=== PATIENT | female | born 1950 | race Caucasian/White ===

== ENCOUNTER 2020-10-13 22:06 | Emergency (ER) | payer MEDICARE, OTHER, SELFPAY ==
[2020-10-13 22:08] VITALS: BP 146/97; PULSE 91; RESP 16; TEMP 36.6; O2SAT 98; BMI 32.9
[2020-10-13 22:40] LABS: Bedside Glucose 172 mg/dL (70-110)
--- NOTE | 2020-10-13 22:51 | CT_ITS ---
STUDY: CTA CHEST REASON FOR EXAM: Female, 70 years old. chest pain RADIATION DOSAGE (If Supplied By Facility): CTDIvol = ( 14.15 ) mGy, DLP = ( 437.91 ) mGycm TECHNIQUE: The examination was performed with the intravenous administration of IV 100mL Isovue-300. Post-processing of the angiographic images was performed, with multiplanar reformation and 3D reconstruction. Individualized dose optimization techniques were used for this CT. COMPARISON: None. FINDINGS: Normal enhancement of the main pulmonary artery and right and left pulmonary arteries. Normal enhancement of the bilateral peripheral pulmonary arteries. There is no demonstrated pulmonary embolism. Normal thoracic aorta and visualized great vessels. There is no demonstrated aortic dissection. Normal heart and pericardium. Normal mediastinum. Normal hilar regions. Normal visualized trachea and bronchi. The lungs are well expanded. Normal pulmonary parenchyma. Normal pleura. Normal chest wall structures. Normal osseous structures. Normal visualized upper abdomen. CT/CTA Chest W/WO Contrast IMPRESSION: No evidence of pulmonary embolism or aortic dissection. No evidence of acute cardiopulmonary process or focal consolidation. Electronically Signed: Jorge Sorensen DO at 0:04 EDT , Service support ,
--- NOTE | 2020-10-13 22:51 | EDS_ITS ---
HPI History of Present Illness Chief Complaint: Syncope Narrative Narrative: 70-year-old female presenting for evaluation after having a syncopal episode. She states she was on a riding lawnmower when she passed out and fell into the [place]. She is unsure if she hit her head on the ground or on logs. She is unsure how long she was unconscious. When she woke up she states that she was a little bit dizzy and nauseous. She states that prior to this event she had some epigastric pain which she states was achy. She is not having this currently. She does state that sometimes she has some left shoulder pain. She states that her left shoulder hurts a little bit now but she is not having any problem moving it. Patient has superficial abrasions on the left catholic and on the left side of the nose and she states this is likely from her glasses being knocked off when she fell. Patient does not have a cardiac history. She does have a history of breast cancer. Prior to this event she felt well but she states she was hungry. [facility] Medical History Breast cancer Carpal tunnel syndrome of left wrist Carpal tunnel syndrome of right wrist Allergy/AdvReac Type Severity Reaction Status Date / Time Penicillins Allergy Swelling Verified 10/13/20 22:10 Sulfa (Sulfonamide Allergy Itching Verified 10/13/20 22:10 Antibiotics) Social History Smoking Status: Never smoker ROS ROS ED Constitutional Constitutional ED: Denies chills, fever(s) or sweats Eyes Eyes: Denies blurry vision or change in vision ENT ENT ED: Denies ear pain, rhinorrhea or sore throat Cardiovascular Cardiovascular: Denies chest pain, palpitations or racing heartbeat Respiratory/Chest Respiratory/Chest: Denies cough, dyspnea or sputum Gastrointestinal Gastrointestinal: Reports nausea and other Details: Epigastric pain resolved. ; Denies abdominal pain, constipation, diarrhea or vomiting Genitourinary Genitourinary ED: Denies dysuria, hematuria or urinary frequency Musculoskeletal Musculoskeletal: Denies arthralgias, myalgias or neck pain Integumentary Reports Abrasions and other Details: Superficial abrasions to left catholic and the left side of her nasal bone. ; Denies abscess or rash Neurologic Neurologic: Denies paresthesias or weakness Psychiatric Psychiatric: Denies anxiety, depression, suicidal ideation or suicidal thoughts Endocrine Endocrinology: Denies polydipsia or polyuria EXAM Physical Exam Const Vital Signs: 10/13/20 22:08 10/13/20 22:37 10/13/20 23:05 Temperature 97.9 F Temperature Source Temporal Pulse Rate 91 Pulse Rate [Lying] Pulse Rate [Sitting] Pulse Rate [Standing] Respiratory Rate 16 Respiratory Pattern Normal Blood Pressure 146/97 H Blood Pressure [Lying] Blood Pressure [Sitting] Blood Pressure [Standing] Blood Pressure Mean 113 Blood Pressure Mean [Lying] Blood Pressure Mean [Sitting] Blood Pressure Mean [Standing] Pulse Ox 98 96 Oxygen Delivery Method Room Air Room Air 10/14/20 00:27 10/14/20 00:30 Temperature Temperature Source Pulse Rate 86 Pulse Rate [Lying] 74 Pulse Rate [Sitting] 78 Pulse Rate [Standing] 85 Respiratory Rate 20 H Respiratory Pattern Blood Pressure 135/86 H Blood Pressure [Lying] 136/74 H Blood Pressure [Sitting] 150/76 H Blood Pressure [Standing] 135/86 H Blood Pressure Mean 102 Blood Pressure Mean [Lying] 94 Blood Pressure Mean [Sitting] 100 Blood Pressure Mean [Standing] 102 Pulse Ox 98 Oxygen Delivery Method Room Air Positive well nourished General Appearance ED: NAD; Negative for pallor HEENT Reports normocephalic, head/scalp atraumatic and moist mucous membranes Negative for trauma Eyes PERRL and EOMs intact bilaterally Neck no lymphadenopathy and supple Chest Wall inspection of chest normal and palpation of chest normal Resp normal respiratory effort and clear to auscultation bilaterally Auscultation: Negative for rales, rhonchi or wheezes Cardio regular rate and regular rhythm Narrative: Deferred Extremity normal to inspection General Extremety ED: Yes edema and tenderness General Extremity: edema Neuro oriented x3 and CN's II-XII intact bilaterally Sensorium / Orientation: alert Motor Exam: strength 5/5 throughout Psych mental status grossly normal Attitude: No agitated Skin Skin Narrative: Superficial abrasions to the left catholic and left side of nose. General Skin Exam: Negative for jaundice or pallor MDM MDM MDM Narrative Medical decision making narrative: Patient presenting with an episode of syncope and states she had epigastric tightness for 4 she had this episode. She fell off of a mower and hit her head on the ground or on log she is unsure. She has superficial abrasions from her glasses. She states she felt a little dizzy earlier but now feels okay. Patient had EKG on arrival which is sinus rhythm at 78 bpm as interpreted by myself. AL interval is 188, QRS duration 80, QTc 421. Chest x-ray shows no acute cardiopulmonary process. The radiologist does agree. Lab work today is unremarkable. Troponin is negative. Patient had CTA of the chest which was also negative for acute findings. Orthostatic vitals are negative at this point I feel it is safe to discharge patient home. She is given return precautions. Prior to leaving patient requested a DVT study of her left lower extremity because its been bothering her for about a week. I did provide her an outpatient order. I do not believe she is to be anticoagulated given that she has a negative CTA and I have low suspicion of DVT in this left leg. Impression: 1. Syncope 2. Closed head injury 3. Left leg pain Lab Data Labs: Laboratory Results - last 24 hr 10/13/20 10/13/20 10/13/20 22:34 23:02 23:02 WBC 10.7 RBC 4.67 Hgb 13.9 Hct 43.0 MCV 92.1 MCH 29.8 MCHC 32.3 RDW Std Deviation 44.2 H RDW Coeff of Joey 13.1 Plt Count 360 MPV 9.0 Immature Gran % (Auto) 0.300 Neut % (Auto) 83.3 H Lymph % (Auto) 10.3 L [place] % (Auto) 5.5 Eos % (Auto) 0.2 Baso % (Auto) 0.4 Absolute Neuts (auto) 9.0 H Absolute Lymphs (auto) 1.11 Nucleated RBC % 0 Sodium 140 Potassium 4.0 Chloride 104 Carbon Dioxide 31.0 Anion Gap 5 BUN 17 Creatinine 0.90 Estim Creat Clear Calc 47.32 Est GFR (MDRD) Af Amer 80 Est GFR (MDRD) Non-Af 66 BUN/Creatinine Ratio 19.0 Glucose 153 H Calcium 9.5 Troponin I < 0.015 POC Glucose 172 H Radiography Diagnostic Testing: Radiology Impression Chest CTA 10/13/20 22:51 IMPRESSION: No evidence of pulmonary embolism or aortic dissection. No evidence of acute cardiopulmonary process or focal consolidation. Electronically Signed: Jorge Sorensen DO at 0:04 EDT , Service support , Chest X-Ray 10/13/20 22:52 IMPRESSION: No acute radiographic abnormalities. Electronically Signed: Vishnu Arnold MD at 23:44 EDT Tel , Service support , Brain CT 10/13/20 22:55 IMPRESSION: No evidence of acute intracranial bleed, mass or ischemia. Electronically Signed: Jorge Sorensen DO at 0:03 EDT , Service support , Discharge Plan Triage Chief Complaint: Syncope ED Provider: Jeanmarie Ernandez Dx/Rx/DC Orders Instructions: ED Concussion, ED Fainting, Uncertain Cause Primary Care Provider: Gerardo Mcnally Referrals: Gerardo Mcnally MD [Primary Care Provider] - Disposition Disposition: Home, self care
--- NOTE | 2020-10-13 22:52 | RAD_ITS ---
INDICATION: chest pain EXAMINATION/TECHNIQUE: X-RAY - XR Chest 1 View COMPARISON: None. FINDINGS: The lungs are clear. The cardiomediastinal silhouette is unremarkable. No pleural effusion or pneumothorax. No acute osseous abnormalities. Postsurgical changes of the left axilla. RAD/Chest 1 View (Portable) IMPRESSION: No acute radiographic abnormalities. Electronically Signed: Vishnu Arnold MD at 23:44 EDT Tel , Service support ,
--- NOTE | 2020-10-13 22:52 | EKG12_ITS ---
Test Reason : SYNCOPE Blood Pressure : / mmHG Vent. Rate : 078 BPM Atrial Rate : 078 BPM P-R Int : 188 ms QRS Dur : 080 ms QT Int : 370 ms P-R-T Axes : 023 -21 -02 degrees QTc Int : 421 ms Normal sinus rhythm Normal ECG Confirmed by ERIBERTO SHINE, WIN ([id number]), makeup editor LISY BASS ([id number]) on 10/17/2020 10:52:37 A M Referred By: RADHA Confirmed By:ERNESTO WEI MD
--- NOTE | 2020-10-13 22:55 | CT_ITS ---
STUDY: CT BRAIN WITHOUT CONTRAST REASON FOR EXAM: Female, 70 years old. head injury RADIATION DOSAGE (If Supplied By Facility): CTDIvol = ( 44.99 ) mGy, DLP = ( 745.49 ) mGycm TECHNIQUE: Transaxial CT imaging of the brain was performed without administration of intravenous contrast material. Individualized dose optimization techniques were used for this CT. COMPARISON: No relevant priors. FINDINGS: Normal soft tissue structures. Normal calvarium. Normal size ventricles and extra-axial spaces for the patient''s age. Normal white matter tracts of the cerebral hemispheres. Normal basal ganglia and thalami. Normal brainstem. Normal cerebellum. There is no intracranial hemorrhage. There are no findings of an acute ischemic infarction. Normal visualized paranasal sinuses. CT/Brain/Head without Contrast IMPRESSION: No evidence of acute intracranial bleed, mass or ischemia. Electronically Signed: Jorge Sorensen DO at 0:03 EDT , Service support ,
[2020-10-13 23:05] VITALS: O2SAT 96
[2020-10-13 23:26] LABS: Anion Gap 5 (5-15); BUN 17 mg/dL (7-18); Calcium,Total 9.5 mg/dL (8.5-10.1); Chloride 104 mmol/L (98-107); EST Glomerular Filtration Rate 66 mL/min (>60); Est Glom Filt Rate - Afr Amer 80 mL/min (>60); Estimated Creatinine Clearance 47.32 ml/min; Glucose 153 mg/dL (74-106); Sodium Level 140 mmol/L (136-145)
[2020-10-13 23:45] LABS: Absolute Lymphocyte Count 1.11 X10^3/uL (0.83-4.51); Basophil# 0.04 X10^3/uL; Basophil% 0.4 % (0-1); Eosinophil# 0.02 X10^3/uL; Eosinophils% 0.2 % (0-5); Hemoglobin 13.9 g/dL (12.0-15.0); Lymphocyte # 1.11 X10^3/ul (0.83-4.51); Lymphocyte % 10.3 % (19-41); Mean Corp Hgb Conc 32.3 g/dL (32-36); Mean Corpuscular Hgb 29.8 pg (27.0-32.0); Mean Corpuscular Volume 92.1 fL (81-99); Monocyte# 0.59 X10^3/uL; Monocyte% 5.5 % (0-10); NRBC Flagged by Analyzer 0 % (0-5); Neutrophil # 8.95 X10^3/uL (2.7-7.7); Neutrophil % 83.3 % (47-70); Platelet Count 360 K/mm3 (150-450); RBC Distribution Width CV 13.1 % (11.6-14.6); RBC Distribution Width SD 44.2 fl (35.1-43.9); Red Blood Count 4.67 M/mm3 (4.2-5.4); White Blood Count 10.7 K/mm3 (4.4-11.0)
[2020-10-14 00:27] VITALS: BP 135/86; BP 136/74; BP 150/76; PULSE 74; PULSE 78; PULSE 85
[2020-10-14 00:30] VITALS: BP 135/86; PULSE 86; RESP 20; O2SAT 98
[2020-10-14 01:06] VITALS: BP 128/76; PULSE 80; RESP 16; O2SAT 98
== END 2020-10-14 01:07 | disposition home or self-care (01) ==
PROVIDERS: Emergency Provider Student in an Organized Health Care Education/Training Program; PCP Family Medicine
DX: R55 Syncope and collapse (principal); S09.90XA Unspecified injury of head, initial encounter; M79.605 Pain in left leg; W19.XXXA Unspecified fall, initial encounter; Z85.3 Personal history of malignant neoplasm of breast
CPT/HCPCS: 70450; 71045; 71275; 80048; 82962; 84484; 85025; 93005; 99285; Q9967; A4216

== ENCOUNTER → 2020-10-14 09:30 | Outpatient (CLI) | payer MEDICARE, OTHER, SELFPAY ==
[2020-10-13 22:08] VITALS: BMI 32.9
--- NOTE | 2020-10-14 09:38 | VDLE_ITS ---
Reason For Study: Pain RIGHT LEFT CFV is compressible, spontaneous, phasic, GSV is normal. competent and demonstrates normal CFV is compressible, spontaneous, phasic, augmentation. competent, and demonstrates normal Procedure augmentation. This is a venous duplex using B-mode, color FV is compressible, spontaneous, phasic, flow and spectral Doppler. competent and demonstrates normal Exam performed in department. augmentation. A preliminary report was called and/or faxed POP V is compressible, spontaneous, phasic, to PCP: Uli. Pt seen in ED 10/14/2020 competent and demonstrates normal 12am. augmentation. T/P Trunk is compressible. PTV is compressible. LT PerV is compressible. Nonvascularized structure noted in the left popliteal fossa measuring approximently 0.81 x 1.59 x 3.96 cm. VL/Venous Duplex US, Unilateral Interpretation Summary Deep veins of the left lower extremity are patent and compressible segmentally. There is no evidence of left lower extremity deep vein thrombosis. Valvular competence appears intac t within the proximal deep venous system on the left . The left great saphenous vein appears patent a nd compressible segmentally. A non-vascular, hypoechoic structure is noted in the left poplitea l space, measuring 0.81 cm x 1.59 cm x 3.96 cm. This probably represents a popliteal cyst. Clinica l correlation is advised. Ordering Physician: Jeanmarie Ernandez Referring Physician: Gerardo Mcnally Performed By: Amy Lewis RVT
== END ==
PROVIDERS: PCP Family Medicine; Referring Provider Student in an Organized Health Care Education/Training Program; Visit Provider Student in an Organized Health Care Education/Training Program
DX: M79.605 Pain in left leg (principal)
CPT/HCPCS: 93971

== ENCOUNTER 2023-04-18 09:30 | Outpatient (RCR) | payer MEDICARE, OTHER, SELFPAY ==
--- NOTE | 2023-03-18 12:57 | HP.PTEVAL_ITS ---
Patient's Visit Information Visit Information Visit Information: LOVE PATIÑO is a 72 year old F referred to Physical Therapy by Dr. Justin Das MD with a diagnosis of UNILATERAL PROMARY OSTEOARTHRITIS ,RIGHT ,LEFT KNEE. Date of Evaluation: 03/18/23 Physical Therapist: Guicho Strange, PT, Cert MDT, OCS Visit Plan Frequency: 2x /Week Duration: 4 Weeks Plan: PT INTEREVTIONS AQUATIC THERAPY FOR ROM/STRENGTH BLE QUADS/HAMS/HIP ,FLEXABILITY AND FUNCTIONAL STRENGTHNEING Subjective Subjective: This 72 y/o female presents to physical therapy with bilateral knee pain from OA. Patient has had knee pain ~ 6 years . Patient had x-rays showed progressive DJD on left ,but may need right TKA initial. Seen Dr Das prescribed meloxicam and did cortisone injection. Recommended PT. Pain located global knee right > left. Aggravating factors walking ,stairs ,unable to knee and squat. Alleviating factors rest. Denies paresthesia/tingling -. Patient pain affects sleeping. Patient pain affects QOL and function and housework tasks. Patient is candidate for TKA. Patient goals to to decrease pain. SOCIAL: VOCATION: retired Pain Bilateral Knee: Pain Intensity (Out of 10): 7 Pain Intensity Range: 10 Objective Objective: POSTURE: mild forward posture GAIT: reciprocal pattern mild forward posture PALAPTION: tender medial/lateral knee EDEMA: absent STAIRS: one step at time AROM: 0-110 supine knee flexion MMT: ( peak force) quads right 27.7 ,left 22.1 ,hamstrings right 20.3 ,left 15.3 Special Tests R Knee Valgus - MCL: Negative R Knee Varus - LCL: Negative R Knee Patellar Apprehension - PFS: Negative R Knee Patellar Grind - PFS: Negative L Knee Valgus - MCL: Negative L Knee Varus - LCL: Negative L Knee Patellar Apprehension - PFS: Negative L Knee Patellar Grind - PFS: Negative Balance/Special Test Scores Lower Extremity Functional Score: 33 Goals Goal 1:: I with Aquatic Therapy for knees Goal Time Frame: 4-6 Weeks Goal 2:: Patient to improve AROM knee flexion by 5-10 degrees to improve stairs Goal Time Frame: 4-6 Weeks Goal 3:: Patient to improve peak force quads/hams by 5-10 # strength to improve gait Goal Time Frame: 4-6 Weeks Goal 4:: Patient to improve LFES score by 5-10 points to improve QOL and function Goal Time Frame: 4-6 Weeks Goal 5:: Patient to demonstrate 50% improvement with improve function and less pain Goal Time Frame: 4-6 Weeks Rehabilitation Potential Physical Therapy Diagnosis: This patient has bilateral knee pain with osteoarthritis with pain ,weakness ,decrease ROM impairs gait ,stairs and candidate for TKA in future thus benefit from skilled PT Rehabilitation Potential: Good Anticipated Interventions Patient/Client Instruction: Educate patient on: Condition and Plan of Care For the Purpose of:: To decrease pain, To increase ROM, To improve muscle performance and motor function, To improve ability to perform ADL's, To increase tolerance to activity/condition/position, To improve ability of physical actions for home/community/work/leisure, To improve gait and locomotor functions, To decrease soft tissue restriction, To increase flexibility/ROM and To improve endurance Therapeutic Exercise to Include: Strength training, Endurance training, Balance training, Postural training, Flexibilty training, In an aquatic setting, Passive ROM and Active ROM For the Purpose of:: To decrease pain, To increase ROM, To improve nutrient delivery to tissue, To increase oxygenation perfusion, To improve health of tissue, To decrease soft tissue restriction and To increase flexibility/ROM Text: Thank you for the opportunity to evaluate your patient. For Medicare and Medicare HMO plans, please review the plan of care and approve it. It will need to be FAXED BACK to us at [phone] for Medicare purposes. For Medicare only, by signing this I certify the plan of care. Please let me know if there are questions or concerns regarding this plan of care. Physician Signature: Date:__
--- NOTE | 2023-04-18 10:02 | HP.PTDCSUM ---
Discharge Summary D/C summary: It has been my pleasure to treat LOVE PATIÑO referred by Dr. Justin Das MD, with the diagnosis of UNILATERAL PROMARY OSTEOARTHRITIS ,RIGHT ,LEFT KNEE for a total of 10 visit(s). Discharge Date: 04/18/23 Please see the following information for a summary of their discharge status. Subjective Subjective: Will try water ,on own Pain Bilateral Knee: Pain Intensity (Out of 10): 6 Overall Improvement % Improvement: 20 Objective Objective/Function: POSTURE: mild forward posture GAIT: reciprocal pattern mild forward posture PALAPTION: tender medial/lateral knee EDEMA: absent STAIRS: one step at time AROM: 0-110 supine knee flexion MMT: ( peak force) quads right 27.7 ,left 22.1 ,hamstrings right 20.3 ,left 15.3 Goals Goal 1:: I with Aquatic Therapy for knees Goal Progress: Goal Met Goal 2:: Patient to improve AROM knee flexion by 5-10 degrees to improve stairs Goal Progress: Progressing Goal 3:: Patient to improve peak force quads/hams by 5-10 # strength to improve gait Goal Progress: Progressing Goal 4:: Patient to improve LFES score by 5-10 points to improve QOL and function Goal Progress: Progressing Goal 5:: Patient to demonstrate 50% improvement with improve function and less pain Goal Progress: Progressing Plan Plan: D/C D/C Information Discharge Comments: HEP AND AQAUTICS d/c sentence: If there are questions or concerns regarding this patient's physical therapy, please feel free to call me at [phone]. Thank you for the referral of this patient. Sincerely, Guicho Strange, PT, Cert MDT, OCS Balance/Gait/Functional tests Balance/Special Test Scores Lower Extremity Functional Score: 45 Improvement % Improvement: 20
== END 2023-04-18 19:00 | disposition home or self-care (01) ==
LOC: PT 09:30
PROVIDERS: PCP Family Medicine; Visit Provider Specialist
DX: M17.0 Bilateral primary osteoarthritis of knee (principal)
CPT/HCPCS: 97113; 97162; 97530

== ENCOUNTER → 2023-07-08 | Outpatient (CLI) | payer MEDICARE, OTHER, SELFPAY ==
--- NOTE | 2023-07-08 07:31 | EKG12_ITS ---
Test Reason : PREOP Blood Pressure : / mmHG Vent. Rate : 068 BPM Atrial Rate : 068 BPM P-R Int : 200 ms QRS Dur : 078 ms QT Int : 364 ms P-R-T Axes : 018 -21 -01 degrees QTc Int : 387 ms Normal sinus rhythm Normal ECG Confirmed by Harrison Walker ([id number]), commercial production editor BIMAL LOGAN ([id number]) on 07/09/2023 7:17:32 AM Referred By: Justin Das Confirmed By:Harrison Walker
--- NOTE | 2023-07-08 07:42 | CT_ITS ---
CT RIGHT LOWER EXTREMITY WITH 3-D IMAGING CLINICAL INDICATION: Pain in right knee TECHNIQUE: Axial CT images of the RIGHT lower extremity was performed without IV contrast material. Coronal and sagittal reformats were provided. RADIATION DOSAGE (If Supplied By Facility): CTDIvol = ( 18.76 ) mGy, DLP = ( 1521.29 ) mGycm COMPARISON: No relevant prior comparison study available FINDINGS: Bones: Imaging of the right hip joint was obtained. There is a mild degree of joint space narrowing. No significant abnormality is seen. Imaging of the right knee joint was obtained. Moderate to severe degree of the joint space narrowing of the medial compartment of knee joint with degenerative spur formation of the distal femoral medial condyle. Mild degree of joint space narrowing of the patellofemoral joint. Tiny joint effusion. Imaging of the ankle joint was obtained. There is evidence of a calcaneal plantar spur. Soft Tissues: The deep soft tissue structures are unremarkable. The superficial soft tissues are unremarkable without evidence of edema, hematoma, or foreign body. CT/Extremity Lower without Contra IMPRESSION: Moderate to severe narrowing of the medial compartment of the right knee joint with degenerative spur formation along the medial distal femoral condyle. Tiny joint effusion. Electronically Signed: Lei Howard MD at 14:29 EDT ,
--- OUTSIDE RECORDS SUMMARY | 2023-07-08 07:42 | XMS RPT_ITS | CCD ---
Author Name Unknown Address [address] [place] [address] Organization [facility] Care Team Providers Care Head [employer] Assistant Teacher Name Role Phone John SHINE MD, Juan Unavailable Isaiah Saleh MD Primary Care Provider [phone] URSULA UGARTE Attending Unavailable ISAIAH SALEH Primary Care Unavailable ISAIAH SALEH Referring Unavailable ISAIAH SALEH Primary Care Unavailable ISAIAH SALEH Primary Care Unavailable STEPHANE VAZ Referring Unavailable STEPHANE VAZ Attending Unavailable ISAIAH SALEH Primary Care Unavailable STEPHANE VAZ Referring Unavailable Allergies Allergy Classification Reported Allergen(s) Allergy Type Date of Onset Reaction(s) Facility (18 sources) Penicillin; Translations: [PENICILLIN] Drug Allergy 01-12-2016 Anaphylaxis [facility] Work Phone: (18 sources) Sulfonamides (Antibiotic); Translations: [SULFA (SULFONAMIDE ANTIBIOTICS)] Drug Allergy 01-12-2016 Itching [facility] Work Phone: Medications Current Medications Medication Drug Class(es) Dates Sig (Normalized) Sig (Original) perflutren lipid microspheres 1.3 mL in NaCl (PF) 0.9% 10 mL injection (DEFINITY) (12 sources) Start: 10-28-2020 End: 01-27-2022 perflutren lipid microspheres 1.3 mL in NaCl (PF) 0.9% 10 mL injection (DEFINITY) 125 ml sodium chloride 9 mg/ml prefilled syringe (12 sources) Start: 10-28-2020 End: 01-27-2022 sodium chloride 0.9 % (flush) 10 mL (BD POSIFLUSH) Completed/Discontinued Medications Medication Drug Class(es) Dates Sig (Normalized) Sig (Original) acetaminophen 325 mg oral tablet (4 sources) Start: 04-06-2021 End: 12-14-2021 take 2 tablets by mouth every six hours acetaminophen (TYLENOL) 325 mg tablet Take 2 tablets by mouth every 6 hours. 120 tablet 0 04/06/2021 12/14/2021 Discontinued Problems Active Problems Problem Classification Problem Date Documented Da te Episodic/Chronic Cancer of breast (20 sources) Malignant neoplasm of upper-outer quadrant of female breast; Translations: [Malignant neoplasm of upper-outer quadrant of left female breast] Onset: 6 09-02-2020 Chronic Cancer of breast (2 sources) History of malignant neoplasm of breast; Translations: [Personal history of malignant neoplasm of breast] Episodic Esophageal disorders (1 source) Gastroesophageal reflux disease without esophagitis; Translations: [Gastro-esophageal reflux disease without esophagitis] Chronic Genitourinary symptoms and ill-defined conditions (18 sources) Incontinence; Translations: [Mixed incontinence] Onset: 2 05-12-2021 Chronic Other aftercare (20 sources) Patient encounter status; Translations: [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] Onset: 1 09-02-2020 Episodic Other diseases of veins and lymphatics (17 sources) Lymphedema of left upper limb; Translations: [Lymphedema, not elsewhere classified] Onset: 7 09-02-2020 Chronic Other ear and sense organ disorders (1 source) Impacted cerumen in right ear; Translations: [Impacted cerumen, right ear] Episodic Other gastrointestinal disorders (1 source) Chronic constipation; Translations: [Other constipation] Episodic Other nutritional; endocrine; and metabolic disorders (14 sources) Obesity; Translations: [Other obesity due to excess calories] Onset: 1 04-03-2021 Chronic Other nutritional; endocrine; and metabolic disorders (3 sources) Obesity caused by energy imbalance; Translations: [Other obesity due to excess calories] Onset: 1 04-03-2021 Chronic Other nutritional; endocrine; and metabolic disorders (1 source) Obese class I; Translations: [Obesity, unspecified] Onset: 1 03-19-2023 Chronic Other screening for suspected conditions (not mental disorders or infectious disease) (7 sources) Ultrasonography of breast abnormal; Translations: [Other abnormal and inconclusive findings on diagnostic imaging of breast] Onset: Episodic Prolapse of female genital organs (20 sources) Midline cystocele; Translations: [Cystocele, midline] Onset: 10-28-2020 Chronic Superficial injury; contusion (1 source) Foreign body in hand; Translations: [Superficial foreign body of right hand, initial encounter] Episodic Past or Other Problems Problem Classification Problem Date Documented Da te Episodic/Chronic Administrative/social admission (13 sources) Advance directive discussed with patient; Translations: [Other specified counseling] Onset: 12-26-2021 Episodic Anal and rectal conditions (17 sources) Incomplete rectal prolapse; Translations: [Rectal prolapse] Onset: 03-14-2021 03-14-2021 Episodic Diabetes mellitus without complication (20 sources) Hyperglycemia; Translations: [Hyperglycemia, unspecified] Onset: 09-02-2020 09-02-2020 Episodic Hemorrhoids (17 sources) Hemorrhoids; Translations: [Unspecified hemorrhoids] Onset: 03-14-2021 03-14-2021 Episodic Other aftercare (1 source) 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; Translations: [Medication management] Onset: 09-02-2020 Episodic Other bone disease and musculoskeletal deformities (18 sources) Senile osteopenia; Translations: [Other specified disorders of bone density and structure, unspecified site] Onset: 02-10-2019 09-02-2020 Episodic Other diseases of veins and lymphatics (17 sources) Peripheral venous insufficiency; Translations: [Venous insufficiency (chronic) (peripheral)] Onset: 03-09-2019 09-02-2020 Episodic Residual codes; unclassified (16 sources) Postoperative state; Translations: [Other specified postprocedural states] Onset: 05-12-2021 05-12-2021 Episodic Residual codes; unclassified (1 source) Estrogen receptor positive status [ER+]; Translations: [Malignant neoplasm of upper-outer quadrant of left breast in female, estrogen receptor positive (HCC)] Onset: 09-02-2020 Episodic Results Test Name Value Interpretation Reference Range Facil ity Vital Signs Date Time Vital Sign Value Performing Clinician Alma telles 01-04-2023 08:30-0400 Body height 159 cm Stephane Vaz APRN.CNP Work Phone: [facility] 01-04-2023 08:30-0400 Body temperature 98.4 [degF] Fox Vaz CLOCK AND WATCH HANDS PAINTER.POCKET CREASER Work Phone: [facility] 01-04-2023 08:30-0400 Body weight 83.01 kg Stephane Arringtonenter CLOCK AND WATCH HANDS PAINTER.POCKET CREASER Work Phone: [facility] 01-04-2023 08:30-0400 Diastolic blood pressure 56 mm[Hg] Fox Vaz CLOCK AND WATCH HANDS PAINTER.POCKET CREASER Work Phone: [facility] 01-04-2023 08:30-0400 Heart rate 78 /min Fox Vaz CLOCK AND WATCH HANDS PAINTER.POCKET CREASER Work Phone: [facility] 01-04-2023 08:30-0400 SaO2% (BldA) [Mass fraction] 97 % Stephane Vaz CLOCK AND WATCH HANDS PAINTER.POCKET CREASER Work Phone: [facility] 01-04-2023 08:30-0400 Systolic blood pressure 118 mm[Hg] Stephane Vaz CLOCK AND WATCH HANDS PAINTER.POCKET CREASER Work Phone: [facility] 12-26-2021 09:31-0400 Body height 158.5 cm Ursula Ugarte PA-C Work Phone: [facility] 12-26-2021 09:31-0400 Body temperature 97.39 [degF] Ursula Ugarte PA-C Work Phone: [facility] 12-26-2021 09:31-0400 Body weight 82.1 kg Ursula Ugarte PA-C Work Phone: [facility] 12-26-2021 09:31-0400 Diastolic blood pressure 76 mm[Hg] Ursula Ugarte PA-C Work Phone: [facility] 12-26-2021 09:31-0400 Heart rate 72 /min Ursula Ugarte PA-C Work Phone: [facility] 12-26-2021 09:31-0400 Respiratory rate 18 /min Ursula Ugarte PA-C Work Phone: [facility] 12-26-2021 09:31-0400 Systolic blood pressure 110 mm[Hg] Ursula Ugarte PA-C Work Phone: [facility] 12-25-2021 08:57-0400 Body height 157.5 cm Azra Meeks MD Work Phone: [facility] 12-25-2021 08:57-0400 Body weight 82.1 kg Azra Meeks MD Work Phone: [facility] 12-25-2021 08:57-0400 Diastolic blood pressure 73 mm[Hg] Azra Meeks MD Work Phone: [facility] 12-25-2021 08:57-0400 Heart rate 81 /min Azra Meeks MD Work Phone: [facility] 12-25-2021 08:57-0400 SaO2% (BldA) [Mass fraction] 96 % Azra Meeks MD Work Phone: [facility] 12-25-2021 08:57-0400 Systolic blood pressure 108 mm[Hg] Azra Meeks MD Work Phone: [facility] 12-14-2021 08:27-0400 Body height 159.8 cm Stephane Vaz CLOCK AND WATCH HANDS PAINTER.POCKET CREASER Work Phone: [facility] 12-14-2021 08:27-0400 Body temperature 98.2 [degF] Stephane Vaz CLOCK AND WATCH HANDS PAINTER.POCKET CREASER Work Phone: [facility] 12-14-2021 08:27-0400 Body weight 81.19 kg Fox Vaz CLOCK AND WATCH HANDS PAINTER.POCKET CREASER Work Phone: [facility] 12-14-2021 08:27-0400 Diastolic blood pressure 74 mm[Hg] Stephane Vaz CLOCK AND WATCH HANDS PAINTER.POCKET CREASER Work Phone: [facility] 12-14-2021 08:27-0400 Heart rate 81 /min Fox Vaz CLOCK AND WATCH HANDS PAINTER.POCKET CREASER Work Phone: [facility] 12-14-2021 08:27-0400 SaO2% (BldA) [Mass fraction] 98 % Stephane Vaz CLOCK AND WATCH HANDS PAINTER.POCKET CREASER Work Phone: [facility] 12-14-2021 08:27-0400 Systolic blood pressure 107 mm[Hg] Stephane Vaz CLOCK AND WATCH HANDS PAINTER.POCKET CREASER Work Phone: [facility] 09-14-2021 15:23-0400 Body temperature 97.81 [degF] Myra Lindo APRN.POCKET CREASER Work Phone: [facility] 09-14-2021 15:23-0400 Body weight 82.74 kg Myra Lindo APRN.POCKET CREASER Work Phone: [facility] 09-14-2021 15:23-0400 Diastolic blood pressure 78 mm[Hg] Myra Lindo APRN.POCKET CREASER Work Phone: [facility] 09-14-2021 15:23-0400 Heart rate 81 /min Myra Lindo APRN.POCKET CREASER Work Phone: [facility] 09-14-2021 15:23-0400 Respiratory rate 18 /min Myra Lindo APRN.POCKET CREASER Work Phone: [facility] 09-14-2021 15:23-0400 SaO2% (BldA) [Mass fraction] 98 % Myra Lindo APRN.POCKET CREASER Work Phone: [facility] 09-14-2021 15:23-0400 Systolic blood pressure 122 mm[Hg] Myra Lindo APRN.POCKET CREASER Work Phone: [facility] Encounters Encounter Date Encounter Type Care Provider Facility Start: 05-20-2023 End: 05-20-2023 ambulatory URSULA UGARTE Facility:[facility] Start: 05-15-2023 End: 05-16-2023 ambulatory ISAIAH SALEH Facility:[facility] Start: 03-18-2023 ambulatory sIaiah healy MD Work Phone: [facility] Procedures Date Procedure Procedure Detail Performing Clinician Start: 01-01-2023 Mammography Mammograph y Coordinator Start: 12-28-2021 BREAST BIOPSY LEF T (POC) SURG USE ONLY Azra Meeks MD Work Phone: Start: 12-26-2021 Adult depression screening assessment Ursula Ugarte PA-C Work Phone: Start: 12-26-2021 Lipid 1996 panel - S lanette or Plasma Isaiah Saleh MD Work Phone: Start: 12-11-2021 MAVERICK SCREENING W LOIDA Paige CLOCK AND WATCH HANDS PAINTER.POCKET CREASER Work Phone: Start: 12-11-2021 Mammography Screen Wst r Start: 03-24-2021 Antibody screen Plan of Treatment Date Care Activity Detail Author Start: 12-19-2030 Colonoscopy COLONOSCOPY [facility] Start: 12-19-2030 COLORECTAL CANCER SCREENING COLORECTAL CANCER SCREENING [facility] Start: 12-26-2026 Lipid 1996 panel - Serum or Plasma Lipid Screening [facility] Start: 12-26-2026 LIPID SCREEN LIPID SCREEN [facility] Start: 07-16-2026 Urine microalbumin profile [facility] Start: 09-02-2025 LIPID SCREEN LIPID SCREEN [facility] Start: 12-26-2024 DIABETES SCREEN DIABETES SCREEN [facility] Start: 12-26-2024 Diabetes Screening Diabetes Screening [facility] Start: 03-24-2024 DIABETES SCREEN DIABETES SCREEN [facility] Start: 01-02-2024 Mammography [facility] Start: 04-26-2023 End: 07-26-2023 CBC W Auto Differential panel - Blood CBC + DIFF Lab Routine Medication management Expected: 04/26/2023, Expires: 07/26/2023 [facility] Work Phone: Immunizations Immunization Date Immunization Notes Care Provider Darrell galeana 03-04-2021 COVID-19 vaccine, ag e 12+ yr (PFIZER-BIONTECH - PURPLE TOP) Myra Lindo APRN.POCKET CREASER Work Phone: [facility] 02-17-2021 influenza, high dose seasonal, preservative-free Myra Lindo APRN.POCKET CREASER Work Phone: [facility] 09-02-2020 pneumococcal polysaccharide vaccine, 23 valent Myra Lindo APRN.POCKET CREASER Work Phone: [facility] 07-07-2020 COVID-19 vaccine (JOCE) Myra Lindo APRN.POCKET CREASER Work Phone: [facility] Work Phone: 02-10-2019 influenza, high dose seasonal, preservative-free Myra Lindo APRN.POCKET CREASER Work Phone: [facility] 02-19-2018 pneumococcal conjuga te vaccine, 13 valent Myra Lindo APRN.POCKET CREASER Work Phone: [facility] 02-11-2018 influenza, high dose seasonal, preservative-free Myra Lindo APRN.POCKET CREASER Work Phone: [facility] Work Phone: 05-10-2017 influenza, injectabl e, quadrivalent, preservative free Myra Lindo APRN.POCKET CREASER Work Phone: [facility] Work Phone: 07-16-2016 tetanus toxoid, redu noah diphtheria toxoid, and acellular pertussis vaccine, adsorbed Myra Lindo APRN.POCKET CREASER Work Phone: [facility] 03-18-2015 zoster vaccine, live Herminia halee Guicho LANE.POCKET CREASER Work Phone: [facility] Payers Date Payer Category Payer Medicare [id number] 2019 Unknown MMO MMO MEDICARE SUPPLEMENT [id number] 2019-Present [phone] [address] [place] [address] Indemnity [id number] 2019 Unknown MMO MMO MEDICARE SUPPLEMENT [id number] 2019-Present [phone] [address] [place] [address] Indemnity [id number] 2017 Medicare MEDICARE MEDICAR E A AND B [id number] 2017-Present [phone] [address] [address] [place] [address] Medicare [id number] 2017 Medicare MEDICARE MEDICAR E A AND B [id number] 2017-Present [phone] [place] [address] Medicare [id number] 2017 Medicare [id number] Social History Date Type Detail Facility Start: 01-12-2016 End: 12-26-2021 Tobacco smoking status NHIS Never smoked tobacco [facility] Work Phone: Start: 01-12-2016 End: 12-26-2021 Tobacco use and exposure Smokeless tobacco non-user [facility] Work Phone: Start: 09-14-2021 End: 03-19-2023 Alcohol intake Current drinker of alcohol (finding) [facility] Start: 08-31-2020 End: 12-21-2021 History SDOH Alcohol Frequency 2 [facility] Start: 08-31-2020 End: 12-21-2021 History SDOH Alcohol Std Drinks 1 [facility] Start: 01-12-2016 History SDOH Alcohol Comment wine = 2/month [facility] Start: 08-31-2020 End: 12-21-2021 History SDOH Social Connections Phone 5 [facility] Start: 08-31-2020 End: 12-21-2021 History SDOH Social Connections Judaism 3 [facility] Start: 08-31-2020 Education 12 [facility] Start: 1950 Sex Assigned At Female [facility] Start: 09-04-2021 End: 12-28-2021 Exposure to SARS-CoV-2 (event) Not sure [facility] Work Phone: Start: 12-21-2021 History SDOH Physical Activity DPW 6 [facility] Start: 12-21-2021 End: 01-01-2023 History of Social function [facility] Start: 12-21-2021 End: 01-01-2023 Social connection and isolation panel [facility] Do you belong to any clubs or organizations such as voodoo groups, unions, fraternal or athletic groups, or school groups? Yes [facility] Are you now , , , , never or living with a partner? [facility] How often to you hav e a drink containing alcohol? Monthly or less [facility] How many standard dr inks containing alcohol do you have on a typical day? 1 or 2 [facility] How often do you hav e 6 or more drinks on 1 occasion? Never [facility] How hard is it for y ou to pay for the very basics like food, housing, medical care, and heating Not hard at all [facility] Do you feel stress - tense, restless, nervous, or anxious, or unable to sleep at night because your mind is troubled all the time - these days [OSQ] Only a little [facility] (I/We) worried clare er (my/our) food would run out before (I/we) got money to buy more. Never true [facility] In the past 12 month s, was there a time when you were not able to pay the mortgage or rent on time? No [facility] Start: 12-01-2019 Gender identity Identifies as female gender (finding) [facility] Start: 12-01-2019 Sexual orientation Heterosexual (finding) [facility] Clinical Notes 10-28-2020 to 05-20-2023 Telephone Encounter - Nisha Lindo MA - 03/19/2023 12:19 PM ESTTelephone Encounter - Isaiah Saleh MD - 03/19/2023 12:06 PM ESTTelephone Encounter - Nisha Lindo MA - 03/19/2023 8:11 AM EST Note Date & Type Note Facility 05-20-2023 Note HNO ID: [id number] Author: URSULA UGARTE PA-C Service: ? Author Type: Physician Workforce Management Coordinator Type: Progress Notes Filed: 05/20/2023 11:34 Note Text: Li Pino is a 72 year old female here for a Medicare wellness visit. Medicare Health Risk Assessment General Health Good Exercise: Minutes/Day 20 min Exercise: Days/Week 3 days Alcohol: Daily Use Monthly or less Alcohol: Drinks/Day 1 or 2 Alcohol: 6 or more drinks Never Feel off balance No Concerns: Teeth/Dentures No Concerns: Sexual function No Troubled by feelings None of the above Frequency: Eating healthy diet More than half the days ADLs requiring help None of the above Safety precautions in home/vehicle Yes Smoke, vape, chews tobacco No Difficulty hearing No Difficulty seeing No Current Providers Specialists: I have reviewed specialist-related care of the patient in the medical record. Medical/Family history review Reviewed and updated problem list, medical/surgical/family/social history, medications, and allergies. Opioid use review Opioid Medications (last 90 days) Some values may be hidden. Unless noted otherwise, only the newest values recorded on each date are displayed. Opioid Medications No data to display. Depression screening Depression Screening PHQ-2 Score 05/20/2023 0 Depression screening tool completed and reviewed. Based on score and interview, patient is not at risk for depression. Screening tool discussed with patient, and I recommended no further intervention at this time. Cognitive screening Mini Cog Score: 5 Cognitive screening reviewed and no further action needed (score 3-5) Functional Observation Was the patient's Timed Up AND Go test unsteady or ? 12 seconds? No Advance Care Planning Surrogate decision maker and/or advance care plan documented Measurements BP 124/80 Pulse 76 Temp 97.9 Resp 16 Ht 5' 2.205 (1.58m) Wt 184 lb (83.5kg) LMP 01/27/2003 BMI 33.43 kg/(m2). Additional screenings: No results found. Assessment/Plan Medicare annual wellness visit, subsequent (Z00.00) - Counseled on healthy diet and regular exercise - Fall avoidance information provided - Personalized prevention plan provided Chief Complaint Patient presents with: Medicare Wellness Exam HPI Li Pino is a 72 year old female who presents here today for extensive exam. Patient with hx of elevated glucose, breast cancer and those as below. No major concerns today. Last 3 Encounter Wt Readings: Date: Wt: 05/20/2023 83.5 kg (184 lb) 01/04/2023 83 kg (183 lb) 12/26/2021 82.1 kg (181 lb) Past medical history, appointments, medications, allergies reviewed. Previous Medical History PAST MEDICAL HISTORY Diagnosis Date Arthritis Breast cancer of upper-outer quadrant of left female breast (HCC) 01/12/2016 Cystocele, midline 09/02/2020 Elevated blood sugar 09/02/2020 History of colonic polyps 10/28/2020 Lymphedema of left upper extremity 05/14/2016 S/p mastectomy and node biopsy Malignant neoplasm of upper-outer quadrant of left breast in female, estrogen receptor positive (HCC) (HCC) 11/06/2016 Medicare annual wellness visit, subsequent 02/10/2019 Medical B eligibilty date 06/27/2017 Last done 09/02/2020 Mixed incontinence 05/12/2021 Obesity, Class I, BMI 30-34.9 04/03/2021 Osteopenia PONV (postoperative nausea and vomiting) Venous insufficiency (chronic) (peripheral) 03/09/2019 Previous Surgical History PAST SURGICAL HISTORY Procedure Laterality Date BREAST SURGERY HX Left lumpectomy, followed by radiation and pills CARPAL TUNNEL 2013 Bilateral COLONOSCOPY 2016 repeat 5 yrs COLONOSCOPY FLX DX W/COLLJ SPEC WHEN PFRMD 12/19/2020 DILATION AND CURETTAGE DXAND/THER NONOBSTETRIC 1980 Dilation AND curettage MASTECTOMY, PARTIAL Left 01/03/2016 lymph node bx(13) PAST SURGICAL HISTORY OF PAST SURGICAL HISTORY OF 03/2021 vaginal hysterectomy, ovaries remain TONSILLECTOMY HX denies Family History FAMILY HISTORY Problem Relation Age of Onset Cancer Brother age 59 Lymphoma/liver disease Colon Cancer Maternal Aunt Colon Cancer Maternal Uncle Breast Cancer Mother 57 age 60 Diabetes Father Heart Father GI Father bleeding ulcers Patient Allergies ALLERGIES Allergen Reactions Penicillin Anaphylaxis Sulfa (Sulfonamide * Itching Current Medications Current Outpatient Medications on File Prior to Visit Medication Sig guaiFENesin (MUCINEX) 600 mg 12 hr tablet Take 1,200 mg by mouth once daily. Biotin 1 mg tab Take 1 tablet by mouth every other day. naproxen sodium (ALEVE ORAL) Take 1 tablet by mouth once daily. docusate sodium (COLACE ORAL) Take 1 tablet by mouth once daily. CALCIUM CARBONATE (TUMS ORAL) Take 1-2 tablets by mouth once daily. Cholecalciferol, Vitamin D3, 50 mcg (2,000 unit) cap Take 1 capsule by mouth once daily. Iicudtxq-Jfgksqf-Qqbz-Lutein tab Take 1 tablet by mouth once (more content not included)... [facility] 04-19-2023 Note HNO ID: [id number] Author: Christiano Suazo LPN Service: ? Author Type: LICENSED NURSE Type: Progress Notes Filed: 04/19/2023 7:57 AM Note Text: Scan on 04/18/2023 4:42 PM by Provider, External, PARadhaC: Consultation - PT/OT/Speech [facility] 03-19-2023 Miscellaneous Notes Patient notified. Nisha Lindo MA Et patient know non-fasting labs placed that can be done prior to her appt. Patient is scheduled for 05/07 for medicare wellness. Please place lab orders. Nisha Lindo MA documented in this encounter [facility] 01-04-2023 Note HNO ID: [id number] Author: Stephane Vaz APRN.POCKET CREASER Service: ? Author Type: Nurse Practitioner Type: Progress Notes Filed: 01/04/2023 9:14 AM Note Text: Chief Complaint Patient presents with: Established Patient HPI: Li Pino is a 72 year old female who presents here today for follow up breast cancer. Per Dr. Dhaliwal's previous note: H/o arthritis. She was found to have an abnormality in the left breast on a routine screening mammogram. There was a 1-1/2 cm irregular density in the upper outer quadrant. The patient underwent an ultrasound which redemonstrated a 1.6 cm mass in the left upper outer quadrant at anterior depth. The patient underwent a core needle biopsy on 12/05/2015. The pathology demonstrated an invasive moderately differentiated ductal carcinoma, nuclear grade 2. ER >90%, strong and KS 60%, weak to moderate. HER2 quantified at 1+. She then underwent a left-sided lumpectomy with sentinel lymph node biopsy followed by completion axillary dissection on 01/03/2016. Final pathology demonstrated a single focus of invasive malignancy in the left breast measuring 1.9 cm. The overall grade was 2. Margins were negative. The closest was 0.4 mm on the medial margin. Lymphovascular invasion was identified. 2 sentinel lymph nodes removed. 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 An additional 11 lymph nodes were negative. Oncotype:Recurrence score 10 indicating the estimated risk of recurrence with the use of tamoxifen alone at 9%. Radiation: DATES OF TREATMENT: 02/20/16 to 04/04/16 Previous therapy:Arimidex Began 2015. Completed 5 years of therapy. Pt. had L dx mamm/US/MRI per surgeon-who recommended L breast bx. Pt. wanted second opinion and was referred to [facility]. L dx mamm/US done. Bx not done. Recommendation to repeat MRI in 6 months. Pts. last 2021. No new concerns today. Appetite: Too good. Energy level: I think it's good. I'm doing things like yard work, reading and quilting. Denies fevers or recent illness. Resp:denies cough or sob Cardiac:denies chest pain/palpitations GI:denies abd pain, occ. reflux-takes tums with relief, denies n/v, moving bowels regularly :denies dysuria/hematuria Extrem:+ b/l hand pain improved since stopping AI, chronic b/l knee pain, denies new pain Endo:hot flashes They are gone. since stopping AI Neuro:denies symptoms of neuropathy Skin:denies rashes/lesions Heme:denies bleeding The ROS is otherwise negative. Past medical history, appointments, medications, allergies reviewed. No changes. EXAM: BP 118/56 Pulse 78 Temp 36.9 ?C (98.4 ?F) Ht 159 cm (5' 2.6 ) Wt 83 kg (183 lb) LMP 01/27/2003 SpO2 97% BMI 32.83 kg/m? APPEARANCE Well appearing, alert, in no acute distress, well-hydrated, well nourished. HEART RRR with normal S1 and S2, no murmurs LUNG clear to auscultation BREAST FEMALE no mass/nodule b/l, L scar to outer/radiation changes LYMPH NODES No cervical lymphadenopathy, No supraclavicular lymphadenopathy, and No axillary lymphadenopathy. ABDOMEN bowel sounds normoactive, soft, non-tender EXTREMITIES No edema NEURO Awake, alert and oriented x 3, Normal gait, and No involuntary motions. SKIN Skin color, texture, turgor normal, no suspicious rashes or lesions RADIOLOGY: Mammogram 01/01/23: IMPRESSION: NEGATIVE There is no mammographic evidence of malignancy. A 1 year screening mammogram is recommended. ASSESSMENT/PLAN: 1. 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 - No concerning findings on exam. - Completed 5 years of arimidex therapy 2020. Tolerated fairly well except joint aches/pains. - Reviewed mammogram with pt. - Mammogram due in one year. - Follow up after above. - Pt. aware to call office with any questions/concerns. The patient indicates understanding of these issues and agrees with the plan. All documentation from previous visit of 12/14/21-Dr. Dhaliwal/myself was copied and pasted, documentation has been reviewed and edited as necessary for today's visit. Stephane Vaz APRN.[facility] 01-04-2023 History of Presen t illness Narrative Chief Complaint Patient presents with: Established Patient HPI: Li Pino is a 72 year old female who presents here today for follow up breast cancer. Per Dr. Dhaliwal's previous note: H/o arthritis. She was found to have an abnormality in the left breast on a routine screening mammogram. There was a 1-1/2 cm irregular density in the upper outer quadrant. The patient underwent an ultrasound which redemonstrated a 1.6 cm mass in the left upper outer quadrant at anterior depth. The patient underwent a core needle biopsy on 12/05/2015. The pathology demonstrated an invasive moderately differentiated ductal carcinoma, nuclear grade 2. ER >90%, strong and KS 60%, weak to moderate. HER2 quantified at 1+. She then underwent a left-sided lumpectomy with sentinel lymph node biopsy followed by completion axillary dissection on 01/03/2016. Final pathology demonstrated a single focus of invasive malignancy in the left breast measuring 1.9 cm. The overall grade was 2. Margins were negative. The closest was 0.4 mm on the medial margin. Lymphovascular invasion was identified. 2 sentinel lymph nodes removed. 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 An additional 11 lymph nodes were negative. Oncotype:Recurrence score 10 indicating the estimated risk of recurrence with the use of tamoxifen alone at 9%. Radiation: DATES OF TREATMENT: 02/20/16 to 04/04/16 Previous therapy:Arimidex Began 2015. Completed 5 years of therapy. Pt. had L dx mamm/US/MRI per surgeon-who recommended L breast bx. Pt. wanted second opinion and was referred to [facility]. L dx mamm/US done. Bx not done. Recommendation to repeat MRI in 6 months. Pts. last 2021. No new concerns today. Appetite: Too good. Energy level: I think it's good. I'm doing things like yard work, reading and quilting. Denies fevers or recent illness. Resp:denies cough or sob Cardiac:denies chest pain/palpitations GI:denies abd pain, occ. reflux-takes tums with relief, denies n/v, moving bowels regularly :denies dysuria/hematuria Extrem:+ b/l hand pain improved since stopping AI, chronic b/l knee pain, denies new pain Endo:hot flashes They are gone. since stopping AI Neuro:denies symptoms of neuropathy Skin:denies rashes/lesions Heme:denies bleeding The ROS is otherwise negative. Past medical history, appointments, medications, allergies reviewed. No changes. EXAM: BP 118/56 Pulse 78 Temp 36.9 C (98.4 F) Ht 159 cm (5' 2.6 ) Wt 83 kg (183 lb) LMP 01/27/2003 SpO2 97% BMI 32.83 kg/m APPEARANCE Well appearing, alert, in no acute distress, well-hydrated, well nourished. HEART RRR with normal S1 and S2, no murmurs LUNG clear to auscultation BREAST FEMALE no mass/nodule b/l, L scar to outer/radiation changes LYMPH NODES No cervical lymphadenopathy, No supraclavicular lymphadenopathy, and No axillary lymphadenopathy. ABDOMEN bowel sounds normoactive, soft, non-tender EXTREMITIES No edema NEURO Awake, alert and oriented x 3, Normal gait, and No involuntary motions. SKIN Skin color, texture, turgor normal, no suspicious rashes or lesions RADIOLOGY: Mammogram 01/01/23: IMPRESSION: NEGATIVE There is no mammographic evidence of malignancy. A 1 year screening mammogram is recommended. ASSESSMENT/PLAN: 1. 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 - No concerning findings on exam. - Completed 5 years of arimidex therapy 2020. Tolerated fairly well except joint aches/pains. - Reviewed mammogram with pt. - Mammogram due in one year. - Follow up after above. - Pt. aware to call office with any questions/concerns. The patient indicates understanding of these issues and agrees with the plan. All documentation from previous visit of 12/14/21-Dr. Dhaliwal/myself was copied and pasted, documentation has been reviewed and edited as necessary for today's visit. Stephane Vaz APRN.[employer] documented in this encounter [facility] 01-01-2023 Miscellaneous Notes January 02, 2023 PID: [id number] Li Pino [address] [place] [address] Dear Ms. Pino, We are pleased to inform you that the results of your recent breast imaging exam on 01/01/2023 are normal. Your mammogram demonstrates that you have dense breast tissue, which could hide abnormalities. Dense breast tissue, in and of itself, is a relatively common condition. Therefore, this information is not provided to cause undue concern; rather, it is to raise your awareness and promote discussion with your health care provider regarding the presence of dense breast tissue in addition to other risk factors. Early detection of cancer is very important. We also understand recommendations regarding breast cancer screening are controversial. Please discuss with your primary care provider which strategy is best for you and whether a mammogram is right for you. Your imaging studies and report will be kept on file at [facility] as part of your permanent medical record and are available for your continuing care. Thank you for allowing us to help in meeting your health care needs. Sincerely, Dr. Moyer Interpreting Radiologist [facility] (Normal over 40) documented in this encounter [facility] 01-01-2023 Note HNO ID: [id number] Author: Lala Mendes RT(R) Service: ? Author Type: Technologist Type: Progress Notes Filed: 01/01/2023 8:37 AM Note Text: Radiology Service Progress Note PATIENT NAME: Li Pino DATE OF SERVICE: January 01, 2023 TIME: 8:36 AM PATIENT IDENTITY VERIFICATION COMPLETED USING TWO (2) IDENTIFIERS: Name and Date of confirmed by patient verbally. FALL SCREENING: Has the patient had 2 falls in the last year or 1 fall with injury or currently using an Ambulatory Assistive Device (Walker, Cane, Wheelchair, Crutches, etc.)? No PATIENT GENDER DATA: Female. status: : No status: NO. PATIENT RELEVANT IMPLANT DATA REVIEWED: Not Applicable RADIOLOGY DEPARTMENT: Mammography PERIPHERAL IV DATA: Not applicable SIGNED BY: RT Lalo(R) January 01, 2023 8:36 AM [facility] 10-24-2022 Miscellaneous Notes Scheduled with patient 1st Attempt to call patient. Called and left patient a message to contact our office to schedule an appointment. Cherelle Patient is aware and is requesting the schedulers call her to schedule mammogram and OV. Lesvia Villanueva LPN Mammogram order in. Needs OV after above. Thank you. Stephane Vaz APRN.[employer] Patient requesting mamm orders documented in this encounter [facility] 10-10-2022 Note Patient Outreach (MAO TNAV) LI PINO ([id number]) 1950 F TXT Date Time Provider Department 10/10/22 JAYLEEN ABDUL During your visit today, we recorded the following information about you: Jayleen Abdul MA 10/10/2022 2:14 PM Signed POPULATION HEALTH NAVIGATION OUTREACH Action/ NO ANSWER [employer]ip[employer] MESSAGE SENT ANNUAL MEDICARE WELLNESS EXAM DUE AFTER 12-26-22 ADVANCE DIRECTIVE DISCUSSION due on 04/29/2022 DEPRESSION ASSESSMENT Never done MAMMOGRAM due on 12/11/2022 Patient Identified by Name and : NO Outreach Outcome/Action Unable to reach patient: Phone number not valid / voicemail full [employer] message sent Did you use a PCP flex slot to schedule this appointment? No Reason for Outreach Care Gap or Scheduling/Wellness visits Payer: Payor: MEDICARE / Plan: MEDICARE A AND B / Product Type: Medicare / Care Gap Reviewed:: Annual Wellness visit Breast Cancer screening Reminder: Reminder note to check Health Maintenance for items below Health Maintenance items due: SHINGRIX VACCINE(2 of 3) due on 05/13/2015 COVID-19 VACCINE(3 - Booster for Joce series) due on 04/29/2021 ADVANCE DIRECTIVE DISCUSSION due on 04/29/2022 DEPRESSION ASSESSMENT Never done MAMMOGRAM due on 12/11/2022 Navigation Signature: Jayleen Abdul MA October 10, 2022 10:43 AM Allergies As of Date: 10/10/2022 Noted Allergy Reaction PENICILLIN 01/12/2016 10 - Anaphylaxis SULFA (SULFONAMIDE ANTIBIOTICS) 01/12/2016 9 - Itching Date Reviewed: 12/26/2021 Reviewed by: Christiano Suazo LPN - Fully Assessed Reason for Visit: Population Health Navigation Outreach [3910] Cmt: ACO GABRIELA PCSA Prescriptions as of 10/10/2022 - Biotin 1 mg tab Take 1 tablet by mouth every other day. - naproxen sodium (ALEVE ORAL) Take by mouth twice daily. - docusate sodium (COLACE ORAL) Take by mouth. - CALCIUM CARBONATE (TUMS ORAL) Take 1-2 tablets by mouth once daily. - latanoprost (XALATAN) 0.005 % ophthalmic solution Use 1 Drop in both eyes once daily. - Cholecalciferol, Vitamin D3, 50 mcg (2,000 unit) cap Take 1 capsule by mouth once daily. - Sjhgmofe-Msodzan-Bjti-Lutein tab Take 1 tablet by mouth once daily. Problem List As Of Date 10/10/2022 Noted Resolved Breast cancer of upper-outer quadrant of left f*01/12/2016 Lymphedema of left upper extremity [I89.0] 05/14/2016 Malignant neoplasm of upper-outer quadrant of l*11/06/2016 Medicare annual wellness visit, subsequent [Z00*02/10/2019 Osteopenia, senile [M85.80] 02/10/2019 Venous insufficiency (chronic) (peripheral) [I8*03/09/2019 Elevated blood sugar [R73.9] 09/02/2020 Medication management [Z79.899] 09/02/2020 Cystocele, midline [N81.11] 09/02/2020 History of colonic polyps [Z86.010] 10/28/2020 12/19/2020 Partial rectal prolapse [K62.3] 03/14/2021 Hemorrhoids [K64.9] 03/14/2021 Class 1 obesity due to excess calories with ser*04/03/2021 Rectocele [N81.6] 04/06/2021 Incomplete uterovaginal prolapse [N81.2] 04/06/2021 Post-operative state [Z98.890] 05/12/2021 Mixed incontinence [N39.46] 05/12/2021 Advance directive discussed with patient [Z71.8*12/26/2021 Encounter Status:Closed by JAYLEEN ABDUL on 10/10/22 [facility] 10-10-2022 Note HNO ID: [id number] Author: Jayleen Abdul MA Service: ? Author Type: Tie Inspector Type: Progress Notes Filed: 10/10/2022 2:14 PM Note Text: POPULATION HEALTH NAVIGATION OUTREACH Action/FYI NO ANSWER MYCHART MESSAGE SENT ANNUAL MEDICARE WELLNESS EXAM DUE AFTER 12-26-22 ADVANCE DIRECTIVE DISCUSSION due on 04/29/2022 DEPRESSION ASSESSMENT Never done MAMMOGRAM due on 12/11/2022 Patient Identified by Name and : NO Outreach Outcome/Action Unable to reach patient: Phone number not valid / voicemail full [employer] message sent Did you use a PCP flex slot to schedule this appointment? No Reason for Outreach Care Gap or Scheduling/Wellness visits Payer: Payor: MEDICARE / Plan: MEDICARE A AND B / Product Type: Medicare / Care Gap Reviewed:: Annual Wellness visit Breast Cancer screening Reminder: Reminder note to check Health Maintenance for items below Health Maintenance items due: SHINGRIX VACCINE(2 of 3) due on 05/13/2015 COVID-19 VACCINE(3 - Booster for Joce series) due on 04/29/2021 ADVANCE DIRECTIVE DISCUSSION due on 04/29/2022 DEPRESSION ASSESSMENT Never done MAMMOGRAM due on 12/11/2022 Navigation Signature: Jayleen Abdul MA October 10, 2022 10:43 AM [facility] 10-10-2022 History of Presen t illness Narrative POPULATION HEALTH NAVIGATION OUTREACH Action/FYI NO ANSWER MYCHART MESSAGE SENT ANNUAL MEDICARE WELLNESS EXAM DUE AFTER 12-26-22 ADVANCE DIRECTIVE DISCUSSION due on 04/29/2022 DEPRESSION ASSESSMENT Never done MAMMOGRAM due on 12/11/2022 Patient Identified by Name and : NO Outreach Outcome/Action Unable to reach patient: Phone number not valid / voicemail full [employer] message sent Did you use a PCP flex slot to schedule this appointment? No Reason for Outreach Care Gap or Scheduling/Wellness visits Payer: Payor: MEDICARE / Plan: MEDICARE A AND B / Product Type: Medicare / Care Gap Reviewed:: Annual Wellness visit Breast Cancer screening Reminder: Reminder note to check Health Maintenance for items below Health Maintenance items due: SHINGRIX VACCINE(2 of 3) due on 05/13/2015 COVID-19 VACCINE(3 - Booster for Joce series) due on 04/29/2021 ADVANCE DIRECTIVE DISCUSSION due on 04/29/2022 DEPRESSION ASSESSMENT Never done MAMMOGRAM due on 12/11/2022 Navigation Signature: Jayleen Abdul MA October 10, 2022 10:43 AM documented in this encounter [facility] 01-02-2022 Miscellaneous Notes Told patient that pathology was benign. Only scar tissue found which would be consistent with the location of the previous lumpectomy. Will have patient undergo repeat left breast mammograms and ultrasound in 6 months. Patient acknowledges above. She states that the biopsy site is healing well. documented in this encounter [facility] 12-28-2021 Procedure note Procedure(s): BX BREAST W/DEVICE 1ST LESION ULTRASOUND GUID Pre-Procedure Diagnose(s): Abnormal ultrasound of breast Post-Procedure Diagnose(s): Abnormal ultrasound of breast Ultrasound guided breast needle core biopsy with vacuum assistance Indications - BIRADS 5 breast lesion Description of procedure - After informed consent was obtained, patient was brought to the Procedure Room. Appropriate time out protocol was followed. The patient was placed in the supine position. The ultrasound machine was used for identification of the lesion and facilitation of the biopsy in real time imaging. The lesion was identified in the left breast. It was at the 1 o'clock position, 4 cm from the nipple, about mid depth. The lesion was measured at about 2 cm in size. The transducer was held in the radial position. The skin was cleansed with a surgical skin preparation. The skin and subcutaneous tissues were infiltrated with 1% xylocaine. A total of 10 ml was used. A small skin corrine was made medial to the lesion with an 11 blade scalpel. The Mammotome Elite device was then positioned into the patient's breast at the lesion site. Ultrasound imaging pictures were captured. Using the vacuum suctioning of the Mammotome device, several core samples of breast tissue were obtained. This was done, simultaneously visualizing with the ultrasound transducer. Once adequate sampling was determined to be done, the Mammotome device was removed and a marker clip was placed at the biopsy site, using ultrasound transducer guidance. Hemostasis was achieved by pressure. No evidence of active bleeding was noted after pressure applied for a period of time. Steristrips were placed to reapproximate the wound edges. Sterile dressing was applied over this. Patient tolerated procedure well. Complications - none EBL - minimal documented in this encounter [facility] 12-28-2021 History of Presen t illness Narrative Patient underwent US guided needle core biopsy. She tolerated procedure well. Patient to follow up with me next week for discussion of results. UNIVERSAL PROTOCOL / SAFETY CHECKLIST Procedure to be Performed: US Guided Left Needle Core Breast Biopsy Sign In: A Moment of CARE was completed. Personnel directly involved with the procedure wore the appropriate PPE (Personal Protective Equipment). Patient/Surrogate Stated/Verified: PATIENT VERIFIED(optional for EMERGENT procedures): Patient name, Date of , Relevant allergies, and The intended procedure Time Out Communication: Intended patient and procedure match the source documents. Consent documented and matches the intended procedure. Sign Out: SIGN OUT (optional for EMERGENT procedures): All specimen containers correctly labeled. Laila Swift documented in this encounter [facility] 12-28-2021 History of Presen t illness Narrative Radiology Service Progress Note PATIENT NAME: Li Pino DATE OF SERVICE: December 28, 2021 TIME: 9:54 AM PATIENT IDENTITY VERIFICATION COMPLETED USING TWO (2) IDENTIFIERS: Name and Date of confirmed by patient verbally. FALL SCREENING: Has the patient had 2 falls in the last year or 1 fall with injury or currently using an Ambulatory Assistive Device (Walker, Cane, Wheelchair, Crutches, etc.)? No PATIENT GENDER DATA: Female. status: : No status: NO. PATIENT RELEVANT IMPLANT DATA REVIEWED: Not Applicable RADIOLOGY DEPARTMENT: Mammography PERIPHERAL IV DATA: Not applicable SIGNED BY: Gregory AlexandraNe[employer], [employer] December 28, 2021 9:54 AM documented in this encounter [facility] 12-28-2021 Instructions Laila Swift - 12/28/2021 9:10 AM EDT The following instructions are important for you related to your office visit today with the [facility] Surgeons. Instructions After OFFICE BASED BREAST BIOPSY Please do not take aspirin or other blood thinners for the next few days. After the procedure, Steri-Strips and a dressing will be placed on your small incision. The dressing may be removed in five days after the procedure. The Steri-Strips should be left in place until they fall off. If you have bleeding from the biopsy site, hold pressure with a clean gauze. If the bleeding continues, contact our office immediately. I recommend taking Advil or Tylenol for the discomfort. You should wear a comfortable but somewhat tight fitting bra. If you have significant bruising, an ice pack may improve your discomfort. Please make an appointment to return to our office in 1 weeks. If you note any additional difficulties, questions, or concerns, you should contact our office immediately @ [phone] and ask to be transferred to the General Surgery department. documented in this encounter [facility] 12-27-2021 Miscellaneous Notes noted Patient notified and voiced understanding. She indicated when she went to blood work she had just gone to the restroom and could not give a urine sample. She is stopped back by tomorrow to get that completed. Nisha Lindo MA Cholesterol levels are still elevated some but her her LDL has improved some. Continue to work on diet. A1c has improved. Thyroid is normal Thanks. Ursula Ugarte PA-C documented in this encounter [facility] 12-26-2021 History of Presen t illness Narrative Medicare Yearly Visit Medical B eligibilty date 06/27/17 Date of last exam 09/02/2020 PAST MEDICAL HISTORY Diagnosis Date Arthritis Breast cancer of upper-outer quadrant of left female breast (HCC) 01/12/2016 Cystocele, midline 09/02/2020 Elevated blood sugar 09/02/2020 History of colonic polyps 10/28/2020 Lymphedema of left upper extremity 05/14/2016 S/p mastectomy and node biopsy Malignant neoplasm of upper-outer quadrant of left breast in female, estrogen receptor positive (HCC) 11/06/2016 Medicare annual wellness visit, subsequent 02/10/2019 Medical B eligibilty date 06/27/2017 Last done 09/02/2020 Osteopenia PONV (postoperative nausea and vomiting) Venous insufficiency (chronic) (peripheral) 03/09/2019 PAST SURGICAL HISTORY Procedure Laterality Date BREAST SURGERY HX Left lumpectomy, followed by radiation and pills CARPAL TUNNEL 2013 Bilateral COLONOSCOPY 2016 repeat 5 yrs COLONOSCOPY FLX DX W/COLLJ SPEC WHEN PFRMD 12/19/2020 DILATION & CURETTAGE DX&/THER NONOBSTETRIC 1980 Dilation & curettage MASTECTOMY, PARTIAL Left 01/03/2016 lymph node bx(13) PAST SURGICAL HISTORY OF PAST SURGICAL HISTORY OF 03/2021 vaginal hysterectomy, ovaries remain TONSILLECTOMY HX denies ALLERGIES: Penicillin and Sulfa (Sulfonamide Antibiotics) Medications reviewed: Yes FAMILY HISTORY Problem Relation Age of Onset Cancer Brother age 59 Lymphoma/liver disease Colon Cancer Maternal Aunt Colon Cancer Maternal Uncle Breast Cancer Mother 57 age 60 Diabetes Father Heart Father GI Father bleeding ulcers SOCIAL HISTORY: Social History Tobacco Use Smoking status: Never Smokeless tobacco: Never Vaping Use Vaping Use: Never used Substance Use Topics Alcohol use: Yes Comment: wine </= 2/month Drug use: No Li likes to exercise by walking and swimming or swim class. She watches her diet for sodium, low fat and low cholesterol some of the time. List of current specialists seen: oncology End of Live Planning discussed including patients advanced directive wishes: Yes I am willing to follow Li's advanced directives. Depression Screening 02/09/2019 08/31/2020 12/10/2020 12/26/2021 PHQ-2 Score 0 0 1 0 Depression screening tool completed and reviewed. Based on score and interview, patient is not at risk for depression. Screening tool discussed with patient, and I recommended no further intervention at this time. PHQ-2 Score: 0 Functional Ability/Safety Screen 1. Was the patient's timed Up and Go test unsteady or longer than 30 seconds? No 2. Does the patient need help with the phone, transportation, shopping,preparing meals, housework, laundry, medications or managing money? No 3. Does your home have rugs in the hallway, lack of grab bars in the bathroom, lack of handrails on the stairs or have poor lighting? No Hearing Evaluation: within normal limits and normal PHYSICAL EXAM BP 110/76 (BP Site: Left Arm, BP Position: Sitting, BP Cuff Size: Large Adult) Pulse 72 Temp 36.3 C (97.4 F) Resp 18 Ht 158.5 cm (5' 2.4 ) Wt 82.1 kg (181 lb) LMP 01/27/2003 BMI 32.68 kg/m Alert and oriented X 3: YES Body mass index is 32.68 kg/m . Visual acuity: sees opto ASSESSMENT/PLAN: 71 year old female The following prevention plan was discussed during the office visit and provided to the patient: See below. Ursula Ugarte PA-C Chief Complaint Patient presents with: Medicare Wellness Exam HPI Li Pino is a 71 year old female who presents here today for extensive exam. Patient with hx of elevated glucose, breast cancer-seeing oncology, osteopenia, obesity, mixed incontinence, and those as below. Patient concerns today Continued knee pain GERD- symptoms related to her diet. Tums seems to help. Has also switched to smaller/more frequent meals. Weight- having trouble losing weight. Last 10 Encounter Wt Readings: Date: Wt: 12/26/2021 82.1 kg (181 lb) 12/25/2021 82.1 kg (181 lb) 12/14/2021 81.2 kg (179 lb) 09/14/2021 82.7 kg (182 lb 6.4 oz) 06/05/2021 81.6 kg (180 lb) 03/24/2021 82.6 kg (182 lb 3.2 oz) 03/14/2021 80.3 kg (177 lb) 03/03/2021 82.6 kg (182 lb 3.2 oz) 01/16/2021 82.3 kg (181 lb 6.4 oz) 12/12/2020 82.1 kg (181 lb) Past medical history, appointments, medications, allergies reviewed. Previous Medical History PAST MEDICAL HISTORY Diagnosis Date Arthritis Breast cancer of upper-outer quadrant of left female breast (HCC) 01/12/2016 Cystocele, midline 09/02/2020 Elevated blood sugar 09/02/2020 History of colonic polyps 10/28/2020 Lymphedema of left upper extremity 05/14/2016 S/p mastectomy and node biopsy Malignant neoplasm of upper-outer quadrant of left breast in female, estrogen receptor positive (HCC) 11/06/2016 Medicare annual wellness visit, subsequent 02/10/2019 Medical B eligibilty date 06/27/2017 Last done 09/02/2020 Osteopenia PONV (postoperative nausea and vomiting) Venous insufficiency (chronic) (peripheral) 03/09/2019 Previous Surgical History PAST SURGICAL HISTORY Procedure Laterality Date BREAST SURGERY HX Left lumpectomy, followed by radiation and pills CARPAL TUNNEL 2014 Bilateral COLONOSCOPY 2017 repeat 5 yrs COLONOSCOPY FLX DX W/COLLJ SPEC WHEN PFRMD 12/19/2020 DILATION & CURETTAGE DX&/THER NONOBSTETRIC 1980 Dilation & curettage MASTECTOMY, PARTIAL Left 01/03/2016 lymph node bx(13) PAST SURGICAL HISTORY OF PAST SURGICAL HISTORY OF 03/2021 vaginal hysterectomy, ovaries remain TONSILLECTOMY HX denies Family History FAMILY HISTORY Problem Relation Age of Onset Cancer Brother age 59 Lymphoma/liver disease Colon Cancer Maternal Aunt Colon Cancer Maternal Uncle Breast Cancer Mother 57 age 60 Diabetes Father Heart Father GI Father bleeding ulcers Patient Allergies ALLERGIES Allergen Reactions Penicillin Anaphylaxis Sulfa (Sulfonamide * Itching Current Medications Current Outpatient Medications on File Prior to Visit Medication Sig Biotin 1 mg tab Take 1 tablet by mouth every other day. naproxen sodium (ALEVE ORAL) Take by mouth twice daily. docusate sodium (COLACE ORAL) Take by mouth. CALCIUM CARBONATE (TUMS ORAL) Take 1-2 tablets by mouth once daily. latanoprost (XALATAN) 0.005 % ophthalmic solution Use 1 Drop in both eyes once daily. Cholecalciferol, Vitamin D3, 50 mcg (2,000 unit) cap Take 1 capsule by mouth once daily. Tqviyycm-Jiryigx-Wjqf-Lutein tab Take 1 tablet by mouth once daily. Current Facility-Administered Medications on File Prior to Visit Medication perflutren lipid microspheres 1.3 mL in NaCl (PF) 0.9% 10 mL injection (DEFINITY) sodium chloride 0.9 % (flush) 10 mL (BD POSIFLUSH) Social History Social History Tobacco Use Smoking status: Never Smokeless tobacco: Never Vaping Use Vaping Use: Never used Substance Use Topics Alcohol use: Yes Comment: wine </= 2/month Drug use: No Review of Symptoms REVIEW OF SYSTEMS GENERAL: No weight loss, malaise or fevers HEENT: No changes in hearing or vision, no nose bleeds or other nasal problems NECK: Negative for lumps, goiter, pain and significant neck swelling RESPIRATORY: Negative for cough, hemoptysis, wheezing, COPD, dyspnea or shortness of breath CARDIOVASCULAR: Negative for chest pain, leg swelling, hypertension, CHF or palpitations GI: Negative for abdominal discomfort, blood in stools or black stools, change in bowel habit, heart burn, nausea, vomiting : No history of dysuria, frequency or incontinence 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 Negative for mood disorder and recent psychosocial stressors HEMATOLOGY/LYMPHOLOGY: Negative for prolonged bleeding, bruising easily or swollen nodes ENDOCRINE: Negative for cold or heat intolerance, polyuria, polydipsia and goiter NEURO: No history of headaches, syncope, paralysis, seizures or tremors EXAM: BP 110/76 (BP Site: Left Arm, BP Position: Sitting, BP Cuff Size: Large Adult) Pulse 72 Temp 36.3 C (97.4 F) Resp 18 Ht 158.5 cm (5' 2.4 ) Wt 82.1 kg (181 lb) LMP 01/27/2003 BMI 32.68 kg/m General Appearance: Well appearing, alert, in no acute distress, well-hydrated, well nourished.. Skin: Skin color, texture, turgor normal, no suspicious rashes or lesions. Head: Normocephalic, no masses, lesions, tenderness or abnormalities. Eyes: Anicteric sclera. Pupils are equally round and reactive to light. Extraocular movements are intact. . Ears: External ears normal, R canal impacted. With irrigation b/l canals clear andTMs pearly brown. Neck: Supple, no adenopathy; thyroid symmetric, normal size, no bruits. Lungs: Lungs clear to auscultation. No wheezing, rhonchi, rales.. Heart: RRR without murmur, gallop, or rubs. No ectopy. Abdomen: Normal abdominal exam, Abdomen soft, non-tender. Bowel sounds normal. No masses, organomegaly. Extremities: No deformities, edema, skin discoloration, clubbing or cyanosis. Good capillary refill. . Musculoskeletal: No joint swelling, deformity, or tenderness. Peripheral Pulses: Normal. Neurologic: Gait normal. Reflexes normal and symmetric. Sensation grossly intact.. Health Maintenance List SHINGRIX VACCINE(2 of 3) due on 05/13/2015 ADVANCE DIRECTIVE DISCUSSION Never done COVID-19 VACCINE(3 - Booster for Joce series) due on 07/02/2021 DEPRESSION SCREENING due on 12/10/2021 INFLUENZA(1) due on 12/28/2021 MAMMOGRAM due on 12/11/2022 DIABETES SCREEN due on 03/24/2024 LIPID SCREEN due on 09/02/2025 DTAP,TDAP,TD(2 - Td or Tdap) due on 07/16/2026 COLORECTAL CANCER SCREENING due on 12/19/2030 BONE DENSITY Completed PNEUMOCOCCAL: 65+ Completed HEPATITIS C SCREENING Discontinued Data reviewed N/a ASSESSMENT/PLAN: 1. Medicare annual wellness visit, subsequent - ICD9: V70.0, ICD10: Z00.00 (primary diagnosis) - Counseled on healthy diet and regular exercise - Calcium intake with supplements or by diet of 1000 mg/day for under 50, 5545-1327 mg/day for 50+ 2. Advance directive discussed with patient - ICD9: V65.49, ICD10: Z71.89 Scanned in chart 3. Elevated blood sugar - ICD9: 790.29, ICD10: R73.9 Check: - HGB A1C - TSH BLD - URINALYSIS, WITH MICROSCOPIC 4. Malignant neoplasm of upper-outer quadrant of left breast in female, estrogen receptor positive (HCC) - ICD9: 174.4, V86.0, ICD10: C50.412, Z17.0 Continue with onco 5. Osteopenia, senile - ICD9: 733.90, ICD10: M85.80 - Reviewed the need for Calcium and Vitamin D supplements and weight bearing exercise as tolerated - COMP METABOLIC PANEL 6. Mixed incontinence - ICD9: 788.33, ICD10: N39.46 improved 7. Class 1 obesity due to excess calories with serious comorbidity and body mass index (BMI) of 32.0 to 32.9 in adult - ICD9: 278.00, V85.32, ICD10: E66.09, Z68.32 Stable - Behavioral intervention - COMP METABOLIC PANEL - TSH BLD 8. Encounter for lipid screening for cardiovascular disease - ICD9: V77.91, V81.2, ICD10: Z13.220, Z13.6 - LIPID PANEL, NONFASTING - TSH BLD - URINALYSIS, WITH MICROSCOPIC 9. GERD without esophagitis - ICD9: 530.81, ICD10: K21.9 - Discussed lifestyle modifications including losing weight, limiting caffeine, and no meals three hours before sleep - TSH BLD 10. Chronic constipation - ICD9: 564.00, ICD10: K59.09 Stable on colace - TSH BLD 11. Impacted cerumen of right ear - ICD9: 380.4, ICD10: H61.21 - Discussed ear irrigation with warm water and verbal consent given. R Ear irrigated with warm water per nursing for removal of wax. Patient tolerated well. On recheck canal clear.. Ursula Ugarte PA-C documented in this encounter [facility] 12-25-2021 History of Presen t illness Narrative Li Pino 1950 REFERRING PHYSICIAN: Isaiah Saleh MD CHIEF COMPLAINT: Consult (Left Breast) HPI: The patient is a 71 year old female presents with abnormal left breast radiographs. She has a history of left breast cancer - stage 2 - T1 N1, she had 13 lymph nodes removed, in 2016. She notes slight left upper extremity lymphedema. She denies palpable breast masses. She denies nipple discharge. Her mother of breast cancer at age 60, no ovarian cancer in family known. Her gynecological history is as follows: menarche onset at age 15, , first at age 23, breast feeding 6-9 mnths for each infant, BCP use initially at age 22 intermittently for 2-3 y 12/20/2021 US left breast There is a 2.5 cm irregular equal density mass with a spiculated margin in the left breast at 1 o'clock middle depth. No other significant masses or calcifications are seen in the breast. IMPRESSION: HIGHLY SUGGESTIVE OF MALIGNANCY - APPROPRIATE ACTION SHOULD BE TAKEN The 2.5 cm irregular equal density mass in the left breast is highly suggestive of malignancy. An ultrasound guided biopsy is recommended. PAST MEDICAL HISTORY Diagnosis Date Arthritis Breast cancer of upper-outer quadrant of left female breast (HCC) 01/12/2016 Cystocele, midline 09/02/2020 Elevated blood sugar 09/02/2020 History of colonic polyps 10/28/2020 Lymphedema of left upper extremity 05/14/2016 S/p mastectomy and node biopsy Malignant neoplasm of upper-outer quadrant of left breast in female, estrogen receptor positive (HCC) 11/06/2016 Medicare annual wellness visit, subsequent 02/10/2019 Medical B eligibilty date 06/27/2017 Last done 09/02/2020 Osteopenia PONV (postoperative nausea and vomiting) Venous insufficiency (chronic) (peripheral) 03/09/2019 PAST SURGICAL HISTORY Procedure Laterality Date BREAST SURGERY HX Left lumpectomy, followed by radiation and pills CARPAL TUNNEL 2014 Bilateral COLONOSCOPY 2017 repeat 5 yrs COLONOSCOPY FLX DX W/COLLJ SPEC WHEN PFRMD 12/19/2020 DILATION & CURETTAGE DX&/THER NONOBSTETRIC 1980 Dilation & curettage MASTECTOMY, PARTIAL Left 01/03/2016 lymph node bx(13) PAST SURGICAL HISTORY OF PAST SURGICAL HISTORY OF 03/2021 vaginal hysterectomy, ovaries remain TONSILLECTOMY HX denies Current Outpatient Medications Medication Sig Biotin 1 mg tab Take 1 tablet by mouth every other day. naproxen sodium (ALEVE ORAL) Take by mouth twice daily. docusate sodium (COLACE ORAL) Take by mouth. CALCIUM CARBONATE (TUMS ORAL) Take 1-2 tablets by mouth once daily. latanoprost (XALATAN) 0.005 % ophthalmic solution Use 1 Drop in both eyes once daily. Cholecalciferol, Vitamin D3, 50 mcg (2,000 unit) cap Take 1 capsule by mouth once daily. Zsmshjut-Lpomwmu-Ltbx-Lutein tab Take 1 tablet by mouth once daily. ALLERGIES: Penicillin and Sulfa (Sulfonamide Antibiotics) PERSONAL HISTORY: Social History Tobacco Use Smoking status: Never Smokeless tobacco: Never Vaping Use Vaping Use: Never used Substance Use Topics Alcohol use: Yes Comment: wine </= 2/month Drug use: No FAMILY HISTORY Problem Relation Age of Onset Cancer Brother age 59 Lymphoma/liver disease Colon Cancer Maternal Aunt Colon Cancer Maternal Uncle Breast Cancer Mother 57 age 60 Diabetes Father Heart Father GI Father bleeding ulcers The review of systems data was entered by the nurse and reviewed by me Nursing Notes: Laila Swift 12/25/2021 9:01 AM Signed REVIEW OF SYSTEMS: General: The patient denies fatigue, denies weight loss, denies weight gain, denies feeling hot, and denies feelings of cold. Eyes: The patient denies glaucoma, denies eye injury/surgery, wears glasses or contacts. Ear/Nose/Throat: The patient denies allergies, denies hayfever, denies ear infections, and denies bloody noses. Cardiovascular: The patient denies chest pain, denies heart disease, denies high blood pressure,denies cardiac stent, denies prior heart attack, denies irregular heart beat, denies high cholesterol, denies poor circulation, denies heart failure, other cardiac issues, denies claudication, denies cold feet, denies peripheral arterial stent. Respiratory: The patient denies tuberculosis, denies pneumonia, denies frequent cough, denies pulmonary embolism, denies shortness of breath, and denies coughing up blood. Gastrointestinal: The patient denies difficulty swallowing, NOTES acid reflux, denies ulcers, denies vomiting, denies jaundice/hepatitis, denies gallbladder problems, denies black or tarry stools, denies hemorrhoids, denies bleeding from rectum, denies diverticulitis, denies constipation, denies diarrhea, denies loss of stool control, and denies hernias. Kidney/Bladder: The patient denies kidney stones, denies urine infections, and denies bloody urine. Skin: The patient denies a history of skin cancer, denies bleeding/changing moles, and denies a history of skin rash. Neurologic: The patient denies a history of epilepsy/convulsions, denies headaches, denies head/spinal injuries, and denies stroke/TIA. Psychiatric: The patient denies psychiatric medications, denies depression, and denies voices, denies substance abuse. Endocrine: The patient denies thyroid disorders, denies diabetes, and denies hormonal problems. Hematologic: The patient denies a history of bruising, denies bleeding, and denies anemia, denies blood clots. Infections: The patient NOTES a history of measles and mumps, denies rheumatic fever, and denies sexually transmitted diseases. Musculoskeletal: The patient denies back pain/injury, denies back problems, NOTES sciatica, NOTES knee/foot trouble, NOTES arthritis, or denies gout. When was patient's last Mammogram screening? 12/20/2021 Last Colonoscopy: 12/19/2020 Laila Swift PHYSICAL EXAMINATION: General: The patient is 71 year old female, well nourished, well hydrated in no acute distress. The patient is oriented to time, place, and person. VITALS: Blood pressure 108/73, pulse 81, height 157.5 cm (5' 2 ), weight 82.1 kg (181 lb), last menstrual period 01/27/2003, SpO2 96 %. Body mass index is 33.11 kg/m . Head - Normocephalic. EOM intact with sclera clear and no icterus noted. Wearing glasses. Neck - supple with no jugular venous distention noted. Trachea is midline. No thyroid enlargement or thyroid nodules detected. No masses noted. Chest/breast - no asymmetry of breasts noted though left breast less ptotic than right breast, no suspicious skin lesions noted - healed incisional site of upper outer left breast with skin changes consistent radiation changes, no nipple discharge and both nipples everted, no breast masses noted - dense scar tissue noted of the left breast at operative site Lungs - clear to auscultation. Normal breath sounds. No rales/rhonchi/wheezing noted. No labored breathing noted, such as retractions. No cough heard. Heart - normal S1 and S2 auscultated. No rubs/clicks/murmurs noted. Regular rate. Abdomen - soft and benign. Extremities - no calf tenderness noted. No pitting edema noted. Skin - normal skin integrity. Lymph - no cervical adenopathy detected, no supraclavicular adenopathy detected, no axillary adenopathy detected Neurological - gait normal, no focal deficits noted Psych - calm and appropriate RADIOLOGIC STUDIES: As Noted Assessment IMPRESSION: abnormal left breast radiographs with history of left breast cancer PLAN: I have discussed the above with the patient. I have reviewed the breast radiographs with the patient. I have offered US guided left needle core breast biopsy. I have explained the procedure to the patient. I have counseled the patient as to the risks of the procedure, including but not limited to: infection, bleeding, injury to any blood vessels/nerves, scar tissue, wound infections, complications of anesthesia, etc. - the patient understands. The patient wishes to proceed. I have answered all questions to the patient s satisfaction and the patient has no further questions. I have confirmed and edited as necessary, the PFSH and ROS obtained by others. Consultation requested by Dr. Isaiah Saleh for an opinion regarding patient's abnormal breast radiographs. My final recommendations will be communicated back to the requesting physician by way of shared Medical record or letter to requesting physician via US mail. . Diagnoses: (R92.8) Abnormal ultrasound of breast (primary encounter diagnosis) (Z85.3) History of left breast cancer Return to Clinic: The patient will be scheduled for US guided left breast needle core biopsy in the office. Medical Decision Making: Problems: Moderate: New problem with uncertain prognosis Data: Unique test result(s) reviewed: 1 Risk: Low: Low risk from testing/treatment Medical Decision Making Level: 3 - Low Azra Meeks MD documented in this encounter [facility] 12-25-2021 Nurse Note REVIEW OF SYSTEMS: General: The patient denies fatigue, denies weight loss, denies weight gain, denies feeling hot, and denies feelings of cold. Eyes: The patient denies glaucoma, denies eye injury/surgery, wears glasses or contacts. Ear/Nose/Throat: The patient denies allergies, denies hayfever, denies ear infections, and denies bloody noses. Cardiovascular: The patient denies chest pain, denies heart disease, denies high blood pressure,denies cardiac stent, denies prior heart attack, denies irregular heart beat, denies high cholesterol, denies poor circulation, denies heart failure, other cardiac issues, denies claudication, denies cold feet, denies peripheral arterial stent. Respiratory: The patient denies tuberculosis, denies pneumonia, denies frequent cough, denies pulmonary embolism, denies shortness of breath, and denies coughing up blood. Gastrointestinal: The patient denies difficulty swallowing, NOTES acid reflux, denies ulcers, denies vomiting, denies jaundice/hepatitis, denies gallbladder problems, denies black or tarry stools, denies hemorrhoids, denies bleeding from rectum, denies diverticulitis, denies constipation, denies diarrhea, denies loss of stool control, and denies hernias. Kidney/Bladder: The patient denies kidney stones, denies urine infections, and denies bloody urine. Skin: The patient denies a history of skin cancer, denies bleeding/changing moles, and denies a history of skin rash. Neurologic: The patient denies a history of epilepsy/convulsions, denies headaches, denies head/spinal injuries, and denies stroke/TIA. Psychiatric: The patient denies psychiatric medications, denies depression, and denies voices, denies substance abuse. Endocrine: The patient denies thyroid disorders, denies diabetes, and denies hormonal problems. Hematologic: The patient denies a history of bruising, denies bleeding, and denies anemia, denies blood clots. Infections: The patient NOTES a history of measles and mumps, denies rheumatic fever, and denies sexually transmitted diseases. Musculoskeletal: The patient denies back pain/injury, denies back problems, NOTES sciatica, NOTES knee/foot trouble, NOTES arthritis, or denies gout. When was patient's last Mammogram screening? 12/20/2021 Last Colonoscopy: 12/19/2020 Laila Swift documented in this encounter [facility] 12-20-2021 History of Presen t illness Narrative Radiology Service Progress Note PATIENT NAME: Li Pino DATE OF SERVICE: December 20, 2021 TIME: 3:53 PM PATIENT IDENTITY VERIFICATION COMPLETED USING TWO (2) IDENTIFIERS: Name and Date of confirmed by patient verbally. FALL SCREENING: Has the patient had 2 falls in the last year or 1 fall with injury or currently using an Ambulatory Assistive Device (Walker, Cane, Wheelchair, Crutches, etc.)? No PATIENT GENDER DATA: Female. status: : No status: N/A PATIENT RELEVANT IMPLANT DATA REVIEWED: Not Applicable RADIOLOGY DEPARTMENT: Ultrasound PERIPHERAL IV DATA: Not applicable SIGNED BY: Sonya Barroso RDMS RVT December 20, 2021 3:53 PM documented in this encounter [facility] 12-14-2021 History of Presen t illness Narrative Chief Complaint Patient presents with: Established Patient HPI: Li Pino is a 71 year old female who presents here today for follow up breast cancer. Per Dr. Dhaliwal's previous note: H/o arthritis. She was found to have an abnormality in the left breast on a routine screening mammogram. There was a 1-1/2 cm irregular density in the upper outer quadrant. The patient underwent an ultrasound which redemonstrated a 1.6 cm mass in the left upper outer quadrant at anterior depth. The patient underwent a core needle biopsy on 12/05/2015. The pathology demonstrated an invasive moderately differentiated ductal carcinoma, nuclear grade 2. ER >90%, strong and KS 60%, weak to moderate. HER2 quantified at 1+. She then underwent a left-sided lumpectomy with sentinel lymph node biopsy followed by completion axillary dissection on 01/03/2016. Final pathology demonstrated a single focus of invasive malignancy in the left breast measuring 1.9 cm. The overall grade was 2. Margins were negative. The closest was 0.4 mm on the medial margin. Lymphovascular invasion was identified. 2 sentinel lymph nodes removed. 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 An additional 11 lymph nodes were negative. Oncotype:Recurrence score 10 indicating the estimated risk of recurrence with the use of tamoxifen alone at 9%. Radiation: DATES OF TREATMENT: 02/20/16 to 04/04/16 Previous therapy:Arimidex Began 2015. Completed 5 years of therapy. Pt. had L dx mamm/US/MRI per surgeon-who recommended L breast bx. Pt. wanted second opinion and was referred to [facility]. L dx mamm/US done. Bx not done. Recommendation to repeat MRI in 6 months. No new concerns today. Appetite: Too good. Energy level: I think it's good. Denies fevers. Resp:denies cough or sob Cardiac:denies chest pain/palpitations GI:denies abd pain, occ. reflux-takes tums with relief, denies n/v, moving bowels regularly :denies dysuria/hematuria Extrem:+ b/l hand pain improved since stopping AI, chronic b/l knee pain, denies pain elsewhere Endo:hot flashes They are pretty much gone. since stopping AI Neuro:denies symptoms of neuropathy Skin:denies rashes/lesions Heme:denies bleeding The ROS is otherwise negative. Past medical history, appointments, medications, allergies reviewed. No changes. EXAM: BP 107/74 Pulse 81 Temp 36.8 C (98.2 F) Ht 159.7 cm (5' 2.89 ) Wt 81.2 kg (179 lb) LMP 01/27/2003 SpO2 98% BMI 31.82 kg/m APPEARANCE Well appearing, alert, in no acute distress, well-hydrated, well nourished. HEART RRR with normal S1 and S2, no murmurs LUNG clear to auscultation BREAST FEMALE no mass/nodule b/l, L scar to outer/radiation changes LYMPH NODES No cervical lymphadenopathy, No supraclavicular lymphadenopathy, and No axillary lymphadenopathy. ABDOMEN bowel sounds normoactive, soft, non-tender, non-distended, without organomegaly or palpable masses, no tenderness to palpation EXTREMITIES No edema NEURO Awake, alert and oriented x 3, Normal gait, and No involuntary motions. SKIN Skin color, texture, turgor normal, no suspicious rashes or lesions RADIOLOGY: Mammogram 12/11/21: IMPRESSION: INCOMPLETE: NEEDS ADDITIONAL IMAGING EVALUATION The asymmetry in the left breast is indeterminate. Additional views are recommended. ASSESSMENT/PLAN: 1. Malignant neoplasm of upper-outer quadrant of left breast in female, estrogen receptor positive (HCC) - ICD9: 174.4, V86.0, ICD10: C50.412, Z17.0 pT1 (1.9 cm; grade 2; LVI+) pN1a MX ER/KS positive HER2 negative stage IIA invasive ductal carcinoma the left breast. - No concerning findings on exam. - Completed 5 years of arimidex therapy 2020. Tolerated fairly well except joint aches/pains. - Reviewed mammogram with pt. - L dx mamm/US soon. - Needs follow up with PCP. - Follow up pending above. - Pt. aware to call office with any questions/concerns. The patient indicates understanding of these issues and agrees with the plan. All documentation from previous visit of 12/12/20-Dr. Dhaliwal/myself was copied and pasted, documentation has been reviewed and edited as necessary for today's visit. Stephane Vaz APRN.HANH documented in this encounter [facility] 12-11-2021 History of Presen t illness Narrative Radiology Service Progress Note PATIENT NAME: Li Pino DATE OF SERVICE: December 11, 2021 TIME: 8:26 AM PATIENT IDENTITY VERIFICATION COMPLETED USING TWO (2) IDENTIFIERS: Name and Date of confirmed by patient verbally. FALL SCREENING: Has the patient had 2 falls in the last year or 1 fall with injury or currently using an Ambulatory Assistive Device (Walker, Cane, Wheelchair, Crutches, etc.)? No PATIENT GENDER DATA: Female. status: : No status: NO. PATIENT RELEVANT IMPLANT DATA REVIEWED: Not Applicable RADIOLOGY DEPARTMENT: Mammography PERIPHERAL IV DATA: Not applicable SIGNED BY: Tessa Alexandra December 11, 2021 8:26 AM documented in this encounter [facility] 09-14-2021 History of Presen t illness Narrative Images from the original note were not included. Subjective patient came in with complaints of possible splinter in her right thumb. Patient said it happened a month ago and she though she got it all. Now it is a hard bump that gets irritated on and off. Sometimes she is able to squeeze pus out of it. The history is provided by the patient. No operating room rn was used. Review of Systems Constitutional: Negative. Skin: Negative. Objective Physical Exam Constitutional: Appearance: Normal appearance. Pulmonary: Effort: Pulmonary effort is normal. Musculoskeletal: Hands: Comments: Small 1/2 mm size hard flesh colors area with dark center noted. Neurological: Mental Status: She is alert. PAST MEDICAL HISTORY Diagnosis Date Arthritis Breast cancer of upper-outer quadrant of left female breast (HCC) 01/12/2016 Cystocele, midline 09/02/2020 Elevated blood sugar 09/02/2020 History of colonic polyps 10/28/2020 Lymphedema of left upper extremity 05/14/2016 S/p mastectomy and node biopsy Malignant neoplasm of upper-outer quadrant of left breast in female, estrogen receptor positive (HCC) 11/06/2016 Medicare annual wellness visit, subsequent 02/10/2019 Medical B eligibilty date 06/27/2017 Last done 09/02/2020 Osteopenia PONV (postoperative nausea and vomiting) Venous insufficiency (chronic) (peripheral) 03/09/2019 PAST SURGICAL HISTORY Procedure Laterality Date BREAST SURGERY HX Left lumpectomy, followed by radiation and pills CARPAL TUNNEL 2014 Bilateral COLONOSCOPY 2016 repeat 5 yrs COLONOSCOPY FLX DX W/COLLJ SPEC WHEN PFRMD 12/19/2020 DILATION & CURETTAGE DX&/THER NONOBSTETRIC 1980 Dilation & curettage MASTECTOMY, PARTIAL Left 01/03/2016 lymph node bx(13) PAST SURGICAL HISTORY OF PAST SURGICAL HISTORY OF 03/2021 vaginal hysterectomy, ovaries remain TONSILLECTOMY HX denies ALLERGIES Penicillin and Sulfa (Sulfonamide Antibiotics) MEDICATIONS docusate sodium (COLACE ORAL) Take by mouth. CALCIUM CARBONATE (TUMS ORAL) Take 1-2 tablets by mouth once daily. latanoprost (XALATAN) 0.005 % ophthalmic solution Use 1 Drop in both eyes once daily. Jjnzmvka-Gtnilzv-Fwvi-Lutein (CENTRUM SILVER ULTRA WOMEN'S) tab Take 1 tablet by mouth once daily. ibuprofen (MOTRIN) 600 mg tablet Take 1 tablet by mouth every 6 hours. acetaminophen (TYLENOL) 325 mg tablet Take 2 tablets by mouth every 6 hours. oxyCODONE IR (ROXICODONE) 5 mg immediate release tablet Take 1 tablet by mouth every 8 hours as needed for pain. Cholecalciferol, Vitamin D3, (VITAMIN D-3) 2,000 unit cap Take 1 capsule by mouth once daily. FAMILY HISTORY Problem Relation Age of Onset Cancer Brother age 59 Lymphoma/liver disease Colon Cancer Maternal Aunt Colon Cancer Maternal Uncle Breast Cancer Mother 57 age 60 Diabetes Father Heart Father GI Father bleeding ulcers Social History Tobacco Use Smoking status: Never Smoker Smokeless tobacco: Never Used Vaping Use Vaping Use: Never used Substance Use Topics Alcohol use: Yes Comment: wine </= 2/month Drug use: No ASSESSMENT/PLAN: 1. Foreign body of right hand, initial encounter - ICD9: 914.6, ICD10: S60.551A At this time she does not want a surgery consult she wants to go to her PCP. Myra Lindo APRN.CNP documented in this encounter [facility] 04-06-2021 Note HNO ID: [id number] Author: Jane Restrepo APRN.CRNA Service: Anesthesiology Author Type: Nurse Licensed Veterinary Technician Type: Anesthesia Procedure Notes Filed: 04/06/2021 11:55 AM Note Text: ANESTHESIOLOGY PROCEDURE NOTE Airway General Information Procedure Start Time/Medication Administration: 04/06/2021 11:43 AM Patient location during procedure: OR Timeout Performed Pre-procedure: timeout performed Consent Obtained: Yes Patient identity confirmed: arm band and patient Staffing SURVEY DIRECTOR: Jane Restrepo APRN.CRNA Indications and Patient Condition Preoxygenated: yes Patient position: sniffing Indications for airway management: anesthesia anesthesia circuit Method: asleep Final Airway Details Final airway type: endotracheal airway Final Endotracheal Airway: ETT Cuffed: yes Successful intubation technique: direct laryngoscopy Endotracheal tube insertion site: oral Blade: Elsa Blade size: #3 ETT size (mm): 7.0 Placement verified by: chest auscultation and capnometry Cormack-Lehane Classification: grade I - full view of glottis Number of attempts at approach: 1 SIGNATURE: Jane Restrepo APRN.SURVEY DIRECTOR PATIENT NAME: Li Pino DATE: April 06, 2021 TIME: 11:55 AM CSN: [id number] [facility] documented as of this encounter (statuses as of 09/14/2021) [facility]21 History of Past illness Narrative* Problem Noted Date Resolved Date History of colonic polyps 10/28/20202020 documented as of this encounter (statuses as of 11/26/2021) [address]02-2021 History of Past illness Narrative* Problem Noted Date Resolved Date History of colonic polyps 10/28/20202020 documented as of this encounter (statuses as of 12/12/2021) [address]-2021 History of Past illness Narrative* Problem Noted Date Resolved Date History of colonic polyps 10/28/20202020 documented as of this encounter (statuses as of 12/14/2021) [address]02-2021 History of Past illness Narrative* Problem Noted Date Resolved Date History of colonic polyps 10/28/20202020 documented as of this encounter (statuses as of 12/21/2021) [address]02-2021 History of Past illness Narrative* Problem Noted Date Resolved Date History of colonic polyps 10/28/20202020 documented as of this encounter (statuses as of 12/26/2021) [address]-2021 History of Past illness Narrative* Problem Noted Date Resolved Date History of colonic polyps 10/28/20202020 documented as of this encounter (statuses as of 12/27/2021) [facility] History of Past illness Narrative* Problem Noted Date Resolved Date History of colonic polyps 10/28/20202020 documented as of this encounter (statuses as of 12/27/2021) [address]-2021 History of Past illness Narrative* Problem Noted Date Resolved Date History of colonic polyps 10/28/20202020 documented as of this encounter (statuses as of 12/29/2021) [address]-2021 History of Past illness Narrative* Problem Noted Date Resolved Date History of colonic polyps 10/28/20202020 documented as of this encounter (statuses as of 12/31/2021) [address]-2021 History of Past illness Narrative* Problem Noted Date Resolved Date History of colonic polyps 10/28/20202020 documented as of this encounter (statuses as of 01/02/2022) [address]-2021 History of Past illness Narrative* Problem Noted Date Resolved Date History of colonic polyps 10/28/20202020 documented as of this encounter (statuses as of 01/08/2022) [facility] History of Past illness Narrative* Problem Noted Date Resolved Date History of colonic polyps 10/28/20202020 documented as of this encounter (statuses as of 10/11/2022) [facility] History of Past illness Narrative* Problem Noted Date Resolved Date History of colonic polyps 10/28/20202020 documented as of this encounter (statuses as of 10/25/2022) [facility] History of Past illness Narrative* Problem Noted Date Diagnosed Date Resolved Date History of colonic polyps 10/28/2020 documented as of this encounter (statuses as of 01/03/2023) [facility] History of Past illness Narrative* Problem Noted Date Diagnosed Date Resolved Date History of colonic polyps 10/28/2020 documented as of this encounter (statuses as of 01/04/2023) [facility] History of Past illness Narrative* Problem Noted Date Diagnosed Date Resolved Date History of colonic polyps 10/28/2020 documented as of this encounter (statuses as of 03/19/2023) [facility] Foreign body of right hand, initial encounter- [facility] Diagnosis Malignant neoplasm of upper-outer quadrant of left breast in female, estrogen receptor positive (HCC) Encounter for screening mammogram for high-risk patient [facility] Malignant neoplasm of upper-outer quadrant of left breast in female, estrogen receptor positive (HCC)- Primary [facility] Diagnosis Medicare annual wellness visit, subsequent- Primary Routine general medical examination at a health care facility Advance directive discussed with patient Other specified counseling Elevated blood sugar Other abnormal glucose Malignant neoplasm of upper-outer quadrant of left breast in female, estrogen receptor positive (HCC) Osteopenia, senile Disorder of bone and cartilage, unspecified Mixed incontinence Mixed incontinence urge and stress (male)(female) Class 1 obesity due to excess calories with serious comorbidity and body mass index (BMI) of 32.0 to 32.9 in adult Encounter for lipid screening for cardiovascular disease Screening for lipoid disorders GERD without esophagitis Esophageal reflux Chronic constipation Unspecified constipation Impacted cerumen of right ear Impacted cerumen documented in this encounter [facility] note* Diagnosis Abnormal ultrasound of breast- Primary Other (abnormal) findings on radiological examination of breast History of left breast cancer documented in this encounter [facility] note* Diagnosis Abnormal ultrasound of breast Other (abnormal) findings on radiological examination of breast documented in this encounter [facility] note* Diagnosis Abnormal ultrasound of breast- Primary Other (abnormal) findings on radiological examination of breast documented in this encounter [facility] note* Diagnosis Abnormal mammogram- Primary Abnormal mammogram, unspecified documented in this encounter [facility] note* Diagnosis Malignant neoplasm of upper-outer quadrant of left breast in female, estrogen receptor positive (HCC)- Primary Encounter for screening mammogram for high-risk patient documented in this encounter [facility] note* Diagnosis Personal history of breast cancer- Primary Personal history of malignant neoplasm of breast Encounter for screening mammogram for high-risk patient documented in this encounter [facility] note* Diagnosis Elevated blood sugar- Primary Other abnormal glucose Encounter for lipid screening for cardiovascular disease Screening for lipoid disorders Medication management Encounter for long-term (current) use of other medications documented in this encounter [facility] for referral (narrative)* Diagnostic Procedure Only (Routine) - Closed Specialty Diagnoses / Procedures Referred By Lauren t Referred To Contact [facility] Diagnoses Malignant neoplasm of upper-outer quadrant of left breast in female, estrogen receptor positive (HCC) Encounter for screening mammogram for high-risk patient Procedures MAVERICK SCREENING W LOIDA SCREENING BREAST DGTL LOIDA UNI/BILAT ADD ON SCREENING MAMMOGRAPHY BI 2-VIEW BREAST INC Stephane Pickard, DOMINGO.POCKET CREASER [address] [place] [address] [facility] [address] [place] [address] Referral ID Status Reason Start Date Expiration Date V isits Requested Visits Authorized [id number] Closed Auto-Generate d Referral 12/12/2020 01/11/2022 1 1 T [facility] for referral (narrative)* Diagnostic Procedure Only (Routine) - Closed Specialty Diagnoses / Procedures Referred By Contac t Referred To Contact [facility] Diagnoses Abnormal ultrasound of breast Procedures MAVERICK DIAGNOSTIC LT DIAGNOSTIC MAMMOGRAPHY COMPUTER-AIDED DETCJ Azra Calabrese MD [address] [place] [address] [facility] [address] [place] [address] Referral ID Status Reason Start Date Expiration Date V isits Requested Visits Authorized [id number] Closed Auto-Generate d Referral 12/28/2021 01/27/2023 1 1 T [facility] for referral (narrative)* Diagnostic Procedure Only (Routine) - Closed Specialty Diagnoses / Procedures Referred By Contac t Referred To Contact [facility] Diagnoses Abnormal ultrasound of breast Procedures MAVERICK DIAGNOSTIC LT DIAGNOSTIC MAMMOGRAPHY COMPUTER-AIDED DETCJ Azra Calabrese MD [address] [place] [address] [facility] [address] [place] [address] Referral ID Status Reason Start Date Expiration Date V isits Requested Visits Authorized [id number] Closed Auto-Generate d Referral 12/28/2021 01/27/2023 1 1 T [facility] for referral (narrative)* Diagnostic Procedure Only (Routine) - Pending Review Specialty Diagnoses / Procedures Referred By Contac t Referred To Contact [facility] Diagnoses Abnormal mammogram Procedures US BREAST LTD LT US BREAST UNI REAL TIME WITH IMAGE LIMITED Azra Meeks MD [address] [place] [address] [facility] [address] [place] [address] Referral ID Status Reason Start Date Expiration Date Visits Requested Visits Authorized [id number] Pending Review Auto-Generat ed Referral 05/30/2022 02/01/2023 1 1 * Diagnostic Procedure Only (Routine) - Pending Review Specialty Diagnoses / Procedures Referred By Contac t Referred To Contact [facility] Diagnoses Abnormal mammogram Procedures MAVERICK DIAGNOSTIC LT DIAGNOSTIC MAMMOGRAPHY COMPUTER-AIDED DETCJ [facility] Azra Meeks MD [address] [place] [address] [facility] [address] [place] [address] Referral ID Status Reason Start Date Expiration Date Visits Requested Visits Authorized [id number] Pending Review Auto-Generat ed Referral 05/30/2022 02/01/2023 1 1 [facility] for referral (narrative)* Diagnostic Procedure Only (Routine) - Authorized Specialty Diagnoses / Procedures Referred By Contac t Referred To Contact [facility] Diagnoses Malignant neoplasm of upper-outer quadrant of left breast in female, estrogen receptor positive (HCC) Encounter for screening mammogram for high-risk patient Procedures MAVERICK SCREENING W LOIDA SCREENING DIGITAL BREAST TOMOSYNTHESIS BI SCREENING MAMMOGRAPHY BI 2-VIEW BREAST INC Stephane Pickard APRN.POCKET CREASER [address] [place] [address] [facility] [address] [place] [address] Referral ID Status Reason Start Date Expiration Date Visits Requested Visits Authorized [id number] Authorized Auto-Generat ed Referral 10/23/2022 11/22/2023 1 [facility] Diagnostic Procedure Only (Routine) - Authorized Specialty Diagnoses / Procedures Referred By Lauren t Referred To Contact [facility] Diagnoses Personal history of breast cancer Encounter for screening mammogram for high-risk patient Procedures MAVERICK SCREENING W LOIDA SCREENING DIGITAL BREAST TOMOSYNTHESIS BI SCREENING MAMMOGRAPHY BI 2-VIEW BREAST INC Stephane Pickard APRN.POCKET CREASER [address] [place] [address] [facility] [address] [place] [address] Referral ID Status Reason Start Date Expiration Date Visits Requested Visits Authorized [id number] Authorized Auto-Generat ed Referral 01/04/2023 02/03/2024 1 1 [facility] for visit Narrative* Diagnostic Procedure Only (Routine) - Closed Specialty Diagnoses / Procedures Referred By Lauren patterson Referred To Contact [facility] Diagnoses Malignant neoplasm of upper-outer quadrant of left breast in female, estrogen receptor positive (HCC) Encounter for screening mammogram for high-risk patient Procedures MAVERICK SCREENING W LOIDA SCREENING BREAST DGTL LOIDA UNI/BILAT ADD ON SCREENING MAMMOGRAPHY BI 2-VIEW BREAST INC Stephane Pickard APRN.CNP [address] [place] [address] [facility] [address] [place] [address] Referral ID Status Reason Start Date Expiration Date V isits Requested Visits Authorized [id number] Closed Auto-Generate d Referral 12/12/2020 01/11/2022 1 1 [facility] for visit Narrative* Diagnostic Procedure Only (Routine) - Closed Specialty Diagnoses / Procedures Referred By Lauren patterson Referred To Contact [facility] Diagnoses Abnormal ultrasound of breast Procedures MAVERICK DIAGNOSTIC LT DIAGNOSTIC MAMMOGRAPHY COMPUTER-AIDED DETCJ Azra Calabrese MD [address] [place] [address] [facility] [address] [place] [address] Referral ID Status Reason Start Date Expiration Date V isits Requested Visits Authorized [id number] Closed Auto-Generate d Referral 12/28/2021 01/27/2023 1 1 [facility] Summary Purpose Family History No Family History Records FoundNo Family History Records FoundNo Family History Records Found Advance Directives No Advanced Directives Records FoundDocuments on File Type Date Recorded Patient Environmental Health Technician Expl anation Advance Directive(s) 04/06/2021 9:55 AM Ri anned 04-06-2021 Advance Directive(s) 04/06/2021 9:55 AM Advance Directive(s) 03/24/2021 12:49 PM Advance Directive(s) 12/19/2020 7:40 AM Documents on File Type Date Recorded Patient Environmental Health Technician Expl anation Advance Directive(s) 04/06/2021 9:55 AM Documents on File Type Date Recorded Patient Environmental Health Technician Expl anation Advance Directive(s) 04/06/2021 9:55 AM Additional Source Comments INFORMATION SOURCE (unrecogn ized section and content) DATE CREATED AUTHOR AUTHOR'S ORGANIZ ATION 04/12/2021 [facility] DATE CREATED AUTHOR AUTHOR'S ORGANIZ ATION 05/20/2023 [facility] Source Comments (unrecognize d section and content) In the event this informatio n is protected by the Federal Confidentiality of Alcohol and Drug Abuse Patient Records regulations: The Federal rules restrict any use of the information to criminally investigate or prosecute any alcohol or drug abuse patient.[facility] the event this information is protected by the Federal Confidentiality of Alcohol and Drug Abuse Patient Records regulations: The Federal rules restrict any use of the information to criminally investigate or prosecute any alcohol or drug abuse patient.[facility] the event this information is protected by the Federal Confidentiality of Alcohol and Drug Abuse Patient Records regulations: The Federal rules restrict any use of the information to criminally investigate or prosecute any alcohol or drug abuse patient.[facility] the event this information is protected by the Federal Confidentiality of Alcohol and Drug Abuse Patient Records regulations: The Federal rules restrict any use of the information to criminally investigate or prosecute any alcohol or drug abuse patient.[facility] the event this information is protected by the Federal Confidentiality of Alcohol and Drug Abuse Patient Records regulations: The Federal rules restrict any use of the information to criminally investigate or prosecute any alcohol or drug abuse patient.[facility] the event this information is protected by the Federal Confidentiality of Alcohol and Drug Abuse Patient Records regulations: The Federal rules restrict any use of the information to criminally investigate or prosecute any alcohol or drug abuse patient.[facility] the event this information is protected by the Federal Confidentiality of Alcohol and Drug Abuse Patient Records regulations: The Federal rules restrict any use of the information to criminally investigate or prosecute any alcohol or drug abuse patient.[facility] the event this information is protected by the Federal Confidentiality of Alcohol and Drug Abuse Patient Records regulations: The Federal rules restrict any use of the information to criminally investigate or prosecute any alcohol or drug abuse patient.[facility] the event this information is protected by the Federal Confidentiality of Alcohol and Drug Abuse Patient Records regulations: The Federal rules restrict any use of the information to criminally investigate or prosecute any alcohol or drug abuse patient.[facility] the event this information is protected by the Federal Confidentiality of Alcohol and Drug Abuse Patient Records regulations: The Federal rules restrict any use of the information to criminally investigate or prosecute any alcohol or drug abuse patient.[facility] the event this information is protected by the Federal Confidentiality of Alcohol and Drug Abuse Patient Records regulations: The Federal rules restrict any use of the information to criminally investigate or prosecute any alcohol or drug abuse patient.[facility] the event this information is protected by the Federal Confidentiality of Alcohol and Drug Abuse Patient Records regulations: The Federal rules restrict any use of the information to criminally investigate or prosecute any alcohol or drug abuse patient.[facility] the event this information is protected by the Federal Confidentiality of Alcohol and Drug Abuse Patient Records regulations: The Federal rules restrict any use of the information to criminally investigate or prosecute any alcohol or drug abuse patient.[facility] the event this information is protected by the Federal Confidentiality of Alcohol and Drug Abuse Patient Records regulations: The Federal rules restrict any use of the information to criminally investigate or prosecute any alcohol or drug abuse patient.[facility] the event this information is protected by the Federal Confidentiality of Alcohol and Drug Abuse Patient Records regulations: The Federal rules restrict any use of the information to criminally investigate or prosecute any alcohol or drug abuse patient.[facility] the event this information is protected by the Federal Confidentiality of Alcohol and Drug Abuse Patient Records regulations: The Federal rules restrict any use of the information to criminally investigate or prosecute any alcohol or drug abuse patient.[facility] the event this information is protected by the Federal Confidentiality of Alcohol and Drug Abuse Patient Records regulations: The Federal rules restrict any use of the information to criminally investigate or prosecute any alcohol or drug abuse patient.[facility] Reason for Visit (unrecogniz ed section and content) Reason Comments Established Patient Reason Comments Radiology US Reason Comments Medicare Wellness Exam Reason Comments Consult Left Breast Reason Comments Results Reason Comments Results Reason Onset Date Comments Population Health Navigation Outreach 10/10/2022 [facility] [place] [facility] Reason Comments Orders Reason Comments Established Patient Care Teams (unrecognized sec tion and content) Head Start Assistant Teacher Relationship Specialty Start Date End Date Isaiah Saleh MD [address] [facility] [place] [address] PCP - General Family Practice 02/10/19 Juan Lopez MD, [address] [place] [address] Physician Radiation Oncology 01/30/16 Head Start Assistant Teacher Relationship Specialty Start Date End Date Isaiah Saleh MD [address] [facility] [place] [address] PCP - General Family Practice 02/10/19 Juan Lopez MD, [address] [place] [address] Physician Radiation Oncology 01/30/16 Head Start Assistant Teacher Relationship Specialty Start Date End Date Isaiah Saleh MD [address] [facility] [place] [address] PCP - General Family Practice 02/10/19 Juan Lopez MD, [address] [place] [address] Physician Radiation Oncology 01/30/16 Head Start Assistant Teacher Relationship Specialty Start Date End Date Isaiah Saleh MD [address] [facility] [place] [address] PCP - General Family Practice 02/10/19 Juan Lopez MD, [address] [place] [address] Physician Radiation Oncology 01/30/16 Head Start Assistant Teacher Relationship Specialty Start Date End Date Isaiah Saleh MD [address] [facility] [place] [address] PCP - General Family Practice 02/10/19 Juan Lopez MD, [address] [place] [address] Physician Radiation Oncology 01/30/16 Head Start Assistant Teacher Relationship Specialty Start Date End Date Isaiah Saleh MD [address] [facility] [place] [address] PCP - General Family Practice 02/10/19 Juan Lopez MD, [address] [place] [address] Physician Radiation Oncology 01/30/16 Head Start Assistant Teacher Relationship Specialty Start Date End Date Isaiah Saleh MD [address] [facility] [place] [address] PCP - General Family Practice 02/10/19 Juan Lopez MD, [address] [place] [address] Physician Radiation Oncology 01/30/16 Head Start Assistant Teacher Relationship Specialty Start Date End Date Isaiah Saleh MD [address] [facility] [place] [address] PCP - General Family Practice 02/10/19 Juan Lopez MD, [address] [facility] [place] [address] Physician Radiation Oncology 01/30/16 Head Start Assistant Teacher Relationship Specialty Start Date End Date Isaiah Saleh MD [address] [facility] [place] [address] PCP - General Family Practice 02/10/19 Juan Lopez MD, [address] [place] [address] Physician Radiation Oncology 01/30/16 Head Start Assistant Teacher Relationship Specialty Start Date End Date Isaiah Saleh MD [address] [facility] [place] [address] PCP - General Family Practice 02/10/19 Juan Lopez MD, [address] [place] [place] [address] Physician Radiation Oncology 01/30/16 Head Start Assistant Teacher Relationship Specialty Start Date End Date Isaiah Saleh MD [address] [facility] [place] [address] PCP - General Family Medicine 02/10/19 Juan Lopez MD, [address] [place] [address] Physician Radiation Oncology 01/30/16 Head Start Assistant Teacher Relationship Specialty Start Date End Date Isaiah Saleh MD [address] [facility] [place] [address] PCP - General Family Medicine 02/10/19 Juan Lopez MD, [address] [place] [address] Physician Radiation Oncology 01/30/16 Head Start Assistant Teacher Relationship Specialty Start Date End Date Isaiah Saleh MD [address] [facility] [place] [address] PCP - General Family Medicine 02/10/19 Juan Lopez MD, [address] [place] [address] Physician Radiation Oncology 01/30/16 Head Start Assistant Teacher Relationship Specialty Start Date End Date Isaiah Saleh MD [address] [facility] [place] [address] PCP - General Family Medicine 02/10/19 Juan Lopez MD, MD [address] [place] [address] Physician Radiation Oncology 01/30/16 Head Start Assistant Teacher Relationship Specialty Start Date End Date Isaiah Saleh MD [address] [place], [place] [id number] PCP - General Family Medicine 02/10/19 Juan Lopez MD, [address] [place] [address] Physician Radiation Oncology 01/30/16 FOR RECORDS PERTAINING TO PATIENTS WHO ARE OR HAVE BEEN ENROLLED IN A CHEMICAL DEPENDENCY/SUBSTANCEABUSE PROGRAM, SOME INFORMATION MAY BE OMITTED. This clinical summary was aggregated from multiple sources. Caution should be exercised in using it in the provision of clinical care. This summary normalizes information from multiple sources, and as a consequence, information in this document may materially change the coding, format and clinical context of patient data. In addition, data may be omitted in some cases. CLINICAL DECISIONS SHOULD BE BASED ON THE PRIMARY CLINICAL RECORDS. [employer] provides no warranty or guarantee of the accuracy or completeness of information in this document.
[2023-07-08 08:24] LABS: Absolute Lymphocyte Count 1.61 X10^3/uL (0.83-4.51); Absolute Neutrophil Count 3.5 X10^3/uL (2.0-7.7); Basophil# 0.05 X10^3/uL; Basophil% 0.8 % (0-1); Eosinophil# 0.17 X10^3/uL; Eosinophils% 2.9 % (0-5); Hematocrit 46.8 % (37-47); Hemoglobin 14.5 g/dL (12.0-15.0); Lymphocyte # 1.61 X10^3/ul (0.83-4.51); Lymphocyte % 27.2 % (19-41); Mean Corpuscular Hgb 29.1 pg (27.0-32.0); Mean Corpuscular Volume 93.8 fL (81-99); Mean Platelet Vol. 8.9 fl (6.2-12.0); Monocyte# 0.58 X10^3/uL; Monocyte% 9.8 % (0-10); NRBC Flagged by Analyzer 0 % (0-5); Neutrophil # 3.49 X10^3/uL (2.7-7.7); Neutrophil % 59.1 % (47-70); Platelet Count 390 K/mm3 (150-450); RBC Distribution Width CV 13.1 % (11.6-14.6); Red Blood Count 4.99 M/mm3 (4.2-5.4); White Blood Count 5.9 K/mm3 (4.4-11.0)
[2023-07-08 08:44] LABS: Albumin, Serum 3.6 g/dL (3.2-5.0); Anion Gap 3 (5-15); BUN 20 mg/dL (7-18); BUN/Creat Ratio 26.2 RATIO (10-20); Calcium,Total 9.7 mg/dL (8.5-10.1); Chloride 106 mmol/L (98-107); Creatinine, Serum 0.76 mg/dL (0.55-1.02); EST Glomerular Filtration Rate 80 mL/min (>60); Est Glom Filt Rate - Afr Amer 96 mL/min (>60); Glucose 110 mg/dL (74-106); Potassium 3.9 mmol/L (3.5-5.1); Sodium Level 142 mmol/L (136-145)
== END | disposition home or self-care (01) ==
LOC: CT 07:31
PROVIDERS: PCP Family Medicine; Referring Provider Specialist; Visit Provider Specialist
DX: Z01.818 Encounter for other preprocedural examination (principal); M21.161 Varus deformity, not elsewhere classified, right knee; M17.11 Unilateral primary osteoarthritis, right knee; M25.561 Pain in right knee; Z01.810 Encounter for preprocedural cardiovascular examination
CPT/HCPCS: 36415; 73700; 80048; 82040; 85025; 93005

== ENCOUNTER → 2024-11-13 | Outpatient (CLI) | payer MEDICARE, OTHER, SELFPAY ==
--- OUTSIDE RECORDS SUMMARY | 2024-11-13 07:34 | XMS RPT_ITS | CCD ---
Author Organization [facility] CliniSywa Care Team Providers Care Rolled Glass Crosscutter Name Role Phone John SHINE MD, Juan Unavailable [phone] Gerardo Saleh MD Primary Care Provider Dr. Gerardo Saleh Primary Care Provider Dr. Cassy Walker Attending Provider Dr. Justin Das Referring Provider [phone] John SHINE, Juan Unavailable Gerardo Saleh MD Primary Care Provider Gerardo Saleh MD Primary Care Provider Ibrahima Dhaliwal DO Unavailable AZRA MEEKS Referring Unavailable GERARDO SALEH Primary Care Unavailable Remington Sung MD Unavailable Pcp, Inactive Address Primary Care Provider Unav ailable Mary Beth Chen CGC Unavailable Knchris BROOCH AND BRACELET MAKER.Lizeth SCHAFER Unavailable Tiffany Ugarte PA-C Unavailable BREANNE OCAMPO Referring Unavailable BREANNE OCAMPO Attending Unavailable REMINGTON SUNG Referring Unavailable MARY BETH CHEN Attending Unavailable MARY BETH CHEN Attending Unavailable Remington Sung MD Unavailable Toy BROOCH AND BRACELET MAKER.HANH, Lizeth Unavailable Tiffany Ugarte PA-C Unavailable GERARDO SALEH Primary Care Unavailable GERARDO SALEH Primary Care Unavailable GERARDO SALEH Primary Care Unavailable GERARDO SALEH Primary Care Unavailable JUAN LOPEZ Attending Unavailable DELFINO, GERARDO A Primary Care Unavailable MASCI, IBRAHIMA A Referring Unavailable DELFINO, GERARDO A Primary Care Unavailable DELFINO, GERARDO A Primary Care Unavailable JUAN LOPEZ Attending Unavailable DELFINO, GERARDO A Primary Care Unavailable JUAN LOPEZ Attending Unavailable DELFINO, GERARDO A Primary Care Unavailable VZA, EFFIE Referring Unavailable DELFINO, GERARDO A Primary Care Unavailable VAZ, EFFIE Referring Unavailable DELFINO, GERARDO A Primary Care Unavailable VAZ, EFFIE Referring Unavailable EFFIE VAZ Attending Unavailable DELFINO, GERARDO A Primary Care Unavailable [place], EFFIE Referring Unavailable AZRA MEEKS Attending Unavailable DELFINO, GERARDO A Primary Care Unavailable MASCI, IBRAHIMA A Attending Unavailable DELFINO, GERARDO A Primary Care Unavailable MARVA, EFFIE Attending Unavailable DELFINO, GERARDO A Primary Care Unavailable LIZETH SIFUENTES Referring Unavailable DELFINO, GERARDO A Primary Care Unavailable VAZ, EFFIE Referring Unavailable DELFINO, GERARDO A Primary Care Unavailable MASCI, IBRAHIMA A Attending Unavailable DELFINO, GERARDO A Primary Care Unavailable DELFINO, GERARDO A Primary Care Unavailable DELFINO, GERARDO A Primary Care Unavailable MASCI, IBRAHIMA A Referring Unavailable DELFINO, GERARDO A Primary Care Unavailable DELFINO, GERARDO A Primary Care Unavailable UJAN LOPEZ Attending Unavailable DELFINO, GERARDO A Primary Care Unavailable MASCI, IBRAHIMA A Referring Unavailable JUAN LOPEZ Attending Unavailable DELFINO, GERARDO A Primary Care Unavailable DELFINO, GERARDO A Primary Care Unavailable DELFINO, GERARDO A Primary Care Unavailable DELFINO, GERARDO A Primary Care Unavailable DELFINO, GERARDO A Primary Care Unavailable DELFINO, GERARDO A Primary Care Unavailable DELFINO, GERARDO A Primary Care Unavailable DELFINO, GERARDO A Primary Care Unavailable DELFINO, GERARDO A Primary Care Unavailable JUAN LOPEZ Referring Unavailable JUAN LOPEZ Attending Unavailable DELFINO, GERARDO A Primary Care Unavailable LIZETH SIFUENTES Attending Unavailable DELFINO, GERARDO A Primary Care Unavailable EFFIE VAZ Attending Unavailable SUNGREMINGTON Attending Unavailab le DELFINO, GERARDO A Primary Care Unavailable SUNGREMINGTON Referring Unavailab le DELFINO, GERARDO A Primary Care Unavailable DELFINO, GERARDO A Primary Care Unavailable SUNGREMINGTON HIGGINBOTHAM Referring Unavailab le DELFINO, GERARDO A Primary Care Unavailable SUNGREMINGTON Referring Unavailab le DELFINO, GERARDO A Primary Care Unavailable GERARDO SALEH A Primary Care Unavailable REMINGTON SUNG Admitting Unavailab le SUNG, REMINGTON MADERA Attending Unavailab tanya SALEH, GERARDO A Primary Care Unavailable SUNGREMINGTON Referring Unavailab le DELFINO, GERARDO A Primary Care Unavailable SUNGREMINGTON Referring Unavailab le DELFINO, GERARDO A Primary Care Unavailable SUNGREMINGTON Attending Unavailab tanya SALEH, GERARDO A Primary Care Unavailable SUNGREMINGTON Attending Unavailab le DELFINO, GERARDO A Primary Care Unavailable SUNGREMINGTON Attending Unavailab tanya SALEH, GERARDO A Primary Care Unavailable Justin Das Attending Unavailable Gerardo Saleh Primary Care Unavailable Justin Das Referring Unavailable Justin Das Attending Unavailable Delfino Gerardo [facility] Unavailable Allergies Allergy Classification Reported Allergen(s) Allergy Type Date of Onset Reaction(s) Facility (20 sources) Penicillin; Translations: [PENICILLIN] Drug Allergy 6 Anaphylaxis [facility] Work Phone: (20 sources) Sulfonamides (Antibiotic); Translations: [SULFA (SULFONAMIDE ANTIBIOTICS)] Drug Allergy 6 Itching [facility] Work Phone: (2 sources) Penicillins Allergy to substance 1 Swelling [facility] (2 sources) Sulfonamides (Antibiotic) Allergy to substance 1 Itching [facility] (1 source) Penicillins Drug allergy (disorder) 1 [facility] (1 source) Sulfonamides (Antibiotic) Drug allergy (disorder) 1 [facility] Medications Current Medications Medication Drug Class(es) Dates Sig (Normalized) Sig (Original) acetaminophen 325 mg / HYDROcodone bitartrate 5 mg oral tablet (1 source) Opioid Agonist Start: 04-01-2024 End: 04-08-2024 take 1-2 tablets by mouth every four hours as needed for pain HYDROcodone-acetam inophen (NORCO) 5-325 mg per tablet Indications: Malignant neoplasm of upper-outer 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, unspecified estrogen receptor status (HCC) Take 1-2 tablets by mouth every 4 hours as needed for pain for up to 7 days. 18 tablet 04/01/2024 04/08/2024 Active Calcium Carbonate (20 sources) CALCIUM CARBONAT E (TUMS ORAL) Take 1-2 tablets by mouth once daily. 03/24 Active take 1-2 tablets by mouth once d aily CALCIUM CARBONATE (TUMS ORAL) Take 1-2 tablets by mouth once daily. Active take 1-2 tablets by mouth once d aily CALCIUM CARBONATE (TUMS ORAL) Take 1-2 tablets by mouth once daily. 0 Active Comment on above: Take 1-2 tablets by mouth once daily. cholecalciferol 0.05 mg oral capsule (20 sources) Vitamin D Cholecalciferol, Vitamin D3, 50 mcg (2,000 unit) cap Take 1 capsule by mouth once daily. 03/24 Active Comment on above: Take 1 capsule by mo [facility] once daily. Docusate (20 sources) take 1 tablet by mouth once daily docusate sodium (COLACE ORAL) Take 1 tablet by mouth once daily. Active take 1 tablet by mouth once jaxon y docusate sodium (COLACE ORAL) Take 1 tablet by mouth once daily. 0 Active docusate sodium (COLACE ORAL) Take by mouth. 0 Active Comment on above: Take by mouth. Take 1 tablet by alfredo th once daily. exemestane 25 mg oral tablet (19 sources) Aromatase Inhibitor Start: take 1 tablet by mouth once daily after mealtime exemestane (AROMASIN) 25 mg tablet Take 1 tablet by mouth once daily. TAKE AFTER A MEAL. 90 tablet 3 05/14/2024 Active 12 hr guaiFENesin 600 mg extended release oral tablet (20 sources) take 1 tablet by mouth once daily, then take [id number] 1 tablet by mouth every twelve hours guaiFENesin (MUCINEX) 600 mg 12 hr tablet Take 1,200 mg by mouth once daily. 03/24 Active Comment on above: Take 1,200 mg by alfredo th once daily. Xphohdqc-Aouamcp-Rnar -Lutein tab (20 sources) Multivit-Mineral -Iro n-Lutein tab Take 1 tablet by mouth once daily. 03/24 Active take 1 tablet by alfredo th once daily Evlxbtgr-Kusqkji-Bovl-Lutein tab Take 1 tablet by mouth once daily. Active take 1 tablet by alfredo th once daily Uvtnafxr-Xzygfhg-Azbc-Lutein tab Take 1 tablet by mouth once daily. 0 Active Comment on above: Take 1 tablet by alfredo th once daily. Naproxen (20 sources) Nonsteroidal Anti-inflammatory Drug take 1 tablet by mouth once daily naproxen sodium (ALEVE ORAL) Take 1 tablet by mouth once daily. PT STATES WILL STOP TAKING ALEVE WITH LD BEING 03/26. Active take 1 tablet by mouth twice darlene ly naproxen sodium (ALEVE ORAL) Take 1 tablet by mouth two times a day. Active take 1 tablet by mouth twice darlene ly naproxen sodium (ALEVE ORAL) Take 1 tablet by mouth two times a day. 0 Active take 1 tablet by mouth once jaxon y naproxen sodium (ALEVE ORAL) Take 1 tablet by mouth once daily. 0 Active naproxen sodium (ALEVE ORAL) Take by mouth twice daily. 0 Active Comment on above: Take by mouth twice daily. Take 1 tablet by alfredo th once daily. Take 1 tablet by alfredo th two times a day. perflutren lipid microspheres 1.3 mL in NaCl [...] Sig (Original) acetaminophen 325 mg oral tablet (20 sources) Start: 04-06-2021 End: 12-14-2021 take 2 tablets by mouth every six hours acetaminophen (TYLENOL) 325 mg tablet Take 2 tablets by mouth every 6 hours. 120 tablet 0 04/06/2021 12/14/2021 Discontinued take 1 tablet by alfredo th every eight hours as needed acetaminophen (TYLENOL EXTRA STRENGTH) 5 00 mg tablet Take 500 mg by mouth every 8 hours as needed. Active Comment on above: Take 2 tablets by mo [facility] every 6 hours. biotin 1 mg oral tablet (20 sources) End: 07-14-2024 Biotin 1 mg tab Take 1 tablet by mouth once daily. LD 03/2407/14/2024 Discontinued Biotin 1 mg tab Take 1 tablet by mouth every other day. LD 03/24 Active Comment on above: Take 1 tablet by alfredo th every other day. ibuprofen 600 mg oral tablet (4 sources) Nonsteroidal Anti-inflammatory Drug Start: 1 End: 2 take 1 tablet by mouth every six hours ibuprofen (MOTRIN) 600 mg tablet Take 1 tablet by mouth every 6 hours. 120 tablet 0 04/06/2021 12/14/2021 Discontinued Comment on above: Take 1 tablet by alfredo th every 6 hours. latanoprost 0.05 mg/ml ophthalmic solution (17 sources) Prostaglandin Analog take 1 drop(s) into the eye(s) once daily latanoprost (XALATAN) 0.005 % ophthalmic solution Use 1 Drop in both eyes once daily. 0 Active take 1 drop(s) into the eye(s) once daily latanoprost (XALATAN) 0.005 % ophthalmic solution Use 1 Drop in both eyes once daily. 0 Active Comment on above: Use 1 Drop in both e yes once daily. 10 ml lidocaine hydrochloride 10 mg/ml injection (2 sources) Antiarrhythmic, Amide Local Anesthetic Start: 04-01-2024 End: 04-02-2024 SUBCUTANEOUS, NEEDED, Starting on Sat04/01/24 at 0949, Until Stacie 04/02/24 at 0420, Intraprocedure Start: 02-24-2024 End: 02-24-2024 OTHER, NEEDED, Starting o n 02/24/24 at 1352, Until Sat02/24/24 at 1352, Intraprocedure Ftcfymle-Gkqxjhr-Hbio-Lutein (CENTRUM SILVER ULTRA WOMEN'S) tab (3 sources) take 1 tablet by mouth once daily Mxuctxxd-Gteikrg-Oxec-Lutein (CENTRUM SILVER ULTRA WOMEN'S) tab Take 1 tablet by mouth once daily. 0 Active Comment on above: Take 1 tablet by alfredo th once daily. oxyCODONE hydrochloride 5 mg oral tablet (4 sources) Opioid Agonist Sta rt: 1 End : 2 take 1 tablet by mouth every eight hours as needed for pain oxyCODONE IR (ROXICODONE) 5 mg immediate release tablet Indications: Incomplete uterovaginal prolapse , Rectocele , Cystocele, midline Take 1 tablet by mouth every 8 hours as needed for pain. 10 tablet 0 04/06/2021 12/14/2021 Discontinued Comment on above: Take 1 tablet by alfredo th every 8 hours as needed for pain. Problems Active Problems Problem Classification Problem Date Documented Da te Episodic/Chronic Cancer of breast (20 sources) Malignant neoplasm of upper-outer quadrant of female breast; Translations: [Malignant neoplasm of upper-outer quadrant of left female breast] Onset: 6 09-02-2020 Chronic Esophageal disorders (1 source) Gastroesophageal reflux disease without esophagitis; Translations: [Gastro-esophageal reflux disease without esophagitis] Chronic Genitourinary symptoms and ill-defined conditions (20 sources) Incontinence; Translations: [Mixed incontinence] Onset: 2 05-12-2021 Chronic Osteoarthritis (2 sources) Osteoarthritis of left knee joint; Translations: [Unilateral primary osteoarthritis, left knee] Onset: 5 07-15-2023 Chronic Osteoporosis (20 sources) Senile osteoporosis; Translations: [Age-related osteoporosis without current pathological fracture] Onset: 4 05-20-2023 Chronic Other bone disease and musculoskeletal deformities (2 sources) Disorder of bone; Translations: [Disorder of bone, unspecified] 05-14-2024 Episodic Other diseases of veins and lymphatics (20 sources) Lymphedema of left upper limb; Translations: [...] Chronic Other nutritional; endocrine; and metabolic disorders (4 sources) Obesity caused by energy imbalance; Translations: [Other obesity due to excess calories] Onset: 1 04-03-2021 Chronic Other nutritional; endocrine; and metabolic disorders (20 sources) Obese class I; Translations: [Obesity, unspecified] Onset: 1 11-21-2023 Chronic Other nutritional; endocrine; and metabolic disorders (2 sources) History of nutritional deficiency; Translations: [Personal history of other endocrine, nutritional and metabolic disease] 05-14-2024 Episodic Other screening for suspected conditions (not mental disorders or infectious disease) (15 sources) Ultrasonography of breast abnormal; Translations: [Other abnormal and inconclusive findings on diagnostic imaging of breast] Onset: 4 Episodic Prolapse of female genital organs (20 sources) Midline cystocele; Translations: [Cystocele, midline] Onset: 1 10-28-2020 Chronic Residual codes; unclassified (1 source) Family history of breast cancer; Translations: [Family history of malignant neoplasm of breast] Onset: 4 03-19-2024 Episodic Screening and history of mental health and substance abuse codes (2 sources) Encounter for screening for depression; Translations: [Encounter for screening examination for other mental health and behavioral disorders] Onset: Episodic Superficial injury; contusion (1 source) Foreign body in hand; Translations: [Superficial foreign body of right hand, initial encounter] Episodic Past or Other Problems Problem Classification Problem Date Documented Da te Episodic/Chronic Administrative/social admission (20 sources) Advance directive discussed with patient; Translations: [Other specified counseling] Onset: 12-26-2021 Episodic Anal and rectal conditions (20 sources) Incomplete rectal prolapse; Translations: [Rectal prolapse] Onset: 03-14-2021 03-14-2021 Episodic Cancer of breast (20 sources) History of malignant neoplasm of breast; Translations: [Personal history of malignant neoplasm of breast] Onset: 01-03-2024 Episodic Diabetes mellitus without complication (20 sources) Hyperglycemia; Translations: [Hyperglycemia, unspecified] Onset: 09-02-2020 09-02-2020 Episodic Hemorrhoids (20 sources) Hemorrhoids; Translations: [Unspecified hemorrhoids] Onset: 03-14-2021 03-14-2021 Episodic Other aftercare (20 sources) Patient encounter status; Translations: [Other watcher automat long goods (current) drug therapy] Onset: 09-02-2020 09-02-2020 Episodic Other aftercare (1 source) Other group home (current) drug therapy; Translations: [Medication management] Onset: 09-02-2020 Episodic Other and unspecified benign neoplasm (20 sources) History of polyp of colon; Translations: [Personal history of colonic polyps] Onset: 10-28-2020 Resolved: 12-19-2020 12-19-2020 Episodic Other bone disease and musculoskeletal deformities (20 sources) Senile osteopenia; Translations: [Other specified disorders of bone density and structure, unspecified site] Onset: 02-10-2019 09-02-2020 Episodic Other bone disease and musculoskeletal deformities (1 source) Disorder of bone, unspecified; Translations: [Disorder of bone, unspecified] Onset: 05-14-2024 Episodic Other diseases of veins and lymphatics (20 sources) Peripheral venous insufficiency; Translations: [Venous insufficiency (chronic) (peripheral)] Onset: 03-09-2019 09-02-2020 Episodic Other nutritional; endocrine; and metabolic disorders (1 source) Personal history of other endocrine, nutritional and metabolic disease; Translations: [History of vitamin D deficiency] Onset: 05-14-2024 Episodic Residual codes; unclassified (16 sources) Postoperative state; Translations: [Other specified postprocedural states] Onset: 05-12-2021 05-12-2021 Episodic Residual codes; unclassified (20 sources) Estrogen receptor positive tumor; Translations: [Estrogen receptor positive status [ER+]] Onset: 03-09-2024 03-09-2024 Episodic Residual codes; unclassified (3 sources) Estrogen receptor positive status [ER+]; Translations: [Malignant neoplasm of overlapping sites of right breast in female, estrogen receptor positive (HCC)] Onset: 09-02-2020 Episodic Results Test Name Value Interpretation Reference Range Facility [facility] 10-21-2024 [facility] Visit (SP) Office (KASANDRA) LOVE PINO ([id number]) 1950 F TXT Date Time Provider Department 10/21/24 9:00 AM EFFIE VAZ During your visit today, we recorded the following information about you: Temperature Pulse Blood pressure Weight 97.6 degrees 90/minute 134/85 87 kg Effie Vaz BROOCH AND BRACELET MAKER.SCRAP DROP ENGINEER 10/21/2024 9:34 AM Signed Chief Complaint Patient presents with: Established Patient HPI: Love Pino is a 74 year old female who presents here today [...] nuclear grade 2. ER >90%, strong and OR 60%, weak to moderate. HER2 quantified at [...] An additional 11 lymph nodes were negative. OV 04/16/2024: Received adjuvant radiation to the left breast. That was followed with 5 years of anastrozole completed 03/2021. Recent lumpectomy and sentinel lymph node biopsy for new right sided lobular carcinoma. NGS/biomarkers/wheat combine driver mutation analyses: Shannan genetic testing negative. RADIATION:05/25/24 - 06/12/24 Right breast Current therapy:Aromasin Began after radiation. No new concerns today. Appetite:It's good. Stable. Energy level:It's good. Denies fevers or recent illness. Resp:denies cough or sob, occ. panchal with steps Cardiac:denies chest pain/palpitations GI:denies abd pain, n/v, moving bowels regularly :denies dysuria/hematuria Extrem:chronic L knee pain-followed by Ortho-Dr. Das, denies new pain Endo:+hot flashes Probably two-three times per day. Neuro:denies symptoms of neuropathy Skin:denies rashes/lesions Heme:denies bleeding The ROS is otherwise negative. Past medical history, appointments, medications, allergies reviewed. No changes. EXAM: BP 134/85 Pulse 90 Temp 36.4 ?C (97.6 ?F) (Temporal) Wt 87 kg (191 lb 12.8 oz) LMP 01/27/2003 SpO2 96% BMI 34.85 kg/m? APPEARANCE Well appearing, alert, in no acute distress, well-hydrated, well nourished. HEART RRR with normal S1 and S2, no murmurs LUNG clear to auscultation BREAST FEMALE b/l surgical scars, no mass/nodule b/l LYMPH NODES No cervical lymphadenopathy, No supraclavicular lymphadenopathy, and No axillary lymphadenopathy. ABDOMEN bowel sounds normoactive, soft, non-tender EXTREMITIES No edema NEURO Awake, alert and oriented x 3, Normal gait, and No involuntary motions. SKIN Skin color, texture, turgor normal, no suspicious rashes or lesions ASSESSMENT/PLAN: 1. Malignant neoplasm of overlapping sites of right breast in female, estrogen receptor positive (HCC) - ICD9: 174.8, V86.0, ICD10: C50.811, Z17.[address] Dhaliwal's previous note: Assessment: -New pT1c(m) pNX M0 ER/OR positive, HER2 negative invasive lobular carcinoma of the right breast. -History of a pT1 (1.9 cm; grade 2; LVI+) pN1a MX ER/OR positive HER2 negative stage IIA invasive ductal carcinoma the left breast. -Reviewed Oncotype DX. Plan up to 7 years exemestane. -Discussed bone health issues. Plan: -Scheduled to begin RT. -Rx for exemestane to start two weeks after completes radiation. -Check vit D. -DXA. -Dental clearance form provided. -Begin q 3 month Zometa in about 6 months--sooner if bone density worsened. -OV for SCP in about 2 months. - No concerning findings on exam. - Tolerating aromasin well. - Pt. would like to hold off on zometa for now. - Continue aromasin. - Mammogram ordered per surgeon-already scheduled. - Follow up with surgeon as scheduled. - After next visit plan to alt. every 6 months with surgeon. - Follow up in 4 months. - Pt. aware to call office with any questions/concerns. The patient indicates understanding of these issues and agrees with the plan. All documentation from previous visit of 07/14/24-Dr. Dhaliwal/myself was copied and pasted, documentation has been reviewed and edited as necessary for today's visit. Effie Vaz APRN.SCRAP DROP ENGINEER Allergies As of Date: 10/21/2024 Noted Allergy Reaction PENI (more content not included)... Normal [facility] CNOVon 10-19-2024 CNOV Office Visit (BRSTMM ) LOVE PINO ([id number]) 1950 F TXT Date Time Provider Department 10/19/24 9:00 AM REMINGTON SUNG [facility] During your visit today, we recorded the following information about you: Pulse Respiration Blood pressure Weight 86/minute 14/minute 157/84 88 kg Remington Sung MD 10/19/2024 1:26 PM Signed October 19, 2024 Love Pino 1950 NOOKSACK: Love is here today for her routine breast check. She is now 6 months out from a right partial mastectomy with radiation therapy. She is taking exemestane and tolerating it well. She is 9 years out from a left partial mastectomy with sentinel node biopsy, axillary node biopsy, radiation, and 5 years of Anastrozole therapy. She follows with her oncologist in [place]. She had genetic testing that was negative for actionable abnormalities. She is doing well. She has no new neurologic, pulmonary, GI, or long bone symptoms. She is doing reasonably well with her exemestane. She has a little bit of joint stiffness at times and some hot flashes but it is all tolerable. She feels nothing new or different in either breast. Her last mammogram was 01/03/2024 (preop). PAST MEDICAL HISTORY Diagnosis Date Arthritis aleve or advil prn Breast cancer of upper-outer quadrant of left female breast (HCC) 01/12/2016 Dr. Sung, lumpectomy Cystocele, midline 09/02/2020 Delayed emergence from general anesthesia Elevated blood sugar 09/02/2020 pt states high normal, not on medication, diet controlled History of colonic polyps 10/28/2020 colonoscopy- Dr. Bowden Lymphedema of left upper extremity 05/14/2016 S/p lumpectomy and node biopsy Malignant neoplasm of upper-outer quadrant of left breast in female, estrogen receptor positive (HCC) 11/06/2016 Dr. Sung Medicare annual wellness visit, subsequent 02/10/2019 Medical B eligibilty date 06/27/2017 Last done 09/02/2020 Mixed incontinence 05/12/2021 Obesity, Class I, BMI 30-34.9 04/03/2021 Osteopenia PONV (postoperative nausea and vomiting) Venous insufficiency (chronic) (peripheral) 03/09/2019 pt states left arm swelling since lymph node removal PAST SURGICAL HISTORY Procedure Laterality Date BREAST LUMPECTOMY HX Right 04/01/2024 BREAST SURGERY HX Left lumpectomy, followed by radiation and pills CARPAL TUNNEL 2014 Bilateral COLONOSCOPY 2017 repeat 5 yrs COLONOSCOPY FLX DX W/COLLJ SPEC WHEN PFRMD 12/19/2020 DILATION AND CURETTAGE DXAND/THER NONOBSTETRIC 1979 Dilation AND curettage KNEE SURGERY HX Right 08/01/2023 Total MASTECTOMY, PARTIAL Left 01/03/2016 lymph node bx(13) PAST SURGICAL HISTORY OF PAST SURGICAL HISTORY OF 03/2021 vaginal hysterectomy, ovaries remain FAMILY HISTORY Problem Relation Age of Onset Breast Cancer Mother 57 age 60 Diabetes Father Heart Father GI Father bleeding ulcers No Known Problems Sister Parkinson?s Disease Sister No Known Problems Sister No Known Problems Sister Cancer Brother age 59 Lymphoma/liver disease No Known Problems Brother No Known Problems Brother other (Thyroid or Thraot cancer) Maternal Grandmother No Known Problems Maternal Grandfather other (Heart Condition) Paternal Grandmother other (Heart Condition) Paternal Grandfather Colon Cancer Maternal Aunt Colon Cancer Maternal Uncle Social History Tobacco Use Smoking status: Never Smokeless tobacco: Never Vaping Use Vaping status: Never Used Substance Use Topics Alcohol use: Yes Comment: wine Drug use: Never Current Outpatient Medications Medication Sig Dispense Refill exemestane (AROMASIN) 25 mg tablet Take 1 tablet by mouth once daily. TAKE AFTER A MEAL. 90 tablet 3 acetaminophen (TYLENOL EXTRA STRENGTH) 500 mg tablet Take 500 mg by mouth every 8 hours as needed. guaiFENesin (MUCINEX) 600 mg 12 hr tablet Take 1,200 mg by mouth once daily. LD 03/24 naproxen sodium (ALEVE ORAL) Take 1 tablet by mouth once daily. PT STATES WILL STOP TAKING ALEVE WITH LD BEING 03/26. docusate sodium (COLACE ORAL) Take 1 tablet by mouth once daily. CALCIUM CARBONATE (TUMS ORAL) Take 1-2 tablets by mouth once daily. LD 03/24 Cholecalciferol, Vitamin D3, 50 mcg (2,000 unit) cap Take 1 capsule by mouth once daily. LD 03/24 Pvosvdpa-Wfipazb-Lrcc-L utein tab Take 1 tablet by mouth once daily. LD 03/24 No current facility-administered medications for this visit. ALLERGIES Allergen Reactions Penicillin Anaphylaxis Sulfa (Sulfonamide * Itching REVIEW OF SYSTEMS: GENERAL: No fever/chills. No unusual weight change. EYES: No blurring or diplopia. No drainage. No unusual vision loss. Wears corrective lenses. EARS: No earache. No drainage. No hearing loss. NOSE: No acute congestion or drainage. THROAT: No sore throat. No difficulty swallowing. CARDIAC: No chest pains or palpitations. No peripheral edema. P (more content not included)... Normal [facility] CBC W Auto Differential pane l (Bld)on 10-06-2024 Basophils (Bld) [#/Vol] 0.05 10*3/uL [facility] Basophils/100 WBC (Bld) 0.9 % [facility] Differential cell count method Nom (Bld) Auto [facility] Eosinophils (Bld) [#/Vol] 0.21 10*3/uL [facility] Eosinophils/100 WBC (Bld) 4 % [facility] Erythrocyte distribution width (RBC) [Ratio] 13.1 % 11.5 - 15.0 % [facility] Hematocrit (Bld) [Volume fraction] 46.8 % High 36.0 - 46.0 % [facility] Hemoglobin (Bld) [Mass/Vol] 14.9 g/dL 11.5 - 15.5 g/dL [facility] Immature granulocytes (Bld) [#/Vol] [facility] Immature granulocytes/100 WBC (Bld) 0.2 % [facility] Interpretation and review of laboratory results Abnormal [facility] Lymphocytes (Bld) [#/Vol] 1.59 10*3/uL [facility] Lymphocytes/100 WBC (Bld) 29.9 % [facility] MCH (RBC) [Entitic mass] 29.5 pg 26.0 - 34.0 pg [facility] MCHC (RBC) [Mass/Vol] 31.8 g/dL 30.5 - 36.0 g/dL [facility] MCV (RBC) [Entitic vol] 92.7 fL 80.0 - 100.0 fL [facility] Monocytes (Bld) [#/Vol] 0.74 10*3/uL NINF [facility] Monocytes/100 WBC (Bld) 13.9 % [facility] Neutrophils (Bld) [#/Vol] 2.71 10*3/uL [facility] Neutrophils/100 WBC (Bld) 51.1 % [facility] Nucleated RBC (Bld) [#/Vol] NINF [facility] Nucleated RBC/100 WBC (Bld) [Ratio] 0 % /100 WBC [facility] Platelet mean volume (Bld) [Entitic vol] 9.3 fL 9.0 - 12.7 fL [facility] Platelets (Bld) [#/Vol] 382 10*3/uL [facility] RBC (Bld) [#/Vol] 5.05 10*6/uL 3.90 - 5.2 0 m/uL [facility] WBC (Bld) [#/Vol] 5.31 10*3/uL [facility] Basophils (Bld) [#/Vol] 0.05 10*3/uL Normal <0.11 [facility] Comment on above: Order Comment: Speci men Type: BLOOD SPECIMENOrdering Facility: [facility] Address: [address] [place] [address] Performed By: #### 5 7021-8 ####[facility] LABCLIA [id number] [address] [place] Basophils/100 WBC (Bld) 0.9 % Normal [facility] Comment on above: Order Comment: Speci men Type: BLOOD SPECIMENOrdering Facility: [facility] Address: [address] [place] [address] Performed By: #### 5 7021-8 ####[facility] LABCLIA [id number] [place] [address] [place] Differential cell count method Nom (Bld) Auto Normal [facility] Comment on above: Order Comment: Speci men Type: BLOOD SPECIMENOrdering Facility: [facility] Address: [address] [place] [address] Performed By: #### 5 7021-8 ####[facility] LABCLIA [id number] [place] [address] [place] Eosinophils (Bld) [#/Vol] 0.21 10*3/uL Normal <0.46 [facility] Comment on above: Order Comment: Speci men Type: BLOOD SPECIMENOrdering Facility: [facility] Address: [address] [place] [address] Performed By: #### 5 7021-8 ####[facility] LABCLIA [id number] [place] [address] [place] Eosinophils/100 WBC (Bld) 4.0 % Normal [facility] Comment on above: Order Comment: Speci men Type: BLOOD SPECIMENOrdering Facility: [facility] Address: [address] [place] [address] Performed By: #### 5 7021-8 ####[facility] LABCLIA [id number] [place] [address] [place] Erythrocyte distribution width (RBC) [Ratio] 13.1 % Normal 11.5-15.0 [facility] Comment on above: Order Comment: Speci men Type: BLOOD SPECIMENOrdering Facility: [facility] Address: [address] [place] [address] Performed By: #### 5 7021-8 ####[facility] LABCLIA [id number] [place] [address] [place] Hematocrit (Bld) [Volume fraction] 46.8 % High 36.0-46.0 [facility] Comment on above: Order Comment: Speci men Type: BLOOD SPECIMENOrdering Facility: [facility] Address: [address] [place] [address] Performed By: #### 5 7021-8 ####[facility] LABCLIA [id number] [place] [address] [place] Hemoglobin (Bld) [Mass/Vol] 14.9 g/dL Normal 11.5-15.5 [facility] Comment on above: Order Comment: Speci men Type: BLOOD SPECIMENOrdering Facility: [facility] Address: [address] [place] [address] Performed By: #### 5 7021-8 ####[facility] LABCLIA [id number] [place] [address] [place] Immature granulocytes (Bld) [#/Vol] 10*3/uL Normal <0.10 [facility] Comment on above: Order Comment: Speci men Type: BLOOD SPECIMENOrdering Facility: [facility] Address: [address] [place] [address] Performed By: #### 5 7021-8 ####[facility] LABCLIA [id number] [place] [address] [place] Immature granulocytes/100 WBC (Bld) 0.2 % Normal [facility] Comment on above: Order Comment: Speci men Type: BLOOD SPECIMENOrdering Facility: [facility] Address: [address] [place] [address] Performed By: #### 5 7021-8 ####[facility] LABCLIA [id number] [place] [address] [place] Lymphocytes (Bld) [#/Vol] 1.59 10*3/uL Normal 1.00-4.00 [facility] Comment on above: Order Comment: Speci men Type: BLOOD SPECIMENOrdering Facility: [facility] Address: [address] [place] [address] Performed By: #### 5 7021-8 ####[facility] LABCLIA [id number] [place] [address] [place] Lymphocytes/100 WBC (Bld) 29.9 % Normal [facility] Comment on above: Order Comment: Speci men Type: BLOOD SPECIMENOrdering Facility: [facility] Address: [address] [place] [address] Performed By: #### 5 7021-8 ####[facility] LABIA [id number] [place] [address] [place] MCH (RBC) [Entitic mass] 29.5 pg Normal 26.0-34.0 [facility] Comment on above: Order Comment: Speci men Type: BLOOD SPECIMENOrdering Facility: [facility] Address: [address] [place] [address] Performed By: #### 5 7021-8 ####[facility] LABIA [id number] [place] [address] [place] MCHC (RBC) [Mass/Vol] 31.8 g/dL Normal 30.5-36.0 [facility] Comment on above: Order Comment: Speci men Type: BLOOD SPECIMENOrdering Facility: [facility] Address: [address] [place] [address] Performed By: #### 5 7021-8 ####[facility] LABCLIA [id number] [place] [address] [place] MCV (RBC) [Entitic vol] 92.7 fL Normal 80.0-100.0 [facility] Comment on above: Order Comment: Speci men Type: BLOOD SPECIMENOrdering Facility: [facility] Address: [address] [place] [address] Performed By: #### 5 7021-8 ####[facility] LABCLIA [id number] [place] [id number] [place] Monocytes (Bld) [#/Vol] 0.74 10*3/uL Normal <0.87 [facility] Comment on above: Order Comment: Speci men Type: BLOOD SPECIMENOrdering Facility: [facility] Address: [address] [place] [address] Performed By: #### 5 7021-8 ####[facility] LABCLIA [id number] [address], [place] [address] [place] Monocytes/100 WBC (Bld) 13.9 % Normal [facility] Comment on above: Order Comment: Speci men Type: BLOOD SPECIMENOrdering Facility: [facility] Address: [address] [place] [address] Performed By: #### 5 7021-8 ####[facility] LABCLIA [id number] [place] [address] [place] Neutrophils (Bld) [#/Vol] 2.71 10*3/uL Normal 1.45-7.50 [facility] Comment on above: Order Comment: Speci men Type: BLOOD SPECIMENOrdering Facility: [facility] Address: [address] [place] [address] Performed By: #### 5 7021-8 ####[facility] LABCLIA [id number] [place] [address] [place] Neutrophils/100 WBC (Bld) 51.1 % Normal [facility] Comment on above: Order Comment: Speci men Type: BLOOD SPECIMENOrdering Facility: [facility] Address: [address] [place] [address] Performed By: #### 5 7021-8 ####[facility] LABCLIA [id number] [place] [address] [place] Nucleated RBC (Bld) [#/Vol] 10*3/uL Normal <0.01 [facility] Comment on above: Order Comment: Speci men Type: BLOOD SPECIMENOrdering Facility: [facility] Address: [address] [place] [address] Performed By: #### 5 7021-8 ####[facility] LABCLIA [id number] [place] [address] [place] Nucleated RBC/100 WBC (Bld) [Ratio] 0.0 /100 WBC Normal [facility] Comment on above: Order Comment: Speci men Type: BLOOD SPECIMENOrdering Facility: [facility] Address: [address] [place] [address] Performed By: #### 5 7021-8 ####[facility] LABCLIA [id number] [place] [address] [place] Platelet mean volume (Bld) [Entitic vol] 9.3 fL Normal 9.0-12.7 [facility] Comment on above: Order Comment: Speci men Type: BLOOD SPECIMENOrdering Facility: [facility] Address: [address] [place] [address] Performed By: #### 5 7021-8 ####[facility] LABIA [id number] [place] [address] [place] Platelets (Bld) [#/Vol] 382 10*3/uL Normal 150-400 [facility] Comment on above: Order Comment: Speci men Type: BLOOD SPECIMENOrdering Facility: [facility] Address: [address] [place] [address] Performed By: #### 5 7021-8 ####[facility] LABCLIA [id number] [address] [address] [place] RBC (Bld) [#/Vol] 5.05 10*6/uL Normal 3.90-5.20 [facility] Comment on above: Order Comment: Speci men Type: BLOOD SPECIMENOrdering Facility: [facility] Address: [address] [place] [address] Performed By: #### 5 7021-8 ####[facility] LABIA [id number] [place] [id number] [place] WBC (Bld) [#/Vol] 5.31 10*3/uL Normal 3.70-11.00 [facility] Comment on above: Order Comment: Speci men Type: BLOOD SPECIMENOrdering Facility: [facility] Address: [address] [place] [address] Performed By: #### 5 7021-8 ####[facility] LABCLIA [id number] [place] [id number] [place] CNOVon 10-06-2024 CNOV Office Visit (GERALDOWS ) LOVE PINO ([id number]) 1950 F TXT Date Time Provider Department 10/06/24 9:00 AM LIZETH SIFUENTES During your visit today, we recorded the following information about you: Pulse Blood pressure Weight 80/minute 131/82 88 kg Lizeth Sifuentes APRN.SCRAP DROP ENGINEER 10/06/2024 9:06 AM Signed Love Duarte Odette is a 74 year old female here for a Medicare wellness visit. Medicare Health Risk Assessment General Health Very good Exercise: Minutes/Day 10 min Exercise: Days/Week 1 day Alcohol: Daily Use Monthly or less Alcohol: Drinks/Day 1 or 2 Alcohol: 6 or more drinks Never Feel off balance No Concerns: Teeth/Dentures No Concerns: Sexual function No Troubled by feelings Anxious Frequency: Eating healthy diet Nearly every day ADLs requiring help None of the above Safety precautions in home/vehicle Yes Smoke, vape, chews tobacco No Difficulty hearing No Difficulty seeing No Current Providers Specialists: I have reviewed specialist-related care of the patient in the medical record. Current care team: Patient Care Team: Gerardo Saleh MD as PCP - General (Family Medicine) Juan Lopez MD as Physician (Radiation Oncology) Ibrahima Dhaliwal DO (Hematology/Oncology) Remington Sung MD (General Surgery) Lizeth Sifuentes APRN.SCRAP DROP ENGINEER as Cement Crusher Operator (Family Medicine) Tiffany Ugarte PA-C as Cement Crusher Operator (Family Medicine) Medical/Family history review Reviewed and updated problem list, medical/surgical/family /social history, medications, and allergies. Opioid use review Opioid Medications (last 90 days) No data to display Anxiety/Depression screening KIRK-7 Score: 2 (Minimal Anxiety) Recommendation: no further intervention at this time Cognitive screening Cognitive screening reviewed and No further action needed (score 3-5). Functional Observation Was the patient's Timed Up AND Go test unsteady or >= 12 seconds? No Advance Care Planning Surrogate decision maker and/or advance care plan documented Measurements BP 131/82 Pulse 80 Wt 88 kg (194 lb 0.1 oz) LMP 01/27/2003 BMI 35.25 kg/m? Vision Screening: Follows with optometry/ophthalmology Assessment/Plan Medicare annual wellness visit, subsequent (Z00.00) - Counseled on healthy diet and regular exercise - Fall avoidance information provided - Personalized prevention plan provided - Discussed need for and benefit of weight loss. BMI 35.25 kg/(m2) Chief Complaint Patient presents with: Medicare Wellness Exam HPI Love Pino is a 74 year old female who presents here today for Above Complaints. Patient presents for annual wellness exam. Patient reports she has been gaining weight from her cancer medication. Past medical history, appointments, medications, allergies reviewed. Previous Medical History PAST MEDICAL HISTORY Diagnosis Date Arthritis aleve or advil prn Breast cancer of upper-outer quadrant of left female breast (HCC) 01/12/2016 Dr. Sung, lumpectomy Cystocele, midline 09/02/2020 Delayed emergence from general anesthesia Elevated blood sugar 09/02/2020 pt states high normal, not on medication, diet controlled History of colonic polyps 10/28/2020 colonoscopy- Dr. Bowden Lymphedema of left upper extremity 05/14/2016 S/p lumpectomy and node biopsy Malignant neoplasm of upper-outer quadrant of left breast in female, estrogen receptor positive (HCC) 11/06/2016 Dr. Sung Medicare annual wellness visit, subsequent 02/10/2019 Medical B eligibilty date 06/27/2017 Last done 09/02/2020 Mixed incontinence 05/12/2021 Obesity, Class I, BMI 30-34.9 04/03/2021 Osteopenia PONV (postoperative nausea and vomiting) Venous insufficiency (chronic) (peripheral) 03/09/2019 pt states left arm swelling since lymph node removal Previous Surgical History PAST SURGICAL HISTORY Procedure Laterality Date BREAST LUMPECTOMY HX Right 04/01/2024 BREAST SURGERY HX Left lumpectomy, followed by radiation and pills CARPAL TUNNEL 2014 Bilateral COLONOSCOPY 2017 repeat 5 yrs COLONOSCOPY FLX DX W/COLLJ SPEC WHEN PFRMD 12/19/2020 DILATION AND CURETTAGE DXAND/THER NONOBSTETRIC 1979 Dilation AND curettage KNEE SURGERY HX Right 08/01/2023 Total MASTECTOMY, PARTIAL Left 01/03/2016 lymph node bx(13) PAST SURGICAL HISTORY OF PAST SURGICAL HISTORY OF 03/2021 vaginal hysterectomy, ovaries remain Family History FAMILY HISTORY Problem Relation Age of Onset Breast Cancer Mother 57 age 60 Diabetes Father Heart Father GI Father bleeding ulcers No Known Problems Sister Parkinson?s Disease Sister No Known Problems Sister No Known Problems Sister Cancer Brother age 59 Lymphoma/liver disease No Known Problems Brother No Known Problems Brother other (Thyroid or Thraot cancer) Maternal Grandmother No Known Problems Maternal Gran (more content not included)... Normal [facility] Comprehensive metabolic 2000 panelon 10-06-2024 Albumin [Mass/Vol] 4 g/dL 3.9 - 4.9 g/dL [facility] ALP [Catalytic activity/Vol] 106 U/L 34 - 123 U/L [facility] ALT [Catalytic activity/Vol] 18 U/L 7 - 38 U/L [facility] Anion gap [Moles/Vol] 8 mmol/L 8 - 15 mmol/L [facility] AST [Catalytic activity/Vol] 23 U/L 13 - 35 U/L [facility] Bilirubin [Mass/Vol] 0.2 mg/dL 0.2 - 1 .3 mg/dL [facility] Calcium [Mass/Vol] 10 mg/dL 8.5 - 10. 2 mg/dL [facility] Chloride [Moles/Vol] 103 mmol/L 98 - 10 7 mmol/L [facility] CO2 [Moles/Vol] 29 mmol/L 22 - 30 mmol/L [facility] Creatinine [Mass/Vol] 0.73 mg/dL 0.58 - 0.96 mg/dL [facility] GFR/1.73 sq M.predicted among non-blacks MDRD (S/P/Bld) [Vol rate/Area] 88 mL/min/{1.73_m2} - PINF [facility] Comment on above: Estimated Glomerular Filtration Rate (eGFR) is calculated using the 2020 CKD-EPI creatinine equation. This equation utilizes serum creatinine, sex, and age as parameters. The creatinine assay has traceable calibration to isotope dilution-mass spectrometry. Refer to KDIGO guidelines for clinical interpretation. In patients with unstable renal function, e.g. those with acute kidney injury, the eGFR may not accurately reflect actual GFR. Glucose [Mass/Vol] 91 mg/dL 74 - 99 mg/dL [facility] Comment on above: The [place] Diab[employer] Association (ADA) provides guidance for cutoff values for fasting glucose and random glucose. The ADA defines fasting as no caloric intake for at least 8 hours. Fasting plasma glucose results between 100 to 125 mg/dL indicate increased risk for diabetes (prediabetes). Fasting plasma glucose results greater than or equal to 126 mg/dL meet the criteria for diagnosis of diabetes. In the absence of unequivocal hyperglycemia, results should be confirmed by repeat testing. In a patient with classic symptoms of hyperglycemia or hyperglycemic crisis, random plasma glucose results greater than or equal to 200 mg/dL meet the criteria for diagnosis of diabetes. Reference: Standards of Medical Care in Diabetes 2016, [place] [employer]. Diabetes Care. 2016.39(Suppl 1). Interpretation and review of laboratory results Normal [facility] Potassium [Moles/Vol] 5 mmol/L 3.7 - 5.1 mmol/L [facility] Protein [Mass/Vol] 7.4 g/dL 6.3 - 8.0 g/dL [facility] Sodium [Moles/Vol] 140 mmol/L 136 - 144 mmol/L [facility] Urea nitrogen [Mass/Vol] 18 mg/dL 7 - 21 mg/dL [facility] Albumin [Mass/Vol] 4.0 g/dL Normal 3.9-4.9 [facility] Comment on above: Order Comment: Speci men Type: BLOOD SPECIMENOrdering Facility: [facility] Address: [facility] [place] [address] Performed By: #### 2 4323-8, LIPNF ####[facility] LABCLIA [id number] [place] [address] [place] ALP [Catalytic activity/Vol] 106 U/L Normal 34-123 [facility] Comment on above: Order Comment: Speci men Type: BLOOD SPECIMENOrdering Facility: [facility] Address: [address] [place] [address] Performed By: #### 2 4323-8, LIPNF ####[facility] LABCLIA [id number] [facility] [place] [address] [place] ALT [Catalytic activity/Vol] 18 U/L Normal 7-38 [facility] Comment on above: Order Comment: Speci men Type: BLOOD SPECIMENOrdering Facility: [facility] Address: [address] [place] [address] Performed By: #### 2 4323-8, LIPNF ####[facility] LABCLIA [id number] [place] [address] [place] Anion gap [Moles/Vol] 8 mmol/L Normal 8-15 [facility] Comment on above: Order Comment: Speci men Type: BLOOD SPECIMENOrdering Facility: [facility] Address: [address] [place] [address] Performed By: #### 2 4323-8, LIPNF ####[facility] LABCLIA [id number] [place] [address] [place] AST [Catalytic activity/Vol] 23 U/L Normal 13-35 [facility] Comment on above: Order Comment: Speci men Type: BLOOD SPECIMENOrdering Facility: [facility] Address: [address] [place] [address] Performed By: #### 2 4323-8, LIPNF ####[facility] LABCLIA [id number] [place] [id number] [place] Bilirubin [Mass/Vol] 0.2 mg/dL Normal 0.2-1.3 [facility] Comment on above: Order Comment: Speci men Type: BLOOD SPECIMENOrdering Facility: [facility] Address: [address] [place] [id number] Performed By: #### 2 4323-8, LIPNF ####[facility] LABCLIA [id number] [facility] [address] [address] [place] Calcium [Mass/Vol] 10.0 mg/dL Normal 8.5-10.2 [facility] Comment on above: Order Comment: Speci men Type: BLOOD SPECIMENOrdering Facility: [facility] Address: [address] [place], [place] [address] Performed By: #### 2 4323-8, LIPNF ####[facility] LABCLIA [id number] [address] [address] [place] Chloride [Moles/Vol] 103 mmol/L Normal 98-107 [facility] Comment on above: Order Comment: Speci men Type: BLOOD SPECIMENOrdering Facility: [facility] Address: [address] [place], [place] [address] Performed By: #### 2 4323-8, LIPNF ####[facility] LABCLIA [id number] [facility] [place] [id number] [place] CO2 [Moles/Vol] 29 mmol/L Normal 22-30 [facility] Comment on above: Order Comment: Speci men Type: BLOOD SPECIMENOrdering Facility: [facility] Address: [address] [place] [address] Performed By: #### 2 4323-8, LIPNF ####[facility] LABCLIA [id number] [address] [address] [place] Creatinine [Mass/Vol] 0.73 mg/dL Normal 0.58-0.96 [facility] Comment on above: Order Comment: Speci men Type: BLOOD SPECIMENOrdering Facility: [facility] Address: [address] [place] [address] Performed By: #### 2 4323-8, LIPNF ####[facility] LABCLIA [id number] [address] [place] Creatinine and Glomerular filtration rate.predicted panel (S/P/Bld) 88 mL/min/1.73m??? Normal >=60 [facility] Comment on above: Order Comment: Efraín peck Type: BLOOD SPECIMENOrdering Facility: [facility] Address: [address] [place] [address] Result Comment: Dorota mated Glomerular Filtration Rate (eGFR) is calculated using the 2020 CKD-EPI creatinine equation. This equation utilizes serum creatinine, sex, and age as parameters. The creatinine assay has traceable calibration to isotope dilution-mass spectrometry. Refer to KDIGO guidelines for clinical interpretation. In patients with unstable renal function, e.g. those with acute kidney injury, the eGFR may not accurately reflect actual GFR. Performed By: #### 2 4323-8, LIPNF ####[facility] LABCLIA [id number] [place] [address] [place] Glucose [Mass/Vol] 91 mg/dL Normal 74-99 [facility] Comment on above: Order Comment: Efraín peck Type: BLOOD SPECIMENOrdering Facility: [facility] Address: [address] [place] [address] Result Comment: The [place] Diabetes Association (ADA) provides guidance for cutoff values for fasting glucose and random glucose. The ADA defines fasting as no caloric intake for at least 8 hours. Fasting plasma glucose results between 100 to 125 mg/dL indicate increased risk for diabetes (prediabetes). Fasting plasma glucose results greater than or equal to 126 mg/dL meet the criteria for diagnosis of diabetes. In the absence of unequivocal hyperglycemia, results should be confirmed by repeat testing. In a patient with classic symptoms of hyperglycemia or hyperglycemic crisis, random plasma glucose results greater than or equal to 200 mg/dL meet the criteria for diagnosis of diabetes. Reference: Standards of Medical Care in Diabetes 2016, [place] Diabetes Association. Diabetes Care. 2016.39(Suppl 1). Performed By: #### 2 4323-8, LIPNF ####[facility] LABCLIA [id number] [address] [address] [place] Potassium [Moles/Vol] 5.0 mmol/L Normal 3.7-5.1 [facility] Comment on above: Order Comment: Speci men Type: BLOOD SPECIMENOrdering Facility: [facility] Address: [address] [place] [address] Performed By: #### 2 4323-8, LIPNF ####[facility] LABCLIA [id number] [place] [id number] [place] Protein [Mass/Vol] 7.4 g/dL Normal 6.3-8.0 [facility] Comment on above: Order Comment: Speci men Type: BLOOD SPECIMENOrdering Facility: [facility] Address: [address] [place] [address] Performed By: #### 2 4323-8, LIPNF ####[facility] LABCLIA [id number] [place] [id number] [place] Sodium [Moles/Vol] 140 mmol/L Normal 136-144 [facility] Comment on above: Order Comment: Speci men Type: BLOOD SPECIMENOrdering Facility: [facility] Address: [address] [place] [address] Performed By: #### 2 4323-8, LIPNF ####[facility] LABCLIA [id number] [place] [id number] [place] Urea nitrogen [Mass/Vol] 18 mg/dL Normal 7-21 [facility] Comment on above: Order Comment: Speci men Type: BLOOD SPECIMENOrdering Facility: [facility] Address: [address] [place] [address] Performed By: #### 2 4323-8, LIPNF ####[facility] LABCLIA [id number] [address] [address] [place] HbA1c (Bld)on 10-06-2024 Average glucose Estimated from glycated hemoglobin (Bld) [Mass/Vol] 120 mg/dL Normal [facility] Comment on above: Order Comment: Efraín peck Type: BLOOD SPECIMENOrdering Facility: [facility] Address: [address] [place] [address] Result Comment: eAG: (Estimated average glucose) is a calculated value from HgbA1c and is account maintenance representative of the average blood glucose level in the last 2-3 month period. Performed By: #### 5 5454-3 ####[facility] LABCLIA [id number] [place] [address] [place] HbA1c (Bld) [Mass fraction] 5.8 % High 4.3-5.6 [facility] Comment on above: Order Comment: Efraín peck Type: BLOOD SPECIMENOrdering Facility: [facility] Address: [address] [place] [address] Result Comment: [place] Diabetes Association guidelines indicate that patients with HgbA1c in the range 5.7-6.4% are at increased risk for development of diabetes, and intervention by lifestyle modification may be beneficial. HgbA1c greater or equal to 6.5% is considered diagnostic of diabetes. Performed By: #### 5 5454-3 ####[facility] LABCLIA [id number] [address] OF [place] LIPID PANEL, NONFASTINGon Cholesterol [Mass/Vol] 187 mg/dL NINF - 200 mg/dL [facility] Comment on above: <200 mg/dL, Desirabl e 200-239 mg/dL, Borderline high >239 mg/dL, High HDL Cholesterol, Nonfasting 46 mg/dL 39 - PINF mg/dL [facility] Comment on above: 40-59 mg/dL, Accepta ble >59 mg/dL, High: Negative risk factor for coronary heart disease <40 mg/dL, Low: Positive risk factor for coronary heart disease Interpretation and review of laboratory results Abnormal [facility] LDL Cholesterol Calculated, Nonfasting 118 mg/dL High NINF - 100 mg/dL [facility] Comment on above: <100 mg/dL, Optimal 100-129 mg/dL, Near optimal/above optimal 130-159 mg/dL, Borderline high 160-189 mg/dL, High >189 mg/dL, Very high Secondary prevention optimal LDL Cholesterol levels are recommended to be <70 mg/dL LDL cholesterol is calculated using the Perrin-NIH equation. LDL/HDL Ratio, Nonfasting 2.57 mg/dL High NINF - 2.54 mg/dL [facility] Comment on above: Reference: 1. National Cholesterol Education Program ATP III Guideline At-A-Glance Quick Desk Reference: National Heart, Lung, and Blood [place]. National Institutes of Health. 2001: NIH Publication No. 01-3305. 2. An International Atherosclerosis Society position paper: global recommendations for the management of dyslipidemia: executive summary, Atherosclerosis. 2014: 232(2):410-413. Non HDL Cholesterol, Nonfasting 141 mg/dL High NINF - 130 mg/dL [facility] Comment on above: <130 mg/dL, Optimal 130-159 mg/dL, Near optimal/above optimal 160-189 mg/dL, Borderline high 190-219 mg/dL, High >219 mg/dL, Very high Secondary prevention optimal non HDL Cholesterol levels are recommended to be <100 mg/dL Total Chol/HDL Ratio, Nonfasting 4.07 mg/dL NINF - 5.10 mg/dL [facility] Triglycerides, Nonfasting 130 mg/dL NINF - 150 mg/dL [facility] Comment on above: <150 mg/dL, Normal 150-199 mg/dL, Borderline high 200-499 mg/dL, High >499 mg/dL, Very high VLDL Cholesterol, Nonfasting 22 mg/dL NINF - 30 mg/dL [facility] Cholesterol [Mass/Vol] 187 mg/dL Normal <200 [facility] Comment on above: Order Comment: Speci men Type: BLOOD SPECIMENOrdering Facility: [facility] Address: [address] [place] [address] Result Comment: <200 mg/dL, Desirable 200-239 mg/dL, Borderline high >239 mg/dL, High Performed By: #### 2 4323-8, LIPNF ####[facility] LABCLIA [id number] [place] [address] [place] HDL CHOLESTEROL, NF 46 mg/dL Normal >39 [facility] Comment on above: Order Comment: Efraín liv Type: BLOOD SPECIMENOrdering Facility: [facility] Address: [address] [place] [address] Result Comment: 40-5 9 mg/dL, Acceptable >59 mg/dL, High: Negative risk factor for coronary heart disease <40 mg/dL, Low: Positive risk factor for coronary heart disease Performed By: #### 2 4323-8, LIPNF ####[facility] LABCLIA [id number] [address] OF [facility] LDL CHOLESTEROL CALCULATED, NF 118 mg/dL High <100 [facility] Comment on above: Order Comment: Tyravitor peck Type: BLOOD SPECIMENOrdering Facility: [facility] Address: [address] [place] [address] Result Comment: <100 mg/dL, Optimal 100-129 mg/dL, Near optimal/above optimal 130-159 mg/dL, Borderline high 160-189 mg/dL, High >189 mg/dL, Very high Secondary prevention optimal LDL Cholesterol levels are recommended to be <70 mg/dL LDL cholesterol is calculated using the Perrin-NIH equation. Performed By: #### 2 4323-8, LIPNF ####[facility] LABIA [id number] [address] OF [place] LDL/HDL RATIO, NF 2.57 mg/dL High <2.54 [facility] Comment on above: Order Comment: Efraín peck Type: BLOOD SPECIMENOrdering Facility: [facility] Address: [address] [place] [address] Result Comment: Refe rence: 1. National Cholesterol Education Program ATP III Guideline At-A-Glance Quick Desk Reference: National Heart, Lung, and Blood Casco. National Institutes of Health. 2001: NIH Publication No. 01-3305. 2. An International Atherosclerosis Society position paper: global recommendations for the management of dyslipidemia: executive summary, Atherosclerosis. 2014: 232(2):410-413. Performed By: #### 2 4323-8, LIPNF ####[facility] LABCLIA [id number] [place] [address] [place] NON HDL CHOL, NF 141 mg/dL High <130 [facility] Comment on above: Order Comment: Speci men Type: BLOOD SPECIMENOrdering Facility: [facility] Address: [address] [place] [address] Result Comment: <130 mg/dL, Optimal 130-159 mg/dL, Near optimal/above optimal 160-189 mg/dL, Borderline high 190-219 mg/dL, High >219 mg/dL, Very high Secondary prevention optimal non HDL Cholesterol levels are recommended to be <100 mg/dL Performed By: #### 2 4323-8, LIPNF ####[facility] LABCLIA [id number] [place] [address] [place] T CHOL/HDL RATIO NF 4.07 mg/dL Normal <5.10 [facility] Comment on above: Order Comment: Speci men Type: BLOOD SPECIMENOrdering Facility: [facility] Address: [address] [place] [address] Performed By: #### 2 4323-8, LIPNF ####[facility] LABCLIA [id number] [place] [address] [place] TRIGLYCERIDES, NF 130 mg/dL Normal <150 [facility] Comment on above: Order Comment: Speci men Type: BLOOD SPECIMENOrdering Facility: [facility] Address: [address] [place] [address] Result Comment: <150 mg/dL, Normal 150-199 mg/dL, Borderline high 200-499 mg/dL, High >499 mg/dL, Very high Performed By: #### 2 4323-8, LIPNF ####[facility] LABCLIA [id number] [place] [address] [place] VLDL CHOLESTEROL, NF 22 mg/dL Normal <30 [facility] Comment on above: Order Comment: Speci men Type: BLOOD SPECIMENOrdering Facility: [facility] Address: [address] [place] [address] Performed By: #### 2 4323-8, LIPNF ####[facility] LABCLIA [id number] [address] [place] No Panel Informationon 10-06 [facility] CNOVSPon 07-14-2024 CNOVSP Visit (SP) Office (HEMAWS) LOVE PINO ([id number]) 1950 F TXT Date Time Provider Department 07/14/24 1:00 PM EFFIE VAZ During your visit today, we recorded the following information about you: Temperature Pulse Blood pressure Weight 98.5 degrees 93/minute 130/82 87 kg Effie Vaz APRN.SCRAP DROP ENGINEER 07/16/2024 10:22 AM Signed Chief Complaint Patient presents with: Established Patient HPI: Love Pino is a 74 year old female who presents here today for SCP/breast cancer. Per Dr. Dhaliwal's previous note: H/o [...] nuclear grade 2. ER >90%, strong and OR 60%, weak to moderate. HER2 quantified at [...] An additional 11 lymph nodes were negative. OV 04/16/2024: Received adjuvant radiation to the left breast. That was followed with 5 years of anastrozole completed 03/2021. Recent lumpectomy and sentinel lymph node biopsy for new right sided lobular carcinoma. NGS/biomarkers/wheat combine driver mutation analyses: Shannan genetic testing negative. RADIATION:05/25/24 - 06/12/24 Right breast Current therapy:Aromasin Began after radiation. No new concerns today. Appetite:Good. Stable. Energy level:Fair. Denies fevers or recent illness. Resp:denies cough or sob Cardiac:denies chest pain/palpitations GI:denies abd pain, n/v, moving bowels regularly :denies dysuria/hematuria Extrem:chronic L knee pain Endo:+hot flashes Probably three times a day. they do wake pt. up Neuro:denies symptoms of neuropathy Skin:denies rashes Heme:denies bleeding The ROS is otherwise negative. Past medical history, appointments, medications, allergies reviewed. No changes. EXAM: BP 130/82 Pulse 93 Temp 36.9 ?C (98.5 ?F) (Temporal) Wt 87 kg (191 lb 12.8 oz) LMP 01/27/2003 SpO2 95% BMI 34.85 kg/m? APPEARANCE Well appearing, alert, in no acute distress, well-hydrated, well nourished. HEART RRR with normal S1 and S2, no murmurs LUNG clear to auscultation BREAST FEMALE R radiation erythema, no mass/nodule b/l LYMPH NODES No cervical lymphadenopathy, No supraclavicular lymphadenopathy, and No axillary lymphadenopathy. ABDOMEN bowel sounds normoactive, soft, non-tender EXTREMITIES No edema NEURO Awake, alert and oriented x 3, Normal gait, and No involuntary motions. SKIN Skin color, texture, turgor normal, no suspicious rashes or lesions ASSESSMENT/PLAN: 1. Malignant neoplasm of overlapping sites of right breast in female, estrogen receptor positive (HCC) - ICD9: 174.8, V86.0, ICD10: C50.811, Z17.[address] Dhaliwal's previous note: Assessment: -New pT1c(m) pNX M0 ER/OR positive, HER2 negative invasive lobular carcinoma of the right breast. -History of a pT1 (1.9 cm; grade 2; LVI+) pN1a MX ER/OR positive HER2 negative stage IIA invasive ductal carcinoma the left breast. -Reviewed Oncotype DX. Plan up to 7 years exemestane. -Discussed bone health issues. Plan: -Scheduled to begin RT. -Rx for exemestane to start two weeks after completes radiation. -Check vit D. -DXA. -Dental clearance form provided. -Begin q 3 month Zometa in about 6 months--sooner if bone density worsened. -OV for SCP in about 2 months. - No concerning findings on exam. - Tolerating aromasin well. - Reviewed SCP with pt. Copies given. - Discussed follow up plan. - Reviewed bone density with pt. - Pt. would like to hold off on zometa for now. - Follow up with surgeon as scheduled. - Continue aromasin. - Follow up in 3-4 months. - Pt. aware to call office with any questions/concerns. The patient indicates understanding of these issues and agrees with the plan. All documentation from previous visit of 05/14/24-Dr. Dhaliwal was copied and pasted, documentation has been reviewed and edited as necessary for today's visit. Effie Vaz, BROOCH AND BRACELET MAKER.SCRAP DROP ENGINEER Allergies As of Date: 07/14/2024 Noted Allergy Reaction PENICILLIN 01/12/2016 10 - Anaphylaxis SULFA (SULFONAMIDE ANTIBIOTICS) 01/12/2016 9 - Itchin (more content not included)... Normal [facility] CNOVon 06-22-2024 CNOV Office Visit (BRSTMM ) LOVE PINO ([id number]) 1950 F TXT Date Time Provider Department 06/22/24 10:00 AM [facility] During your visit today, we recorded the following information about you: Pulse Respiration Blood pressure Weight 96/minute 14/minute 148/90 87.1 kg Remington Sung MD 06/22/2024 10:20 AM Signed Subjective: Marieda is here today for her second postoperative checkup after a right partial mastectomy on 04/01/2024 (2+ months). She is also status post treatment for left breast cancer in the remote past. Her current pathology showed clear margins. Because of a negative ultrasound, clinical exam, age, and favorable receptor status, we did not sample lymph nodes. She recently completed her radiation therapy. She will be starting exemestane on June 27. She did have genetic testing done and no actionable abnormalities were found. She has tolerated everything well thus far. Other than some subacute radiation changes to the skin of the right breast she is doing well. These changes are minimal. Her last screening mammogram was 01/03/2024 (preop). Objective: BP 148/90 Pulse 96 Resp 14 Wt 87.1 kg (192 lb) LMP 01/27/2003 BMI 34.89 kg/m? She has subacute changes of the skin of the right breast/chest wall from her radiation. This is most prominent on the areola, which is somewhat tender but none of the changes are severe. Her incision in the breast is healing without complication. Assessment: Uneventful postoperative course. Plan: I will see her back in 4 months. That will take us to her 6-month visit and then I will plan on seeing her every 3 months thereafter. Participation of a fellow, resident, medical student, or advanced practice provider student in performing the sensitive examination was discussed with the patient or authorized account maintenance representative. The patient or authorized account maintenance representative has agreed to proceed with the sensitive examination. (Sensitive examination includes inspection and/or palpation of the breasts, pelvis, prostate and anorectal regions) Remington Sung MD Allergies As of Date: 06/22/2024 Noted Allergy Reaction PENICILLIN 01/12/2016 10 - Anaphylaxis SULFA (SULFONAMIDE ANTIBIOTICS) 01/12/2016 9 - Itching Date Reviewed: 06/09/2024 Reviewed by: Bryanna Siu RN - Fully Assessed Reason for Visit: Breast Cancer [519] Primary Visit Diagnosis: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) [C50.411] Other Visit Diagnoses: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) [C50.412] Estrogen receptor positive status (ER+) [Z17.0] Personal history of malignant neoplasm of breast [Z85.3] Prescriptions as of 06/22/2024 - exemestane (AROMASIN) 25 mg tablet Take 1 tablet by mouth once daily. TAKE AFTER A MEAL. - acetaminophen (TYLENOL EXTRA STRENGTH) 500 mg tablet Take 500 mg by mouth every 8 hours as needed. - guaiFENesin (MUCINEX) 600 mg 12 hr tablet Take 1,200 mg by mouth once daily. LD 03/24 - Biotin 1 mg tab Take 1 tablet by mouth once daily. LD 03/24 - naproxen sodium (ALEVE ORAL) Take 1 tablet by mouth once daily. PT STATES WILL STOP TAKING ALEVE WITH LD BEING 03/26. - docusate sodium (COLACE ORAL) Take 1 tablet by mouth once daily. - CALCIUM CARBONATE (TUMS ORAL) Take 1-2 tablets by mouth once daily. LD 03/24 - Cholecalciferol, Vitamin D3, 50 mcg (2,000 unit) cap Take 1 capsule by mouth once daily. LD 03/24 - Vuuwtwrf-Ljmazil-Evrx-L utein tab Take 1 tablet by mouth once daily. LD 03/24 Problem List As Of Date 06/22/2024 Noted Resolved Breast cancer of upper-outer quadrant of left f*01/12/2016 Lymphedema of left upper extremity [I89.0] 05/14/2016 Malignant neoplasm of upper-outer quadrant of l*11/06/2016 Medicare annual wellness visit, subsequent [Z00*02/10/2019 Osteopenia, senile [M85.80] 02/10/2019 Venous insufficiency (chronic) (peripheral) [I8*03/09/2019 Elevated blood sugar [R73.9] 09/02/2020 Medication management [Z79.899] 09/02/2020 Cystocele, midline [N81.11] 09/02/2020 History of colonic polyps [Z86.0100] 10/28/2020 12/19/2020 Partial rectal prolapse [K62.3] 03/14/2021 Hemorrhoids [K64.9] 03/14/2021 Obesity, Class I, BMI 30-34.9 [E66.811] 04/03/2021 Rectocele [N81.6] 04/06/2021 Incomplete uterovaginal prolapse [N81.2] 04/06/2021 Mixed incontinence [N39.46] 05/12/2021 Advance directive discussed with patient [Z71.8*12/26/2021 Age-related osteoporosis without current pathol*05/20/2023 Primary malignant neoplasm of upper outer quadr*03/09/2024 Estrogen receptor positive status (ER+) [Z17.0] 03/09/2024 Personal history of malignant neoplasm of breas*03/09/2024 Preop testing [Z01.818] 03/30/2024 Disposition: Return in about 4 months (around 10/20/2024). Follow-up and Disposition History for Encounter Date Provider De (more content not included)... [facility] (HEMAWS) LOVE PINO ([id number]) 1950 F TXT Date Time Provider Department 06/22/24 IBRAHIMA DHALIWAL During your visit today, we recorded the following information about you: Ibrahima Dhaliwal DO 06/22/2024 6:00 AM Signed DXA shows osteoporosis. Start q 6 month BMP/Zometa once gets dental clearance. DO Rodrigo Darnell Pamela S, LPN 06/22/2024 8:31 AM Signed spoke with pt. Given information concerning DXA results. Information on Zometa mailed to pt. Pt. Would like for [facility] to contact her to go over the results of the DXA ( interpret what her scores mean and where is in the spectrum of Osteoporosis) MALIKA Mcginnis Darby, APRN.CNP 07/10/2024 11:52 AM Signed Will review with pt. at [facility] next week. Effie Vaz APRN.HANH Allergies As of Date: 06/22/2024 Noted Allergy Reaction PENICILLIN 01/12/2016 10 - Anaphylaxis SULFA (SULFONAMIDE ANTIBIOTICS) 01/12/2016 9 - Itching Date Reviewed: 06/09/2024 Reviewed by: Bryanna Siu RN - Fully Assessed Reason for Visit: Results [95] Prescriptions as of 07/10/2024 - exemestane (AROMASIN) 25 mg tablet Take 1 tablet by mouth once daily. TAKE AFTER A MEAL. - acetaminophen (TYLENOL EXTRA STRENGTH) 500 mg tablet Take 500 mg by mouth every 8 hours as needed. - guaiFENesin (MUCINEX) 600 mg 12 hr tablet Take 1,200 mg by mouth once daily. LD 03/24 - Biotin 1 mg tab Take 1 tablet by mouth once daily. LD 03/24 - naproxen sodium (ALEVE ORAL) Take 1 tablet by mouth once daily. PT STATES WILL STOP TAKING ALEVE WITH LD BEING 03/26. - docusate sodium (COLACE ORAL) Take 1 tablet by mouth once daily. - CALCIUM CARBONATE (TUMS ORAL) Take 1-2 tablets by mouth once daily. LD 03/24 - Cholecalciferol, Vitamin D3, 50 mcg (2,000 unit) cap Take 1 capsule by mouth once daily. LD 03/24 - Nkkvenbs-Ebuqzgr-Yaak-L utein tab Take 1 tablet by mouth once daily. LD 03/24 Problem List As Of Date 06/22/2024 Noted Resolved Breast cancer of upper-outer quadrant of left f*01/12/2016 Lymphedema of left upper extremity [I89.0] 05/14/2016 Malignant neoplasm of upper-outer quadrant of l*11/06/2016 Medicare annual wellness visit, subsequent [Z00*02/10/2019 Osteopenia, senile [M85.80] 02/10/2019 Venous insufficiency (chronic) (peripheral) [I8*03/09/2019 Elevated blood sugar [R73.9] 09/02/2020 Medication management [Z79.899] 09/02/2020 Cystocele, midline [N81.11] 09/02/2020 History of colonic polyps [Z86.0100] 10/28/2020 12/19/2020 Partial rectal prolapse [K62.3] 03/14/2021 Hemorrhoids [K64.9] 03/14/2021 Obesity, Class I, BMI 30-34.9 [E66.811] 04/03/2021 Rectocele [N81.6] 04/06/2021 Incomplete uterovaginal prolapse [N81.2] 04/06/2021 Mixed incontinence [N39.46] 05/12/2021 Advance directive discussed with patient [Z71.8*12/26/2021 Age-related osteoporosis without current pathol*05/20/2023 Primary malignant neoplasm of upper outer quadr*03/09/2024 Estrogen receptor positive status (ER+) [Z17.0] 03/09/2024 Personal history of malignant neoplasm of breas*03/09/2024 Preop testing [Z01.818] 03/30/2024 Encounter Status:Closed by LESVIA GIRARD on 07/10/24 Normal [facility] BD DXA - AXIAL SKELETONon BD DXA - AXIAL SKELETON * * *Final Report* * * DATE OF EXAM: Jun 18 2024 2:35PM DESIREE 0804 - BD DXA - AXIAL SKELETON / PROCEDURE REASON: multiple diagnoses * * * * Physician Interpretation * * * * EXAMINATION: DXA BONE DENSITOMETRY BD DXA - AXIAL SKELETON, BD DXA TRABECLR BONE SCORE (TBS) PATIENT DEMOGRAPHICS: Age: 73 years, Gender: Female SCANNER INFORMATION: DXA Model: Drive - [employer] [place] [id number] Date Scanned: 06/18/2024 2:35 PM CLINICAL HISTORY: DIAGNOSTIC History of vitamin D deficiency Disorder of bone, unspecified . RISK FACTORS FOR OSTEOPOROSIS AND ASSOCIATED FRACTURES REPORTED BY THIS PATIENT: Please refer to Bone Health Questionnaire in the EMR CURRENT THERAPY: Please refer to Bone Health Questionnaire in the EMR TECHNICAL LIMITATIONS: None RESULTS: Lumbar spine (L1, L2, L3, L4): 0.739 g/cm2, T-score -2.8, Z-score -0.6 Lumbar spine: 2020: 0.715 g/cm2 Statistically significant increase Right Femoral Neck: 0.840 g/cm2, T-score -0.1, Z-score 1.8 Right Femoral Neck: 2020: 0.784 g/cm2 Statistically significant increase Right Total Hip: 0.949 g/cm2, T-score 0.1, Z-score 1.7 Right Total Hip: 2020: 0.903 g/cm2 Statistically significant increase Left Femoral Neck: 0.790 g/cm2, T-score -0.5, Z-score 1.4 Left Femoral Neck: 2020: 0.812 g/cm2 No statistically significant change Left Total Hip: 0.920 g/cm2, T-score -0.2, Z-score 1.4 Left Total Hip: 2020: 0.937 g/cm2 No statistically significant change CHANGE IS STATISTICALLY SIGNIFICANT IN THE SPINE OR HIP IF GREATER THAN OR EQUAL TO 0.04 g/cm2 VERTEBRAL FRACTURE ASSESSMENT Not performed. TRABECULAR BONE ASSESSMENT TBS score: 1.208 Bone micro-architecture: Degraded (< or = 1.230) IMPRESSION: THE LOWEST T-SCORE IS -2.8 IN THE SPINE 1) DIAGNOSIS (based on BMD alone): OSTEOPOROSIS Caution: Medical conditions other than osteoporosis may cause low bone density, such as osteomalacia or renal osteodystrophy. Clinical correlation is necessary. 2) FRACTURE RISK (Based on TBS adjusted FRAX): 10-year absolute fracture risk: - major osteoporotic fracture = 8.3 % - hip fracture = 0.6 % - A diagnosis of Osteoporosis, a 10 year probability of hip fracture greater than or equal to 3% or a 10 year probability of any major osteoporosis-related fracture greater than or equal to 20% should be considered for treatment. - DXA scanner generated FRAX calculations may slightly differ from online FRAX calculations due to differences in software versions. - All recommendations and calculations are to be considered as guidelines and should not replace sound clinical judgement - Caution: Fracture risk may be increased independent of BMD in patients with corticosteroid use, age greater than 65 years, or a history of prior fragility fracture. RECOMMENDATIONS: Follow-up in 2 years or as clinically indicated. Patients that are taking corticosteroids, are transplant recipients or have hyperparathyroidism should have annual follow-up. Follow-up scans should always be done on the same machine for accurate comparison. FOR MORE INFORMATION ABOUT DIAGNOSIS AND TREATMENT: [facility] for Osteoporosis and Metabolic Bone Disease:? [email or web address].org/arthritis/o steo National Osteoporosis Foundation:? www.nof.org International Society of Clinical Densitometry www.iscd.org Tube Closing Machine Operator: JACE Transcribe Date/Time: Jun 22 2024 5:22A Dictated by : RADHA CURTIS MD This examination was interpreted and the report reviewed and electronically signed by: RADHA CURTIS MD on Jun 22 2024 5:26AM EST [id number] -2.8 Normal [facility] BD DXA TRABECLR BONE SCORE ( TBS)on 06-18-2024 BD DXA TRABECLR BONE SCORE (TBS) * * *Final Report* * * DATE OF EXAM: Jun 18 2024 2:35PM [id number] - BD DXA TRABECLR BONE SCORE (TBS) / PROCEDURE REASON: multiple diagnoses * * * * Physician Interpretation * * * * EXAMINATION: DXA BONE DENSITOMETRY BD DXA - AXIAL SKELETON, BD DXA TRABECLR BONE SCORE (TBS) PATIENT DEMOGRAPHICS: Age: 73 years, Gender: Female SCANNER INFORMATION: DXA Model: Drive - [employer] [id number] Date Scanned: 06/18/2024 2:35 PM CLINICAL HISTORY: DIAGNOSTIC History of vitamin D deficiency Disorder of bone, unspecified . RISK FACTORS FOR OSTEOPOROSIS AND ASSOCIATED FRACTURES REPORTED BY THIS PATIENT: Please refer to Bone Health Questionnaire in the EMR CURRENT THERAPY: Please refer to Bone Health Questionnaire in the EMR TECHNICAL LIMITATIONS: None RESULTS: Lumbar spine (L1, L2, L3, L4): 0.739 g/cm2, T-score -2.8, Z-score -0.6 Lumbar spine: 2020: 0.715 g/cm2 Statistically significant increase Right Femoral Neck: 0.840 g/cm2, T-score -0.1, Z-score 1.8 Right Femoral Neck: 2020: 0.784 g/cm2 Statistically significant increase Right Total Hip: 0.949 g/cm2, T-score 0.1, Z-score 1.7 Right Total Hip: 2020: 0.903 g/cm2 Statistically significant increase Left Femoral Neck: 0.790 g/cm2, T-score -0.5, Z-score 1.4 Left Femoral Neck: 2020: 0.812 g/cm2 No statistically significant change Left Total Hip: 0.920 g/cm2, T-score -0.2, Z-score 1.4 Left Total Hip: 2020: 0.937 g/cm2 No statistically significant change CHANGE IS STATISTICALLY SIGNIFICANT IN THE SPINE OR HIP IF GREATER THAN OR EQUAL TO 0.04 g/cm2 VERTEBRAL FRACTURE ASSESSMENT Not performed. TRABECULAR BONE ASSESSMENT TBS score: 1.208 Bone micro-architecture: Degraded (< or = 1.230) IMPRESSION: THE LOWEST T-SCORE IS -2.8 IN THE SPINE 1) DIAGNOSIS (based on BMD alone): OSTEOPOROSIS Caution: Medical conditions other than osteoporosis may cause low bone density, such as osteomalacia or renal osteodystrophy. Clinical correlation is necessary. 2) FRACTURE RISK (Based on TBS adjusted FRAX): 10-year absolute fracture risk: - major osteoporotic fracture = 8.3 % - hip fracture = 0.6 % - A diagnosis of Osteoporosis, a 10 year probability of hip fracture greater than or equal to 3% or a 10 year probability of any major osteoporosis-related fracture greater than or equal to 20% should be considered for treatment. - DXA scanner generated FRAX calculations may slightly differ from online FRAX calculations due to differences in software versions. - All recommendations and calculations are to be considered as guidelines and should not replace sound clinical judgement - Caution: Fracture risk may be increased independent of BMD in patients with corticosteroid use, age greater than 65 years, or a history of prior fragility fracture. RECOMMENDATIONS: Follow-up in 2 years or as clinically indicated. Patients that are taking corticosteroids, are transplant recipients or have hyperparathyroidism should have annual follow-up. Follow-up scans should always be done on the same machine for accurate comparison. FOR MORE INFORMATION ABOUT DIAGNOSIS AND TREATMENT: [facility] for Osteoporosis and Metabolic Bone Disease:? www.ccf.org/arthritis/o steo National Osteoporosis Foundation:? www.nof.org International Society of Clinical Densitometry www.iscd.org Tube Closing Machine Operator: JACE Transcribe Date/Time: Jun 22 2024 5:22A Dictated by : RADHA CURTIS MD This examination was interpreted and the report reviewed and electronically signed by: RADHA CURTIS MD on Jun 22 2024 5:26AM EST [id number] -2.8 Normal [facility] CNOVon 06-09-2024 CNOV Office Visit (RADTWS ) LOVE PINO ([id number]) 1950 F TXT Date Time Provider Department 06/09/24 9:45 AM JUAN LOPEZ During your visit today, we recorded the following information about you: Temperature Pulse Blood pressure 98.7 degrees 84/minute 120/79 Bryanna Siu RN 06/09/2024 10:13 AM Signed Radiation Therapy - Nursing Note (OTV) PATIENT NAME: Love Pino PATIENT June 09, 2024 [facility] FACILITY/LOCATION: [facility] NOTE TYPE: BREAST Subjective Data see pain assessment, also some headache Additional Data Do you want to see a Hot Die Picker? No Status: Post-menopausal. Stress Scale: On a scale of 0 to 10, what number best describes how much distress you have experienced in the past week?(0 being no distress and 10 being extreme distress) 1 Social work notified: Pt denied need to see social worker delinquency prevention at this time. Nursing Assessment Fatigue: increased fatigue over baseline but not altering normal activities Appetite: good Nutritional Intake: Regular oral intake. Weight Gain/Loss: Not applicable Ambulatory weight history: Last 6 Encounter Wt Readings: Date: Wt: 05/14/2024 87.1 kg (192 lb) 05/07/2024 86.9 kg (191 lb 8 oz) 04/30/2024 86.6 kg (190 lb 14.4 oz) 04/16/2024 86.9 kg (191 lb 8 oz) 03/18/2024 86.3 kg (190 lb 4.1 oz) 03/09/2024 86.6 kg (190 lb 14.4 oz) Nausea:None Vomiting: None Bowel Function: normal bowel movements Erythema/Hyperpigmentat ion:mild Desquamation:none Rash:none Skin Care: Aquaphor Skin Sensation: mild burning Focused Assessment BREAST: Lymphedema Assessment: Is the patient noting any swelling? No. SIGNED by: COLT Pandya Daesung, MD 06/09/2024 10:13 AM Signed Radiation Oncology - On Treatment Review (OTR) Note PATIENT NAME: Love Pino PATIENT DIAGNOSIS: Stage IA, pT1c (m), grade 2 invasive lobular carcinoma of the right breast s/p right breast lumpectomy on 03/30/24. It's ER positive (90%, strong), OR positive (95%, strong) and Her2 0. COURSE: post-operative AREA TREATED: Right breast CURRENT DOSE: 3204 cGy in 12 fx PLANNED DOSE: 4005 cGy in 15 fx Status: Post-menopausal SUBJECTIVE: She has mild tenderness over the right breast nipple area. EXAM: KPS: 90 General Appearance: Alert and oriented. No acute distress. Radiation dermatitis: Mild erythema IMAGING/LAB RESULTS: None Treatment chart checked: Yes Patient treatment site reviewed and verified:Yes Port films reviewed and current:Yes Medications started: None ASSESSMENT/PLAN: Clinically stable. Toxicity within expected parameters. Continue radiation treatment as planned. Juan Lopez MD Allergies As of Date: 06/09/2024 Noted Allergy Reaction PENICILLIN 01/12/2016 10 - Anaphylaxis SULFA (SULFONAMIDE ANTIBIOTICS) 01/12/2016 9 - Itching Date Reviewed: 06/09/2024 Reviewed by: Bryanna Siu RN - Fully Assessed Reason for Visit: Radiotherapy On-treatment Visit [1722] Primary Visit Diagnosis: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) [C50.411] Prescriptions as of 06/09/2024 - exemestane (AROMASIN) 25 mg tablet Take 1 tablet by mouth once daily. TAKE AFTER A MEAL. - acetaminophen (TYLENOL EXTRA STRENGTH) 500 mg tablet Take 500 mg by mouth every 8 hours as needed. - guaiFENesin (MUCINEX) 600 mg 12 hr tablet Take 1,200 mg by mouth once daily. LD 03/24 - Biotin 1 mg tab Take 1 tablet by mouth once daily. LD 03/24 - naproxen sodium (ALEVE ORAL) Take 1 tablet by mouth once daily. PT STATES WILL STOP TAKING ALEVE WITH LD BEING 03/26. - docusate sodium (COLACE ORAL) Take 1 tablet by mouth once daily. - CALCIUM CARBONATE (TUMS ORAL) Take 1-2 tablets by mouth once daily. LD 03/24 - Cholecalciferol, Vitamin D3, 50 mcg (2,000 unit) cap Take 1 capsule by mouth once daily. LD 03/24 - Indaqzlm-Omlfopd-Bmtq-L utein tab Take 1 tablet by mouth once daily. LD 03/24 Problem List As Of Date 06/09/2024 Noted Resolved Breast cancer of upper-outer quadrant of left f*01/12/2016 Lymphedema of left upper extremity [I89.0] 05/14/2016 Malignant neoplasm of upper-outer quadrant of l*11/06/2016 Medicare annual wellness visit, subsequent [Z00*02/10/2019 Osteopenia, senile [M85.80] 02/10/2019 Venous insufficiency (chronic) (peripheral) [I8*03/09/2019 Elevated blood sugar [R73.9] 09/02/2020 Medication management [Z79.899] 09/02/2020 Cystocele, midline [N81.11] 09/02/2020 History of colonic polyps [Z86.0100] 10/28/2020 12/19/2020 Partial rectal prolapse [K62.3] 03/14/2021 Hemorrhoids [K64.9] 03/14/2021 Obesity, Class I, BMI 30-34.9 [E66.811] 04/03/2021 Rectocele [N81.6] 04/06/2021 Incomplete uterovaginal prolapse [N81.2] 04/06/2021 Mixed incontinence [N39.46] 05/12/2021 Advance directive discussed with patient [Z71.8*12/26/2021 Ag (more content not included)... Normal [facility] CNOVon 06-02-2024 CNOV Office Visit (RADTWS ) LOVE PINO ([id number]) 1950 F TXT Date Time Provider Department 06/02/24 9:45 AM JUAN LOPEZ RADTWS During your visit today, we recorded the following information about you: Temperature Pulse Blood pressure 98.6 degrees 87/minute 117/84 Bryanna Siu, RN 06/02/2024 9:40 AM Signed Radiation Therapy - Nursing Note (OTV) PATIENT NAME: Love Pino PATIENT June 02, 2024 [facility] FACILITY/LOCATION: [place] NURSING NOTE TYPE: BREAST Subjective Data some tenderness in right nipple area Additional Data Do you want to see a Hot Die Picker? No Status: Post-menopausal. Stress Scale: On a scale of 0 to 10, what number best describes how much distress you have experienced in the past week?(0 being no distress and 10 being extreme distress) 2 Social work notified: Pt denied need to see social worker delinquency prevention at this time. Nursing Assessment Fatigue: increased fatigue over baseline but not altering normal activities Appetite: good Nutritional Intake: Regular oral intake. Weight Gain/Loss: No Ambulatory weight history: Last 6 Encounter Wt Readings: Date: Wt: 05/14/2024 87.1 kg (192 lb) 05/07/2024 86.9 kg (191 lb 8 oz) 04/30/2024 86.6 kg (190 lb 14.4 oz) 04/16/2024 86.9 kg (191 lb 8 oz) 03/18/2024 86.3 kg (190 lb 4.1 oz) 03/09/2024 86.6 kg (190 lb 14.4 oz) Nausea:None Vomiting: None Bowel Function: normal bowel movements Erythema/Hyperpigmentat ion:none Desquamation:none Rash:none Skin Care: Aquaphor Skin Sensation: Within Normal Limits Focused Assessment BREAST: Lymphedema Assessment: Is the patient noting any swelling? No. SIGNED by: COLT Pandya Daesung, MD 06/02/2024 9:40 AM Signed Radiation Oncology - On Treatment Review (OTR) Note PATIENT NAME: Love Pino PATIENT DIAGNOSIS: Stage IA, pT1c (m), grade 2 invasive lobular carcinoma of the right breast s/p right breast lumpectomy on 03/30/24. It's ER positive (90%, strong), OR positive (95%, strong) and Her2 0. COURSE: post-operative AREA TREATED: Right breast CURRENT DOSE: 1869 cGy in 7 fx PLANNED DOSE: 4005 cGy in 15 fx Status: Post-menopausal SUBJECTIVE: She has mild tenderness over the right breast nipple area. EXAM: KPS: 90 General Appearance: Alert and oriented. No acute distress. Radiation dermatitis: Slight erythema IMAGING/LAB RESULTS: None Treatment chart checked: Yes Patient treatment site reviewed and verified:Yes Port films reviewed and current:Yes Medications started: None ASSESSMENT/PLAN: Clinically stable. Toxicity within expected parameters. Continue radiation treatment as planned. Juan Lopez MD Allergies As of Date: 06/02/2024 Noted Allergy Reaction PENICILLIN 01/12/2016 10 - Anaphylaxis SULFA (SULFONAMIDE ANTIBIOTICS) 01/12/2016 9 - Itching Date Reviewed: 06/02/2024 Reviewed by: Bryanna Siu RN - Fully Assessed Reason for Visit: Radiotherapy On-treatment Visit [1722] Primary Visit Diagnosis: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) [C50.411] Prescriptions as of 06/02/2024 - exemestane (AROMASIN) 25 mg tablet Take 1 tablet by mouth once daily. TAKE AFTER A MEAL. - acetaminophen (TYLENOL EXTRA STRENGTH) 500 mg tablet Take 500 mg by mouth every 8 hours as needed. - guaiFENesin (MUCINEX) 600 mg 12 hr tablet Take 1,200 mg by mouth once daily. LD 03/24 - Biotin 1 mg tab Take 1 tablet by mouth once daily. LD 03/24 - naproxen sodium (ALEVE ORAL) Take 1 tablet by mouth once daily. PT STATES WILL STOP TAKING ALEVE WITH LD BEING 03/26. - docusate sodium (COLACE ORAL) Take 1 tablet by mouth once daily. - CALCIUM CARBONATE (TUMS ORAL) Take 1-2 tablets by mouth once daily. LD 03/24 - Cholecalciferol, Vitamin D3, 50 mcg (2,000 unit) cap Take 1 capsule by mouth once daily. LD 03/24 - Iorthwtu-Povfjnm-Ubij-L utein tab Take 1 tablet by mouth once daily. LD 03/24 Problem List As Of Date 06/02/2024 Noted Resolved Breast cancer of upper-outer quadrant of left f*01/12/2016 Lymphedema of left upper extremity [I89.0] 05/14/2016 Malignant neoplasm of upper-outer quadrant of l*11/06/2016 Medicare annual wellness visit, subsequent [Z00*02/10/2019 Osteopenia, senile [M85.80] 02/10/2019 Venous insufficiency (chronic) (peripheral) [I8*03/09/2019 Elevated blood sugar [R73.9] 09/02/2020 Medication management [Z79.899] 09/02/2020 Cystocele, midline [N81.11] 09/02/2020 History of colonic polyps [Z86.0100] 10/28/2020 12/19/2020 Partial rectal prolapse [K62.3] 03/14/2021 Hemorrhoids [K64.9] 03/14/2021 Obesity, Class I, BMI 30-34.9 [E66.811] 04/03/2021 Rectocele [N81.6] 04/06/2021 Incomplete uterovaginal prolapse [N81.2] 04/06/2021 Mixed incontinence [N39.46] 05/12/2021 Advance directive discussed with patient [Z71.8*12/26/2021 Age-related os (more content not included)... Normal [facility] CNOVon 05-26-2024 CNOV Office Visit (RADTWS ) LOVE PINO ([id number]) 1950 F TXT Date Time Provider Department 05/26/24 9:45 AM JUAN LOPEZ During your visit today, we recorded the following information about you: Temperature Pulse Blood pressure 98.6 degrees 79/minute 122/85 Bryanna Siu RN 05/26/2024 9:50 AM Signed Radiation Therapy - Nursing Note (OTV) PATIENT NAME: Love Pino PATIENT May 26, 2024 [facility] FACILITY/LOCATION: [place] NURSING NOTE TYPE: BREAST Subjective Data no complaints Additional Data Do you want to see a Hot Die Picker? No Status: Post-menopausal. Stress Scale: On a scale of 0 to 10, what number best describes how much distress you have experienced in the past week?(0 being no distress and 10 being extreme distress) 1 Social work notified: Pt denied need to see social worker delinquency prevention at this time. Nursing Assessment Fatigue: none Appetite: good Nutritional Intake: Regular oral intake. Weight Gain/Loss: Not applicable Ambulatory weight history: Last 6 Encounter Wt Readings: Date: Wt: 05/14/2024 87.1 kg (192 lb) 05/07/2024 86.9 kg (191 lb 8 oz) 04/30/2024 86.6 kg (190 lb 14.4 oz) 04/16/2024 86.9 kg (191 lb 8 oz) 03/18/2024 86.3 kg (190 lb 4.1 oz) 03/09/2024 86.6 kg (190 lb 14.4 oz) Nausea:None Vomiting: None Bowel Function: normal bowel movements Erythema/Hyperpigmentat ion:none Desquamation:none Rash:none Skin Care: Aquaphor Skin Sensation: Within Normal Limits Focused Assessment BREAST: Lymphedema Assessment: Is the patient noting any swelling? No. SIGNED by: COLT Pandya Daesung, MD 05/26/2024 9:50 AM Signed Radiation Oncology - On Treatment Review (OTR) Note PATIENT NAME: Love Pino PATIENT DIAGNOSIS: Stage IA, pT1c (m), grade 2 invasive lobular carcinoma of the right breast s/p right breast lumpectomy on 03/30/24. It's ER positive (90%, strong), OR positive (95%, strong) and Her2 0. COURSE: post-operative AREA TREATED: Right breast CURRENT DOSE: 534 cGy in 2 fx PLANNED DOSE: 4005 cGy in 15 fx Status: Post-menopausal SUBJECTIVE: She is doing well without any specific new complaints. EXAM: KPS: 100 General Appearance: Alert and oriented. No acute distress. Radiation dermatitis: No IMAGING/LAB RESULTS: None Treatment chart checked: Yes Patient treatment site reviewed and verified:Yes Port films reviewed and current:Yes Medications started: None ASSESSMENT/PLAN: Clinically stable. No signs of toxicity. Continue radiation treatment as planned. Juan Lopez MD Allergies As of Date: 05/26/2024 Noted Allergy Reaction PENICILLIN 01/12/2016 10 - Anaphylaxis SULFA (SULFONAMIDE ANTIBIOTICS) 01/12/2016 9 - Itching Date Reviewed: 05/26/2024 Reviewed by: Bryanna Siu RN - Fully Assessed Reason for Visit: Radiotherapy On-treatment Visit [1722] Primary Visit Diagnosis: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) [C50.411] Prescriptions as of 05/26/2024 - exemestane (AROMASIN) 25 mg tablet Take 1 tablet by mouth once daily. TAKE AFTER A MEAL. - acetaminophen (TYLENOL EXTRA STRENGTH) 500 mg tablet Take 500 mg by mouth every 8 hours as needed. - guaiFENesin (MUCINEX) 600 mg 12 hr tablet Take 1,200 mg by mouth once daily. LD 03/24 - Biotin 1 mg tab Take 1 tablet by mouth once daily. LD 03/24 - naproxen sodium (ALEVE ORAL) Take 1 tablet by mouth once daily. PT STATES WILL STOP TAKING ALEVE WITH LD BEING 03/26. - docusate sodium (COLACE ORAL) Take 1 tablet by mouth once daily. - CALCIUM CARBONATE (TUMS ORAL) Take 1-2 tablets by mouth once daily. LD 03/24 - Cholecalciferol, Vitamin D3, 50 mcg (2,000 unit) cap Take 1 capsule by mouth once daily. LD 03/24 - Zembkeqy-Hcfjdce-Vddr-L utein tab Take 1 tablet by mouth once daily. LD 03/24 Problem List As Of Date 05/26/2024 Noted Resolved Breast cancer of upper-outer quadrant of left f*01/12/2016 Lymphedema of left upper extremity [I89.0] 05/14/2016 Malignant neoplasm of upper-outer quadrant of l*11/06/2016 Medicare annual wellness visit, subsequent [Z00*02/10/2019 Osteopenia, senile [M85.80] 02/10/2019 Venous insufficiency (chronic) (peripheral) [I8*03/09/2019 Elevated blood sugar [R73.9] 09/02/2020 Medication management [Z79.899] 09/02/2020 Cystocele, midline [N81.11] 09/02/2020 History of colonic polyps [Z86.0100] 10/28/2020 12/19/2020 Partial rectal prolapse [K62.3] 03/14/2021 Hemorrhoids [K64.9] 03/14/2021 Obesity, Class I, BMI 30-34.9 [E66.811] 04/03/2021 Rectocele [N81.6] 04/06/2021 Incomplete uterovaginal prolapse [N81.2] 04/06/2021 Mixed incontinence [N39.46] 05/12/2021 Advance directive discussed with patient [Z71.8*12/26/2021 Age-related osteoporosis without current pathol*05/20/2023 Primary malignant neoplasm of upper outer quadr* (more content not included)... Normal [facility] CNNURSEon 05-20-2024 CNNURSE Nurse Visit (RADTWS) LOVE PINO ([id number]) 1950 F TXT Date Time Provider Department 05/20/24 1:30 PM [facility] During your visit today, we recorded the following information about you: Bryanna Siu RN 05/20/2024 2:43 PM Signed Radiation Therapy - Patient Education Note PATIENT NAME: Love Pino PATIENT May 20, 2024 [facility] FACILITY/LOCATION: [place] READINESS TO LEARN Cognitive Ability: Alert and oriented Motivation to learn: Eager Family Support: Moderate - Family present but overwhelmed Instruction provide to: Patient and Family member Patient learns best by: Individual Instruction Written Instruction - Hand-outs Verbal Instruction Factors effecting learning: None Physical limitations effecting learning: None LEARNING RESPONSE Diagnosis: Pt simulated today for radiation therapy to left breast. Education Topic/Teaching Points: Radiation therapy, Side effects, and OTV: Method of instruction: Teach Back skin care Individual instruction Written instruction/Handouts Verbal instruction Patient /Family response: Patient and family verbalized understanding of radiation treatments, side effects, OTV, and transportation. Follow-up plan: Complete - No need for follow-up Contact information given. Supplemental material: Informational handouts on Deodorant, Fatigue, and Skin changes. Referral (recommendation): None, Pt denied need for social work, van service, and junior high school principal. Patient has an Onbody or Implanted device: No Signed by: Bryanna Siu RN Allergies As of Date: 05/20/2024 Noted Allergy Reaction PENICILLIN 01/12/2016 10 - Anaphylaxis SULFA (SULFONAMIDE ANTIBIOTICS) 01/12/2016 9 - Itching Date Reviewed: 05/14/2024 Reviewed by: Irlanda Ramirez LPN - Fully Assessed Reason for Visit: Patient Education [91] Primary Visit Diagnosis: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) [C50.411] Prescriptions as of 05/20/2024 - exemestane (AROMASIN) 25 mg tablet Take 1 tablet by mouth once daily. TAKE AFTER A MEAL. - acetaminophen (TYLENOL EXTRA STRENGTH) 500 mg tablet Take 500 mg by mouth every 8 hours as needed. - guaiFENesin (MUCINEX) 600 mg 12 hr tablet Take 1,200 mg by mouth once daily. LD 03/24 - Biotin 1 mg tab Take 1 tablet by mouth once daily. LD 03/24 - naproxen sodium (ALEVE ORAL) Take 1 tablet by mouth once daily. PT STATES WILL STOP TAKING ALEVE WITH LD BEING 03/26. - docusate sodium (COLACE ORAL) Take 1 tablet by mouth once daily. - CALCIUM CARBONATE (TUMS ORAL) Take 1-2 tablets by mouth once daily. LD 03/24 - Cholecalciferol, Vitamin D3, 50 mcg (2,000 unit) cap Take 1 capsule by mouth once daily. LD 03/24 - Olpvcqzz-Nnfearb-Qohq-L utein tab Take 1 tablet by mouth once daily. LD 03/24 Problem List As Of Date 05/20/2024 Noted Resolved Breast cancer of upper-outer quadrant of left f*01/12/2016 Lymphedema of left upper extremity [I89.0] 05/14/2016 Malignant neoplasm of upper-outer quadrant of l*11/06/2016 Medicare annual wellness visit, subsequent [Z00*02/10/2019 Osteopenia, senile [M85.80] 02/10/2019 Venous insufficiency (chronic) (peripheral) [I8*03/09/2019 Elevated blood sugar [R73.9] 09/02/2020 Medication management [Z79.899] 09/02/2020 Cystocele, midline [N81.11] 09/02/2020 History of colonic polyps [Z86.0100] 10/28/2020 12/19/2020 Partial rectal prolapse [K62.3] 03/14/2021 Hemorrhoids [K64.9] 03/14/2021 Obesity, Class I, BMI 30-34.9 [E66.811] 04/03/2021 Rectocele [N81.6] 04/06/2021 Incomplete uterovaginal prolapse [N81.2] 04/06/2021 Mixed incontinence [N39.46] 05/12/2021 Advance directive discussed with patient [Z71.8*12/26/2021 Age-related osteoporosis without current pathol*05/20/2023 Primary malignant neoplasm of upper outer quadr*03/09/2024 Estrogen receptor positive status (ER+) [Z17.0] 03/09/2024 Personal history of malignant neoplasm of breas*03/09/2024 Preop testing [Z01.818] 03/30/2024 Encounter Status:Closed by BRYANNA SIU on 05/20/24 Normal [facility](OH[facility] 25-hydroxyvitamin D3 [Mass/Vol] 42.1 ng/mL Normal 31.0-80.0 [facility] Comment on above: Order Comment: Speci men Type: BLOOD SPECIMENOrdering Facility: [facility] Address: [address] [place] [address] Performed By: #### 1 [id number] ####[facility] LABCLIA [id number] [place] [address] [place] CNOVSPon 05-14-2024 CNOVSP Visit (SP) Office (KASANDRA) LOVE PINO ([id number]) 1950 F TXT Date Time Provider Department 05/14/24 12:10 PM IBRAHIMA DHALIWAL During your visit today, we recorded the following information about you: Temperature Pulse Blood pressure Weight 98.2 degrees 95/minute 132/86 87.1 kg Irlanda RamirezMALIKA 05/14/2024 4:07 PM Signed Est. Pt. 6-8 week F/U Irlanda Ramirez JIG OPERATOR AnanthIbrahima adler DO 05/14/2024 4:07 PM Signed Diagnosis: 1) Breast cancer. HPI: Patient is a 73 yo female with past medical history significant only for arthritis. She was found to have an [...] nuclear grade 2. ER >90%, strong and OR 60%, weak to moderate. HER2 quantified at [...] An additional 11 lymph nodes were negative. OV 04/16/2024: Received adjuvant radiation to the left breast. That was followed with 5 years of anastrozole completed 03/2021. Recent lumpectomy and sentinel lymph node biopsy for new right sided lobular carcinoma. Pathology reviewed. Presents for ongoing oncologic management. Interim history: PMH, medications, social history and family history and allergies personally reviewed by me today. Any changes documented in appropriate section. ROS: Constitutional: Denies episodes of fever and night sweats. Not significantly fatigued. Neuro: Denies ALEXANDER, vertigo, dizziness and imbalance. No symptoms of neuropathy. HEENT: No recent change in voice, vision or hearing. Resp: Denies cough, wheeze and hemoptysis. Denies shortness of breath at rest. Denies PANCHAL. CVS: Denies exertional chest pain, PND, orthopnea and LE edema. GI: Denies dysgeusia. Denies symptoms of stomatitis. Denies dysphagia and odynophagia. Denies reflux, n/v, change in bowel habits and abdominal pain. No symptoms of stomatitis. : Denies dysuria or gross hematuria. No symptoms of bladder outlet obstruction. Endo: Denies hot flashes. Denies polyuria and polydipsia. Denies heat and cold intolerance. Musculoskeletal: Denies bone, back, joint and muscular pain. Derm: Denies rash. Heme: Denies unusual bleeding and unexplained bruising. Psych: Normal mood. PHYSICAL EXAM: Vitals: Blood pressure 132/86, pulse 95, temperature 36.8 ?C (98.2 ?F), weight 87.1 kg (192 lb), last menstrual period 01/27/2003, SpO2 97%. Well-appearing and in no acute distress. EYES: Sclerae are anicteric bilaterally. NGS/biomarkers/wheat combine driver mutation analyses: Ambry genetic testing negative. ASSESSMENT/PLAN: (C50.412) Breast cancer of upper-outer quadrant of left female breast (HCC) (primary encounter diagnosis) Assessment: -New pT1c(m) pNX M0 ER/OR positive, HER2 negative invasive lobular carcinoma of the right breast. -History of a pT1 (1.9 cm; grade 2; LVI+) pN1a MX ER/OR positive HER2 negative stage IIA invasive ductal carcinoma the left breast. -Reviewed Oncotype DX. Plan up to 7 years exemestane. -Discussed bone health issues. Plan: -Scheduled to begin RT. -Rx for exemestane to start two weeks after completes radiation. -Check vit D. -DXA. -Dental clearance form provided. -Begin q 3 month Zometa in about 6 months--sooner if bone density worsened. -OV for SCP in about 2 months. Portions of this documentation were copied and pasted from my previous office visit note dated 04/06/2024 in order to provide a cohesive continuity of the history. The note has been reviewed and edited and updated as necessary. I spent a total of 25 minutes on the date of the service which included preparing to see the patient, [id number] patient care, completing clinical documentation, counseling and educating the patient/family/caregive r, ordering medications, tests, or procedures, communicating with other HCPs (not separately reported), and communicating results to the patient/family/caregive r. Ibrahima Dhaliwal, DO Allergies As of Date: 05/14/2024 Noted Allergy Reaction PENICILLIN 01/12/2016 10 - Anaphylaxis SULFA (SULFONAMIDE ANTIBIOTICS) 01/12/2016 9 - Itching Date Reviewed: 05/14/2024 Re (more content not included)... Normal [facility] CNPNon 05-14-2024 CNPN Telephone (HEMAWS) LOVE PINO ([id number]) 1950 F TXT Date Time Provider Department 05/14/24 IBRAHIMA DHALIWAL During your visit today, we recorded the following information about you: Adilia Lea 05/14/2024 3:20 PM Signed Patient called to schedule Bone Density. Please place order if needed. Lesvia Girard LPN 05/14/2024 3:22 PM Signed Order pended earlier today under OV. Please file. MALIKA Alejandro Paul A, DO 05/14/2024 4:07 PM Signed Filed. Adilia Lea 05/15/2024 8:07 AM Signed Patient informed and will schedule Allergies As of Date: 05/14/2024 Noted Allergy Reaction PENICILLIN 01/12/2016 10 - Anaphylaxis SULFA (SULFONAMIDE ANTIBIOTICS) 01/12/2016 9 - Itching Date Reviewed: 05/14/2024 Reviewed by: Irlanda Ramirez LPN - Fully Assessed Reason for Visit: Orders [681] Prescriptions as of 05/15/2024 - exemestane (AROMASIN) 25 mg tablet Take 1 tablet by mouth once daily. TAKE AFTER A MEAL. - acetaminophen (TYLENOL EXTRA STRENGTH) 500 mg tablet Take 500 mg by mouth every 8 hours as needed. - guaiFENesin (MUCINEX) 600 mg 12 hr tablet Take 1,200 mg by mouth once daily. LD 03/24 - Biotin 1 mg tab Take 1 tablet by mouth once daily. LD 03/24 - naproxen sodium (ALEVE ORAL) Take 1 tablet by mouth once daily. PT STATES WILL STOP TAKING ALEVE WITH LD BEING 03/26. - docusate sodium (COLACE ORAL) Take 1 tablet by mouth once daily. - CALCIUM CARBONATE (TUMS ORAL) Take 1-2 tablets by mouth once daily. LD 03/24 - Cholecalciferol, Vitamin D3, 50 mcg (2,000 unit) cap Take 1 capsule by mouth once daily. LD 03/24 - Pozdpeik-Zpguwii-Wter-L utein tab Take 1 tablet by mouth once daily. LD 03/24 Problem List As Of Date 05/14/2024 Noted Resolved Breast cancer of upper-outer quadrant of left f*01/12/2016 Lymphedema of left upper extremity [I89.0] 05/14/2016 Malignant neoplasm of upper-outer quadrant of l*11/06/2016 Medicare annual wellness visit, subsequent [Z00*02/10/2019 Osteopenia, senile [M85.80] 02/10/2019 Venous insufficiency (chronic) (peripheral) [I8*03/09/2019 Elevated blood sugar [R73.9] 09/02/2020 Medication management [Z79.899] 09/02/2020 Cystocele, midline [N81.11] 09/02/2020 History of colonic polyps [Z86.0100] 10/28/2020 12/19/2020 Partial rectal prolapse [K62.3] 03/14/2021 Hemorrhoids [K64.9] 03/14/2021 Obesity, Class I, BMI 30-34.9 [E66.811] 04/03/2021 Rectocele [N81.6] 04/06/2021 Incomplete uterovaginal prolapse [N81.2] 04/06/2021 Mixed incontinence [N39.46] 05/12/2021 Advance directive discussed with patient [Z71.8*12/26/2021 Age-related osteoporosis without current pathol*05/20/2023 Primary malignant neoplasm of upper outer quadr*03/09/2024 Estrogen receptor positive status (ER+) [Z17.0] 03/09/2024 Personal history of malignant neoplasm of breas*03/09/2024 Preop testing [Z01.818] 03/30/2024 Encounter Status:Closed by DOUP, LEANN on 05/14/24 [facility] CNOVon 05-07-2024 CNOV Office Visit (RADTWS ) LOVE PINO ([id number]) 1950 F TXT Date Time Provider Department 05/07/24 10:30 AM JUAN LOPEZ RADTWS During your visit today, we recorded the following information about you: Temperature Pulse Respiration Blood pressure 97.9 degrees 76/minute 15/minute 125/65 Weight 86.9 kg Juan Lopez MD 05/11/2024 4:08 PM Signed Radiation Oncology - New Patient/Consult Note PATIENT NAME: Love Pino PATIENT REQUESTING PROVIDER: Dr. Ibrahima Dhaliwal DIAGNOSIS: Stage IA, pT1c (m), grade 2 invasive lobular carcinoma of the right breast s/p right breast lumpectomy on 03/30/24. It's ER positive (90%, strong), OR positive (95%, strong) and Her2 0. HPI: 73 year old female who presents with above diagnosis, for an opinion regarding the role of radiation therapy in the management of the patient's disease. Final recommendations will be communicated back to the requesting physician by way of the shared medical record, or letter to requesting physician via US mail. 73 year old woman who has history of stage II, T1cN1, invasive ductal carcinoma of the left breast in 2016 treated with left breast lumpectomy, sentinel node biopsy followed by left axillary node dissection. It's ER positive (>90%, strong), OR positive (week to moderate, 60%) and Her2/garry 1+, s/p radiation treatment finished on 04/04/16. She was then on Arimidex. She had an abnormal screening mammogram on 01/06/24. It showed an indeterminate asymmetry in the right breast. Diagnostic right mammogram on 01/29/24 showed an isodense, irregular mass measuring 0.7 cm with spiculated margins in the superior right breast. US showed an irregular not parallel irregular mass with indistinct margins measuring 0.6 cm in the middle depth region of the right breast at 11 o'clock. Core biopsy of the right breast lesion on 02/24/24 showed grade 2 invasive lobular carcinoma. It's ER positive (90%, strong), OR positive (95%, strong) and Her2 0. Right axillary US on 03/17/24 was negative for suspicious node. She underwent needle localization and right breast lumpectomy on 03/30/24. Pathology showed two foci of invasive lobular carcinoma measuring 1.1 x 1.1 x 0.8 cm and 0.7 x 0.5 x 0.4 cm Two nodules were about 4 cm apart. Surgical margins were negative with the closest margin was 1 mm. There was focal perineural invasion. ALLERGIES Allergen Reactions Penicillin Anaphylaxis Sulfa (Sulfonamide * Itching Current Outpatient Medications on File Prior to Visit Medication Sig acetaminophen (TYLENOL EXTRA STRENGTH) 500 mg tablet Take 500 mg by mouth every 8 hours as needed. guaiFENesin (MUCINEX) 600 mg 12 hr tablet Take 1,200 mg by mouth once daily. LD 03/24 Biotin 1 mg tab Take 1 tablet by mouth once daily. LD 03/24 naproxen sodium (ALEVE ORAL) Take 1 tablet by mouth once daily. PT STATES WILL STOP TAKING ALEVE WITH LD BEING 03/26. docusate sodium (COLACE ORAL) Take 1 tablet by mouth once daily. CALCIUM CARBONATE (TUMS ORAL) Take 1-2 tablets by mouth once daily. LD 03/24 Cholecalciferol, Vitamin D3, 50 mcg (2,000 unit) cap Take 1 capsule by mouth once daily. LD 03/24 Sxgdvdtd-Qssrhdu-Mtmz-L utein tab Take 1 tablet by mouth once daily. LD 03/24 No current facility-administered medications on file prior to visit. PAST MEDICAL HISTORY Diagnosis Date Arthritis aleve or advil prn Breast cancer of upper-outer quadrant of left female breast (HCC) 01/12/2016 Dr. Sung, lumpectomy Cystocele, midline 09/02/2020 Delayed emergence from general anesthesia Elevated blood sugar 09/02/2020 pt states high normal, not on medication, diet controlled History of colonic polyps 10/28/2020 colonoscopy- Dr. Bowden Lymphedema of left upper extremity 05/14/2016 S/p lumpectomy and node biopsy Malignant neoplasm of upper-outer quadrant of left breast in female, estrogen receptor positive (HCC) 11/06/2016 Dr. Sung Medicare annual wellness visit, subsequent 02/10/2019 Medical B eligibilty date 06/27/2017 Last done 09/02/2020 Mixed incontinence 05/12/2021 Obesity, Class I, BMI 30-34.9 04/03/2021 Osteopenia PONV (postoperative nausea and vomiting) Venous insufficiency (chronic) (peripheral) 03/09/2019 pt states left arm swelling since lymph node removal Prior radiation therapy, collagen vascular disease, or inflammatory bowel disease: Yes, previous RT to the left breast as above. Any implanted or external electric devices? No status: Post-menopausal. PAST SURGICAL HISTORY Procedure Laterality Date BREAST LUMPECTOMY HX Right 04/01/2024 BREAST SURGERY HX Left lumpectomy, followed by radiation and pills CARPAL TUNNEL 2013 Bilateral COLONOSCOPY 2016 repeat 5 yrs COLONOSCOPY FLX DX W/COLLJ SPEC WHEN PFRMD 12/19/2020 DILATION AND CURETTAGE DXAND/THER NONOBSTETRIC 1979 Dilation AND curettage KNEE SURGERY HX Rig (more content not included)... Normal [facility] CNPBrittany 05-07-2024 HANHN Telephone (KASANDRA) LOVE PINO ([id number]) 1950 F TXT Date Time Provider Department 05/07/24 IBRAHIMA DHALIWAL During your visit today, we recorded the following information about you: Ibrahima Dhaliwal DO 05/07/2024 8:32 AM Signed Can let her know the Oncotype test showed there is no indication for chemotherapy. She should keep her consultation appointment with Dr. Lopez. I would still like to see her for her scheduled follow-up visit with me this month to review the test in detail and discuss plan for treatment following radiation. DO Kay Bowens Melanie, LPN 05/07/2024 9:05 AM Signed Patient aware of all information. Lesvia Girard LPN Allergies As of Date: 05/07/2024 Noted Allergy Reaction PENICILLIN 01/12/2016 10 - Anaphylaxis SULFA (SULFONAMIDE ANTIBIOTICS) 01/12/2016 9 - Itching Date Reviewed: 04/30/2024 Reviewed by: Loly Mckeon LPN - Fully Assessed Reason for Visit: Results [95] Prescriptions as of 05/07/2024 - acetaminophen (TYLENOL EXTRA STRENGTH) 500 mg tablet Take 500 mg by mouth every 8 hours as needed. - guaiFENesin (MUCINEX) 600 mg 12 hr tablet Take 1,200 mg by mouth once daily. LD 03/24 - Biotin 1 mg tab Take 1 tablet by mouth once daily. LD 03/24 - naproxen sodium (ALEVE ORAL) Take 1 tablet by mouth once daily. PT STATES WILL STOP TAKING ALEVE WITH LD BEING 03/26. - docusate sodium (COLACE ORAL) Take 1 tablet by mouth once daily. - CALCIUM CARBONATE (TUMS ORAL) Take 1-2 tablets by mouth once daily. LD 03/24 - Cholecalciferol, Vitamin D3, 50 mcg (2,000 unit) cap Take 1 capsule by mouth once daily. LD 03/24 - Cogefcwp-Fasrgnu-Addt-L utein tab Take 1 tablet by mouth once daily. LD 03/24 Problem List As Of Date 05/07/2024 Noted Resolved Breast cancer of upper-outer quadrant of left f*01/12/2016 Lymphedema of left upper extremity [I89.0] 05/14/2016 Malignant neoplasm of upper-outer quadrant of l*11/06/2016 Medicare annual wellness visit, subsequent [Z00*02/10/2019 Osteopenia, senile [M85.80] 02/10/2019 Venous insufficiency (chronic) (peripheral) [I8*03/09/2019 Elevated blood sugar [R73.9] 09/02/2020 Medication management [Z79.899] 09/02/2020 Cystocele, midline [N81.11] 09/02/2020 History of colonic polyps [Z86.0100] 10/28/2020 12/19/2020 Partial rectal prolapse [K62.3] 03/14/2021 Hemorrhoids [K64.9] 03/14/2021 Obesity, Class I, BMI 30-34.9 [E66.811] 04/03/2021 Rectocele [N81.6] 04/06/2021 Incomplete uterovaginal prolapse [N81.2] 04/06/2021 Mixed incontinence [N39.46] 05/12/2021 Advance directive discussed with patient [Z71.8*12/26/2021 Age-related osteoporosis without current pathol*05/20/2023 Primary malignant neoplasm of upper outer quadr*03/09/2024 Estrogen receptor positive status (ER+) [Z17.0] 03/09/2024 Personal history of malignant neoplasm of breas*03/09/2024 Preop testing [Z01.818] 03/30/2024 Encounter Status:Closed by LESVIA GIRARD [facility] LOVE PINO ([id number]) 1950 F TXT Date Time Provider Department 05/07/24 LOLY MCKEON [facility] During your visit today, we recorded the following information about you: Loly Mckeon LPN 05/07/2024 10:20 AM Addendum ----- Message from Remington Sung MD sent at 05/07/2024 8:40 AM EST ----- Will you please let her know that her Oncotype score came back low, so I do not believe she will need chemotherapy. Great news. Patient verbalized understanding Allergies As of Date: 05/07/2024 Noted Allergy Reaction PENICILLIN 01/12/2016 10 - Anaphylaxis SULFA (SULFONAMIDE ANTIBIOTICS) 01/12/2016 9 - Itching Date Reviewed: 04/30/2024 Reviewed by: Kehl, Loly, JIG OPERATOR - Fully Assessed Prescriptions as of 05/07/2024 - acetaminophen (TYLENOL EXTRA STRENGTH) 500 mg tablet Take 500 mg by mouth every 8 hours as needed. - guaiFENesin (MUCINEX) 600 mg 12 hr tablet Take 1,200 mg by mouth once daily. LD 03/24 - Biotin 1 mg tab Take 1 tablet by mouth once daily. LD 03/24 - naproxen sodium (ALEVE ORAL) Take 1 tablet by mouth once daily. PT STATES WILL STOP TAKING ALEVE WITH LD BEING 03/26. - docusate sodium (COLACE ORAL) Take 1 tablet by mouth once daily. - CALCIUM CARBONATE (TUMS ORAL) Take 1-2 tablets by mouth once daily. LD 03/24 - Cholecalciferol, Vitamin D3, 50 mcg (2,000 unit) cap Take 1 capsule by mouth once daily. LD 03/24 - Oukyftxr-Rasmhhh-Nboe-L utein tab Take 1 tablet by mouth once daily. LD 03/24 Problem List As Of Date 05/07/2024 Noted Resolved Breast cancer of upper-outer quadrant of left f*01/12/2016 Lymphedema of left upper extremity [I89.0] 05/14/2016 Malignant neoplasm of upper-outer quadrant of l*11/06/2016 Medicare annual wellness visit, subsequent [Z00*02/10/2019 Osteopenia, senile [M85.80] 02/10/2019 Venous insufficiency (chronic) (peripheral) [I8*03/09/2019 Elevated blood sugar [R73.9] 09/02/2020 Medication management [Z79.899] 09/02/2020 Cystocele, midline [N81.11] 09/02/2020 History of colonic polyps [Z86.0100] 10/28/2020 12/19/2020 Partial rectal prolapse [K62.3] 03/14/2021 Hemorrhoids [K64.9] 03/14/2021 Obesity, Class I, BMI 30-34.9 [E66.811] 04/03/2021 Rectocele [N81.6] 04/06/2021 Incomplete uterovaginal prolapse [N81.2] 04/06/2021 Mixed incontinence [N39.46] 05/12/2021 Advance directive discussed with patient [Z71.8*12/26/2021 Age-related osteoporosis without current pathol*05/20/2023 Primary malignant neoplasm of upper outer quadr*03/09/2024 Estrogen receptor positive status (ER+) [Z17.0] 03/09/2024 Personal history of malignant neoplasm of breas*03/09/2024 Preop testing [Z01.818] 03/30/2024 Encounter Status:Closed by LOLY MCKEON on 05/07/24 [facility] CNOVon 04-30-2024 CNOV Office Visit (BRSTMM ) LOVE PINO ([id number]) 1950 F TXT Date Time Provider Department 04/30/24 8:00 AM REMINGTON SUNG [facility] During your visit today, we recorded the following information about you: Pulse Respiration Blood pressure Weight 85/minute 16/minute 150/82 86.6 kg Remington Sung MD 04/30/2024 9:18 AM Signed Subjective: She is here for her first postoperative visit after a right partial mastectomy on 04/01/2024. She had clinically and radiologically negative nodes and because of her favorable tumor characteristics and her age we did not sample nodes. Her margins were clear. They did see 2 ijdk-nb-jfps lesions measuring 1.1 and 0.7 cm respectively. Estrogen and progesterone receptors were both strongly positive. HER2 receptor was negative. She did have genetic testing done which was negative for actionable abnormalities. Oncotype testing is pending. She has follow-up scheduled with her oncologist. He also referred her to radiation oncology for an opinion. She may or may not need radiation, since she is over 72 and did have small tumor burden and favorable receptor status. She is healing nicely with no complaints. Objective: BP 150/82 Pulse 85 Resp 16 Wt 86.6 kg (190 lb 14.4 oz) LMP 01/27/2003 BMI 34.69 kg/m? The incision in her right breast is healing without complication. Assessment: Uneventful postoperative course. Plan: She will keep her appointment with the radiation oncologist on Saturday. She will follow-up with her medical oncologist regarding her Oncotype results. I do suspect they will have her on AI therapy at some point. I will see her back in 1 month for a second and final postoperative checkup before getting her onto a routine follow-up scheduled. The sensitive examination was discussed with the Patient or Patient's Authorized Storage Worker. As applicable, any other physician, advance practice provider, medical student, or other health professional student that will be observing or involved in the sensitive examination for educational or training purposes was discussed with the Patient or Authorized Storage Worker. The Patient or Authorized Storage Worker has agreed to proceed with the sensitive examination. (Sensitive examination includes inspection and/or palpation of the breasts, pelvis, prostate and anorectal regions) Remington Sung MD Allergies As of Date: 04/30/2024 Noted Allergy Reaction PENICILLIN 01/12/2016 10 - Anaphylaxis SULFA (SULFONAMIDE ANTIBIOTICS) 01/12/2016 9 - Itching Date Reviewed: 04/30/2024 Reviewed by: Loly Mckeon LPN - Fully Assessed Reason for Visit: Breast Cancer [519] Primary Visit Diagnosis: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) [C50.411] Other Visit Diagnoses:Estrogen receptor positive status (ER+) [Z17.0] Personal history of malignant neoplasm of breast [Z85.3] 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) [C50.412] Prescriptions as of 04/30/2024 - acetaminophen (TYLENOL EXTRA STRENGTH) 500 mg tablet Take 500 mg by mouth every 8 hours as needed. - guaiFENesin (MUCINEX) 600 mg 12 hr tablet Take 1,200 mg by mouth once daily. LD 03/24 - Biotin 1 mg tab Take 1 tablet by mouth once daily. LD 03/24 - naproxen sodium (ALEVE ORAL) Take 1 tablet by mouth once daily. PT STATES WILL STOP TAKING ALEVE WITH LD BEING 03/26. - docusate sodium (COLACE ORAL) Take 1 tablet by mouth once daily. - CALCIUM CARBONATE (TUMS ORAL) Take 1-2 tablets by mouth once daily. LD 03/24 - Cholecalciferol, Vitamin D3, 50 mcg (2,000 unit) cap Take 1 capsule by mouth once daily. LD 03/24 - Xvdevkeu-Ggjnfzf-Pkrx-L utein tab Take 1 tablet by mouth once daily. LD 03/24 Problem List As Of Date 04/30/2024 Noted Resolved Breast cancer of upper-outer quadrant of left f*01/12/2016 Lymphedema of left upper extremity [I89.0] 05/14/2016 Malignant neoplasm of upper-outer quadrant of l*11/06/2016 Medicare annual wellness visit, subsequent [Z00*02/10/2019 Osteopenia, senile [M85.80] 02/10/2019 Venous insufficiency (chronic) (peripheral) [I8*03/09/2019 Elevated blood sugar [R73.9] 09/02/2020 Medication management [Z79.899] 09/02/2020 Cystocele, midline [N81.11] 09/02/2020 History of colonic polyps [Z86.0100] 10/28/2020 12/19/2020 Partial rectal prolapse [K62.3] 03/14/2021 Hemorrhoids [K64.9] 03/14/2021 Obesity, Class I, BMI 30-34.9 [E66.811] 04/03/2021 Rectocele [N81.6] 04/06/2021 Incomplete uterovaginal prolapse [N81.2] 04/06/2021 Mixed incontinence [N39.46] 05/12/2021 Advance directive discussed with patient [Z71.8*12/26/2021 Age-related osteoporosis without current pathol*05/20/2023 Primary malignant neoplasm of upper outer quadr*03/09/2024 Estrogen receptor positive status (ER+) [Z17.0] 03/09/2024 Personal history of malignant n (more content not included)... [facility] CNOVSPon 04-16-2024 CNOVS Visit (SP) Office (HEMAWS) LOVE PINO ([id number]) 1950 F TXT Date Time Provider Department 04/16/24 10:10 AM IBRAHIMA DHALIWAL During your visit today, we recorded the following information about you: Temperature Pulse Blood pressure Weight 98.6 degrees 89/minute 113/78 86.9 kg Height 1.58 m Ibrahima Dhaliwal DO 04/16/2024 5:03 PM Signed Diagnosis: 1) Breast cancer. HPI: Patient is a 73 yo female with past medical history significant only for arthritis. She was found to have an [...] nuclear grade 2. ER >90%, strong and OR 60%, weak to moderate. HER2 quantified at [...] An additional 11 lymph nodes were negative. Presents for ongoing oncologic management. Interim history: Received adjuvant radiation to the left breast. That was followed with 5 years of anastrozole completed 03/2021. Recent lumpectomy and sentinel lymph node biopsy for new right sided lobular carcinoma. Pathology reviewed. PMH, medications, social history and family history and allergies personally reviewed by me today. Any changes documented in appropriate section. ROS: Constitutional: Denies episodes of fever and night sweats. Not significantly fatigued. Neuro: Denies ALEXANDER, vertigo, dizziness and imbalance. No symptoms of neuropathy. HEENT: No recent change in voice, vision or hearing. Resp: Denies cough, wheeze and hemoptysis. Denies shortness of breath at rest. Denies PANCHAL. CVS: Denies exertional chest pain, PND, orthopnea and LE edema. GI: Denies dysgeusia. Denies symptoms of stomatitis. Denies dysphagia and odynophagia. Denies reflux, n/v, change in bowel habits and abdominal pain. No symptoms of stomatitis. : Denies dysuria or gross hematuria. No symptoms of bladder outlet obstruction. Endo: Denies hot flashes. Denies polyuria and polydipsia. Denies heat and cold intolerance. Musculoskeletal: Denies bone, back, joint and muscular pain. Derm: Denies rash. Heme: Denies unusual bleeding and unexplained bruising. Psych: Normal mood. The sensitive examination was discussed with the Patient or Patient's Authorized Storage Worker. As applicable, any other physician, advance practice provider, medical student, or other health professional student that will be observing or involved in the sensitive examination for educational or training purposes was discussed with the Patient or Authorized Storage Worker. The Patient or Authorized Storage Worker has agreed to proceed with the sensitive examination. (Sensitive examination includes inspection and/or palpation of the breasts, pelvis, prostate and anorectal regions) Lesvia Girard LPN chaperoned. PHYSICAL EXAM: Vitals: Blood pressure 113/78, pulse 89, temperature 37 ?C (98.6 ?F), temperature source Temporal, height 158 cm (5' 2.21), weight 86.9 kg (191 lb 8 oz), last menstrual period 01/27/2003, SpO2 95%. Well-appearing and in no acute distress. EYES: Sclerae are anicteric bilaterally. BREAST: Right breast--3 small areas of skin abrasion from removing the Steri-Strips. No sign of infection. No axillary adenopathy. NGS/biomarkers/wheat combine driver mutation analyses: [facility] genetic testing negative. ASSESSMENT/PLAN: (C50.412) Breast cancer of upper-outer quadrant of left female breast (HCC) (primary encounter diagnosis) Assessment: -New pT1c(m) pNX M0 ER/OR positive, HER2 negative invasive lobular carcinoma of the right breast. -History of a pT1 (1.9 cm; grade 2; LVI+) pN1a MX ER/OR positive HER2 negative stage IIA invasive ductal carcinoma the left breast. -I had a detailed discussion with patient regarding the adjuvant treatment modalities of breast cancer. I discussed the indication for aromatase inhibitor therapy including the rationale, potential side effects and duration of therapy. Explained to her that when the time comes to begin aromatase inhibitor therapy, will up date DEXA and determine vitamin D level. -I discussed the decision for adjuvant chemotherapy based on belinda (more content not included)... Normal [facility] CNPNon 04-02-2024 CNPN Telephone ([facility]) LOVE PINO ([id number]) 1950 F TXT Date Time Provider Department 04/02/24 GIANA VELASCO [facility] During your visit today, we recorded the following information about you: Giana Velasco RN 04/02/2024 10:50 AM Signed I called to see how patient is feeling post op lumpectomy on 04/01/24. The patient reports that she is doing quite well. She denies any redness, drainage, fever, chills, or discomfort. I reinforced to call if any changes or she spikes a fever/chills. I reinforced surgery go home instructions and answered any questions to the patient's satisfaction. She is aware of her post op appointment that is scheduled with Dr Sung on 04/30/24 at 8 am. Allergies As of Date: 04/02/2024 Noted Allergy Reaction PENICILLIN 01/12/2016 10 - Anaphylaxis SULFA (SULFONAMIDE ANTIBIOTICS) 01/12/2016 9 - Itching Date Reviewed: 04/01/2024 Reviewed by: Anaya Moss, COLT - Fully Assessed Prescriptions as of 04/02/2024 - HYDROcodone-acetaminoph en (NORCO) 5-325 mg per tablet Take 1-2 tablets by mouth every 4 hours as needed for pain for up to 7 days. - guaiFENesin (MUCINEX) 600 mg 12 hr tablet Take 1,200 mg by mouth once daily. LD 03/24 - Biotin 1 mg tab Take 1 tablet by mouth every other day. LD 03/24 - naproxen sodium (ALEVE ORAL) Take 1 tablet by mouth once daily. PT STATES WILL STOP TAKING ALEVE WITH LD BEING 03/26. - docusate sodium (COLACE ORAL) Take 1 tablet by mouth once daily. - CALCIUM CARBONATE (TUMS ORAL) Take 1-2 tablets by mouth once daily. LD 03/24 - Cholecalciferol, Vitamin D3, 50 mcg (2,000 unit) cap Take 1 capsule by mouth once daily. LD 03/24 - Peauehbu-Npgocuy-Royi-L utein tab Take 1 tablet by mouth once daily. LD 03/24 Problem List As Of Date 04/02/2024 Noted Resolved Breast cancer of upper-outer quadrant of left f*01/12/2016 Lymphedema of left upper extremity [I89.0] 05/14/2016 Malignant neoplasm of upper-outer quadrant of l*11/06/2016 Medicare annual wellness visit, subsequent [Z00*02/10/2019 Osteopenia, senile [M85.80] 02/10/2019 Venous insufficiency (chronic) (peripheral) [I8*03/09/2019 Elevated blood sugar [R73.9] 09/02/2020 Medication management [Z79.899] 09/02/2020 Cystocele, midline [N81.11] 09/02/2020 History of colonic polyps [Z86.0100] 10/28/2020 12/19/2020 Partial rectal prolapse [K62.3] 03/14/2021 Hemorrhoids [K64.9] 03/14/2021 Obesity, Class I, BMI 30-34.9 [E66.811] 04/03/2021 Rectocele [N81.6] 04/06/2021 Incomplete uterovaginal prolapse [N81.2] 04/06/2021 Mixed incontinence [N39.46] 05/12/2021 Advance directive discussed with patient [Z71.8*12/26/2021 Age-related osteoporosis without current pathol*05/20/2023 Primary malignant neoplasm of upper outer quadr*03/09/2024 Estrogen receptor positive status (ER+) [Z17.0] 03/09/2024 Personal history of malignant neoplasm of breas*03/09/2024 Preop testing [Z01.818] 03/30/2024 Encounter Status:Closed by GIANA VELASCO on 04/02/24 [facility] ANES POSTPROC EVALon 024 ANES POSTPROC EVAL HNO ID: [id number] Author: NICK DALE DO Service: Anesthesiology Author Type: Anesthesiologist Type: Anesthesia Postprocedure Evaluation Filed: 04/01/2024 15:07 Note Text: POST ANESTHESIA EVALUATION NOTE : 1950 Procedure Summary Date: 04/01/24 Room / Location: OR [address] [place] [address] OR Anesthesia Start: 1242 Anesthesia Stop: 1349 Procedures: LUMPECTOMY BREAST (Right) PLACEMENT OF BREAST LOCALIZATION DEVICE(S) PERCUTANEOUS; FIRST LESION, ULTRASOUND GUIDANCE (Right) Diagnosis: Malignant neoplasm of upper-outer 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, unspecified estrogen receptor status (HCC) (Malignant neoplasm of upper-outer 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, unspecified estrogen receptor status (HCC) [C50.411]) Surgeons: Remington Sung MD Responsible Provider: Nick Dale DO Anesthesia Type: general ASA Status: 2 Anesthesia Type: general Airway Type: LMA Last Vitals Vitals Value Taken Time BP 143/82 04/01/24 1500 Temp 36.7 ?C (98 ?F) 04/01/24 1434 HR SpO2 75 04/01/24 1435 Resp 16 04/01/24 1434 SpO2 100 % 04/01/24 1435 Vitals shown include unfiled device data. Post Anesthesia Patient Status Patient Evaluation: PACU. PACU/ICU Patient Condition: stable. Anticipated Disposition: phase 2 then home. Neurological Status: aware and responsive. Pulmonary Status: breathing comfortably on room air Airway Control: returned to baseline unsupported. Cardiovascular Status: stable. Pain Management: clinically adequate Postoperative Hydration: acceptable. Intraoperative Events: no significant anesthesia events Post Operative Nausea/Vomiting Status: no significant post operative nausea or vomiting Recommendation: further care per PACU/ICU/floor team. Anesthesia Observations No Documentation SIGNATURE: Nick Dale DO PATIENT NAME: Love Pino DATE: April 01, 2024 TIME: 3:06 PM CSN: [id number] [facility] ANES PRE-OPon 04-01-2024 ANES PRE-OP HNO ID: [id number] Author: NICK DALE DO Service: Anesthesiology Author Type: Anesthesiologist Type: Anesthesia Preprocedure Evaluation Filed: 04/01/2024 11:15 Note Text: ANESTHESIOLOGY DAY OF SURGERY NOTE : 1950 Procedure Information Date/Time: 04/01/24 1125 Procedures: LUMPECTOMY BREAST (Right) PLACEMENT OF BREAST LOCALIZATION DEVICE(S) PERCUTANEOUS; FIRST LESION, ULTRASOUND GUIDANCE (Right) Location: MR OR 10 / MR OR Surgeons: Remington Sung MD Estimated body mass index is 34.8 kg/m? as calculated from the following: Height as of this encounter: 157.5 cm (5' 2). Weight as of this encounter: 86.3 kg (190 lb 4.1 oz). Most recent hematocrit and potassium results: Hematocrit 43.6 03/17/2024 Potassium 3.9 03/17/2024 Relevant Problems CARDIO (+) Hemorrhoids (+) Venous insufficiency (chronic) (peripheral) NEURO-PSYCH (+) Personal history of malignant neoplasm of breast I - PHYSICAL EVALUATION AIRWAY Patient intubated: No. Tracheostomy tube not present Mallampati: II. TM distance: >3 FB. Neck ROM: full ROM without neurological symptoms. Mouth opening: adequate. Short neck: no. Thick neck: no II - ANESTHESIA PLAN ASA Score: 2 Anesthetic Plan: general Airway type: LMA NPO Status: adequate Beta Edil Monitoring Plan Monitoring plan: standard ASA. Post Procedure Analgesic Plan Postoperative analgesic plan: multimodal analgesia. Informed Consent Anesthetic risks, benefits, alternatives, personnel and consent discussed: yes. Patient / Responsible Green Party agrees to proceed: yes Patient / Surrogate agrees to blood products: Yes Vitals Value Taken Time BP 130/74 04/01/24 0937 Pulse 73 04/01/24 0937 Resp 18 04/01/24 0725 Temp 36.4 ?C (97.6 ?F) 04/01/24 0725 SpO2 98 % 04/01/24 0725 Facility-Administered Medications as of 04/01/2024 Medication Dose Route Frequency clindamycin iv piggyback 900 mg in D5W 50 mL (CLEOCIN) 900 mg INTRAVENOUS ONCE Outpatient Medications as of 04/01/2024 Medication Sig guaiFENesin (MUCINEX) 600 mg 12 hr tablet Take 1,200 mg by mouth once daily. LD 03/24 Biotin 1 mg tab Take 1 tablet by mouth every other day. LD 03/24 naproxen sodium (ALEVE ORAL) Take 1 tablet by mouth once daily. PT STATES WILL STOP TAKING ALEVE WITH LD BEING 03/26. docusate sodium (COLACE ORAL) Take 1 tablet by mouth once daily. CALCIUM CARBONATE (TUMS ORAL) Take 1-2 tablets by mouth once daily. LD 03/24 Cholecalciferol, Vitamin D3, 50 mcg (2,000 unit) cap Take 1 capsule by mouth once daily. LD 03/24 Rwluctuj-Rzoctdu-Eljb-L utein tab Take 1 tablet by mouth once daily. LD 03/24 I have interviewed and examined the patient. I have reviewed the medical record and/or the pre-anesthesia evaluation, pertinent labs, and test results. This contains updated information obtained within 48 hours of Surgery/Procedure. SIGNATURE: Nick Dale DO PATIENT NAME: Love Pino DATE: April 01, 2024 TIME: 11:14 AM CSN: [id number] [facility] [employer] ONCOTYPE DXon 04-01-2024 [employer] ONCOTYPE DX RESULT View results in Scanned Documents link when available. [facility] Comment on above: Order Comment: Speci men Type: TISSUE SPECIMENOrdering Facility: [facility] Address: [address] [place] [address] Performed By: #### G [facility] ####GENOM[facility] HEALTHCLIA [id number] [place] [address] HISTORY PHYSICALon HISTORY PHYSICAL HNO ID: [id number] Author: REMINGTON SUNG MD Service: General Surgery Author Type: Physician Type: H&P Filed: 04/01/2024 08:31 Note Text: UPDATED HISTORY AND PHYSICAL EXAMINATION SERVICE DATE: 04/01/2024 SERVICE TIME: 8:30 AM SENSITIVE EXAMINATION CONSENT: The sensitive examination was discussed with the Patient or Patient's Authorized Storage Worker. As applicable, any other physician, advance practice provider, medical student, or other health professional student that will be observing or involved in the sensitive examination for educational or training purposes was discussed with the Patient or Authorized Storage Worker. The Patient or Authorized Storage Worker has agreed to proceed with the sensitive examination. (Sensitive examination includes inspection and/or palpation of the breasts, pelvis, prostate and anorectal regions) PHYSICAL EXAM MUST BE COMPLETED ON ADMISSION The History and Physical (completed in the past 30 days) has been reviewed and the patient has been examined. The contents accurately reflect the patient's condition with the following additions or revisions since the HANDP was completed. Examination indicates no changes. This HANDP can be found in the Electronic Medical Record dated 03/09/2024.. SIGNATURE: Remington Sung MD PATIENT NAME: Love Pino DATE: April 01, 2024 TIME: 8:30 AM [facility] DIAGNOSTIC RTon 04-01-20 24 [facility] DIAGNOSTIC RT * * *Final Report* * * DATE OF EXAM: Apr 01 2024 10:52AM W 0626 - [facility] DIAGNOSTIC RT / PROCEDURE REASON: Malignant neoplasm of upper-outer 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, unspecified e * * * * Physician Interpretation * * * * [facility] [address] [facility] [place] [address] #[id number] - [facility] DIAGNOSTIC RT HISTORY: Patient is 73 years old and is seen for diagnostic evaluation of post wire placement in the right breast. 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 COMPARISON STUDIES: The present examination has been compared to prior imaging studies dated 01/03/2024 (mammogram), 01/29/2024 (mammogram), 01/29/2024 (ultrasound), 02/24/2024 (mammogram) and 04/01/2024. MAMMOGRAM TECHNIQUE: The study was acquired using full field digital technology and interpreted from soft copy. Computer-aided detection was utilized by the radiologist in the interpretation of this examination. MAMMOGRAM FINDINGS: There are scattered areas of fibroglandular density. There was successful wire placement in the middle depth upper outer quadrant of the right breast. IMPRESSION: Wire in the right breast shows successful placement. Mammogram BI-RADS: Post-procedure mammogram for marker placement Interpreting Radiologist: Pearl Pina M.D. Electronically signed on: 04/01/2024 Tube Closing Machine Operator: DARIAN Transcribe Date/Time: Apr 01 2024 10:42A Dictated by : PEARL PINA MD This examination was interpreted and the report reviewed and electronically signed by: PEARL PINA MD on Apr 01 2024 10:56AM EST [id number] [facility] SURG BREAST SPECIMEN RTo n 04-01-2024 [facility] SURG BREAST SPECIMEN RT * * *Final Report* * * DATE OF EXAM: Apr 01 2024 1:29PM [facility] 0639 - [facility] SURG BREAST SPECIMEN RT / PROCEDURE REASON: Malignant neoplasm of upper-outer 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, unspecified e * * * * Physician Interpretation * * * * [place] [id number] [facility] [place] [address] #[id number] - [facility] SURG BREAST SPECIMEN RT HISTORY: Right Specimen Radiograph COMPARISON: 01/29/2024 (ultrasound), 01/29/2024 (mammogram), 02/24/2024 (mammogram), 03/17/2024 (ultrasound) and 04/01/2024 (mammogram). FINDINGS: A single image of the lumpectomy specimen demonstrates a wire and a Q biopsy marker in the specimen. Coil marker incidentally noted within the specimen. IMPRESSION: SPECIMEN A single image of the lumpectomy specimen demonstrates a wire and a Q biopsy marker in the specimen. COMMUNICATION: Urgent Results: The results of the specimen radiograph were discussed with Dr. Remington Sung in the O.R. On 04/01/2024 at 1330. Interpreting Radiologist: Pearl Pina M.D. Electronically signed on: 04/01/2024 Tube Closing Machine Operator: DARIAN Talamantes Date/Time: Apr 01 2024 1:27P Dictated by : PEARL PINA MD This examination was interpreted and the report reviewed and electronically signed by: PEARL PINA MD on Apr 01 2024 1:33PM EST [id number] [facility] US LOC BREAST RTon 04-01 [facility] US LOC BREAST RT * * *Final Report* * * DATE OF EXAM: Apr 01 2024 9:59AM RHW 0600 - [facility] US LOC BREAST RT / PROCEDURE REASON: Malignant neoplasm of upper-outer 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, unspecified e * * * * Physician Interpretation * * * * [facility] US LOC BREAST RT Ordering Physician: REMINGTON SUNG Clinical Statement: Malignant neoplasm of the 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 Comparison 12/25/2023 FINDINGS: Initial sonographic imaging redemonstrates an approximately 8 mm irregular hypoechoic mass in the 11:00 position of the right breast 3 cm from the nipple with associated localization clip from prior biopsy. Consent: Informed consent was obtained for this procedure. Details of informed consent can be found in [facility] under the consent tab. Prior to the procedure, the patient, procedure to be performed, and procedure site were identified . Timeout procedure was performed. The patient was prepped and draped in the usual sterile fashion. 1% lidocaine was used for local anesthesia. Using sonographic guidance, needle localization was performed with a 5 cm modified Kopan's needle from a lateral approach. Ultrasound confirmed needle position passing through the area of concern terminating deep and medial to the mass. The patient tolerated the procedure well without immediate apparent complication IMPRESSION: Uncomplicated ultrasound-guided needle localization right breast mass. Tube Closing Machine Operator: JACE Transcribe Date/Time: Apr 01 2024 10:00A Dictated by : JUVE VILLANUEVA MD This examination was interpreted and the report reviewed and electronically signed by: JUVE VILLANUEVA MD on Apr 01 2024 10:53AM [facility] [id number] [facility] MG Breast - right Diagnostic for implanton 04-01-2024 IMPRESSION: Wire in the right breast shows successful placement. Mammogram BI-RADS: Post-procedure mammogram for marker placement Interpreting Radiologist: Pearl Pina M.D. Electronically signed on: 04/01/2024 Tube Closing Machine Operator: DARIAN Transcribe Date/Time: Apr 01 2024 10:42A Dictated by : PEARL PINA MD This examination was interpreted and the report reviewed and electronically signed by: PEARL PINA MD on Apr 01 2024 10:56AM [facility] RADIOLOGY * * *Final Report* * * DATE OF EXAM: Apr 01 2024 10:52AM [facility] 0626 - [facility] DIAGNOSTIC RT / PROCEDURE REASON: Malignant neoplasm of upper-outer 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, unspecified e * * * * Physician Interpretation * * * * [place] [address] [place] [address] #[id number] - [facility] DIAGNOSTIC RT HISTORY: Patient is 73 years old and is seen for diagnostic evaluation of post wire placement in the right breast. 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 COMPARISON STUDIES: The present examination has been compared to prior imaging studies dated 01/03/2024 (mammogram), 01/29/2024 (mammogram), 01/29/2024 (ultrasound), 02/24/2024 (mammogram) and 04/01/2024. MAMMOGRAM TECHNIQUE: The study was acquired using full field digital technology and interpreted from soft copy. Computer-aided detection was utilized by the radiologist in the interpretation of this examination. MAMMOGRAM FINDINGS: There are scattered areas of fibroglandular density. There was successful wire placement in the middle depth upper outer quadrant of the right breast. [facility] RADIOLOGY Provider, [facility] Peng Yung - 04/01/2024 * * *Final Report* * * DATE OF EXAM: Apr 01 2024 10:52AM [facility] 0626 - [facility] DIAGNOSTIC RT / PROCEDURE REASON: Malignant neoplasm of upper-outer 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, unspecified e * * * * Physician Interpretation * * * * [address] [place] [address] #[id number] - [facility] DIAGNOSTIC RT HISTORY: Patient is 73 years old and is seen for diagnostic evaluation of post wire placement in the right breast. 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 COMPARISON STUDIES: The present examination has been compared to prior imaging studies dated 01/03/2024 (mammogram), 01/29/2024 (mammogram), 01/29/2024 (ultrasound), 02/24/2024 (mammogram) and 04/01/2024. MAMMOGRAM TECHNIQUE: The study was acquired using full field digital technology and interpreted from soft copy. Computer-aided detection was utilized by the radiologist in the interpretation of this examination. MAMMOGRAM FINDINGS: There are scattered areas of fibroglandular density. There was successful wire placement in the middle depth upper outer quadrant of the right breast. IMPRESSION IMPRESSION: Wire in the right breast shows successful placement. Mammogram BI-RADS: Post-procedure mammogram for marker placement Interpreting Radiologist: Pearl Pina M.D. Electronically signed on: 04/01/2024 Tube Closing Machine Operator: DARIAN [employer] Date/Time: Apr 01 2024 10:42A Dictated by : PEARL PINA MD This examination was interpreted and the report reviewed and electronically signed by: PEARL PINA MD on Apr 01 2024 10:56AM [facility] Radiology Study observation (narrative) [facility] MG Breast specimen - right V iewson 04-01-2024 IMPRESSION: SPECIMEN A single image of the lumpectomy specimen demonstrates a wire and a Q biopsy marker in the specimen. COMMUNICATION: Urgent Results: The results of the specimen radiograph were discussed with Dr. Remington Sung in the O.R. On 04/01/2024 at 1330. Interpreting Radiologist: Pearl Pina M.D. Electronically signed on: 04/01/2024 Tube Closing Machine Operator: DARIAN [employer] Date/Time: Apr 01 2024 1:27P Dictated by : PEARL PINA MD This examination was interpreted and the report reviewed and electronically signed by: PEARL PINA MD on Apr 01 2024 1:33PM [facility] RADIOLOGY * * *Final Report* * * DATE OF EXAM: Apr 01 2024 1:29PM [facility] 0639 - [facility] SURG BREAST SPECIMEN RT / PROCEDURE REASON: Malignant neoplasm of upper-outer 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, unspecified e * * * * Physician Interpretation * * * * [facility] [address] [facility] [place] [address] #[id number] - [facility] SURG BREAST SPECIMEN RT HISTORY: Right Specimen Radiograph COMPARISON: 01/29/2024 (ultrasound), 01/29/2024 (mammogram), 02/24/2024 (mammogram), 03/17/2024 (ultrasound) and 04/01/2024 (mammogram). FINDINGS: A single image of the lumpectomy specimen demonstrates a wire and a Q biopsy marker in the specimen. Coil marker incidentally noted within the specimen. [facility] RADIOLOGY Provider, [facility] Peng Yung - 04/01/2024 * * *Final Report* * * DATE OF EXAM: Apr 01 2024 1:29PM [facility] 0639 - [facility] SURG BREAST SPECIMEN RT / PROCEDURE REASON: Malignant neoplasm of upper-outer 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, unspecified e * * * * Physician Interpretation * * * * [facility] [address] [facility] [place] [address] #[id number] - [facility] SURG BREAST SPECIMEN RT HISTORY: Right Specimen Radiograph COMPARISON: 01/29/2024 (ultrasound), 01/29/2024 (mammogram), 02/24/2024 (mammogram), 03/17/2024 (ultrasound) and 04/01/2024 (mammogram). FINDINGS: A single image of the lumpectomy specimen demonstrates a wire and a Q biopsy marker in the specimen. Coil marker incidentally noted within the specimen. IMPRESSION IMPRESSION: SPECIMEN A single image of the lumpectomy specimen demonstrates a wire and a Q biopsy marker in the specimen. COMMUNICATION: Urgent Results: The results of the specimen radiograph were discussed with Dr. Remington Sung in the O.R. On 04/01/2024 at 1330. Interpreting Radiologist: Pearl Pina M.D. Electronically signed on: 04/01/2024 Tube Closing Machine Operator: DARIAN [employer] Date/Time: Apr 01 2024 1:27P Dictated by : PEARL PINA MD This examination was interpreted and the report reviewed and electronically signed by: PEARL PINA MD on Apr 01 2024 1:33PM EST [facility] Radiology Study observation (narrative) [facility] OPERATIVE NOon 04-01-2024 OPERATIVE NO HNO ID: [id number] Author: REMINGTON SUNG MD Service: General Surgery Author Type: Physician Type: Operative Report Filed: 04/01/2024 13:39 Note Text: April 01, 2024 Love Pino 1950 [id number] Preoperative diagnosis: Right breast cancer Postoperative diagnosis: Same Operative procedure: Needle localized right partial mastectomy Indication: This is a 73-year-old female who presented with a small nodular density in her right breast. Biopsy showed infiltrating ductal carcinoma. It was estrogen and progesterone receptor positive. She had clinically and radiologically normal lymph nodes. She is coming in today for a needle localized partial mastectomy. Procedure: After successful localization in the radiology suite, the patient was brought to the operating room where they were administered a general anesthetic. The right breast was prepped and draped in the usual sterile manner. A transverse skin incision was made around the localizing wire. The breast tissue surrounding the localizing wire was widely dissected out. The specimen was removed and marked with a short stitch superiorly and a long stitch laterally for orientation purposes. It was then sent to radiology for specimen radiograph. The lesion in question, along with the entire localizing wire, was seen in the specimen radiograph. It was sent for permanent pathologic exam. Small bleeding points were controlled with cautery. Hemostasis was excellent. The wound was irrigated and infiltrated with half percent Marcaine for postoperative analgesia. The skin was closed with 4-0 Vicryl subcuticular suture. Mastisol, Steri-Strips, and a dry sterile dressing were applied. The patient was returned to recovery in good condition. Blood loss was minimal. Sponge and needle counts were correct. Remington Sung MD [facility] SURGICAL PATHOLOGYon 024 BLOCK FOR ADDITIONAL BIOMARKERS/MOLECULAR STUDIES A4 [facility] Comment on above: Order Comment: Speci men Type: TISSUE SPECIMENOrdering Facility: [facility] Address: [address] [place] [id number] Performed By: #### S ####[facility] LABORATORYCLIA [id number] [address] STATES OF [facility] CASE REPORT [facility] Comment on above: Order Comment: Speci men Type: TISSUE SPECIMENOrdering Facility: [facility] Address: [address] [place] [address] Result Comment: Surg [facility] Pathology Report Case: [id number] Authorizing Provider: Remington Sung MD Collected: 04/01/2024 01:19 PM Ordering Location: [facility] Surgery Received: 04/01/2024 02:24 PM Pathologist: Sonam Trinidad MD Specimen: Breast, Right, Lumpectomy, Right breast lumpectomy, short stitch superior, long stitch lateral Performed By: #### S ####[facility] LABORATORYCLIA [id number] [address] CLINICAL HISTORY [facility] Comment on above: Order Comment: Efraín peck Type: TISSUE SPECIMENOrdering Facility: [facility] Address: [address] [place] [address] Result Comment: Pre- op diagnosis: Malignant neoplasm of upper-outer 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, unspecified estrogen receptor status (HCC) [C50.411] Performed By: #### S ####[facility] [id number] [address] DIAGNOSIS COMMENT [facility] Comment on above: Order Comment: Efraín peck Type: TISSUE SPECIMENOrdering Facility: [facility] Address: [address] [place] [address] Result Comment: The smaller focus of invasive lobular carcinoma showed less nuclear pleomorphism than the larger tumor and less mitotic activity (tubule score: 3, nuclear pleomorphism: 1, mitotic score: 1 for a total score of 5, grade 1). It is from the larger tumor mass by approximately 4 cm of uninvolved breast tissue and located anterior and lateral to the larger mass. Given the lower grade of the second nodule, prognostic markers (ER/OR and HER2/garry) were not performed on the smaller mass. If clinically indicated, these markers can be performed and reported separately. Clinical correlation is recommended. Performed By: #### S ####[facility] LABORATORYIA [id number] [address] FINAL DIAGNOSIS [facility] Comment on above: Order Comment: Efraín peck Type: TISSUE SPECIMENOrdering Facility: [facility] Address: [address] [place] [address] Result Comment: A. R ight breast, lumpectomy with needle localization: - Invasive lobular carcinoma, grade 2, two foci (1.1 x 1.1 x 0.8 cm) and (0.7 x 0.5 x 0.4 cm). - Surgical margins are negative for malignancy. - Fibrocystic change with focal atypical ductal hyperplasia, apocrine metaplasia and intraductal microcalcifications. - Focal perineural invasion. - Focal atypical lobular hyperplasia/lobular carcinoma in situ. - See comment. Performed By: #### S ####[facility] LABORATORYCLIA [id number] [address] FINAL PERFORMING LAB Normal [facility] Comment on above: Order Comment: Speci men Type: TISSUE SPECIMENOrdering Facility: [facility] Address: [address] [place] [address] Result Comment: Diag nostic interpretation performed at [facility], [address] [place] [address] CLIA# [id number] [employer] [place] Supervisor: Sonam Trinidad M.D. Performed By: #### S ####[facility] LABORATORYCLIA [id number] [address] GROSS DESCRIPTION [facility] Comment on above: Order Comment: Speci liv Type: TISSUE SPECIMENOrdering Facility: [facility] Address: [address] [place] [address] Result Comment: Kennedy rodriguezt, Right, Lumpectomy Received in formalin in a Christine device, labeled as right breast lumpectomy is an oriented (short stitch superior, long stitch lateral) segment of fibroadipose tissue that weighs 43.2 g and measures 7.4 cm medial-lateral, 6.5 cm anterior posterior, and 1.7 cm superior-inferior. The specimen is differentially inked as follows: Superior-blue, inferior-green, medial-orange, lateral-red, anterior-yellow, and deep/posterior-black. A localization wire is protruding from the anterior surface of the specimen. The specimen radiograph within the chart is reviewed to reveal a coil clip and Q/twirl clip. The specimen is serially sectioned from medial (#1) to lateral into 15 slices to reveal 2 distinct nodules. Nodule #1 Nodule #1 is situated within slices 4-6 (1.1 cm medial-lateral, 1.1 cm anterior posterior, and 0.8 cm superior-inferior) is kizmh-vjw-snrzco, moderate to well-defined and firm. It is 0.1 cm to the inferior margin, 0.7 cm to the posterior margin, 1.2 cm to the superior margin, 2.4 cm to the medial margin, 2.8 cm to the lateral margin, and 3.4 cm to the anterior margin. Within the nodule is the twirl/Q clip (slice 5). The coil clip is identified possibly in the nodule within slice 6. Nodule #2 Nodule #2 is situated 4.0 cm anterior and lateral to nodule #1, and is identified within slices 13-15. It is white-martinez, firm and well-defined, and measures 0.7 cm medial-lateral, 0.5 cm superior-inferior, and 0.4 cm anterior posterior. This nodule abuts the lateral margin, is 0.2 cm to the inferior margin, is 0.7 cm to the anterior margin, 1.0 cm to the superior margin, 3.8 cm to the posterior margin, and 4.7 cm to the medial margin. The remaining cut surfaces of the specimen demonstrate hemorrhagic streaks, fibrous tissue with fibrocystic change (15%) and unremarkable adipose tissue. The time the specimen was removed from the patient is 1319 hrs. on 04/01/2024. The time the specimen was placed in formalin is 1350 hrs. on the same day. The specimen is reviewed with Dr. Trinidad. Storage Worker sections to include entire nodules are submitted from medial to lateral as follows: A1. Storage Worker slice 1, perpendicular, with inferior and medial margins A2. Storage Worker slice 3, with anterior, superior, and medial margins A3. Storage Worker slice 4, nodule #1 with superior, inferior, and posterior margins A4. Storage Worker slice 5, nodule #1 with superior, inferior, and posterior margins (Q/twirl clip slice) A5-6. Storage Worker slice 6 (possible coil clip site) A5- nodule #1 with superior, inferior, and posterior margins A6- nodule #1 with superior, inferior, and nearest anterior margins A7. Storage Worker slice 7, tissue lateral to nodule #1, with superior and inferior margins A8. Storage Worker slice 12, tissue medial to nodule #2 with superior, inferior and anterior margins A9. Storage Worker slice 13, nodule #2 to superior, inferior, and lateral margins, and nearest posterior margin A10. Storage Worker slice 14, nodule #2 to superior, inferior, and lateral margin A11-12. Storage Worker slice 15, perpendicular, remainder of nodule #2 to lateral and portion of inferior margins CG April 02, 2024 11:16 AM Gross examination performed at [facility] [address] [place] [address] CLIA#[id number] Performed By: #### S ####[facility] LABORATORYCLIA [id number] [address] STATES OF [place] MICROSCOPIC DESCRIPTION [facility] Comment on above: Order Comment: Speci men Type: TISSUE SPECIMENOrdering Facility: [facility] Address: [address] [place] [address] Result Comment: Twel ve H&E stained slides are examined. Intradepartmental consultation with Dr. Savage Pinto who concurs with the above findings. Performed By: #### S ####[facility] LABORATORYCLIA [id number] [address] STATES OF [place] SYNOPTIC REPORT [facility] Comment on above: Order Comment: Speci men Type: TISSUE SPECIMENOrdering Facility: [facility] Address: [address] [place] [address] Result Comment: INVA SIVE CARCINOMA OF THE BREAST: Resection INVASIVE CARCINOMA OF THE BREAST: RESECTION - All Specimens 8th Edition - Protocol posted: 10/16/2023 SPECIMEN Procedure: Lumpectomy with needle localization Specimen Laterality: Right TUMOR Tumor Site: Upper outer quadrant Histologic Type: Invasive lobular carcinoma Histologic Grade (Mobile Histologic Score): Glandular (Acinar) / Tubular Differentiation: Score 3 Nuclear Pleomorphism: Score 2 Mitotic Rate: Score 2 Overall Grade: Grade 2 (scores of 6 or 7) Tumor Size: Greatest dimension of largest invasive focus (Millimeters): 11 mm Additional Dimension (Millimeters): 11 mm Additional Dimension (Millimeters): 8 mm Tumor Focality: Multiple foci of invasive carcinoma Number of Foci: 2 Sizes of Individual Foci in Millimeters (mm): 7 x 5 x 4 Ductal Carcinoma In Situ (DCIS): Not identified Lobular Carcinoma In Situ (LCIS): Present Lymphatic and / or Vascular Invasion: Not identified Dermal Lymphatic and / or Vascular Invasion: No skin present Microcalcifications: Present in non-neoplastic tissue Treatment Effect in the Breast: No known presurgical therapy MARGINS Margin Status for Invasive Carcinoma: All margins negative for invasive carcinoma Distance from Invasive Carcinoma to Closest Margin: 1 mm Closest Margin(s) to Invasive Carcinoma: Inferior REGIONAL LYMPH NODES Regional Lymph Node Status: Not applicable (no regional lymph nodes submitted or found) pTNM CLASSIFICATION (AJCC 8th Edition) Reporting of pT, pN, and (when applicable) pM categories is based on information available to the pathologist at the time the report is issued. As per the AJCC (Chapter 1, 8th Ed.) it is the managing physician's responsibility to establish the final pathologic stage based upon all pertinent information, including but potentially not limited to this pathology report. pT Category: pT1c T Suffix: (m) pN Category: pN not assigned (no nodes submitted or found) SPECIAL STUDIES Estrogen Receptor (ER) Status: Positive (greater than 10% of cells demonstrate nuclear positivity) Percentage of Cells with Nuclear Positivity: 90 % Progesterone Receptor (PgR) Status: Positive Percentage of Cells with Nuclear Positivity: 95 % HER2 (by immunohistochemistry): Negative (Score 0) Testing Performed on Case Number: [id number] Performed By: #### S ####[facility] LABORATORYCLIA [id number] [address] STATES OF [place] Guidance for localization of Breast - righton 04-01-2024 IMPRESSION: Uncomplicated ultrasound-guided needle localization right breast mass. Tube Closing Machine Operator: JACE Transcribe Date/Time: Apr 01 2024 10:00A Dictated by : JUVE VILLANUEVA MD This examination was interpreted and the report reviewed and electronically signed by: JUVE VILLANUEVA MD on Apr 01 2024 10:53AM [facility] RADIOLOGY * * *Final Report* * * DATE OF EXAM: Apr 01 2024 9:59AM [facility] 0600 - [facility] US LOC BREAST RT / PROCEDURE REASON: Malignant neoplasm of upper-outer 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, unspecified e * * * * Physician Interpretation * * * * [facility] US LOC BREAST RT Ordering Physician: REMINGTON SUNG Clinical Statement: Malignant neoplasm of the 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 Comparison 12/25/2023 FINDINGS: Initial sonographic imaging redemonstrates an approximately 8 mm irregular hypoechoic mass in the 11:00 position of the right breast 3 cm from the nipple with associated localization clip from prior biopsy. Consent: Informed consent was obtained for this procedure. Details of informed consent can be found in [facility] under the consent tab. Prior to the procedure, the patient, procedure to be performed, and procedure site were identified . Timeout procedure was performed. The patient was prepped and draped in the usual sterile fashion. 1% lidocaine was used for local anesthesia. Using sonographic guidance, needle localization was performed with a 5 cm modified Kopan's needle from a lateral approach. Ultrasound confirmed needle position passing through the area of concern terminating deep and medial to the mass. The patient tolerated the procedure well without immediate apparent complication [facility] Provider, Vishal Yung - 04/01/2024 * * *Final Report* * * DATE OF EXAM: Apr 01 2024 9:59AM [facility] 0600 - [facility] US LOC BREAST RT / PROCEDURE REASON: Malignant neoplasm of upper-outer 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, unspecified e * * * * Physician Interpretation * * * * [facility] US LOC BREAST RT Ordering Physician: REMINGTON SUNG Clinical Statement: Malignant neoplasm of the 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 Comparison 12/25/2023 FINDINGS: Initial sonographic imaging redemonstrates an approximately 8 mm irregular hypoechoic mass in the 11:00 position of the right breast 3 cm from the nipple with associated localization clip from prior biopsy. Consent: Informed consent was obtained for this procedure. Details of informed consent can be found in [facility] under the consent tab. Prior to the procedure, the patient, procedure to be performed, and procedure site were identified . Timeout procedure was performed. The patient was prepped and draped in the usual sterile fashion. 1% lidocaine was used for local anesthesia. Using sonographic guidance, needle localization was performed with a 5 cm modified Kopan's needle from a lateral approach. Ultrasound confirmed needle position passing through the area of concern terminating deep and medial to the mass. The patient tolerated the procedure well without immediate apparent complication IMPRESSION IMPRESSION: Uncomplicated ultrasound-guided needle localization right breast mass. Tube Closing Machine Operator: PSCB Transcribe Date/Time: Apr 01 2024 10:00A Dictated by : JUVE VILLANUEVA MD This examination was interpreted and the report reviewed and electronically signed by: JUVE VILLANUEVA MD on Apr 01 2024 10:53AM EST [facility] Radiology Study observation (narrative) [facility] US Guidance for localization of Breast - rightOrdered By: [facility] Provider on 04-01-2024 [facility] ANES PREOPon 03-30-2024 ANES PREOP HNO ID: [id number] Author: DAVID JOHNSON APRN.SCRAP DROP ENGINEER Service: ? Author Type: Nurse Practitioner Type: Anesthesia PreOp Filed: 03/30/2024 12:25 Note Text: 73 yo obese female with XH: arthritis, breast cancer, PONV, delayed emergence, lympedema L arm secondary to lumpectomy and node biopsy (radiation and chemo) [facility] CNNURSEon 03-23-2024 CNNURSE Nurse Visit (BRSTMM) LOVE PINO ([id number]) 1950 F TXT Date Time Provider Department 03/23/24 11:00 AM NURSE BREAST SURG [facility] During your visit today, we recorded the following information about you: Giana Velasco RN 03/23/2024 2:17 PM Signed AMBULATORY PATIENT EDUCATION NOTE PRE-OP TEACHING TOPIC: Breast surgery - lumpectomy with needle loc PROCEDURE: Right breast lumpectomy with needle localization READINESS TO LEARN COGNITIVE ABILITY: Alert and oriented MOTIVATION TO LEARN: Eager FAMILY SUPPORT: High - Very involved in pt care INSTRUCTION PROVIDED TO: Patient and family member PATIENT LEARNS BEST BY: Multiple Methods FACTORS AFFECTING LEARNING: None PHYSICAL LIMITATIONS AFFECTING LEARNING: None LEARNING RESPONSE DIAGNOSIS: invasive lobular carcinoma ER/OR +; HER2 - METHOD OF INSTRUCTION: Individual instruction PATIENT / FAMILY RESPONSE: Verbalizes understanding of: Diagnosis, presurgical instructions, day of surgery procedures, and post op instructions. FOLLOW-UP PLAN: post op with Dr Sung is scheduled and patient is aware of the date and time. SUPPLEMENTAL MATERIAL: breast cancer journey guide and cancer center binder REFERRAL (RECOMMENDATION): None; Patient has an established medical oncologist in [place], Dr Vail and will also be seen in [place] for her radiation oncologist. She formally had breast cancer in her left breast and had surgery with Dr Sung. She was also on arimidex x 5 years and received radiation to the right breast. She is very well versed in these areas. Electronically Signed By: Giana Velasco RN In Department: [facility] BREAST SURGERY Allergies As of Date: 03/23/2024 Noted Allergy Reaction PENICILLIN 01/12/2016 10 - Anaphylaxis SULFA (SULFONAMIDE ANTIBIOTICS) 01/12/2016 9 - Itching Date Reviewed: 03/09/2024 Reviewed by: Loly Mckeon LPN - Fully Assessed Reason for Visit: Breast class [Other] Primary Visit Diagnosis: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) [C50.411] Prescriptions as of 03/23/2024 - guaiFENesin (MUCINEX) 600 mg 12 hr tablet Take 1,200 mg by mouth once daily. - Biotin 1 mg tab Take 1 tablet by mouth every other day. - naproxen sodium (ALEVE ORAL) Take 1 tablet by mouth two times a day. - docusate sodium (COLACE ORAL) Take 1 tablet by mouth once daily. - CALCIUM CARBONATE (TUMS ORAL) Take 1-2 tablets by mouth once daily. - Cholecalciferol, Vitamin D3, 50 mcg (2,000 unit) cap Take 1 capsule by mouth once daily. - Csuimztu-Wdfuyrh-Srgu-L utein tab Take 1 tablet by mouth once daily. Facility-Administered Medications as of 03/23/2024 - clindamycin iv piggyback 900 mg in D5W 50 mL (CLEOCIN) Problem List As Of Date 03/23/2024 Noted Resolved Breast cancer of upper-outer quadrant of left f*01/12/2016 Lymphedema of left upper extremity [I89.0] 05/14/2016 Malignant neoplasm of upper-outer quadrant of l*11/06/2016 Medicare annual wellness visit, subsequent [Z00*02/10/2019 Osteopenia, senile [M85.80] 02/10/2019 Venous insufficiency (chronic) (peripheral) [I8*03/09/2019 Elevated blood sugar [R73.9] 09/02/2020 Medication management [Z79.899] 09/02/2020 Cystocele, midline [N81.11] 09/02/2020 History of colonic polyps [Z86.0100] 10/28/2020 12/19/2020 Partial rectal prolapse [K62.3] 03/14/2021 Hemorrhoids [K64.9] 03/14/2021 Obesity, Class I, BMI 30-34.9 [E66.811] 04/03/2021 Rectocele [N81.6] 04/06/2021 Incomplete uterovaginal prolapse [N81.2] 04/06/2021 Mixed incontinence [N39.46] 05/12/2021 Advance directive discussed with patient [Z71.8*12/26/2021 Age-related osteoporosis without current pathol*05/20/2023 Primary malignant neoplasm of upper outer quadr*03/09/2024 Estrogen receptor positive status (ER+) [Z17.0] 03/09/2024 Personal history of malignant neoplasm of breas*03/09/2024 Encounter Status:Closed by GIANA VELASCO on 03/23/24 [facility] Jon 03-19-2024 CNPN Telephone (KASANDRA) LOVE PINO ([id number]) 1950 F TXT Date Time Provider Department 03/19/24 IBRAHIMA DHALIWAL During your visit today, we recorded the following information about you: Ibrahima Dhaliwal DO 03/19/2024 2:36 PM Signed She is scheduled for right breast lumpectomy on 04/01. Please schedule with me for establish complex or new patient visit week of April 13. DO Josiane Darnell Angela 03/19/2024 3:42 PM Signed Spoke with patient and scheduled in est.complex slot on 04/16 Zayda Joshua Loly Mckeon LPN 04/07/2024 1:15 PM Signed ----- Message from Remington Sung MD sent at 04/06/2024 7:31 AM EST ----- Please let her know that her margins were all clear on her lumpectomy. Good news. Loly Mckeon LPN 04/07/2024 1:16 PM Addendum ----- Message from Remington Sung MD sent at 04/06/2024 7:31 AM EST ----- Please let her know that her margins were all clear on her lumpectomy. Good news. Patient verbalized understanding of her pathology Allergies As of Date: 03/19/2024 Noted Allergy Reaction PENICILLIN 01/12/2016 10 - Anaphylaxis SULFA (SULFONAMIDE ANTIBIOTICS) 01/12/2016 9 - Itching Date Reviewed: 03/09/2024 Reviewed by: Loly Mckeon LPN - Fully Assessed Reason for Visit: Follow Up [171] Prescriptions as of 04/07/2024 - HYDROcodone-acetaminoph en (NORCO) 5-325 mg per tablet Take 1-2 tablets by mouth every 4 hours as needed for pain for up to 7 days. - guaiFENesin (MUCINEX) 600 mg 12 hr tablet Take 1,200 mg by mouth once daily. LD 03/24 - Biotin 1 mg tab Take 1 tablet by mouth every other day. LD 03/24 - naproxen sodium (ALEVE ORAL) Take 1 tablet by mouth once daily. PT STATES WILL STOP TAKING ALEVE WITH LD BEING 03/26. - docusate sodium (COLACE ORAL) Take 1 tablet by mouth once daily. - CALCIUM CARBONATE (TUMS ORAL) Take 1-2 tablets by mouth once daily. LD 03/24 - Cholecalciferol, Vitamin D3, 50 mcg (2,000 unit) cap Take 1 capsule by mouth once daily. LD 03/24 - Zkzoopim-Gxxjnfx-Fwmy-L utein tab Take 1 tablet by mouth once daily. LD 03/24 Problem List As Of Date 03/19/2024 Noted Resolved Breast cancer of upper-outer quadrant of left f*01/12/2016 Lymphedema of left upper extremity [I89.0] 05/14/2016 Malignant neoplasm of upper-outer quadrant of l*11/06/2016 Medicare annual wellness visit, subsequent [Z00*02/10/2019 Osteopenia, senile [M85.80] 02/10/2019 Venous insufficiency (chronic) (peripheral) [I8*03/09/2019 Elevated blood sugar [R73.9] 09/02/2020 Medication management [Z79.899] 09/02/2020 Cystocele, midline [N81.11] 09/02/2020 History of colonic polyps [Z86.0100] 10/28/2020 12/19/2020 Partial rectal prolapse [K62.3] 03/14/2021 Hemorrhoids [K64.9] 03/14/2021 Obesity, Class I, BMI 30-34.9 [E66.811] 04/03/2021 Rectocele [N81.6] 04/06/2021 Incomplete uterovaginal prolapse [N81.2] 04/06/2021 Mixed incontinence [N39.46] 05/12/2021 Advance directive discussed with patient [Z71.8*12/26/2021 Age-related osteoporosis without current pathol*05/20/2023 Primary malignant neoplasm of upper outer quadr*03/09/2024 Estrogen receptor positive status (ER+) [Z17.0] 03/09/2024 Personal history of malignant neoplasm of breas*03/09/2024 Encounter Status:Closed by LOLY MCKEON on 04/07/24 [facility] GENETIC SENDOUTon 03-19-2024 Genetic Test Name CancerNext-Expanded Panel with RNA Invalid Interpretation Code [facility] Comment on above: Order Comment: Name of Test:->CancerNext-Expanded Panel with RNA Billing type:->Direct Specimen Type->Blood Specimen requirements:->3-5 ml EDTA and PAX tubes Specimen Tube->EDTA and PAX What is the sendout facility name, if known?->[facility] Invalid Interpretation Code [facility] Comment on above: Order Comment: Name of Test:->CancerNext-Expanded Panel with RNA Billing type:->Direct Specimen Type->Blood Specimen requirements:->3-5 ml EDTA and PAX tubes Specimen Tube->EDTA and PAX What is the sendout facility name, if known?->[facility] Miscellaneous Results [facility] Invalid Interpretation Code [facility] Comment on above: Order Comment: Name of Test:->CancerNext-Expanded Panel with RNA Billing type:->Direct Specimen Type->Blood Specimen requirements:->3-5 ml EDTA and PAX tubes Specimen Tube->EDTA and PAX What is the sendout facility name, if known?->Natry Jon 03-18-2024 CNPN Telephone ([facility]) LOVE PINO ([id number]) 1950 F TXT Date Time Provider Department 03/18/24 LOLY MCKEON [facility] During your visit today, we recorded the following information about you: Loly Mckeon LPN 03/18/2024 8:21 AM Addendum ----- Message from Remington Sung MD sent at 03/18/2024 7:02 AM EST ----- Please let her know that her axillary ultrasound showed normal lymph nodes. Great news. Patient aware of her normal nodes. Surgery scheduled 04/01/24 patient verbalized understanding Allergies As of Date: 03/18/2024 Noted Allergy Reaction PENICILLIN 01/12/2016 10 - Anaphylaxis SULFA (SULFONAMIDE ANTIBIOTICS) 01/12/2016 9 - Itching Date Reviewed: 03/09/2024 Reviewed by: Loly Mckeon LPN - Fully Assessed Prescriptions as of 03/18/2024 - guaiFENesin (MUCINEX) 600 mg 12 hr tablet Take 1,200 mg by mouth once daily. - Biotin 1 mg tab Take 1 tablet by mouth every other day. - naproxen sodium (ALEVE ORAL) Take 1 tablet by mouth two times a day. - docusate sodium (COLACE ORAL) Take 1 tablet by mouth once daily. - CALCIUM CARBONATE (TUMS ORAL) Take 1-2 tablets by mouth once daily. - Cholecalciferol, Vitamin D3, 50 mcg (2,000 unit) cap Take 1 capsule by mouth once daily. - Shcyktfo-Vujyvbw-Clua-L utein tab Take 1 tablet by mouth once daily. Problem List As Of Date 03/18/2024 Noted Resolved Breast cancer of upper-outer quadrant of left f*01/12/2016 Lymphedema of left upper extremity [I89.0] 05/14/2016 Malignant neoplasm of upper-outer quadrant of l*11/06/2016 Medicare annual wellness visit, subsequent [Z00*02/10/2019 Osteopenia, senile [M85.80] 02/10/2019 Venous insufficiency (chronic) (peripheral) [I8*03/09/2019 Elevated blood sugar [R73.9] 09/02/2020 Medication management [Z79.899] 09/02/2020 Cystocele, midline [N81.11] 09/02/2020 History of colonic polyps [Z86.0100] 10/28/2020 12/19/2020 Partial rectal prolapse [K62.3] 03/14/2021 Hemorrhoids [K64.9] 03/14/2021 Obesity, Class I, BMI 30-34.9 [E66.811] 04/03/2021 Rectocele [N81.6] 04/06/2021 Incomplete uterovaginal prolapse [N81.2] 04/06/2021 Mixed incontinence [N39.46] 05/12/2021 Advance directive discussed with patient [Z71.8*12/26/2021 Age-related osteoporosis without current pathol*05/20/2023 Primary malignant neoplasm of upper outer quadr*03/09/2024 Estrogen receptor positive status (ER+) [Z17.0] 03/09/2024 Personal history of malignant neoplasm of breas*03/09/2024 Encounter Status:Closed by LOLY MCKEON on 03/18/24 Normal [facility] CBC W Auto Differential pane l (Bld)on 03-17-2024 Basophils (Bld) [#/Vol] 0.04 10*3/uL Normal <0.11 [facility] Comment on above: Order Comment: Speci men Type: BLOOD SPECIMEN Ordering Facility: [facility] Address: [address] [place] [address] Performed By: #### 5 7021-8 #### [facility] CLIA [id number] [address] [place] [address] [place] Basophils/100 WBC (Bld) 0.7 % Normal [facility] Comment on above: Order Comment: Speci men Type: BLOOD SPECIMEN Ordering Facility: [facility] Address: [address] [place] [address] Performed By: #### 5 7021-8 #### [facility] CLIA [id number] [address] [place] [address] [place] Differential cell count method Nom (Bld) Auto Normal [facility] Comment on above: Order Comment: Speci men Type: BLOOD SPECIMEN Ordering Facility: [facility] Address: [address] [place] [address] Performed By: #### 5 7021-8 #### [facility] CLIA [id number] [address] [place] [address] [place] Eosinophils (Bld) [#/Vol] 0.14 10*3/uL Normal <0.46 [facility] Comment on above: Order Comment: Speci men Type: BLOOD SPECIMEN Ordering Facility: [facility] Address: [address] [place] [address] Performed By: #### 5 7021-8 #### [facility] CLIA [id number] [address] [place] [address] [place] Eosinophils/100 WBC (Bld) 2.4 % Normal [facility] Comment on above: Order Comment: Speci men Type: BLOOD SPECIMEN Ordering Facility: [facility] Address: [address] [place] [address] Performed By: #### 5 7021-8 #### [facility] CLIA [id number] [address] [place] [address] [place] Erythrocyte distribution width (RBC) [Ratio] 12.8 % Normal 11.5-15.0 [facility] Comment on above: Order Comment: Speci men Type: BLOOD SPECIMEN Ordering Facility: [facility] Address: [address] [place] [address] Performed By: #### 5 7021-8 #### [facility] CLIA [id number] [address] [place] [address] [place] Hematocrit (Bld) [Volume fraction] 43.6 % Normal 36.0-46.0 [facility] Comment on above: Order Comment: Speci men Type: BLOOD SPECIMEN Ordering Facility: [facility] Address: [address] [place] [address] Performed By: #### 5 7021-8 #### [facility] CLIA [id number] [address] [place] [address] [place] Hemoglobin (Bld) [Mass/Vol] 13.8 g/dL Normal 11.5-15.5 [facility] Comment on above: Order Comment: Speci men Type: BLOOD SPECIMEN Ordering Facility: [facility] Address: [address] [place] [address] Performed By: #### 5 7021-8 #### [facility] CLIA [id number] [address] [place] [address] [place] Immature granulocytes (Bld) [#/Vol] 10*3/uL Normal <0.10 [facility] Comment on above: Order Comment: Speci men Type: BLOOD SPECIMEN Ordering Facility: [facility] Address: [address] [place] [address] Performed By: #### 5 7021-8 #### [facility] CLIA [id number] [address] [place] [address] [place] Immature granulocytes/100 WBC (Bld) 0.2 % Normal [facility] Comment on above: Order Comment: Speci men Type: BLOOD SPECIMEN Ordering Facility: [facility] Address: [address] [place] [address] Performed By: #### 5 7021-8 #### [facility] CLIA [id number] [address] [place] [address] [place] Lymphocytes (Bld) [#/Vol] 2.36 10*3/uL Normal 1.00-4.00 [facility] Comment on above: Order Comment: Speci men Type: BLOOD SPECIMEN Ordering Facility: [facility] Address: [address] [place] [address] Performed By: #### 5 7021-8 #### [facility] CLIA [id number] [address] [place] [address] [place] Lymphocytes/100 WBC (Bld) 39.9 % Normal [facility] Comment on above: Order Comment: Speci men Type: BLOOD SPECIMEN Ordering Facility: [facility] Address: [address] [place] [address] Performed By: #### 5 7021-8 #### [facility] CLIA [id number] [address] [place] [address] [place] MCH (RBC) [Entitic mass] 28.9 pg Normal 26.0-34.0 [facility] Comment on above: Order Comment: Speci men Type: BLOOD SPECIMEN Ordering Facility: [facility] Address: [address] [place] [address] Performed By: #### 5 7021-8 #### [facility] CLIA [id number] [address] [place] [address] [place] MCHC (RBC) [Mass/Vol] 31.7 g/dL Normal 30.5-36.0 [facility] Comment on above: Order Comment: Speci men Type: BLOOD SPECIMEN Ordering Facility: [facility] Address: [address] [place] [address] Performed By: #### 5 7021-8 #### [facility] CLIA [id number] [address] [place] [address] [place] MCV (RBC) [Entitic vol] 91.4 fL Normal 80.0-100.0 [facility] Comment on above: Order Comment: Speci men Type: BLOOD SPECIMEN Ordering Facility: [facility] Address: [address] [place] [address] Performed By: #### 5 7021-8 #### [facility] CLIA [id number] [address] [place] [address] [place] Monocytes (Bld) [#/Vol] 0.74 10*3/uL Normal <0.87 [facility] Comment on above: Order Comment: Speci men Type: BLOOD SPECIMEN Ordering Facility: [facility] Address: [address] [place] [address] Performed By: #### 5 7021-8 #### [facility] CLIA [id number] [address] [place] [address] [place] Monocytes/100 WBC (Bld) 12.5 % Normal [facility] Comment on above: Order Comment: Speci men Type: BLOOD SPECIMEN Ordering Facility: [facility] Address: [address] [place] [address] Performed By: #### 5 7021-8 #### [facility] CLIA [id number] [address] [place] [address] [place] Neutrophils (Bld) [#/Vol] 2.63 10*3/uL Normal 1.45-7.50 [facility] Comment on above: Order Comment: Speci men Type: BLOOD SPECIMEN Ordering Facility: [facility] Address: [address] [place] [address] Performed By: #### 5 7021-8 #### [facility] CLIA [id number] [address] [place] [address] [place] Neutrophils/100 WBC (Bld) 44.3 % Normal [facility] Comment on above: Order Comment: Speci men Type: BLOOD SPECIMEN Ordering Facility: [facility] Address: [address] [place] [address] Performed By: #### 5 7021-8 #### [facility] CLIA [id number] [address] [place] [address] [place] Nucleated RBC (Bld) [#/Vol] 10*3/uL Normal <0.01 [facility] Comment on above: Order Comment: Speci men Type: BLOOD SPECIMEN Ordering Facility: [facility] Address: [address] [place] [address] Performed By: #### 5 7021-8 #### [facility] CLIA [id number] [address] [place] [address] [place] Nucleated RBC/100 WBC (Bld) [Ratio] 0.0 /100 WBC Normal [facility] Comment on above: Order Comment: Speci men Type: BLOOD SPECIMEN Ordering Facility: [facility] Address: [address] [place] [address] Performed By: #### 5 7021-8 #### [facility] CLIA [id number] [address] [place] [address] [place] Platelet mean volume (Bld) [Entitic vol] 9.0 fL Normal 9.0-12.7 [facility] Comment on above: Order Comment: Speci men Type: BLOOD SPECIMEN Ordering Facility: [facility] Address: [address] [place] [address] Performed By: #### 5 7021-8 #### [facility] CLIA [id number] [address] [place] [address] [place] Platelets (Bld) [#/Vol] 338 10*3/uL Normal 150-400 [facility] Comment on above: Order Comment: Speci men Type: BLOOD SPECIMEN Ordering Facility: [facility] Address: [address] [place] [address] Performed By: #### 5 7021-8 #### [facility] CLIA [id number] [address] [place] [address] [place] RBC (Bld) [#/Vol] 4.77 10*6/uL Normal 3.90-5.20 [facility] Comment on above: Order Comment: Speci men Type: BLOOD SPECIMEN Ordering Facility: [facility] Address: [address] [place] [address] Performed By: #### 5 7021-8 #### [facility] CLIA [id number] [address] [place], [place] [id number] [place] WBC (Bld) [#/Vol] 5.92 10*3/uL Normal 3.70-11.00 [facility] Comment on above: Order Comment: Speci men Type: BLOOD SPECIMEN Ordering Facility: [facility] Address: [address] [place] [address] Performed By: #### 5 7021-8 #### [facility] CLIA [id number] [address] [place] [address] OF [facility] Comprehensive metabolic 2000 panelon 03-17-2024 Albumin [Mass/Vol] 3.6 g/dL Normal 3.2-5.0 [facility] Comment on above: Order Comment: Speci men Type: BLOOD SPECIMEN Ordering Facility: [facility] Address: [address] [place] [address] Performed By: #### 2 4323-8 #### [facility] CLIA [id number] [address] [place] [address] [place] ALP [Catalytic activity/Vol] 97 U/L Normal 45-117 [facility] Comment on above: Order Comment: Speci men Type: BLOOD SPECIMEN Ordering Facility: [facility] Address: [address] [place] [address] Performed By: #### 2 4323-8 #### [facility] CLIA [id number] [address] [place] [address] ALT [Catalytic activity/Vol] 21 U/L Normal 13-61 [facility] Comment on above: Order Comment: Speci men Type: BLOOD SPECIMEN Ordering Facility: [facility] Address: [address] [place] [address] Result Comment: Resu lts may be falsely depressed after the administration of Sulfasalazine and/or Sulfapyridine. Performed By: #### 2 4323-8 #### [facility] CLIA [id number] [address] [place] [address] [place] [facility] Anion gap [Moles/Vol] 5 mmol/L Normal 5-16 [facility] Comment on above: Order Comment: Speci men Type: BLOOD SPECIMEN Ordering Facility: [facility] Address: [facility] [place] [address] Performed By: #### 2 4323-8 #### [facility] CLIA [id number] [address] [place] [address] [place] AST [Catalytic activity/Vol] 21 U/L Normal 8-34 [facility] Comment on above: Order Comment: Speci men Type: BLOOD SPECIMEN Ordering Facility: [facility] Address: [address] [place] [address] Result Comment: Resu lts may be falsely depressed after the administration of Sulfasalazine and/or Sulfapyridine. Performed By: #### 2 4323-8 #### [facility] CLIA [id number] [address] [place] [address] [place] Bilirubin [Mass/Vol] 0.2 mg/dL Normal 0.2-1.0 [facility] Comment on above: Order Comment: Speci men Type: BLOOD SPECIMEN Ordering Facility: [facility] Address: [address] [place] [address] Performed By: #### 2 4323-8 #### [facility] CLIA [id number] [address] [place] [address] [place] Calcium [Mass/Vol] 9.9 mg/dL Normal 8.5-10.5 [facility] Comment on above: Order Comment: Speci men Type: BLOOD SPECIMEN Ordering Facility: [facility] Address: [address] [place] [address] Performed By: #### 2 4323-8 #### [facility] CLIA [id number] [address] [place] [address] [place] Chloride [Moles/Vol] 107 mmol/L Normal 98-107 [facility] Comment on above: Order Comment: Speci men Type: BLOOD SPECIMEN Ordering Facility: [facility] Address: [address] [place] [address] Performed By: #### 2 4323-8 #### [facility] CLIA [id number] [address] [place] [address] [place] CO2 [Moles/Vol] 30 mmol/L Normal 21-32 [facility] Comment on above: Order Comment: Efraín peck Type: BLOOD SPECIMEN Ordering Facility: [facility] Address: [address] [place] [address] Performed By: #### 2 4323-8 #### [facility] CLIA [id number] [address] [place] [address] [place] Creatinine [Mass/Vol] 0.64 mg/dL Normal 0.51-0.95 [facility] Comment on above: Order Comment: Efraín peck Type: BLOOD SPECIMEN Ordering Facility: [facility] Address: [address] [place] [address] Result Comment: Alessandra ents receiving either N-Acetylcysteine (NAC) or Metamizole prior to venipuncture, may have falsely depressed results. Performed By: #### 2 4323-8 #### [facility] CLIA [id number] [address] [place] [address] Creatinine and Glomerular filtration rate.predicted panel (S/P/Bld) 95 mL/min/1.73m??? Normal >=60 [facility] Comment on above: Order Comment: Efraín peck Type: BLOOD SPECIMEN Ordering Facility: [facility] Address: [address] [place] [address] Result Comment: Dorota mated Glomerular Filtration Rate (eGFR) is calculated using the 2020 CKD-EPI creatinine equation. This equation utilizes serum creatinine, sex, and age as parameters. The creatinine assay has traceable calibration to isotope dilution-mass spectrometry. Refer to KDIGO guidelines for clinical interpretation. In patients with unstable renal function, e.g. those with acute kidney injury, the eGFR may not accurately reflect actual GFR. Performed By: #### 2 4323-8 #### [facility] CLIA [id number] [address] [place] [address] [place] Glucose [Mass/Vol] 87 mg/dL Normal 70-100 [facility] Comment on above: Order Comment: Efraín peck Type: BLOOD SPECIMEN Ordering Facility: [facility] Address: [address] [place] [address] Result Comment: The [place] [employer] (ADA) provides guidance for cutoff values for fasting glucose and random glucose. The ADA defines fasting as no caloric intake for at least 8 hours. Fasting plasma glucose results between 100 to 125 mg/dL indicate increased risk for diabetes (prediabetes). Fasting plasma glucose results greater than or equal to 126 mg/dL meet the criteria for diagnosis of diabetes. In the absence of unequivocal hyperglycemia, results should be confirmed by repeat testing. In a patient with classic symptoms of hyperglycemia or hyperglycemic crisis, random plasma glucose results greater than or equal to 200 mg/dL meet the criteria for diagnosis of diabetes. Reference: Standards of Medical Care in Diabetes 2016, [place] [employer]. Diabetes Care. 2016.39(Suppl 1). Results may be falsely elevated after the administration of Sulfapyridine. Results may be falsely depressed after the administration of Sulfasalazine. Performed By: #### 2 4323-8 #### [facility] CLIA [id number] [address] [place] [address] [place] Potassium [Moles/Vol] 3.9 mmol/L Normal 3.5-5.1 [facility] Comment on above: Order Comment: Speci men Type: BLOOD SPECIMEN Ordering Facility: [facility] Address: [address] [place] [address] Performed By: #### 2 4323-8 #### [facility] CLIA [id number] [address] [place] [address] [place] Protein [Mass/Vol] 6.9 g/dL Normal 6.0-8.5 [facility] Comment on above: Order Comment: Speci men Type: BLOOD SPECIMEN Ordering Facility: [facility] Address: [address] [place] [address] Performed By: #### 2 4323-8 #### [facility] CLIA [id number] [address] [place] [address] [place] Sodium [Moles/Vol] 142 mmol/L Normal 136-145 [facility] Comment on above: Order Comment: Speci men Type: BLOOD SPECIMEN Ordering Facility: [facility] Address: [address] [place] [address] Performed By: #### 2 4323-8 #### [facility] CLIA [id number] [address] [place] [address] [place] Urea nitrogen [Mass/Vol] 16 mg/dL Normal 11-21 [facility] Comment on above: Order Comment: Speci men Type: BLOOD SPECIMEN Ordering Facility: [facility] Address: [facility] [place] [address] Performed By: #### 2 4323-8 #### [facility] CLIA [id number] [address] [place] [address] [facility] [place] EKGon 03-17-2024 Atrial Rate 76 BPM [facility] Calculated P [place] 49 degrees [facility] Calculated R [place] 0 degrees [facility] Calculated T [place] 4 degrees [facility] P-R Interval 196 ms [facility] QRS Duration 66 ms [facility] QT Interval 344 ms [facility] QTC Calculation (Bazett) 387 ms [facility] Ventricular Rate 76 BPM [facility] NAME : KELLEY PINO PID : [id number] : 1950 Gender : Female Race : ORD : Procedure Date : Mar 17 2024 14:29:45 Edit Date : Mar 17 2024 21:57:56 Diagnosis: Normal sinus rhythm Inferior infarct , age undetermined Poor anterior R-wave progression Abnormal ECG Compared to prior tracing Inferior infarct is now present Confirmed by HARINI GARCÍA MD ([id number]) on 03/17/2024 9:57:52 PM Test Reason : rt Location : 18 : [facility] Overread By : HARINI GARCÍA MD Edited By : HARINI GARCÍA MD Referred By : , Acquired by : TRACY DUARTE [facility] Electrocardiogram Ventricular Rate : 7 6 BPM Atrial Rate : 76 BPM P-R Interval : 196 ms QRS Duration : 66 ms Q-T Interval : 344 ms QTC Calculation(Bazett) : 387 ms Calculated P [place] : 49 degrees Calculated R [place] : 0 degrees Calculated T [place] : 4 degrees Normal sinus rhythm Inferior infarct , age undetermined Poor anterior R-wave progression Abnormal ECG Compared to prior tracing Inferior infarct is now present Confirmed by HARINI GARCÍA MD ([id number]) on 03/17/2024 9:57:52 PM NAME : LOVE PINO PID : [id number] : 1950 Gender : Female Race : ORD : Procedure Date : Mar 17 2024 14:29:45 Edit Date : Mar 17 2024 21:57:56 Diagnosis: Normal sinus rhythm Inferior infarct , age undetermined Poor anterior R-wave progression Abnormal ECG Compared to prior tracing Inferior infarct is now present Confirmed by HARINI GARCÍA MD ([id number]) on 03/17/2024 9:57:52 PM Test Reason : rt Location : 18 : CDL Overread By : HARINI GARCÍA MD Edited By : HARINI GARCÍA MD Referred By : , Acquired by : TRACY DUARTE [facility] LDH SerPl-cCncon 03-17-2024 LDH [Catalytic activity/Vol] 171 U/L Normal 84-246 [facility] Comment on above: Order Comment: Speci men Type: BLOOD SPECIMEN Ordering Facility: [facility] Address: [address] [place] [address] Performed By: #### 2 [id number] #### [facility] CLIA [id number] [facility] [place] [address] [place] [facility] US AXILLA ONLY RTon 11- [facility] US AXILLA ONLY RT * * *Final Report* * * DATE OF EXAM: Mar 17 2024 1:55PM [facility] 0592 - [facility] US AXILLA ONLY RT / PROCEDURE REASON: multiple diagnoses * * * * Physician Interpretation * * * * [address] [place] [address] HISTORY: Patient is 73 years old and is seen for diagnostic evaluation of the right axilla. 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 COMPARISON STUDIES: The present examination has been compared to prior imaging studies dated 01/03/2024 (mammogram), 01/29/2024 (mammogram), 01/29/2024 (ultrasound), 02/24/2024 (mammogram) and 02/24/2024. ULTRASOUND TECHNIQUE: Targeted ultrasound of the right axilla was performed. Manzanares scale images were saved. ULTRASOUND FINDINGS: No suspicious lymph node or other sonographic abnormality in the right axilla. BI-RADS Category 1: Negative Interpreting Radiologist: Cassy Chowdhury M.D. Electronically signed on: 03/17/2024 Tube Closing Machine Operator: DARIAN [employer] Date/Time: Mar 17 2024 1:37P Dictated by : CASSY CHOWDHURY MD This examination was interpreted and the report reviewed and electronically signed by: CASSY CHOWDHURY MD on Mar 17 2024 3:27PM EST [id number] [facility] US Axilla - righton 03-17-20 24 * * *Final Report* * * DATE OF EXAM: Mar 17 2024 1:55PM [facility] 0592 - [place] US AXILLA ONLY RT / PROCEDURE REASON: multiple diagnoses * * * * Physician Interpretation * * * * [facility] [address] [facility] [place] [address] HISTORY: Patient is 73 years old and is seen for diagnostic evaluation of the right axilla. 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 COMPARISON STUDIES: The present examination has been compared to prior imaging studies dated 01/03/2024 (mammogram), 01/29/2024 (mammogram), 01/29/2024 (ultrasound), 02/24/2024 (mammogram) and 02/24/2024. ULTRASOUND TECHNIQUE: Targeted ultrasound of the right axilla was performed. Manzanares scale images were saved. ULTRASOUND FINDINGS: No suspicious lymph node or other sonographic abnormality in the right axilla. BI-RADS Category 1: Negative Interpreting Radiologist: Cassy Chowdhury M.D. Electronically signed on: 03/17/2024 Tube Closing Machine Operator: DARIAN [employer] Date/Time: Mar 17 2024 1:37P Dictated by : CASSY CHOWDHURY MD This examination was interpreted and the report reviewed and electronically signed by: CASSY CHOWDHURY MD on Mar 17 2024 3:27PM EST [facility] Provider, [facility] Peng [facility] - 03/17/2024 * * *Final Report* * * DATE OF EXAM: Mar 17 2024 1:55PM [facility] 0592 - [place] US AX[place]A ONLY RT / PROCEDURE REASON: multiple diagnoses * * * * Physician Interpretation * * * * [place] [id number] [facility] [place] [address] HISTORY: Patient is 73 years old and is seen for diagnostic evaluation of the right axilla. 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 COMPARISON STUDIES: The present examination has been compared to prior imaging studies dated 01/03/2024 (mammogram), 01/29/2024 (mammogram), 01/29/2024 (ultrasound), 02/24/2024 (mammogram) and 02/24/2024. ULTRASOUND TECHNIQUE: Targeted ultrasound of the right axilla was performed. Manzanares scale images were saved. ULTRASOUND FINDINGS: No suspicious lymph node or other sonographic abnormality in the right axilla. BI-RADS Category 1: Negative Interpreting Radiologist: Cassy Chowdhury M.D. Electronically signed on: 03/17/2024 Tube Closing Machine Operator: DARIAN Transcribe Date/Time: Mar 17 2024 1:37P Dictated by : CASSY CHOWDHURY MD This examination was interpreted and the report reviewed and electronically signed by: CASSY CHOWDHURY MD on Mar 17 2024 3:27PM EST [facility] Radiology Study observation (narrative) [facility] US Axilla - rightOrdered By: [facility] Provider on 03-17-2024 [facility] XR CHEST 2V FRONTAL/LATon XR CHEST 2V FRONTAL/LAT * * *Final Report* * * DATE OF EXAM: Mar 17 2024 3:06PM RHX 5291 - XR CHEST 2V FRONTAL/LAT / PROCEDURE REASON: multiple diagnoses * * * * Physician Interpretation * * * * EXAMINATION: CHEST RADIOGRAPH (2 VIEW FRONTAL and LATERAL) CLINICAL HISTORY: 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) Estrogen receptor positive status (ER+) MQ: [id number] EXAM DATE/TIME: 03/17/2024 3:06 PM COMPARISON: 12/14/2015 RESULT: Lines, tubes, and devices: None. Lungs and pleura: The costophrenic angles are clear. No acute infiltrates or congestion is seen. Cardiomediastinal silhouette: The cardiac silhouette is at the upper limits of normal in size. The aorta is tortuous. Bones and soft tissues: There are surgical clips in the left axillary region. IMPRESSION: No acute abnormalities. Tube Closing Machine Operator: JACE Transcribe Date/Time: Mar 19 2024 12:03P Dictated by : YOSEPH VELÁSQUEZ MD This examination was interpreted and the report reviewed and electronically signed by: YOSEPH VELÁSQUEZ MD on Mar 19 2024 12:04PM EST [id number] [facility] CNPNon 03-15-2024 CNPN Telephone (HEMAWS) LOVE PINO ([id number]) 1950 F TXT Date Time Provider Department 03/15/24 IBRAHIMA DHALIWAL During your visit today, we recorded the following information about you: Ibrahima Dhaliwal DO 03/15/2024 10:54 AM Signed Her surgical pathology was copied to me by Dr. Meeks. New small right-sided breast cancer. Breast cancer. She saw a surgeon at [facility] who ordered an ultrasound of the right axilla which is scheduled for Saturday. Surgical plan will follow results of that. Needs to see me as est complex in about 6-8 weeks. DO Rodrigo Darnell Pamela S, LPN 03/16/2024 8:19 AM Signed Spoke with pt. Informed Her surgical pathology was copied to Dr. Dhaliwal by Dr. Meeks. New small right-sided breast cancer. Breast cancer. She saw a surgeon at [facility] who ordered an ultrasound of the right axilla which is scheduled for Saturday. Surgical plan will follow results of that. Needs to see Dr. Dhaliwal as est complex in about 6-8 weeks. Pt. Voiced understanding and will contact office to schedule that appt. After she is aware of her surgical plan. MALIKA Mcginnis Adilia Church 03/18/2024 11:44 AM Signed Surgery is scheduled for 04/01. Scheduled follow up with patient Allergies As of Date: 03/15/2024 Noted Allergy Reaction PENICILLIN 01/12/2016 10 - Anaphylaxis SULFA (SULFONAMIDE ANTIBIOTICS) 01/12/2016 9 - Itching Date Reviewed: 03/09/2024 Reviewed by: Loly Mckeon LPN - Fully Assessed Reason for Visit: Follow Up [171] Prescriptions as of 03/18/2024 - guaiFENesin (MUCINEX) 600 mg 12 hr tablet Take 1,200 mg by mouth once daily. - Biotin 1 mg tab Take 1 tablet by mouth every other day. - naproxen sodium (ALEVE ORAL) Take 1 tablet by mouth two times a day. - docusate sodium (COLACE ORAL) Take 1 tablet by mouth once daily. - CALCIUM CARBONATE (TUMS ORAL) Take 1-2 tablets by mouth once daily. - Cholecalciferol, Vitamin D3, 50 mcg (2,000 unit) cap Take 1 capsule by mouth once daily. - Vefzdtay-Krhhnal-Veht-L utein tab Take 1 tablet by mouth once daily. Problem List As Of Date 03/15/2024 Noted Resolved Breast cancer of upper-outer quadrant of left f*01/12/2016 Lymphedema of left upper extremity [I89.0] 05/14/2016 Malignant neoplasm of upper-outer quadrant of l*11/06/2016 Medicare annual wellness visit, subsequent [Z00*02/10/2019 Osteopenia, senile [M85.80] 02/10/2019 Venous insufficiency (chronic) (peripheral) [I8*03/09/2019 Elevated blood sugar [R73.9] 09/02/2020 Medication management [Z79.899] 09/02/2020 Cystocele, midline [N81.11] 09/02/2020 History of colonic polyps [Z86.0100] 10/28/2020 12/19/2020 Partial rectal prolapse [K62.3] 03/14/2021 Hemorrhoids [K64.9] 03/14/2021 Obesity, Class I, BMI 30-34.9 [E66.811] 04/03/2021 Rectocele [N81.6] 04/06/2021 Incomplete uterovaginal prolapse [N81.2] 04/06/2021 Mixed incontinence [N39.46] 05/12/2021 Advance directive discussed with patient [Z71.8*12/26/2021 Age-related osteoporosis without current pathol*05/20/2023 Primary malignant neoplasm of upper outer quadr*03/09/2024 Estrogen receptor positive status (ER+) [Z17.0] 03/09/2024 Personal history of malignant neoplasm of breas*03/09/2024 Encounter Status:Closed by IRLANDA RAMIREZ on 03/16/24 [facility] CNPNon 03-10-2024 CNPN Telephone (BRSM) LOVE PINO ([id number]) 1950 F TXT Date Time Provider Department 03/10/24 LOLY MCKEON [facility] During your visit today, we recorded the following information about you: Loly Mckeon LPN 03/10/2024 8:24 AM Signed Faxed all info To [facility] to set up appointment for patient Allergies As of Date: 03/10/2024 Noted Allergy Reaction PENICILLIN 01/12/2016 10 - Anaphylaxis SULFA (SULFONAMIDE ANTIBIOTICS) 01/12/2016 9 - Itching Date Reviewed: 03/09/2024 Reviewed by: Loly Mckeon LPN - Fully Assessed Prescriptions as of 03/10/2024 - guaiFENesin (MUCINEX) 600 mg 12 hr tablet Take 1,200 mg by mouth once daily. - Biotin 1 mg tab Take 1 tablet by mouth every other day. - naproxen sodium (ALEVE ORAL) Take 1 tablet by mouth two times a day. - docusate sodium (COLACE ORAL) Take 1 tablet by mouth once daily. - CALCIUM CARBONATE (TUMS ORAL) Take 1-2 tablets by mouth once daily. - Cholecalciferol, Vitamin D3, 50 mcg (2,000 unit) cap Take 1 capsule by mouth once daily. - Wpbkbsdh-Achzrhw-Pawk-L utein tab Take 1 tablet by mouth once daily. Problem List As Of Date 03/10/2024 Noted Resolved Breast cancer of upper-outer quadrant of left f*01/12/2016 Lymphedema of left upper extremity [I89.0] 05/14/2016 Malignant neoplasm of upper-outer quadrant of l*11/06/2016 Medicare annual wellness visit, subsequent [Z00*02/10/2019 Osteopenia, senile [M85.80] 02/10/2019 Venous insufficiency (chronic) (peripheral) [I8*03/09/2019 Elevated blood sugar [R73.9] 09/02/2020 Medication management [Z79.899] 09/02/2020 Cystocele, midline [N81.11] 09/02/2020 History of colonic polyps [Z86.0100] 10/28/2020 12/19/2020 Partial rectal prolapse [K62.3] 03/14/2021 Hemorrhoids [K64.9] 03/14/2021 Obesity, Class I, BMI 30-34.9 [E66.811] 04/03/2021 Rectocele [N81.6] 04/06/2021 Incomplete uterovaginal prolapse [N81.2] 04/06/2021 Mixed incontinence [N39.46] 05/12/2021 Advance directive discussed with patient [Z71.8*12/26/2021 Age-related osteoporosis without current pathol*05/20/2023 Primary malignant neoplasm of upper outer quadr*03/09/2024 Estrogen receptor positive status (ER+) [Z17.0] 03/09/2024 Personal history of malignant neoplasm of breas*03/09/2024 Encounter Status:Closed by LOLY MCKEON on 03/10/24 [facility] 03-09-2024 CNOV Office Visit (BRSM ) LOVE PINO ([id number]) 1950 F TXT Date Time Provider Department 03/09/24 1:00 PM REMINGTON SUNG [facility] During your visit today, we recorded the following information about you: Pulse Respiration Blood pressure Weight 89/minute 14/minute 124/80 86.6 kg Remington Sung MD 03/09/2024 2:57 PM Signed March 09, 2024 Love Pino 1950 [id number] NOOKSACK: This is a 73-year-old female that I first met way back in November 2015 when she was diagnosed with an invasive duct cancer in the upper outer left breast. She underwent needle localized partial mastectomy with sentinel node biopsy and completion axillary node dissection. One lymph node was involved. She did not require chemotherapy but she did take anastrozole for 5 years. She also completed radiation therapy. She has been doing well with no symptoms in either breast. She had a mammogram done on 01/03/2024 which showed a new mass density in the upper outer right breast which on ultrasound measured 8 mm. It was felt to be suspicious and biopsy was recommended. Unfortunately, they did not look at her lymph nodes in the right axilla. She underwent this biopsy recently and it showed a grade 2 infiltrating lobular carcinoma. Estrogen receptors were strongly positive at +3/90%. Progesterone receptors were also strongly positive at +3/95%. HER2 receptor was negative. She does have, in addition to her history of breast cancer on the opposite side, a family history of breast cancer in her mother. The patient came in today with her wzahdbke-ir-rmy to discuss her treatment options for this new cancer. I did review her recent mammogram images with the patient and her udbjolwf-cm-pac. I also made them a copy of her pathology report and reviewed that with them as well. PAST MEDICAL HISTORY PAST MEDICAL HISTORY Diagnosis Date Arthritis Breast [...] insufficiency (chronic) (peripheral) 03/09/2019 PAST SURGICAL HISTORY PAST SURGICAL HISTORY Procedure Laterality Date BREAST SURGERY HX Left lumpectomy, followed by radiation and pills CARPAL TUNNEL 2013 Bilateral COLONOSCOPY 2016 repeat 5 yrs COLONOSCOPY FLX DX W/COLLJ SPEC WHEN PFRMD 12/19/2020 DILATION AND CURETTAGE DXAND/THER NONOBSTETRIC 1980 Dilation AND curettage KNEE SURGERY HX Right 08/01/2023 Total MASTECTOMY, PARTIAL Left 01/03/2016 lymph node bx(13) PAST SURGICAL HISTORY OF PAST SURGICAL HISTORY OF 03/2021 vaginal hysterectomy, ovaries remain TONSILLECTOMY HX denies FAMILY HISTORY FAMILY HISTORY Problem Relation Age of Onset Breast Cancer Mother 57 age 60 Diabetes Father Heart Father GI Father bleeding ulcers No Known Problems Sister Parkinson?s Disease Sister No Known Problems Sister No Known Problems Sister Cancer Brother age 59 Lymphoma/liver disease No Known Problems Brother No Known Problems Brother other (Thyroid or Thraot cancer) Maternal Grandmother No Known Problems Maternal Grandfather other (Heart Condition) Paternal Grandmother other (Heart Condition) Paternal Grandfather Colon Cancer Maternal Aunt Colon Cancer Maternal Uncle SOCIAL HISTORY Social History Tobacco Use Smoking status: Never Smokeless tobacco: Never Vaping Use Vaping status: Never Used Substance Use Topics Alcohol use: Yes Comment: wine Drug use: Never MEDICATIONS Current Outpatient Medications Medication Sig Dispense Refill guaiFENesin (MUCINEX) 600 mg 12 hr tablet Take 1,200 mg by mouth once daily. Biotin 1 mg tab Take 1 tablet by mouth every other day. naproxen sodium (ALEVE ORAL) Take 1 tablet by mouth two times a day. docusate sodium (COLACE ORAL) Take 1 tablet by mouth once daily. CALCIUM CARBONATE (TUMS ORAL) Take 1-2 tablets by mouth once daily. Cholecalciferol, Vitamin D3, 50 mcg (2,000 unit) cap Take 1 capsule by mouth once daily. Idvconot-Svdojty-Bvhd-L utein tab Take 1 tablet by mouth once daily. No current facility-administered medications for this visit. ALLERGIES Penicillin and Sulfa (Sulfonamide Antibiotics) REVIEW OF SYSTEMS: GENERAL: No fever/chills. No unusual weight change. EYES: No blurring or diplopia. No drainage. No unusual vision loss. Wears corrective lenses. E (more content not included)... [facility] HISTORY PHYSICALon HISTORY PHYSICAL HNO ID: [id number] Author: REMINGTON SUNG MD Service: ? Author Type: Physician Type: H&P Filed: 03/09/2024 14:57 Note Text: March 09, 2024 Love Gerald Odette 1950 [id number] NOOKSACK: This is a 73-year-old female that I first met way back in November 2015 when she was diagnosed with an invasive duct cancer in the upper outer left breast. She underwent needle localized partial mastectomy with sentinel node biopsy and completion axillary node dissection. One lymph node was involved. She did not require chemotherapy but she did take anastrozole for 5 years. She also completed radiation therapy. She has been doing well with no symptoms in either breast. She had a mammogram done on 01/03/2024 which showed a new mass density in the upper outer right breast which on ultrasound measured 8 mm. It was felt to be suspicious and biopsy was recommended. Unfortunately, they did not look at her lymph nodes in the right axilla. She underwent this biopsy recently and it showed a grade 2 infiltrating lobular carcinoma. Estrogen receptors were strongly positive at +3/90%. Progesterone receptors were also strongly positive at +3/95%. HER2 receptor was negative. She does have, in addition to her history of breast cancer on the opposite side, a family history of breast cancer in her mother. The patient came in today with her wiqmxhdn-jb-rue to discuss her treatment options for this new cancer. I did review her recent mammogram images with the patient and her nrdcbqoz-rp-trc. I also made them a copy of her pathology report and reviewed that with them as well. PAST MEDICAL HISTORY PAST MEDICAL HISTORY Diagnosis Date Arthritis Breast [...] insufficiency (chronic) (peripheral) 03/09/2019 PAST SURGICAL HISTORY PAST SURGICAL HISTORY Procedure Laterality Date BREAST SURGERY HX Left lumpectomy, followed by radiation and pills CARPAL TUNNEL 2013 Bilateral COLONOSCOPY 2016 repeat 5 yrs COLONOSCOPY FLX DX W/COLLJ SPEC WHEN PFRMD 12/19/2020 DILATION AND CURETTAGE DXAND/THER NONOBSTETRIC 1980 Dilation AND curettage KNEE SURGERY HX Right 08/01/2023 Total MASTECTOMY, PARTIAL Left 01/03/2016 lymph node bx(13) PAST SURGICAL HISTORY OF PAST SURGICAL HISTORY OF 03/2021 vaginal hysterectomy, ovaries remain TONSILLECTOMY HX denies FAMILY HISTORY FAMILY HISTORY Problem Relation Age of Onset Breast Cancer Mother 57 age 60 Diabetes Father Heart Father GI Father bleeding ulcers No Known Problems Sister Parkinson?s Disease Sister No Known Problems Sister No Known Problems Sister Cancer Brother age 59 Lymphoma/liver disease No Known Problems Brother No Known Problems Brother other (Thyroid or Thraot cancer) Maternal Grandmother No Known Problems Maternal Grandfather other (Heart Condition) Paternal Grandmother other (Heart Condition) Paternal Grandfather Colon Cancer Maternal Aunt Colon Cancer Maternal Uncle SOCIAL HISTORY Social History Tobacco Use Smoking status: Never Smokeless tobacco: Never Vaping Use Vaping status: Never Used Substance Use Topics Alcohol use: Yes Comment: wine Drug use: Never MEDICATIONS Current Outpatient Medications Medication Sig Dispense Refill guaiFENesin (MUCINEX) 600 mg 12 hr tablet Take 1,200 mg by mouth once daily. Biotin 1 mg tab Take 1 tablet by mouth every other day. naproxen sodium (ALEVE ORAL) Take 1 tablet by mouth two times a day. docusate sodium (COLACE ORAL) Take 1 tablet by mouth once daily. CALCIUM CARBONATE (TUMS ORAL) Take 1-2 tablets by mouth once daily. Cholecalciferol, Vitamin D3, 50 mcg (2,000 unit) cap Take 1 capsule by mouth once daily. Wheurngh-Xjjtxgc-Lvwo-L utein tab Take 1 tablet by mouth once daily. No current facility-administered medications for this visit. ALLERGIES Penicillin and Sulfa (Sulfonamide Antibiotics) REVIEW OF SYSTEMS: GENERAL: No fever/chills. No unusual weight change. EYES: No blurring or diplopia. No drainage. No unusual vision loss. Wears corrective lenses. EARS: No earache. No drainage. No hearing loss. NOSE: No acute congestion or drainage. THROAT: No sore throat. No difficulty swallowing. CARDIAC: No chest pains or palpitations. She did develop some postoperative mild lymphedema in her left upper extremity for which she wore a garment in the p (more content not included)... [facility] 02-26-2024 HANHN Telephone ([employer]) LOVE PINO ([id number]) 1950 F TXT Date Time Provider Department 02/26/24 AZRA MEEKS During your visit today, we recorded the following information about you: Azra Meeks MD 02/26/2024 4:20 PM Signed Told patient that pathology reveals Invasive lobular carcinoma, provisional grade 2 She wishes to be referred to Dr. Remington Sung at [facility] for surgical treatment. I will place a phone call for the above. Loly Dubois LPN 02/26/2024 4:43 PM Signed Patient called. Verified name and date of . Dr. Parker office is currently closed- patient will call tomorrow. Patient is asking how emergent this is if he is scheduled out farther and if so who should she see? I did suggest to patient to find out availability of Dr. Sung and go from there on plan of care. Verbalizes understanding and will call tomorrow morning. Loly Dubois LPN Allergies As of Date: 02/26/2024 Noted Allergy Reaction PENICILLIN 01/12/2016 10 - Anaphylaxis SULFA (SULFONAMIDE ANTIBIOTICS) 01/12/2016 9 - Itching Date Reviewed: 02/24/2024 Reviewed by: Estella Guardado RT(R) - Fully Assessed Reason for Visit: Results [95] Prescriptions as of 02/26/2024 - guaiFENesin (MUCINEX) 600 mg 12 hr tablet Take 1,200 mg by mouth once daily. - Biotin 1 mg tab Take 1 tablet by mouth every other day. - naproxen sodium (ALEVE ORAL) Take 1 tablet by mouth two times a day. - docusate sodium (COLACE ORAL) Take 1 tablet by mouth once daily. - CALCIUM CARBONATE (TUMS ORAL) Take 1-2 tablets by mouth once daily. - Cholecalciferol, Vitamin D3, 50 mcg (2,000 unit) cap Take 1 capsule by mouth once daily. - Fjjmlpat-Goyzvjd-Stpa-L utein tab Take 1 tablet by mouth once daily. Problem List As Of Date 02/26/2024 Noted Resolved Breast cancer of upper-outer quadrant of left f*01/12/2016 Lymphedema of left upper extremity [I89.0] 05/14/2016 Malignant neoplasm of upper-outer quadrant of l*11/06/2016 Medicare annual wellness visit, subsequent [Z00*02/10/2019 Osteopenia, senile [M85.80] 02/10/2019 Venous insufficiency (chronic) (peripheral) [I8*03/09/2019 Elevated blood sugar [R73.9] 09/02/2020 Medication management [Z79.899] 09/02/2020 Cystocele, midline [N81.11] 09/02/2020 History of colonic polyps [Z86.0100] 10/28/2020 12/19/2020 Partial rectal prolapse [K62.3] 03/14/2021 Hemorrhoids [K64.9] 03/14/2021 Obesity, Class I, BMI 30-34.9 [E66.811] 04/03/2021 Rectocele [N81.6] 04/06/2021 Incomplete uterovaginal prolapse [N81.2] 04/06/2021 Mixed incontinence [N39.46] 05/12/2021 Advance directive discussed with patient [Z71.8*12/26/2021 Age-related osteoporosis without current pathol*05/20/2023 Encounter Status:Closed by AZRA MEEKS on 02/26/24 Normal [facility] BREAST MARKERSon 02-24-2024 BREAST TUMOR GRADE Grade 2 [facility] Comment on above: Order Comment: Speci men Type: TISSUE SPECIMEN Ordering Facility: [facility] Address: [address] [place] [address] Performed By: #### L [id number] #### [facility] CLIA [id number] [address] OF [place] [facility] CASE NUMBER INVASIVE [id number] [facility] Comment on above: Order Comment: Speci men Type: TISSUE SPECIMEN Ordering Facility: [facility] Address: [address] [place] [address] Performed By: #### L [id number] #### [facility] CLIA [id number] [address] ESTROGEN RECEPTOR (% TUMOR STAINING) 90 Normal [facility] Comment on above: Order Comment: Speci men Type: TISSUE SPECIMEN Ordering Facility: [facility] Address: [address] [place] [address] Performed By: #### L [id number] #### [facility] CLIA [id number] [address] ESTROGEN RECEPTOR (STAINING INTENSITY) Strong Normal [facility] Comment on above: Order Comment: Speci men Type: TISSUE SPECIMEN Ordering Facility: [facility] Address: [address] [place] [address] Performed By: #### L [id number] #### [facility] CLIA [id number] [address] ESTROGEN RECEPTOR EXTERNAL CONTROL Present and Stained as Expected [facility] Comment on above: Order Comment: Speci men Type: TISSUE SPECIMEN Ordering Facility: [facility] Address: [address] [place] [address] Performed By: #### L [id number] #### [facility] CLIA [id number] [address] ESTROGEN RECEPTOR INTERNAL CONTROL Present and Stained as Expected Normal [facility] Comment on above: Order Comment: Speci men Type: TISSUE SPECIMEN Ordering Facility: [facility] Address: [address] [place] [address] Performed By: #### L [id number] #### [facility] CLIA [id number] [address] [place] ESTROGEN RECEPTOR STATUS (INVASIVE) Positive Normal [facility] Comment on above: Order Comment: Speci men Type: TISSUE SPECIMEN Ordering Facility: [facility] Address: [address] [place] [address] Performed By: #### L [id number] #### [facility] CLIA [id number] [address] HER2 SCORE See Separate Report [facility] Comment on above: Order Comment: Speci men Type: TISSUE SPECIMEN Ordering Facility: [facility] Address: [address] [place] [address] Performed By: #### L [id number] #### [facility] CLIA [id number] [address] HER2 STATUS (INVASIVE) See Separate Report [facility] Comment on above: Order Comment: Speci men Type: TISSUE SPECIMEN Ordering Facility: [facility] Address: [address] [place] [address] Performed By: #### L [id number] #### [facility] CLIA [id number] [address] [place] PROGESTERONE RECEPTOR (% TUMOR STAINING) 95 Normal [facility] Comment on above: Order Comment: Speci men Type: TISSUE SPECIMEN Ordering Facility: [facility] Address: [address] [place] [address] Performed By: #### L [id number] #### [facility] CLIA [id number] [address] OF [place] PROGESTERONE RECEPTOR (STAINING INTENSITY) Strong Normal [facility] Comment on above: Order Comment: Speci men Type: TISSUE SPECIMEN Ordering Facility: [facility] Address: [address] [place] [address] Performed By: #### L [id number] #### [facility] CLIA [id number] [address] PROGESTERONE RECEPTOR EXTERNAL CONTROL Present and Stained as Expected Normal [facility] Comment on above: Order Comment: Speci men Type: TISSUE SPECIMEN Ordering Facility: [facility] Address: [address] [place] [address] Performed By: #### L [id number] #### [facility] CLIA [id number] [address] PROGESTERONE RECEPTOR INTERNAL CONTROL Present and Stained as Expected Normal [facility] Comment on above: Order Comment: Speci men Type: TISSUE SPECIMEN Ordering Facility: [facility] Address: [address] [place] [address] Performed By: #### L [id number] #### [facility] CLIA [id number] [address] PROGESTERONE RECEPTOR STATUS (INVASIVE) Positive Normal [facility] Comment on above: Order Comment: Speci men Type: TISSUE SPECIMEN Ordering Facility: [facility] Address: [address] [place] [address] Performed By: #### L [id number] #### [facility] CLIA [id number] [address] TUMOR TYPE (INVASIVE) Primary Invasive B reast Carcinoma Normal [facility] Comment on above: Order Comment: Speci men Type: TISSUE SPECIMEN Ordering Facility: [facility] Address: [address] [place] [address] Performed By: #### L [id number] #### [facility] CLIA [id number] [address] [place] DBT Breast - right diagnosti c for implanton 02-24-2024 IMPRESSION: ULTRASOU ND GUIDED BIOPSY Site 1: Successful ultrasound guided biopsy of the mass at 11 o'clock, 3 cm from the nipple in the right breast with placement of a Q shaped clip was successful. Waiting for pathology results. A final report will be issued when these become available. Tube Closing Machine Operator: DARIAN Transcribe Date/Time: Feb 24 2024 2:28P Dictated by : AN KIM MD This examination was interpreted and the report reviewed and electronically signed by: AN KIM MD on Feb 24 2024 3:08PM EST [facility] * * *Final Report* * * DATE OF EXAM: Feb 24 2024 2:32PM AAW 0629 - MAVERICK DIAG W LOIDA RT / PROCEDURE REASON: multiple diagnoses * * * * Physician Interpretation * * * * [facility] [address] [place] [address] HISTORY: 73 year old patient presents for ultrasound guided core biopsy of mass at 11 o'clock, 3 cm from the nipple in the right breast. PATIENT CONSENT: A time out was performed immediately prior to procedure start with the radiology team, correctly identifying the patient name, date of , procedure, anatomy (including marking of site and side), patient position, relevant diagnostic and radiology test results, safety precautions, and procedure-specific equipment needs. The procedure was explained to the patient including the risks, benefits and alternatives. Medications and allergies were also reviewed. The risks, including but not limited to infection and bleeding, were reviewed by the performing physician and the patient agreed to undergo the procedure. The radiologist and technologist were present throughout the entire procedure. Correlation is made to exams dated: 12/11/2021 (mammogram), 01/01/2023 (mammogram) and 01/03/2024 (mammogram). Site 1: Audible Time Out Time: 1351 Procedure Start Time: 1352 Procedure Stop Time: 1414 An ultrasound guided biopsy using real-time ultrasound was performed for the concerning mass located in the right breast at 11 o'clock 3 cm from the nipple. This was described on the previous ultrasound report. The skin was prepped in the usual manner. Local anesthetic was administered to the access site. A skin corrine was made in the breast. The abnormality was approached from the lateral aspect. A 14 gauge biopsy needle was placed adjacent to the abnormality under ultrasound guidance. Once the needle was documented to be in the correct location, 5 passes were made using a spring-loaded biopsy device. A coil biopsy marker was then placed under sonographic guidance. A skin closure strip and a sterile dressing were applied to the access site. The specimens were sent to the laboratory for pathological analysis. The breasts are heterogeneously dense, which may obscure small masses. The coil-shaped biopsy clip is noted superior to the mammographic finding. A second Q shaped clip was placed under ultrasound guidance which demonstrates appropriate positioning on post biopsy mammogram. [facility] Provider, Vishal Khoury [facility] - 02/24/2024 * * *Final Report* * * DATE OF EXAM: Feb 24 2024 2:32PM AAW 0629 - MAVERICK DIAG W LOIDA RT / PROCEDURE REASON: multiple diagnoses * * * * Physician Interpretation * * * * [facility] [address] [place] [address] HISTORY: 73 year old patient presents for ultrasound guided core biopsy of mass at 11 o'clock, 3 cm from the nipple in the right breast. PATIENT CONSENT: A time out was performed immediately prior to procedure start with the radiology team, correctly identifying the patient name, date of , procedure, anatomy (including marking of site and side), patient position, relevant diagnostic and radiology test results, safety precautions, and procedure-specific equipment needs. The procedure was explained to the patient including the risks, benefits and alternatives. Medications and allergies were also reviewed. The risks, including but not limited to infection and bleeding, were reviewed by the performing physician and the patient agreed to undergo the procedure. The radiologist and technologist were present throughout the entire procedure. Correlation is made to exams dated: 12/11/2021 (mammogram), 01/01/2023 (mammogram) and 01/03/2024 (mammogram). Site 1: Audible Time Out Time: 1351 Procedure Start Time: 1352 Procedure Stop Time: 1414 An ultrasound guided biopsy using real-time ultrasound was performed for the concerning mass located in the right breast at 11 o'clock 3 cm from the nipple. This was described on the previous ultrasound report. The skin was prepped in the usual manner. Local anesthetic was administered to the access site. A skin corrine was made in the breast. The abnormality was approached from the lateral aspect. A 14 gauge biopsy needle was placed adjacent to the abnormality under ultrasound guidance. Once the needle was documented to be in the correct location, 5 passes were made using a spring-loaded biopsy device. A coil biopsy marker was then placed under sonographic guidance. A skin closure strip and a sterile dressing were applied to the access site. The specimens were sent to the laboratory for pathological analysis. The breasts are heterogeneously dense, which may obscure small masses. The coil-shaped biopsy clip is noted superior to the mammographic finding. A second Q shaped clip was placed under ultrasound guidance which demonstrates appropriate positioning on post biopsy mammogram. IMPRESSION IMPRESSION: ULTRASOUND GUIDED BIOPSY Site 1: Successful ultrasound guided biopsy of the mass at 11 o'clock, 3 cm from the nipple in the right breast with placement of a Q shaped clip was successful. Waiting for pathology results. A final report will be issued when these become available. Tube Closing Machine Operator: DARIAN Transcribe Date/Time: Feb 24 2024 2:28P Dictated by : AN KIM MD This examination was interpreted and the report reviewed and electronically signed by: AN KIM MD on Feb 24 2024 3:08PM EST [facility] Radiology Study observation (narrative) [facility] HER2 (4B5) BY IHCon 10-28-20 24 AP BIOMARKER DISCLAIMER Normal [facility] Comment on above: Order Comment: Speci men Type: TISSUE SPECIMEN Ordering Facility: [facility] Address: [address] [place] [address] Result Comment: Lori carrasco Developed Test (LDT) Disclaimer: Performance characteristics of immunohistochemical, immunofluorescent and chromogenic in-situ hybridization tests have been determined by the performing laboratory within [facility]???s Onelia Fitzgerald Pathology and Laboratory Medicine Department ([facility], [facility], [facility], [facility], [facility], [facility], or [facility]) in a manner consistent with CLIA requirements. One or more of these tests have not been cleared or approved by the FDA. [facility] is regulated under CLIA as qualified to perform high-complexity testing. These tests are used for clinical purposes. They should not be regarded as investigational or for research. Positive and negative controls stain appropriately. Performed By: #### L [id number] #### [facility] CLIA [id number] [address] [place] [address] [place] #### S #### [facility] CLIA [id number] [address] Performed By: #### L [id number] #### [facility] CLIA [id number] [address] AP BLOCK ID [id number] Normal [facility] Comment on above: Order Comment: Speci men Type: TISSUE SPECIMEN Ordering Facility: [facility] Address: [address] [place] [address] Performed By: #### L [id number] #### [facility] CLIA [id number] [address] [place] [address] [place] #### S #### [facility] CLIA [id number] [address] [place] Performed By: #### L [id number] #### [facility] CLIA [id number] [address] [place] ASCO/CAP GUIDELINES FOR FIXATION MET Yes Normal [facility] Comment on above: Order Comment: Speci men Type: TISSUE SPECIMEN Ordering Facility: [facility] Address: [address] [place] [address] Performed By: #### L [id number] #### [facility] CLIA [id number] [address] [place] [address] [place] #### S #### [facility] CLIA [id number] [address] [place] Performed By: #### L [id number] #### [facility] CLIA [id number] [address] [place] BIOMARKER INTERPRETATION COMMENT AND REFERENCE RANGE [facility] Comment on above: Order Comment: Speci men Type: TISSUE SPECIMEN Ordering Facility: [facility] Address: [address] [place] [address] Result Comment: Refe rence Ranges for HER2 Immunohistochemistry: Positive (3+): Complete, intense circumferential membrane staining in greater than 10% of tumor cells Equivocal (2+): Weak to moderate complete membrane staining observed in greater than 10% of tumor cells Negative (1+): Incomplete, faint membrane staining in greater than 10% of tumor cells Negative (0): No staining or incomplete faint membrane staining in less than or equal to 10% of tumor cells Interpretation comments: The HER2 immunohistochemistry assay was developed, validated, scored, and reported in accordance with the guidelines approved by the [place] Society of Clinical Oncologists and the College of [place] Pathologists. Soraida PEREZ et al. Arch Pathol Lab Med. 2018;1379(9) The HER2 assay has not been validated on decalcified tissues. Given the possibility of false negative results on decalcified specimens, results should be interpreted with caution. Consideration of follow-up testing for HER2 (ERBB2) status by fluorescence in situ hybridization (FISH) for all equivocal (2+) results is recommended and will be ordered as a reflex test if FISH was not a testing methodology already employed. Performed By: #### L [id number] #### [facility] CLIA [id number] [address] [place] [address] #### S #### [facility] CLIA [id number] [address] [place] [address] [place] Result Comment: Refe rence Range for Hormone Receptors: Staining for OR of greater than or equal to 1% of the tumor cells is considered positive. Staining for ER of 1-10% of the tumor cells is considered low positive. Staining for ER of greater than 10% of the tumor cells is considered positive. Staining for ER or OR of less than 1% is considered negative. Note for ER low results. For malignancy with a low level (1%-10%) of ER expression by immunohistochemistry, there are limited data on the overall benefit of endocrine therapies for a patient with low level (1%-10%) ER expression, but they currently suggest possible benefits, so patients are considered eligible for endocrine treatment. Some data indicate invasive cancers with these results are heterogeneous in both behavior and biology and often have gene expression profiles more similar to ER-negative cancers. Performed By: #### L [id number] #### [facility] CLIA [id number] [address] [place] [address] BIOMARKER METHOD [facility] Comment on above: Order Comment: Speci men Type: TISSUE SPECIMEN Ordering Facility: [facility] Address: [address] [place] [address] Result Comment: HER2 (ERBB2) by IHC: FDA cleared: [employer], [place], [place] Primary Antibody:4B5 Antibody and Detection System: [employer] anti-HER2 rabbit monoclonal antibody (clone 4B5), were detected with the [employer] iView Detection System (indirect biotin streptavidin detection); [place], [place]. Performed By: #### L [id number] #### [facility] CLIA [id number] [address] [place] [address] [place] #### S #### [facility] CLIA [id number] [address] [place] [address] Result Comment: Estr ogen Receptor: Food and Drug Administration (FDA) cleared: [employer], [place], [place] Primary Antibody: 6F11 Progesterone Receptor: Food and Drug Administration (FDA) cleared: [employer], [place], [place] Primary Antibody: 16 The hormone receptor tests were performed and reported in accordance with the guidelines approved by the [place] Society of Clinical Oncologists and the College of [place] Pathologists. Angella YEE, et al. Estrogen and Progesterone Receptor Testing in Breast Cancer: [place] Society of Clinical Oncologists and the College of [place] Pathologists Guideline Update. Arch Pathol Lab Med. 2019;144(5):545-563. PMID: [id number]. Estrogen and progesterone receptor results are valid if tissue was processed according to ASCO/CAP guidelines. Antibody and Detection System: [employer] anti-estrogen receptor monoclonal antibody (clone 6F11) and [employer] anti-progesterone receptor monoclonal antibody (clone 16) detected with the [employer] Refine (polymer biotin-free detection); [place], [place]. Performed By: #### L [id number] #### [facility] CLIA [id number] [address] [place] [address] OF [place] [facility] CASE NUMBER HER2 [id number] [facility] Comment on above: Order Comment: Speci men Type: TISSUE SPECIMEN Ordering Facility: [facility] Address: [address] [place] [address] Performed By: #### L [id number] #### [facility] CLIA [id number] [address] [place] [address] [place] #### S #### [facility] CLIA [id number] [address] COLD ISCHEMIA TIME <1 Hour [facility] Comment on above: Order Comment: Speci men Type: TISSUE SPECIMEN Ordering Facility: [facility] Address: [address] [place] [address] Performed By: #### L [id number] #### [facility] CLIA [id number] [address] [place] [address] [place] #### S #### [facility] CLIA [id number] [address] [place] Performed By: #### L [id number] #### [facility] CLIA [id number] [address] [place] FIXATIVE Formalin, 10% Neutra l Buffered [facility] Comment on above: Order Comment: Speci men Type: TISSUE SPECIMEN Ordering Facility: [facility] Address: [address] [place] [address] Performed By: #### L [id number] #### [facility] CLIA [id number] [address] [place] [address] [place] #### S #### [facility] CLIA [id number] [address] Performed By: #### L [id number] #### [facility] CLIA [id number] [address] [place] HER2 SCORE (OTHER THAN COLON) 0 [facility] Comment on above: Order Comment: Speci men Type: TISSUE SPECIMEN Ordering Facility: [facility] Address: [address] [place] [id number] Performed By: #### L [id number] #### [facility] CLIA [id number] [address] [place] [address] [place] #### S #### [facility] CLIA [id number] [address] [place] HER2 STATUS OTHER THAN UNRESECTABLE Negative Normal [facility] Comment on above: Order Comment: Speci men Type: TISSUE SPECIMEN Ordering Facility: [facility] Address: [address] [place] [address] Performed By: #### L [id number] #### [facility] CLIA [id number] [address] [place] [address] [place] #### S #### [facility] CLIA [id number] [address] [place] [address] [place] TOTAL FIXATION TIME >6 and <72 Hours Normal [facility] Comment on above: Order Comment: Speci men Type: TISSUE SPECIMEN Ordering Facility: [facility] Address: [address] [place] [address] Performed By: #### L [id number] #### [facility] CLIA [id number] [address] [place] [address] [place] #### S #### [facility] CLIA [id number] [address] [place] Performed By: #### L [id number] #### [facility] CLIA [id number] [address] [place] TUMOR TYPE HER2 Primary Invasive Myah ast Carcinoma Normal [facility] Comment on above: Order Comment: Speci men Type: TISSUE SPECIMEN Ordering Facility: [facility] Address: [address] [place] [id number] Performed By: #### L [id number] #### [facility] CLIA [id number] [address] #### S #### [facility] CLIA [id number] [address] [place] WAS SPECIMEN DECALCIFIED No Normal [facility] Comment on above: Order Comment: Speci men Type: TISSUE SPECIMEN Ordering Facility: [facility] Address: [address] [place] [address] Performed By: #### L [id number] #### [facility] CLIA [id number] [facility] [address] #### S #### [facility] CLIA [id number] [address] Performed By: #### L [id number] #### [facility] CLIA [id number] [address] MAVERICK DIAG W LOIDA RTon 024 MAVERICK DIAG W LOIDA RT * * *Final Report* * * * * * SEE BOTTOM OF REPORT FOR ADDENDED TEXT * * * DATE OF EXAM: Feb 24 2024 2:32PM AAW 0629 - MAVERICK DIAG W LOIDA RT / PROCEDURE REASON: multiple diagnoses * * * * Physician Interpretation * * * * [facility] [address] [place] [address] - - - - - - - - - - ADDENDED REPORT - - - - - - - - - - 03/09/2024 at 18:08:06 Addendum: Pathology demonstrates Invasive lobular carcinoma, provisional grade 2. This is malignant and concordant. The patient will follow up with Dr. Sung for surgical management. Interpreting Radiologist: An Kim M.D. Electronically signed on: 03/09/2024 - - - - - - - - - - ORIGINAL REPORT - - - - - - - - - - HISTORY: 73 year old patient presents for ultrasound guided core biopsy of mass at 11 o'clock, 3 cm from the nipple in the right breast. PATIENT CONSENT: A time out was performed immediately prior to procedure start with the radiology team, correctly identifying the patient name, date of , procedure, anatomy (including marking of site and side), patient position, relevant diagnostic and radiology test results, safety precautions, and procedure-specific equipment needs. The procedure was explained to the patient including the risks, benefits and alternatives. Medications and allergies were also reviewed. The risks, including but not limited to infection and bleeding, were reviewed by the performing physician and the patient agreed to undergo the procedure. The radiologist and technologist were present throughout the entire procedure. Correlation is made to exams dated: 12/11/2021 (mammogram), 01/01/2023 (mammogram) and 01/03/2024 (mammogram). Site 1: Audible Time Out Time: 1351 Procedure Start Time: 1352 Procedure Stop Time: 1414 An ultrasound guided biopsy using real-time ultrasound was performed for the concerning mass located in the right breast at 11 o'clock 3 cm from the nipple. This was described on the previous ultrasound report. The skin was prepped in the usual manner. Local anesthetic was administered to the access site. A skin corrine was made in the breast. The abnormality was approached from the lateral aspect. A 14 gauge biopsy needle was placed adjacent to the abnormality under ultrasound guidance. Once the needle was documented to be in the correct location, 5 passes were made using a spring-loaded biopsy device. A coil biopsy marker was then placed under sonographic guidance. A skin closure strip and a sterile dressing were applied to the access site. The specimens were sent to the laboratory for pathological analysis. The breasts are heterogeneously dense, which may obscure small masses. The coil-shaped biopsy clip is noted superior to the mammographic finding. A second Q shaped clip was placed under ultrasound guidance which demonstrates appropriate positioning on post biopsy mammogram. IMPRESSION: ULTRASOUND GUIDED BIOPSY Site 1: Successful ultrasound guided biopsy of the mass at 11 o'clock, 3 cm from the nipple in the right breast with placement of a Q shaped clip was successful. Waiting for pathology results. A final report will be issued when these become available. Tube Closing Machine Operator: DARIAN Transcribe Date/Time: Feb 24 2024 2:28P Dictated by : AN KIM MD This examination was interpreted and the report reviewed and electronically signed by: AN KIM MD on Feb 24 2024 3:08PM EST This document has been addended by: AN KIM MD on Mar 09 2024 6:08PM EST [id number] Normal [facility] US BIOPSY BREAST RTon [facility] US BIOPSY BREAST RT * * *Final Report* * * * * * SEE BOTTOM OF REPORT FOR ADDENDED TEXT * * * DATE OF EXAM: Feb 24 2024 2:24PM AAW [id number] - [facility] US BIOPSY BREAST RT / PROCEDURE REASON: multiple diagnoses * * * * Physician Interpretation * * * * [facility] [address] [place] [address] - - - - - - - - - - ADDENDED REPORT - - - - - - - - - - 03/09/2024 at 18:08:06 Addendum: Pathology demonstrates Invasive lobular carcinoma, provisional grade 2. This is malignant and concordant. The patient will follow up with Dr. Sung for surgical management. Interpreting Radiologist: An Kim M.D. Electronically signed on: 03/09/2024 - - - - - - - - - - ORIGINAL REPORT - - - - - - - - - - HISTORY: 73 year old patient presents for ultrasound guided core biopsy of mass at 11 o'clock, 3 cm from the nipple in the right breast. PATIENT CONSENT: A time out was performed immediately prior to procedure start with the radiology team, correctly identifying the patient name, date of , procedure, anatomy (including marking of site and side), patient position, relevant diagnostic and radiology test results, safety precautions, and procedure-specific equipment needs. The procedure was explained to the patient including the risks, benefits and alternatives. Medications and allergies were also reviewed. The risks, including but not limited to infection and bleeding, were reviewed by the performing physician and the patient agreed to undergo the procedure. The radiologist and technologist were present throughout the entire procedure. Correlation is made to exams dated: 12/11/2021 (mammogram), 01/01/2023 (mammogram) and 01/03/2024 (mammogram). Site 1: Audible Time Out Time: 1351 Procedure Start Time: 1352 Procedure Stop Time: 1414 An ultrasound guided biopsy using real-time ultrasound was performed for the concerning mass located in the right breast at 11 o'clock 3 cm from the nipple. This was described on the previous ultrasound report. The skin was prepped in the usual manner. Local anesthetic was administered to the access site. A skin corrine was made in the breast. The abnormality was approached from the lateral aspect. A 14 gauge biopsy needle was placed adjacent to the abnormality under ultrasound guidance. Once the needle was documented to be in the correct location, 5 passes were made using a spring-loaded biopsy device. A coil biopsy marker was then placed under sonographic guidance. A skin closure strip and a sterile dressing were applied to the access site. The specimens were sent to the laboratory for pathological analysis. The breasts are heterogeneously dense, which may obscure small masses. The coil-shaped biopsy clip is noted superior to the mammographic finding. A second Q shaped clip was placed under ultrasound guidance which demonstrates appropriate positioning on post biopsy mammogram. IMPRESSION: ULTRASOUND GUIDED BIOPSY Site 1: Successful ultrasound guided biopsy of the mass at 11 o'clock, 3 cm from the nipple in the right breast with placement of a Q shaped clip was successful. Waiting for pathology results. A final report will be issued when these become available. Tube Closing Machine Operator: KabeExplorationSILKE Transcribe Date/Time: Feb 24 2024 1:18P Dictated by : AN KIM MD This examination was interpreted and the report reviewed and electronically signed by: AN KIM MD on Feb 24 2024 3:08PM EST This document has been addended by: AN KIM MD on Mar 09 2024 6:08PM EST [id number] Normal [facility] No Panel InformationOrdered By: Ccf Provider on 02-24-2024 [facility] SURGICAL PATHOLOGYon 024 CASE REPORT Normal [facility] Comment on above: Order Comment: Speci men Type: TISSUE SPECIMEN Ordering Facility: [facility] Address: [address] [place] [address] Result Comment: Surg [facility] Pathology Report Case: [id number] Authorizing Provider: An Kim MD Collected: 02/24/2024 01:54 PM Ordering Location: [facility] Received: 02/25/2024 12:45 PM [facility] Pathologist: Shannan Reardon MD Specimen: Breast, Right, Core Biopsy, Right breast 11:00 3cmfn, 5 x 14g marfannye, Q clip, obtained 1:54pm, formalin 1:54pm Performed By: #### L [id number] #### [facility] CLIA [id number] [address] [place] [address] [place] #### S #### [facility] CLIA [id number] [address] CLINICAL HISTORY Birads 5 Normal [facility] Comment on above: Order Comment: Speci men Type: TISSUE SPECIMEN Ordering Facility: [facility] Address: [address] [place] [address] Performed By: #### L [id number] #### [facility] CLIA [id number] [address] [place] [address] [place] #### S #### [facility] CLIA [id number] [address] [place] [address] STATES [facility] DIAGNOSIS COMMENT Normal [facility] Comment on above: Order Comment: Speci men Type: TISSUE SPECIMEN Ordering Facility: [facility] Address: [address] [place] [address] Result Comment: The largest focus of invasive carcinoma measures 8 mm in this limited sample. The invasive carcinoma shows poor glandular differentiation (score 3), moderate nuclear pleomorphism (score 2), and mitotic rate (score 1) for provisional histologic grade 2. Immunohistochemical stain for E-cadherin shows aberrant negative staining, supportive lobular carcinoma phenotype. Immunohistochemical stains for estrogen receptor and progesterone receptor were performed (please see results report). Immunohistochemical stain for HER2/garry reflex to FISH will be sent to [facility] with results reported separately. This case has been reviewed by Dr. Ted Mccann, who concurs with the above findings. Laboratory Developed Test (LDT) Disclaimer: Performance characteristics of immunohistochemical, immunofluorescent and chromogenic in-situ hybridization tests have been determined by the performing laboratory within [facility]???s Onelia Fitzgerald Pathology and Laboratory Medicine Department ([facility], [facility], [facility], [facility], [facility], [facility], or [facility]) in a manner consistent with CLIA requirements. One or more of these tests have not been cleared or approved by the FDA. RT-PLM is regulated under CLIA as qualified to perform high-complexity testing. These tests are used for clinical purposes. They should not be regarded as investigational or for research. Positive and negative controls stain appropriately. Performed By: #### L [id number] #### [facility] CLIA [id number] [address] [place] [address] [place] #### S #### [facility] CLIA [id number] [address] [place] [address] FINAL DIAGNOSIS Normal [facility] Comment on above: Order Comment: Speci men Type: TISSUE SPECIMEN Ordering Facility: [facility] Address: [address] [place] [address] Result Comment: A. R ight breast, 11:00, 3 cm from nipple, Q clip, needle core biopsy: -- Invasive lobular carcinoma, provisional grade 2, see comment. Performed By: #### L [id number] #### [facility] CLIA [id number] [address] [place] [address] [place] #### S #### [facility] CLIA [id number] [address] [place] [address] FINAL PERFORMING LAB Normal [facility] Comment on above: Order Comment: Speci men Type: TISSUE SPECIMEN Ordering Facility: [facility] Address: [address] [place] [address] Result Comment: Diag nostic interpretation performed at [facility], [address] [place] [address] CLIA# [id number] [place] Supervisor: Ted Mccann M.D. Performed By: #### L [id number] #### [facility] CLIA [id number] [address] [place] [address] [place] #### S #### [facility] CLIA [id number] [address] [place] [address] Result Comment: Diag nostic interpretation performed at: [facility], [address] [place] [address] CLIA# [id number] [place] Supervisor: Osmany Giles MD Electronically signed out by: Jimbo Zimmer MD Result Comment: Diag nostic interpretation performed at: [facility], [address] [place] [address] CLIA# [id number] [place] Supervisor: Ted Mccann MD Electronically signed out by: Shannan Reardon MD Performed By: #### L [id number] #### [facility] CLIA [id number] [address] [place] [address] GROSS DESCRIPTION Normal [facility] Comment on above: Order Comment: Speci men Type: TISSUE SPECIMEN Ordering Facility: [facility] Address: [address] [place] [address] Result Comment: A. Dalton reast, Right, Core Biopsy Received in formalin labeled as right breast 11:00 3 cm FN Q clip are 5 fragments of segments of cylindrical tissue ranging from 0.8 to 1.8 in length with a thickness of 0.2 cm, martinez and of a soft consistency. The specimen was removed from the patient at 1:54 PM on 02/24/2024. On the same day, the specimen was placed in formalin at 1:54 PM. Totally submitted in formalin in 2 cassettes. Gross examination performed at [facility], [address] [place] [address] CLIA# [id number] RSA February 25, 2024 1:26 PM Performed By: #### L [id number] #### [facility] CLIA [id number] [address] [place] [address] OF [place] #### S #### [facility] CLIA [id number] [address] [place] [address] [place] Guidance for biopsy of Br zabrina lloyd 02-24-2024 IMPRESSION: ULTRASOU ND GUIDED BIOPSY Site 1: Successful ultrasound guided biopsy of the mass at 11 o'clock, 3 cm from the nipple in the right breast with placement of a Q shaped clip was successful. Waiting for pathology results. A final report will be issued when these become available. Tube Closing Machine Operator: DARIAN Transcribe Date/Time: Feb 24 2024 1:18P Dictated by : AN KIM MD This examination was interpreted and the report reviewed and electronically signed by: AN KIM MD on Feb 24 2024 3:08PM EST [facility] * * *Final Report* * * DATE OF EXAM: Feb 24 2024 2:24PM [facility] 0598 - [place] US BIOPSY BREAST RT / PROCEDURE REASON: multiple diagnoses * * * * Physician Interpretation * * * * [facility] [address] [place] [id number] HISTORY: 73 year old patient presents for ultrasound guided core biopsy of mass at 11 o'clock, 3 cm from the nipple in the right breast. PATIENT CONSENT: A time out was performed immediately prior to procedure start with the radiology team, correctly identifying the patient name, date of , procedure, anatomy (including marking of site and side), patient position, relevant diagnostic and radiology test results, safety precautions, and procedure-specific equipment needs. The procedure was explained to the patient including the risks, benefits and alternatives. Medications and allergies were also reviewed. The risks, including but not limited to infection and bleeding, were reviewed by the performing physician and the patient agreed to undergo the procedure. The radiologist and technologist were present throughout the entire procedure. Correlation is made to exams dated: 12/11/2021 (mammogram), 01/01/2023 (mammogram) and 01/03/2024 (mammogram). Site 1: Audible Time Out Time: 1351 Procedure Start Time: 1352 Procedure Stop Time: 1414 An ultrasound guided biopsy using real-time ultrasound was performed for the concerning mass located in the right breast at 11 o'clock 3 cm from the nipple. This was described on the previous ultrasound report. The skin was prepped in the usual manner. Local anesthetic was administered to the access site. A skin corrine was made in the breast. The abnormality was approached from the lateral aspect. A 14 gauge biopsy needle was placed adjacent to the abnormality under ultrasound guidance. Once the needle was documented to be in the correct location, 5 passes were made using a spring-loaded biopsy device. A coil biopsy marker was then placed under sonographic guidance. A skin closure strip and a sterile dressing were applied to the access site. The specimens were sent to the laboratory for pathological analysis. The breasts are heterogeneously dense, which may obscure small masses. The coil-shaped biopsy clip is noted superior to the mammographic finding. A second Q shaped clip was placed under ultrasound guidance which demonstrates appropriate positioning on post biopsy mammogram. [facility] * * *Final Report* * * DATE OF EXAM: Feb 24 2024 2:24PM [facility] - [place] US BIOPSY BREAST RT / PROCEDURE REASON: multiple diagnoses * * * * Physician Interpretation * * * * [facility] [address] [place] [address] HISTORY: 73 year old patient presents for ultrasound guided core biopsy of mass at 11 o'clock, 3 cm from the nipple in the right breast. PATIENT CONSENT: A time out was performed immediately prior to procedure start with the radiology team, correctly identifying the patient name, date of , procedure, anatomy (including marking of site and side), patient position, relevant diagnostic and radiology test results, safety precautions, and procedure-specific equipment needs. The procedure was explained to the patient including the risks, benefits and alternatives. Medications and allergies were also reviewed. The risks, including but not limited to infection and bleeding, were reviewed by the performing physician and the patient agreed to undergo the procedure. The radiologist and technologist were present throughout the entire procedure. Correlation is made to exams dated: 12/11/2021 (mammogram), 01/01/2023 (mammogram) and 01/03/2024 (mammogram). Site 1: Audible Time Out Time: 1351 Procedure Start Time: 1352 Procedure Stop Time: 1414 An ultrasound guided biopsy using real-time ultrasound was performed for the concerning mass located in the right breast at 11 o'clock 3 cm from the nipple. This was described on the previous ultrasound report. The skin was prepped in the usual manner. Local anesthetic was administered to the access site. A skin corrine was made in the breast. The abnormality was approached from the lateral aspect. A 14 gauge biopsy needle was placed adjacent to the abnormality under ultrasound guidance. Once the needle was documented to be in the correct location, 5 passes were made using a spring-loaded biopsy device. A coil biopsy marker was then placed under sonographic guidance. A skin closure strip and a sterile dressing were applied to the access site. The specimens were sent to the laboratory for pathological analysis. The breasts are heterogeneously dense, which may obscure small masses. The coil-shaped biopsy clip is noted superior to the mammographic finding. A second Q shaped clip was placed under ultrasound guidance which demonstrates appropriate positioning on post biopsy mammogram. IMPRESSION IMPRESSION: ULTRASOUND GUIDED BIOPSY Site 1: Successful ultrasound guided biopsy of the mass at 11 o'clock, 3 cm from the nipple in the right breast with placement of a Q shaped clip was successful. Waiting for pathology results. A final report will be issued when these become available. Tube Closing Machine Operator: DARIAN Transcribe Date/Time: Feb 24 2024 1:18P Dictated by : AN KIM MD This examination was interpreted and the report reviewed and electronically signed by: AN KIM MD on Feb 24 2024 3:08PM [facility] Radiology Study observation (narrative) [facility] CNOVon 02-03-2024 CNOV Office Visit (SWS ) LOVE PINO ([id number]) 1950 F TXT Date Time Provider Department 02/03/24 1:45 PM AZRA MEEKS During your visit today, we recorded the following information about you: Temperature Pulse Respiration Blood pressure 97.7 degrees 96/minute 14/minute 122/84 Weight Height 87.1 kg 1.58 m Loly Dubois LPN 02/03/2024 1:42 PM Signed REVIEW OF SYSTEMS: General: The patient [...] blood. Gastrointestinal: The patient denies difficulty swallowing, denies acid reflux, denies ulcers, denies vomiting, denies jaundice/hepatitis, denies gallbladder problems, denies black or tarry stools, notes hemorrhoids, denies bleeding from rectum, denies diverticulitis, denies constipation, denies diarrhea, denies loss of stool control, and denies hernias. Kidney/Bladder: The patient denies kidney stones, notes urine infections, and denies bloody urine. Skin: [...] anemia, denies blood clots. Infections: The patient notes a history of measles and mumps, denies rheumatic fever, and denies sexually transmitted diseases. Musculoskeletal: The patient denies back pain/injury, denies back problems, denies sciatica, notes /foot trouble, denies arthritis, or denies gout. When was patient's last Mammogram screening? 01/03/2024 and 01/29/2024 Last Colonoscopy: 12/19/2020 MALIKA Chavez Linda Marie, MD 02/06/2024 3:01 PM Signed Love Duarte Odette 1950 REFERRING PHYSICIAN: Effie Vaz APRN.* CHIEF COMPLAINT: Follow Up HPI: The patient is a 73 year old female presents with abnormal right breast ultrasound. She is s/p left breast needle core biopsy December 2021 - benign findings. Mammograms 01/01/2023 - no abnormalities She has a history of left breast cancer - stage 2 - T1 N1, she had 13 lymph nodes removed, in 2015. She notes slight left upper extremity lymphedema. She denies palpable breast masses She notes a skin tag in area of left axilla She denies breast pain She denies nipple discharge. Her mother of breast cancer at age 60, no ovarian cancer in family known. Her gynecological history is as follows: menarche onset at age 15, , first at age 23, breast feeding 6-9 mnths for each , BCP use initially at age 22 intermittently for 2-3 y 01/29/2024 IMPRESSION: Irregular mass in the right breast is highly suggestive of malignancy. An ultrasound guided biopsy is recommended. BI-RADS Category 5: Highly Suggestive of Malignancy PAST MEDICAL HISTORY Diagnosis Date Arthritis Breast [...] and pills CARPAL TUNNEL 2013 Bilateral COLONOSCOPY 2017 repeat 5 yrs COLONOSCOPY FLX DX W/COLLJ SPEC WHEN PFRMD 12/19/2020 DILATION AND CURETTAGE DXAND/THER NONOBST (more content not included)... Normal [facility] CNOVSPon 01-29-2024 CNOVSP Visit (SP) Office (KASANDRA) LOVE PINO ([id number]) 1950 F TXT Date Time Provider Department 01/29/24 11:30 AM EFFIE VAZ During your visit today, we recorded the following information about you: Pulse Blood pressure Weight 93/minute 117/79 86.3 kg Effie Vaz APRN.CNP 01/29/2024 11:14 AM Signed Chief Complaint Patient presents with: Established Patient HPI: Love Pino is a 73 year old female who presents here today [...] nuclear grade 2. ER >90%, strong and OR 60%, weak to moderate. HER2 quantified at [...] wanted second opinion and was referred to [facility]. L dx mamm/US done. Bx not done. Recommendation to repeat MRI in 6 months. Pt. had R dx mamm/US this morning. Appetite:Too good. Energy level:I think it's good. Denies fevers or recent illness. Resp:denies cough or sob Cardiac:denies chest pain/palpitations GI:denies abd pain, occ. 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 Past medical history, appointments, medications, allergies reviewed. No changes. EXAM: BP 117/79 Pulse 93 Wt 86.3 kg (190 lb 4.1 oz) LMP 01/27/2003 SpO2 96% BMI 34.57 kg/m? APPEARANCE Well appearing, alert, in no [...] no suspicious rashes or lesions RADIOLOGY: Mammogram 01/03/24: IMPRESSION: INCOMPLETE: NEED ADDITIONAL IMAGING EVALUATION The asymmetry in the right breast is indeterminate. Additional views are recommended. R dx mammogram 01/29/24: IMPRESSION: Irregular mass in the right breast is highly suggestive of malignancy. An ultrasound guided biopsy is recommended. BI-RADS Category 5: Highly Suggestive of Malignancy R breast US 01/29/24: ULTRASOUND FINDINGS: Ultrasound demonstrates an irregular not parallel irregular mass with indistinct margins measuring 0.6 cm in the middle depth region of the right breast at 11 o'clock. ASSESSMENT/PLAN: 1. Encounter for follow-up surveillance of breast cancer - ICD9: V67.9, V10.3, ICD10: Z08, Z85.3 (primary diagnosis) 2. Personal history of breast cancer - ICD9: V10.3, ICD10: Z85.3 3. 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 - No concerning findings on exam. - Completed 5 years of arimidex therapy 2020. Tolerated fairly well except joint aches/pains. - Reviewed mammograms/R US with pt. - R breast biopsy recommended. - Follow up with Dr. Meeks as scheduled. - Follow up pending R breast biopsy. - Pt. aware to call office with any questions/concerns. The sensitive examination was discussed with the Patient or Patient's Authorized Storage Worker. As applicable, any other physician (more content not included)... Normal [facility] DBT Breast - right diagnosti c for implanton 01-29-2024 IMPRESSION: Irregular mass in the right breast is highly suggestive of malignancy. An ultrasound guided biopsy is recommended. BI-RADS Category 5: Highly Suggestive of Malignancy Results and recommendations reviewed with the patient. Informed consent was signed in the office today. Interpreting Radiologist: Gisselle Kent M.D. Tube Closing Machine Operator: DARIAN Transcribe Date/Time: Jan 29 2024 8:41A Dictated by: GISSELLE KENT MD This examination was interpreted and the report reviewed and electronically signed by: GISSELLE KENT MD on Jan 29 2024 9:48AM [facility] RADIOLOG[facility] * * *Final Report* * * DATE OF EXAM: Jan 29 2024 9:13AM [facility] 0629 - [place] RADHA MARISCAL RT / PROCEDURE REASON: multiple diagnoses * * * * Physician Interpretation * * * * RESULT: [address] [place] [address] HISTORY: Patient is 73 years old and is seen for diagnostic evaluation of abnormal mammogram in the right breast. The patient has a history of left breast cancer in 2016. COMPARISON STUDIES: The present examination has been compared to prior imaging studies dated 01/01/2023 (mammogram) and 01/03/2024 (mammogram). MAMMOGRAM TECHNIQUE: The study was acquired using full field digital technology and interpreted from soft copy. Digital Breast Tomosynthesis (DBT) images were obtained and used to assist in the interpretation of this examination. Computer-aided detection was utilized by the radiologist in the interpretation of this examination. MAMMOGRAM FINDINGS: The breast is heterogeneously dense, which may obscure small masses. There is an isodense, irregular mass measuring 0.7 cm with spiculated margins in the superior right breast. ULTRASOUND TECHNIQUE: Targeted ultrasound of the indicated area was performed. Manzanares scale images were saved. ULTRASOUND FINDINGS: Ultrasound demonstrates an irregular not parallel irregular mass with indistinct margins measuring 0.6 cm in the middle depth region of the right breast at 11 o'clock. DIVISION OF RADIOLOGY Provider, [facility] - 01/29/2024 * * *Final Report* * * DATE OF EXAM: Jan 29 2024 9:13AM WRW 0629 - MAVERICK RADHA MARISCAL RT / PROCEDURE REASON: multiple diagnoses * * * * Physician Interpretation * * * * RESULT: [facility] [address] [place] [address] HISTORY: Patient is 73 years old and is seen for diagnostic evaluation of abnormal mammogram in the right breast. The patient has a history of left breast cancer in 2016. COMPARISON STUDIES: The present examination has been compared to prior imaging studies dated 01/01/2023 (mammogram) and 01/03/2024 (mammogram). MAMMOGRAM TECHNIQUE: The study was acquired using full field digital technology and interpreted from soft copy. Digital Breast Tomosynthesis (DBT) images were obtained and used to assist in the interpretation of this examination. Computer-aided detection was utilized by the radiologist in the interpretation of this examination. MAMMOGRAM FINDINGS: The breast is heterogeneously dense, which may obscure small masses. There is an isodense, irregular mass measuring 0.7 cm with spiculated margins in the superior right breast. ULTRASOUND TECHNIQUE: Targeted ultrasound of the indicated area was performed. Manzanares scale images were saved. ULTRASOUND FINDINGS: Ultrasound demonstrates an irregular not parallel irregular mass with indistinct margins measuring 0.6 cm in the middle depth region of the right breast at 11 o'clock. IMPRESSION IMPRESSION: Irregular mass in the right breast is highly suggestive of malignancy. An ultrasound guided biopsy is recommended. BI-RADS Category 5: Highly Suggestive of Malignancy Results and recommendations reviewed with the patient. Informed consent was signed in the office today. Interpreting Radiologist: Gisselle Kent M.D. Tube Closing Machine Operator: Clover Transcribe Date/Time: Jan 29 2024 8:41A Dictated by: GISSELLE KENT MD This examination was interpreted and the report reviewed and electronically signed by: GISSELLE KENT MD on Jan 29 2024 9:48AM EST [facility] MAVERICK DIAG W LOIDA RTon 024 MAVERICK DIAG W LOIDA RT * * *Final Report* * * DATE OF EXAM: Jan 29 2024 9:13AM W 0629 - MAVERICK DIAG W LOIDA RT / PROCEDURE REASON: multiple diagnoses * * * * Physician Interpretation * * * * RESULT: [place] [address] HISTORY: Patient is 73 years old and is seen for diagnostic evaluation of abnormal mammogram in the right breast. The patient has a history of left breast cancer in 2016. COMPARISON STUDIES: The present examination has been compared to prior imaging studies dated 01/01/2023 (mammogram) and 01/03/2024 (mammogram). MAMMOGRAM TECHNIQUE: The study was acquired using full field digital technology and interpreted from soft copy. Digital Breast Tomosynthesis (DBT) images were obtained and used to assist in the interpretation of this examination. Computer-aided detection was utilized by the radiologist in the interpretation of this examination. MAMMOGRAM FINDINGS: The breast is heterogeneously dense, which may obscure small masses. There is an isodense, irregular mass measuring 0.7 cm with spiculated margins in the superior right breast. ULTRASOUND TECHNIQUE: Targeted ultrasound of the indicated area was performed. Manzanares scale images were saved. ULTRASOUND FINDINGS: Ultrasound demonstrates an irregular not parallel irregular mass with indistinct margins measuring 0.6 cm in the middle depth region of the right breast at 11 o'clock. IMPRESSION: Irregular mass in the right breast is highly suggestive of malignancy. An ultrasound guided biopsy is recommended. BI-RADS Category 5: Highly Suggestive of Malignancy Results and recommendations reviewed with the patient. Informed consent was signed in the office today. Interpreting Radiologist: Gisselle Kent M.D. Tube Closing Machine Operator: DARIAN Transcribe Date/Time: Jan 29 2024 8:41A Dictated by: GISSELLE KENT MD This examination was interpreted and the report reviewed and electronically signed by: GISSELLE KENT MD on Jan 29 2024 9:48AM EST [id number] Normal [facility] [employer] BREAST Curate.Us RTon 01-28 [facility] US BREAST LTD RT * * *Final Report* * * DATE OF EXAM: Jan 29 2024 9:34AM WRU 0594 - [facility] [employer] BREAST LTD RT / PROCEDURE REASON: multiple diagnoses * * * * Physician Interpretation * * * * [place] [address] HISTORY: Patient is 73 years old and is seen for diagnostic evaluation of abnormal mammogram in the right breast. The patient has a history of left breast cancer in 2016. COMPARISON STUDIES: The present examination has been compared to prior imaging studies dated 01/01/2023 (mammogram) and 01/03/2024 (mammogram). MAMMOGRAM TECHNIQUE: The study was acquired using full field digital technology and interpreted from soft copy. Digital Breast Tomosynthesis (DBT) images were obtained and used to assist in the interpretation of this examination. Computer-aided detection was utilized by the radiologist in the interpretation of this examination. MAMMOGRAM FINDINGS: The breast is heterogeneously dense, which may obscure small masses. There is an isodense, irregular mass measuring 0.7 cm with spiculated margins in the superior right breast. ULTRASOUND TECHNIQUE: Targeted ultrasound of the indicated area was performed. Manzanares scale images were saved. ULTRASOUND FINDINGS: Ultrasound demonstrates an irregular not parallel irregular mass with indistinct margins measuring 0.6 cm in the middle depth region of the right breast at 11 o'clock. IMPRESSION: Irregular mass in the right breast is highly suggestive of malignancy. An ultrasound guided biopsy is recommended. BI-RADS Category 5: Highly Suggestive of Malignancy Results and recommendations reviewed with the patient. Informed consent was signed in the office today. Interpreting Radiologist: Gisselle Kent M.D. Tube Closing Machine Operator: DARIAN Transcribe Date/Time: Jan 29 2024 9:24A Dictated by : GISSELLE KENT MD This examination was interpreted and the report reviewed and electronically signed by: GISSELLE KENT MD on Jan 29 2024 9:48AM EST [id number] Normal [facility] No Panel Informationon 01-28 Radiology Study observation (narrative) [facility] No Panel InformationOrdered By: [facility] Provider on 01-29-2024 [facility] US Breast - right limitedon 01-29-2024 IMPRESSION: Irregular mass in the right breast is highly suggestive of malignancy. An ultrasound guided biopsy is recommended. BI-RADS Category 5: Highly Suggestive of Malignancy Results and recommendations reviewed with the patient. Informed consent was signed in the office today. Interpreting Radiologist: Gisselle Kent M.D. Tube Closing Machine Operator: DARIAN Transcribe Date/Time: Jan 29 2024 9:24A Dictated by : GISSELLE KENT MD This examination was interpreted and the report reviewed and electronically signed by: GISSELLE KENT MD on Jan 29 2024 9:48AM EST DIVISION OF RADIOLOGY * * *Final Report* * * DATE OF EXAM: Jan 29 2024 9:34AM [facility] 0594 - MAVERICK BREAST [facility] RT / PROCEDURE REASON: multiple diagnoses * * * * Physician Interpretation * * * * [address] [address] [place] [address] HISTORY: Patient is 73 years old and is seen for diagnostic evaluation of abnormal mammogram in the right breast. The patient has a history of left breast cancer in 2016. COMPARISON STUDIES: The present examination has been compared to prior imaging studies dated 01/01/2023 (mammogram) and 01/03/2024 (mammogram). MAMMOGRAM TECHNIQUE: The study was acquired using full field digital technology and interpreted from soft copy. Digital Breast Tomosynthesis (DBT) images were obtained and used to assist in the interpretation of this examination. Computer-aided detection was utilized by the radiologist in the interpretation of this examination. MAMMOGRAM FINDINGS: The breast is heterogeneously dense, which may obscure small masses. There is an isodense, irregular mass measuring 0.7 cm with spiculated margins in the superior right breast. ULTRASOUND TECHNIQUE: Targeted ultrasound of the indicated area was performed. Manzanares scale images were saved. ULTRASOUND FINDINGS: Ultrasound demonstrates an irregular not parallel irregular mass with indistinct margins measuring 0.6 cm in the middle depth region of the right breast at 11 o'clock. DIVISION OF RADIOLOGY Provider, [facility] - 01/29/2024 * * *Final Report* * * DATE OF EXAM: Jan 29 2024 9:34AM WRU 0594 - MAVERICK BREAST LTD RT / PROCEDURE REASON: multiple diagnoses * * * * Physician Interpretation * * * * [place] [address] HISTORY: Patient is 73 years old and is seen for diagnostic evaluation of abnormal mammogram in the right breast. The patient has a history of left breast cancer in 2016. COMPARISON STUDIES: The present examination has been compared to prior imaging studies dated 01/01/2023 (mammogram) and 01/03/2024 (mammogram). MAMMOGRAM TECHNIQUE: The study was acquired using full field digital technology and interpreted from soft copy. Digital Breast Tomosynthesis (DBT) images were obtained and used to assist in the interpretation of this examination. Computer-aided detection was utilized by the radiologist in the interpretation of this examination. MAMMOGRAM FINDINGS: The breast is heterogeneously dense, which may obscure small masses. There is an isodense, irregular mass measuring 0.7 cm with spiculated margins in the superior right breast. ULTRASOUND TECHNIQUE: Targeted ultrasound of the indicated area was performed. Manzanares scale images were saved. ULTRASOUND FINDINGS: Ultrasound demonstrates an irregular not parallel irregular mass with indistinct margins measuring 0.6 cm in the middle depth region of the right breast at 11 o'clock. IMPRESSION IMPRESSION: Irregular mass in the right breast is highly suggestive of malignancy. An ultrasound guided biopsy is recommended. BI-RADS Category 5: Highly Suggestive of Malignancy Results and recommendations reviewed with the patient. Informed consent was signed in the office today. Interpreting Radiologist: Gisselle Kent M.D. Tube Closing Machine Operator: DARIAN Transcribe Date/Time: Jan 29 2024 9:24A Dictated by : GISSELLE KENT MD This examination was interpreted and the report reviewed and electronically signed by: GISSELLE KENT MD on Jan 29 2024 9:48AM EST [facility] CNPNon 01-06-2024 CNPN Telephone (RADMN) LOVE PINO ([id number]) 1950 F TXT Date Time Provider Department 01/06/24 LESVIA DE LEÓN RADMN During your visit today, we recorded the following information about you: Allergies As of Date: 01/06/2024 Noted Allergy Reaction PENICILLIN 01/12/2016 10 - Anaphylaxis SULFA (SULFONAMIDE ANTIBIOTICS) 01/12/2016 9 - Itching Date Reviewed: 07/15/2023 Reviewed by: Lakeshia Huynh MA - Fully Assessed Reason for Visit: Mammogram Result Call Back [[id number]] Cmt: right breast diag mamm and us per Prescriptions as of 01/06/2024 - guaiFENesin (MUCINEX) 600 mg 12 hr tablet Take 1,200 mg by mouth once daily. - Biotin 1 mg tab Take 1 tablet by mouth every other day. - naproxen sodium (ALEVE ORAL) Take 1 tablet by mouth two times a day. - docusate sodium (COLACE ORAL) Take 1 tablet by mouth once daily. - CALCIUM CARBONATE (TUMS ORAL) Take 1-2 tablets by mouth once daily. - Cholecalciferol, Vitamin D3, 50 mcg (2,000 unit) cap Take 1 capsule by mouth once daily. - Wttqwrvd-Ilyczsj-Vuds-L utein tab Take 1 tablet by mouth once daily. Problem List As Of Date 01/06/2024 Noted Resolved Breast cancer of upper-outer quadrant [...] rectal prolapse [K62.3] 03/14/2021 Hemorrhoids [K64.9] 03/14/2021 Obesity, Class I, BMI 30-34.9 [E66.9] 04/03/2021 Rectocele [N81.6] 04/06/2021 Incomplete uterovaginal prolapse [N81.2] 04/06/2021 Mixed incontinence [N39.46] 05/12/2021 Advance directive discussed with patient [Z71.8*12/26/2021 Age-related osteoporosis without current pathol*05/20/2023 Encounter Status:Closed by SHELLY ASTUDILLO on 01/06/24 [facility] [place] Telephone (KASANDRA) LOVE PINO ([id number]) 1950 F TXT Date Time Provider Department 01/06/24 EFFIE VAZ During your visit today, we recorded the following information about you: Effie Vaz APRN.CNP 01/06/2024 12:23 PM Signed Please inform pt. that the radiologist would like additional images of her R breast. Please schedule R dx mamm/US soon. Please push out upcoming OV until after above. Thank you. Effie Vaz APRN.Irlanda Maynard KiraMALIKA 01/06/2024 12:59 PM Signed Pt. Notified that radiologist is requesting additional images of mammogram. Pt. Voiced understanding, was given phone number to schedule those images. PSS please contact pt. Later this afternoon to reschedule appt. With Effie after those images obtained. Pt. Is aware you will be rescheduling her appt. Irlanda Malone MALIKA Ramirez Stephanie 01/07/2024 9:05 AM Signed Spoke with patient and rescheduled. Gabby Lantigua Allergies As of Date: 01/06/2024 Noted Allergy Reaction PENICILLIN 01/12/2016 10 - Anaphylaxis SULFA (SULFONAMIDE ANTIBIOTICS) 01/12/2016 9 - Itching Date Reviewed: 07/15/2023 Reviewed by: Lakeshia Huynh MA - Fully Assessed Primary Visit Diagnosis:Malignant neoplasm of upper-outer quadrant of left breast in female, estrogen receptor positive (HCC) [C50.412, Z17.0] Other Visit Diagnosis:Abnormal mammogram of right breast [R92.8] Order(s):[facility] DIAGNOSTIC RIGHT [[id number]] Order #: [id number] FUTURE BREAST LTD RIGHT [[id number]] Order #: [id number] FUTURE Prescriptions as of 01/07/2024 - guaiFENesin (MUCINEX) 600 mg 12 hr tablet Take 1,200 mg by mouth once daily. - Biotin 1 mg tab Take 1 tablet by mouth every other day. - naproxen sodium (ALEVE ORAL) Take 1 tablet by mouth two times a day. - docusate sodium (COLACE ORAL) Take 1 tablet by mouth once daily. - CALCIUM CARBONATE (TUMS ORAL) Take 1-2 tablets by mouth once daily. - Cholecalciferol, Vitamin D3, 50 mcg (2,000 unit) cap Take 1 capsule by mouth once daily. - Wtdyyexj-Ipjpxbj-Hzqd-L utein tab Take 1 tablet by mouth once daily. Problem List As Of Date 01/06/2024 Noted Resolved Breast cancer of upper-outer quadrant [...] rectal prolapse [K62.3] 03/14/2021 Hemorrhoids [K64.9] 03/14/2021 Obesity, Class I, BMI 30-34.9 [E66.9] 04/03/2021 Rectocele [N81.6] 04/06/2021 Incomplete uterovaginal prolapse [N81.2] 04/06/2021 Mixed incontinence [N39.46] 05/12/2021 Advance directive discussed with patient [Z71.8*12/26/2021 Age-related osteoporosis without current pathol*05/20/2023 Encounter Status:Closed by GABBY LANTIGUA on 01/07/24 [facility] MAVERICK SCREENING W TOMOon 01-02 MAVERICK SCREENING W LOIDA * * *Final Report* * * DATE OF EXAM: Jan 03 2024 8:32AM WRW 0582 - MAVERICK SCREENING W LOIDA / PROCEDURE REASON: multiple diagnoses * * * * Physician Interpretation * * * * RESULT: #[id number] - MAVERICK SCREENING W LOIDA BILATERAL DIGITAL SCREENING MAMMOGRAM TOMOSYNTHESIS WITH CAD: 01/03/2024 HISTORY: /Screening Mammogram with LOIDA - patient reports NO breast symptoms /priors available for comparison Multiple Diagnoses. RESULT: TECHNIQUE: The study was acquired using full field digital technology and interpreted from soft copy. Digital Breast Tomosynthesis (DBT) images were obtained and used to assist in the interpretation of this examination. Current study was also evaluated with a Computer Aided Detection (CAD). Comparison is made to exams dated: 01/01/2023 mammogram, 12/11/2021 mammogram, and 12/20/2021 mammogram - [facility]. The breasts are heterogeneously dense, which may obscure small masses. The patient is status post lumpectomy left breast. The left breast has post-operative findings. There is an asymmetry in the right breast superior lateral quadrant middle depth. No other significant masses, calcifications, or other findings are seen in either breast. IMPRESSION: INCOMPLETE: NEED ADDITIONAL IMAGING EVALUATION The asymmetry in the right breast is indeterminate. Additional views are recommended. Lesvia De León M.D., mc/erma:01/06/2024 10:42:50 Locomotive Repairer Diesel(s): RT Harleen(R)(M), [facility] letter sent: Additional Imaging Needed Mammogram BI-RADS: Category 0: Incomplete: Need Additional Imaging Evaluation If this report indicates you need additional imaging, and it has NOT yet been performed, please call , to schedule. We sincerely thank you for choosing the [facility] for your breast imaging needs. Multiple national specialty organizations have released breast cancer screening guidelines for women at average risk for developing breast cancer - guidelines that are based on both evidence and opinion, yet differ on when to start and how often to screen for breast cancer. With representation from Breast Imaging, Internal Medicine, Women's Health, Family Medicine, and Medical/Surgical Oncology, the [facility] has carefully reviewed the data and reached the following consensus: 1) All women should engage in shared decision-making with their providers to decide when to start and how often to screen; 2) All women should have the opportunity to start screening mammography at age 40; 3) For women ages 45-55, we recommend annual screening mammograms; 4) For women ages 55 and over, we support both the transition from an annual to a biennial interval if this aligns more with patient's values and preferences, or continuation with annual screening; 5) All women should discuss with their providers when to stop screening mammograms. Tube Closing Machine Operator: Erma Transcribe Date/Time: Jan 03 2024 8:09A Dictated by: LESVIA DE LEÓN MD This examination was interpreted and the report reviewed and electronically signed by: LESVIA DE LEÓN MD on Jan 06 2024 10:42AM EST [id number] Normal [facility] Absolute lymphocyte countOrd ered By: Justin Das on 07-08-2023 Lymphocytes Auto (Unsp spec) [#/Vol] 1.61 10*3/uL 0.83-4.51 [facility] Automated lymphocyte count a s percentage of total leukocytesOrdered By: Justin Das on 07-08-2023 Lymphocytes/100 WBC Auto (Unsp spec) 27.2 % 19-41 [facility] Basophil percentageOrdered B y: Justin Das on 07-08-2023 Basophils/100 WBC (Bld) 0.8 % 0-1 [facility] Chloride [Moles/Vol] 106 mmol/L 98-107 [facility] Eosinophils/100 WBC (Bld) 2.9 % 0-5 [facility] Glucose [Mass/Vol] 110 mg/dL 74-106 [facility] Comment on above: Fasting Glucose resu lt from 100 to 125 mg/dL suggests IMPAIRED HOMEOSTASIS per A.D.A. criteria. Hemoglobin (Bld) [Mass/Vol] 14.5 g/dL 12.0-15.0 [facility] Monocytes/100 WBC (Bld) 9.8 % 0-10 [facility] Neutrophils (Bld) [#/Vol] 3.5 10*3/uL 2.0-7.7 [facility] Neutrophils/100 WBC (Bld) 59.1 % 47-70 [facility] Potassium [Moles/Vol] 3.9 mmol/L 3.5-5.1 [facility] Sodium [Moles/Vol] 142 mmol/L 136-145 [facility] WBC (Bld) [#/Vol] 5.9 10*3/uL 4.4-11.0 [facility] Determination of erythrocyte mean corpuscular volume (MCV)Ordered By: Justin Das on 07-08-2023 MCV (RBC) [Entitic vol] 93.8 fL 81-99 [facility] Erythrocyte distribution wid th ratioOrdered By: Justin Das on 07-08-2023 Erythrocyte distribution width (RBC) [Ratio] 13.1 % 11.6-14.6 [facility] Erythrocyte distribution wid th standard deviationOrdered By: Justin Das on 07-08-2023 Erythrocyte distribution width (RBC) [Entitic vol] 45.0 fL 35.1-43.9 [facility] Hematocrit Auto (Bld) [Volum e fraction]Ordered By: Justin Das on 07-08-2023 Hematocrit (Bld) [Volume fraction] 46.8 % 37-47 [facility] Immature granulocytes/100 WB C Auto (Bld)Ordered By: Justin Das on 07-08-2023 Immature granulocytes/100 WBC (Bld) 0.200 % 0.0-0.9 [facility] Comment on above: IG% - Immature Granu locytes (promyelocytes, myelocytes and metamyelocytes) > 1% indicates that a LEFT SHIFT is Present. Laboratory - Chemistry and C hemistry - challengeOrdered By: Justin Das on 07-08-2023 CO2 [Moles/Vol] 33.0 mmol/L 21.0-32.0 [facility] Urea nitrogen/Creatinine [Mass ratio] 26.2 mg/mg 10-20 [facility] Laboratory - Hematology and Cell countsOrdered By: Justin Das on 07-08-2023 MCH (RBC) [Entitic mass] 29.1 pg 27.0-32.0 [facility] MCHC (RBC) [Mass/Vol] 31.0 g/dL 32-36 [facility] Nucleated RBC/100 WBC (Bld) [Ratio] 0 % 0-5 [facility] Platelet mean volume (Bld) [Entitic vol] 8.9 fL 6.2-12.0 [facility] Platelets (Bld) [#/Vol] 390 10*3/uL 150-450 [facility] No Panel InformationOrdered By: Justin Das on 07-08-2023 Estimated GFR (MDRD) Amer 96 mL/min >60 [facility] Comment on above: GFR Calc Estimated GFR (MDRD) Non-Af Amer 80 mL/min >60 [facility] Comment on above: Non- GFR Calc RBC Auto (Bld) [#/Vol]Ordere d By: Justin Das on 07-08-2023 RBC (Bld) [#/Vol] 4.99 10*6/uL 4.2-5.4 [facility] Serum or plasma calcium jeffery urement (mass/volume)Ordered By: Justin Das on 07-08-2023 Calcium [Mass/Vol] 9.7 mg/dL 8.5-10.1 [facility] Serum or plasma creatinine m easurement (mass/volume)Ordered By: Justin Das on 07-08-2023 Creatinine [Mass/Vol] 0.76 mg/dL 0.55-1.02 [facility] Comment on above: The validity of the calculated GFR & GFRAA in patients over 70 years has not been determined. Clinical correlation is essential. Serum or plasma urea nitroge n measurement (mass/volume)Ordered By: Justin Das on 07-08-2023 Urea nitrogen [Mass/Vol] 20 mg/dL 7-18 [facility] Thin prep Papanicolaou smear with manual screeningOrdered By: Justin Das on 07-08-2023 Thin prep Papanicolaou smear with manual screening 3.6 g/dL 3.2-5.0 [facility] Thin prep Papanicolaou smear with manual screening 3 5-15 [facility] US BREAST BIOPSY LEFT (POC) SURG USE ONLYon 12-28-2021 [facility] MAVERICK SCREENING W TOMOon 12-11 [facility] ANES POSTPROC EVALon 021 ANES POSTPROC EVAL HNO ID: [id number] Author: Tru Garnett MD Service: Anesthesiology Author Type: Anesthesiologist Type: Anesthesia Postprocedure Evaluation Filed: 04/06/2021 5:42 PM Note Text: POST ANESTHESIA EVALUATION NOTE : 1950 Procedure Summary Date: 04/06/21 Room / Location[place] OR06 / [place] Anesthesia Start: 1138 Anesthesia Stop: 1635 Procedures: VAGINAL HYSTERECTOMY W/ REMOVAL OF TUBE(S), AND/OR OVARY(S) W/ REPAIR ENTEROCELE, UTERUS 250 G OR LESS (N/A Vagina ) COLPOPEXY VAGINAL VAULT SUSPENSION INTRA-PERITONEAL APPROACH (N/A Vagina ) ANTERIOR COLPORRHAPHY REPAIR CYSTOCELE WITH OR W/O REPAIR URETHROCELE INCLUDING CYSTOURETHROSCOPY WHEN PERFORMED (N/A Vagina ) COLPORRHAPHY POSTERIOR (N/A Vagina ) CYSTOSCOPY (N/A Bladder) SUSPENSION BLADDER SLING TAPE TRANSVAGINAL (N/A Vagina ) Diagnosis: Cystocele, midline Incomplete uterovaginal prolapse Rectocele Vaginal atrophy Mixed stress and urge incontinence Hemorrhoids, unspecified hemorrhoid type Preoperative examination Surgeons: Giana Lima MD Responsible Provider: Tru Garnett MD Anesthesia Type: general ASA Status: 3 Anesthesia Type: general Last vitals Vitals Value Taken Time BP 105/58 04/06/21 1730 Temp 36.6 ?C (97.9 ?F) 04/06/21 1630 Pulse 89 04/06/21 1730 Resp 20 04/06/21 1730 SpO2 98 % 04/06/21 1730 Post Anesthesia Patient Status Patient Evaluation: bedside. Anticipated Disposition: phase 2 then home. Neurological Status: aware and responsive. Pulmonary Status: breathing comfortably on room air Airway Control: returned to baseline unsupported. Cardiovascular Status: stable. Pain Management: clinically adequate Postoperative Hydration: acceptable. Intraoperative Events: no significant anesthesia events Post Operative Nausea/Vomiting Status: no significant post operative nausea or vomiting Anesthetic Observations: Recommendation: continue current plan of care. Anesthesia Observations No Documentation SIGNATURE: Tru Garnett MD PATIENT NAME: Love Pino DATE: April 06, 2021 TIME: 5:41 PM CSN: [id number] [facility] ANES PRE-OPon 04-06-2021 ANES PRE-OP HNO ID: [id number] Author: Tru Garnett MD Service: Anesthesiology Author Type: Anesthesiologist Type: Anesthesia Preprocedure Evaluation Filed: 04/06/2021 10:46 AM Note Text: ANESTHESIOLOGY DAY OF SURGERY NOTE : 1950 Procedure Information Date/Time: 04/06/21 1126 Procedures: VAGINAL HYSTERECTOMY W/ REMOVAL OF TUBE(S), AND/OR OVARY(S) W/ REPAIR ENTEROCELE, UTERUS 250 G OR LESS (N/A Vagina ) COLPOPEXY VAGINAL VAULT SUSPENSION INTRA-PERITONEAL APPROACH (N/A Vagina ) ANTERIOR COLPORRHAPHY REPAIR CYSTOCELE WITH OR W/O REPAIR URETHROCELE INCLUDING CYSTOURETHROSCOPY WHEN PERFORMED (N/A Vagina ) COLPORRHAPHY POSTERIOR (N/A Vagina ) CYSTOSCOPY (N/A Bladder) SUSPENSION BLADDER SLING TAPE TRANSVAGINAL (N/A Vagina ) [place] Surgeons: Giana Lima MD Estimated body mass index is 32.79 kg/m? as calculated from the following: Height as of 03/24/21: 158.8 cm (5' 2.5). Weight as of 03/24/21: 82.6 kg (182 lb 3.2 oz). Most recent hematocrit and potassium results: Hematocrit 44.1 03/24/2021 Potassium 4.4 03/24/2021 Relevant Problems CARDIO (+) Hemorrhoids (+) Venous insufficiency (chronic) (peripheral) I - PHYSICAL EVALUATION AIRWAY Patient intubated: No. Tracheostomy tube not present Mallampati: I. TM distance: >3 FB. Neck ROM: full ROM without neurological symptoms. Mouth opening: adequate. Short neck: no. Thick neck: no DENTAL Normal dental observations. Dental findings: teeth intact. Additional exam findings: no II - ANESTHESIA PLAN ASA Score: 3 Anesthetic Plan: general Airway type: ETT The patient is not a current smoker. NPO Status: adequate Monitoring plan: standard ASA. Postoperative analgesic plan: parenteral or oral opioids. Anesthetic Risks, Benefits, Alternatives, Personnel Discussed. Consent obtained from: patient.Patient / Surrogate agrees to blood products: blood products not planned DNR status not reviewed with patient and/or family prior to surgery. Significant changes in the patient condition since the History and Physical, not otherwise documented in primary service progress note: no. Potential Anesthesia issues that may suggest increased risk of complications or contraindication to planned procedure: none. Vitals Value Taken Time BP 149/90 04/06/21 1024 Pulse 84 04/06/21 1024 Resp 16 04/06/21 1024 Temp 36.4 ?C (97.5 ?F) 04/06/21 1024 SpO2 94 % 04/06/21 1024 Facility-Administered Medications as of 04/06/2021 Medication Dose Route Frequency - sodium chloride 0.9 % (flush) 2-10 mL (BD POSIFLUSH) 2-10 mL INTRAVENOUS q 12 H - acetaminophen 1,000 mg tab(s) (TYLENOL) 1,000 mg ORAL Pre-Op Once - promethazine 12.5 mg tab(s) (PHENERGAN) 12.5 mg ORAL Pre-Op Once - scopolamine 1 mg over 3 days 1 Patch (TRANSDERM-SCOP) 1 Patch TRANSDERMAL ONCE - metoclopramide HCl 10 mg injection (REGLAN) 10 mg INTRAVENOUS ONCE - lactated ringers iv infusion 5-30 mL/hr INTRAVENOUS CONTINUOUS Outpatient Medications as of 04/06/2021 Medication Sig - ibuprofen (ADVIL) 200 mg tablet Take 400 mg by mouth daily at bedtime. - acetaminophen (TYLENOL EXTRA STRENGTH) 500 mg tablet Take 500 mg by mouth every 8 hours as needed. - CALCIUM CARBONATE (TUMS ORAL) Take 1-2 tablets by mouth once daily. - latanoprost (XALATAN) 0.005 % ophthalmic solution Use 1 Drop in both eyes once daily. - Cholecalciferol, Vitamin D3, (VITAMIN D-3) 2,000 unit cap Take 1 capsule by mouth once daily. - Bymflbhb-Khmuamg-Jiow-L utein (CENTRUM SILVER ULTRA WOMEN'S) tab Take 1 tablet by mouth once daily. - naproxen sodium (ALEVE) 220 mg tablet Take 220 mg by mouth once daily. I have interviewed and examined the patient. I have reviewed the medical record and/or the pre-anesthesia evaluation, pertinent labs, and test results. This contains updated information obtained within 48 hours of Surgery/Procedure. SIGNATURE: Tru Garnett MD PATIENT NAME: Love Pino DATE: April 06, 2021 TIME: 10:45 AM CSN: [id number] [facility] BRIEF OP NOTon 04-06-2021 BRIEF OP NOT HNO ID: [id number] Author: Mary Manzanares MD Service: Urogynecology Author Type: Resident Type: Brief Op Note Filed: 04/06/2021 4:33 PM Note Text: Attestation signed by Giana Lima MD at 04/07/2021 9:43 AM I was present during the entire procedure and scrubbed for the entire procedure. I reviewed the resident's note above and made any necessary additions/corrections. Giana Lima MD Staff Physician, Department of Urogynecology BRIEF OPERATIVE / PROCEDURE NOTE LOG ID: [id number] SURGERY/PROCEDURE DATE: 04/06/2021 INCISION/PROCEDURE START TIME: 12:02 PM INCISION CLOSE/PROCEDURE END TIME: 4:18 PM SURGEON(S)/PROCEDURALIS T(S) AND SAP BUSINESS INTELLIGENCE CONSULTANT(S): Surgeon(s) and Role: * Giana Lima MD - Primary * Mary Manzanares MD - Resident - Assisting Physician Tiger Machine Operator: Corin Law PA-C SURGERY/PROCEDURE(S): Total vaginal hysterectomy and bilateral salpingectomy. Uterosacral ligament suspension. Anterior and posterior colporrhaphy with perineorrhaphy. Cystourethroscopy. ANESTHESIA: General FINDINGS: Incomplete uterovaginal prolapse. Rectocele. Cystocele. Normal appearing bladder without lesions, suture, or defects and bilateral ureteral efflux. ESTIMATED BLOOD LOSS: 100 mL IVF: 1600mL Urine: 200mL SPECIMENS: Uterus, cervix, and bilateral fallopian tubes. COMPLICATIONS: None PRE-OP/PRE-PROCEDURE DIAGNOSIS: Incomplete uterovaginal prolapse. Rectocele. Cystocele. POST-OP/POST-PROCEDURE DIAGNOSIS: Same as Preop SIGNATURE: Mary Manzanares MD PATIENT NAME: Love Pino DATE: April 06, 2021 TIME: 4:29 PM [facility] NURSING PROGon 04-06-2021 NURSING PROG HNO ID: [id number] Author: Cheryl Acosta, RN Service: Nursing Author Type: Registered Nurse Type: Nursing Progress Note Filed: 04/06/2021 9:09 PM Note Text: 1630 pt to PACU. Awakes briefly to VS. Moves randomly in bed, reorients easily. GOOD TCx4. Denies pain. PIV DANDI. Lotus pad in place with small bloody drng and mesh panties. VSS no s/sx of distress. 1750 pt to phase 2 in PACU. 1800 300ml NS instilled in gaytan per voiding trial orders. FC d/c'd per order. 0 pt up to BR, unable to urinate. Back to bed with assist. IV fluids KVO. 1899 Dr Lima called AND updated. States office will call pt on Sat to schedule appointment. States to replace FC. 1914 FC inserted without difficulty. Ice lotus pad AND mesh panties on. 1929 @ BS. Education given on drainage bag and leg bag changes. Update given that Dr. Lima's office will call tomorrow. Pt and verbalized understanding. D/c instructions given. 1939 pt tolerates PO, denies nausea. PIV d/c'd drsg on. 1999 pt dresses with 's assist. 2014 pt's instructed to pull car up to Entrance A for d/c. 2019 pt's back in unit, states that the car will not start. Security called for assistance, officer states they cannot jump batteries. 2024 ED called for assist, [place] [employer] officer in ED states he will assist pt's in lot A with a battery restart. 2049 pt d/c'd via wheelchair. [facility] OPERATIVE NOon 04-06-2021 OPERATIVE NO HNO ID: [id number] Author: Giana Lima MD Service: Urogynecology Author Type: Physician Type: Operative Report Filed: 04/09/2021 7:15 PM Note Text: OPERATIVE/PROCEDURE REPORT LOG ID: [id number] SURGERY/PROCEDURE DATE: 04/06/2021 INCISION/PROCEDURE START TIME: 12:02 PM INCISION CLOSE/PROCEDURE END TIME: 4:18 PM SURGEON(S)/PROCEDURALIS T(S) AND SAP BUSINESS INTELLIGENCE CONSULTANT(S): Surgeon(s) and Role: * Giana Lima MD - Primary * Mary Manzanares MD - Resident - Assisting Physician Tiger Machine Operator: Corin Law PA-C SURGERY/PROCEDURE(S): Transvaginal hysterectomy < 250 g Bilateral salpingectomy Anterior/Posterior colporrhaphy Uterosacral ligament intraperitoneal vaginal colpopexy Perineorrhaphy Cystoscopy ANESTHESIA: General FINDINGS: Normal small postmenopausal uterus with normal cervix Normal bilateral fallopian tubes and ovaries Normal 360 degree cysto without evidence of trauma, suture, or foreign body seen; ureteral orifice efflux seen bilaterally; urethra within normal limits Vaginal sweep was negative INDICATIONS: The patient is a 70 year old who presented for consultation for bothersome pelvic organ prolapse. She desired surgical management On pre-operative POP-Q exam, Aa =?+1.0?Ba = +2.0???C = -3.0? gh =?6.0??pb = 4.5??tvl = 9.0 Ap =?0?Bp = +1.0???D = -6.0 Patient declined urodynamics as she had no urinary symptoms or urinary incontinence. She desired removal of fallopian tubes for cancer-risk reduction. She was counseled about all the risks, benefits, alternatives, complications, indications, and personnel of the procedures performed which she accepted. An informed consent was signed. SURGERY/PROCEDURE DETAILS: The patient was taken to the operating room where a surgical time-out and safety checklist were performed. The patient was then given prophylactic antibiotics and compression stockings were applied bilaterally. She underwent general anesthesia without any difficulty. She was positioned in the high dorsal lithotomy position using padded adjustable stirrups, making sure that her lower extremities were not overly extended or flexed. She was prepped and draped in the normal sterile fashion. A Gaytan catheter was inserted and the bladder was drained of all urine. A short weighted speculum was placed. A lonestar retractor was set up with blue hooks for retraction. The cervix was grasped at 3 o'clock and 9 o'clock with two single-tooth tenaculum. Dilute vasopressin was instilled into the intended site of colpotomy until blanching was noted throughout, a circumferential incision was made on the cervix sharply.The bladder was dissected off of the cervix with electrocautery. The posterior peritoneum was then grasped with pick-ups and entered sharply with Romero scissors. The uterosacral ligaments were cross-clamped with a Ilana clamp bilaterally, transected and suture ligated with 0 Vicryl. These were tagged for later use. A long Marcelo weighted retractor was then placed into the posterior cul-de-sac. The cardinal ligaments were cross-clamped, transected and suture ligated with 0 Vicryl. Dissection was then performed anteriorly until the vesicouterine peritoneum could be identified which was elevated and entered sharply. One finger confirmed proper entry, and a long right-angle retractor was placed into the abdominal cavity. The broad ligament including the uterine vessels were then cross-clamped, transected, and suture ligated with 0 Vicryl. The utero-ovarian ligament was doubly cross-clamped and transected. The utero-ovarian pedicle was tied with a free-tie, then suture-transfixed with a 0 Vicryl. This was repeated on the other side. The tubes and ovaries were examined bilaterally and noted to be completely normal both on visual inspection and with palpation. We then grabbed the fallopian tube with a Lynda clamp. It was clamped with a Ilana clamp, cut and suture ligated with a 0-Vicryl. This was repeated on the other side. Excellent hemostasis was noted. All specimen were sent to pathology. A 0 Vicryl was then used to suture the peritoneum to the posterior vaginal cuff along the entire posterior cuff. The long weighted retractor was then removed. The bowel was packed away with moistened laparotomy sponges, and short Allis clamps were placed on the uterosacral ligament insertion at the vaginal apex. A Breisky-Navratil retractor was used to protect the rectum. The uterosacral ligament was then palpated, roughly 2 cm above the ischial spine, a long Allis clamp was placed over the complex. Sutures were then placed through the uterosacral ligament complex at and above the level of the Allis clamp. First a stitch of 0 PDS was placed through the uterosacral ligament at the level of the clamp. A second stitch of 0 PDS was placed half a centimeter more cephalad. A third stitch of 0 PDS was placed half a centimeter more cephalad. These w (more content not included)... [facility] SURGICAL PATHOLOGYon 021 SURGICAL PATHOLOGY Specimen originated from [facility] Specimen #: [id number] Submitting Physician: GIANA LIMA FINAL DIAGNOSIS Uterus, cervix, right and left fallopian tubes, hysterectomy and bilateral salpingectomy - Cervix: significant pathologic abnormality. - Endometrium: Disordered proliferative pattern. - Myometrium: Leiomyomas. - Serosa: No significant pathologic abnormality. - Bilateral fallopian tubes: Fragmented fallopian tubes without significant pathologic abnormality. KG/PTC 04/11/2021 Priscilla Villarreal M.D. 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 Received in formalin labeled as uterus, cervix, bilateral fallopian tubes is a uterus with cervix with detached fallopian tubes weighing 89.9 grams an measuring 9.5 x 4.5 x 3.8 cm. The serosal surface is dark red and dull in appearance with areas of punctate hemorrhage. The serosal surface is martinez pink and granular. The external os is round in contour. The endocervical canal measures 3.5 cm in length and is martinez pink, smooth and glistening with focal nabothian cysts. The endometrial cavity measures 4.3 cm in length x 2.7 cm in greatest width. The endometrium is diffusely martinez red and thickened in appearance. Within the posterior endometrium towards the fundus is a gelatinous polypoid area measuring 1.0 x 0.8 cm. The remaining endometrium is unremarkable with a 0.1 cm thickness. The underlying myometrium is unremarkable with a 1.8 cm thickness. Multiple focal incidental myometrial bulging masses are appreciated averaging 0.6 cm in greatest dimension. Also present in the bottom of the specimen container are multiple fragments of apparent fallopian tube. Fragment #1 is consistent with a fimbriated end measuring 1.5 cm in length and is unremarkable. Fragment #2 measures 1.2 cm in length x 0.5 cm in diameter and does not demonstrate any fimbriae. Fragment #3 is also consistent with a portion of possible fimbriated end measuring 1.0 x 0.8 cm. Storage Worker sections are submitted as follows: A1 12 o'clock cervix, A2 6 o'clock cervix, A3 posterior endometrium with polypoid lesion totally submitted, A4 uninvolved posterior uterine wall full thickness section, A5 uninvolved anterior uterine wall full thickness section, A6 two incidental myometrial bulging masses, A7 fallopian tube fragment #1 totally submitted, A8 fallopian tube fragment #2 totally submitted, A9 fallopian tube fragment #3 totally submitted. MLG/rw 04/07/2021 Gross examination performed at [facility], [address] [place] [address] Date of Report: 04/11/2021 Date of Procedure: 04/06/2021 Date of Receipt: 04/06/2021 Submitted by: GIANA LIMA Location: [facility] Diagnostic interpretation performed at [facility], [facility] [place] [address]. CLIA Number: [id number] [facility] Confirm Blood Typeon 021 ABO/RH(D) Positive [facility] Comment on above: Performed By: #### C ONABO #### [facility] [address] [facility] [phone] Type and SCR (30D)on 021 ABO/RH(D) Positive [facility] Comment on above: Performed By: #### T [id number] #### [facility] [address] [facility] [phone] CT ABDOMEN/PELVIS W/WO CONTo n 04-05-2018 CT ABDOMEN/PELVIS W/WO CONT CT ABDOMEN/PELVIS W/WO CONT Ordering Physician: Ysabel Hernández 04/05/2018 10:16 AM COMPUTED TOMOGRAPHY ABDOMEN AND PELVIS WITH AND WITHOUT CONTRAST Clinical Statement: Hematuria TECHNIQUE: 3.75 mm thick axial images of the abdomen and pelvis were obtained before and after the administration of 130 cc of Isovue-300 intravenous contrast. The study was performed utilizing the urogram protocol. There were no prior studies available for comparison. FINDINGS: There is a small hiatal hernia. The lung bases show no acute abnormalities. The liver, spleen and pancreas show no acute abnormalities. The gallbladder is within normal limits. No ductal dilatation is shown. The adrenal glands are unremarkable. No renal calculi are present. The kidneys enhance normally with no hydronephrosis. The urinary bladder shows no acute abnormalities. No free fluid is shown. No adnexal mass lesions are identified. There is no evidence of bowel obstruction. There is diverticulosis. The appendix is unremarkable. The aorta shows no acute findings. No acute osseous abnormalities are seen. IMPRESSION: No calculi, obstruction or suspicious lesions identified. ---- Electronic Signature on File ---- Signed By: Yoseph Velásquez MD FACR [email or web address] Dictated: 04/06/2018 3:06 PM Signed: 04/06/2018 3:09 PM Reported By: YOSEPH VELÁSQUEZ M.D. Signed By: YOSEPH VELÁSQUEZ M.D. [facility] Vital Signs Date Time Vital Sign Value Performing Clinician Faci lity 10-21-2024 08:55-0400 Body mass index (BMI) [Ratio] 34.85 kg/m2 Effie Vaz [employer]CRAP [employer]OP ENGINEER Work Phone: [facility] 10-21-2024 08:55-0400 Body temperature 97.59 [degF] Effie Vaz [employer]CR[employer] ENGINEER Work Phone: [facility] 10-21-2024 08:55-0400 Body weight 87 kg Effie Vaz [employer].SCRAP [employer]OP ENGINEER Work Phone: [facility] 10-21-2024 08:55-0400 Diastolic blood pressure 85 mm[Hg] Effie Vaz [employer]ER.SCRAP [employer]OP ENGINEER Work Phone: [facility] 10-21-2024 08:55-0400 Heart rate 90 /min Effie Vaz [employer].SCR[employer]OP ENGINEER Work Phone: [facility] 10-21-2024 08:55-0400 SaO2% (BldA) [Mass fraction] 96 % Effie Vaz [employer].SCR[employer]OP ENGINEER Work Phone: [facility] 10-21-2024 08:55-0400 Systolic blood pressure 134 mm[Hg] Effie Vaz [employer].SCRAP [employer]OP ENGINEER Work Phone: [facility] 10-19-2024 09:08-0400 Body mass index (BMI) [Ratio] 35.25 kg/m2 Remington Sung MD Work Phone: [facility] 10-19-2024 09:08-0400 Body weight 88 kg Remington Sung MD Work Phone: [facility] 10-19-2024 09:08-0400 Diastolic blood pressure 84 mm[Hg] Remington Sung MD Work Phone: [facility] 10-19-2024 09:08-0400 Heart rate 86 /min Remington Sung MD Work Phone: [facility] 10-19-2024 09:08-0400 Respiratory rate 14 /min Remington Sung MD Work Phone: [facility] 10-19-2024 09:08-0400 Systolic blood pressure 157 mm[Hg] Remington Sung MD Work Phone: [facility] 10-06-2024 08:39-0400 Body mass index (BMI) [Ratio] 35.25 kg/m2 Lizeth Sifuentes [employer]ER.SCRAP [employer]OP ENGINEER Work Phone: [facility] 10-06-2024 08:39-0400 Body weight 88 kg Lizeth Sifuentes APRN.SCRAP DROP ENGINEER Work Phone: [facility] 10-06-2024 08:39-0400 Diastolic blood pressure 82 mm[Hg] Lizeth Sifuentes APRN.SCRAP DROP ENGINEER Work Phone: [facility] 10-06-2024 08:39-0400 Heart rate 80 /min Lizeth Sifuentes APRN.SCRAP DROP ENGINEER Work Phone: [facility] 10-06-2024 08:39-0400 Systolic blood pressure 131 mm[Hg] Lizeth Sifuentes APRN.SCRAP DROP ENGINEER Work Phone: [facility] 07-14-2024 13:03-0400 Body mass index (BMI) [Ratio] 34.85 kg/m2 Effie Vaz APRN.SCRAP [employer]OP ENGINEER Work Phone: [facility] 07-14-2024 13:03-0400 Body temperature 98.49 [degF] Effie Vaz APRN.SCRAP DROP ENGINEER Work Phone: [facility] 07-14-2024 13:03-0400 Body weight 87 kg Effie Vaz [employer]KER.SCRAP [employer]OP ENGINEER Work Phone: [facility] 07-14-2024 13:03-0400 Diastolic blood pressure 82 mm[Hg] Effie Vaz [employer]KER.SCRAP [employer]OP ENGINEER Work Phone: [facility] 07-14-2024 13:03-0400 Heart rate 93 /min Effie Vaz [employer] MAKER.SCRAP DROP ENGINEER Work Phone: [facility] 07-14-2024 13:03-0400 SaO2% (BldA) [Mass fraction] 95 % Effie Vaz [employer]KER.SCRAP DROP ENGINEER Work Phone: [facility] 07-14-2024 13:03-0400 Systolic blood pressure 130 mm[Hg] Effie Vaz [employer]KER.SCRAP [employer]OP ENGINEER Work Phone: [facility] 06-22-2024 09:45-0500 Body mass index (BMI) [Ratio] 34.89 kg/m2 Remington Sung MD Work Phone: [facility] 06-22-2024 09:45-0500 Body weight 87.09 kg Remington Sung MD Work Phone: [facility] 06-22-2024 09:45-0500 Diastolic blood pressure 90 mm[Hg] Remington Sung MD Work Phone: [facility] 06-22-2024 09:45-0500 Heart rate 96 /min Remington Sung MD Work Phone: [facility] 06-22-2024 09:45-0500 Respiratory rate 14 /min Remington Sung MD Work Phone: [facility] 06-22-2024 09:45-0500 Systolic blood pressure 148 mm[Hg] Remington Sung MD Work Phone: [facility] 06-09-2024 09:54-0500 Body temperature 98.71 [degF] Juan Lopez MD Work Phone: [facility] 06-09-2024 09:54-0500 Diastolic blood pressure 79 mm[Hg] Juan Lopez MD Work Phone: [facility] 06-09-2024 09:54-0500 Heart rate 84 /min Juan Lopez MD Work Phone: [facility] 06-09-2024 09:54-0500 SaO2% (BldA) [Mass fraction] 97 % Juan Lopez MD Work Phone: [facility] 06-09-2024 09:54-0500 Systolic blood pressure 120 mm[Hg] Juan Lopez MD Work Phone: [facility] 06-02-2024 09:34-0500 Body temperature 98.6 [degF] Juan Lopez MD Work Phone: [facility] 06-02-2024 09:34-0500 Diastolic blood pressure 84 mm[Hg] Juan Lopez MD Work Phone: [facility] 06-02-2024 09:34-0500 Heart rate 87 /min Juan Lopez MD Work Phone: [facility] 06-02-2024 09:34-0500 SaO2% (BldA) [Mass fraction] 97 % Juan Lopez MD Work Phone: [facility] 06-02-2024 09:34-0500 Systolic blood pressure 117 mm[Hg] Juan Lopez MD Work Phone: [facility] 05-26-2024 09:43-0500 Body temperature 98.6 [degF] Juan Lopez MD Work Phone: [facility] 05-26-2024 09:43-0500 Diastolic blood pressure 85 mm[Hg] Juan Lopez MD Work Phone: [facility] 05-26-2024 09:43-0500 Heart rate 79 /min Juan Lopez MD Work Phone: [facility] 05-26-2024 09:43-0500 SaO2% (BldA) [Mass fraction] 95 % Juan Lopez MD Work Phone: [facility] 05-26-2024 09:43-0500 Systolic blood pressure 122 mm[Hg] Juan Lopez MD Work Phone: [facility] 05-14-2024 11:32-0500 Body mass index (BMI) [Ratio] 34.89 kg/m2 Ibrahima Dhaliwal DO Work Phone: [facility] 05-14-2024 11:32-0500 Body temperature 98.2 [degF] Ibrahima Wadsworthi DO Work Phone: [facility] 05-14-2024 11:32-0500 Body weight 87.09 kg Ibrahima Dhaliwal DO Work Phone: [facility] 05-14-2024 11:32-0500 Diastolic blood pressure 86 mm[Hg] Ibrahima Wadsworthi DO Work Phone: [facility] 05-14-2024 11:32-0500 Heart rate 95 /min Ibrahima Dhaliwal DO Work Phone: [facility] 05-14-2024 11:32-0500 SaO2% (BldA) [Mass fraction] 97 % Ibrahima Dhaliwal DO Work Phone: [facility] 05-14-2024 11:32-0500 Systolic blood pressure 132 mm[Hg] Ibrahima Dhaliwal DO Work Phone: [facility] 05-07-2024 10:33-0500 Body mass index (BMI) [Ratio] 34.8 kg/m2 Juan Lopez MD Work Phone: [facility] 05-07-2024 10:33-0500 Body temperature 97.9 [degF] Juan Lopez MD Work Phone: [facility] 05-07-2024 10:33-0500 Body weight 86.86 kg Juan Lopez MD Work Phone: [facility] 05-07-2024 10:33-0500 Diastolic blood pressure 65 mm[Hg] Juan Lopez MD Work Phone: [facility] 05-07-2024 10:33-0500 Heart rate 76 /min Juan Lopez MD Work Phone: [facility] 05-07-2024 10:33-0500 Respiratory rate 15 /min Juan Lopez MD Work Phone: [facility] 05-07-2024 10:33-0500 SaO2% (BldA) [Mass fraction] 96 % Juan Lopez MD Work Phone: [facility] 05-07-2024 10:33-0500 Systolic blood pressure 125 mm[Hg] Juan Lopez MD Work Phone: [facility] 04-30-2024 08:01-0500 Body mass index (BMI) [Ratio] 34.69 kg/m2 Remington Sung MD Work Phone: [facility] 04-30-2024 08:01-0500 Body weight 86.59 kg Remington Sung MD Work Phone: [facility] 04-30-2024 08:01-0500 Diastolic blood pressure 82 mm[Hg] Remington Sung MD Work Phone: [facility] 04-30-2024 08:01-0500 Heart rate 85 /min Remington Sung MD Work Phone: [facility] 04-30-2024 08:01-0500 Respiratory rate 16 /min Remington Sung MD Work Phone: [facility] 04-30-2024 08:01-0500 Systolic blood pressure 150 mm[Hg] Remington Sung MD Work Phone: [facility] 04-16-2024 10:05-0500 Body height 158 cm Ibrahima Dhaliwal DO Work Phone: [facility] 04-16-2024 10:05-0500 Body mass index (BMI) [Ratio] 34.8 kg/m2 Ibrahima Dhaliwal DO Work Phone: [facility] 04-16-2024 10:05-0500 Body temperature 98.6 [degF] Ibrahima Wadsworthi DO Work Phone: [facility] 04-16-2024 10:05-0500 Body weight 86.86 kg Ibrahima Dhaliwal DO Work Phone: [facility] 04-16-2024 10:05-0500 Diastolic blood pressure 78 mm[Hg] Ibrahima Wadsworthi DO Work Phone: [facility] 04-16-2024 10:05-0500 Heart rate 89 /min Ibrahima Wadsworthi DO Work Phone: [facility] 04-16-2024 10:05-0500 SaO2% (BldA) [Mass fraction] 95 % Ibrahima Masci DO Work Phone: [facility] 04-16-2024 10:05-0500 Systolic blood pressure 113 mm[Hg] Ibrahima Wadsworthi DO Work Phone: [facility] 03-09-2024 12:56-0500 Body mass index (BMI) [Ratio] 34.68 kg/m2 Remington Sung MD Work Phone: [facility] 03-09-2024 12:56-0500 Body weight 86.59 kg Remington Sung MD Work Phone: [facility] 03-09-2024 12:56-0500 Diastolic blood pressure 80 mm[Hg] Remington Sung MD Work Phone: [facility] 03-09-2024 12:56-0500 Heart rate 89 /min Remington Sung MD Work Phone: [facility] 03-09-2024 12:56-0500 Respiratory rate 14 /min Remington Sung MD Work Phone: [facility] 03-09-2024 12:56-0500 Systolic blood pressure 124 mm[Hg] Remington Sung MD Work Phone: [facility] 02-03-2024 13:31-0400 Body height 158 cm Azra Meeks MD Work Phone: [facility] 02-03-2024 13:31-0400 Body mass index (BMI) [Ratio] 34.88 kg/m2 Azra Meeks MD Work Phone: [facility] 02-03-2024 13:31-0400 Body temperature 97.7 [degF] Azra Meeks MD Work Phone: [facility] 02-03-2024 13:31-0400 Body weight 87.09 kg Azra Meeks MD Work Phone: [facility] 02-03-2024 13:31-0400 Diastolic blood pressure 84 mm[Hg] Azra Meeks MD Work Phone: [facility] 02-03-2024 13:31-0400 Heart rate 96 /min Azra Meeks MD Work Phone: [facility] 02-03-2024 13:31-0400 Respiratory rate 14 /min Azra Meeks MD Work Phone: [facility] 02-03-2024 13:31-0400 SaO2% (BldA) [Mass fraction] 96 % Azra Meeks MD Work Phone: [facility] 02-03-2024 13:31-0400 Systolic blood pressure 122 mm[Hg] Azra Meeks MD Work Phone: [facility] 01-29-2024 09:57-0400 Body mass index (BMI) [Ratio] 34.57 kg/m2 Effie Vaz [employer].SCR[employer]OP ENGINEER Work Phone: [facility] 01-29-2024 09:57-0400 Body weight 86.3 kg Nordland Vaz [employer]KER.SCRAP [employer]OP ENGINEER Work Phone: [facility] 01-29-2024 09:57-0400 Diastolic blood pressure 79 mm[Hg] Nordland Vaz [employer].SCRAP [employer]OP ENGINEER Work Phone: [facility] 01-29-2024 09:57-0400 Heart rate 93 /min Nordland Vaz [employer].SCRAP [employer]OP ENGINEER Work Phone: [facility] 01-29-2024 09:57-0400 SaO2% (BldA) [Mass fraction] 96 % Nordland Vaz [employer].SCRAP [employer]OP ENGINEER Work Phone: [facility] 01-29-2024 09:57-0400 Systolic blood pressure 117 mm[Hg] Nordland Vaz [employer].SCRAP [employer]OP ENGINEER Work Phone: [facility] 07-15-2023 08:33-0400 Body weight 83.92 kg Lizeth Sifuentes [employer].SCRAP [employer]OP ENGINEER Work Phone: [facility] 07-15-2023 08:33-0400 Diastolic blood pressure 74 mm[Hg] Lizeth Sifuentes [employer].SCRAP [employer]OP ENGINEER Work Phone: [facility] 07-15-2023 08:33-0400 Heart rate 82 /min Lizeth Sifuentes [employer].SCRAP [employer]OP ENGINEER Work Phone: [facility] 07-15-2023 08:33-0400 Respiratory rate 16 /min Lizeth Sifuentes [employer]KER.SCRAP DROP ENGINEER Work Phone: [facility] 07-15-2023 08:33-0400 Systolic blood pressure 128 mm[Hg] Lizeth Sifuentes [employer].SCRAP [employer]OP ENGINEER Work Phone: [facility] 01-04-2023 08:30-0400 Body height 159 cm Effie Vaz [employer]KER.SCRAP [employer]OP ENGINEER Work Phone: [facility] 01-04-2023 08:30-0400 Body temperature 98.4 [degF] Effie Vaz [employer].SCR[employer]OP ENGINEER Work Phone: [facility] 01-04-2023 08:30-0400 Body weight 83.01 kg Effie Vaz [employer].SCRAP [employer]OP ENGINEER Work Phone: [facility] 01-04-2023 08:30-0400 Diastolic blood pressure 56 mm[Hg] Effie Vaz [employer].SCRAP [employer]OP ENGINEER Work Phone: [facility] 01-04-2023 08:30-0400 Heart rate 78 /min Effie Vaz [employer].SCR[employer]OP ENGINEER Work Phone: [facility] 01-04-2023 08:30-0400 SaO2% (BldA) [Mass fraction] 97 % Effie Vaz [employer].SCRAP [employer]OP ENGINEER Work Phone: [facility] 01-04-2023 08:30-0400 Systolic blood pressure 118 mm[Hg] Effie Vaz [employer].SCRAP [employer]OP ENGINEER Work Phone: [facility] 12-26-2021 09:31-0400 Body height 158.5 cm Tiffany Ugarte PA-C Work Phone: [facility] 12-26-2021 09:31-0400 Body temperature 97.39 [degF] Tiffany Ugarte PA-C Work Phone: [facility] 12-26-2021 09:31-0400 Body weight 82.1 kg Tiffany Ugarte PA-C Work Phone: [facility] 12-26-2021 09:31-0400 Diastolic blood pressure 76 mm[Hg] Tiffany Ugarte PA-C Work Phone: [facility] 12-26-2021 09:31-0400 Heart rate 72 /min Tiffany Ugarte PA-C Work Phone: [facility] 12-26-2021 09:31-0400 Respiratory rate 18 /min Tiffany Ugarte PA-C Work Phone: [facility] 12-26-2021 09:31-0400 Systolic blood pressure 110 mm[Hg] Tiffany Ugarte PA-C Work Phone: [facility] 12-25-2021 08:57-0400 Body height 157.5 cm Azra Meeks MD Work Phone: [facility] 12-25-2021 08:57-0400 Body weight 82.1 kg Azra Meeks MD Work Phone: [facility] 12-25-2021 08:57-0400 Diastolic blood pressure 73 mm[Hg] Azra Meeks MD Work Phone: [facility] 12-25-2021 08:57-0400 Heart rate 81 /min Azra Meeks MD Work Phone: [facility] 12-25-2021 08:57-0400 SaO2% (BldA) [Mass fraction] 96 % Azra Meeks MD Work Phone: [facility] 12-25-2021 08:57-0400 Systolic blood pressure 108 mm[Hg] Azra Meeks MD Work Phone: [facility] 12-14-2021 08:27-0400 Body height 159.8 cm Effierobby Vaz [employer]KER.SCRAP [employer]OP ENGINEER Work Phone: [facility] 12-14-2021 08:27-0400 Body temperature 98.2 [degF] Effie Vaz [employer].SCRAP [employer]OP ENGINEER Work Phone: [facility] 12-14-2021 08:27-0400 Body weight 81.19 kg Effie Arringtonenter [employer]KER.SCRAP [employer]OP ENGINEER Work Phone: [facility] 12-14-2021 08:27-0400 Diastolic blood pressure 74 mm[Hg] Effierobby Vaz [employer]KER.SCRAP DROP ENGINEER Work Phone: [facility] 12-14-2021 08:27-0400 Heart rate 81 /min Effie Vaz [employer]KER.SCRAP [employer]OP ENGINEER Work Phone: [facility] 12-14-2021 08:27-0400 SaO2% (BldA) [Mass fraction] 98 % Effie Vaz [employer]KER.SCRAP [employer]OP ENGINEER Work Phone: [facility] 12-14-2021 08:27-0400 Systolic blood pressure 107 mm[Hg] Nordland Vaz [employer]KER.SCRAP [employer]OP ENGINEER Work Phone: [facility] 09-14-2021 15:23-0400 Body temperature 97.81 [degF] Myra Motley [employer]KER.SCRAP [employer]OP ENGINEER Work Phone: [facility] 09-14-2021 15:23-0400 Body weight 82.74 kg Myra Motley APRN.SCRAP DROP ENGINEER Work Phone: [facility] 09-14-2021 15:23-0400 Diastolic blood pressure 78 mm[Hg] Myra Motley [employer]KER.SCRAP [employer]OP ENGINEER Work Phone: [facility] 09-14-2021 15:23-0400 Heart rate 81 /min Myra Motley APRN.SCRAP DROP ENGINEER Work Phone: [facility] 09-14-2021 15:23-0400 Respiratory rate 18 /min Myra Motley [employer]KER.SCRAP [employer]OP ENGINEER Work Phone: [facility] 09-14-2021 15:23-0400 SaO2% (BldA) [Mass fraction] 98 % Myra Motley APRN.SCRAP DROP ENGINEER Work Phone: [facility] 09-14-2021 15:040 Systolic blood pressure 122 mm[Hg] Myra Motley APRN.SCRAP DROP ENGINEER Work Phone: [facility] Encounters Encounter Date Encounter Type Care Provider Facility Start: 11-13-2024 ambulatory [facility] Facility: [facility] Start: 11-09-2024 Encounter for other preprocedural examination [facility] Start: 11-09-2024 ambulatory [facility] Facility: [facility] Start: 10-21-2024 End: 10-21-2024 Patient encounter procedure Effie Vaz APRN.SCRAP DROP ENGINEER Work Phone: Hematology/Oncology Start: 10-21-2024 End: 10-21-2024 ambulatory Effie Vaz APRN.SCRAP DROP ENGINEER Work Phone: Hematology/Oncology Comment on above: 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, estrogen receptor positive (HCC) (Primary Dx) Start: 10-19-2024 End: 10-19-2024 Patient encounter procedure Remington Sung MD Work Phone: [facility] Breast Surgery Comment on above: 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) (Primary Dx); 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); Estrogen receptor positive status (ER+); Personal history of malignant neoplasm of breast Start: 10-19-2024 End: 10-19-2024 ambulatory REMINGTON SUNG Facility:[id number] Start: 10-06-2024 End: 10-06-2024 Patient encounter procedure Lizeth Sifuentes APRN.SCRAP DROP ENGINEER Work Phone: [facility] Comment on above: Medicare annual well ness visit, subsequent (Primary Dx); Screening for depression; Encounter for screening examination for other mental health and behavioral disorders; Age-related osteoporosis without current pathological fracture; Advance directive discussed with patient; Malignant neoplasm of upper-outer quadrant of left breast in female, estrogen receptor positive (HCC); Elevated blood sugar; Medication management; Encounter for lipid screening for cardiovascular disease Start: 10-06-2024 End: 10-06-2024 ambulatory GERARDO SALEH Facility:[facility] Start: 07-14-2024 End: 07-14-2024 ambulatory Effie Vaz APRN.SCRAP DROP ENGINEER Work Phone: Hematology/Oncology Comment on above: 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, estrogen receptor positive (HCC) (Primary Dx) Start: 07-14-2024 End: 07-14-2024 Patient encounter procedure Effie Vaz APRN.SCRAP DROP ENGINEER Work Phone: Hematology/Oncology Start: 07-08-2024 End: 07-08-2024 ambulatory Juan Lopez MD Work Phone: Radiation Oncology Comment on above: 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) (Primary Dx) Start: 07-08-2024 End: 07-08-2024 Telemedicine consultation with patient Juan Lopez MD Work Phone: Radiation Oncology Start: 06-22-2024 End: 07-10-2024 Telephone encounter Ibrahima Dhaliwal DO Work Phone: Hematology/Oncology Comment on above: Results Start: 06-22-2024 End: 06-22-2024 Patient encounter procedure Remington Sung MD Work Phone: [facility] Breast Surgery Comment on above: 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) (Primary Dx); 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); Estrogen receptor positive status (ER+); Personal history of malignant neoplasm of breast Start: 06-22-2024 End: 06-22-2024 ambulatory REMINGTON SUNG Facility:[id number] Start: 06-18-2024 End: 06-18-2024 ambulatory GERARDO SALEH Facility:[facility] Start: 06-18-2024 End: 06-18-2024 Subsequent hospital visit by physician Bone D[facility] Work Phone: Radiology Comment on above: History of vitamin D deficiency [Z86.39] Start: 06-12-2024 End: 06-20-2024 Patient encounter procedure Juan Lopez MD Work Phone: Radiation Oncology Start: 06-12-2024 End: 06-20-2024 Radiation Oncology Note Juan Lopez MD Work Phone: Radiation Oncology Comment on above: Completion Note Start: 06-12-2024 End: 06-12-2024 ambulatory Juan Lopez MD Work Phone: Radiation Oncology Comment on above: Patient Education Start: 06-11-2024 End: 06-11-2024 ambulatory GERARDO SALEH Facility:[facility] Start: 06-10-2024 End: 06-10-2024 ambulatory GERARDO SALEH Facility:[facility] Start: 06-09-2024 End: 06-09-2024 Patient encounter procedure Juan Lopez MD Work Phone: Radiation Oncology Comment on above: 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) (Primary Dx) Start: 06-09-2024 End: 06-09-2024 ambulatory GERARDO SALEH Facility:[facility] Start: 06-08-2024 End: 06-08-2024 ambulatory GERARDO SALEH Facility:[facility] Start: 06-05-2024 End: 06-05-2024 ambulatory GERARDO SALEH Facility:[facility] Start: 06-04-2024 End: 06-04-2024 ambulatory GERARDO SALEH Facility:[facility] Start: 06-03-2024 End: 06-03-2024 ambulatory GERARDO SALEH Facility:[facility] Start: 06-02-2024 End: 06-02-2024 Patient encounter procedure Juan Lopez MD Work Phone: Radiation Oncology Comment on above: 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) (Primary Dx) Start: 06-02-2024 End: 06-02-2024 ambulatory GERARDO SALEH Facility:[facility] Start: 06-01-2024 End: 06-01-2024 ambulatory GERARDO SALEH Facility:[facility] Start: 05-29-2024 End: 05-29-2024 [facility] Facility:[facility] Start: 05-28-2024 End: 05-28-2024 [facility] Facility:[facility] Start: 05-27-2024 End: 05-27-2024 [facility] Facility:[facility] Start: 05-26-2024 End: 05-26-2024 Patient encounter procedure Juan Lopez MD Work Phone: Radiation Oncology Comment on above: 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) (Primary Dx) Start: 05-26-2024 End: 05-26-2024 [facility] Facility:[facility] Start: 05-25-2024 End: 05-25-2024 [facility] Facility:[facility] Start: 05-20-2024 End: 05-22-2024 Patient encounter procedure Juan Lopez MD Work Phone: Radiation Oncology Start: 05-20-2024 End: 05-22-2024 Radiation Oncology Note Juan Lopez MD Work Phone: Radiation Oncology Comment on above: Treatment Planning Simulation Note Start: 05-20-2024 End: 05-20-2024 [facility] Facility:[facility] Start: 05-20-2024 End: 05-20-2024 Nursing evaluation of [facility] and [facility] Work Phone: Radiation Oncology Comment on above: 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) (Primary Dx) Start: 05-18-2024 End: 06-11-2024 Orders Only Juan Lopez MD Work Phone: Radiation Oncology Comment on above: 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) (Primary Dx) Start: 05-14-2024 End: 05-14-2024 [facility] Facility:[facility] Start: 05-14-2024 End: 05-14-2024 Patient encounter procedure Ibrahima Dhaliwal DO Work Phone: Hematology/Oncology Start: 05-14-2024 End: 05-14-2024 Telephone encounter Ibrahima Dhaliwal DO Work Phone: Hematology/Oncology Comment on above: Orders 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, estrogen receptor positive (HCC) (Primary Dx); History of vitamin D deficiency; Disorder of bone, unspecified Start: 05-07-2024 End: 05-07-2024 Telephone encounter Ibrahima Dhaliwal DO Work Phone: Hematology/Oncology Comment on above: Results Start: 05-07-2024 End: 05-07-2024 ambulatory GERARDO SALEH Facility:[facility] Start: 05-07-2024 End: 05-07-2024 Patient encounter procedure Juan Lopez MD Work Phone: Radiation Oncology Comment on above: 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) (Primary Dx) Start: 05-05-2024 End: 05-05-2024 Orders Only Giana Velasco RN [facility] Comment on above: Encounter for consul tation (Primary Dx) Start: 04-30-2024 End: 04-30-2024 Patient encounter procedure Remington Sung MD Work Phone: [facility] Comment on above: 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) (Primary Dx); Estrogen receptor positive status (ER+); Personal history of malignant neoplasm of breast; 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) Start: 04-30-2024 End: 04-30-2024 ambulatory REMINGTON SUNG Facility:[id number] Start: 04-16-2024 End: 04-16-2024 ambulatory Ibrahima Dhaliwal DO Work Phone: Hematology/Oncology Comment on above: 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, estrogen receptor positive (HCC) (Primary Dx) Start: 04-16-2024 End: 04-16-2024 Patient encounter procedure Ibrahima Dhaliwal DO Work Phone: Hematology/Oncology Start: 04-15-2024 End: 04-15-2024 Chart abstracting Edwin Motley MA [facility] Comment on above: Consult (Outside fac ility - genetics /) Start: 04-10-2024 End: 04-10-2024 ambulatory MARY BETH CHEN [facility] Start: 04-02-2024 End: 04-02-2024 Telephone encounter Giana Velasco RN [facility] Start: 04-01-2024 ambulatory REMINGTON Medina acility:[id number] Start: 04-01-2024 End: 04-01-2024 Subsequent hospital visit by physician [facility] Comment on above: Malignant neoplasm o f upper-outer 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, unspecified estrogen receptor status (HCC) [C50.411] Malignant neoplasm o f upper-outer 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 [C50.411] Start: 04-01-2024 End: 04-01-2024 ambulatory REMINGTON SUNG Facility:[id number] Start: 03-30-2024 Patient encounter status [address] Work Phone: Start: 03-23-2024 End: 03-23-2024 Nursing evaluation of patient and report Nurse Breast Surg [facility] Comment on above: 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) (Primary Dx) Start: 03-23-2024 End: 03-23-2024 ambulatory GERARDO SALEH Facility:[id number] Start: 03-19-2024 End: 03-19-2024 Chart abstracting Gerardo Saleh MD Work Phone: [facility] Comment on above: EKG Start: 03-19-2024 End: 04-07-2024 Telephone encounter Ibrahima Dhaliwal DO Work Phone: Hematology/Oncology Comment on above: Follow Up Start: 03-19-2024 End: 03-19-2024 Subsequent hospital visit by physician Breanne Ocampo MD Work Phone: [facility] Comment on above: Malignant neoplasm o f upper-outer 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, unspecified estrogen receptor status; Estrogen receptor positive; Personal history of malignant neoplasm of breast Start: 03-19-2024 End: 03-19-2024 ambulatory BREANNE OCAMPO [facility] Start: 03-19-2024 End: 03-19-2024 ambulatory REMINGTON SUNG [facility] Start: 03-18-2024 End: 03-18-2024 Telephone encounter Loly Mckeon LPN [facility] Start: 03-17-2024 End: 03-17-2024 ambulatory REMINGTON SUNG Facility:[id number] Start: 03-17-2024 Evaluation and manag ement of inpatient REMINGTON SUNG Facility:[id number] Start: 03-17-2024 End: 03-17-2024 Subsequent hospital visit by physician Ekg/Natali Thompson Work Phone: [facility] Cardiology Comment on above: 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) [C50.411] Start: 03-15-2024 End: 03-16-2024 Telephone encounter Ibrahima Dhaliwal DO Work Phone: Hematology/Oncology Comment on above: Follow Up Start: 03-10-2024 End: 03-10-2024 Telephone encounter Loly Mckeon LPN [facility] Start: 03-09-2024 End: 03-09-2024 Patient encounter procedure [facility] Department Comment on above: 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) (Primary Dx); Estrogen receptor positive status (ER+); Personal history of malignant neoplasm of breast; 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) Start: 03-09-2024 End: 03-09-2024 ambulatory REMINGTON SUNG Facility:[id number] Start: 02-26-2024 End: 02-26-2024 Telephone encounter Azra Meeks MD Work Phone: General Surgery Comment on above: Results Start: 02-24-2024 ambulatory AZRA MEEKS Facili ty:[facility] Start: 02-24-2024 End: 02-24-2024 Subsequent hospital visit by physician Stereo/Ultrasound Biopsy [facility] Comment on above: History of left [address] cancer [Z85.3] Start: 02-03-2024 End: 02-03-2024 ambulatory [facility] Facility:[facility] Start: 02-03-2024 End: 02-03-2024 Patient encounter procedure Azra Meeks MD Work Phone: General Surgery Comment on above: Abnormal ultrasound of breast; History of left breast cancer Start: 01-29-2024 End: 01-29-2024 ambulatory [facility] Facility:[facility] Start: 01-29-2024 End: 01-29-2024 Follow-up encounter Effie Vaz APRN.SCRAP [employer]OP ENGINEER Work Phone: Hematology/Oncology Comment on above: Encounter for follow -up surveillance of breast cancer (Primary Dx); Personal history of breast cancer; Abnormal mammogram of right breast; Malignant neoplasm of upper-outer quadrant of left breast in female, estrogen receptor positive (HCC) Start: 01-29-2024 End: 01-29-2024 Patient encounter procedure Effie Vaz APRN.SCRAP DROP ENGINEER Work Phone: Hematology/Oncology Start: 01-29-2024 End: 01-29-2024 [facility] Facility:[facility] Start: 01-29-2024 End: 01-29-2024 [facility] Work Phone: [facility] Comment on above: Malignant neoplasm o f upper-outer quadrant of left breast in female, estrogen receptor positive (HCC) [C50.412, Z17.0] Start: 01-06-2024 End: 01-07-2024 Telephone encounter Lesvia De León MD Work Phone: Mammography Comment on above: Mammogram Result Khurram l Back (right breast diag mamm and us per ) Start: 01-03-2024 End: 01-03-2024 ambulatory [facility] Facility:[facility] Start: 01-03-2024 End: 01-03-2024 Subsequent hospital visit by physician Screen Mammo [facility] Mammogram Comment on above: Personal history of breast cancer [Z85.3] Start: 07-15-2023 End: 07-15-2023 Patient encounter procedure Lizeth Sifuentes APRN.SCRAP DROP ENGINEER Work Phone: [facility] Comment on above: Encounter for pre-op erative examination (Primary Dx); Age-related osteoporosis without current pathological fracture; Class 1 obesity due to excess calories with serious comorbidity and body mass index (BMI) of 32.0 to 32.9 in adult; Osteoarthritis of left knee, unspecified osteoarthritis type Start: 07-15-2023 End: 07-15-2023 Preprocedural examination done Lizeth Sifuentes APRN.SCRAP DROP ENGINEER Work Phone: [facility] Work Phone: Start: 07-11-2023 Chart abstracting Gerardo black MD Work Phone: [facility] Comment on above: Outside Imaging Start: 07-08-2023 Chart abstracting Gerardo black MD Work Phone: [facility] Comment on above: Outside [id number] Ordered Start: 07-08-2023 End: 07-08-2023 Non-patient / Non-visit Dr. Gerardo Saleh Work Phone: [facility] Work Phone: Start: 07-08-2023 End: 07-08-[address] Gerardo Saleh Work Phone: [facility] Work Phone: Start: 07-08-2023 End: 07-08-[address] Gerardo Saleh Work Phone: [facility]-Cat Scan, [facility] Work Phone: Start: 05-20-2023 Patient encounter procedure LIZETH SIFUENTES [facility] Work Phone: Start: 04-18-2023 End: 04-18-2023 ambulatory [facility] Work Phone: Start: 04-18-2023 End: 04-18-2023 Discharged Recurring [facility]-Physical Therapy Work Phone: Start: 03-18-2023 ambulatory Gerardo healy MD Work Phone: [facility] Comment on above: Wellness check Start: 01-04-2023 End: 01-04-2023 ambulatory Effie Vaz BROOCH AND BRACELET MAKER.SCRAP DROP ENGINEER Work Phone: Hematology/Oncology Comment on above: Personal history of breast cancer (Primary Dx); Encounter for screening mammogram for high-risk patient Start: 01-04-2023 End: 01-04-2023 Patient encounter procedure Effie Vaz BROOCH AND BRACELET MAKER.SCRAP DROP ENGINEER Work Phone: [facility] Start: 01-01-2023 Documentation procedure Mammog eliz Coordinator [facility] Start: 01-01-2023 Letter encounter Mammography Coordinator [facility] Department Start: 10-22-2022 Telephone encounter Effie edwards APRN.SCRAP DROP ENGINEER Work Phone: Hematology/Oncology Comment on above: Orders Start: 10-10-2022 ambulatory Jayleen Abdul MA vigate [facility] [place] Comment on above: Population Health Na vigation Outreach (ACShayy [place] PCSA) Start: 01-08-2022 ambulatory Giana stewart MD [facility] Start: 01-08-2022 Patient encounter procedure Giana Lima MD Work Phone: LIBRARY CIRCULATION CLERK [facility] Comment on above: Appointment Start: 01-02-2022 Telephone encounter Azra Cardenas MD Work Phone: General Surgery Comment on above: Results Start: 12-28-2021 End: 12-28-2021 Subsequent hospital visit by physician Diagnostic Mammo [facility] Mammogram Comment on above: Abnormal ultrasound of breast [R92.8] Start: 12-28-2021 End: 12-28-2021 Patient encounter procedure Azra Meeks MD Work Phone: General Surgery Comment on above: Abnormal ultrasound of breast (Primary Dx) Start: 12-27-2021 Telephone encounter Tiffany fajardo PA-C Work Phone: [facility] Comment on above: Results Start: 12-26-2021 End: 12-26-2021 Patient encounter procedure Tiffany Ugarte PA-C Work Phone: [facility] Comment on above: Medicare annual well ness visit, subsequent (Primary Dx); Advance directive discussed with patient; Elevated blood sugar; Malignant neoplasm of upper-outer quadrant of left breast in female, estrogen receptor positive (HCC); Osteopenia, senile; Mixed incontinence; Class 1 obesity due to excess calories with serious comorbidity and body mass index (BMI) of 32.0 to 32.9 in adult; Encounter for lipid screening for cardiovascular disease; GERD without esophagitis; Chronic constipation; Impacted cerumen of right ear Start: 12-25-2021 End: 12-25-2021 Patient encounter procedure Azra Meeks MD Work Phone: General Surgery Comment on above: Abnormal ultrasound of breast (Primary Dx); History of left breast cancer Start: 12-20-2021 End: 12-20-2021 Subsequent hospital visit by physician Us [facility] Mob 1 Work Phone: Radiology Start: 12-14-2021 End: 12-14-2021 ambulatory Effie Vaz APRN.SCRAP DROP ENGINEER Work Phone: Hematology/Oncology Comment on above: Malignant neoplasm o f upper-outer quadrant of left breast in female, estrogen receptor positive (HCC) (Primary Dx) Start: 12-14-2021 End: 12-14-2021 Patient encounter procedure Effie Vaz APRN.SCRAP DROP ENGINEER Work Phone: [facility] [place] Start: 12-11-2021 End: 12-11-2021 Subsequent hospital visit by physician [facility] Comment on above: Malignant neoplasm o f upper-outer quadrant of left breast in female, estrogen receptor positive (HCC) [C50.412, Z17.0] Start: 11-20-2021 ambulatory Gerardo healy MD Work Phone: [facility] [place] Comment on above: Covid booster Start: 09-14-2021 End: 09-14-2021 Patient encounter procedure Myra Motley APRN.SCRAP DROP ENGINEER Work Phone: [facility] Comment on above: Foreign body of righ t hand, initial encounter (Primary Dx) Start: 09-02-2020 Patient encounter procedure Myra Guicho LANE.SCRAP DROP ENGINEER Work Phone: [facility] Work Phone: Procedures Date Procedure Procedure Detail Performing Clinician Start: 10-06-2024 Adult depression scr eening assessment Lizeth Sifuentes APRN.SCRAP DROP ENGINEER Work Phone: Start: 10-06-2024 Lipid 1996 panel - S lanette or Plasma Lizeth Sifuentes APRN.SCRAP DROP ENGINEER Work Phone: Start: 04-01-2024 Radiological examina tion surgical specimen Remington Sung MD Work Phone: Start: 04-01-2024 Diagnostic mammograp hy computer-aided detcj uni Remington Sung MD Work Phone: Start: 04-01-2024 Perq breast loc ksenia ce placemt 1st lesio us imag Remington Sung MD Work Phone: Start: 03-17-2024 Ecg routine ecg w/le ast 12 lds trcg only w/o i&r [facility] Provider Start: 03-17-2024 Us lmtd joint/oth no nvasc xtr strux r-t w/img Remington Sung MD Work Phone: Start: 02-24-2024 Digital breast tomosynthesis unilateral Azra Meeks MD Work Phone: Start: 02-24-2024 Bx breast w/device 1 st lesion ultrasound guid Azra Meeks MD Work Phone: Start: 01-29-2024 Us breast uni real t mikala with image limited Effie Vaz APRN.SCRAP DROP ENGINEER Work Phone: Start: 01-29-2024 Digital breast tomosynthesis unilateral Effie Vaz APRN.SCRAP DROP ENGINEER Work Phone: Start: 07-08-2023 MRI of lower extremity Dr. Gerardo Saleh Work Phone: Start: 05-15-2023 Lipid 1996 panel - S lanette or Plasma Gerardo Saleh MD Work Phone: Start: 01-01-2023 Mammography Mammograph y Coordinator Start: 12-28-2021 US BREAST BIOPSY LEF T (POC) SURG USE ONLY Azra Meeks MD Work Phone: Start: 12-26-2021 Adult depression scr eening assessment Tiffany Ugarte PA-C Work Phone: Start: 12-26-2021 Lipid 1996 panel - S lanette or Plasma Gerardo Saleh MD Work Phone: Start: 12-11-2021 [facility] SCREENING W LOIDA Da claire Vaz BROOCH AND BRACELET MAKER.SCRAP DROP ENGINEER Work Phone: Start: 12-11-2021 Mammography Screen Wst r Start: 03-24-2021 Antibody screen Comment on above: Performed By: #### T SCR30 #### [facility] [address] [facility] [phone] Start: 12-19-2020 Colonoscopy Myra Motley APRN.SCRAP DROP ENGINEER Work Phone: Start: 12-10-2020 Adult depression scr eening assessment Myra Motley BROOCH AND BRACELET MAKER.SCRAP DROP ENGINEER Work Phone: Start: 12-08-2020 Mammography Myra Motley BROOCH AND BRACELET MAKER.SCRAP DROP ENGINEER Work Phone: Plan of Treatment Date Care Activity Detail Author Start: 12-19-2030 Colonoscopy COLONOSCOPY [facility] Start: 12-19-2030 COLORECTAL CANCER SCREENING COLORECTAL CANCER SCREENING [facility] Start: 12-19-2030 Screening for malign ant neoplasm of colon [facility] Start: 10-06-2029 Lipid panel Lipid Screening [facility] Start: 05-15-2028 Lipid panel Lipid Screening [facility] Start: 10-07-2027 Diabetes Screening Diabetes Screenin g [facility] Start: 07-01-2027 RSV Vaccine (1 - 1-d ose 75+ series) RSV Vaccine (1 - 1-dose 75+ series) [facility] Start: 03-17-2027 Diabetes Screening Diabetes Screenin g [facility] Start: 12-26-2026 Lipid 1996 panel - Serum or Plasma Lipid Screening [facility] Start: 12-26-2026 LIPID SCREEN LIPID SCREEN [facility] Start: 07-16-2026 Urine microalbumin profile [facility] Start: 06-18-2026 Screening for osteoporosis Bone Density Screening [facility] Start: 05-15-2026 Diabetes Screening Diabetes Screenin g [facility] Start: 10-06-2025 Anxiety Screening Anxiety Screening [facility] Start: 10-06-2025 Depression Screening Depression Scre ening [facility] Start: 10-06-2025 Medicare Annual Wellness Visit Medicare Annual Wellness Visit [facility] Start: 09-02-2025 LIPID SCREEN LIPID SCREEN [facility] Start: 04-19-2025 End: 04-19-2025 Patient encounter procedure 04/19/2025 9:30 AM EST Office Visit [facility] Breast Surgery [address] [address] Remington Sung MD [address] [place] [address] 6 month follow up [facility] Breast Surgery Comment on above: 6 month follow up Start: 02-18-2025 End: 02-18-2025 ambulatory 02/18/2025 9:00 AM EDT Visit (SP) Office Hematology/Oncology [address] [place] [address] Effie Vaz APRN.SCRAP DROP ENGINEER [address] [place] [address] 4 MO OV Hematology/Oncology Comment on above: 4 MO OV Start: 01-05-2025 End: 01-05-2025 Patient encounter procedure 01/05/2025 9:00 AM EDT Appointment Mammogram [address] [place] [address] david diag mammo Mammogram Comment on above: david diag mammo Start: 01-03-2025 End: 11-13-2025 MG Breast - bilateral Diagnostic [facility] Radiology Routine 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) 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) Estrogen receptor positive status (ER+) Personal history of malignant neoplasm of breast Expected: 01/03/2025, Expires: 11/13/2025 [facility] Work Phone: Comment on above: Expected: 01/03/2025 , Expires: 11/13/2025 Start: 01-02-2025 Screening for malign ant neoplasm of breast Mammogram Screening [facility] Start: 12-26-2024 DIABETES SCREEN DIABETES SCREEN [facility] Start: 12-26-2024 Diabetes Screening Diabetes Screenin g [facility] Start: 10-21-2024 End: 10-21-2024 ambulatory 10/21/2024 9:00 AM EDT Visit (SP) Office Hematology/Oncology [address] [place] [phone] Effie Vaz APRN.SCRAP DROP ENGINEER [address] [place] [address] 3 MO OV Hematology/Oncology Comment on above: 3 MO OV Start: 10-19-2024 End: 10-19-2024 Patient encounter procedure 10/19/2024 9:00 AM EDT Office Visit [facility] Breast Surgery [address] [place] [phone] Remington Sung MD [address] [place] [address] 4 moth follow up [facility] Breast Surgery Comment on above: 4 moth follow up Start: 10-06-2024 End: 01-05-2025 Hemoglobin A1c in Blood [facility] Work Phone: Comment on above: Expected: 10/06/2024 , Expires: 01/05/2025 Start: 07-14-2024 End: 07-14-2024 ambulatory Hematology/Oncology Comment on above: SCP 2MO OV* SCP * Start: 07-07-2024 End: 07-07-2024 Telephone follow-up 07/07/2024 10:00 AM EDT [facility] Radiation Oncology [address] [place] [phone] Juan Lopez MD [address] [place] [address] phone follow up Radiation Oncology Comment on above: phone follow up Start: 06-22-2024 End: 06-22-2024 Patient encounter procedure 06/22/2024 10:00 AM EST Office Visit [facility] Breast Surgery [address] [place] [phone] [place] [address] [place] [address] [place] [address] 1 month follow up [facility] Breast Surgery Comment on above: 1 month follow up Start: 06-18-2024 End: 06-18-2024 Patient encounter procedure 06/18/2024 2:15 PM EST Appointment Radiology [address] [place] [phone] [facility] [place] Radiology Comment on above: [facility] Start: 06-15-2024 End: 06-15-2024 Patient encounter procedure 06/15/2024 8:30 AM EST Office Visit [facility] Breast Surgery [address] [place] [phone] [place] [address] [place] [address] [place] [address] 1 month follow up [facility] Breast Surgery Comment on above: 1 month follow up Start: 06-12-2024 End: 06-12-2024 Patient encounter procedure 06/12/2024 9:30 AM EST Appointment Radiation Oncology [address] [place] [address] Location: [email or web address] Comment on above: Location: [facility] Start: 06-11-2024 End: 06-11-2024 Patient encounter procedure 06/11/2024 9:30 AM EST Appointment Radiation Oncology [address] [place] [id number] Location: [facility] Comment on above: Location: [facility] Start: 06-10-2024 End: 06-10-2024 Patient encounter procedure 06/10/2024 9:30 AM EST Appointment Radiation Oncology [address] [place] [address] Location: [facility] Comment on above: Location: [facility] Start: 06-09-2024 End: 06-09-2024 Patient encounter procedure Radiation Oncology Comment on above: Location: [facility] Location: [facility] TREAT MENT VISIT Start: 06-08-2024 End: 06-08-2024 Patient encounter procedure 06/08/2024 9:30 AM EST Appointment Radiation Oncology [address] [place] [address] Location: [facility] Comment on above: Location: [facility] Start: 06-05-2024 End: 06-05-2024 Patient encounter procedure 06/05/2024 9:30 AM EST Appointment Radiation Oncology [address] [place] [address] Location: [facility] Comment on above: Location: [facility] Start: 06-04-2024 End: 06-04-2024 Patient encounter procedure 06/04/2024 9:30 AM EST Appointment Radiation Oncology [address] [place] [address] Location: [facility] Comment on above: Location: [facility] Start: 06-03-2024 End: 06-03-2024 Patient encounter procedure 06/03/2024 9:30 AM EST Appointment Radiation Oncology [address] [place] [address] Location: [facility] Comment on above: Location: [facility] Start: 06-02-2024 End: 06-02-2024 Patient encounter procedure Radiation Oncology Comment on above: Location: [facility] Location: W[facility]ON TREAT MENT VISIT Start: 06-01-2024 End: 06-01-2024 Patient encounter procedure 06/01/2024 9:30 AM EST Appointment Radiation Oncology [address] [place], [place] [address] Location: [facility] Comment on above: Location: [facility] Start: 05-29-2024 End: 05-29-2024 Patient encounter procedure 05/29/2024 9:30 AM EST Appointment Radiation Oncology [address] [place] [phone] Location: [facility] Comment on above: Location: [facility] Start: 05-28-2024 End: 05-28-2024 Patient encounter procedure 05/28/2024 9:30 AM EST Appointment Radiation Oncology [address] [place] [phone] Location: [facility] On[facility] Comment on above: Location: [facility] Start: 05-27-2024 End: 05-27-2024 Patient encounter procedure 05/27/2024 9:30 AM EST Appointment Radiation Oncology [address] [place] [id number] Location: [facility] On[facility] Comment on above: Location: [facility] Start: 05-26-2024 End: 05-26-2024 Patient encounter procedure Radiation Oncology Comment on above: Location: [facility] Location: W-ON TREAT MENT VISIT Start: 05-25-2024 End: 05-25-2024 Patient encounter procedure Radiation Oncology Comment on above: Location: [facility] verify e need LT TRI ANG PIC Start: 05-20-2024 End: 05-20-2024 Nursing evaluation of patient and report 05/20/2024 1:30 PM EST Nurse Visit Radiation Oncology [address] [place], [place] [phone] Wstr, Nurse Radt [facility] [address] [place], [place] [phone] Location: W-NURSING Radiation Oncology Comment on above: Location: W-NURSING Start: 05-20-2024 End: 05-20-2024 Patient encounter procedure 05/20/2024 1:00 PM EST Appointment Radiation Oncology [address] [place], [place] [phone] Juan Lopez MD [address] [place], [place] [address] Location: [facility] Radiation Oncology Comment on above: Location: [facility] Start: 05-14-2024 End: 08-13-2024 25-hydroxyvitamin D3 [Mass/volume] in Serum or Plasma [facility] Work Phone: Comment on above: Expected: 05/14/2024 , Expires: 08/13/2024 Start: 05-14-2024 End: 05-14-2024 ambulatory Hematology/Oncology Comment on above: 6-8 WEEK OV/SURG 04/01* 6-8 WEEK OV/SURG 04/01* 05/01 - keep appt for nowJovan duncan per Dr. Masood HOLT Start: 05-07-2024 End: 05-07-2024 Patient encounter procedure 05/07/2024 10:30 AM EST Office Visit Radiation Oncology [address] [place], [place] [phone] Juan Lopez MD [address] [place] [phone] NEW PT Radiation Oncology Comment on above: NEW PT Start: 05-04-2024 End: 05-04-2024 Patient encounter procedure 05/04/2024 9:30 AM EST Office Visit Radiation Oncology [address] [place], [place] [phone] Juan Lopez MD [address] [place] [address] NEW PT Radiation Oncology Comment on above: NEW PT Start: 04-30-2024 End: 04-30-2024 Patient encounter procedure 04/30/2024 8:00 AM EST Office Visit [facility] Breast Surgery [address] [address] Remington Sung MD [address] [place] [address] p/o lumpectomy 04/01 [facility] Breast Surgery Comment on above: p/o lumpectomy 04/01 Start: 04-29-2024 Advance Directive Discussion Advance Directive Discussion [facility] Start: 04-16-2024 End: 04-16-2024 ambulatory 04/16/2024 12:10 PM EST Visit (SP) Office Hematology/Oncology [address] [place], [place] [phone] Ibrahima Dhaliwal DO [address] [place] [address] OV* Hematology/Oncology Comment on above: OV* Start: 04-16-2024 End: 04-16-2024 ambulatory Hematology/Oncology Comment on above: [facility]/NEW DIAGNOSIS/THI S TIME PER PM* ESTABLISHED PT /NEW DIAGNOSIS/THIS TIME PER PM* Start: 04-10-2024 End: 04-10-2024 Professional / ancillary services management 04/10/2024 10:30 AM EST Telehealth Ancillary [facility] Juan M Orlando [place], [place] [phone] Mary Beth Chen [place], [place] [phone] FOLLOW UP [facility] [place] Comment on above: FOLLOW UP Start: 04-01-2024 End: 04-01-2024 Admission to same day surgery center 04/01/2024 11:25 AM EST - 04/01/2024 1:20 PM EST Surgery [facility] Surgery [address] [place] [address] [place] [address] Remington Sung MD [address] [place] [address] [place] [address] LUMPECTOMY BREAST [facility] Surgery Comment on above: LUMPECTOMY BREAST Start: 04-01-2024 End: 04-01-2024 Mastectomy partial LUMPECTOMY BREAST Malignant neoplasm of upper-outer 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, unspecified estrogen receptor status (HCC) 04/01/2024 11:25 AM EST MR OR Start: 04-01-2024 End: 04-01-2024 Perq breast loc device placemt 1st lesio us imag PLACEMENT OF BREAST LOCALIZATION DEVICE(S) PERCUTANEOUS; FIRST LESION, ULTRASOUND GUIDANCE Malignant neoplasm of upper-outer 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, unspecified estrogen receptor status (HCC) 04/01/2024 11:25 AM EST MR OR Start: 04-01-2024 Subsequent hospital visit by physician 04/01/2024 11:25 AM EST Hospital Encounter [facility] Surgery [facility] [place] [address] Remington Sung MD [address] [place] [address] Malignant neoplasm of upper-outer 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, unspecified estrogen receptor status (HCC) [C50.411] [facility] Surgery Comment on above: Malignant neoplasm o f upper-outer 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, unspecified estrogen receptor status (HCC) [C50.411] Start: 04-01-2024 End: 04-01-2024 Patient encounter procedure [facility] Comment on above: Malignant neoplasm o f upper-outer 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, unspecified estrogen receptor status (HCC) [C50.411]Dr. Sung. Rt breast needle localization Start: 03-24-2024 DIABETES SCREEN DIABETES SCREEN [facility] Start: 03-23-2024 End: 03-23-2024 Nursing evaluation of patient and report 03/23/2024 11:00 AM EST Nurse Visit [facility] Breast Surgery [address] [place] [address] [place] [phone] Breast Surgery education with Giana [facility] Breast Surgery Comment on above: Breast Surgery educa tion with Giana Start: 03-17-2024 End: 03-17-2024 Patient encounter procedure [facility] Comment on above: ultra sound axilla Start: 03-09-2024 End: 06-08-2024 CBC W Auto Differential panel - Blood COMPLETE BLOOD COUNT AND DIFFERENTIAL Lab Routine 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) Estrogen receptor positive status (ER+) Personal history of malignant neoplasm of breast 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) Expected: 03/09/2024, Expires: 06/08/2024 [facility] Comment on above: Expected: 03/09/2024 , Expires: 06/08/2024 Start: 03-09-2024 End: 06-08-2024 Comprehensive metabolic 2000 panel - Serum or Plasma COMPREHENSIVE METABOLIC PANEL Lab Routine 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) Estrogen receptor positive status (ER+) Personal history of malignant neoplasm of breast 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) Expected: 03/09/2024, Expires: 06/08/2024 [facility] Comment on above: Expected: 03/09/2024 , Expires: 06/08/2024 Start: 03-09-2024 End: 06-08-2024 Lactate dehydrogenase [Enzymatic activity/volume] in Serum or Plasma LACTATE DEHYDROGENASE Lab Routine 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) Estrogen receptor positive status (ER+) Personal history of malignant neoplasm of breast 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) Expected: 03/09/2024, Expires: 06/08/2024 [facility] Comment on above: Expected: 03/09/2024 , Expires: 06/08/2024 Start: 02-03-2024 End: 02-03-2024 Patient encounter procedure 02/03/2024 1:45 PM EDT Office Visit General Surgery [address] [place] [id number] Azra Meeks MD [address] [place] [phone] RT SIDE SOLID NODULE CONSULT General Surgery Comment on above: RT SIDE SOLID NODULE CONSULT Start: 01-29-2024 End: 01-29-2024 ambulatory 01/29/2024 11:30 AM EDT Visit (SP) Office Hematology/Oncology [address] [place] [address] Effie Vaz APRN.SCRAP DROP ENGINEER [address] [place] [address] 1 YR OV/DIAG MAMM EARLY* Hematology/Oncology Comment on above: 1 YR OV/DIAG MAMM EA RLY* Start: 01-29-2024 End: 01-29-2024 Patient encounter procedure Mammogram Comment on above: Comp- RT CB poss. as ym. right breast diag ma mm and us per Start: 01-08-2024 End: 01-08-2024 ambulatory 01/08/2024 8:30 AM EDT Visit (SP) Office Hematology/Oncology [address] [place], [place] [phone] Effie Vaz APRN.SCRAP DROP ENGINEER [address] [place], [place] [address] 1 yr ov/ ov 01/02* Hematology/Oncology Comment on above: 1 yr ov/ ov 01/02* Start: 01-02-2024 Mammography [facility] Start: 01-02-2024 Screening for malign ant neoplasm of breast Mammogram Screening [facility] [facility] Start: 12-29-2023 COVID-19 (2023-2 5 season) COVID-19 ( season) [facility] Start: 12-29-2023 Covid-19 Vaccine ( season) Covid-19 Vaccine ( season) [facility] Start: 12-29-2023 Covid-19 Vaccine ( season) Covid-19 Vaccine ( season) [facility] Start: 12-29-2023 FLU (#1) FLU (#1) [facility] Start: 12-29-2023 Influenza vaccination Influenza Vacc ine (#1) [facility] Start: 04-29-2023 Advance Directive Discussion Advance Directive Discussion [facility] Start: 04-29-2023 Depression Assessment Depression Ass essment [facility] Start: 04-26-2023 End: 07-26-2023 CBC W Auto Differential panel - Blood CBC + DIFF Lab Routine Medication management Expected: 04/26/2023, Expires: 07/26/2023 [facility] Work Phone: Comment on above: Expected: 04/26/2023 , Expires: 07/26/2023 Start: 04-26-2023 End: 07-26-2023 Comprehensive metabolic 2000 panel - Serum or Plasma COMP METABOLIC PANEL Lab Routine Elevated blood sugar Medication management Expected: 04/26/2023, Expires: 07/26/2023 [facility] Work Phone: Comment on above: Expected: 04/26/2023 , Expires: 07/26/2023 Start: 04-26-2023 End: 07-26-2023 Hemoglobin A1c in Blood HGB A1C Lab Routine Elevated blood sugar Expected: 04/26/2023, Expires: 07/26/2023 [facility] Work Phone: Comment on above: Expected: 04/26/2023 , Expires: 07/26/2023 Start: 04-26-2023 End: 07-26-2023 LIPID PANEL, NONFASTING LIPID PANEL, NONFASTING Lab Routine Encounter for lipid screening for cardiovascular disease Expected: 04/26/2023, Expires: 07/26/2023 [facility] Work Phone: Comment on above: Expected: 04/26/2023 , Expires: 07/26/2023 Start: 12-28-2022 Covid-19 Vaccine ( season) Covid-19 Vaccine () [facility] Start: 12-28-2022 Influenza vaccination C [facility] Start: 12-26-2022 Adult depression screening assessment DEPRESSION SCREENING [facility] Start: 12-11-2022 Mammography MAMMOGRAM [facility] Start: 06-22-2022 Screening for osteoporosis Bone Density Screening [facility] Start: 05-30-2022 End: 02-01-2023 Diagnostic mammography computer-aided detcj uni [facility] Radiology Routine Abnormal mammogram Expected: 05/30/2022, Expires: 02/01/2023 [facility] Work Phone: Comment on above: Expected: 05/30/2022 , Expires: 02/01/2023 Start: 05-30-2022 End: 02-01-2023 Us breast uni real time with image limited US BREAST LTD LT Radiology Routine Abnormal mammogram Expected: 05/30/2022, Expires: 02/01/2023 [facility] Work Phone: Comment on above: Expected: 05/30/2022 , Expires: 02/01/2023 Start: 04-29-2022 ADVANCE DIRECTIVE DISCUSSION ADVANCE DIRECTIVE DISCUSSION [facility] Start: 04-29-2022 DEPRESSION ASSESSMENT DEPRESSION ASS ESSMENT [facility] Start: 12-28-2021 Influenza vaccination INFLUENZA (#1) [facility] Start: 12-26-2021 End: 02-25-2022 Comprehensive metabolic 2000 panel - Serum or Plasma [facility] Work Phone: Comment on above: Expected: 12/26/2021 , Expires: 02/25/2022 Start: 12-26-2021 End: 02-25-2022 Hemoglobin A1c in Blood [facility] Work Phone: Comment on above: Expected: 12/26/2021 , Expires: 02/25/2022 Start: 12-26-2021 End: 02-25-2022 LIPID PANEL, NONFASTING [facility] Work Phone: Comment on above: Expected: 12/26/2021 , Expires: 02/25/2022 Start: 12-26-2021 End: 02-25-2022 Thyrotropin [Units/volume] in Serum or Plasma [facility] Work Phone: Comment on above: Expected: 12/26/2021 , Expires: 02/25/2022 Start: 12-26-2021 End: 02-25-2022 Urinalysis complete panel - Urine URINALYSIS, WITH MICROSCOPIC Lab Routine Elevated blood sugar Encounter for lipid screening for cardiovascular disease Expected: 12/26/2021, Expires: 02/25/2022 [facility] Work Phone: Comment on above: Expected: 12/26/2021 , Expires: 02/25/2022 Start: 12-10-2021 Adult depression screening assessment DEPRESSION SCREENING [facility] Start: 12-08-2021 Mammography MAMMOGRAM [facility] Start: 07-02-2021 COVID-19 VACCINE (3 - Booster for Joce series) COVID-19 VACCINE (3 - Booster for Joce series) [facility] Start: 04-29-2021 ADVANCE DIRECTIVE DISCUSSION ADVANCE DIRECTIVE DISCUSSION [facility] Start: 04-29-2021 COVID-19 VACCINE (3 - Booster for Joce series) COVID-19 VACCINE (3 - Booster for Joce series) [facility] Start: 05-13-2015 SHINGRIX VACCINE (2 of 3) SHINGRIX VACCINE (2 of 3) [facility] Start: 2012 RSV Vaccine (1 - 1-d ose 60+ series) RSV Vaccine (1 - 1-dose 60+ series) [facility] Start: 2012 RSV Vaccine (1 - Ris k 60-74 years 1-dose series) RSV Vaccine (1 - Risk 60-74 years 1-dose series) [facility] Start: 1997 COLOGUARD (FIT-DNA) COLOGUARD (FIT-D NA) [facility] Start: [address] COLONOGRAPHY [facility] Start: 1997 FECAL OCCULT BLOOD FECAL OCCULT BLOO D [facility] Start: 1997 Screening for malign ant neoplasm of colon [facility] Start: 1997 SIGMOIDOSCOPY SIGMOIDOSCOPY [facility] Start: 1973 Microscopic observat ion [Identifier] in Cervix by Cyto stain Pap Smear [facility] Start: 1970 Anxiety Screening Anxiety Screening [facility] Start: 1970 Depression Screening Depression Scre ening [facility] Start: 1968 MenB (1 of 2 - MenB 2-Dose Series Bexsero) MenB (1 of 2 - MenB 2-Dose Series Bexsero) [facility] Start: 1965 Varicella (1 of 2 - 13+ 2-dose series) Varicella (1 of 2 - 13+ 2-dose series) [facility] Start: 07-01-1959 Tetanus Diphtheria a nd Pertussis Vaccines (1 - Tdap) Tetanus Diphtheria and Pertussis Vaccines (1 - Tdap) [facility] Start: 1953 MMR (1 of 1 - Standa rd series) MMR (1 of 1 - Standard series) [facility] End: 06-13-2025 BD DXA TRABECULAR BONE SCORE (TBS) BD DXA TRABECULAR BONE SCORE (TBS) Radiology Routine History of vitamin D deficiency Disorder of bone, unspecified 1 Occurrences starting 05/14/2024 until 06/13/2025 [facility] Comment on above: 1 Occurrences starti ng 05/14/2024 until 06/13/2025 BD DXA TRABECULAR ISAIAS NE SCORE (TBS) BD DXA TRABECULAR BONE SCORE (TBS) Radiology Routine History of vitamin D deficiency Disorder of bone, unspecified 06/18/2024 2:35 PM EST [facility] CT Guidance for radiation treatment of Unspecified body region CT SIM PLANNING RADIATION ONCOLOGY Radiology Routine 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) Ordered: 06/11/2024 [facility] Work Phone: Comment on above: Ordered: 06/11/2024 DBT Breast - bilater al screening [facility] S[facility] W [facility] Radiology Routine Personal history of breast cancer Encounter for screening mammogram for high-risk patient 01/03/2024 8:32 AM EDT [facility] Work Phone: End: 12-28-2021 Diagnostic mammography computer-aided detcj [facility] Work Phone: Comment on above: 1 Occurrences starti ng 12/28/2021 until 12/28/2021 End: 01-27-2023 Diagnostic mammography computer-aided detcj [facility] DIAGNOSTIC LT Radiology Routine Abnormal ultrasound of breast 1 Occurrences starting 12/28/2021 until 01/27/2023 [facility] Work Phone: Comment on above: 1 Occurrences starti ng 12/28/2021 until 01/27/2023 End: 06-13-2025 DXA Skeletal system.axial Views for bone density DXA-AXIAL SKELETON Radiology Routine History of vitamin D deficiency Disorder of bone, unspecified 1 Occurrences starting 05/14/2024 until 06/13/2025 [facility] Comment on above: 1 Occurrences starti ng 05/14/2024 until 06/13/2025 DXA Skeletal system.axial Views for bone density DXA-AXIAL SKELETON Radiology Routine History of vitamin D deficiency Disorder of bone, unspecified 06/18/2024 2:35 PM [facility] Work Phone: End: 03-09-2025 ECG COMPLETE ECG COMPLETE ECG Routine 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) Estrogen receptor positive status (ER+) Personal history of malignant neoplasm of breast 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) 1 Occurrences starting 03/09/2024 until 03/09/2025 [facility] Comment on above: 1 Occurrences starti ng 03/09/2024 until 03/09/2025 End: 03-19-2024 Genetic Sendout: CancerNext-Expanded Panel with RNA [facility] Work Phone: Comment on above: 1 Occurrences starti ng 03/19/2024 until 03/19/2024 End: 11-22-2023 [facility] SCREENING W LO[facility] Radiology Routine Malignant neoplasm of upper-outer quadrant of left breast in female, estrogen receptor positive (HCC) Encounter for screening mammogram for high-risk patient 1 Occurrences starting 10/23/2022 until 11/22/2023 [facility] Work Phone: Comment on above: 1 Occurrences starti ng 10/23/2022 until 11/22/2023 End: 02-03-2024 MAVERICK SCREENING W LO[facility]CRE[facility] W [facility] Radiology Routine Personal history of breast cancer Encounter for screening mammogram for high-risk patient 1 Occurrences starting 01/04/2023 until 02/03/2024 [facility] Work Phone: Comment on above: 1 Occurrences starti ng 01/04/2023 until 02/03/2024 End: 02-04-2025 MG Breast - right Diagnostic for implant [facility] Radiology Routine Malignant neoplasm of upper-outer quadrant of left breast in female, estrogen receptor positive (HCC) Abnormal mammogram of right breast 1 Occurrences starting 01/06/2024 until 02/04/2025 [facility] Work Phone: Comment on above: 1 Occurrences starti ng 01/06/2024 until 02/04/2025 SURGICAL PATHOLOGY SURGICAL PATH OLOGY Lab Routine Abnormal ultrasound of breast 12/28/2021 9:15 AM EDT [facility] Work Phone: End: 02-24-2024 SURGICAL PATHOLOGY SURGICAL PATHOLOGY Lab Routine ONCE for 1 Occurrences starting 02/24/2024 until 02/24/2024 [facility] Work Phone: Comment on above: ONCE for 1 Occurrenc es starting 02/24/2024 until 02/24/2024 End: 04-08-2025 US Axilla - right US AXILLA ONLY RIGHT Radiology Routine 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) Estrogen receptor positive status (ER+) Personal history of malignant neoplasm of breast 1 Occurrences starting 03/09/2024 until 04/08/2025 [facility] Work Phone: Comment on above: 1 Occurrences starti ng 03/09/2024 until 04/08/2025 End: 02-04-2025 US Breast - right limited US BREAST LTD RIGHT Radiology Routine Malignant neoplasm of upper-outer quadrant of left breast in female, estrogen receptor positive (HCC) Abnormal mammogram of right breast 1 Occurrences starting 01/06/2024 until 02/04/2025 [facility] Comment on above: 1 Occurrences starti ng 01/06/2024 until 02/04/2025 End: 03-04-2025 US Guidance for biopsy of Breast - right US BIOPSY BREAST RIGHT Radiology Routine History of left breast cancer Abnormal ultrasound of breast 1 Occurrences starting 02/03/2024 until 03/04/2025 [facility] Work Phone: Comment on above: 1 Occurrences starti ng 02/03/2024 until 03/04/2025 End: 04-08-2025 XR Chest PA and Lateral XR CHEST 2V FRONTAL/LAT Radiology Routine 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) Estrogen receptor positive status (ER+) Personal history of malignant neoplasm of breast 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) 1 Occurrences starting 03/09/2024 until 04/08/2025 [facility] Comment on above: 1 Occurrences starti ng 03/09/2024 until 04/08/2025 XR Chest PA and Lateral XR CHEST 2V FRONTAL/LAT Radiology Routine 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) Estrogen receptor positive status (ER+) Personal history of malignant neoplasm of breast 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) 03/17/2024 3:06 PM EST [facility] Work Phone: [facility] Immunizations Immunization Date Immunization Notes Care Provider Darrell garrido 02-16-2023 influenza (HD-IIV4) vaccine, age 65+ yr, high dose, quadrivalent, PF (FLUZONE HIGH-DOSE) Gerardo Saleh MD Work Phone: [facility] 02-16-2023 influenza virus vacc ine, unspecified formulation Screen Wstr [facility] 03-04-2021 COVID-19 vaccine, ag e 12+ yr ([employer] - PURPLE TOP) Myra Motley APRN.SCRAP DROP ENGINEER Work Phone: [facility] 02-17-2021 influenza (HD-IIV4) vaccine, age 65+ yr, high dose, quadrivalent, PF (FLUZONE HIGH-DOSE) Gerardo Saleh MD Work Phone: [facility] 02-17-2021 influenza, high dose seasonal, preservative-free Myra Motley APRN.SCRAP DROP ENGINEER Work Phone: [facility] 09-02-2020 pneumococcal polysaccharide vaccine, 23 valent Myra Motley APRN.SCRAP [employer]OP ENGINEER Work Phone: [facility] 07-07-2020 COVID-19 vaccine (JOCE) Myra Motley APRN.SCRAP [employer]OP ENGINEER Work Phone: [facility] Work Phone: 01-14-2020 influenza (HD-IIV4) vaccine, age 65+ yr, high dose, quadrivalent, PF (FLUZONE HIGH-DOSE) Gerardo Saleh MD Work Phone: [facility] 02-10-2019 influenza, high dose seasonal, preservative-free Myra Motley APRN.SCRAP DROP ENGINEER Work Phone: [facility] 02-19-2018 pneumococcal conjuga te vaccine, 13 valent Myra Motley APRN.SCRAP DROP ENGINEER Work Phone: [facility] 02-11-2018 influenza, high dose seasonal, preservative-free Myra Motley [employer].SCRAP DROP ENGINEER Work Phone: [facility] Work Phone: 05-10-2017 influenza, injectabl e, quadrivalent, preservative free Myra Guicho [employer]ER.SCRAP DROP ENGINEER Work Phone: [facility] Work Phone: 07-16-2016 tetanus toxoid, redu noah diphtheria toxoid, and acellular pertussis vaccine, adsorbed Myra Motley [employer].SCRAP DROP ENGINEER Work Phone: [facility] 03-18-2015 zoster vaccine, live Herminia halee Guicho [employer].SCRAP [employer]OP ENGINEER Work Phone: [facility] Payers Date Payer Category Payer Self-pay [id number] 2019 Private Health Insurance MMO MED ICARE SUPPLEMENT [id number] 2019 Unknown O MMO MEDICARE SUPPLEMENT [id number] 2019-Present [phone] [address] [place] [address] Indemnity [id number] 2019 Unknown [id number] 2019 Unknown [id number] 2017 Medicare MEDICARE MEDICAR E A AND B [id number] 2017-Present [phone] [place] [address] Medicare [id number] 2017 Medicare [id number] 2017 Medicare [id number] 1950 Unknown [id number] 1950 Unknown [id number] 1950 Unknown [id number] Unknown [id number] Unknown [id number] Social History Date Type Detail Facility Start: 01-12-2016 End: 12-26-2021 Tobacco smoking status VAIS Never smoked tobacco [facility] Work Phone: Start: 01-12-2016 End: 12-26-2021 Tobacco use and exposure Smokeless tobacco non-user [facility] Work Phone: Start: 09-14-2021 End: 10-21-2024 Alcohol intake Current drinker of alcohol (finding) [facility] Start: 08-31-2020 End: 12-21-2021 History SDOH Alcohol Frequency 2 [facility] Start: 08-31-2020 End: 12-21-2021 History SDOH Alcohol Std Drinks 1 [facility] Start: 09-15-2016 History SDOH Alcohol Comment wine = 2/month [facility] Start: 08-31-2020 End: 12-21-2021 History SDOH Social Connections Phone 5 [facility] Start: 08-31-2020 End: 12-21-2021 History SDOH Social Connections Mandaen 3 [facility] Start: 08-31-2020 Education 12 [facility] Start: 1950 Sex Assigned At Female [facility] Start: 09-04-2021 End: 12-28-2021 Exposure to SARS-CoV-2 (event) Not sure [facility] Work Phone: Start: 12-21-2021 History SDOH Physical Activity DPW 6 [facility] Start: 12-21-2021 End: 01-01-2023 History of Social function [facility] Start: 12-21-2021 End: 01-01-2023 Social connection and isolation panel [facility] Do you belong to any clubs or organizations such as bahai groups, unions, fraternal or athletic groups, or school groups? Yes [facility] Are you now , , , , never or living with a partner? [facility] How often to you hav e a drink containing alcohol? Monthly or less [facility] How many standard dr inks containing alcohol do you have on a typical day? 1 or 2 [facility] How often do you hav e 6 or more drinks on 1 occasion? Never [facility] How hard is it for y ou to pay for the very basics like food, housing, medical care, and heating Not hard at all [facility] Do you feel stress - tense, restless, nervous, or anxious, or unable to sleep at night because your mind is troubled all the time - these days [OSQ] Only a little [facility] (I/We) worried wheth er (my/our) food would run out before (I/we) got money to buy more. Never true [facility] In the past 12 month s, was there a time when you were not able to pay the mortgage or rent on time? No [facility] Start: 12-01-2019 Gender identity Identifies as female gender (finding) [facility] Start: 12-01-2019 Sexual orientation Heterosexual (finding) [facility] Start: 10-13-2020 End: 10-13-2020 Tobacco smoking status NHIS Unknown if ever smoked [facility] Are you now , , , , never or living with a partner? [facility] Do you feel stress - tense, restless, nervous, or anxious, or unable to sleep at night because your mind is troubled all the time - these days [OSQ] Not at all [facility] Start: 1950 Sex assigned at Not on file [facility] Clinical Notes 10-28-2020 to 10-21-2024 Effie Vaz APRN.SCRAP DROP ENGINEER - 10/21/2024 8:53 AM Remington Leavitt MD - 10/19/2024 1:22 PM Lizeth Willis APRN.SCRAP DROP ENGINEER - 10/06/2024 8:44 AM EDTPatient Instructions Note Date & Type Note Facility 10-21-2024 Note HNO ID: [id number] Author: EFFIE VAZ APRN.SCRAP DROP ENGINEER Service: ? Author Type: Nurse Practitioner Type: Progress Notes Filed: 10/21/2024 09:34 Note Text: Chief Complaint Patient presents with: Established Patient HPI: Love Pino is a 74 year old female who presents here today [...] nuclear grade 2. ER >90%, strong and OR 60%, weak to moderate. HER2 quantified at [...] An additional 11 lymph nodes were negative. OV 04/16/2024: Received adjuvant radiation to the left breast. That was followed with 5 years of anastrozole completed 03/2021. Recent lumpectomy and sentinel lymph node biopsy for new right sided lobular carcinoma. NGS/biomarkers/wheat combine driver mutation analyses: [facility] genetic testing negative. RADIATION:05/25/24 - 06/12/24 Right breast Current therapy:Aromasin Began after radiation. No new concerns today. Appetite:It's good. Stable. Energy level:It's good. Denies fevers or recent illness. Resp:denies cough or sob, occ. panchal with steps Cardiac:denies chest pain/palpitations GI:denies abd pain, n/v, moving bowels regularly :denies dysuria/hematuria Extrem:chronic L knee pain-followed by Ortho-Dr. Das, denies new pain Endo:+hot flashes Probably two-three times per day. Neuro:denies symptoms of neuropathy Skin:denies rashes/lesions Heme:denies bleeding The ROS is otherwise negative. Past medical history, appointments, medications, allergies reviewed. No changes. EXAM: BP 134/85 Pulse 90 Temp 36.4 ?C (97.6 ?F) (Temporal) Wt 87 kg (191 lb 12.8 oz) LMP 01/27/2003 SpO2 96% BMI 34.85 kg/m? APPEARANCE Well appearing, alert, in no acute distress, well-hydrated, well nourished. HEART RRR with normal S1 and S2, no murmurs LUNG clear to auscultation BREAST FEMALE b/l surgical scars, no mass/nodule b/l LYMPH NODES No cervical lymphadenopathy, No supraclavicular lymphadenopathy, and No axillary lymphadenopathy. ABDOMEN bowel sounds normoactive, soft, non-tender EXTREMITIES No edema NEURO Awake, alert and oriented x 3, Normal gait, and No involuntary motions. SKIN Skin color, texture, turgor normal, no suspicious rashes or lesions ASSESSMENT/PLAN: 1. Malignant neoplasm of overlapping sites of right breast in female, estrogen receptor positive (HCC) - ICD9: 174.8, V86.0, ICD10: C50.811, Z17.[address] Dhaliwal's previous note: Assessment: -New pT1c(m) pNX M0 ER/OR positive, HER2 negative invasive lobular carcinoma of the right breast. -History of a pT1 (1.9 cm; grade 2; LVI+) pN1a MX ER/OR positive HER2 negative stage IIA invasive ductal carcinoma the left breast. -Reviewed Oncotype DX. Plan up to 7 years exemestane. -Discussed bone health issues. Plan: -Scheduled to begin RT. -Rx for exemestane to start two weeks after completes radiation. -Check vit D. -DXA. -Dental clearance form provided. -Begin q 3 month Zometa in about 6 months--sooner if bone density worsened. -OV for SCP in about 2 months. - No concerning findings on exam. - Tolerating aromasin well. - Pt. would like to hold off on zometa for now. - Continue aromasin. - Mammogram ordered per surgeon-already scheduled. - Follow up with surgeon as scheduled. - After next visit plan to alt. every 6 months with surgeon. - Follow up in 4 months. - Pt. aware to call office with any questions/concerns. The patient indicates understanding of these issues and agrees with the plan. All documentation from previous visit of 07/14/24-Dr. Dhaliwal/myself was copied and pasted, documentation has been reviewed and edited as necessary for today's visit. Effie Vaz APRN.[facility] 10-21-2024 History of Presen t illness Narrative Chief Complaint Patient presents with: Established Patient HPI: Love Pino is a 74 year old female who presents here today [...] nuclear grade 2. ER >90%, strong and OR 60%, weak to moderate. HER2 quantified at [...] An additional 11 lymph nodes were negative. OV 04/16/2024: Received adjuvant radiation to the left breast. That was followed with 5 years of anastrozole completed 03/2021. Recent lumpectomy and sentinel lymph node biopsy for new right sided lobular carcinoma. NGS/biomarkers/wheat combine driver mutation analyses: [facility]. RADIATION:05/25/24 - 06/12/24 Right breast Current therapy:Aromasin Began after radiation. No new concerns today. Appetite:It's good. Stable. Energy level:It's good. Denies fevers or recent illness. Resp:denies cough or sob, occ. panchal with steps Cardiac:denies chest pain/palpitations GI:denies abd pain, n/v, moving bowels regularly :denies dysuria/hematuria Extrem:chronic L knee pain-followed by Ortho-Dr. Das, denies new pain Endo:+hot flashes Probably two-three times per day. Neuro:denies symptoms of neuropathy Skin:denies rashes/lesions Heme:denies bleeding The ROS is otherwise negative. Past medical history, appointments, medications, allergies reviewed. No changes. EXAM: BP 134/85 Pulse 90 Temp 36.4 C (97.6 F) (Temporal) Wt 87 kg (191 lb 12.8 oz) LMP 01/27/2003 SpO2 96% BMI 34.85 kg/m APPEARANCE Well appearing, alert, in no acute distress, well-hydrated, well nourished. HEART RRR with normal S1 and S2, no murmurs LUNG clear to auscultation BREAST FEMALE b/l surgical scars, no mass/nodule b/l LYMPH NODES No cervical lymphadenopathy, No supraclavicular lymphadenopathy, and No axillary lymphadenopathy. ABDOMEN bowel sounds normoactive, soft, non-tender EXTREMITIES No edema NEURO Awake, alert and oriented x 3, Normal gait, and No involuntary motions. SKIN Skin color, texture, turgor normal, no suspicious rashes or lesions ASSESSMENT/PLAN: 1. Malignant neoplasm of overlapping sites of right breast in female, estrogen receptor positive (HCC) - ICD9: 174.8, V86.0, ICD10: C50.811, Z17.[address] Dhaliwal's previous note: Assessment: -New pT1c(m) pNX M0 ER/OR positive, HER2 negative invasive lobular carcinoma of the right breast. -History of a pT1 (1.9 cm; grade 2; LVI+) pN1a MX ER/OR positive HER2 negative stage IIA invasive ductal carcinoma the left breast. -Reviewed Oncotype DX. Plan up to 7 years exemestane. -Discussed bone health issues. Plan: -Scheduled to begin RT. -Rx for exemestane to start two weeks after completes radiation. -Check vit D. -DXA. -Dental clearance form provided. -Begin q 3 month Zometa in about 6 months--sooner if bone density worsened. -OV for SCP in about 2 months. - No concerning findings on exam. - Tolerating aromasin well. - Pt. would like to hold off on zometa for now. - Continue aromasin. - Mammogram ordered per surgeon-already scheduled. - Follow up with surgeon as scheduled. - After next visit plan to alt. every 6 months with surgeon. - Follow up in 4 months. - Pt. aware to call office with any questions/concerns. The patient indicates understanding of these issues and agrees with the plan. All documentation from previous visit of 07/14/24-Dr. Dhaliwal/myself was copied and pasted, documentation has been reviewed and edited as necessary for today's visit. Effie Vaz APRN.SCRAP DROP ENGINEER documented in this encounter [facility] 10-19-2024 Note HNO ID: [id number] Author: REMINGTON SUNG MD Service: ? Author Type: Physician Type: Progress Notes Filed: 10/19/2024 13:26 Note Text: October 19, 2024 Love Pino 1950 [place]: Love is here today for her routine breast check. She is now 6 months out from a right partial mastectomy with radiation therapy. She is taking exemestane and tolerating it well. She is 9 years out from a left partial mastectomy with sentinel node biopsy, axillary node biopsy, radiation, and 5 years of Anastrozole therapy. She follows with her oncologist in [place]. She had genetic testing that was negative for actionable abnormalities. She is doing well. She has no new neurologic, pulmonary, GI, or long bone symptoms. She is doing reasonably well with her exemestane. She has a little bit of joint stiffness at times and some hot flashes but it is all tolerable. She feels nothing new or different in either breast. Her last mammogram was 01/03/2024 (preop). PAST MEDICAL HISTORY Diagnosis Date Arthritis aleve or advil prn Breast cancer of upper-outer quadrant of left female breast (HCC) 01/12/2016 Dr. Sung, lumpectomy Cystocele, midline 09/02/2020 Delayed emergence from general anesthesia Elevated blood sugar 09/02/2020 pt states high normal, not on medication, diet controlled History of colonic polyps 10/28/2020 colonoscopy- Dr. Bowden Lymphedema of left upper extremity 05/14/2016 S/p lumpectomy and node biopsy Malignant neoplasm of upper-outer quadrant of left breast in female, estrogen receptor positive (HCC) 11/06/2016 Dr. Sung Medicare annual wellness visit, subsequent 02/10/2019 Medical B eligibilty date 06/27/2017 Last done 09/02/2020 Mixed incontinence 05/12/2021 Obesity, Class I, BMI 30-34.9 04/03/2021 Osteopenia PONV (postoperative nausea and vomiting) Venous insufficiency (chronic) (peripheral) 03/09/2019 pt states left arm swelling since lymph node removal PAST SURGICAL HISTORY Procedure Laterality Date BREAST LUMPECTOMY HX Right 04/01/2024 BREAST SURGERY HX Left lumpectomy, followed by radiation and pills CARPAL TUNNEL 2014 Bilateral COLONOSCOPY 2017 repeat 5 yrs COLONOSCOPY FLX DX W/COLLJ SPEC WHEN PFRMD 12/19/2020 DILATION AND CURETTAGE DXAND/THER NONOBSTETRIC 1980 Dilation AND curettage KNEE SURGERY HX Right 08/01/2023 Total MASTECTOMY, PARTIAL Left 01/03/2016 lymph node bx(13) PAST SURGICAL HISTORY OF PAST SURGICAL HISTORY OF 03/2021 vaginal hysterectomy, ovaries remain FAMILY HISTORY Problem Relation Age of Onset Breast Cancer Mother 57 age 60 Diabetes Father Heart Father GI Father bleeding ulcers No Known Problems Sister Parkinson?s Disease Sister No Known Problems Sister No Known Problems Sister Cancer Brother age 59 Lymphoma/liver disease No Known Problems Brother No Known Problems Brother other (Thyroid or Thraot cancer) Maternal Grandmother No Known Problems Maternal Grandfather other (Heart Condition) Paternal Grandmother other (Heart Condition) Paternal Grandfather Colon Cancer Maternal Aunt Colon Cancer Maternal Uncle Social History Tobacco Use Smoking status: Never Smokeless tobacco: Never Vaping Use Vaping status: Never Used Substance Use Topics Alcohol use: Yes Comment: wine Drug use: Never Current Outpatient Medications Medication Sig Dispense Refill exemestane (AROMASIN) 25 mg tablet Take 1 tablet by mouth once daily. TAKE AFTER A MEAL. 90 tablet 3 acetaminophen (TYLENOL EXTRA STRENGTH) 500 mg tablet Take 500 mg by mouth every 8 hours as needed. guaiFENesin (MUCINEX) 600 mg 12 hr tablet Take 1,200 mg by mouth once daily. LD 03/24 naproxen sodium (ALEVE ORAL) Take 1 tablet by mouth once daily. PT STATES WILL STOP TAKING ALEVE WITH LD BEING 03/26. docusate sodium (COLACE ORAL) Take 1 tablet by mouth once daily. CALCIUM CARBONATE (TUMS ORAL) Take 1-2 tablets by mouth once daily. LD 03/24 Cholecalciferol, Vitamin D3, 50 mcg (2,000 unit) cap Take 1 capsule by mouth once daily. LD 03/24 Mybxepig-Kvqetdl-Gvqu-Lutein tab Take 1 tablet by mouth once daily. LD 03/24 No current facility-administered medications for this visit. ALLERGIES Allergen Reactions Penicillin Anaphylaxis Sulfa (Sulfonamide * Itching REVIEW OF SYSTEMS: GENERAL: No fever/chills. No unusual weight change. EYES: No blurring or diplopia. No drainage. No unusual vision loss. Wears corrective lenses. EARS: No earache. No drainage. No hearing loss. NOSE: No acute congestion or drainage. THROAT: No sore throat. No difficulty swallowing. CARDIAC: No chest pains or palpitations. No peripheral edema. PULMONARY: No cough, wheezing, shortness of breath, or hemoptysis. BREAST: See history. No new masses, redness or dimpling of the skin, or nipple discharge. GASTROINTESTINAL: No nausea or vomiting. No diarrhea. No constipation. No change in bowel habits. No abdominal pain. No bloo (more content not included)... [facility] 10-19-2024 History of Presen t illness Narrative Images from the original note were not included. October 19, 2024 Love Pino 1950 [place]: Love is here today for her routine breast check. She is now 6 months out from a right partial mastectomy with radiation therapy. She is taking exemestane and tolerating it well. She is 9 years out from a left partial mastectomy with sentinel node biopsy, axillary node biopsy, radiation, and 5 years of Anastrozole therapy. She follows with her oncologist in [place]. She had genetic testing that was negative for actionable abnormalities. She is doing well. She has no new neurologic, pulmonary, GI, or long bone symptoms. She is doing reasonably well with her exemestane. She has a little bit of joint stiffness at times and some hot flashes but it is all tolerable. She feels nothing new or different in either breast. Her last mammogram was 01/03/2024 (preop). PAST MEDICAL HISTORY Diagnosis Date Arthritis aleve or advil prn Breast cancer of upper-outer quadrant of left female breast (HCC) 01/12/2016 Dr. Sung, lumpectomy Cystocele, midline 09/02/2020 Delayed emergence from general anesthesia Elevated blood sugar 09/02/2020 pt states high normal, not on medication, diet controlled History of colonic polyps 10/28/2020 colonoscopy- Dr. Bowden Lymphedema of left upper extremity 05/14/2016 S/p lumpectomy and node biopsy Malignant neoplasm of upper-outer quadrant of left breast in female, estrogen receptor positive (HCC) 11/06/2016 Dr. Sung Medicare annual wellness visit, subsequent 02/10/2019 Medical B eligibilty date 06/27/2017 Last done 09/02/2020 Mixed incontinence 05/12/2021 Obesity, Class I, BMI 30-34.9 04/03/2021 Osteopenia PONV (postoperative nausea and vomiting) Venous insufficiency (chronic) (peripheral) 03/09/2019 pt states left arm swelling since lymph node removal PAST SURGICAL HISTORY Procedure Laterality Date BREAST LUMPECTOMY HX Right 04/01/2024 BREAST SURGERY HX Left lumpectomy, followed by radiation and pills CARPAL TUNNEL 2014 Bilateral COLONOSCOPY 2016 repeat 5 yrs COLONOSCOPY FLX DX W/COLLJ SPEC WHEN PFRMD 12/19/2020 DILATION & CURETTAGE DX&/THER NONOBSTETRIC 1980 Dilation & curettage KNEE SURGERY HX Right 08/01/2023 Total MASTECTOMY, PARTIAL Left 01/03/2016 lymph node bx(13) PAST SURGICAL HISTORY OF PAST SURGICAL HISTORY OF 03/2021 vaginal hysterectomy, ovaries remain FAMILY HISTORY Problem Relation Age of Onset Breast Cancer Mother 57 age 60 Diabetes Father Heart Father GI Father bleeding ulcers No Known Problems Sister Parkinson s Disease Sister No Known Problems Sister No Known Problems Sister Cancer Brother age 59 Lymphoma/liver disease No Known Problems Brother No Known Problems Brother other (Thyroid or Thraot cancer) Maternal Grandmother No Known Problems Maternal Grandfather other (Heart Condition) Paternal Grandmother other (Heart Condition) Paternal Grandfather Colon Cancer Maternal Aunt Colon Cancer Maternal Uncle Social History Tobacco Use Smoking status: Never Smokeless tobacco: Never Vaping Use Vaping status: Never Used Substance Use Topics Alcohol use: Yes Comment: wine </= 2/month Drug use: Never Current Outpatient Medications Medication Sig Dispense Refill exemestane (AROMASIN) 25 mg tablet Take 1 tablet by mouth once daily. TAKE AFTER A MEAL. 90 tablet 3 acetaminophen (TYLENOL EXTRA STRENGTH) 500 mg tablet Take 500 mg by mouth every 8 hours as needed. guaiFENesin (MUCINEX) 600 mg 12 hr tablet Take 1,200 mg by mouth once daily. LD 03/24 naproxen sodium (ALEVE ORAL) Take 1 tablet by mouth once daily. PT STATES WILL STOP TAKING ALEVE WITH LD BEING 03/26. docusate sodium (COLACE ORAL) Take 1 tablet by mouth once daily. CALCIUM CARBONATE (TUMS ORAL) Take 1-2 tablets by mouth once daily. LD 03/24 Cholecalciferol, Vitamin D3, 50 mcg (2,000 unit) cap Take 1 capsule by mouth once daily. LD 03/24 Xmutboxy-Bcyqhaw-Phxh-Lutein tab Take 1 tablet by mouth once daily. LD 03/24 No current facility-administered medications for this visit. ALLERGIES Allergen Reactions Penicillin Anaphylaxis Sulfa (Sulfonamide * Itching REVIEW OF SYSTEMS: GENERAL: No fever/chills. No unusual weight change. EYES: No blurring or diplopia. No drainage. No unusual vision loss. Wears corrective lenses. EARS: No earache. No drainage. No hearing loss. NOSE: No acute congestion or drainage. THROAT: No sore throat. No difficulty swallowing. CARDIAC: No chest pains or palpitations. No peripheral edema. PULMONARY: No cough, wheezing, shortness of breath, or hemoptysis. BREAST: See history. No new masses, redness or dimpling of the skin, or nipple discharge. GASTROINTESTINAL: No nausea or vomiting. No diarrhea. No constipation. No change in bowel habits. No abdominal pain. No blood in stool. No dark stool. No jaundice. GENITOURINARY: No dysuria or increased urinary frequency. No blood in the urine. No unusual vaginal bleeding. MUSCULOSKELETAL: Some joint stiffness at times with exemestane. No muscle weakness. No long bone pain. NEUROLOGIC: No transient paralysis. No weakness. No paresthesias. No seizures. No syncope. HEMATOLOGIC/LYMPHATIC: No abnormal bruising or bleeding. No enlarged nodes. PSYCH: No anxiety or depression. PHYSICAL EXAM: BP 157/84 Pulse 86 Resp 14 Wt 194 lb (88.0kg) LMP 01/27/2003 GENERAL: Alert and oriented. No acute distress. SKIN: Warm and dry. No jaundice. HEAD: Normocephalic and atraumatic. EYES: Pupils equal, round, and reactive to light. Extraocular movements intact. No scleral icterus. Wearing glasses. PHARYNX: Clear. NECK: No cervical or supraclavicular lymphadenopathy. Thyroid palpably normal. Carotids 2+ bilaterally without bruits. Supple neck. HEART: Normal sinus rhythm without gallop or murmur. LUNGS: Full and clear bilaterally with no rales, wheezes, or rhonchi. BREASTS: She has changes in both breasts from her surgery and radiation. There are no focal dominant masses palpable on either side. There is no nipple discharge. There is no axillary or supraclavicular lymphadenopathy. ABDOMEN: Soft and non tender. No distention. Normal bowel sounds. No mass or organomegaly. EXTREMITIES: No cyanosis or edema. NEUROLOGIC: Cranial nerves II-XII grossly intact. Grossly intact motor and sensory exam. IMPRESSION: (C50.411) 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) (primary encounter diagnosis) (C50.412) 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) (Z17.0) Estrogen receptor positive status (ER+) (Z85.3) Personal history of malignant neoplasm of breast PLAN: There is no evidence of active breast disease at 6 months on the right and 9 years on the left. Because she travels all the way from [place] she wonders if she could see me back in 6 months rather than 3. She does follow regularly with her oncologist locally and they do a thorough breast exam. I think it would certainly be reasonable to see her back in 6 months. She will be due for mammogram after 01/02/2025. We will arrange that. Remington Sung MD documented in this encounter [facility] 10-06-2024 Note HNO ID: [id number] Author: LIZETH SIFUENTES APRN.HANH Service: ? Author Type: Nurse Practitioner Type: Progress Notes Filed: 10/06/2024 09:06 Note Text: Love Pino is a 74 year old female here for a Medicare wellness visit. Medicare Health Risk Assessment General Health Very good Exercise: Minutes/Day 10 min Exercise: Days/Week 1 day Alcohol: Daily Use Monthly or less Alcohol: Drinks/Day 1 or 2 Alcohol: 6 or more drinks Never Feel off balance No Concerns: Teeth/Dentures No Concerns: Sexual function No Troubled by feelings Anxious Frequency: Eating healthy diet Nearly every day ADLs requiring help None of the above Safety precautions in home/vehicle Yes Smoke, vape, chews tobacco No Difficulty hearing No Difficulty seeing No Current Providers Specialists: I have reviewed specialist-related care of the patient in the medical record. Current care team: Patient Care Team: Gerardo Saleh MD as PCP - General (Family Medicine) Juan Lopez MD as Physician (Radiation Oncology) Ibrahima Dhaliwal DO (Hematology/Oncology) Remington Sung MD (General Surgery) Lizeth Sifuentes APRN.CNP as Cement Crusher Operator (Family Medicine) Tiffany Ugarte PA-C as Cement Crusher Operator (Family Medicine) Medical/Family history review Reviewed and updated problem list, medical/surgical/family/social history, medications, and allergies. Opioid use review Opioid Medications (last 90 days) No data to display Anxiety/Depression screening KIRK-7 Score: 2 (Minimal Anxiety) Recommendation: no further intervention at this time Cognitive screening Cognitive screening reviewed and No further action needed (score 3-5). Functional Observation Was the patient's Timed Up AND Go test unsteady or >= 12 seconds? No Advance Care Planning Surrogate decision maker and/or advance care plan documented Measurements BP 131/82 Pulse 80 Wt 88 kg (194 lb 0.1 oz) LMP 01/27/2003 BMI 35.25 kg/m? Vision Screening: Follows with optometry/ophthalmology Assessment/Plan Medicare annual wellness visit, subsequent (Z00.00) - Counseled on healthy diet and regular exercise - Fall avoidance information provided - Personalized prevention plan provided - Discussed need for and benefit of weight loss. BMI 35.25 kg/(m2) Chief Complaint Patient presents with: Medicare Wellness Exam HPI Love Pino is a 74 year old female who presents here today for Above Complaints. Patient presents for annual wellness exam. Patient reports she has been gaining weight from her cancer medication. Past medical history, appointments, medications, allergies reviewed. Previous Medical History PAST MEDICAL HISTORY Diagnosis Date Arthritis aleve or advil prn Breast cancer of upper-outer quadrant of left female breast (HCC) 01/12/2016 Dr. Sung, lumpectomy Cystocele, midline 09/02/2020 Delayed emergence from general anesthesia Elevated blood sugar 09/02/2020 pt states high normal, not on medication, diet controlled History of colonic polyps 10/28/2020 colonoscopy- Dr. Bowden Lymphedema of left upper extremity 05/14/2016 S/p lumpectomy and node biopsy Malignant neoplasm of upper-outer quadrant of left breast in female, estrogen receptor positive (HCC) 11/06/2016 Dr. Sung Medicare annual wellness visit, subsequent 02/10/2019 Medical B eligibilty date 06/27/2017 Last done 09/02/2020 Mixed incontinence 05/12/2021 Obesity, Class I, BMI 30-34.9 04/03/2021 Osteopenia PONV (postoperative nausea and vomiting) Venous insufficiency (chronic) (peripheral) 03/09/2019 pt states left arm swelling since lymph node removal Previous Surgical History PAST SURGICAL HISTORY Procedure Laterality Date BREAST LUMPECTOMY HX Right 04/01/2024 BREAST SURGERY HX Left lumpectomy, followed by radiation and pills CARPAL TUNNEL 2013 Bilateral COLONOSCOPY 2016 repeat 5 yrs COLONOSCOPY FLX DX W/COLLJ SPEC WHEN PFRMD 12/19/2020 DILATION AND CURETTAGE DXAND/THER NONOBSTETRIC 1980 Dilation AND curettage KNEE SURGERY HX Right 08/01/2023 Total MASTECTOMY, PARTIAL Left 01/03/2016 lymph node bx(13) PAST SURGICAL HISTORY OF PAST SURGICAL HISTORY OF 03/2021 vaginal hysterectomy, ovaries remain Family History FAMILY HISTORY Problem Relation Age of Onset Breast Cancer Mother 57 age 60 Diabetes Father Heart Father GI Father bleeding ulcers No Known Problems Sister Parkinson?s Disease Sister No Known Problems Sister No Known Problems Sister Cancer Brother age 59 Lymphoma/liver disease No Known Problems Brother No Known Problems Brother other (Thyroid or Thraot cancer) Maternal Grandmother No Known Problems Maternal Grandfather other (Heart Condition) Paternal Grandmother other (Heart Condition) Paternal Grandfather Colon Cancer Maternal Aunt Colon Cancer Maternal Uncle Patient Allergies ALLERGIES Allergen Reactions Penicillin Anaphylaxis Sulf (more content not included)... [facility] 10-06-2024 History of Presen t illness Narrative Images from the original note were not included. Love Pino is a 74 year old female here for a Medicare wellness visit. Medicare Health Risk Assessment General Health Very good Exercise: Minutes/Day 10 min Exercise: Days/Week 1 day Alcohol: Daily Use Monthly or less Alcohol: Drinks/Day 1 or 2 Alcohol: 6 or more drinks Never Feel off balance No Concerns: Teeth/Dentures No Concerns: Sexual function No Troubled by feelings Anxious Frequency: Eating healthy diet Nearly every day ADLs requiring help None of the above Safety precautions in home/vehicle Yes Smoke, vape, chews tobacco No Difficulty hearing No Difficulty seeing No Current Providers Specialists: I have reviewed specialist-related care of the patient in the medical record. Current care team: Patient Care Team: Gerardo Saleh MD as PCP - General (Family Medicine) Juan Lopez MD as Physician (Radiation Oncology) Ibrahima Dhaliwal DO (Hematology/Oncology) Remington Sung MD (General Surgery) Lizeth Sifuentes APRN.HANH as Cement Crusher Operator (Family Medicine) Tiffany Ugarte PA-C as Cement Crusher Operator (Family Medicine) Medical/Family history review Reviewed and updated problem list, medical/surgical/family/social history, medications, and allergies. Opioid use review Opioid Medications (last 90 days) No data to display Anxiety/Depression screening KIRK-7 Score: 2 (Minimal Anxiety) Recommendation: no further intervention at this time Cognitive screening Cognitive screening reviewed and No further action needed (score 3-5). Functional Observation Was the patient's Timed Up & Go test unsteady or >= 12 seconds? No Advance Care Planning Surrogate decision maker and/or advance care plan documented Measurements BP 131/82 Pulse 80 Wt 88 kg (194 lb 0.1 oz) LMP 01/27/2003 BMI 35.25 kg/m Vision Screening: Follows with optometry/ophthalmology Assessment/Plan Medicare annual wellness visit, subsequent (Z00.00) - Counseled on healthy diet and regular exercise - Fall avoidance information provided - Personalized prevention plan provided - Discussed need for and benefit of weight loss. BMI 35.25 kg/(m^2) Chief Complaint Patient presents with: Medicare Wellness Exam HPI Love Pino is a 74 year old female who presents here today for Above Complaints. Patient presents for annual wellness exam. Patient reports she has been gaining weight from her cancer medication. Past medical history, appointments, medications, allergies reviewed. Previous Medical History PAST MEDICAL HISTORY Diagnosis Date Arthritis aleve or advil prn Breast cancer of upper-outer quadrant of left female breast (HCC) 01/12/2016 Dr. Sung, lumpectomy Cystocele, midline 09/02/2020 Delayed emergence from general anesthesia Elevated blood sugar 09/02/2020 pt states high normal, not on medication, diet controlled History of colonic polyps 10/28/2020 colonoscopy- Dr. Bowden Lymphedema of left upper extremity 05/14/2016 S/p lumpectomy and node biopsy Malignant neoplasm of upper-outer quadrant of left breast in female, estrogen receptor positive (HCC) 11/06/2016 Dr. Sung Medicare annual wellness visit, subsequent 02/10/2019 Medical B eligibilty date 06/27/2017 Last done 09/02/2020 Mixed incontinence 05/12/2021 Obesity, Class I, BMI 30-34.9 04/03/2021 Osteopenia PONV (postoperative nausea and vomiting) Venous insufficiency (chronic) (peripheral) 03/09/2019 pt states left arm swelling since lymph node removal Previous Surgical History PAST SURGICAL HISTORY Procedure Laterality Date BREAST LUMPECTOMY HX Right 04/01/2024 BREAST SURGERY HX Left lumpectomy, followed by radiation and pills CARPAL TUNNEL 2014 Bilateral COLONOSCOPY 2017 repeat 5 yrs COLONOSCOPY FLX DX W/COLLJ SPEC WHEN PFRMD 12/19/2020 DILATION & CURETTAGE DX&/THER NONOBSTETRIC 1980 Dilation & curettage KNEE SURGERY HX Right 08/01/2023 Total MASTECTOMY, PARTIAL Left 01/03/2016 lymph node bx(13) PAST SURGICAL HISTORY OF PAST SURGICAL HISTORY OF 03/2021 vaginal hysterectomy, ovaries remain Family History FAMILY HISTORY Problem Relation Age of Onset Breast Cancer Mother 57 age 60 Diabetes Father Heart Father GI Father bleeding ulcers No Known Problems Sister Parkinson s Disease Sister No Known Problems Sister No Known Problems Sister Cancer Brother age 59 Lymphoma/liver disease No Known Problems Brother No Known Problems Brother other (Thyroid or Thraot cancer) Maternal Grandmother No Known Problems Maternal Grandfather other (Heart Condition) Paternal Grandmother other (Heart Condition) Paternal Grandfather Colon Cancer Maternal Aunt Colon Cancer Maternal Uncle Patient Allergies ALLERGIES Allergen Reactions Penicillin Anaphylaxis Sulfa (Sulfonamide * Itching Current Medications Current Outpatient Medications on File Prior to Visit Medication Sig exemestane (AROMASIN) 25 mg tablet Take 1 tablet by mouth once daily. TAKE AFTER A MEAL. acetaminophen (TYLENOL EXTRA STRENGTH) 500 mg tablet Take 500 mg by mouth every 8 hours as needed. guaiFENesin (MUCINEX) 600 mg 12 hr tablet Take 1,200 mg by mouth once daily. LD 03/24 naproxen sodium (ALEVE ORAL) Take 1 tablet by mouth once daily. PT STATES WILL STOP TAKING ALEVE WITH LD BEING 03/26. docusate sodium (COLACE ORAL) Take 1 tablet by mouth once daily. CALCIUM CARBONATE (TUMS ORAL) Take 1-2 tablets by mouth once daily. LD 03/24 Cholecalciferol, Vitamin D3, 50 mcg (2,000 unit) cap Take 1 capsule by mouth once daily. LD 03/24 Qzmfotrv-Uluyowm-Kbrt-Lutein tab Take 1 tablet by mouth once daily. LD 03/24 No current facility-administered medications on file prior to visit. Social History Social History Tobacco Use Smoking status: Never Smokeless tobacco: Never Vaping Use Vaping status: Never Used Substance Use Topics Alcohol use: Yes Comment: wine </= 2/month Drug use: Never Review of Symptoms REVIEW OF SYSTEMS SEE HPI EXAM: BP 131/82 Pulse 80 Wt 88 kg (194 lb 0.1 oz) LMP 01/27/2003 BMI 35.25 kg/m General Appearance: Well appearing, alert, in no acute distress, well-hydrated, well nourished. Skin: Skin color, texture, turgor normal, no suspicious rashes or lesions. Lungs: Lungs clear to auscultation. No wheezing, rhonchi, rales. Heart: RRR without murmur, gallop, or rubs. No ectopy. Abdomen: Normal abdominal exam, Abdomen soft, non-tender. Bowel sounds normal. No masses, organomegaly. Musculoskeletal: No joint swelling, deformity, or tenderness. Peripheral Pulses: Normal. Neurologic: Gait normal. Reflexes normal and symmetric. Sensation grossly intact.. Health Maintenance List Depression Screening Never done Anxiety Screening Never done RSV Vaccine(1 - Risk 60-74 years 1-dose series) Never done Shingrix Vaccine(2 of 3) due on 05/13/2015 Covid-19 Vaccine(3 - season) due on 12/29/2023 Advance Directive Discussion due on 04/29/2024 Mammogram Screening due on 01/02/2025 Bone Density Screening due on 06/18/2026 DTaP,Tdap,Td Vaccine(2 - Td or Tdap) due on 07/16/2026 Diabetes Screening due on 03/17/2027 Lipid Screening due on 05/15/2028 Colorectal Cancer Screening due on 12/19/2030 Influenza Vaccine Completed Pneumococcal Vaccine: 50+ Completed Hepatitis C Screening Discontinued ASSESSMENT/PLAN: 1. Medicare annual wellness visit, subsequent - ICD9: V70.0, ICD10: Z00.00 (primary diagnosis) - Counseled on healthy diet and regular exercise - Discussed need and benefit for weight loss. BMI 35.25 kg/(m^2) 2. Screening for depression - ICD9: V79.0, ICD10: Z13.31 - DEPRESSION SCREENING 3. Encounter for screening examination for other mental health and behavioral disorders - ICD9: V79.8, ICD10: Z13.39 - ANXIETY SCREENING 4. Age-related osteoporosis without current pathological fracture - ICD9: 733.01, ICD10: M81.0 - Reviewed the need for Calcium and Vitamin D supplements and weight bearing exercise as tolerated 5. Advance directive discussed with patient - ICD9: V65.49, ICD10: Z71.89 - ADVANCE CARE PLAN DISCUSSION 6. Malignant neoplasm of upper-outer quadrant of left breast in female, estrogen receptor positive (HCC) - ICD9: 174.4, V86.0, ICD10: C50.412, Z17.0 - Follows with Dr. Dhaliwal, continue exemestane. 7. Elevated blood sugar - ICD9: 790.29, ICD10: R73.9 - HEMOGLOBIN A1C 8. Medication management - ICD9: V58.69, ICD10: Z79.899 - COMPLETE BLOOD COUNT AND DIFFERENTIAL - COMPREHENSIVE METABOLIC PANEL 9. Encounter for lipid screening for cardiovascular disease - ICD9: V77.91, V81.2, ICD10: Z13.220, Z13.6 - LIPID PANEL, NONFASTING Lizeth Sifuentes APRN.HANH documented in this encounter [facility] 10-06-2024 Instructions Lizeth Sifuentes APRN.HANH - 10/06/2024 8:44 AM EDT GUIDELINES FOR INCREASING DIETARY FIBER Dietary fiber is a term used to describe the indigestible part of plant foods. It is present in all parts of the plant leaf, seed, fruit, stem, root, bulb & tuber. Fiber is not digested or absorbed by the body. Fiber is necessary, however, for the proper functioning of the intestine & the whole body. Many individuals lack fiber in their diet. This is due to either the lack of plant foods such as fresh fruits & vegetables in the diet or to the excessive use of refined foods such as white flour & white rice. During the milling process, the fiber-rich outer layers of the grain are & sold in the familiar form of bran. Although many refined foods are excellent sources of vitamins & minerals, they do lack the fiber content of unrefined foods. Fiber increases bulk in the intestinal tract promoting regularity, larger but softer stools & more frequent elimination. When bran & other dietary fibers absorb water, they swell & become soft, providing the necessary bulk needed to aid bowel function & helping to control constipation. Select your foods wisely! The following recommendations have been developed to help you make appropriate food selections which will provide you with a diet high in fiber. BREADS & BREAD SUBSTITUTES Use breads, rolls, muffins, & other bread products which Have been made from the whole grain flours such as whole wheat & whole rye. Be creative! Select recipes for baked goods which re- quire whole grain flours, nuts, oats, or dried fruits & make your own high fiber foods. CEREALS Select whole grain cereals such as bran cereals, granola type cereals & oat cereals. Add a teaspoon of bran or a few nuts to your regular serving of cereal. FRUITS Select fresh or dried fruits. Use as many servings of fruit each day as your diet will allow. VEGETABLES Select fresh vegetables or ones which are cooked only to the crisp-tender stage. Use as many servings of vegetables each day as your diet will allow. MISCELLANEOUS Dry beans, lentils, soybeans & nuts are also high in fiber. Add them to casserole dishes. INCREASE THE FLUIDS IN YOUR DIET. CHOOSING PROTEIN Basic protein needs each day. (1 gm/kg) If competing in sports you can increase this: 100 grams of protein each day (1.2-1.7 grams/kg) Protein foods include both animal (meat, poultry, seafood, and eggs) and plant (beans, peas, soy products, nuts, and seeds) sources. We all need protein to build lean muscle mass -- and there is some evidence that eating protein several times a day will make amino acids available during your workout. Vary your protein food choices: Eat a variety of foods from the protein group each week. [place] with main dishes made with beans or peas, nuts, soy and seafood. Eat seafood in place of meat or poultry twice a week. Include some fish that are higher in oils and low in mercury, such as salmon, trout and huerta. Milk (8 grams), yogurt (12 grams) and Taiwanese yogurt (18 grams) contain protein. Choose lean or low-fat cuts of meat like round or sirloin and ground beef that is at least 90% lean. Trim or drain fat from meat and remove poultry skin. 3 ounces of meat, fish, poultry (about the size of a deck of cards) contains about 24 grams of protein. Have an egg: One egg a day, on average doesn't increase risk for heart disease, so make eggs a part of your weekly choices. One medium egg contains 6 grams of protein. Only the egg yolk contains cholesterol and satruated fat, so have as many egg whites as you want. Eating a healthy breakfast, especially one high in protein, increases satiety and reduces hunger throughout the day. Try a hard-boiled egg, peanut butter on whole grain toast, or add some nuts to your oatmeal or cereal. (2 tbsp of peanut butter is about 8 grams of protein) Eat plant protein foods more often. Try beans and peas (kidney, navy, black, manley, or white beans; splt peas; chickpeas; hummus), soy products (tofu, tempeh, veggie burgers), nuts and seeds. They are naturally low in saturated fat and high in fiber. (1/2 cup of beans is about 8 grams of protein) Choose unsalted nuts and seeds as a snack, on salads or in main dished to replace meat or poultry. Small portions of nuts will do - they are a concentrated source of calories. 1/2 cup nuts/seeds is about 15 grams of protein. Try grilling, broiling, roasting, or baking -- they don't add extra fat. Avoid breading meat, poultry or fish as this adds calories. Make a healthy sandwich: Choose turkey, roast beef, canned tuna or salmon, or peanut butter for sandwiches. Many deli meats, such as regular bologna or salami, are high in fat and sodium Make these occasional treats only. [place] Instant Breakfast, mixed with milk, contains 13 grams of protein a serving. Screening schedule The following prevention plan is recommended: Depression Screening Never done Anxiety Screening Never done RSV Vaccine(1 - Risk 60-74 years 1-dose series) Never done Shingrix Vaccine(2 of 3) due on 05/13/2015 Covid-19 Vaccine(2023- season) due on 12/29/2023 Advance Directive Discussion due on 04/29/2024 Mammogram Screening due on 01/02/2025 WHAT YOU CAN DO TO PREVENT FALLS Many falls can be prevented. By making some changes, you can lower your chances of falling. Four things YOU can do to prevent falls for you* and your caregiver 1. Begin a regular exercise program Exercise is one of the most important ways to lower your chances of falling. It makes you stronger and helps you feel better. Exercises that improve balance and coordination (like Kyle Chi) are the most helpful. Lack of exercise leads to weakness and increases your chances of falling. Ask your doctor or health care provider about the best type of exercise program for you. 2. Have your health care provider review your medicines Have your doctor or pharmacist review all the medicines you take, even [id number] medicines. As you get older, the way medicines work in your body can change. Some medicines, or combinations of medicines, can make you sleepy or dizzy and can cause you to fall. 3. Have your vision checked Have your eyes checked by an eye doctor at least once a year. You may be wearing the wrong glasses or have a condition like glaucoma or cataracts that limits your vision. Poor vision can increase your chances of falling. 4. Make your home safer About half of all falls happen at home. To make your home safer: Remove things you can trip over (like papers, books, clothes, and shoes) from stairs and places where you walk. Remove small throw rugs or use double-sided tape to keep the rugs from slipping. Keep items you use often in cabinets you can reach easily without using a step stool. Have grab bars put in next to your toilet and in the tub or shower. Use non-slip mats in the bathtub and on shower floors. Improve the lighting in your home. As you get older, you need brighter lights to see well. Hang light-weight curtains or shades to reduce glare. Have handrails and lights put in on all staircases. Wear shoes both inside and outside the house. Avoid going barefoot or wearing slippers. For more information, contact: Centers for Disease Control and Prevention www.cdc.gov/injury * This information may not apply if you have certain medical conditions. documented in this encounter [facility] 07-14-2024 Note HNO ID: [id number] Author: VAZ, EFFIE, [employer] BRACE[employer] MAKER.SCRAP [employer]OP ENGINEER Service: ? Author Type: Nurse Practitioner Type: Progress Notes Filed: 07/16/2024 10:22 Note Text: Chief Complaint Patient presents with: Established Patient HPI: Love Pino is a 74 year old female who presents here today for SCP/breast cancer. Per Dr. Dhaliwal's previous note: H/o [...] nuclear grade 2. ER >90%, strong and OR 60%, weak to moderate. HER2 quantified at [...] An additional 11 lymph nodes were negative. OV 04/16/2024: Received adjuvant radiation to the left breast. That was followed with 5 years of anastrozole completed 03/2021. Recent lumpectomy and sentinel lymph node biopsy for new right sided lobular carcinoma. NGS/biomarkers/wheat combine driver mutation analyses: [facility] genetic testing negative. RADIATION:05/25/24 - 06/12/24 Right breast Current therapy:Aromasin Began after radiation. No new concerns today. Appetite:Good. Stable. Energy level:Fair. Denies fevers or recent illness. Resp:denies cough or sob Cardiac:denies chest pain/palpitations GI:denies abd pain, n/v, moving bowels regularly :denies dysuria/hematuria Extrem:chronic L knee pain Endo:+hot flashes Probably three times a day. they do wake pt. up Neuro:denies symptoms of neuropathy Skin:denies rashes Heme:denies bleeding The ROS is otherwise negative. Past medical history, appointments, medications, allergies reviewed. No changes. EXAM: BP 130/82 Pulse 93 Temp 36.9 ?C (98.5 ?F) (Temporal) Wt 87 kg (191 lb 12.8 oz) LMP 01/27/2003 SpO2 95% BMI 34.85 kg/m? APPEARANCE Well appearing, alert, in no acute distress, well-hydrated, well nourished. HEART RRR with normal S1 and S2, no murmurs LUNG clear to auscultation BREAST FEMALE R radiation erythema, no mass/nodule b/l LYMPH NODES No cervical lymphadenopathy, No supraclavicular lymphadenopathy, and No axillary lymphadenopathy. ABDOMEN bowel sounds normoactive, soft, non-tender EXTREMITIES No edema NEURO Awake, alert and oriented x 3, Normal gait, and No involuntary motions. SKIN Skin color, texture, turgor normal, no suspicious rashes or lesions ASSESSMENT/PLAN: 1. Malignant neoplasm of overlapping sites of right breast in female, estrogen receptor positive (HCC) - ICD9: 174.8, V86.0, ICD10: C50.811, Z17.[address] Dhaliwal's previous note: Assessment: -New pT1c(m) pNX M0 ER/OR positive, HER2 negative invasive lobular carcinoma of the right breast. -History of a pT1 (1.9 cm; grade 2; LVI+) pN1a MX ER/OR positive HER2 negative stage IIA invasive ductal carcinoma the left breast. -Reviewed Oncotype DX. Plan up to 7 years exemestane. -Discussed bone health issues. Plan: -Scheduled to begin RT. -Rx for exemestane to start two weeks after completes radiation. -Check vit D. -DXA. -Dental clearance form provided. -Begin q 3 month Zometa in about 6 months--sooner if bone density worsened. -OV for SCP in about 2 months. - No concerning findings on exam. - Tolerating aromasin well. - Reviewed SCP with pt. Copies given. - Discussed follow up plan. - Reviewed bone density with pt. - Pt. would like to hold off on zometa for now. - Follow up with surgeon as scheduled. - Continue aromasin. - Follow up in 3-4 months. - Pt. aware to call office with any questions/concerns. The patient indicates understanding of these issues and agrees with the plan. All documentation from previous visit of 05/14/24-Dr. Dhaliwal was copied and pasted, documentation has been reviewed and edited as necessary for today's visit. Effie Vaz APRN.[facility] 07-14-2024 History of Presen t illness Narrative Chief Complaint Patient presents with: Established Patient HPI: Love Pino is a 74 year old female who presents here today for SCP/breast cancer. Per Dr. Dhaliwal's previous note: H/o [...] nuclear grade 2. ER >90%, strong and OR 60%, weak to moderate. HER2 quantified at [...] An additional 11 lymph nodes were negative. OV 04/16/2024: Received adjuvant radiation to the left breast. That was followed with 5 years of anastrozole completed 03/2021. Recent lumpectomy and sentinel lymph node biopsy for new right sided lobular carcinoma. NGS/biomarkers/wheat combine driver mutation analyses: [facility]. RADIATION:05/25/24 - 06/12/24 Right breast Current therapy:Aromasin Began after radiation. No new concerns today. Appetite:Good. Stable. Energy level:Fair. Denies fevers or recent illness. Resp:denies cough or sob Cardiac:denies chest pain/palpitations GI:denies abd pain, n/v, moving bowels regularly :denies dysuria/hematuria Extrem:chronic L knee pain Endo:+hot flashes Probably three times a day. they do wake pt. up Neuro:denies symptoms of neuropathy Skin:denies rashes Heme:denies bleeding The ROS is otherwise negative. Past medical history, appointments, medications, allergies reviewed. No changes. EXAM: BP 130/82 Pulse 93 Temp 36.9 C (98.5 F) (Temporal) Wt 87 kg (191 lb 12.8 oz) LMP 01/27/2003 SpO2 95% BMI 34.85 kg/m APPEARANCE Well appearing, alert, in no acute distress, well-hydrated, well nourished. HEART RRR with normal S1 and S2, no murmurs LUNG clear to auscultation BREAST FEMALE R radiation erythema, no mass/nodule b/l LYMPH NODES No cervical lymphadenopathy, No supraclavicular lymphadenopathy, and No axillary lymphadenopathy. ABDOMEN bowel sounds normoactive, soft, non-tender EXTREMITIES No edema NEURO Awake, alert and oriented x 3, Normal gait, and No involuntary motions. SKIN Skin color, texture, turgor normal, no suspicious rashes or lesions ASSESSMENT/PLAN: 1. Malignant neoplasm of overlapping sites of right breast in female, estrogen receptor positive (HCC) - ICD9: 174.8, V86.0, ICD10: C50.811, Z17.[address] Dhaliwal's previous note: Assessment: -New pT1c(m) pNX M0 ER/OR positive, HER2 negative invasive lobular carcinoma of the right breast. -History of a pT1 (1.9 cm; grade 2; LVI+) pN1a MX ER/OR positive HER2 negative stage IIA invasive ductal carcinoma the left breast. -Reviewed Oncotype DX. Plan up to 7 years exemestane. -Discussed bone health issues. Plan: -Scheduled to begin RT. -Rx for exemestane to start two weeks after completes radiation. -Check vit D. -DXA. -Dental clearance form provided. -Begin q 3 month Zometa in about 6 months--sooner if bone density worsened. -OV for SCP in about 2 months. - No concerning findings on exam. - Tolerating aromasin well. - Reviewed SCP with pt. Copies given. - Discussed follow up plan. - Reviewed bone density with pt. - Pt. would like to hold off on zometa for now. - Follow up with surgeon as scheduled. - Continue aromasin. - Follow up in 3-4 months. - Pt. aware to call office with any questions/concerns. The patient indicates understanding of these issues and agrees with the plan. All documentation from previous visit of 05/14/24-Dr. Dhaliwal was copied and pasted, documentation has been reviewed and edited as necessary for today's visit. Effie Vaz APRN.HANH documented in this encounter [facility] 07-10-2024 Telephone encounter Note Will review with pt. at [facility] next week. Effie Vaz APRN.CNP [facility] Work Phone: 07-10-2024 Miscellaneous Notes Will review with pt. at [facility] next week. Effie Vaz APRN.CNP spoke with pt. Given information concerning DXA results. Information on Zometa mailed to pt. Pt. Would like for [facility] to contact her to go over the results of the DXA ( interpret what her scores mean and where is in the spectrum of Osteoporosis) Irlanda Ramirez LPN DXA shows osteoporosis. Start q 6 month BMP/Zometa once gets dental clearance. Ibrahima Dhaliwal DO documented in this encounter [facility] 07-08-2024 Note HNO ID: [id number] Author: JUAN LOPEZ MD Service: ? Author Type: Physician Type: Progress Notes Filed: 07/08/2024 09:14 Note Text: AMBULATORY TELEPHONE VISIT Love Pino has consented to this telephone encounter. Persons Present: patient Chief Complaint/Reason: Four week follow-up after radiation treatment HPI: Stage IA, pT1c (m), grade 2 invasive lobular carcinoma of the right breast s/p right breast lumpectomy on 03/30/24. It's ER positive (90%, strong), OR positive (95%, strong) and Her2 0. s/p radiation treatment finished on 06/12/24. She is doing well without any specific new complaints. She denies any pain or tenderness over the right breast. She reports that erythema in the right breast almost all resolved. She denies any skin breakdown or sores in the right breast. Data Reviewed: None. Assessment: She is recovering well from acute radiation dermatitis. Plan: She is on Aromasin and is regularly followed with medical oncology. Total Time Spent: 10 minutes Juan Lopez MD [facility] 07-08-2024 History of Presen t illness Narrative AMBULATORY TELEPHONE VISIT Love Pino has consented to this telephone encounter. Persons Present: patient Chief Complaint/Reason: Four week follow-up after radiation treatment HPI: Stage IA, pT1c (m), grade 2 invasive lobular carcinoma of the right breast s/p right breast lumpectomy on 03/30/24. It's ER positive (90%, strong), OR positive (95%, strong) and Her2 0. s/p radiation treatment finished on 06/12/24. She is doing well without any specific new complaints. She denies any pain or tenderness over the right breast. She reports that erythema in the right breast almost all resolved. She denies any skin breakdown or sores in the right breast. Data Reviewed: None. Assessment: She is recovering well from acute radiation dermatitis. Plan: She is on Aromasin and is regularly followed with medical oncology. Total Time Spent: 10 minutes Juan Lopez MD documented in this encounter [facility] 06-22-2024 Note HNO ID: [id number] Author: REMINGTON SUNG MD Service: ? Author Type: Physician Type: Progress Notes Filed: 06/22/2024 10:20 Note Text: Subjective: Love is here today for her second postoperative checkup after a right partial mastectomy on 04/01/2024 (2+ months). She is also status post treatment for left breast cancer in the remote past. Her current pathology showed clear margins. Because of a negative ultrasound, clinical exam, age, and favorable receptor status, we did not sample lymph nodes. She recently completed her radiation therapy. She will be starting exemestane on June 27. She did have genetic testing done and no actionable abnormalities were found. She has tolerated everything well thus far. Other than some subacute radiation changes to the skin of the right breast she is doing well. These changes are minimal. Her last screening mammogram was 01/03/2024 (preop). Objective: BP 148/90 Pulse 96 Resp 14 Wt 87.1 kg (192 lb) LMP 01/27/2003 BMI 34.89 kg/m? She has subacute changes of the skin of the right breast/chest wall from her radiation. This is most prominent on the areola, which is somewhat tender but none of the changes are severe. Her incision in the breast is healing without complication. Assessment: Uneventful postoperative course. Plan: I will see her back in 4 months. That will take us to her 6-month visit and then I will plan on seeing her every 3 months thereafter. Participation of a fellow, resident, medical student, or advanced practice provider student in performing the sensitive examination was discussed with the patient or authorized account maintenance representative. The patient or authorized account maintenance representative has agreed to proceed with the sensitive examination. (Sensitive examination includes inspection and/or palpation of the breasts, pelvis, prostate and anorectal regions) Remington Sung MD [facility] 06-22-2024 History of Presen t illness Narrative Subjective: Love is here today for her second postoperative checkup after a right partial mastectomy on 04/01/2024 (2+ months). She is also status post treatment for left breast cancer in the remote past. Her current pathology showed clear margins. Because of a negative ultrasound, clinical exam, age, and favorable receptor status, we did not sample lymph nodes. She recently completed her radiation therapy. She will be starting exemestane on June 27. She did have genetic testing done and no actionable abnormalities were found. She has tolerated everything well thus far. Other than some subacute radiation changes to the skin of the right breast she is doing well. These changes are minimal. Her last screening mammogram was 01/03/2024 (preop). Objective: BP 148/90 Pulse 96 Resp 14 Wt 87.1 kg (192 lb) LMP 01/27/2003 BMI 34.89 kg/m She has subacute changes of the skin of the right breast/chest wall from her radiation. This is most prominent on the areola, which is somewhat tender but none of the changes are severe. Her incision in the breast is healing without complication. Assessment: Uneventful postoperative course. Plan: I will see her back in 4 months. That will take us to her 6-month visit and then I will plan on seeing her every 3 months thereafter. Participation of a fellow, resident, medical student, or advanced practice provider student in performing the sensitive examination was discussed with the patient or authorized account maintenance representative. The patient or authorized account maintenance representative has agreed to proceed with the sensitive examination. (Sensitive examination includes inspection and/or palpation of the breasts, pelvis, prostate and anorectal regions) Remington Sung MD documented in this encounter [facility] 06-22-2024 Telephone encounter Note spoke with pt. Given information concerning DXA results. Information on Zometa mailed to pt. Pt. Would like for [facility] to contact her to go over the results of the DXA ( interpret what her scores mean and where is in the spectrum of Osteoporosis) Irlanda Ramirez LPN [facility] 06-22-2024 Telephone encounter Note DXA shows osteoporosis. Start q 6 month BMP/Zometa once gets dental clearance. Ibrahima Dhaliwal DO [facility] 06-18-2024 History of Presen t illness Narrative Radiology Service Progress Note PATIENT NAME: Love Pino DATE OF SERVICE: June 18, 2024 TIME: 2:17 PM PATIENT IDENTITY VERIFICATION COMPLETED USING TWO (2) IDENTIFIERS: Name and Date of confirmed by patient verbally. FALL SCREENING: Has the patient had 2 falls in the last year or 1 fall with injury or currently using an Ambulatory Assistive Device (Walker, Cane, Wheelchair, Crutches, etc.)? No PATIENT GENDER DATA: Assigned female at . status: : No status: NO. PATIENT RELEVANT IMPLANT DATA REVIEWED: Not Applicable PATIENT PRESENTS WITH AN IMPLANTABLE OR ATTACHED PIER RUNNER: No RADIOLOGY DEPARTMENT: Bone Density PERIPHERAL IV DATA: Not applicable SIGNED BY: LINNETTE Horton) June 18, 2024 2:17 PM documented in this encounter [facility] 06-18-2024 Note HNO ID: [id number] Author: DYLAN BRICEÑO RT (R) Service: ? Author Type: Technologist Type: Progress Notes Filed: 06/18/2024 14:28 Note Text: Radiology Service Progress Note PATIENT NAME: Love Pino DATE OF SERVICE: June 18, 2024 TIME: 2:17 PM PATIENT IDENTITY VERIFICATION COMPLETED USING TWO (2) IDENTIFIERS: Name and Date of confirmed by patient verbally. FALL SCREENING: Has the patient had 2 falls in the last year or 1 fall with injury or currently using an Ambulatory Assistive Device (Walker, Cane, Wheelchair, Crutches, etc.)? No PATIENT GENDER DATA: Assigned female at . status: : No status: NO. PATIENT RELEVANT IMPLANT DATA REVIEWED: Not Applicable PATIENT PRESENTS WITH AN IMPLANTABLE OR ATTACHED PIER RUNNER: No RADIOLOGY DEPARTMENT: Bone Density PERIPHERAL IV DATA: Not applicable SIGNED BY: RT Sol(Nathalia) June 18, 2024 2:17 PM [facility] 06-12-2024 Note HNO ID: [id number] Author: AZALIA SALCEDO RN Service: ? Author Type: Registered Nurse Type: Progress Notes Filed: 06/12/2024 10:10 Note Text: AMBULATORY PATIENT EDUCATION NOTE TOPIC: SURVIVAL SKILLS: Symptom Management READINESS TO LEARN COGNITIVE ABILITY: Alert and oriented MOTIVATION TO LEARN: Eager Interested FAMILY SUPPORT: Unable to assess - Family not present INSTRUCTION PROVIDED TO: Patient PATIENT LEARNS BEST BY: Multiple Methods FACTORS AFFECTING LEARNING: None PHYSICAL LIMITATIONS AFFECTING LEARNING: None LEARNING RESPONSE DIAGNOSIS: C50.412 METHOD OF INSTRUCTION: Teach Back skin care Individual instruction Written instruction/Handouts Verbal instruction PATIENT / FAMILY RESPONSE: Verbalizes understanding of: SYMPTOM MANAGEMENT-Correct actions to take to manage symptoms associated with his/her disease/illness FOLLOW-UP PLAN: Patient instructed to call with any further issues Reinforce - Repeat previous content Contact information given. SUPPLEMENTAL MATERIAL: D/C sheet REFERRAL (RECOMMENDATION): None Written discharge instructions given and reviewed with patient. Patient verbalizes understanding. Encouraged to call with any questions or concerns. Instruction for 4 week phone follow up appointment given by Dr. Lopez. Electronically Signed By: Azalia Salcedo RN In Department: RADIATION ONCOLOGY Time spent on patient education: 05 minutes. [facility] 06-12-2024 History of Presen t illness Narrative AMBULATORY PATIENT EDUCATION NOTE TOPIC: SURVIVAL SKILLS: Symptom Management READINESS TO LEARN COGNITIVE ABILITY: Alert and oriented MOTIVATION TO LEARN: Eager Interested FAMILY SUPPORT: Unable to assess - Family not present INSTRUCTION PROVIDED TO: Patient PATIENT LEARNS BEST BY: Multiple Methods FACTORS AFFECTING LEARNING: None PHYSICAL LIMITATIONS AFFECTING LEARNING: None LEARNING RESPONSE DIAGNOSIS: C50.412 METHOD OF INSTRUCTION: Teach Back skin care Individual instruction Written instruction/Handouts Verbal instruction PATIENT / FAMILY RESPONSE: Verbalizes understanding of: SYMPTOM MANAGEMENT-Correct actions to take to manage symptoms associated with his/her disease/illness FOLLOW-UP PLAN: Patient instructed to call with any further issues Reinforce - Repeat previous content Contact information given. SUPPLEMENTAL MATERIAL: D/C sheet REFERRAL (RECOMMENDATION): None Written discharge instructions given and reviewed with patient. Patient verbalizes understanding. Encouraged to call with any questions or concerns. Instruction for 4 week phone follow up appointment given by Dr. Lopez. Electronically Signed By: Azalia Salcedo RN In Department: RADIATION ONCOLOGY Time spent on patient education: 05 minutes. documented in this encounter [facility] 06-12-2024 History of Presen t illness Narrative LOVE PINO [id number] : 1950 06/12/2024 [facility] Department of Radiation Oncology RADIATION ONCOLOGY - COMPLETION NOTE DATE OF SIMULATION: 05/20/24 DATES OF TREATMENT: 05/25/24 - 06/12/24 UNIT: W_TRUEBEAM AREA TREATED: Right breast DISEASE: Stage IA, pT1c (m), grade 2 invasive lobular carcinoma of the right breast s/p right breast lumpectomy on 03/30/24. It's ER positive (90%, strong), OR positive (95%, strong) and Her2 0. DELIVERED DOSE: 4005 cGy in 15 fractions treating to the 100% isodose line with 6&10MV and 4 segmented gongora. ELAPSED TIME: 18 days. TOLERANCE/ RESPONSE: She has mild tenderness over the right breast nipple area. Mild erythema of the right breast. REMARKS: She tolerated radiation treatment well. Four week follow-up with md. Staff Physician JUAN LOPEZ M.D. / 1:29 AM Electronically Signed cc: Gerardo Saleh [address] [place] [address] Ibrahima Dhaliwal [address] [place] [phone] documented in this encounter [facility] 06-12-2024 Note HNO ID: [id number] Author: JUAN LOPEZ MD Service: Radiation Oncology Author Type: Physician Type: Progress Notes Filed: 06/19/2024 11:29 Note Text: LOVE PINO [id number] : 1950 06/12/2024 [facility] Department of Radiation Oncology RADIATION ONCOLOGY - COMPLETION NOTE DATE OF SIMULATION: 05/20/24 DATES OF TREATMENT: 05/25/24 - 06/12/24 UNIT: W_TRUEBEAM AREA TREATED: Right breast DISEASE: Stage IA, pT1c (m), grade 2 invasive lobular carcinoma of the right breast s/p right breast lumpectomy on 03/30/24. It's ER positive (90%, strong), OR positive (95%, strong) and Her2 0. DELIVERED DOSE: 4005 cGy in 15 fractions treating to the 100% isodose line with [id number] and 4 segmented gongora. ELAPSED TIME: 18 days. TOLERANCE/ RESPONSE: She has mild tenderness over the right breast nipple area. Mild erythema of the right breast. REMARKS: She tolerated radiation treatment well. Four week follow-up with me. Staff Physician JUAN LOPEZ M.D. / :29 AM Electronically Signed cc: Gerardo Saleh [address] [place] [address] Ibrahima Dhaliwal [address] [facility] [address] [facility] 06-12-2024 Note Education (MATTYTWS) LOVE PINO ([id number]) 1950 F TXT Date Time Provider Department 06/12/24 JUAN LOPEZ Reason for Visit: Patient Education [91] During your visit today, we recorded the following information about you: Allergies As of Date: 06/12/2024 Noted Allergy Reaction PENICILLIN 01/12/2016 10 - Anaphylaxis SULFA (SULFONAMIDE ANTIBIOTICS) 01/12/2016 9 - Itching Date Reviewed: 06/09/2024 Reviewed by: Bryanna Siu, COLT - Fully Assessed Prescriptions as of 06/12/2024 - exemestane (AROMASIN) 25 mg tablet Take 1 tablet by mouth once daily. TAKE AFTER A MEAL. - acetaminophen (TYLENOL EXTRA STRENGTH) 500 mg tablet Take 500 mg by mouth every 8 hours as needed. - guaiFENesin (MUCINEX) 600 mg 12 hr tablet Take 1,200 mg by mouth once daily. LD 03/24 - Biotin 1 mg tab Take 1 tablet by mouth once daily. LD 03/24 - naproxen sodium (ALEVE ORAL) Take 1 tablet by mouth once daily. PT STATES WILL STOP TAKING ALEVE WITH LD BEING 03/26. - docusate sodium (COLACE ORAL) Take 1 tablet by mouth once daily. - CALCIUM CARBONATE (TUMS ORAL) Take 1-2 tablets by mouth once daily. LD 03/24 - Cholecalciferol, Vitamin D3, 50 mcg (2,000 unit) cap Take 1 capsule by mouth once daily. 03/24 - Eqvsjjuf-Dmuunbl-Yhpf-Lutein tab Take 1 tablet by mouth once daily. 03/24 Encounter Status:Closed by AZALIA SALCEDO on 06/12/24 [facility] 06-09-2024 Note HNO ID: [id number] Author: JUAN LOPEZ MD Service: ? Author Type: Physician Type: Progress Notes Filed: 06/09/2024 10:13 Note Text: Radiation Oncology - On Treatment Review (OTR) Note PATIENT NAME: Love Pino PATIENT DIAGNOSIS: Stage IA, pT1c (m), grade 2 invasive lobular carcinoma of the right breast s/p right breast lumpectomy on 03/30/24. It's ER positive (90%, strong), OR positive (95%, strong) and Her2 0. COURSE: post-operative AREA TREATED: Right breast CURRENT DOSE: 3204 cGy in 12 fx PLANNED DOSE: 4005 cGy in 15 fx Status: Post-menopausal SUBJECTIVE: She has mild tenderness over the right breast nipple area. EXAM: KPS: 90 General Appearance: Alert and oriented. No acute distress. Radiation dermatitis: Mild erythema IMAGING/LAB RESULTS: None Treatment chart checked: Yes Patient treatment site reviewed and verified:Yes Port films reviewed and current:Yes Medications started: None ASSESSMENT/PLAN: Clinically stable. Toxicity within expected parameters. Continue radiation treatment as planned. Jaun Lopez MD [facility] 06-09-2024 History of Presen t illness Narrative Radiation Oncology - On Treatment Review (OTR) Note PATIENT NAME: Love Pino PATIENT DIAGNOSIS: Stage IA, pT1c (m), grade 2 invasive lobular carcinoma of the right breast s/p right breast lumpectomy on 03/30/24. It's ER positive (90%, strong), OR positive (95%, strong) and Her2 0. COURSE: post-operative AREA TREATED: Right breast CURRENT DOSE: 3204 cGy in 12 fx PLANNED DOSE: 4005 cGy in 15 fx Status: Post-menopausal SUBJECTIVE: She has mild tenderness over the right breast nipple area. EXAM: KPS: 90 General Appearance: Alert and oriented. No acute distress. Radiation dermatitis: Mild erythema IMAGING/LAB RESULTS: None Treatment chart checked: Yes Patient treatment site reviewed and verified:Yes Port films reviewed and current:Yes Medications started: None ASSESSMENT/PLAN: Clinically stable. Toxicity within expected parameters. Continue radiation treatment as planned. Juan Lopez MD Radiation Therapy - Nursing Note (OTV) PATIENT NAME: Love Pino PATIENT June 09, 2024 [facility] FACILITY/LOCATION: [facility] NOTE TYPE: BREAST Subjective Data see pain assessment, also some headache Additional Data Do you want to see a Hot Die Picker? No Status: Post-menopausal. Stress Scale: On a scale of 0 to 10, what number best describes how much distress you have experienced in the past week?(0 being no distress and 10 being extreme distress) 1 Social work notified: Pt denied need to see social worker delinquency prevention at this time. Nursing Assessment Fatigue: increased fatigue over baseline but not altering normal activities Appetite: good Nutritional Intake: Regular oral intake. Weight Gain/Loss: Not applicable Ambulatory weight history: Last 6 Encounter Wt Readings: Date: Wt: 05/14/2024 87.1 kg (192 lb) 05/07/2024 86.9 kg (191 lb 8 oz) 04/30/2024 86.6 kg (190 lb 14.4 oz) 04/16/2024 86.9 kg (191 lb 8 oz) 03/18/2024 86.3 kg (190 lb 4.1 oz) 03/09/2024 86.6 kg (190 lb 14.4 oz) Nausea:None Vomiting: None Bowel Function: normal bowel movements Erythema/Hyperpigmentation:mild Desquamation:none Rash:none Skin Care: Aquaphor Skin Sensation: mild burning Focused Assessment BREAST: Lymphedema Assessment: Is the patient noting any swelling? No. SIGNED by: Bryanna Siu RN documented in this encounter [facility] 06-09-2024 Note HNO ID: [id number] Author: BRYANNA SIU RN Service: ? Author Type: Registered Nurse Type: Progress Notes Filed: 06/09/2024 10:13 Note Text: Radiation Therapy - Nursing Note (OTV) PATIENT NAME: Love Pino PATIENT June 09, 2024 [facility] FACILITY/LOCATION: [facility] NOTE TYPE: BREAST Subjective Data see pain assessment, also some headache Additional Data Do you want to see a Hot Die Picker? No Status: Post-menopausal. Stress Scale: On a scale of 0 to 10, what number best describes how much distress you have experienced in the past week?(0 being no distress and 10 being extreme distress) 1 Social work notified: Pt denied need to see social worker delinquency prevention at this time. Nursing Assessment Fatigue: increased fatigue over baseline but not altering normal activities Appetite: good Nutritional Intake: Regular oral intake. Weight Gain/Loss: Not applicable Ambulatory weight history: Last 6 Encounter Wt Readings: Date: Wt: 05/14/2024 87.1 kg (192 lb) 05/07/2024 86.9 kg (191 lb 8 oz) 04/30/2024 86.6 kg (190 lb 14.4 oz) 04/16/2024 86.9 kg (191 lb 8 oz) 03/18/2024 86.3 kg (190 lb 4.1 oz) 03/09/2024 86.6 kg (190 lb 14.4 oz) Nausea:None Vomiting: None Bowel Function: normal bowel movements Erythema/Hyperpigmentation:mild Desquamation:none Rash:none Skin Care: Aquaphor Skin Sensation: mild burning Focused Assessment BREAST: Lymphedema Assessment: Is the patient noting any swelling? No. SIGNED by: Bryanna Siu RN [facility] 06-02-2024 Note HNO ID: [id number] Author: JUAN LOPEZ MD Service: ? Author Type: Physician Type: Progress Notes Filed: 06/02/2024 09:40 Note Text: Radiation Oncology - On Treatment Review (OTR) Note PATIENT NAME: Love Pino PATIENT DIAGNOSIS: Stage IA, pT1c (m), grade 2 invasive lobular carcinoma of the right breast s/p right breast lumpectomy on 03/30/24. It's ER positive (90%, strong), OR positive (95%, strong) and Her2 0. COURSE: post-operative AREA TREATED: Right breast CURRENT DOSE: 1869 cGy in 7 fx PLANNED DOSE: 4005 cGy in 15 fx Status: Post-menopausal SUBJECTIVE: She has mild tenderness over the right breast nipple area. EXAM: KPS: 90 General Appearance: Alert and oriented. No acute distress. Radiation dermatitis: Slight erythema IMAGING/LAB RESULTS: None Treatment chart checked: Yes Patient treatment site reviewed and verified:Yes Port films reviewed and current:Yes Medications started: None ASSESSMENT/PLAN: Clinically stable. Toxicity within expected parameters. Continue radiation treatment as planned. Juan Lopez MD [facility] 06-02-2024 History of Presen t illness Narrative Radiation Oncology - On Treatment Review (OTR) Note PATIENT NAME: Love Pino PATIENT DIAGNOSIS: Stage IA, pT1c (m), grade 2 invasive lobular carcinoma of the right breast s/p right breast lumpectomy on 03/30/24. It's ER positive (90%, strong), OR positive (95%, strong) and Her2 0. COURSE: post-operative AREA TREATED: Right breast CURRENT DOSE: 1869 cGy in 7 fx PLANNED DOSE: 4005 cGy in 15 fx Status: Post-menopausal SUBJECTIVE: She has mild tenderness over the right breast nipple area. EXAM: KPS: 90 General Appearance: Alert and oriented. No acute distress. Radiation dermatitis: Slight erythema IMAGING/LAB RESULTS: None Treatment chart checked: Yes Patient treatment site reviewed and verified:Yes Port films reviewed and current:Yes Medications started: None ASSESSMENT/PLAN: Clinically stable. Toxicity within expected parameters. Continue radiation treatment as planned. Juan Lopez MD Radiation Therapy - Nursing Note (OTV) PATIENT NAME: Love Pino PATIENT June 02, 2024 [facility] FACILITY/LOCATION: [facility] NOTE TYPE: BREAST Subjective Data some tenderness in right nipple area Additional Data Do you want to see a Hot Die Picker? No Status: Post-menopausal. Stress Scale: On a scale of 0 to 10, what number best describes how much distress you have experienced in the past week?(0 being no distress and 10 being extreme distress) 2 Social work notified: Pt denied need to see social worker delinquency prevention at this time. Nursing Assessment Fatigue: increased fatigue over baseline but not altering normal activities Appetite: good Nutritional Intake: Regular oral intake. Weight Gain/Loss: No Ambulatory weight history: Last 6 Encounter Wt Readings: Date: Wt: 05/14/2024 87.1 kg (192 lb) 05/07/2024 86.9 kg (191 lb 8 oz) 04/30/2024 86.6 kg (190 lb 14.4 oz) 04/16/2024 86.9 kg (191 lb 8 oz) 03/18/2024 86.3 kg (190 lb 4.1 oz) 03/09/2024 86.6 kg (190 lb 14.4 oz) Nausea:None Vomiting: None Bowel Function: normal bowel movements Erythema/Hyperpigmentation:none Desquamation:none Rash:none Skin Care: Aquaphor Skin Sensation: Within Normal Limits Focused Assessment BREAST: Lymphedema Assessment: Is the patient noting any swelling? No. SIGNED by: Bryanna Siu RN documented in this encounter [facility] 06-02-2024 Note HNO ID: [id number] Author: BRYANNA SIU RN Service: ? Author Type: Registered Nurse Type: Progress Notes Filed: 06/02/2024 09:40 Note Text: Radiation Therapy - Nursing Note (OTV) PATIENT NAME: Love Pino PATIENT June 02, 2024 [facility] FACILITY/LOCATION: [facility] NOTE TYPE: BREAST Subjective Data some tenderness in right nipple area Additional Data Do you want to see a Hot Die Picker? No Status: Post-menopausal. Stress Scale: On a scale of 0 to 10, what number best describes how much distress you have experienced in the past week?(0 being no distress and 10 being extreme distress) 2 Social work notified: Pt denied need to see social worker delinquency prevention at this time. Nursing Assessment Fatigue: increased fatigue over baseline but not altering normal activities Appetite: good Nutritional Intake: Regular oral intake. Weight Gain/Loss: No Ambulatory weight history: Last 6 Encounter Wt Readings: Date: Wt: 05/14/2024 87.1 kg (192 lb) 05/07/2024 86.9 kg (191 lb 8 oz) 04/30/2024 86.6 kg (190 lb 14.4 oz) 04/16/2024 86.9 kg (191 lb 8 oz) 03/18/2024 86.3 kg (190 lb 4.1 oz) 03/09/2024 86.6 kg (190 lb 14.4 oz) Nausea:None Vomiting: None Bowel Function: normal bowel movements Erythema/Hyperpigmentation:none Desquamation:none Rash:none Skin Care: Aquaphor Skin Sensation: Within Normal Limits Focused Assessment BREAST: Lymphedema Assessment: Is the patient noting any swelling? No. SIGNED by: Bryanna Siu RN [facility] 05-26-2024 Note HNO ID: [id number] Author: JUAN LOPEZ MD Service: ? Author Type: Physician Type: Progress Notes Filed: 05/26/2024 09:50 Note Text: Radiation Oncology - On Treatment Review (OTR) Note PATIENT NAME: Love Pino PATIENT DIAGNOSIS: Stage IA, pT1c (m), grade 2 invasive lobular carcinoma of the right breast s/p right breast lumpectomy on 03/30/24. It's ER positive (90%, strong), OR positive (95%, strong) and Her2 0. COURSE: post-operative AREA TREATED: Right breast CURRENT DOSE: 534 cGy in 2 fx PLANNED DOSE: 4005 cGy in 15 fx Status: Post-menopausal SUBJECTIVE: She is doing well without any specific new complaints. EXAM: KPS: 100 General Appearance: Alert and oriented. No acute distress. Radiation dermatitis: No IMAGING/LAB RESULTS: None Treatment chart checked: Yes Patient treatment site reviewed and verified:Yes Port films reviewed and current:Yes Medications started: None ASSESSMENT/PLAN: Clinically stable. No signs of toxicity. Continue radiation treatment as planned. Juan Lopez MD [facility] 05-26-2024 History of Presen t illness Narrative Radiation Oncology - On Treatment Review (OTR) Note PATIENT NAME: Love Pino PATIENT DIAGNOSIS: Stage IA, pT1c (m), grade 2 invasive lobular carcinoma of the right breast s/p right breast lumpectomy on 03/30/24. It's ER positive (90%, strong), OR positive (95%, strong) and Her2 0. COURSE: post-operative AREA TREATED: Right breast CURRENT DOSE: 534 cGy in 2 fx PLANNED DOSE: 4005 cGy in 15 fx Status: Post-menopausal SUBJECTIVE: She is doing well without any specific new complaints. EXAM: KPS: 100 General Appearance: Alert and oriented. No acute distress. Radiation dermatitis: No IMAGING/LAB RESULTS: None Treatment chart checked: Yes Patient treatment site reviewed and verified:Yes Port films reviewed and current:Yes Medications started: None ASSESSMENT/PLAN: Clinically stable. No signs of toxicity. Continue radiation treatment as planned. Juan Lopez MD Radiation Therapy - Nursing Note (OTV) PATIENT NAME: Love Pnio PATIENT May 26, 2024 [facility] FACILITY/LOCATION: [place] [facility] NOTE TYPE: BREAST Subjective Data no complaints Additional Data Do you want to see a Hot Die Picker? No Status: Post-menopausal. Stress Scale: On a scale of 0 to 10, what number best describes how much distress you have experienced in the past week?(0 being no distress and 10 being extreme distress) 1 Social work notified: Pt denied need to see social worker delinquency prevention at this time. Nursing Assessment Fatigue: none Appetite: good Nutritional Intake: Regular oral intake. Weight Gain/Loss: Not applicable Ambulatory weight history: Last 6 Encounter Wt Readings: Date: Wt: 05/14/2024 87.1 kg (192 lb) 05/07/2024 86.9 kg (191 lb 8 oz) 04/30/2024 86.6 kg (190 lb 14.4 oz) 04/16/2024 86.9 kg (191 lb 8 oz) 03/18/2024 86.3 kg (190 lb 4.1 oz) 03/09/2024 86.6 kg (190 lb 14.4 oz) Nausea:None Vomiting: None Bowel Function: normal bowel movements Erythema/Hyperpigmentation:none Desquamation:none Rash:none Skin Care: Aquaphor Skin Sensation: Within Normal Limits Focused Assessment BREAST: Lymphedema Assessment: Is the patient noting any swelling? No. SIGNED by: Bryanna Siu RN documented in this encounter [facility] 05-26-2024 Note HNO ID: [id number] Author: BRYANNA SIU RN Service: ? Author Type: Registered Nurse Type: Progress Notes Filed: 05/26/2024 09:50 Note Text: Radiation Therapy - Nursing Note (OTV) PATIENT NAME: Love Pino PATIENT May 26, 2024 [facility] FACILITY/LOCATION: [facility] NOTE TYPE: BREAST Subjective Data no complaints Additional Data Do you want to see a Hot Die Picker? No Status: Post-menopausal. Stress Scale: On a scale of 0 to 10, what number best describes how much distress you have experienced in the past week?(0 being no distress and 10 being extreme distress) 1 Social work notified: Pt denied need to see social worker delinquency prevention at this time. Nursing Assessment Fatigue: none Appetite: good Nutritional Intake: Regular oral intake. Weight Gain/Loss: Not applicable Ambulatory weight history: Last 6 Encounter Wt Readings: Date: Wt: 05/14/2024 87.1 kg (192 lb) 05/07/2024 86.9 kg (191 lb 8 oz) 04/30/2024 86.6 kg (190 lb 14.4 oz) 04/16/2024 86.9 kg (191 lb 8 oz) 03/18/2024 86.3 kg (190 lb 4.1 oz) 03/09/2024 86.6 kg (190 lb 14.4 oz) Nausea:None Vomiting: None Bowel Function: normal bowel movements Erythema/Hyperpigmentation:none Desquamation:none Rash:none Skin Care: Aquaphor Skin Sensation: Within Normal Limits Focused Assessment BREAST: Lymphedema Assessment: Is the patient noting any swelling? No. SIGNED by: Bryanna Siu RN [facility] 05-20-2024 Note HNO ID: [id number] Author: BRYANNA SIU RN Service: ? Author Type: Registered Nurse Type: Progress Notes Filed: 05/20/2024 14:43 Note Text: Radiation Therapy - Patient Education Note PATIENT NAME: Love Pino PATIENT May 20, 2024 [facility] FACILITY/LOCATION: [place] READINESS TO LEARN Cognitive Ability: Alert and oriented Motivation to learn: Eager Family Support: Moderate - Family present but overwhelmed Instruction provide to: Patient and Family member Patient learns best by: Individual Instruction Written Instruction - Hand-outs Verbal Instruction Factors effecting learning: None Physical limitations effecting learning: None LEARNING RESPONSE Diagnosis: Pt simulated today for radiation therapy to left breast. Education Topic/Teaching Points: Radiation therapy, Side effects, and OTV: Method of instruction: Teach Back skin care Individual instruction Written instruction/Handouts Verbal instruction Patient /Family response: Patient and family verbalized understanding of radiation treatments, side effects, OTV, and transportation. Follow-up plan: Complete - No need for follow-up Contact information given. Supplemental material: Informational handouts on Deodorant, Fatigue, and Skin changes. Referral (recommendation): None, Pt denied need for social work, van service, and junior high school principal. Patient has an Onbody or Implanted device: No Signed by: Bryanna Siu RN [facility] 05-20-2024 History of Presen t illness Narrative Radiation Therapy - Patient Education Note PATIENT NAME: Love Pino PATIENT May 20, 2024 [facility] FACILITY/LOCATION: [place] READINESS TO LEARN Cognitive Ability: Alert and oriented Motivation to learn: Eager Family Support: Moderate - Family present but overwhelmed Instruction provide to: Patient and Family member Patient learns best by: Individual Instruction Written Instruction - Hand-outs Verbal Instruction Factors effecting learning: None Physical limitations effecting learning: None LEARNING RESPONSE Diagnosis: Pt simulated today for radiation therapy to left breast. Education Topic/Teaching Points: Radiation therapy, Side effects, and OTV: Method of instruction: Teach Back skin care Individual instruction Written instruction/Handouts Verbal instruction Patient /Family response: Patient and family verbalized understanding of radiation treatments, side effects, OTV, and transportation. Follow-up plan: Complete - No need for follow-up Contact information given. Supplemental material: Informational handouts on Deodorant, Fatigue, and Skin changes. Referral (recommendation): None, Pt denied need for social work, van service, and junior high school principal. Patient has an Onbody or Implanted device: No Signed by: Bryanna Siu, RN documented in this encounter [facility] 05-20-2024 History of Presen t illness Narrative LOVE PINO [id number] 05/20/2024 [facility] Department of Radiation Oncology Treatment Planning Note For reasons stated in the consult note, Love Pino is a candidate for radiation therapy. Based on review and interpretation of the relevant diagnostic studies together with the exam findings, Love Pino was simulated on 05/20/2024 at which time the target volume and/or requisite gongora were delineated, as indicated in the simulation note, to be treated according to the prescription. The treatment target and organs at risk were contoured on the simulation scan. After reviewing multiple treatment plans with dosimetry, the best plan was approved to deliver the prescribed course of radiation to the target area using 3D planning to allow for the best isodose distribution, treating to the 100% isodose line with 6&10MV and 4 segmented gongora. Custom MLC asym jaws were the treatment device(s) used to shape/modify the beams. Limiting dose to normal tissue was confirmed upon review of the calculated dose volume histogram. A completed summary of this plan dated 05/21/2024 incorporated herein by reference includes dose, beam arrangements, energy, blocking, isodose distribution, and/or ports and DVH. Electronically Signed Juan Lopez M.D. 53:19 PM documented in this encounter [facility] 05-20-2024 History of Presen t illness Narrative LOVE PINO [id number] 05/20/2024 [facility] Department of Radiation Oncology [facility] RADIATION ONCOLOGY SIMULATION NOTE DATE OF SIMULATION: 05/20/2024 MACHINE: [employer] Definition CT Simulator Diagnosis: Stage IA, pT1c (m), grade 2 invasive lobular carcinoma of the right breast s/p right breast lumpectomy on 03/30/24. It's ER positive (90%, strong), OR positive (95%, strong) and Her2 0. AREA:Right Breast. PATIENT POSITION: Supine. CONTRAST: None PROTOCOL: None BLOCKING: Custom blocking to be determined at treatment planning. FIXATION DEVICE: In order to achieve accurate and reproducible treatments, the patient is to be immobilized with AIO orfit system. PROCEDURE: A time-out was conducted and recorded by the therapist. Patient was simulated on the CT scanner for external beam radiation therapy. Treatment site was marked by the simulation therapist. ASSESSMENT/PLAN: Patient tolerated simulation procedure well. Treatments will be initiated after treatment planning. The patient is scheduled for a verification simulation on the treatment machine to ensure proper set-up and field arrangement is correct prior to the first treatment of primary and boost gongora if applicable. Electronically Signed Juan Lopez M.D./fabiola 53:18 PM documented in this encounter [facility] 05-20-2024 Note HNO ID: [id number] Author: JUAN LOPEZ MD Service: Radiation Oncology Author Type: Physician Type: Progress Notes Filed: 05/21/2024 15:18 Note Text: LOVE PINO [id number] 05/20/2024 [facility] Department of Radiation Oncology [facility] RADIATION ONCOLOGY SIMULATION NOTE DATE OF SIMULATION: 05/20/2024 MACHINE: Siemens Definition CT Simulator Diagnosis: Stage IA, pT1c (m), grade 2 invasive lobular carcinoma of the right breast s/p right breast lumpectomy on 03/30/24. It's ER positive (90%, strong), OR positive (95%, strong) and Her2 0. AREA:Right Breast. PATIENT POSITION: Supine. CONTRAST: None PROTOCOL: None BLOCKING: Custom blocking to be determined at treatment planning. FIXATION DEVICE: In order to achieve accurate and reproducible treatments, the patient is to be immobilized with AIO orfit system. PROCEDURE: A time-out was conducted and recorded by the therapist. Patient was simulated on the CT scanner for external beam radiation therapy. Treatment site was marked by the simulation therapist. ASSESSMENT/PLAN: Patient tolerated simulation procedure well. Treatments will be initiated after treatment planning. The patient is scheduled for a verification simulation on the treatment machine to ensure proper set-up and field arrangement is correct prior to the first treatment of primary and boost gongora if applicable. Electronically Signed Juan Lopez M.D./fabiola :18 PM [facility] 05-20-2024 Note HNO ID: [id number] Author: JUAN LOPEZ MD Service: Radiation Oncology Author Type: Physician Type: Progress Notes Filed: 05/21/2024 15:19 Note Text: LOVE PINO [id number] 05/20/2024 [facility] Department of Radiation Oncology Treatment Planning Note For reasons stated in the consult note, Love Pino is a candidate for radiation therapy. Based on review and interpretation of the relevant diagnostic studies together with the exam findings, Love Pino was simulated on 05/20/2024 at which time the target volume and/or requisite gongora were delineated, as indicated in the simulation note, to be treated according to the prescription. The treatment target and organs at risk were contoured on the simulation scan. After reviewing multiple treatment plans with dosimetry, the best plan was approved to deliver the prescribed course of radiation to the target area using 3D planning to allow for the best isodose distribution, treating to the 100% isodose line with [id number] and 4 segmented gongora. Custom MLC asym jaws were the treatment device(s) used to shape/modify the beams. Limiting dose to normal tissue was confirmed upon review of the calculated dose volume histogram. A completed summary of this plan dated 05/21/2024 incorporated herein by reference includes dose, beam arrangements, energy, blocking, isodose distribution, and/or ports and DVH. Electronically Signed Juan Lopez M.D. :19 PM [facility] 05-14-2024 Telephone encounter Note Filed. [facility] 05-14-2024 Miscellaneous Notes Filed. Order pended earlier today under OV. Please file. Lesvia Girard LPN Patient called to schedule Bone Density. Please place order if needed. documented in this encounter [facility] 05-14-2024 Telephone encounter Note Order pended earlier today under OV. Please file. Lesvia Girard LPN [facility] 05-14-2024 Telephone encounter Note Patient called to schedule Bone Density. Please place order if needed. [facility] Work Phone: 05-14-2024 Note HNO ID: [id number] Author: IBRAHIMA DHALIWAL, Service: ? Author Type: Physician Type: Progress Notes Filed: 05/14/2024 16:07 Note Text: Diagnosis: 1) Breast cancer. HPI: Patient is a 73 yo female with past medical history significant only for arthritis. She was found to have an [...] nuclear grade 2. ER >90%, strong and OR 60%, weak to moderate. HER2 quantified at [...] An additional 11 lymph nodes were negative. OV 04/16/2024: Received adjuvant radiation to the left breast. That was followed with 5 years of anastrozole completed 03/2021. Recent lumpectomy and sentinel lymph node biopsy for new right sided lobular carcinoma. Pathology reviewed. Presents for ongoing oncologic management. Interim history: PMH, medications, social history and family history and allergies personally reviewed by me today. Any changes documented in appropriate section. ROS: Constitutional: Denies episodes of fever and night sweats. Not significantly fatigued. Neuro: Denies ALEXANDER, vertigo, dizziness and imbalance. No symptoms of neuropathy. HEENT: No recent change in voice, vision or hearing. Resp: Denies cough, wheeze and hemoptysis. Denies shortness of breath at rest. Denies PANCHAL. CVS: Denies exertional chest pain, PND, orthopnea and LE edema. GI: Denies dysgeusia. Denies symptoms of stomatitis. Denies dysphagia and odynophagia. Denies reflux, n/v, change in bowel habits and abdominal pain. No symptoms of stomatitis. : Denies dysuria or gross hematuria. No symptoms of bladder outlet obstruction. Endo: Denies hot flashes. Denies polyuria and polydipsia. Denies heat and cold intolerance. Musculoskeletal: Denies bone, back, joint and muscular pain. Derm: Denies rash. Heme: Denies unusual bleeding and unexplained bruising. Psych: Normal mood. PHYSICAL EXAM: Vitals: Blood pressure 132/86, pulse 95, temperature 36.8 ?C (98.2 ?F), weight 87.1 kg (192 lb), last menstrual period 01/27/2003, SpO2 97%. Well-appearing and in no acute distress. EYES: Sclerae are anicteric bilaterally. NGS/biomarkers/wheat combine driver mutation analyses: [facility] genetic testing negative. ASSESSMENT/PLAN: (C50.412) Breast cancer of upper-outer quadrant of left female breast (HCC) (primary encounter diagnosis) Assessment: -New pT1c(m) pNX M0 ER/OR positive, HER2 negative invasive lobular carcinoma of the right breast. -History of a pT1 (1.9 cm; grade 2; LVI+) pN1a MX ER/OR positive HER2 negative stage IIA invasive ductal carcinoma the left breast. -Reviewed Oncotype DX. Plan up to 7 years exemestane. -Discussed bone health issues. Plan: -Scheduled to begin RT. -Rx for exemestane to start two weeks after completes radiation. -Check vit D. -DXA. -Dental clearance form provided. -Begin q 3 month Zometa in about 6 months--sooner if bone density worsened. -OV for SCP in about 2 months. Portions of this documentation were copied and pasted from my previous office visit note dated 04/06/2024 in order to provide a cohesive continuity of the history. The note has been reviewed and edited and updated as necessary. I spent a total of 25 minutes on the date of the service which included preparing to see the patient, [id number] patient care, completing clinical documentation, counseling and educating the patient/family/caregiver, ordering medications, tests, or procedures, communicating with other HCPs (not separately reported), and communicating results to the patient/family/caregiver. Ibrahima Dhaliwal DO [facility] 05-14-2024 History of Presen t illness Narrative Diagnosis: 1) Breast cancer. HPI: Patient is a 73 yo female with past medical history significant only for arthritis. She was found to have an [...] nuclear grade 2. ER >90%, strong and OR 60%, weak to moderate. HER2 quantified at [...] An additional 11 lymph nodes were negative. OV 04/16/2024: Received adjuvant radiation to the left breast. That was followed with 5 years of anastrozole completed 03/2021. Recent lumpectomy and sentinel lymph node biopsy for new right sided lobular carcinoma. Pathology reviewed. Presents for ongoing oncologic management. Interim history: PMH, medications, social history and family history and allergies personally reviewed by me today. Any changes documented in appropriate section. ROS: Constitutional: Denies episodes of fever and night sweats. Not significantly fatigued. Neuro: Denies ALEXANDER, vertigo, dizziness and imbalance. No symptoms of neuropathy. HEENT: No recent change in voice, vision or hearing. Resp: Denies cough, wheeze and hemoptysis. Denies shortness of breath at rest. Denies PANCHAL. CVS: Denies exertional chest pain, PND, orthopnea and LE edema. GI: Denies dysgeusia. Denies symptoms of stomatitis. Denies dysphagia and odynophagia. Denies reflux, n/v, change in bowel habits and abdominal pain. No symptoms of stomatitis. : Denies dysuria or gross hematuria. No symptoms of bladder outlet obstruction. Endo: Denies hot flashes. Denies polyuria and polydipsia. Denies heat and cold intolerance. Musculoskeletal: Denies bone, back, joint and muscular pain. Derm: Denies rash. Heme: Denies unusual bleeding and unexplained bruising. Psych: Normal mood. PHYSICAL EXAM: Vitals: Blood pressure 132/86, pulse 95, temperature 36.8 C (98.2 F), weight 87.1 kg (192 lb), last menstrual period 01/27/2003, SpO2 97%. Well-appearing and in no acute distress. EYES: Sclerae are anicteric bilaterally. NGS/biomarkers/wheat combine driver mutation analyses: [facility] genetic testing negative. ASSESSMENT/PLAN: (C50.412) Breast cancer of upper-outer quadrant of left female breast (HCC) (primary encounter diagnosis) Assessment: -New pT1c(m) pNX M0 ER/OR positive, HER2 negative invasive lobular carcinoma of the right breast. -History of a pT1 (1.9 cm; grade 2; LVI+) pN1a MX ER/OR positive HER2 negative stage IIA invasive ductal carcinoma the left breast. -Reviewed Oncotype DX. Plan up to 7 years exemestane. -Discussed bone health issues. Plan: -Scheduled to begin RT. -Rx for exemestane to start two weeks after completes radiation. -Check vit D. -DXA. -Dental clearance form provided. -Begin q 3 month Zometa in about 6 months--sooner if bone density worsened. -OV for SCP in about 2 months. Portions of this documentation were copied and pasted from my previous office visit note dated 04/06/2024 in order to provide a cohesive continuity of the history. The note has been reviewed and edited and updated as necessary. I spent a total of 25 minutes on the date of the service which included preparing to see the patient, [id number] patient care, completing clinical documentation, counseling and educating the patient/family/caregiver, ordering medications, tests, or procedures, communicating with other HCPs (not separately reported), and communicating results to the patient/family/caregiver. Ibrahima Dhaliwal DO Est. Pt. 6-8 week F/U Irlanda Ramirez LPN documented in this encounter [facility] 05-14-2024 Note HNO ID: [id number] Author: IRLANDA RAMIREZ LPN Service: ? Author Type: LICENSED NURSE Type: Progress Notes Filed: 05/14/2024 16:07 Note Text: Est. Pt. 6-8 week F/U Irlanda Ramirez LPN [facility] 05-13-2024 Note HNO ID: [id number] Author: GIANA VELASCO RN Service: ? Author Type: Registered Nurse Type: Progress Notes Filed: 05/13/2024 09:33 Note Text: The below documentation is based on a tumor board discussion amongst the multidisciplinary team and should NOT be used for insurance verification or coverage purposes or interpreted as the final plan of care: Date of Presentation: 05/12/24 Presenter: Dr Sung Team Members: Surgery, medical oncology, radiation oncology, radiology, pathology, ancillary staff Primary reason for presentation: Treatment options Stage: [id number] Pathway discussed: NCCN Guidelines Clinical trial discussion: Yes discussion was held no trials at this time. Genetics discussion: Yes discussion was held, patient had genetic testing completed. Discussion / recommendations: After review and discussion of patient presentation, the following thoughts / recommendations were made. In 2016, the patient was diagnosed with breast cancer. She had a lumpectomy with radiation and completed 5 years of anastrozole. On 04/01/24, she was found to have 2 foci of invasive lobular carcinoma ER/OR+; HER2 -. She proceeded with a lumpectomy that showed negative margins. Due to oncotype score of 16, it is not felt chemotherapy is needed. It is recommended that she proceed with AI therapy. She will be following up with her oncologist Dr Dhaliwal in [place] and was also referred to radiation oncology in [place]. She has a good support system. No dietary or social needs at this time. This abstract and interpretation of the conversation at tumor board has been completed by Giana Velasco RN, BSN, OCN. The final recommendations / treatment plan will be made by the patient's primary health care team and patient, after full discussion as appropriate. [facility] 05-07-2024 Note HNO ID: [id number] Author: AZALIA SALCEDO RN Service: ? Author Type: Registered Nurse Type: Progress Notes Filed: 05/11/2024 16:08 Note Text: Radiation Therapy - Nursing Note (Consult) PATIENT NAME: Love Pino PATIENT May 07, 2024 [facility] FACILITY/LOCATION: [place] Chief Complaint: consult Reason for visit: Consult. Referring physician: Internal provider Dr Dhaliwal Subjective Data: no complaints Additional Data Do you want to see a Hot Die Picker? No Are you interested in information about fertility? No Status: History of hysterectomy Stress Scale: On a scale of 0 to 10, what number best describes how much distress you have experienced in the past week?(0 being no distress and 10 being extreme distress) 1 Social work notified: no SIGNED by: Azalia Salcedo RN [facility] 05-07-2024 History of Presen t illness Narrative Radiation Therapy - Nursing Note (Consult) PATIENT NAME: Love Pino PATIENT May 07, 2024 [facility] FACILITY/LOCATION: [place] Chief Complaint: consult Reason for visit: Consult. Referring physician: Internal provider Dr Dhaliwal Subjective Data: no complaints Additional Data Do you want to see a Hot Die Picker? No Are you interested in information about fertility? No Status: History of hysterectomy Stress Scale: On a scale of 0 to 10, what number best describes how much distress you have experienced in the past week?(0 being no distress and 10 being extreme distress) 1 Social work notified: no SIGNED by: Azalia Salcedo RN Radiation Oncology - New Patient/Consult Note PATIENT NAME: Love Pino PATIENT REQUESTING PROVIDER: Dr. Ibrahima Dhaliwal DIAGNOSIS: Stage IA, pT1c (m), grade 2 invasive lobular carcinoma of the right breast s/p right breast lumpectomy on 03/30/24. It's ER positive (90%, strong), OR positive (95%, strong) and Her2 0. HPI: 73 year old female who presents with above diagnosis, for an opinion regarding the role of radiation therapy in the management of the patient's disease. Final recommendations will be communicated back to the requesting physician by way of the shared medical record, or letter to requesting physician via US mail. 73 year old woman who has history of stage II, T1cN1, invasive ductal carcinoma of the left breast in 2016 treated with left breast lumpectomy, sentinel node biopsy followed by left axillary node dissection. It's ER positive (>90%, strong), OR positive (week to moderate, 60%) and Her2/garry 1+, s/p radiation treatment finished on 04/04/16. She was then on Arimidex. She had an abnormal screening mammogram on 01/06/24. It showed an indeterminate asymmetry in the right breast. Diagnostic right mammogram on 01/29/24 showed an isodense, irregular mass measuring 0.7 cm with spiculated margins in the superior right breast. US showed an irregular not parallel irregular mass with indistinct margins measuring 0.6 cm in the middle depth region of the right breast at 11 o'clock. Core biopsy of the right breast lesion on 02/24/24 showed grade 2 invasive lobular carcinoma. It's ER positive (90%, strong), OR positive (95%, strong) and Her2 0. Right axillary US on 03/17/24 was negative for suspicious node. She underwent needle localization and right breast lumpectomy on 03/30/24. Pathology showed two foci of invasive lobular carcinoma measuring 1.1 x 1.1 x 0.8 cm and 0.7 x 0.5 x 0.4 cm Two nodules were about 4 cm apart. Surgical margins were negative with the closest margin was 1 mm. There was focal perineural invasion. ALLERGIES Allergen Reactions Penicillin Anaphylaxis Sulfa (Sulfonamide * Itching Current Outpatient Medications on File Prior to Visit Medication Sig acetaminophen (TYLENOL EXTRA STRENGTH) 500 mg tablet Take 500 mg by mouth every 8 hours as needed. guaiFENesin (MUCINEX) 600 mg 12 hr tablet Take 1,200 mg by mouth once daily. LD 03/24 Biotin 1 mg tab Take 1 tablet by mouth once daily. LD 03/24 naproxen sodium (ALEVE ORAL) Take 1 tablet by mouth once daily. PT STATES WILL STOP TAKING ALEVE WITH LD BEING 03/26. docusate sodium (COLACE ORAL) Take 1 tablet by mouth once daily. CALCIUM CARBONATE (TUMS ORAL) Take 1-2 tablets by mouth once daily. LD 03/24 Cholecalciferol, Vitamin D3, 50 mcg (2,000 unit) cap Take 1 capsule by mouth once daily. LD 03/24 Frehktef-Smuoszt-Vavm-Lutein tab Take 1 tablet by mouth once daily. LD 03/24 No current facility-administered medications on file prior to visit. PAST MEDICAL HISTORY Diagnosis Date Arthritis aleve or advil prn Breast cancer of upper-outer quadrant of left female breast (HCC) 01/12/2016 Dr. Sung, lumpectomy Cystocele, midline 09/02/2020 Delayed emergence from general anesthesia Elevated blood sugar 09/02/2020 pt states high normal, not on medication, diet controlled History of colonic polyps 10/28/2020 colonoscopy- Dr. Bowden Lymphedema of left upper extremity 05/14/2016 S/p lumpectomy and node biopsy Malignant neoplasm of upper-outer quadrant of left breast in female, estrogen receptor positive (HCC) 11/06/2016 Dr. Sung Medicare annual wellness visit, subsequent 02/10/2019 Medical B eligibilty date 06/27/2017 Last done 09/02/2020 Mixed incontinence 05/12/2021 Obesity, Class I, BMI 30-34.9 04/03/2021 Osteopenia PONV (postoperative nausea and vomiting) Venous insufficiency (chronic) (peripheral) 03/09/2019 pt states left arm swelling since lymph node removal Prior radiation therapy, collagen vascular disease, or inflammatory bowel disease: Yes, previous RT to the left breast as above. Any implanted or external electric devices? No status: Post-menopausal. PAST SURGICAL HISTORY Procedure Laterality Date BREAST LUMPECTOMY HX Right 04/01/2024 BREAST SURGERY HX Left lumpectomy, followed by radiation and pills CARPAL TUNNEL 2014 Bilateral COLONOSCOPY 2017 repeat 5 yrs COLONOSCOPY FLX DX W/COLLJ SPEC WHEN PFRMD 12/19/2020 DILATION & CURETTAGE DX&/THER NONOBSTETRIC 1980 Dilation & curettage KNEE SURGERY HX Right 08/01/2023 Total MASTECTOMY, PARTIAL Left 01/03/2016 lymph node bx(13) PAST SURGICAL HISTORY OF PAST SURGICAL HISTORY OF 03/2021 vaginal hysterectomy, ovaries remain FAMILY HISTORY Problem Relation Age of Onset Breast Cancer Mother 57 age 60 Diabetes Father Heart Father GI Father bleeding ulcers No Known Problems Sister Parkinson s Disease Sister No Known Problems Sister No Known Problems Sister Cancer Brother age 59 Lymphoma/liver disease No Known Problems Brother No Known Problems Brother other (Thyroid or Thraot cancer) Maternal Grandmother No Known Problems Maternal Grandfather other (Heart Condition) Paternal Grandmother other (Heart Condition) Paternal Grandfather Colon Cancer Maternal Aunt Colon Cancer Maternal Uncle Social History Tobacco Use Smoking status: Never Smokeless tobacco: Never Vaping Use Vaping status: Never Used Substance Use Topics Alcohol use: Yes Comment: wine </= 2/month Drug use: Never COMPLETE REVIEW OF SYSTEMS: General Appearance: Alert and oriented. No acute distress. HEENT: NCAT. Sclera anicteric. EOMI. Neck: Normal ROM. Chest: No respiratory distress. Breasts: There is no dominant mass, suspicious skin change or nipple discharge bilaterally. Abdomen: Soft. Nontender. Nondistended. Musculoskeletal: No edema. Normal ROM in extremities. Neuro: Speech fluent. Gait normal. No focal deficits. Skin: No rashes noted Lymphatics: No palpable cervical or supraclavicular or axillary adenopathy. Hematologic: No signs of active bleeding. PHYSICAL EXAM: VS: BP 125/65 Pulse 76 Temp 36.6 C (97.9 F) (Temporal) Resp 15 Wt 86.9 kg (191 lb 8 oz) LMP 01/27/2003 SpO2 96% BMI 34.80 kg/m KPS: 100 General Appearance: Alert and oriented. No acute distress. HEENT: NCAT. Sclera anicteric. EOMI. Neck: Normal ROM. Chest: No respiratory distress. Breasts: Recent surgical incision scar healing well. There is no dominant mass, suspicious skin change or nipple discharge bilaterally. Abdomen: Soft. Nontender. Nondistended. Musculoskeletal: No edema. Normal ROM in extremities. Neuro: Speech fluent. Gait normal. No focal deficits. Skin: No rashes noted Lymphatics: No palpable cervical or supraclavicular or axillary adenopathy. Hematologic: No signs of active bleeding. RADIOLOGY/LABORATORY DATA: see HPI ASSESSMENT AND PLAN: 73 year old woman with stage IA, pT1c (m), grade 2 invasive lobular carcinoma of the right breast s/p right breast lumpectomy on 03/30/24. It's ER positive (90%, strong), OR positive (95%, strong) and Her2 0. She has two multifocal invasive lobular carcinoma separate by 4 cm of normal breast tissue. They were both removed with negative margins. I recommend radiation treatment to the right breast. I explained the rationale, benefits, alternative management options and potential complications of radiation treatment to the patient and she understands and agrees to proceed. It was explained and understood that other personnel such as radiation therapists, central communications specialist, and physicists will participate in planning and delivery of radiation treatment. Permanent tattoo oneill will be placed to aid with positioning for daily treatment and the patient consented. Patient will have a simulation procedure after she heals from surgery. Thank you very much for allowing us to participate in her care. Signed by: Juan Lopez MD cc: Gerardo Saleh [id number] [place] [address] Ibrahima Dhaliwal [address] [facility] [id number] documented in this encounter [facility] 05-07-2024 Note HNO ID: [id number] Author: JUAN LOPEZ MD Service: ? Author Type: Physician Type: Progress Notes Filed: 05/11/2024 16:08 Note Text: Radiation Oncology - New Patient/Consult Note PATIENT NAME: Love Pino PATIENT REQUESTING PROVIDER: Dr. Ibrahima Dhaliwal DIAGNOSIS: Stage IA, pT1c (m), grade 2 invasive lobular carcinoma of the right breast s/p right breast lumpectomy on 03/30/24. It's ER positive (90%, strong), OR positive (95%, strong) and Her2 0. HPI: 73 year old female who presents with above diagnosis, for an opinion regarding the role of radiation therapy in the management of the patient's disease. Final recommendations will be communicated back to the requesting physician by way of the shared medical record, or letter to requesting physician via US mail. 73 year old woman who has history of stage II, T1cN1, invasive ductal carcinoma of the left breast in 2016 treated with left breast lumpectomy, sentinel node biopsy followed by left axillary node dissection. It's ER positive (>90%, strong), OR positive (week to moderate, 60%) and Her2/garry 1+, s/p radiation treatment finished on 04/04/16. She was then on Arimidex. She had an abnormal screening mammogram on 01/06/24. It showed an indeterminate asymmetry in the right breast. Diagnostic right mammogram on 01/29/24 showed an isodense, irregular mass measuring 0.7 cm with spiculated margins in the superior right breast. US showed an irregular not parallel irregular mass with indistinct margins measuring 0.6 cm in the middle depth region of the right breast at 11 o'clock. Core biopsy of the right breast lesion on 02/24/24 showed grade 2 invasive lobular carcinoma. It's ER positive (90%, strong), OR positive (95%, strong) and Her2 0. Right axillary US on 03/17/24 was negative for suspicious node. She underwent needle localization and right breast lumpectomy on 03/30/24. Pathology showed two foci of invasive lobular carcinoma measuring 1.1 x 1.1 x 0.8 cm and 0.7 x 0.5 x 0.4 cm Two nodules were about 4 cm apart. Surgical margins were negative with the closest margin was 1 mm. There was focal perineural invasion. ALLERGIES Allergen Reactions Penicillin Anaphylaxis Sulfa (Sulfonamide * Itching Current Outpatient Medications on File Prior to Visit Medication Sig acetaminophen (TYLENOL EXTRA STRENGTH) 500 mg tablet Take 500 mg by mouth every 8 hours as needed. guaiFENesin (MUCINEX) 600 mg 12 hr tablet Take 1,200 mg by mouth once daily. LD 03/24 Biotin 1 mg tab Take 1 tablet by mouth once daily. LD 03/24 naproxen sodium (ALEVE ORAL) Take 1 tablet by mouth once daily. PT STATES WILL STOP TAKING ALEVE WITH LD BEING 03/26. docusate sodium (COLACE ORAL) Take 1 tablet by mouth once daily. CALCIUM CARBONATE (TUMS ORAL) Take 1-2 tablets by mouth once daily. LD 03/24 Cholecalciferol, Vitamin D3, 50 mcg (2,000 unit) cap Take 1 capsule by mouth once daily. LD 03/24 Acvzeawm-Jneiwqg-Jgok-Lutein tab Take 1 tablet by mouth once daily. LD 03/24 No current facility-administered medications on file prior to visit. PAST MEDICAL HISTORY Diagnosis Date Arthritis aleve or advil prn Breast cancer of upper-outer quadrant of left female breast (HCC) 01/12/2016 Dr. Sung, lumpectomy Cystocele, midline 09/02/2020 Delayed emergence from general anesthesia Elevated blood sugar 09/02/2020 pt states high normal, not on medication, diet controlled History of colonic polyps 10/28/2020 colonoscopy- Dr. Bowden Lymphedema of left upper extremity 05/14/2016 S/p lumpectomy and node biopsy Malignant neoplasm of upper-outer quadrant of left breast in female, estrogen receptor positive (HCC) 11/06/2016 Dr. Sung Medicare annual wellness visit, subsequent 02/10/2019 Medical B eligibilty date 06/27/2017 Last done 09/02/2020 Mixed incontinence 05/12/2021 Obesity, Class I, BMI 30-34.9 04/03/2021 Osteopenia PONV (postoperative nausea and vomiting) Venous insufficiency (chronic) (peripheral) 03/09/2019 pt states left arm swelling since lymph node removal Prior radiation therapy, collagen vascular disease, or inflammatory bowel disease: Yes, previous RT to the left breast as above. Any implanted or external electric devices? No status: Post-menopausal. PAST SURGICAL HISTORY Procedure Laterality Date BREAST LUMPECTOMY HX Right 04/01/2024 BREAST SURGERY HX Left lumpectomy, followed by radiation and pills CARPAL TUNNEL 2014 Bilateral COLONOSCOPY 2017 repeat 5 yrs COLONOSCOPY FLX DX W/COLLJ SPEC WHEN PFRMD 12/19/2020 DILATION AND CURETTAGE DXAND/THER NONOBSTETRIC 1980 Dilation AND curettage KNEE SURGERY HX Right 08/01/2023 Total MASTECTOMY, PARTIAL Left 01/03/2016 lymph node bx(13) PAST SURGICAL HISTORY OF PAST SURGICAL HISTORY OF 03/2021 vaginal hysterectomy, ovaries remain FAMILY HISTORY Problem Relation Age of Onset Breast Cancer Mother 57 age 60 Diabetes Father Heart Fat (more content not included)... [facility] 05-07-2024 Telephone encounter Note ----- Message from Remnigton Sung MD sent at 05/07/2024 8:40 AM EST ----- Will you please let her know that her Oncotype score came back low, so I do not believe she will need chemotherapy. Great news. Patient verbalized understanding [facility] 05-07-2024 Miscellaneous Notes ----- Message from Remington Sung MD sent at 05/07/2024 8:40 AM EST ----- Will you please let her know that her Oncotype score came back low, so I do not believe she will need chemotherapy. Great news. Patient verbalized understanding documented in this encounter [facility] 05-07-2024 Telephone encounter Note Patient aware of all information. Lesvia Girard LPN [facility] 05-07-2024 Miscellaneous Notes Patient aware of all information. Lesvia Girard LPN Can let her know the Oncotype test showed there is no indication for chemotherapy. She should keep her consultation appointment with Dr. Lopez. I would still like to see her for her scheduled follow-up visit with me this month to review the test in detail and discuss plan for treatment following radiation. Ibrahima Dhaliwal DO documented in this encounter [facility] 05-07-2024 Telephone encounter Note Can let her know the Oncotype test showed there is no indication for chemotherapy. She should keep her consultation appointment with Dr. Lopez. I would still like to see her for her scheduled follow-up visit with me this month to review the test in detail and discuss plan for treatment following radiation. Ibrahmia Dhaliwal DO [facility] Work Phone: 04-30-2024 Note HNO ID: [id number] Author: REMINGTON SUNG MD Service: ? Author Type: Physician Type: Progress Notes Filed: 04/30/2024 09:18 Note Text: Subjective: She is here for her first postoperative visit after a right partial mastectomy on 04/01/2024. She had clinically and radiologically negative nodes and because of her favorable tumor characteristics and her age we did not sample nodes. Her margins were clear. They did see 2 illd-xv-sdiq lesions measuring 1.1 and 0.7 cm respectively. Estrogen and progesterone receptors were both strongly positive. HER2 receptor was negative. She did have genetic testing done which was negative for actionable abnormalities. Oncotype testing is pending. She has follow-up scheduled with her oncologist. He also referred her to radiation oncology for an opinion. She may or may not need radiation, since she is over 72 and did have small tumor burden and favorable receptor status. She is healing nicely with no complaints. Objective: BP 150/82 Pulse 85 Resp 16 Wt 86.6 kg (190 lb 14.4 oz) LMP 01/27/2003 BMI 34.69 kg/m? The incision in her right breast is healing without complication. Assessment: Uneventful postoperative course. Plan: She will keep her appointment with the radiation oncologist on Saturday. She will follow-up with her medical oncologist regarding her Oncotype results. I do suspect they will have her on AI therapy at some point. I will see her back in 1 month for a second and final postoperative checkup before getting her onto a routine follow-up scheduled. The sensitive examination was discussed with the Patient or Patient's Authorized Storage Worker. As applicable, any other physician, advance practice provider, medical student, or other health professional student that will be observing or involved in the sensitive examination for educational or training purposes was discussed with the Patient or Authorized Storage Worker. The Patient or Authorized Storage Worker has agreed to proceed with the sensitive examination. (Sensitive examination includes inspection and/or palpation of the breasts, pelvis, prostate and anorectal regions) Remington Sung MD [facility] 04-30-2024 History of Presen t illness Narrative Subjective: She is here for her first postoperative visit after a right partial mastectomy on 04/01/2024. She had clinically and radiologically negative nodes and because of her favorable tumor characteristics and her age we did not sample nodes. Her margins were clear. They did see 2 opxr-bz-izwa lesions measuring 1.1 and 0.7 cm respectively. Estrogen and progesterone receptors were both strongly positive. HER2 receptor was negative. She did have genetic testing done which was negative for actionable abnormalities. Oncotype testing is pending. She has follow-up scheduled with her oncologist. He also referred her to radiation oncology for an opinion. She may or may not need radiation, since she is over 72 and did have small tumor burden and favorable receptor status. She is healing nicely with no complaints. Objective: BP 150/82 Pulse 85 Resp 16 Wt 86.6 kg (190 lb 14.4 oz) LMP 01/27/2003 BMI 34.69 kg/m The incision in her right breast is healing without complication. Assessment: Uneventful postoperative course. Plan: She will keep her appointment with the radiation oncologist on Saturday. She will follow-up with her medical oncologist regarding her Oncotype results. I do suspect they will have her on AI therapy at some point. I will see her back in 1 month for a second and final postoperative checkup before getting her onto a routine follow-up scheduled. The sensitive examination was discussed with the Patient or Patient's Authorized Storage Worker. As applicable, any other physician, advance practice provider, medical student, or other health professional student that will be observing or involved in the sensitive examination for educational or training purposes was discussed with the Patient or Authorized Storage Worker. The Patient or Authorized Storage Worker has agreed to proceed with the sensitive examination. (Sensitive examination includes inspection and/or palpation of the breasts, pelvis, prostate and anorectal regions) Remington Sung MD documented in this encounter [facility] 04-16-2024 Note HNO ID: [id number] Author: IBRAHIMA DHALIWAL, DO Service: ? Author Type: Physician Type: Progress Notes Filed: 04/16/2024 17:03 Note Text: Diagnosis: 1) Breast cancer. HPI: Patient is a 73 yo female with past medical history significant only for arthritis. She was found to have an [...] nuclear grade 2. ER >90%, strong and OR 60%, weak to moderate. HER2 quantified at [...] An additional 11 lymph nodes were negative. Presents for ongoing oncologic management. Interim history: Received adjuvant radiation to the left breast. That was followed with 5 years of anastrozole completed 03/2021. Recent lumpectomy and sentinel lymph node biopsy for new right sided lobular carcinoma. Pathology reviewed. PMH, medications, social history and family history and allergies personally reviewed by me today. Any changes documented in appropriate section. ROS: Constitutional: Denies episodes of fever and night sweats. Not significantly fatigued. Neuro: Denies ALEXANDER, vertigo, dizziness and imbalance. No symptoms of neuropathy. HEENT: No recent change in voice, vision or hearing. Resp: Denies cough, wheeze and hemoptysis. Denies shortness of breath at rest. Denies PANCHAL. CVS: Denies exertional chest pain, PND, orthopnea and LE edema. GI: Denies dysgeusia. Denies symptoms of stomatitis. Denies dysphagia and odynophagia. Denies reflux, n/v, change in bowel habits and abdominal pain. No symptoms of stomatitis. : Denies dysuria or gross hematuria. No symptoms of bladder outlet obstruction. Endo: Denies hot flashes. Denies polyuria and polydipsia. Denies heat and cold intolerance. Musculoskeletal: Denies bone, back, joint and muscular pain. Derm: Denies rash. Heme: Denies unusual bleeding and unexplained bruising. Psych: Normal mood. The sensitive examination was discussed with the Patient or Patient's Authorized Storage Worker. As applicable, any other physician, advance practice provider, medical student, or other health professional student that will be observing or involved in the sensitive examination for educational or training purposes was discussed with the Patient or Authorized Storage Worker. The Patient or Authorized Storage Worker has agreed to proceed with the sensitive examination. (Sensitive examination includes inspection and/or palpation of the breasts, pelvis, prostate and anorectal regions) Lesvia Girard LPN chaperoned. PHYSICAL EXAM: Vitals: Blood pressure 113/78, pulse 89, temperature 37 ?C (98.6 ?F), temperature source Temporal, height 158 cm (5' 2.21), weight 86.9 kg (191 lb 8 oz), last menstrual period 01/27/2003, SpO2 95%. Well-appearing and in no acute distress. EYES: Sclerae are anicteric bilaterally. BREAST: Right breast--3 small areas of skin abrasion from removing the Steri-Strips. No sign of infection. No axillary adenopathy. NGS/biomarkers/wheat combine driver mutation analyses: [facility] genetic testing negative. ASSESSMENT/PLAN: (C50.412) Breast cancer of upper-outer quadrant of left female breast (HCC) (primary encounter diagnosis) Assessment: -New pT1c(m) pNX M0 ER/OR positive, HER2 negative invasive lobular carcinoma of the right breast. -History of a pT1 (1.9 cm; grade 2; LVI+) pN1a MX ER/OR positive HER2 negative stage IIA invasive ductal carcinoma the left breast. -I had a detailed discussion with patient regarding the adjuvant treatment modalities of breast cancer. I discussed the indication for aromatase inhibitor therapy including the rationale, potential side effects and duration of therapy. Explained to her that when the time comes to begin aromatase inhibitor therapy, will up date DEXA and determine vitamin D level. -I discussed the decision for adjuvant chemotherapy based on traditional clinical and pathologic variables and further explained molecular testing and its role in aiding the decision regarding adjuvant chemotherapy. I recommended an Oncotype DX test and discussed with her how this test is performed and how the results would be used in determining the potential benefi (more content not included)... [facility] 04-16-2024 History of Presen t illness Narrative Diagnosis: 1) Breast cancer. HPI: Patient is a 73 yo female with past medical history significant only for arthritis. She was found to have an [...] nuclear grade 2. ER >90%, strong and OR 60%, weak to moderate. HER2 quantified at [...] An additional 11 lymph nodes were negative. Presents for ongoing oncologic management. Interim history: Received adjuvant radiation to the left breast. That was followed with 5 years of anastrozole completed 03/2021. Recent lumpectomy and sentinel lymph node biopsy for new right sided lobular carcinoma. Pathology reviewed. PMH, medications, social history and family history and allergies personally reviewed by me today. Any changes documented in appropriate section. ROS: Constitutional: Denies episodes of fever and night sweats. Not significantly fatigued. Neuro: Denies ALEXANDER, vertigo, dizziness and imbalance. No symptoms of neuropathy. HEENT: No recent change in voice, vision or hearing. Resp: Denies cough, wheeze and hemoptysis. Denies shortness of breath at rest. Denies PANCHAL. CVS: Denies exertional chest pain, PND, orthopnea and LE edema. GI: Denies dysgeusia. Denies symptoms of stomatitis. Denies dysphagia and odynophagia. Denies reflux, n/v, change in bowel habits and abdominal pain. No symptoms of stomatitis. : Denies dysuria or gross hematuria. No symptoms of bladder outlet obstruction. Endo: Denies hot flashes. Denies polyuria and polydipsia. Denies heat and cold intolerance. Musculoskeletal: Denies bone, back, joint and muscular pain. Derm: Denies rash. Heme: Denies unusual bleeding and unexplained bruising. Psych: Normal mood. The sensitive examination was discussed with the Patient or Patient's Authorized Storage Worker. As applicable, any other physician, advance practice provider, medical student, or other health professional student that will be observing or involved in the sensitive examination for educational or training purposes was discussed with the Patient or Authorized Storage Worker. The Patient or Authorized Storage Worker has agreed to proceed with the sensitive examination. (Sensitive examination includes inspection and/or palpation of the breasts, pelvis, prostate and anorectal regions) Lesvia Girard LPN chaperoned. PHYSICAL EXAM: Vitals: Blood pressure 113/78, pulse 89, temperature 37 C (98.6 F), temperature source Temporal, height 158 cm (5' 2.21), weight 86.9 kg (191 lb 8 oz), last menstrual period 01/27/2003, SpO2 95%. Well-appearing and in no acute distress. EYES: Sclerae are anicteric bilaterally. BREAST: Right breast--3 small areas of skin abrasion from removing the Steri-Strips. No sign of infection. No axillary adenopathy. NGS/biomarkers/wheat combine driver mutation analyses: [facility]. ASSESSMENT/PLAN: (C50.412) Breast cancer of upper-outer quadrant of left female breast (HCC) (primary encounter diagnosis) Assessment: -New pT1c(m) pNX M0 ER/OR positive, HER2 negative invasive lobular carcinoma of the right breast. -History of a pT1 (1.9 cm; grade 2; LVI+) pN1a MX ER/OR positive HER2 negative stage IIA invasive ductal carcinoma the left breast. -I had a detailed discussion with patient regarding the adjuvant treatment modalities of breast cancer. I discussed the indication for aromatase inhibitor therapy including the rationale, potential side effects and duration of therapy. Explained to her that when the time comes to begin aromatase inhibitor therapy, will up date DEXA and determine vitamin D level. -I discussed the decision for adjuvant chemotherapy based on traditional clinical and pathologic variables and further explained molecular testing and its role in aiding the decision regarding adjuvant chemotherapy. I recommended an Oncotype DX test and discussed with her how this test is performed and how the results would be used in determining the potential benefit of adjuvant chemotherapy. Plan: -Referral to Dr. Lopez for opinion on adjuvant radiation. -Oncotype DX testing. -Follow-up after Oncotype Dx resulted. Portions of this documentation were copied and pasted from my previous office visit note dated 01/27/2016 in order to provide a cohesive continuity of the history. The note has been reviewed and edited and updated as necessary. I spent a total of 30 minutes on the date of the service which included preparing to see the patient, [id number] patient care, completing clinical documentation, obtaining and/or reviewing separately obtained history, performing a medically appropriate examination, counseling and educating the patient/family/caregiver, communicating with other HCPs (not separately reported), and communicating results to the patient/family/caregiver. Ibrahima Dhaliwal DO documented in this encounter [facility] 04-15-2024 Note HNO ID: [id number] Author: EDWIN MOTLEY MA Service: ? Author Type: Bookie Type: Progress Notes Filed: 04/15/2024 16:16 Note Text: Scan on 04/10/2024 11:47 AM by ProviderEric PA-C: Consultation - Genetics Edwin Motley MA [facility] 04-15-2024 History of Presen t illness Narrative Scan on 04/10/2024 11:47 AM by Eric Mas PA-C: Consultation - Genetics Edwin Motley MA documented in this encounter [facility] 04-07-2024 Telephone encounter Note ----- Message from Remington Sung MD sent at 04/06/2024 7:31 AM EST ----- Please let her know that her margins were all clear on her lumpectomy. Good news. Patient verbalized understanding of her pathology [facility] 04-07-2024 Telephone encounter Note ----- Message from Remington Sung MD sent at 04/06/2024 7:31 AM EST ----- Please let her know that her margins were all clear on her lumpectomy. Good news. [facility] 04-07-2024 Miscellaneous Notes ----- Message from Remington Sung MD sent at 04/06/2024 7:31 AM EST ----- Please let her know that her margins were all clear on her lumpectomy. Good news. Patient verbalized understanding of her pathology ----- Message from Remington Sung MD sent at 04/06/2024 7:31 AM EST ----- Please let her know that her margins were all clear on her lumpectomy. Good news. Spoke with patient and scheduled in est.complex slot on 04/16 Zayda Joshua She is scheduled for right breast lumpectomy on 04/01. Please schedule with me for establish complex or new patient visit week of April 13. Ibrahima Dhaliwal DO documented in this encounter [facility] 04-02-2024 Telephone encounter Note I called to see how patient is feeling post op lumpectomy on 04/01/24. The patient reports that she is doing quite well. She denies any redness, drainage, fever, chills, or discomfort. I reinforced to call if any changes or she spikes a fever/chills. I reinforced surgery go home instructions and answered any questions to the patient's satisfaction. She is aware of her post op appointment that is scheduled with Dr Sung on 04/30/24 at 8 am. [facility] 04-02-2024 Miscellaneous Notes I called to see how patient is feeling post op lumpectomy on 04/01/24. The patient reports that she is doing quite well. She denies any redness, drainage, fever, chills, or discomfort. I reinforced to call if any changes or she spikes a fever/chills. I reinforced surgery go home instructions and answered any questions to the patient's satisfaction. She is aware of her post op appointment that is scheduled with Dr Sung on 04/30/24 at 8 am. documented in this encounter [facility] 04-01-2024 Note HNO ID: [id number] Author: ?, ?, ? Service: ? Author Type: ? Type: Plan of Care Filed: 04/02/2024 14:52 Note Text: PHARMACY BEDSIDE DELIVERY SERVICE Patient Name: Love Pino The marked outpatient medications were Filled at: [facility] and delivered to the patient's bedside to pt Medication List START taking these medications HYDROcodone-acetaminophen 5-325 mg per tablet Commonly known as: NORCO Take 1-2 tablets by mouth every 4 hours as needed for pain for up to 7 days. delivered CONTINUE taking these medications ALEVE ORAL Biotin 1 mg Tab Cholecalciferol (Vitamin D3) 50 mcg (2,000 unit) Cap COLACE ORAL MUCINEX 600 mg 12 hr tablet Generic drug: guaiFENesin Llirzxff-Alqvquj-Fvfu-Lutein Tab TUMS ORAL You might also be taking other medications not listed above. If you have questions about any of your other medications, talk to the person who prescribed them or your Primary Care Provider. 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 Staffing Anesthesiologist: Nick Dale DO FURNACE HAND: Onelia Barraza CRNA Performed by: KRISTIE Indications and Patient Condition Indications for airway management: anesthesia Preoxygenated: yes anesthesia circuit Patient position: sniffing Method: asleep Cricoid Pressure: No Manual In-Line Stabilization: No Difficult Mask: No Final Airway Details Final airway type: supraglottic airway Number of attempts at approach: 1 Final Supraglottic Airway: i-gel Size 4 Seal Adequate: yes Failed airway: no Unrecognized esophageal intubation: no Airway not difficult SIGNATURE: Onelia Barraza CRNA PATIENT NAME: Love Pino DATE: April 01, 2024 TIME: 12:54 PM CSN: [id number] [facility] 04-01-2024 History of Presen t illness Narrative Radiology Service Progress Note PATIENT NAME: Love Pino DATE OF SERVICE: April 01, 2024 TIME: 10:00 AM PATIENT IDENTITY VERIFICATION COMPLETED USING TWO (2) IDENTIFIERS: Name and Date of confirmed by patient verbally. FALL SCREENING: Has the patient had 2 falls in the last year or 1 fall with injury or currently using an Ambulatory Assistive Device (Walker, Cane, Wheelchair, Crutches, etc.)? No PATIENT GENDER DATA: Female. status: : No status: NO. PATIENT RELEVANT IMPLANT DATA REVIEWED: Not Applicable PATIENT PRESENTS WITH AN IMPLANTABLE OR ATTACHED PIER RUNNER: No RADIOLOGY DEPARTMENT: Ultrasound PERIPHERAL IV DATA: Not applicable SIGNED BY: Camille Glass RDMS April 01, 2024 10:00 AM Radiology Service Progress Note PATIENT NAME: Love Pino DATE OF SERVICE: April 01, 2024 TIME: 10:59 AM PATIENT IDENTITY VERIFICATION COMPLETED USING TWO (2) IDENTIFIERS: Name and Date of confirmed by patient verbally. FALL SCREENING: Has the patient had 2 falls in the last year or 1 fall with injury or currently using an Ambulatory Assistive Device (Walker, Cane, Wheelchair, Crutches, etc.)? No PATIENT GENDER DATA: Female. status: : No status: NO. PATIENT RELEVANT IMPLANT DATA REVIEWED: Not Applicable PATIENT PRESENTS WITH AN IMPLANTABLE OR ATTACHED PIER RUNNER: No RADIOLOGY DEPARTMENT: Mammography PERIPHERAL IV DATA: Not applicable SIGNED BY: RT Norma(R) April 01, 2024 10:59 AM The sensitive examination was discussed with the Patient or Patient's Authorized Storage Worker. As applicable, any other physician, advance practice provider, medical student, or other health professional student that will be observing or involved in the sensitive examination for educational or training purposes was discussed with the Patient or Authorized Storage Worker. The Patient or Authorized Storage Worker has agreed to proceed with the sensitive examination. (Sensitive examination includes inspection and/or palpation of the breasts, pelvis, prostate and anorectal regions) Radiology Service Progress Note PATIENT NAME: Love Pino DATE OF SERVICE: April 01, 2024 TIME: 10:59 AM PATIENT IDENTITY VERIFICATION COMPLETED USING TWO (2) IDENTIFIERS: Name and Date of confirmed by patient verbally. FALL SCREENING: Has the patient had 2 falls in the last year or 1 fall with injury or currently using an Ambulatory Assistive Device (Walker, Cane, Wheelchair, Crutches, etc.)? No PATIENT GENDER DATA: Female. status: : No status: NO. PATIENT RELEVANT IMPLANT DATA REVIEWED: Not Applicable PATIENT PRESENTS WITH AN IMPLANTABLE OR ATTACHED PIER RUNNER: No RADIOLOGY DEPARTMENT: Mammography PERIPHERAL IV DATA: Not applicable SIGNED BY: RT Norma(R) April 01, 2024 10:59 AM The sensitive examination was discussed with the Patient or Patient's Authorized Storage Worker. As applicable, any other physician, advance practice provider, medical student, or other health professional student that will be observing or involved in the sensitive examination for educational or training purposes was discussed with the Patient or Authorized Storage Worker. The Patient or Authorized Storage Worker has agreed to proceed with the sensitive examination. (Sensitive examination includes inspection and/or palpation of the breasts, pelvis, prostate and anorectal regions) documented in this encounter [facility] 04-01-2024 Note HNO ID: [id number] Author: CAMILLE GLASS RDMS Service: Radiology Author Type: Technologist Type: Progress Notes Filed: 04/01/2024 10:01 Note Text: Radiology Service Progress Note PATIENT NAME: Love Pino DATE OF SERVICE: April 01, 2024 TIME: 10:00 AM PATIENT IDENTITY VERIFICATION COMPLETED USING TWO (2) IDENTIFIERS: Name and Date of confirmed by patient verbally. FALL SCREENING: Has the patient had 2 falls in the last year or 1 fall with injury or currently using an Ambulatory Assistive Device (Walker, Cane, Wheelchair, Crutches, etc.)? No PATIENT GENDER DATA: Female. status: : No status: NO. PATIENT RELEVANT IMPLANT DATA REVIEWED: Not Applicable PATIENT PRESENTS WITH AN IMPLANTABLE OR ATTACHED PIER RUNNER: No RADIOLOGY DEPARTMENT: Ultrasound PERIPHERAL IV DATA: Not applicable SIGNED BY: Camille Glass RDMS April 01, 2024 10:00 AM [facility] 04-01-2024 Note HNO ID: [id number] Author: KIMBERLY JONES RT(R) Service: ? Author Type: Technologist Type: Progress Notes Filed: 04/01/2024 10:59 Note Text: Radiology Service Progress Note PATIENT NAME: Love Pino DATE OF SERVICE: April 01, 2024 TIME: 10:59 AM PATIENT IDENTITY VERIFICATION COMPLETED USING TWO (2) IDENTIFIERS: Name and Date of confirmed by patient verbally. FALL SCREENING: Has the patient had 2 falls in the last year or 1 fall with injury or currently using an Ambulatory Assistive Device (Walker, Cane, Wheelchair, Crutches, etc.)? No PATIENT GENDER DATA: Female. status: : No status: NO. PATIENT RELEVANT IMPLANT DATA REVIEWED: Not Applicable PATIENT PRESENTS WITH AN IMPLANTABLE OR ATTACHED PIER RUNNER: No RADIOLOGY DEPARTMENT: Mammography PERIPHERAL IV DATA: Not applicable SIGNED BY: RT Norma(Nathalia) April 01, 2024 10:59 AM [facility] 04-01-2024 Note HNO ID: [id number] Author: KIMBERLY JONES RT(Nathalia) Service: ? Author Type: Technologist Type: Progress Notes Filed: 04/01/2024 10:59 Note Text: The sensitive examination was discussed with the Patient or Patient's Authorized Storage Worker. As applicable, any other physician, advance practice provider, medical student, or other health professional student that will be observing or involved in the sensitive examination for educational or training purposes was discussed with the Patient or Authorized Storage Worker. The Patient or Authorized Storage Worker has agreed to proceed with the sensitive examination. (Sensitive examination includes inspection and/or palpation of the breasts, pelvis, prostate and anorectal regions) [facility] 04-01-2024 Note HNO ID: [id number] Author: KIMBERLY JONES RT(Nathalia) Service: ? Author Type: Technologist Type: Progress Notes Filed: 04/01/2024 11:01 Note Text: Radiology Service Progress Note PATIENT NAME: Love Pino DATE OF SERVICE: April 01, 2024 TIME: 10:59 AM PATIENT IDENTITY VERIFICATION COMPLETED USING TWO (2) IDENTIFIERS: Name and Date of confirmed by patient verbally. FALL SCREENING: Has the patient had 2 falls in the last year or 1 fall with injury or currently using an Ambulatory Assistive Device (Walker, Cane, Wheelchair, Crutches, etc.)? No PATIENT GENDER DATA: Female. status: : No status: NO. PATIENT RELEVANT IMPLANT DATA REVIEWED: Not Applicable PATIENT PRESENTS WITH AN IMPLANTABLE OR ATTACHED PIER RUNNER: No RADIOLOGY DEPARTMENT: Mammography PERIPHERAL IV DATA: Not applicable SIGNED BY: RT Norma(R) April 01, 2024 10:59 AM [facility] 04-01-2024 Note HNO ID: [id number] Author: KIMBERLY JONES RT(R) Service: ? Author Type: Technologist Type: Progress Notes Filed: 04/01/2024 11:01 Note Text: The sensitive examination was discussed with the Patient or Patient's Authorized Storage Worker. As applicable, any other physician, advance practice provider, medical student, or other health professional student that will be observing or involved in the sensitive examination for educational or training purposes was discussed with the Patient or Authorized Storage Worker. The Patient or Authorized Storage Worker has agreed to proceed with the sensitive examination. (Sensitive examination includes inspection and/or palpation of the breasts, pelvis, prostate and anorectal regions) [facility] 04-01-2024 Nurse procedure note 5CM Right breast needle localization inserted.. [facility] 04-01-2024 Miscellaneous Notes 5CM Right breast needle localization inserted.. documented in this encounter [facility] 03-31-2024 Note HNO ID: [id number] Author: RENETTA AHUMADA RN Service: ? Author Type: Registered Nurse Type: Progress Notes Filed: 03/31/2024 15:09 Note Text: MEDICATION INSTRUCTIONS PRIOR TO SURGERY Please read below carefully for your personalized instructions. Medications: If you are on blood thinner or anticoagulants including aspirin, please confirm with your surgical team on when to stop these medications. Unless instructed differently by your surgical team, stay on all of your medications until your surgery. Pre-Surgery Med Instructions Medication Instructions guaiFENesin (MUCINEX) 600 mg 12 hr tablet Follow Surgeon's instructions Biotin 1 mg tab Follow Surgeon's instructions naproxen sodium (ALEVE ORAL) Follow Surgeon's instructions docusate sodium (COLACE ORAL) PRN if needed CALCIUM CARBONATE (TUMS ORAL) Follow Surgeon's instructions Cholecalciferol, Vitamin D3, 50 mcg (2,000 unit) cap Follow Surgeon's instructions Ewckwxll-Wnbfqho-Nrlz-Lutein tab Follow Surgeon's instructions If you have any medication changes between receiving these instructions and your surgery date, please provide this updated information with the nurse who calls you the week day prior to your surgical procedure so we can update your list and provide you with updated instructions for the morning of your procedure. PRE-PROCEDURE INSTRUCTIONS TO PREPARE FOR YOUR PROCEDURE: Your arrival time for your procedure is 0715. Do NOT eat any solid foods after MIDNIGHT the night prior to your procedure - this includes gum or mints. You can drink clear liquids* up until 0515 , which is 2 hours before your arrival time. *Clear liquids = water, carbohydrate drink (sports drink that is clear or yellow in color), Ensure Pre-Surgery (given by VALERI or your DrJovan), fruit juice without pulp (apple/cranberry), clear tea, black coffee (no cream). NO CARBONATED BEVERAGES AND NO ALCOHOL. Shower the morning of the procedure, put on clean clothes, and have clean sheets for your bed to help prevent infection after your procedure. Leave all valuables such as jewelry including rings, piercings, wallets, and purses at home. Wear comfortable, loose-fitting clothing. If you wear glasses or contacts, please bring a case. SPECIAL INSTRUCTIONS: If instructed, bring your first voided urine specimen with you. If you were provided skin preparation to use prior to your procedure, complete this as directed.. This should be consumed quickly (in less than 5 minutes, rather than sipped over time) If a bowel preparation has been ordered by your physician, it is very important to follow the bowel prep instructions or your procedure may need to be rescheduled. If you use crutches or a walker, bring them with you. If you have a home CPAP/BIPAP machine, bring it with you. If you were instructed to complete a fleets enema or bowel prep, complete as directed. Bring copy of Living Will/Power of Editorial Specialist. Do not smoke or chew. If you use tobacco, quit or at least cut down before surgery. Do not smoke or chew after midnight the day before your surgery. This effects bleeding, infection, healing, and so much more. Do not take any Diet or Herbal Supplements 2 weeks prior to your surgery date. Please notify your physician if there is any change in your physical condition such as a cold, cough, fever, sore throat, or skin irritation near the surgical site. Visitors under the age of 14 are restricted in the Surgery Center. UPON ARRIVAL: Access to [facility] (the glass building) is located on [address] Set Up Mechanic parking is available for your convenience from 5am-5pm- there is a $5.00 charge for this service. Take the elevators directly inside the entrance to the 1st Floor Surgery Lobby. Sign in at the podium located to the left when you get off the elevators. A payment may be expected at the time of service. One visitor may come back to the preoperative area with you. The preoperative staff will be reviewing your medical history, please let them know if you prefer not to have a visitor with you during this time. Once you are ready for your procedure, two visitors at a time are permitted in your preprocedure room. [facility] 03-30-2024 Note HNO ID: [id number] Author: DAVID JOHNSON APRN.HANH Service: ? Author Type: Nurse Practitioner Type: Progress Notes Filed: 03/30/2024 12:25 Note Text: Summary: dos meds MEDICATION INSTRUCTIONS PRIOR TO SURGERY Please read below carefully for your personalized instructions. Medications: If you are on blood thinner or anticoagulants including aspirin, please confirm with your surgical team on when to stop these medications. Unless instructed differently by your surgical team, stay on all of your medications until your surgery. Pre-Surgery Med Instructions Medication Instructions guaiFENesin (MUCINEX) 600 mg 12 hr tablet Follow Surgeon's instructions Biotin 1 mg tab Follow Surgeon's instructions naproxen sodium (ALEVE ORAL) Follow Surgeon's instructions docusate sodium (COLACE ORAL) PRN if needed CALCIUM CARBONATE (TUMS ORAL) Follow Surgeon's instructions Cholecalciferol, Vitamin D3, 50 mcg (2,000 unit) cap Follow Surgeon's instructions Ahxlofpb-Wblhqpg-Zaha-Lutein tab Follow Surgeon's instructions If you have any medication changes between receiving these instructions and your surgery date, please provide this updated information with the nurse who calls you the week day prior to your surgical procedure so we can update your list and provide you with updated instructions for the morning of your procedure. [facility] 03-23-2024 Note HNO ID: [id number] Author: GIANA VELASCO RN Service: ? Author Type: Registered Nurse Type: Progress Notes Filed: 03/23/2024 14:17 Note Text: AMBULATORY PATIENT EDUCATION NOTE PRE-OP TEACHING TOPIC: Breast surgery - lumpectomy with needle loc PROCEDURE: Right breast lumpectomy with needle localization READINESS TO LEARN COGNITIVE ABILITY: Alert and oriented MOTIVATION TO LEARN: Eager FAMILY SUPPORT: High - Very involved in pt care INSTRUCTION PROVIDED TO: Patient and family member PATIENT LEARNS BEST BY: Multiple Methods FACTORS AFFECTING LEARNING: None PHYSICAL LIMITATIONS AFFECTING LEARNING: None LEARNING RESPONSE DIAGNOSIS: invasive lobular carcinoma ER/OR +; HER2 - METHOD OF INSTRUCTION: Individual instruction PATIENT / FAMILY RESPONSE: Verbalizes understanding of: Diagnosis, presurgical instructions, day of surgery procedures, and post op instructions. FOLLOW-UP PLAN: post op with Dr Sung is scheduled and patient is aware of the date and time. SUPPLEMENTAL MATERIAL: breast cancer journey guide and cancer center binder REFERRAL (RECOMMENDATION): None; Patient has an established medical oncologist in [place], Dr Vail and will also be seen in [place] for her radiation oncologist. She formally had breast cancer in her left breast and had surgery with Dr Sung. She was also on arimidex x 5 years and received radiation to the right breast. She is very well versed in these areas. Electronically Signed By: Giana Velasco RN In Department: [facility] BREAST SURGERY [facility] 03-23-2024 History of Presen t illness Narrative AMBULATORY PATIENT EDUCATION NOTE PRE-OP TEACHING TOPIC: Breast surgery - lumpectomy with needle loc PROCEDURE: Right breast lumpectomy with needle localization READINESS TO LEARN COGNITIVE ABILITY: Alert and oriented MOTIVATION TO LEARN: Eager FAMILY SUPPORT: High - Very involved in pt care INSTRUCTION PROVIDED TO: Patient and family member PATIENT LEARNS BEST BY: Multiple Methods FACTORS AFFECTING LEARNING: None PHYSICAL LIMITATIONS AFFECTING LEARNING: None LEARNING RESPONSE DIAGNOSIS: invasive lobular carcinoma ER/OR +; HER2 - METHOD OF INSTRUCTION: Individual instruction PATIENT / FAMILY RESPONSE: Verbalizes understanding of: Diagnosis, presurgical instructions, day of surgery procedures, and post op instructions. FOLLOW-UP PLAN: post op with Dr Sung is scheduled and patient is aware of the date and time. SUPPLEMENTAL MATERIAL: breast cancer journey guide and cancer center binder REFERRAL (RECOMMENDATION): None; Patient has an established medical oncologist in [place], Dr Vail and will also be seen in [place] for her radiation oncologist. She formally had breast cancer in her left breast and had surgery with Dr Sung. She was also on arimidex x 5 years and received radiation to the right breast. She is very well versed in these areas. Electronically Signed By: Giana Velasco RN In Department: [facility] BREAST SURGERY documented in this encounter [facility] 03-19-2024 Telephone encounter Note Spoke with patient and scheduled in est.complex slot on 04/16 Zayda Joshua [facility] 03-19-2024 Note HNO ID: [id number] Author: KALEIGH CANALES MA Service: ? Author Type: Bookie Type: Progress Notes Filed: 03/19/2024 15:30 Note Text: Scan on 03/19/2024 11:55 AM by ProviderEric PA-C: Consultation - Genetics [facility] 03-19-2024 History of Presen t illness Narrative Scan on 03/19/2024 11:55 AM by ProviderEric PA-C: Consultation - Genetics documented in this encounter [facility] 03-19-2024 Telephone encounter Note She is scheduled for right breast lumpectomy on 04/01. Please schedule with me for establish complex or new patient visit week of April 13. Ibrahima Dhaliwal DO [facility] Work Phone: 03-19-2024 Note HNO ID: [id number] Author: FCO BENEDICT LPN Service: ? Author Type: LICENSED NURSE Type: Progress Notes Filed: 03/19/2024 07:21 Note Text: Scan on 03/18/2024 2:43 PM by ProviderEric PA-C: Consultation - Cardiology [facility] 03-19-2024 History of Presen t illness Narrative Scan on 03/18/2024 2:43 PM by Eric Mas PA-C: Consultation - Cardiology documented in this encounter [facility] 03-18-2024 Telephone encounter Note ----- Message from Remington Sung MD sent at 03/18/2024 7:02 AM EST ----- Please let her know that her axillary ultrasound showed normal lymph nodes. Great news. Patient aware of her normal nodes. Surgery scheduled 04/01/24 patient verbalized understanding [facility] 03-18-2024 Miscellaneous Notes ----- Message from Remington Sung MD sent at 03/18/2024 7:02 AM EST ----- Please let her know that her axillary ultrasound showed normal lymph nodes. Great news. Patient aware of her normal nodes. Surgery scheduled 04/01/24 patient verbalized understanding documented in this encounter [facility] 03-17-2024 Note Normal sinus rhythm Inferior infarct , age undetermined Poor anterior R-wave progression Abnormal ECG Compared to prior tracing Inferior infarct is now present Confirmed by RAQUEL SHINE, [facility] ([id number]) on 03/17/2024 9:57:52 PM [facility] 03-17-2024 History of Presen t illness Narrative Summary: RAD EXAM Radiology Service Progress Note PATIENT NAME: Love Pino DATE OF SERVICE: March 17, 2024 TIME: 3:07 PM PATIENT IDENTITY VERIFICATION COMPLETED USING TWO (2) IDENTIFIERS: Name and Date of confirmed by patient verbally. FALL SCREENING: Has the patient had 2 falls in the last year or 1 fall with injury or currently using an Ambulatory Assistive Device (Walker, Cane, Wheelchair, Crutches, etc.)? No PATIENT GENDER DATA: Female. status: : No status: N/A PATIENT RELEVANT IMPLANT DATA REVIEWED: Not Applicable PATIENT PRESENTS WITH AN IMPLANTABLE OR ATTACHED PIER RUNNER: N/A RADIOLOGY DEPARTMENT: General X-ray: Exam(s) Completed: Chest X-Ray PERIPHERAL IV DATA: Not applicable SIGNED BY: LINNETTE Nguyen) March 17, 2024 3:07 PM documented in this encounter [facility] 03-17-2024 Note HNO ID: [id number] Author: BAMBI FIELD RT(R) Service: Radiology Author Type: Technologist Type: Progress Notes Filed: 03/17/2024 15:07 Note Text: Summary: RAD EXAM Radiology Service Progress Note PATIENT NAME: Love Pino DATE OF SERVICE: March 17, 2024 TIME: 3:07 PM PATIENT IDENTITY VERIFICATION COMPLETED USING TWO (2) IDENTIFIERS: Name and Date of confirmed by patient verbally. FALL SCREENING: Has the patient had 2 falls in the last year or 1 fall with injury or currently using an Ambulatory Assistive Device (Walker, Cane, Wheelchair, Crutches, etc.)? No PATIENT GENDER DATA: Female. status: : No status: N/A PATIENT RELEVANT IMPLANT DATA REVIEWED: Not Applicable PATIENT PRESENTS WITH AN IMPLANTABLE OR ATTACHED PIER RUNNER: N/A RADIOLOGY DEPARTMENT: General X-ray: Exam(s) Completed: Chest X-Ray PERIPHERAL IV DATA: Not applicable SIGNED BY: Bambi Field RT(R) March 17, 2024 3:07 PM [facility] 03-17-2024 History of Presen t illness Narrative Radiology Service Progress Note PATIENT NAME: Love Pino DATE OF SERVICE: March 17, 2024 TIME: 2:23 PM PATIENT IDENTITY VERIFICATION COMPLETED USING TWO (2) IDENTIFIERS: Name and Date of confirmed by patient verbally. FALL SCREENING: Has the patient had 2 falls in the last year or 1 fall with injury or currently using an Ambulatory Assistive Device (Walker, Cane, Wheelchair, Crutches, etc.)? No PATIENT GENDER DATA: Female. status: : No status: NO. PATIENT RELEVANT IMPLANT DATA REVIEWED: Not Applicable PATIENT PRESENTS WITH AN IMPLANTABLE OR ATTACHED PIER RUNNER: No RADIOLOGY DEPARTMENT: Ultrasound PERIPHERAL IV DATA: Not applicable SIGNED BY: Mick Horton RT(R) March 17, 2024 2:23 PM documented in this encounter [facility] 03-17-2024 Note HNO ID: [id number] Author: MICK HORTON RT(R) Service: Radiology Author Type: Technologist Type: Progress Notes Filed: 03/17/2024 14:23 Note Text: Radiology Service Progress Note PATIENT NAME: Love Pino DATE OF SERVICE: March 17, 2024 TIME: 2:23 PM PATIENT IDENTITY VERIFICATION COMPLETED USING TWO (2) IDENTIFIERS: Name and Date of confirmed by patient verbally. FALL SCREENING: Has the patient had 2 falls in the last year or 1 fall with injury or currently using an Ambulatory Assistive Device (Walker, Cane, Wheelchair, Crutches, etc.)? No PATIENT GENDER DATA: Female. status: : No status: NO. PATIENT RELEVANT IMPLANT DATA REVIEWED: Not Applicable PATIENT PRESENTS WITH AN IMPLANTABLE OR ATTACHED PIER RUNNER: No RADIOLOGY DEPARTMENT: Ultrasound PERIPHERAL IV DATA: Not applicable SIGNED BY: RT Leandro(R) March 17, 2024 2:23 PM [facility] 03-16-2024 Telephone encounter Note Spoke with pt. Informed Her surgical pathology was copied to Dr. Dhaliwal by Dr. Meeks. New small right-sided breast cancer. Breast cancer. She saw a surgeon at [facility] who ordered an ultrasound of the right axilla which is scheduled for Saturday. Surgical plan will follow results of that. Needs to see Dr. Dhaliwal as est complex in about 6-8 weeks. Pt. Voiced understanding and will contact office to schedule that appt. After she is aware of her surgical plan. Irlanda Ramirez LPN [facility] 03-16-2024 Miscellaneous Notes Spoke with pt. Informed Her surgical pathology was copied to Dr. Dhaliwal by Dr. Meeks. New small right-sided breast cancer. Breast cancer. She saw a surgeon at [facility] who ordered an ultrasound of the right axilla which is scheduled for Saturday. Surgical plan will follow results of that. Needs to see Dr. Dhaliwal as est complex in about 6-8 weeks. Pt. Voiced understanding and will contact office to schedule that appt. After she is aware of her surgical plan. Irlanda Ramirez LPN Her surgical pathology was copied to me by Dr. Meeks. New small right-sided breast cancer. Breast cancer. She saw a surgeon at [facility] who ordered an ultrasound of the right axilla which is scheduled for Saturday. Surgical plan will follow results of that. Needs to see me as est complex in about 6-8 weeks. Ibrahima Dhaliwal DO documented in this encounter [facility] 03-15-2024 Telephone encounter Note Her surgical pathology was copied to me by Dr. Meeks. New small right-sided breast cancer. Breast cancer. She saw a surgeon at [facility] who ordered an ultrasound of the right axilla which is scheduled for Saturday. Surgical plan will follow results of that. Needs to see me as est complex in about 6-8 weeks. Ibrahima Dhaliwal DO [facility] Work Phone: 03-10-2024 Telephone encounter Note Summary: [facility] referral Faxed all info To [facility] to set up appointment for patient [facility] 03-10-2024 Miscellaneous Notes Summary: [facility] referral Faxed all info To [facility] to set up appointment for patient documented in this encounter [facility] 03-09-2024 History and physical note Images from the original note were not included. March 09, 2024 Love Pino 1950 [id number] NOOKSACK: This is a 73-year-old female that I first met way back in November 2015 when she was diagnosed with an invasive duct cancer in the upper outer left breast. She underwent needle localized partial mastectomy with sentinel node biopsy and completion axillary node dissection. One lymph node was involved. She did not require chemotherapy but she did take anastrozole for 5 years. She also completed radiation therapy. She has been doing well with no symptoms in either breast. She had a mammogram done on 01/03/2024 which showed a new mass density in the upper outer right breast which on ultrasound measured 8 mm. It was felt to be suspicious and biopsy was recommended. Unfortunately, they did not look at her lymph nodes in the right axilla. She underwent this biopsy recently and it showed a grade 2 infiltrating lobular carcinoma. Estrogen receptors were strongly positive at +3/90%. Progesterone receptors were also strongly positive at +3/95%. HER2 receptor was negative. She does have, in addition to her history of breast cancer on the opposite side, a family history of breast cancer in her mother. The patient came in today with her [id number] to discuss her treatment options for this new cancer. I did review her recent mammogram images with the patient and her [id number]. I also made them a copy of her pathology report and reviewed that with them as well. PAST MEDICAL HISTORY PAST MEDICAL HISTORY Diagnosis Date Arthritis Breast [...] insufficiency (chronic) (peripheral) 03/09/2019 PAST SURGICAL HISTORY PAST SURGICAL HISTORY Procedure Laterality Date BREAST SURGERY HX Left lumpectomy, followed by radiation and pills CARPAL TUNNEL 2014 Bilateral COLONOSCOPY 2017 repeat 5 yrs COLONOSCOPY FLX DX W/COLLJ SPEC WHEN PFRMD 12/19/2020 DILATION & CURETTAGE DX&/THER NONOBSTETRIC 1980 Dilation & curettage KNEE SURGERY HX Right 08/01/2023 Total MASTECTOMY, PARTIAL Left 01/03/2016 lymph node bx(13) PAST SURGICAL HISTORY OF PAST SURGICAL HISTORY OF 03/2021 vaginal hysterectomy, ovaries remain TONSILLECTOMY HX denies FAMILY HISTORY FAMILY HISTORY Problem Relation Age of Onset Breast Cancer Mother 57 age 60 Diabetes Father Heart Father GI Father bleeding ulcers No Known Problems Sister Parkinson s Disease Sister No Known Problems Sister No Known Problems Sister Cancer Brother age 59 Lymphoma/liver disease No Known Problems Brother No Known Problems Brother other (Thyroid or Thraot cancer) Maternal Grandmother No Known Problems Maternal Grandfather other (Heart Condition) Paternal Grandmother other (Heart Condition) Paternal Grandfather Colon Cancer Maternal Aunt Colon Cancer Maternal Uncle SOCIAL HISTORY Social History Tobacco Use Smoking status: Never Smokeless tobacco: Never Vaping Use Vaping status: Never Used Substance Use Topics Alcohol use: Yes Comment: wine Drug use: Never MEDICATIONS Current Outpatient Medications Medication Sig Dispense Refill guaiFENesin (MUCINEX) 600 mg 12 hr tablet Take 1,200 mg by mouth once daily. Biotin 1 mg tab Take 1 tablet by mouth every other day. naproxen sodium (ALEVE ORAL) Take 1 tablet by mouth two times a day. docusate sodium (COLACE ORAL) Take 1 tablet by mouth once daily. CALCIUM CARBONATE (TUMS ORAL) Take 1-2 tablets by mouth once daily. Cholecalciferol, Vitamin D3, 50 mcg (2,000 unit) cap Take 1 capsule by mouth once daily. Ekehdnyi-Owqmros-Ujig-Lutein tab Take 1 tablet by mouth once daily. No current facility-administered medications for this visit. ALLERGIES Penicillin and Sulfa (Sulfonamide Antibiotics) REVIEW OF SYSTEMS: GENERAL: No fever/chills. No unusual weight change. EYES: No blurring or diplopia. No drainage. No unusual vision loss. Wears corrective lenses. EARS: No earache. No drainage. No hearing loss. NOSE: No acute congestion or drainage. THROAT: No sore throat. No difficulty swallowing. CARDIAC: No chest pains or palpitations. She did develop some postoperative mild lymphedema in her left upper extremity for which she wore a garment in the past but she has not used it in some time. She feels like the lymphedema is unchanged over time. PULMONARY: No cough, wheezing, shortness of breath, or hemoptysis. BREAST: See history. No masses, redness or dimpling of the skin, or nipple discharge. GASTROINTESTINAL: No nausea or vomiting. No diarrhea. No constipation. No change in bowel habits. No abdominal pain. No blood in stool. No dark stool. No jaundice. GENITOURINARY: No dysuria or increased urinary frequency. No blood in the urine. No unusual vaginal bleeding. MUSCULOSKELETAL: Some arthritic joint achiness. No muscle weakness. No long bone pain. NEUROLOGIC: No transient paralysis. No weakness. No paresthesias. No seizures. No syncope. HEMATOLOGIC/LYMPHATIC: No abnormal bruising or bleeding. No enlarged nodes. PSYCH: No anxiety or depression. The sensitive examination was discussed with the Patient or Patient's Authorized Storage Worker. As applicable, any other physician, advance practice provider, medical student, or other health professional student that will be observing or involved in the sensitive examination for educational or training purposes was discussed with the Patient or Authorized Storage Worker. The Patient or Authorized Storage Worker has agreed to proceed with the sensitive examination. (Sensitive examination includes inspection and/or palpation of the breasts, pelvis, prostate and anorectal regions) PHYSICAL EXAM: BP 124/80 Pulse 89 Resp 14 Wt 190 lb 14.4 oz (86.6kg) LMP 01/27/2003 GENERAL: Alert and oriented. No acute distress. SKIN: Warm and dry. No jaundice. HEAD: Normocephalic and atraumatic. EYES: Pupils equal, round, and reactive to light. Extraocular movements intact. No scleral icterus. Wearing glasses. PHARYNX: Clear. NECK: No cervical or supraclavicular lymphadenopathy. Thyroid palpably normal. Carotids 2+ bilaterally without bruits. Supple neck. HEART: Normal sinus rhythm without gallop or murmur. LUNGS: Full and clear bilaterally with no rales, wheezes, or rhonchi. BREASTS: She has changes in her left breast consistent with prior lumpectomy and radiation. There are no focal dominant masses palpable on either side. There is no nipple discharge. There is no axillary or supraclavicular lymphadenopathy. ABDOMEN: Soft and non tender. No distention. Normal bowel sounds. No mass or organomegaly. EXTREMITIES: No cyanosis. She does have mild lymphedema in her left upper extremity. I encouraged her to keep a close watch of this and if it begins worsening to get back in a sleeve. NEUROLOGIC: Cranial nerves II-XII grossly intact. Grossly intact motor and sensory exam. DIAGNOSTICS: Her recent breast imaging was personally reviewed. Her recent pathology results were personally reviewed. Old notes from her prior surgeries and follow-up were reviewed as well. IMPRESSION: (C50.411) 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) (primary encounter diagnosis) (Z17.0) Estrogen receptor positive status (ER+) (Z85.3) Personal history of malignant neoplasm of breast (C50.412) 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)-2015 PLAN: We spent 105 minutes today performing a history and physical exam and discussing the biopsy results and the treatment options. The options for treatment locally include mastectomy, with or without reconstruction, versus lumpectomy, possibly combined with radiation therapy depending on radiologic evaluation of her axillary lymph nodes. I explained that these two options are equivalent, with regards to the overall survival rate. Lumpectomy has the advantage of providing better cosmesis, but sometimes requires completion of radiation therapy, again depending on her radiologic lymph node assessment. I discussed potential side effects of radiation therapy (which she understands well, having had radiation on the left side in the past), which are predominantly local skin effects such as sun burning, increased sensitivity, skin thickening/darkening, et cetera. I briefly discussed reconstruction, should she desire mastectomy and explained that she would need to see a plastic surgeon. Generally, the reconstruction can be done at the same time as the mastectomy. We also discussed the management of lymph nodes. Once again, evaluation of her lymph nodes with ultrasound will be critical in determining the need for lymph node sampling. If her nodes are radiologically normal, I would not recommend any lymph node sampling. If there are any abnormalities, then she might need a needle biopsy of any abnormal appearing nodes and then further lymph node sampling at the time of her definitive surgery. I am hopeful that her nodes will be normal and she will not need anything done, but we will certainly need to await that ultrasound. Since this is a?, I did discuss sentinel lymph node biopsy and lymph node dissection. She does have some prior knowledge from her prior surgical procedure. However, our management of positive nodes at the time of sentinel node biopsy has also changed since then. I explained sentinel lymph biopsy to her in detail. I explained the limitation of the procedure, which include the possibility that no sentinel lymph nodes could be found (approximately 10%), and that the preliminary look at the lymph nodes at the time of surgery could be wrong, necessitating return to the operating room. She understands that if the preliminary testing of the lymph nodes at the time of her surgery showed metastatic cancer and she chooses mastectomy, that we would proceed with full lymph node dissection. If she decides for breast preservation, management of the full axilla will depend on the degree of involvement on frozen section. She understands that the goal of sentinel lymph node biopsy is to prevent lymphedema in patients that have no lymph node metastases. I am hopeful that ultrasound of her axilla will be negative and she will not require any lymph node sampling at all. I also discussed the potential need for adjuvant therapy. I explained that it would be critically important for her to take hormonal therapy if we are planning to eliminate both lymph node sampling and radiation from the equation. Without the hormonal therapy, there is just simply no data to support eliminating lymph node sampling and radiation. She understands this very well. I told her that I would want her to follow-up with her medical oncologist for an opinion regarding that. Lastly we talked about genetic testing. She has now had bilateral breast cancer and in addition her mother had breast cancer. It does not appear that she had genetic testing before, so I would recommend this be done. I do not think it is going to change what she does for herself, but it would be important for her sons and her grandchildren to have this information. Questions were answered, and literature was provided. She would like breast preservation so we will begin making plans for a needle localized partial mastectomy. We will arrange for her genetic testing. We will also arrange for her ultrasound of the axilla to be done ZACHARY. I spent 105 minutes preparing to see the patient, [id number] patient care, performing a medically appropriate examination, counseling and educating the patient/family/caregiver, ordering medications, tests, or procedures, completing clinical documentation, and communicating results to the patient/family/caregiver Consultation requested by Dr. Saleh and Dr. Dhaliwal for an opinion regarding new diagnosis of right breast cancer. My final recommendations will be communicated back to the requesting physician by way of shared Medical record or letter to requesting physician via US mail. Remington Sung MD [facility] 03-09-2024 History and physical note Images from the original note were not included. March 09, 2024 Love Pino 1950 [id number] NOOKSACK: This is a 73-year-old female that I first met way back in November 2015 when she was diagnosed with an invasive duct cancer in the upper outer left breast. She underwent needle localized partial mastectomy with sentinel node biopsy and completion axillary node dissection. One lymph node was involved. She did not require chemotherapy but she did take anastrozole for 5 years. She also completed radiation therapy. She has been doing well with no symptoms in either breast. She had a mammogram done on 01/03/2024 which showed a new mass density in the upper outer right breast which on ultrasound measured 8 mm. It was felt to be suspicious and biopsy was recommended. Unfortunately, they did not look at her lymph nodes in the right axilla. She underwent this biopsy recently and it showed a grade 2 infiltrating lobular carcinoma. Estrogen receptors were strongly positive at +3/90%. Progesterone receptors were also strongly positive at +3/95%. HER2 receptor was negative. She does have, in addition to her history of breast cancer on the opposite side, a family history of breast cancer in her mother. The patient came in today with her [id number] to discuss her treatment options for this new cancer. I did review her recent mammogram images with the patient and her [id number]-ism. I also made them a copy of her pathology report and reviewed that with them as well. PAST MEDICAL HISTORY PAST MEDICAL HISTORY Diagnosis Date Arthritis Breast [...] insufficiency (chronic) (peripheral) 03/09/2019 PAST SURGICAL HISTORY PAST SURGICAL HISTORY Procedure Laterality Date BREAST SURGERY HX Left lumpectomy, followed by radiation and pills CARPAL TUNNEL 2013 Bilateral COLONOSCOPY 2016 repeat 5 yrs COLONOSCOPY FLX DX W/COLLJ SPEC WHEN PFRMD 12/19/2020 DILATION & CURETTAGE DX&/THER NONOBSTETRIC 1980 Dilation & curettage KNEE SURGERY HX Right 08/01/2023 Total MASTECTOMY, PARTIAL Left 01/03/2016 lymph node bx(13) PAST SURGICAL HISTORY OF PAST SURGICAL HISTORY OF 03/2021 vaginal hysterectomy, ovaries remain TONSILLECTOMY HX denies FAMILY HISTORY FAMILY HISTORY Problem Relation Age of Onset Breast Cancer Mother 57 age 60 Diabetes Father Heart Father GI Father bleeding ulcers No Known Problems Sister Parkinson s Disease Sister No Known Problems Sister No Known Problems Sister Cancer Brother age 59 Lymphoma/liver disease No Known Problems Brother No Known Problems Brother other (Thyroid or Thraot cancer) Maternal Grandmother No Known Problems Maternal Grandfather other (Heart Condition) Paternal Grandmother other (Heart Condition) Paternal Grandfather Colon Cancer Maternal Aunt Colon Cancer Maternal Uncle SOCIAL HISTORY Social History Tobacco Use Smoking status: Never Smokeless tobacco: Never Vaping Use Vaping status: Never Used Substance Use Topics Alcohol use: Yes Comment: wine </= 2/month Drug use: Never MEDICATIONS Current Outpatient Medications Medication Sig Dispense Refill guaiFENesin (MUCINEX) 600 mg 12 hr tablet Take 1,200 mg by mouth once daily. Biotin 1 mg tab Take 1 tablet by mouth every other day. naproxen sodium (ALEVE ORAL) Take 1 tablet by mouth two times a day. docusate sodium (COLACE ORAL) Take 1 tablet by mouth once daily. CALCIUM CARBONATE (TUMS ORAL) Take 1-2 tablets by mouth once daily. Cholecalciferol, Vitamin D3, 50 mcg (2,000 unit) cap Take 1 capsule by mouth once daily. Pyxlwoat-Xfwgyul-Ywdj-Lutein tab Take 1 tablet by mouth once daily. No current facility-administered medications for this visit. ALLERGIES Penicillin and Sulfa (Sulfonamide Antibiotics) REVIEW OF SYSTEMS: GENERAL: No fever/chills. No unusual weight change. EYES: No blurring or diplopia. No drainage. No unusual vision loss. Wears corrective lenses. EARS: No earache. No drainage. No hearing loss. NOSE: No acute congestion or drainage. THROAT: No sore throat. No difficulty swallowing. CARDIAC: No chest pains or palpitations. She did develop some postoperative mild lymphedema in her left upper extremity for which she wore a garment in the past but she has not used it in some time. She feels like the lymphedema is unchanged over time. PULMONARY: No cough, wheezing, shortness of breath, or hemoptysis. BREAST: See history. No masses, redness or dimpling of the skin, or nipple discharge. GASTROINTESTINAL: No nausea or vomiting. No diarrhea. No constipation. No change in bowel habits. No abdominal pain. No blood in stool. No dark stool. No jaundice. GENITOURINARY: No dysuria or increased urinary frequency. No blood in the urine. No unusual vaginal bleeding. MUSCULOSKELETAL: Some arthritic joint achiness. No muscle weakness. No long bone pain. NEUROLOGIC: No transient paralysis. No weakness. No paresthesias. No seizures. No syncope. HEMATOLOGIC/LYMPHATIC: No abnormal bruising or bleeding. No enlarged nodes. PSYCH: No anxiety or depression. The sensitive examination was discussed with the Patient or Patient's Authorized Storage Worker. As applicable, any other physician, advance practice provider, medical student, or other health professional student that will be observing or involved in the sensitive examination for educational or training purposes was discussed with the Patient or Authorized Storage Worker. The Patient or Authorized Storage Worker has agreed to proceed with the sensitive examination. (Sensitive examination includes inspection and/or palpation of the breasts, pelvis, prostate and anorectal regions) PHYSICAL EXAM: BP 124/80 Pulse 89 Resp 14 Wt 190 lb 14.4 oz (86.6kg) LMP 01/27/2003 GENERAL: Alert and oriented. No acute distress. SKIN: Warm and dry. No jaundice. HEAD: Normocephalic and atraumatic. EYES: Pupils equal, round, and reactive to light. Extraocular movements intact. No scleral icterus. Wearing glasses. PHARYNX: Clear. NECK: No cervical or supraclavicular lymphadenopathy. Thyroid palpably normal. Carotids 2+ bilaterally without bruits. Supple neck. HEART: Normal sinus rhythm without gallop or murmur. LUNGS: Full and clear bilaterally with no rales, wheezes, or rhonchi. BREASTS: She has changes in her left breast consistent with prior lumpectomy and radiation. There are no focal dominant masses palpable on either side. There is no nipple discharge. There is no axillary or supraclavicular lymphadenopathy. ABDOMEN: Soft and non tender. No distention. Normal bowel sounds. No mass or organomegaly. EXTREMITIES: No cyanosis. She does have mild lymphedema in her left upper extremity. I encouraged her to keep a close watch of this and if it begins worsening to get back in a sleeve. NEUROLOGIC: Cranial nerves II-XII grossly intact. Grossly intact motor and sensory exam. DIAGNOSTICS: Her recent breast imaging was personally reviewed. Her recent pathology results were personally reviewed. Old notes from her prior surgeries and follow-up were reviewed as well. IMPRESSION: (C50.411) 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) (primary encounter diagnosis) (Z17.0) Estrogen receptor positive status (ER+) (Z85.3) Personal history of malignant neoplasm of breast (C50.412) 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)-2016 PLAN: We spent 105 minutes today performing a history and physical exam and discussing the biopsy results and the treatment options. The options for treatment locally include mastectomy, with or without reconstruction, versus lumpectomy, possibly combined with radiation therapy depending on radiologic evaluation of her axillary lymph nodes. I explained that these two options are equivalent, with regards to the overall survival rate. Lumpectomy has the advantage of providing better cosmesis, but sometimes requires completion of radiation therapy, again depending on her radiologic lymph node assessment. I discussed potential side effects of radiation therapy (which she understands well, having had radiation on the left side in the past), which are predominantly local skin effects such as sun burning, increased sensitivity, skin thickening/darkening, et cetera. I briefly discussed reconstruction, should she desire mastectomy and explained that she would need to see a plastic surgeon. Generally, the reconstruction can be done at the same time as the mastectomy. We also discussed the management of lymph nodes. Once again, evaluation of her lymph nodes with ultrasound will be critical in determining the need for lymph node sampling. If her nodes are radiologically normal, I would not recommend any lymph node sampling. If there are any abnormalities, then she might need a needle biopsy of any abnormal appearing nodes and then further lymph node sampling at the time of her definitive surgery. I am hopeful that her nodes will be normal and she will not need anything done, but we will certainly need to await that ultrasound. Since this is a?, I did discuss sentinel lymph node biopsy and lymph node dissection. She does have some prior knowledge from her prior surgical procedure. However, our management of positive nodes at the time of sentinel node biopsy has also changed since then. I explained sentinel lymph biopsy to her in detail. I explained the limitation of the procedure, which include the possibility that no sentinel lymph nodes could be found (approximately 10%), and that the preliminary look at the lymph nodes at the time of surgery could be wrong, necessitating return to the operating room. She understands that if the preliminary testing of the lymph nodes at the time of her surgery showed metastatic cancer and she chooses mastectomy, that we would proceed with full lymph node dissection. If she decides for breast preservation, management of the full axilla will depend on the degree of involvement on frozen section. She understands that the goal of sentinel lymph node biopsy is to prevent lymphedema in patients that have no lymph node metastases. I am hopeful that ultrasound of her axilla will be negative and she will not require any lymph node sampling at all. I also discussed the potential need for adjuvant therapy. I explained that it would be critically important for her to take hormonal therapy if we are planning to eliminate both lymph node sampling and radiation from the equation. Without the hormonal therapy, there is just simply no data to support eliminating lymph node sampling and radiation. She understands this very well. I told her that I would want her to follow-up with her medical oncologist for an opinion regarding that. Lastly we talked about genetic testing. She has now had bilateral breast cancer and in addition her mother had breast cancer. It does not appear that she had genetic testing before, so I would recommend this be done. I do not think it is going to change what she does for herself, but it would be important for her sons and her grandchildren to have this information. Questions were answered, and literature was provided. She would like breast preservation so we will begin making plans for a needle localized partial mastectomy. We will arrange for her genetic testing. We will also arrange for her ultrasound of the axilla to be done ZACHARY. I spent 105 minutes preparing to see the patient, [id number] patient care, performing a medically appropriate examination, counseling and educating the patient/family/caregiver, ordering medications, tests, or procedures, completing clinical documentation, and communicating results to the patient/family/caregiver Consultation requested by Dr. Saleh and Dr. Dhaliwal for an opinion regarding new diagnosis of right breast cancer. My final recommendations will be communicated back to the requesting physician by way of shared Medical record or letter to requesting physician via US mail. Remington Sung MD documented in this encounter [facility] 02-26-2024 Telephone encounter Note Patient called. Verified name and date of . Dr. Parker office is currently closed- patient will call tomorrow. Patient is asking how emergent this is if he is scheduled out farther and if so who should she see? I did suggest to patient to find out availability of Dr. Sung and go from there on plan of care. Verbalizes understanding and will call tomorrow morning. Loly Dubois LPN [facility] 02-26-2024 Miscellaneous Notes Patient called. Verified name and date of . Dr. Parker office is currently closed- patient will call tomorrow. Patient is asking how emergent this is if he is scheduled out farther and if so who should she see? I did suggest to patient to find out availability of Dr. Sung and go from there on plan of care. Verbalizes understanding and will call tomorrow morning. Loly Dubois LPN Told patient that pathology reveals Invasive lobular carcinoma, provisional grade 2 She wishes to be referred to Dr. Remington Sung at [facility] for surgical treatment. I will place a phone call for the above. documented in this encounter [facility] 02-26-2024 Telephone encounter Note Told patient that pathology reveals Invasive lobular carcinoma, provisional grade 2 She wishes to be referred to Dr. Remington Sung at [facility] for surgical treatment. I will place a phone call for the above. [facility] Work Phone: 02-03-2024 History of Presen t illness Narrative Love Pino 1950 REFERRING PHYSICIAN: Effie Vaz APRN.* CHIEF COMPLAINT: Follow Up HPI: The patient is a 73 year old female presents with abnormal right breast ultrasound. She is s/p left breast needle core biopsy December 2021 - benign findings. Mammograms 01/01/2023 - no abnormalities She has a history of left breast cancer - stage 2 - T1 N1, she had 13 lymph nodes removed, in 2015. She notes slight left upper extremity lymphedema. She denies palpable breast masses She notes a skin tag in area of left axilla She denies breast pain She denies nipple discharge. Her mother of breast cancer at age 60, no ovarian cancer in family known. Her gynecological history is as follows: menarche onset at age 15, , first at age 23, breast feeding 6-9 mnths for each , BCP use initially at age 22 intermittently for 2-3 y 01/29/2024 IMPRESSION: Irregular mass in the right breast is highly suggestive of malignancy. An ultrasound guided biopsy is recommended. BI-RADS Category 5: Highly Suggestive of Malignancy PAST MEDICAL HISTORY Diagnosis Date Arthritis Breast [...] CURETTAGE DX&/THER NONOBSTETRIC 1980 Dilation & curettage KNEE SURGERY HX Right 08/01/2023 Total MASTECTOMY, PARTIAL Left 01/03/2016 lymph node bx(13) PAST SURGICAL HISTORY OF PAST SURGICAL HISTORY OF 03/2021 vaginal hysterectomy, ovaries remain TONSILLECTOMY HX denies Current Outpatient Medications Medication Sig guaiFENesin (MUCINEX) 600 mg 12 hr tablet Take 1,200 mg by mouth once daily. Biotin 1 mg tab Take 1 tablet by mouth every other day. naproxen sodium (ALEVE ORAL) Take 1 tablet by mouth two times a day. docusate sodium (COLACE ORAL) Take 1 tablet by mouth once daily. CALCIUM CARBONATE (TUMS ORAL) Take 1-2 tablets by mouth once daily. Cholecalciferol, Vitamin D3, 50 mcg (2,000 unit) cap Take 1 capsule by mouth once daily. Qderyeqw-Hylfomm-Fkte-Lutein tab Take 1 tablet by mouth once daily. No current facility-administered medications for this visit. ALLERGIES: Penicillin and Sulfa (Sulfonamide Antibiotics) PERSONAL HISTORY: Social History Tobacco Use Smoking status: Never Smokeless tobacco: Never Vaping Use Vaping status: Never Used Substance Use Topics Alcohol use: Yes Comment: wine </= 2/month Drug use: Never FAMILY HISTORY Problem Relation Age of Onset Breast Cancer Mother 57 age 60 Diabetes Father Heart Father GI Father bleeding ulcers No Known Problems Sister Parkinson s Disease Sister No Known Problems Sister No Known Problems Sister Cancer Brother age 59 Lymphoma/liver disease No Known Problems Brother No Known Problems Brother other (Thyroid or Thraot cancer) Maternal Grandmother No Known Problems Maternal Grandfather other (Heart Condition) Paternal Grandmother other (Heart Condition) Paternal Grandfather Colon Cancer Maternal Aunt Colon Cancer Maternal Uncle The review of systems data was entered by the nurse and reviewed by me Nursing Notes: Loly DuboisMALIKA 02/03/2024 1:42 PM Signed REVIEW OF SYSTEMS: General: The patient [...] blood. Gastrointestinal: The patient denies difficulty swallowing, denies acid reflux, denies ulcers, denies vomiting, denies jaundice/hepatitis, denies gallbladder problems, denies black or tarry stools, notes hemorrhoids, denies bleeding from rectum, denies diverticulitis, denies constipation, denies diarrhea, denies loss of stool control, and denies hernias. Kidney/Bladder: The patient denies kidney stones, notes urine infections, and denies bloody urine. Skin: [...] anemia, denies blood clots. Infections: The patient notes a history of measles and mumps, denies rheumatic fever, and denies sexually transmitted diseases. Musculoskeletal: The patient denies back pain/injury, denies back problems, denies sciatica, notes /foot trouble, denies arthritis, or denies gout. When was patient's last Mammogram screening? 01/03/2024 and 01/29/2024 Last Colonoscopy: 12/19/2020 Loly Dubois LPN PHYSICAL EXAMINATION: General: The patient is 73 year old female, well nourished, well hydrated in no acute distress. The patient is oriented to time, place, and person. VITALS: Blood pressure 122/84, pulse 96, temperature 36.5 C (97.7 F), temperature source Temporal, resp. rate 14, height 158 cm (5' 2.21), weight 87.1 kg (192 lb), last menstrual period 01/27/2003, SpO2 96%. Body mass index is 34.88 kg/m . Head - Normocephalic. EOM intact with sclera clear and no icterus noted. Mouth with mucus membranes moist. Neck - supple with no jugular venous distention noted. Trachea is midline. No thyroid enlargement or thyroid nodules detected. No masses noted. Chest/breast - no asymmetry of breasts noted, no suspicious skin lesions noted - healed upper outer quadrant incisional site, no nipple discharge and both nipples everted, no breast masses noted Lungs - clear to auscultation. Normal breath sounds. No rales/rhonchi/wheezing noted. No labored breathing noted, such as retractions. No cough heard. Heart - normal S1 and S2 auscultated. No rubs/clicks/murmurs noted. Regular rate. Abdomen - soft and benign. Difficult to determine if any masses or organomegaly due to body habitus. Extremities - no calf tenderness noted. No pitting edema noted. Skin - normal skin integrity. Lymph - no cervical adenopathy detected, no supraclavicular adenopathy detected, no axillary adenopathy detected - left axillary skin lesion is what patient points to - keratotic skin lesion Neurological - gait normal, no focal deficits noted Psych - calm and appropriate Assessment IMPRESSION: abnormal right breast ultrasound, history of left breast cancer PLAN: I have discussed the above with the patient. I have rec'd US guided right needle core breast biopsy. I have explained the procedure to the patient. To be done at [facility] imaging center. I will call patient with results. She states that she is OK with this. Patient acknowledges the above. I have answered all questions to the patient s satisfaction and the patient has no further questions. I have confirmed and edited as necessary, the PFSH and ROS obtained by others. Consultation requested by Effie Vaz for an opinion regarding patient's abnormal breast ultrasound. My final recommendations will be communicated back to the requesting physician by way of shared Medical record or letter to requesting physician via US mail. . Diagnoses: (R92.8) Abnormal ultrasound of breast (Z85.3) History of left breast cancer Medical Decision Making: Problems: Moderate: New problem with uncertain prognosis Risk: Low: Low risk from testing/treatment Medical Decision Making Level: 3 - Low Azra Meeks MD documented in this encounter [facility] 02-03-2024 Note HNO ID: [id number] Author: AZRA MEEKS MD Service: ? Author Type: Physician Type: Progress Notes Filed: 02/06/2024 15:01 Note Text: Love Pino 1950 REFERRING PHYSICIAN: Effie Vaz APRN.* CHIEF COMPLAINT: Follow Up HPI: The patient is a 73 year old female presents with abnormal right breast ultrasound. She is s/p left breast needle core biopsy December 2021 - benign findings. Mammograms 01/01/2023 - no abnormalities She has a history of left breast cancer - stage 2 - T1 N1, she had 13 lymph nodes removed, in 2016. She notes slight left upper extremity lymphedema. She denies palpable breast masses She notes a skin tag in area of left axilla She denies breast pain She denies nipple discharge. Her mother of breast cancer at age 60, no ovarian cancer in family known. Her gynecological history is as follows: menarche onset at age 15, , first at age 23, breast feeding 6-9 mnths for each , BCP use initially at age 22 intermittently for 2-3 y 01/29/2024 IMPRESSION: Irregular mass in the right breast is highly suggestive of malignancy. An ultrasound guided biopsy is recommended. BI-RADS Category 5: Highly Suggestive of Malignancy PAST MEDICAL HISTORY Diagnosis Date Arthritis Breast [...] and pills CARPAL TUNNEL 2013 Bilateral COLONOSCOPY 2017 repeat 5 yrs COLONOSCOPY FLX DX W/COLLJ SPEC WHEN PFRMD 12/19/2020 DILATION AND CURETTAGE DXAND/THER NONOBSTETRIC 1979 Dilation AND curettage KNEE SURGERY HX Right 08/01/2023 Total MASTECTOMY, PARTIAL Left 01/03/2016 lymph node bx(13) PAST SURGICAL HISTORY OF PAST SURGICAL HISTORY OF 03/2021 vaginal hysterectomy, ovaries remain TONSILLECTOMY HX denies Current Outpatient Medications Medication Sig guaiFENesin (MUCINEX) 600 mg 12 hr tablet Take 1,200 mg by mouth once daily. Biotin 1 mg tab Take 1 tablet by mouth every other day. naproxen sodium (ALEVE ORAL) Take 1 tablet by mouth two times a day. docusate sodium (COLACE ORAL) Take 1 tablet by mouth once daily. CALCIUM CARBONATE (TUMS ORAL) Take 1-2 tablets by mouth once daily. Cholecalciferol, Vitamin D3, 50 mcg (2,000 unit) cap Take 1 capsule by mouth once daily. Qrshyexl-Xgmdbez-Pdhi-Lutein tab Take 1 tablet by mouth once daily. No current facility-administered medications for this visit. ALLERGIES: Penicillin and Sulfa (Sulfonamide Antibiotics) PERSONAL HISTORY: Social History Tobacco Use Smoking status: Never Smokeless tobacco: Never Vaping Use Vaping status: Never Used Substance Use Topics Alcohol use: Yes Comment: wine Drug use: Never FAMILY HISTORY Problem Relation Age of Onset Breast Cancer Mother 57 age 60 Diabetes Father Heart Father GI Father bleeding ulcers No Known Problems Sister Parkinson?s Disease Sister No Known Problems Sister No Known Problems Sister Cancer Brother age 59 Lymphoma/liver disease No Known Problems Brother No Known Problems Brother other (Thyroid or Thraot cancer) Maternal Grandmother No Known Problems Maternal Grandfather other (Heart Condition) Paternal Grandmother other (Heart Condition) Paternal Grandfather Colon Cancer Maternal Aunt Colon Cancer Maternal Uncle The review of systems data was entered by the nurse and reviewed by me Nursing Notes: Loly Dubois LPN 02/03/2024 1:42 PM Signed REVIEW OF SYSTEMS: General: The patient [...] tuberculosis, denies pneumonia, denies frequent cough, denies pulmon (more content not included)... [facility] 02-03-2024 Nurse Note REVIEW OF SYSTEMS: General: The [...] blood. Gastrointestinal: The patient denies difficulty swallowing, denies acid reflux, denies ulcers, denies vomiting, denies jaundice/hepatitis, denies gallbladder problems, denies black or tarry stools, notes hemorrhoids, denies bleeding from rectum, denies diverticulitis, denies constipation, denies diarrhea, denies loss of stool control, and denies hernias. Kidney/Bladder: The patient denies kidney stones, notes urine infections, and denies bloody urine. Skin: [...] anemia, denies blood clots. Infections: The patient notes a history of measles and mumps, denies rheumatic fever, and denies sexually transmitted diseases. Musculoskeletal: The patient denies back pain/injury, denies back problems, denies sciatica, notes /foot trouble, denies arthritis, or denies gout. When was patient's last Mammogram screening? 01/03/2024 and 01/29/2024 Last Colonoscopy: 12/19/2020 Loly Dubois LPN [facility] 02-03-2024 Nurse Note REVIEW OF SYSTEMS: General: The [...] blood. Gastrointestinal: The patient denies difficulty swallowing, denies acid reflux, denies ulcers, denies vomiting, denies jaundice/hepatitis, denies gallbladder problems, denies black or tarry stools, notes hemorrhoids, denies bleeding from rectum, denies diverticulitis, denies constipation, denies diarrhea, denies loss of stool control, and denies hernias. Kidney/Bladder: The patient denies kidney stones, notes urine infections, and denies bloody urine. Skin: [...] anemia, denies blood clots. Infections: The patient notes a history of measles and mumps, denies rheumatic fever, and denies sexually transmitted diseases. Musculoskeletal: The patient denies back pain/injury, denies back problems, denies sciatica, notes /foot trouble, denies arthritis, or denies gout. When was patient's last Mammogram screening? 01/03/2024 and 01/29/2024 Last Colonoscopy: 12/19/2020 Loly Dubois LPN documented in this encounter [facility] 01-29-2024 Note HNO ID: [id number] Author: EFFIE VAZ APRN.SCRAP DROP ENGINEER Service: ? Author Type: Nurse Practitioner Type: Progress Notes Filed: 01/29/2024 11:14 Note Text: Chief Complaint Patient presents with: Established Patient HPI: Love Pino is a 73 year old female who presents here today [...] nuclear grade 2. ER >90%, strong and OR 60%, weak to moderate. HER2 quantified at [...] wanted second opinion and was referred to [facility]. L dx mamm/US done. Bx not done. Recommendation to repeat MRI in 6 months. Pt. had R dx mamm/US this morning. Appetite:Too good. Energy level:I think it's good. Denies fevers or recent illness. Resp:denies cough or sob Cardiac:denies chest pain/palpitations GI:denies abd pain, occ. 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 Past medical history, appointments, medications, allergies reviewed. No changes. EXAM: BP 117/79 Pulse 93 Wt 86.3 kg (190 lb 4.1 oz) LMP 01/27/2003 SpO2 96% BMI 34.57 kg/m? APPEARANCE Well appearing, alert, in no [...] no suspicious rashes or lesions RADIOLOGY: Mammogram 01/03/24: IMPRESSION: INCOMPLETE: NEED ADDITIONAL IMAGING EVALUATION The asymmetry in the right breast is indeterminate. Additional views are recommended. R dx mammogram 01/29/24: IMPRESSION: Irregular mass in the right breast is highly suggestive of malignancy. An ultrasound guided biopsy is recommended. BI-RADS Category 5: Highly Suggestive of Malignancy R breast US 01/29/24: ULTRASOUND FINDINGS: Ultrasound demonstrates an irregular not parallel irregular mass with indistinct margins measuring 0.6 cm in the middle depth region of the right breast at 11 o'clock. ASSESSMENT/PLAN: 1. Encounter for follow-up surveillance of breast cancer - ICD9: V67.9, V10.3, ICD10: Z08, Z85.3 (primary diagnosis) 2. Personal history of breast cancer - ICD9: V10.3, ICD10: Z85.3 3. 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 - No concerning findings on exam. - Completed 5 years of arimidex therapy 2020. Tolerated fairly well except joint aches/pains. - Reviewed mammograms/R US with pt. - R breast biopsy recommended. - Follow up with Dr. Meeks as scheduled. - Follow up pending R breast biopsy. - Pt. aware to call office with any questions/concerns. The sensitive examination was discussed with the Patient or Patient's Authorized Storage Worker. As applicable, any other physician, advance practice provider, medical student, or other health professional student that will be observing or involved in the sensitive examination for educational or training purposes was discussed with the Patient or Authorized Storage Worker. The (more content not included)... [facility] 01-29-2024 History of Presen t illness Narrative Chief Complaint Patient presents with: Established Patient HPI: Love Pino is a 73 year old female who presents here today [...] nuclear grade 2. ER >90%, strong and OR 60%, weak to moderate. HER2 quantified at [...] wanted second opinion and was referred to [facility]. L dx mamm/US done. Bx not done. Recommendation to repeat MRI in 6 months. Pt. had R dx mamm/US this morning. Appetite:Too good. Energy level:I think it's good. Denies fevers or recent illness. Resp:denies cough or sob Cardiac:denies chest pain/palpitations GI:denies abd pain, occ. 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 Past medical history, appointments, medications, allergies reviewed. No changes. EXAM: BP 117/79 Pulse 93 Wt 86.3 kg (190 lb 4.1 oz) LMP 01/27/2003 SpO2 96% BMI 34.57 kg/m APPEARANCE Well appearing, alert, in no [...] no suspicious rashes or lesions RADIOLOGY: Mammogram 01/03/24: IMPRESSION: INCOMPLETE: NEED ADDITIONAL IMAGING EVALUATION The asymmetry in the right breast is indeterminate. Additional views are recommended. R dx mammogram 01/29/24: IMPRESSION: Irregular mass in the right breast is highly suggestive of malignancy. An ultrasound guided biopsy is recommended. BI-RADS Category 5: Highly Suggestive of Malignancy R breast US 01/29/24: ULTRASOUND FINDINGS: Ultrasound demonstrates an irregular not parallel irregular mass with indistinct margins measuring 0.6 cm in the middle depth region of the right breast at 11 o'clock. ASSESSMENT/PLAN: 1. Encounter for follow-up surveillance of breast cancer - ICD9: V67.9, V10.3, ICD10: Z08, Z85.3 (primary diagnosis) 2. Personal history of breast cancer - ICD9: V10.3, ICD10: Z85.3 3. 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 - No concerning findings on exam. - Completed 5 years of arimidex therapy 2020. Tolerated fairly well except joint aches/pains. - Reviewed mammograms/R US with pt. - R breast biopsy recommended. - Follow up with Dr. Meeks as scheduled. - Follow up pending R breast biopsy. - Pt. aware to call office with any questions/concerns. The sensitive examination was discussed with the Patient or Patient's Authorized Storage Worker. As applicable, any other physician, advance practice provider, medical student, or other health professional student that will be observing or involved in the sensitive examination for educational or training purposes was discussed with the Patient or Authorized Storage Worker. The Patient or Authorized Storage Worker has agreed to proceed with the sensitive examination. (Sensitive examination includes inspection and/or palpation of the breasts, pelvis, prostate and anorectal regions) The patient indicates understanding of these issues and agrees with the plan. All documentation from previous visit of 01/04/23-Dr. Dhaliwal/myself was copied and pasted, documentation has been reviewed and edited as necessary for today's visit. Effie Vaz APRN.HANH documented in this encounter [facility] 01-29-2024 History of Presen t illness Narrative Radiology Service Progress Note PATIENT NAME: Love Pino DATE OF SERVICE: January 29, 2024 TIME: 2:48 PM PATIENT IDENTITY VERIFICATION COMPLETED USING TWO (2) IDENTIFIERS: Name and Date of confirmed by patient verbally. FALL SCREENING: Has the patient had 2 falls in the last year or 1 fall with injury or currently using an Ambulatory Assistive Device (Walker, Cane, Wheelchair, Crutches, etc.)? No PATIENT GENDER DATA: Female. status: : No status: NO. PATIENT RELEVANT IMPLANT DATA REVIEWED: Not Applicable PATIENT PRESENTS WITH AN IMPLANTABLE OR ATTACHED PIER RUNNER: No RADIOLOGY DEPARTMENT: Ultrasound PERIPHERAL IV DATA: Not applicable SIGNED BY: Dorothy Monae RDMS January 29, 2024 2:48 PM documented in this encounter [facility] 01-29-2024 Note HNO ID: [id number] Author: DOROTHY MONAE RDMS Service: ? Author Type: Manager Ecommerce Type: Progress Notes Filed: 01/29/2024 14:49 Note Text: Radiology Service Progress Note PATIENT NAME: Love Pino DATE OF SERVICE: January 29, 2024 TIME: 2:48 PM PATIENT IDENTITY VERIFICATION COMPLETED USING TWO (2) IDENTIFIERS: Name and Date of confirmed by patient verbally. FALL SCREENING: Has the patient had 2 falls in the last year or 1 fall with injury or currently using an Ambulatory Assistive Device (Walker, Cane, Wheelchair, Crutches, etc.)? No PATIENT GENDER DATA: Female. status: : No status: NO. PATIENT RELEVANT IMPLANT DATA REVIEWED: Not Applicable PATIENT PRESENTS WITH AN IMPLANTABLE OR ATTACHED PIER RUNNER: No RADIOLOGY DEPARTMENT: Ultrasound PERIPHERAL IV DATA: Not applicable SIGNED BY: Dorothy Monae RDMS January 29, 2024 2:48 PM [facility] 01-29-2024 History of Presen t illness Narrative Radiology Service Progress Note PATIENT NAME: Love Pino DATE OF SERVICE: January 29, 2024 TIME: 9:25 AM PATIENT IDENTITY VERIFICATION COMPLETED USING TWO (2) IDENTIFIERS: Name and Date of confirmed by patient verbally. FALL SCREENING: Has the patient had 2 falls in the last year or 1 fall with injury or currently using an Ambulatory Assistive Device (Walker, Cane, Wheelchair, Crutches, etc.)? No PATIENT GENDER DATA: Female. status: : No status: NO. PATIENT RELEVANT IMPLANT DATA REVIEWED: Not Applicable PATIENT PRESENTS WITH AN IMPLANTABLE OR ATTACHED PIER RUNNER: No RADIOLOGY DEPARTMENT: Mammography PERIPHERAL IV DATA: Not applicable SIGNED BY: Tessa Cisneros January 29, 2024 9:25 AM documented in this encounter [facility] 01-29-2024 Note HNO ID: [id number] Author: FABBY PENDLETON Mammo Tech Service: ? Author Type: Technologist Type: Progress Notes Filed: 01/29/2024 09:25 Note Text: Radiology Service Progress Note PATIENT NAME: Love Pino DATE OF SERVICE: January 29, 2024 TIME: 9:25 AM PATIENT IDENTITY VERIFICATION COMPLETED USING TWO (2) IDENTIFIERS: Name and Date of confirmed by patient verbally. FALL SCREENING: Has the patient had 2 falls in the last year or 1 fall with injury or currently using an Ambulatory Assistive Device (Walker, Cane, Wheelchair, Crutches, etc.)? No PATIENT GENDER DATA: Female. status: : No status: NO. PATIENT RELEVANT IMPLANT DATA REVIEWED: Not Applicable PATIENT PRESENTS WITH AN IMPLANTABLE OR ATTACHED PIER RUNNER: No RADIOLOGY DEPARTMENT: Mammography PERIPHERAL IV DATA: Not applicable SIGNED BY: Tessa Cisneros January 29, 2024 9:25 AM [facility] 01-07-2024 Telephone encounter Note Spoke with patient and rescheduled. Gabby Lantigua [facility] 01-07-2024 Miscellaneous Notes Spoke with patient and rescheduled. Gabby Lantigua Pt. Notified that radiologist is requesting additional images of mammogram. Pt. Voiced understanding, was given phone number to schedule those images. PSS please contact pt. Later this afternoon to reschedule appt. With Effie after those images obtained. Pt. Is aware you will be rescheduling her appt. Irlanda Ramirez LPN Please inform pt. that the radiologist would like additional images of her R breast. Please schedule R dx mamm/US soon. Please push out upcoming OV until after above. Thank you. Effie Vaz APRN.SCRAP DROP ENGINEER documented in this encounter [facility] 01-06-2024 Telephone encounter Note Pt. Notified that radiologist is requesting additional images of mammogram. Pt. Voiced understanding, was given phone number to schedule those images. PSS please contact pt. Later this afternoon to reschedule appt. With Effie after those images obtained. Pt. Is aware you will be rescheduling her appt. Irlanda Ramirez LPN [facility] 01-06-2024 Telephone encounter Note Please inform pt. that the radiologist would like additional images of her R breast. Please schedule R dx mamm/US soon. Please push out upcoming OV until after above. Thank you. Effie Vaz APRN.SCRAP DROP ENGINEER [facility] 01-03-2024 History of Presen t illness Narrative Radiology Service Progress Note PATIENT NAME: Love Pino DATE OF SERVICE: January 03, 2024 TIME: 8:32 AM PATIENT IDENTITY VERIFICATION COMPLETED USING TWO (2) IDENTIFIERS: Name and Date of confirmed by patient verbally. FALL SCREENING: Has the patient had 2 falls in the last year or 1 fall with injury or currently using an Ambulatory Assistive Device (Walker, Cane, Wheelchair, Crutches, etc.)? No PATIENT GENDER DATA: Female. status: : No status: NO. PATIENT RELEVANT IMPLANT DATA REVIEWED: Not Applicable PATIENT PRESENTS WITH AN IMPLANTABLE OR ATTACHED PIER RUNNER: No RADIOLOGY DEPARTMENT: Mammography PERIPHERAL IV DATA: Not applicable SIGNED BY: Tessa Canseco January 03, 2024 8:32 AM documented in this encounter [facility] 01-03-2024 Note HNO ID: [id number] Author: SUDARSHAN HOPKINS Mammo Tech Service: ? Author Type: Manager Ecommerce Type: Progress Notes Filed: 01/03/2024 08:32 Note Text: Radiology Service Progress Note PATIENT NAME: Love Pino DATE OF SERVICE: January 03, 2024 TIME: 8:32 AM PATIENT IDENTITY VERIFICATION COMPLETED USING TWO (2) IDENTIFIERS: Name and Date of confirmed by patient verbally. FALL SCREENING: Has the patient had 2 falls in the last year or 1 fall with injury or currently using an Ambulatory Assistive Device (Walker, Cane, Wheelchair, Crutches, etc.)? No PATIENT GENDER DATA: Female. status: : No status: NO. PATIENT RELEVANT IMPLANT DATA REVIEWED: Not Applicable PATIENT PRESENTS WITH AN IMPLANTABLE OR ATTACHED PIER RUNNER: No RADIOLOGY DEPARTMENT: Mammography PERIPHERAL IV DATA: Not applicable SIGNED BY: Tessa Canseco January 03, 2024 8:32 AM [facility] 07-15-2023 History of Presen t illness Narrative Chief Complaint Patient presents with: Pre-Op Exam HPI Love Pino is a 73 year old female who presents here today for pre op clearance right total knee replacement. Surgery scheduled for July 31 at [facility] [place] by Dr. Das. COVID April 29, feels like she has recovered ad is back to baseline. Denies SOB or CP. Past medical history, appointments, medications, allergies reviewed. [...] and pills CARPAL TUNNEL 2013 Bilateral COLONOSCOPY 2017 repeat 5 yrs COLONOSCOPY [...] on File Prior to Visit Medication Sig naproxen sodium (ALEVE ORAL) Take 1 tablet by mouth two times a day. guaiFENesin (MUCINEX) 600 mg 12 hr tablet Take 1,200 mg by mouth once daily. Biotin 1 mg tab Take 1 tablet by mouth every other day. docusate sodium (COLACE ORAL) Take 1 tablet by mouth once daily. CALCIUM CARBONATE (TUMS ORAL) Take 1-2 tablets by mouth once daily. Cholecalciferol, Vitamin D3, 50 mcg (2,000 unit) cap Take 1 capsule by mouth once daily. Dfpfwstp-Ohbxcgj-Swib-Lutein tab Take 1 tablet by mouth once daily. No current facility-administered medications on file prior to visit. Social History Social History Tobacco Use Smoking status: Never Smokeless tobacco: Never Vaping Use Vaping Use: Never used Substance Use Topics Alcohol use: Yes Comment: wine </= 2/month Drug use: No Review of Symptoms REVIEW OF SYSTEMS See HPI EXAM: BP 128/74 Pulse 82 Resp 16 Wt 83.9 kg (185 lb) LMP 01/27/2003 BMI 33.61 kg/m General Appearance: Well appearing, alert, in no acute distress, well-hydrated, well nourished.. Lungs: Lungs clear to auscultation. No wheezing, rhonchi, rales.. Heart: RRR without murmur, gallop, or rubs. No ectopy. Abdomen: Normal abdominal exam, Abdomen soft, non-tender. Bowel sounds normal. No masses, organomegaly. Peripheral Pulses: Normal. Health Maintenance List RSV Vaccine(1 - 1-dose 60+ series) Never done Shingrix Vaccine(2 of 3) due on 05/13/2015 Covid-19 Vaccine(3 - season) due on 12/28/2022 Advance Directive Discussion due on 04/29/2023 Depression Assessment Never done Mammogram Screening due on 01/02/2024 Diabetes Screening due on 05/15/2026 DTaP,Tdap,Td Vaccine(2 - Td or Tdap) due on 07/16/2026 Lipid Screening due on 05/15/2028 Colorectal Cancer Screening due on 12/19/2030 Bone Density Screening Completed Influenza Vaccine Completed Pneumococcal Vaccine: 65+ Completed HPV Vaccine Aged Out Hepatitis C Screening Discontinued ASSESSMENT/PLAN: 1. Encounter for pre-operative examination - ICD9: V72.84, ICD10: Z01.818 (primary diagnosis) -Patient optimized for surgery. Patient laboratory tests reviewed, no electrolyte abnormalities noted. CBC WNL. 2. Age-related osteoporosis without current pathological fracture - ICD9: 733.01, ICD10: M81.0 - Reviewed the need for Calcium and Vitamin D supplements and weight bearing exercise as tolerated 3. Class 1 obesity due to excess calories with serious comorbidity and body mass index (BMI) of 32.0 to 32.9 in adult - ICD9: 278.00, V85.32, ICD10: E66.09, Z68.32 Stable 4. Osteoarthritis of left knee, unspecified osteoarthritis type - ICD9: 715.96, ICD10: M17.12 -Left knee replacement scheduled 07/[address] Das. Lizeth Sifuentes APRN.SCRAP DROP ENGINEER E Vazquez [facility] RELOCATION SERVICES SPECIALIST Student I have personally seen and examined the patient and performed the medical-decision making components. I have reviewed the Advanced Practice Registered Nurse (BROOCH AND BRACELET MAKER) student's documentation and verified the findings in the note as written. Any additions or changes are noted in bold/italics. 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 [place] [address] / REHABILITATION SERVICES DISCHARGE SUMMARY MR#: [id number] Acct: [id number] Name: LOVE PINO Rep #: [id number] : 1950 72 From: Cert. CONSTANTINE Jon, OCS Referring Dr.: Dr. Justin Das MD Status: REG RCR Insurance: MEDICARE PART A B [facility] Discharge Summary D/C summary: It has been my pleasure to treat LOVE PINO referred by Dr. Justin Das MD, with the diagnosis of UNILATERAL PROMARY OSTEOARTHRITIS ,RIGHT ,LEFT KNEE for a total of 10 visit(s). Discharge Date: 04/18/23 Please see the following information for a summary of their discharge status. Subjective Subjective: Will try water ,on own Pain Bilateral Knee: Pain Intensity (Out of 10): 6 Overall Improvement % Improvement: 20 Objective Objective/Function: POSTURE: mild forward posture GAIT: reciprocal pattern mild forward posture PALAPTION: tender medial/lateral knee EDEMA: absent STAIRS: one step at time AROM: 0-110 supine knee flexion MMT: ( peak force) quads right 27.7 ,left 22.1 ,hamstrings right 20.3 ,left 15.3 Goals Goal 1:: I with Aquatic Therapy for knees Goal Progress: Goal Met Goal 2:: Patient to improve AROM knee flexion by 5-10 degrees to improve stairs Goal Progress: Progressing Goal 3:: Patient to improve peak force quads/hams by 5-10 # strength to improve gait Goal Progress: Progressing Goal 4:: Patient to improve LFES score by 5-10 points to improve QOL and function Goal Progress: Progressing Goal 5:: Patient to demonstrate 50% improvement with improve function and less pain Goal Progress: Progressing Plan Plan: D/C D/C Information Discharge Comments: HEP AND AQAUTICS d/c sentence: If there are questions or concerns regarding this patient's physical therapy, please feel free to call me at [phone]. Thank you for the referral of thispatient. Sincerely, Guicho Strange PT, Cert MDT, OCS Balance/Gait/Functional tests Balance/Special Test Scores Lower Extremity Functional Score: 45 Improvement % Improvement: 20 <Electronically signed by Guicho Strange PT, Cert. MDT, OCS> 04/18/23 [id number] CC: Dr. Gerardo Saleh MD; Dr. Justin Das MD ~ LIZETH Signed [facility] Work Phone: 1(771) 853-381611-21-2023 Miscellaneous Notes* Telephone Encounter - Edwin Motley MA - 03/19/2023 12:19 PM EST Patient notified. Edwin Motley MA * Telephone Encounter - Gerardo Saleh MD - 03/19/2023 12:06 PM EST Et patient know non-fasting labs placed that can be done prior to her appt. * Telephone Encounter - Edwin Motley MA - 03/19/2023 8:11 AM EST Patient is scheduled for 05/07 for medicare wellness. Please place lab orders. Edwin Motley MA [facility] History of Present illness Narrative* Effie Vaz APRN.SCRAP DROP ENGINEER - 01/04/2023 8:50 AM EDT Chief Complaint Patient presents with: Established Patient HPI: Love Pino is a 72 year old female [...] nuclear grade 2. ER >90%, strong and OR 60%, weak to moderate. HER2 quantified at 1+. She then underwent a left-sided lumpectomy with sentinel lymph node biopsy followed by completion axillary dissection on 01/03/2016. Final pathology demonstrated a single focus of invasive malignancy in the left breast measuring 1.9cm. The overall grade was 2. Margins were [...] breast bx. [facility]US done. Bx not done. Recommendation to repeat MRI in 6 months. Pts. last 2021. No new concerns today. Appetite:Too good. Energy level:I think it's good. I'm doing things like [...] C (98.4 F) Ht 159 cm (5' 2.6) Wt 83 kg (183 lb) LMP 01/27/2003 [...] (1.9 cm; grade 2; LVI+) pN1a MX ER/OR positive HER2 negative stage IIA invasive ductal [...] and edited as necessary for today's visit. Effie Vaz APRN.HANH documented [facility] Miscellaneous Notes* Letter - Coordinator, Mammography - 01/01/2023 2:43 PM EDT January 02, 2023 PID: [id number] Love Pino [address] [place] [address] Dear Ms. Pino, We are pleased to [...] dense breast tissue in addition to other riskfactors. Early detection of cancer is very important. We also understand recommendations regarding breast cancer screening are controversial. Please discuss with your primary care provider which strategy is best for you and whether a mammogram is right for you. Your imaging studies and report will be kept on file at [facility] as part of your permanent medical record and are available for your continuing care. Thank you for allowing us to help in meeting your health care needs. Sincerely, Dr. Moyer Interpreting Radiologist [facility] (Normal over 40) documented in this encounter[facility]06-28-[facility]23 Miscellaneous Notes* Telephone Encounter - Adilia Blair Pss - 10/24/2022 3:17 PM EDT Scheduled with patient * Telephone Encounter - Cherelle Vale - 10/24/2022 11:52 AM EDT 1st Attempt to call patient. Called and left patient a message to contact our office to schedule anappointment. Cherelle * Telephone Encounter - Lesvia Girard LPN - 10/23/2022 10:18 AM EDT Patient is aware and is requesting the schedulers call her to schedule mammogram and OV. Lesvia Girard LPN * Telephone Encounter - Effie Vaz APRN.CNP - 10/23/2022 10:07 AM EDT Mammogram order in. Needs OV after above. Thank you. Effie Vaz APRN.HANH * Telephone Encounter - Adilia Church - 10/22/2022 12:23 PM EDT Patient requesting mamm orders documented in this encounter[facility] History of Present illness Narrative* Jayleen Abdul MA - 10/10/2022 10:43 AM EDT POPULATION HEALTH NAVIGATION OUTREACH Action/ NO ANSWER [employer] MESSAGE SENT ANNUAL MEDICARE WELLNESS EXAM DUE AFTER 12-26-22 ADVANCE DIRECTIVE DISCUSSION due on 04/29/2022 DEPRESSION ASSESSMENT Never done MAMMOGRAM due on 12/11/2022 Patient Identified by Name and : NO Outreach Outcome/Action Unable to reach patient: Phone number not valid / voicemail full [employer] message sent Did you use a PCP [...] 10, 2022 10:43 AM documented in this encounter[facility] Miscellaneous Notes* Telephone Encounter - Azra Meeks MD - 01/02/2022 2:32 PM EDT Told patient that pathology was benign. Only scar tissue found which would be consistent with the location of the previous lumpectomy. Will have patient undergo repeat left breast mammograms and ultrasound in 6 months. Patient acknowledges above. She states that the biopsy site is healing well. documented in this encounter[facility] Procedure note* Azra Meeks MD - 12/28/2021 3:59 PM EDTProcedure(s): BX BREAST W/DEVICE 1ST LESION ULTRASOUND GUID [...] none EBL - minimal documented in this encounterMart[facility] History of Present illness Narrative* Azra Meeks MD - 12/28/2021 3:58 PM EDT Patient underwent US guided needle core biopsy. She tolerated procedure well. Patient to follow up with me next week for discussion of results. * Laila Swift - 12/28/2021 8:41 AM EDT UNIVERSAL PROTOCOL / SAFETY CHECKLIST Procedure to [...] correctly labeled. Laila Swift documented in this encounterMart[facility]09-[facility]22 History of Present illness Narrative* Khushboo Martínez, Mammo Tech - 12/28/2021 11:00 AM EDT Radiology Service Progress Note PATIENT NAME: Love Pino DATE OF SERVICE: December 28, 2021 TIME: 9:54 AM PATIENT IDENTITY VERIFICATION COMPLETED USING TWO (2) IDENTIFIERS: Name and Date of confirmedby patient verbally. FALL SCREENING: Has the patient had 2 falls in the last year or 1 fall with injury or currently using an Ambulatory Assistive Device (Walker, Cane, Wheelchair, Crutches, etc.)? No PATIENT GENDER DATA: Female. status: : No status: NO. PATIENT RELEVANT IMPLANT DATA REVIEWED: Not Applicable RADIOLOGY DEPARTMENT: Mammography PERIPHERAL IV DATA: Not applicable SIGNED BY: Khushboo Martínez [employer] December 28, 2021 9:54 AM documented in this encounterMart[facility]09-[facility]-2022 Instructions* Patient Instructions* Laila Swift - 12/28/2021 9:10 AM EDT The following instructions are important for you related to your office visit today with the [facility] General Surgeons. Instructions After OFFICE BASED [...] If you have significant bruising, an ice packmay improve your discomfort. Please make an appointment to return to our office in 1 weeks. If you note any additional difficulties, questions, or concerns, you should contact our office immediately @ [phone] and ask to be transferred to the General Surgery department. documented in this encounterMartins [facility]erry Hospital08-31-2022 Miscellaneous Notes* Telephone Encounter - Tiffany Ugarte PA-C - 12/27/2021 1:32 PM EDT noted * Telephone Encounter - Edwin Motley MA - 12/27/2021 11:06 AM EDT Patient notified and voiced understanding. She indicated when she went to blood work she had just gone to the restroom and could not give a urine sample. She is stopped back by tomorrow to get that completed. Edwin Motley MA * Telephone Encounter - Tiffany Ugarte PA-C - 12/27/2021 10:37 AM EDT Cholesterol levels are still elevated some but her her LDL has improved some. Continue to work on diet. A1c has improved. Thyroid is normal Thanks. Tiffany Ugarte PA-C documented in this encounterMartins [facility]erry Hospital08-30-2022 History of Present illness Narrative* Tfifany Ugarte PA-C - 12/26/2021 9:44 AM EDT Medicare Yearly Visit Medical B eligibilty date [...] Comment: wine </= 2/month Drug use: No Love likes to exercise by walking and swimming or swim class. She watches her diet for sodium, low fat and low cholesterol some of the time. List of current specialists seen: oncology End of Live Planning discussed including patients advanced directive wishes: Yes I am willing to follow Love's advanced directives. Depression Screening 02/09/2019 08/31/2020 12/10/2020 12/26/2021 PHQ-2 Score 0 0 1 0 Depression screening tool completed and reviewed. Based on score and interview, patient is not at risk for depression. Screening tool discussed with patient, and I recommended no further interventionat this time. PHQ-2 Score: 0 Functional Ability/Safety Screen 1. Was the patient's timed Up and Go test unsteady or longer than 30 seconds? No 2. Does the patient need help with the phone, transportation, shopping,preparing meals, housework, laundry, medications or managing money? No 3. Does your home have rugs in the hallway, lack of grab bars in the bathroom, lack of handrails onthe stairs or have poor lighting? No Hearing Evaluation: within normal limits and normal PHYSICAL EXAM BP 110/76 (BP Site: Left Arm, BP Position: Sitting, BP Cuff Size: Large Adult) Pulse 72 Temp 36.3 C (97.4 F) Resp 18 Ht 158.5 cm (5' 2.4) Wt 82.1 kg (181 lb) LMP 01/27/2003 BMI 32.68 kg/m Alert and oriented X 3: YES Body mass index is 32.68 kg/m . Visual acuity: sees opto ASSESSMENT/PLAN: 71 year old female The following prevention plan was discussed during the office visit and provided to the patient: See below. Tiffany Ugarte PA-C Chief Complaint Patient presents with: Medicare Wellness Exam HPI Love Pino is a 71 year old female [...] Take 1 capsule by mouth once daily. 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 Negative for mood disorder andrecent psychosocial stressors HEMATOLOGY/LYMPHOLOGY: Negative for prolonged bleeding, bruising easily or swollen nodes ENDOCRINE: Negative for cold or heat intolerance, polyuria, polydipsia and goiter NEURO: No history of headaches, syncope, paralysis, seizures or tremors EXAM: BP 110/76 (BP Site: Left Arm, BP Position: Sitting, BP Cuff Size: Large Adult) Pulse 72 Temp 36.3 C (97.4 F) Resp 18 Ht 158.5 cm (5' 2.4) Wt 82.1 kg (181 lb) LMP 01/27/2003 [...] diet of 1000 mg/day for under 50, 1200- 1500 mg/day for 50+ 2. Advance directive discussed [...] Patient tolerated well. On recheck canal clear.. Tiffany Ugarte PA-C documented in this encounterMartins [facility]erry Hospital08-29-[facility]22 History of Present illness Narrative* Azra Meeks MD - 12/25/2021 6:05 PM EDT Love Pino 1950 REFERRING PHYSICIAN: Gerardo Saleh MD CHIEF COMPLAINT: Consult (Left Breast) HPI: The patient is a 71 year old female presents with abnormal left breast radiographs. She has a history of left breast cancer - stage 2 - T1 N1, she had 13 lymph nodes removed, in 2015. She notes slight left upper extremity lymphedema. She denies palpable breast masses. She denies nipple discharge. Her mother of breast cancer at age 60, no ovarian cancer in family known. Her gynecological history is as follows: menarche onset at age 15, , first at age 23,breast feeding 6-9 mnths for each , BCP use initially at age 22 intermittently [...] Take 1 capsule by mouth once daily. Jtknjtqa-Numwxyl-Ucuk-Lutein tab Take 1 tablet by mouth once [...] entered by the nurse and reviewed by md Nursing Notes: Laila Swift 12/25/2021 9:01 AM [...] nourished, well hydrated in no acute distress. Thepatient is oriented to time, place, and person. VITALS: Blood pressure 108/73, pulse 81, height 157.5 cm (5' 2), weight 82.1 kg (181 lb), last menstrual [...] obtained by others. Consultation requested by Dr. Gerardo Saleh for an opinion regarding patient's abnormal [...] guided left breast needle core biopsy in theoffice. Medical Decision Making: Problems: Moderate: New problem with uncertain prognosis Data: Unique test result(s) reviewed: 1 Risk: Low: Low risk from testing/treatment Medical Decision Making Level: 3 - Low Azra Meeks MD documented in this encounterMartins Ferry Hospital08-29-2022 Nurse Note* Laila Swift - 12/25/2021 8:58 AM EDT REVIEW OF SYSTEMS: General: The patient denies [...] Colonoscopy: 12/19/2020 Laila Swift documented in this encounterMartins Ferry Hospital08-24-2022 History of Present illness Narrative* Sonya Barroso RDMS - 12/20/2021 3:30 PM EDT Radiology Service Progress Note PATIENT NAME: Love Pino DATE OF SERVICE: December 20, 2021 TIME: 3:53 PM PATIENT IDENTITY VERIFICATION COMPLETED USING TWO (2) IDENTIFIERS: Name and Date of confirmedby patient verbally. FALL SCREENING: Has the patient had 2 falls in the last year or 1 fall with injury or currently using an Ambulatory Assistive Device (Walker, Cane, Wheelchair, Crutches, etc.)? No PATIENT GENDER DATA: Female. status: : No status: N/A PATIENT RELEVANT IMPLANT DATA REVIEWED: Not Applicable RADIOLOGY DEPARTMENT: Ultrasound PERIPHERAL IV DATA: Not applicable SIGNED BY: oSnya Barroso RDMS RVT December 20, 2021 3:53 PM documented in this encounterMartins Ferry Hospital08-18-2022 History of Present illness Narrative* Effie Vaz APRN.CNP - 12/14/2021 8:39 AM EDT Chief Complaint Patient presents with: Established Patient HPI: Love Pino is a 71 year old female [...] nuclear grade 2. ER >90%, strong and OR 60%, weak to moderate. HER2 quantified at 1+. She then underwent a left-sided lumpectomy with sentinel lymph node biopsy followed by completion axillary dissection on 01/03/2016. Final pathology demonstrated a single focus of invasive malignancy in the left breast measuring 1.9cm. The overall grade was 2. Margins were [...] breast bx. [facility]US done. Bx not done. Recommendation to repeat MRI in 6 months. No new concerns today. Appetite:Too good. Energy level:I think it's good. Denies fevers. Resp:denies cough [...] C (98.2 F) Ht 159.7 cm (5' 2.89) Wt 81.2 kg (179 lb) LMP 01/27/2003 [...] normoactive, soft, non-tender, non-distended, without organomegaly or palpablemasses, no tenderness to palpation EXTREMITIES No edema [...] (1.9 cm; grade 2; LVI+) pN1a MX ER/OR positive HER2 negative stage IIA invasive ductal [...] and edited as necessary for today's visit. Effie Vaz APRN.HANH [facility] History of Present illness Narrative* Tessa Alexandra - 12/11/2021 8:30 AM EDT Radiology Service Progress Note PATIENT NAME: Love Pino DATE OF SERVICE: December 11, 2021 TIME: 8:26 AM PATIENT IDENTITY VERIFICATION COMPLETED USING TWO (2) IDENTIFIERS: Name and Date of confirmedby patient verbally. FALL SCREENING: Has the patient [...] 11, 2021 8:26 AM [facility] History of Present illness Narrative* Myra Motley APRN.HANH - 09/14/2021 3:43 PM EDT Images from the original note were not included. Subjective patient came in with complaints of possible splinter in her right thumb. Patient said it happened amonth ago and she though she got it all. Now it is a hard bump that gets irritated on and off. Sometimes she is able to squeeze pus out of it. The history is provided by the patient. No accredited pharmacy technician was used. Review of Systems Constitutional: Negative. [...] 1 Drop in both eyes once daily. Zarzcdfg-Lbjahqa-Sgab-Lutein (CENTRUM SILVER ULTRA WOMEN'S) tab Take 1 [...] wants to go to her PCP. Myra Motley APRN.CNP documented in this encounter[facility]12-[facility] NoteHNO ID: [id number] Author: Jane Restrepo APRN.FURNACE HAND Service: Anesthesiology Author Type: Nurse Digital Recruiter Type: Anesthesia Procedure Notes Filed: 04/06/2021 11:55 AM Note Text: ANESTHESIOLOGY PROCEDURE NOTE Airway General Information Procedure Start Time/Medication Administration: 04/06/2021 11:43 AM Patient location during procedure: OR Timeout Performed Pre-procedure: timeout performed Consent Obtained: Yes Patient identity confirmed: arm band and patient Staffing FURNACE HAND: Jane Restrepo APRN.CRNA Indications and Patient Condition [...] attempts at approach: 1 SIGNATURE: Jane Restrepo APRN.CRNA PATIENT NAME: Love Pino DATE: April 06, 2021 TIME: 11:55 AM CSN: [id number] History of Past illness Narrative* Problem Noted Date Resolved Date History of colonic polyps 10/28/20202020 documented as of this encounter (statuses as of 09/14/2021) [facility] of Past illness Narrative* Problem Noted Date Resolved Date History of colonic polyps 10/28/20202020 documented as of this encounter (statuses as of 11/26/2021) [facility] of Past illness Narrative* Problem Noted Date Resolved Date History of colonic polyps 10/28/20202020 documented as of this encounter (statuses as of 12/12/2021) [address]02-2021 History of Past illness Narrative* Problem Noted Date Resolved Date History of colonic polyps 10/28/20202020 documented as of this encounter (statuses as of 12/14/2021) [address]02-2021 History of Past illness Narrative* Problem Noted Date Resolved Date History of colonic polyps 10/28/20202020 documented as of this encounter (statuses as of 12/21/2021) [address]02-2021 History of Past illness Narrative* Problem Noted Date Resolved Date History of colonic polyps 10/28/20202020 documented as of this encounter (statuses as of 12/26/2021) [address]02-2021 History of Past illness Narrative* Problem Noted Date Resolved Date History of colonic polyps 10/28/20202020 documented as of this encounter (statuses as of 12/27/2021) [address]02-2021 History of Past illness Narrative* Problem Noted Date Resolved Date History of colonic polyps 10/28/20202020 documented as of this encounter (statuses as of 12/27/2021) [facility] illness Narrative* Problem Noted Date Resolved Date History of colonic polyps 10/28/20202020 documented as of this encounter (statuses as of 12/29/2021) [address]02-2021 History of Past illness Narrative* Problem Noted Date Resolved Date History of colonic polyps 10/28/20202020 documented as of this encounter (statuses as of 12/31/2021) [address]02-2021 History of Past illness Narrative* Problem Noted Date Resolved Date History of colonic polyps 10/28/20202020 documented as of this encounter (statuses as of 01/02/2022) [facility] Narrative* Problem Noted Date Resolved Date History of colonic polyps 10/28/20202020 documented as of this encounter (statuses as of 01/08/2022) [address]02-2021 History of Past illness Narrative* Problem Noted Date Resolved Date History of colonic polyps 10/28/20202020 documented as of this encounter (statuses as of 10/11/2022) [address]02-2021 History of Past illness Narrative* Problem Noted Date Resolved Date History of colonic polyps 10/28/20202020 documented as of this encounter (statuses as of 10/25/2022) [address]02-2021 History of Past illness Narrative* Problem Noted Date Diagnosed Date Resolved Date History of colonic polyps 10/28/2020 documented as of this encounter (statuses as of 01/03/2023) [address]02-2021 History of Past illness Narrative* Problem Noted Date Diagnosed Date Resolved Date History of colonic polyps 10/28/2020 documented as of this encounter (statuses as of 01/04/2023) [address]02-2021 History of Past illness Narrative* Problem Noted Date Diagnosed Date Resolved Date History of colonic polyps 10/28/2020 documented as of this encounter (statuses as of 03/19/2023) [address]02-2021 History of Past illness Narrative* Problem Noted Date Diagnosed Date Resolved Date History of colonic polyps 10/28/2020 documented as of this encounter (statuses as of 07/08/2023) [address]02-2021 History of Past illness Narrative* Problem Noted Date Diagnosed Date Resolved Date History of colonic polyps 10/28/2020 documented as of this encounter (statuses as of 07/11/2023) [address]02-2021 History of Past illness Narrative* Problem Noted Date Diagnosed Date Resolved Date History of colonic polyps 10/28/2020 documented as of this encounter (statuses as of 07/15/2023) [facility] Foreign body of right hand, initial encounter- Primary [facility] Malignant neoplasm of upper-outer quadrant of left breast in female, estrogen receptor positive (HCC) Encounter for screening mammogram for high-risk patient [facility] Malignant neoplasm of upper-outer quadrant of left breast in female, estrogen receptor positive (HCC)- Primary [facility] Diagnosis Medicare annual wellness visit, [...] ear Impacted cerumen [facility]* Diagnosis Abnormal ultrasound of breast- Primary Other (abnormal) findings on radiological examination of breast History of left breast cancer [facility] Diagnosis Abnormal ultrasound of breast Other (abnormal) findings on radiological examination of breast [facility]* Diagnosis Abnormal ultrasound of breast- Primary Other (abnormal) findings on radiological examination of breast [facility]* Diagnosis Abnormal mammogram- Primary Abnormal mammogram, unspecified [facility]* Diagnosis Malignant neoplasm of upper-outer quadrant of left breast in female, estrogen receptor positive (HCC)- Primary Encounter for screening mammogram for high-risk patient [facility]* Diagnosis Personal history of breast cancer- Primary Personal history of malignant neoplasm of breast Encounter for screening mammogram for high-risk patient [facility]* Diagnosis Elevated blood sugar- Primary Other abnormal glucose Encounter for lipid screening for cardiovascular disease Screening for lipoid disorders Medication management Encounter for long-term (current) use of other medications documented [facility] noteNo assessment information availableWPremier Health [facility] Work Phone: Evaluation note* Diagnosis Encounter for pre-operative examination- Primary Age-related osteoporosis without current pathological fracture Senile osteoporosis Class 1 obesity due to excess calories with serious comorbidity and body mass index (BMI) of 32.0 to 32.9 in adult Osteoarthritis of left knee, unspecified osteoarthritis type [facility]* Diagnosis Pre-operative examination- Primary Preoperative examination, unspecified Cystocele, midline Partial rectal prolapse Rectal prolapse Malignant neoplasm of upper-outer quadrant of left breast in female, estrogen receptor positive (HCC) Venous insufficiency (chronic) (peripheral) Unspecified venous (peripheral) insufficiency Lymphedema of left upper extremity Class 1 obesity due to excess calories with serious comorbidity and body mass index (BMI) of 32.0 to 32.9 in adult Personal history of breast cancer Personal history of malignant neoplasm of breast Encounter for screening mammogram for high-risk patient documented [facility]* Diagnosis Pre-operative examination- Primary Preoperative examination, unspecified Cystocele, midline Partial rectal prolapse Rectal prolapse Malignant neoplasm of upper-outer quadrant of left breast in female, estrogen receptor positive (HCC) Venous insufficiency (chronic) (peripheral) Unspecified venous (peripheral) insufficiency Lymphedema of left upper extremity Class 1 obesity due to excess calories with serious comorbidity and body mass index (BMI) of 32.0 to 32.9 in adult Malignant neoplasm of upper-outer quadrant of left breast in female, estrogen receptor positive (HCC)- Primary Abnormal mammogram of right breast documented in this encounter [facility] note* Diagnosis Pre-operative examination- Primary Preoperative examination, unspecified Cystocele, midline Partial rectal prolapse Rectal prolapse Malignant neoplasm of upper-outer quadrant of left breast in female, estrogen receptor positive (HCC) Venous insufficiency (chronic) (peripheral) Unspecified venous (peripheral) insufficiency Lymphedema of left upper extremity Class 1 obesity due to excess calories with serious comorbidity and body mass index (BMI) of 32.0 to 32.9 in adult Encounter for follow-up surveillance of breast cancer- Primary Unspecified follow-up examination Personal history of breast cancer Personal history of malignant neoplasm of breast Abnormal mammogram of right breast Malignant neoplasm of upper-outer quadrant of left breast in female, estrogen receptor positive (HCC) documented in this encounter [facility] note* Diagnosis Pre-operative examination- Primary Preoperative examination, unspecified Cystocele, midline Partial rectal prolapse Rectal prolapse Malignant neoplasm of upper-outer quadrant of left breast in female, estrogen receptor positive (HCC) Venous insufficiency (chronic) (peripheral) Unspecified venous (peripheral) insufficiency Lymphedema of left upper extremity Class 1 obesity due to excess calories with serious comorbidity and body mass index (BMI) of 32.0 to 32.9 in adult Malignant neoplasm of upper-outer quadrant of left breast in female, estrogen receptor positive (HCC) Abnormal mammogram of right breast [facility]* Diagnosis Pre-operative examination- Primary Preoperative examination, unspecified Cystocele, midline Partial rectal prolapse Rectal prolapse Malignant neoplasm of upper-outer quadrant of left breast in female, estrogen receptor positive (HCC) Venous insufficiency (chronic) (peripheral) Unspecified venous (peripheral) insufficiency Lymphedema of left upper extremity Class 1 obesity due to excess calories with serious comorbidity and body mass index (BMI) of 32.0 to 32.9 in adult Malignant neoplasm of upper-outer quadrant of left breast in female, estrogen receptor positive (HCC) Abnormal mammogram of right breast documented in this encounter [facility] note* Diagnosis Pre-operative examination- Primary Preoperative examination, unspecified Cystocele, midline Partial rectal prolapse Rectal prolapse Malignant neoplasm of upper-outer quadrant of left breast in female, estrogen receptor positive (HCC) Venous insufficiency (chronic) (peripheral) Unspecified venous (peripheral) insufficiency Lymphedema of left upper extremity Class 1 obesity due to excess calories with serious comorbidity and body mass index (BMI) of 32.0 to 32.9 in adult Abnormal ultrasound of breast Other (abnormal) findings on radiological examination of breast History of left breast cancer documented in this encounter [facility] note* Diagnosis Pre-operative examination- Primary Preoperative examination, unspecified Cystocele, midline Partial rectal prolapse Rectal prolapse Malignant neoplasm of upper-outer quadrant of left breast in female, estrogen receptor positive (HCC) Venous insufficiency (chronic) (peripheral) Unspecified venous (peripheral) insufficiency Lymphedema of left upper extremity Class 1 obesity due to excess calories with serious comorbidity and body mass index (BMI) of 32.0 to 32.9 in adult History of left breast cancer Abnormal ultrasound of breast Other (abnormal) findings on radiological examination of breast [facility]* Diagnosis Pre-operative examination- Primary Preoperative examination, unspecified Cystocele, midline Partial rectal prolapse Rectal prolapse Malignant neoplasm of upper-outer quadrant of left breast in female, estrogen receptor positive (HCC) Venous insufficiency (chronic) (peripheral) Unspecified venous (peripheral) insufficiency Lymphedema of left upper extremity Class 1 obesity due to excess calories with serious comorbidity and body mass index (BMI) of 32.0 to 32.9 in adult 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)- Primary Estrogen receptor positive status (ER+) Estrogen receptor positive status [ER+] Personal history of malignant neoplasm of breast 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) [facility]* Diagnosis Pre-operative examination- Primary Preoperative examination, unspecified Cystocele, midline Partial rectal prolapse Rectal prolapse Malignant neoplasm of upper-outer quadrant of left breast in female, estrogen receptor positive (HCC) Venous insufficiency (chronic) (peripheral) Unspecified venous (peripheral) insufficiency Lymphedema of left upper extremity Class 1 obesity due to excess calories with serious comorbidity and body mass index (BMI) of 32.0 to 32.9 in adult 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) Estrogen receptor positive status (ER+) Estrogen receptor positive status [ER+] Personal history of malignant neoplasm of breast [facility]* Diagnosis Pre-operative examination- Primary Preoperative examination, unspecified Cystocele, midline Partial rectal prolapse Rectal prolapse Malignant neoplasm of upper-outer quadrant of left breast in female, estrogen receptor positive (HCC) Venous insufficiency (chronic) (peripheral) Unspecified venous (peripheral) insufficiency Lymphedema of left upper extremity Class 1 obesity due to excess calories with serious comorbidity and body mass index (BMI) of 32.0 to 32.9 in adult 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) Estrogen receptor positive status (ER+) Estrogen receptor positive status [ER+] Personal history of malignant neoplasm of breast 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) documented in this encounter [facility] note* Diagnosis Malignant neoplasm of upper-outer 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, unspecified estrogen receptor status Estrogen receptor positive Estrogen receptor positive status [ER+] Personal history of malignant neoplasm of breast [facility] Diagnosis Pre-operative examination- Primary Preoperative examination, unspecified Cystocele, midline Partial rectal prolapse Rectal prolapse Malignant neoplasm of upper-outer quadrant of left breast in female, estrogen receptor positive (HCC) Venous insufficiency (chronic) (peripheral) Unspecified venous (peripheral) insufficiency Lymphedema of left upper extremity Class 1 obesity due to excess calories with serious comorbidity and body mass index (BMI) of 32.0 to 32.9 in adult 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)- Primary Malignant neoplasm of upper-outer 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, unspecified estrogen receptor status (HCC) [facility]* Diagnosis Pre-operative examination- Primary Preoperative examination, unspecified Cystocele, midline Partial rectal prolapse Rectal prolapse Malignant neoplasm of upper-outer quadrant of left breast in female, estrogen receptor positive (HCC) Venous insufficiency (chronic) (peripheral) Unspecified venous (peripheral) insufficiency Lymphedema of left upper extremity Class 1 obesity due to excess calories with serious comorbidity and body mass index (BMI) of 32.0 to 32.9 in adult Malignant neoplasm of upper-outer 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, unspecified estrogen receptor status (HCC) documented in this encounter [facility] note* Diagnosis Pre-operative examination- Primary Preoperative examination, unspecified Cystocele, midline Partial rectal prolapse Rectal prolapse Malignant neoplasm of upper-outer quadrant of left breast in female, estrogen receptor positive (HCC) Venous insufficiency (chronic) (peripheral) Unspecified venous (peripheral) insufficiency Lymphedema of left upper extremity Class 1 obesity due to excess calories with serious comorbidity and body mass index (BMI) of 32.0 to 32.9 in adult Malignant neoplasm of overlapping sites of right breast in female, estrogen receptor positive (HCC)- Primary documented in this encounter [facility] note* Diagnosis Pre-operative examination- Primary Preoperative examination, unspecified Cystocele, midline Partial rectal prolapse Rectal prolapse Malignant neoplasm of upper-outer quadrant of left breast in female, estrogen receptor positive (HCC) Venous insufficiency (chronic) (peripheral) Unspecified venous (peripheral) insufficiency Lymphedema of left upper extremity Class 1 obesity due to excess calories with serious comorbidity and body mass index (BMI) of 32.0 to 32.9 in adult 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)- Primary Estrogen receptor positive status (ER+) Estrogen receptor positive status [ER+] Personal history of malignant neoplasm of breast 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) documented in this encounter [facility] note* Diagnosis Pre-operative examination- Primary Preoperative examination, unspecified Cystocele, midline Partial rectal prolapse Rectal prolapse Malignant neoplasm of upper-outer quadrant of left breast in female, estrogen receptor positive (HCC) Venous insufficiency (chronic) (peripheral) Unspecified venous (peripheral) insufficiency Lymphedema of left upper extremity Class 1 obesity due to excess calories with serious comorbidity and body mass index (BMI) of 32.0 to 32.9 in adult Encounter for consultation- Primary Unspecified reason for consultation [facility]* Diagnosis Pre-operative examination- Primary Preoperative examination, unspecified Cystocele, midline Partial rectal prolapse Rectal prolapse Malignant neoplasm of upper-outer quadrant of left breast in female, estrogen receptor positive (HCC) Venous insufficiency (chronic) (peripheral) Unspecified venous (peripheral) insufficiency Lymphedema of left upper extremity Class 1 obesity due to excess calories with serious comorbidity and body mass index (BMI) of 32.0 to 32.9 in adult 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)- Primary [facility]* Diagnosis Pre-operative examination- Primary Preoperative examination, unspecified Cystocele, midline Partial rectal prolapse Rectal prolapse Malignant neoplasm of upper-outer quadrant of left breast in female, estrogen receptor positive (HCC) Venous insufficiency (chronic) (peripheral) Unspecified venous (peripheral) insufficiency Lymphedema of left upper extremity Class 1 obesity due to excess calories with serious comorbidity and body mass index (BMI) of 32.0 to 32.9 in adult Malignant neoplasm of overlapping sites of right breast in female, estrogen receptor positive (HCC)- Primary History of vitamin D deficiency Personal history of nutritional deficiency Disorder of bone, unspecified [facility]* Diagnosis Pre-operative examination- Primary Preoperative examination, unspecified Cystocele, midline Partial rectal prolapse Rectal prolapse Malignant neoplasm of upper-outer quadrant of left breast in female, estrogen receptor positive (HCC) Venous insufficiency (chronic) (peripheral) Unspecified venous (peripheral) insufficiency Lymphedema of left upper extremity Class 1 obesity due to excess calories with serious comorbidity and body mass index (BMI) of 32.0 to 32.9 in adult 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)- Primary [facility]* Diagnosis Pre-operative examination- Primary Preoperative examination, unspecified Cystocele, midline Partial rectal prolapse Rectal prolapse Malignant neoplasm of upper-outer quadrant of left breast in female, estrogen receptor positive (HCC) Venous insufficiency (chronic) (peripheral) Unspecified venous (peripheral) insufficiency Lymphedema of left upper extremity Class 1 obesity due to excess calories with serious comorbidity and body mass index (BMI) of 32.0 to 32.9 in adult 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)- Primary [facility]* Diagnosis Pre-operative examination- Primary Preoperative examination, unspecified Cystocele, midline Partial rectal prolapse Rectal prolapse Malignant neoplasm of upper-outer quadrant of left breast in female, estrogen receptor positive (HCC) Venous insufficiency (chronic) (peripheral) Unspecified venous (peripheral) insufficiency Lymphedema of left upper extremity Class 1 obesity due to excess calories with serious comorbidity and body mass index (BMI) of 32.0 to 32.9 in adult 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)- Primary [facility] Diagnosis Pre-operative examination- Primary Preoperative examination, unspecified Cystocele, midline Partial rectal prolapse Rectal prolapse Malignant neoplasm of upper-outer quadrant of left breast in female, estrogen receptor positive (HCC) Venous insufficiency (chronic) (peripheral) Unspecified venous (peripheral) insufficiency Lymphedema of left upper extremity Class 1 obesity due to excess calories with serious comorbidity and body mass index (BMI) of 32.0 to 32.9 in adult 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)- Primary documented in this encounter [facility] note* Diagnosis Pre-operative examination- Primary Preoperative examination, unspecified Cystocele, midline Partial rectal prolapse Rectal prolapse Malignant neoplasm of upper-outer quadrant of left breast in female, estrogen receptor positive (HCC) Venous insufficiency (chronic) (peripheral) Unspecified venous (peripheral) insufficiency Lymphedema of left upper extremity Class 1 obesity due to excess calories with serious comorbidity and body mass index (BMI) of 32.0 to 32.9 in adult 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)- Primary 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)- Primary Estrogen receptor positive status (ER+) Estrogen receptor positive status [ER+] Personal history of malignant neoplasm of breast 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) documented in this encounter [facility] note* Diagnosis Pre-operative examination- Primary Preoperative examination, unspecified Cystocele, midline Partial rectal prolapse Rectal prolapse Malignant neoplasm of upper-outer quadrant of left breast in female, estrogen receptor positive (HCC) Venous insufficiency (chronic) (peripheral) Unspecified venous (peripheral) insufficiency Lymphedema of left upper extremity Class 1 obesity due to excess calories with serious comorbidity and body mass index (BMI) of 32.0 to 32.9 in adult History of vitamin D deficiency Personal history of nutritional deficiency Disorder of bone, unspecified 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)- Primary 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) Estrogen receptor positive status (ER+) Estrogen receptor positive status [ER+] Personal history of malignant neoplasm of breast [facility]* Diagnosis Pre-operative examination- Primary Preoperative examination, unspecified Cystocele, midline Partial rectal prolapse Rectal prolapse Malignant neoplasm of upper-outer quadrant of left breast in female, estrogen receptor positive (HCC) Venous insufficiency (chronic) (peripheral) Unspecified venous (peripheral) insufficiency Lymphedema of left upper extremity Class 1 obesity due to excess calories with serious comorbidity and body mass index (BMI) of 32.0 to 32.9 in adult 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)- Primary 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) Estrogen receptor positive status (ER+) Estrogen receptor positive status [ER+] Personal history of malignant neoplasm of breast documented in this encounter [facility] note* Diagnosis Pre-operative examination- Primary Preoperative examination, unspecified Cystocele, midline Partial rectal prolapse Rectal prolapse Malignant neoplasm of upper-outer quadrant of left breast in female, estrogen receptor positive (HCC) Venous insufficiency (chronic) (peripheral) Unspecified venous (peripheral) insufficiency Lymphedema of left upper extremity Class 1 obesity due to excess calories with serious comorbidity and body mass index (BMI) of 32.0 to 32.9 in adult 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)- Primary documented in this encounter [facility] note* Diagnosis Pre-operative examination- Primary Preoperative examination, unspecified Cystocele, midline Partial rectal prolapse Rectal prolapse Malignant neoplasm of upper-outer quadrant of left breast in female, estrogen receptor positive (HCC) Venous insufficiency (chronic) (peripheral) Unspecified venous (peripheral) insufficiency Lymphedema of left upper extremity Class 1 obesity due to excess calories with serious comorbidity and body mass index (BMI) of 32.0 to 32.9 in adult Malignant neoplasm of overlapping sites of right breast in female, estrogen receptor positive (HCC)- Primary documented in this encounter [facility] note* Diagnosis Pre-operative examination- Primary Preoperative examination, unspecified Cystocele, midline Partial rectal prolapse Rectal prolapse Malignant neoplasm of upper-outer quadrant of left breast in female, estrogen receptor positive (HCC) Venous insufficiency (chronic) (peripheral) Unspecified venous (peripheral) insufficiency Lymphedema of left upper extremity Class 1 obesity due to excess calories with serious comorbidity and body mass index (BMI) of 32.0 to 32.9 in adult Medicare annual wellness visit, subsequent- Primary Routine general medical examination at a health care facility Screening for depression Encounter for screening examination for other mental health and behavioral disorders Age-related osteoporosis without current pathological fracture Senile osteoporosis Advance directive discussed with patient Other specified counseling Malignant neoplasm of upper-outer quadrant of left breast in female, estrogen receptor positive (HCC) Elevated blood sugar Other abnormal glucose Medication management Encounter for long-term (current) use of other medications Encounter for lipid screening for cardiovascular disease Screening for lipoid disorders [facility] Diagnosis Pre-operative examination- Primary Preoperative examination, unspecified Cystocele, midline Partial rectal prolapse Rectal prolapse Malignant neoplasm of upper-outer quadrant of left breast in female, estrogen receptor positive (HCC) Venous insufficiency (chronic) (peripheral) Unspecified venous (peripheral) insufficiency Lymphedema of left upper extremity Class 1 obesity due to excess calories with serious comorbidity and body mass index (BMI) of 32.0 to 32.9 in adult 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)- Primary 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) Estrogen receptor positive status (ER+) Estrogen receptor positive status [ER+] Personal history of malignant neoplasm of breast documented in this encounter [facility] note* Diagnosis Pre-operative examination- Primary Preoperative examination, unspecified Cystocele, midline Partial rectal prolapse Rectal prolapse Malignant neoplasm of upper-outer quadrant of left breast in female, estrogen receptor positive (HCC) Venous insufficiency (chronic) (peripheral) Unspecified venous (peripheral) insufficiency Lymphedema of left upper extremity Class 1 obesity due to excess calories with serious comorbidity and body mass index (BMI) of 32.0 to 32.9 in adult Malignant neoplasm of overlapping sites of right breast in female, estrogen receptor positive (HCC)- Primary documented in this encounter [facility] for referral (narrative)* Diagnostic Procedure Only (Routine) - Closed Specialty Diagnoses / Procedures Referred By Contac t Referred To Contact BR IMAGING Diagnoses Malignant neoplasm of upper-outer quadrant of left breast in female, estrogen receptor positive (HCC) Encounter for screening mammogram for high-risk patient Procedures [facility] SCREENING W LOIDA SCREENING BREAST DGTL LOIDA UNI/BILAT ADD ON SCREENING MAMMOGRAPHY BI 2-VIEW BREAST INC Effie Pickard APRN.CNP [address] [place] [address] [facility] [address] [place] [address] Referral ID Status Reason Start Date Expiration Date V isits Requested Visits Authorized [id number] Closed Auto-Generate d Referral 12/12/2020 01/11/2022 1 1 [facility] for referral (narrative)* Diagnostic Procedure Only (Routine) - Closed Specialty Diagnoses / Procedures Referred By Contac t Referred To Contact BR IMAGING Diagnoses Abnormal ultrasound of breast Procedures [facility] LT DIAGNOSTIC MAMMOGRAPHY COMPUTER-AIDED DETCJ Azra Calabrese MD [address] [place] [address] [facility] [address] [place] [address] Referral ID Status Reason Start Date Expiration Date V isits Requested Visits Authorized [id number] Closed Auto-Generate d Referral 12/28/2021 01/27/2023 1 1 T [facility] for referral (narrative)* Diagnostic Procedure Only (Routine) - Closed Specialty Diagnoses / Procedures Referred By Contac t Referred To Contact BR IMAGING Diagnoses Abnormal ultrasound of breast Procedures [facility] LT DIAGNOSTIC MAMMOGRAPHY COMPUTER-AIDED DETCJ Azra Calabrese MD [address] [place] [address] [facility] [address] [place] [address] Referral ID Status Reason Start Date Expiration Date V isits Requested Visits Authorized [id number] Closed Auto-Generate d Referral 12/28/2021 01/27/2023 1 1 [facility] for referral (narrative)* Diagnostic Procedure Only (Routine) - Pending Review Specialty Diagnoses / Procedures Referred By Contac t Referred To Contact BR IMAGING Diagnoses Abnormal mammogram Procedures US BREAST LTD LT US BREAST UNI REAL TIME WITH IMAGE LIMITED Azra Meeks MD [address] [place] [address] [facility] [address] [place] [address] Referral ID Status Reason Start Date Expiration Date Visits Requested Visits Authorized [id number] Pending Review Auto-Generat ed Referral 05/30/2022 02/01/2023 1 1 * Diagnostic Procedure Only (Routine) - Pending Review Specialty Diagnoses / Procedures Referred By Girishac t Referred To Contact BR IMAGING Diagnoses Abnormal mammogram Procedures [facility] LT DIAGNOSTIC MAMMOGRAPHY COMPUTER-AIDED DETCJ UNI Azra Meeks MD [address] [place] [address] [facility] [address] [place] [address] Referral ID Status Reason Start Date Expiration Date Visits Requested Visits Authorized [id number] Pending Review Auto-Generat ed Referral 05/30/2022 02/01/2023 1 1 [facility] for referral (narrative)* Diagnostic Procedure Only (Routine) - Authorized Specialty Diagnoses / Procedures Referred By Contac t Referred To Contact BR IMAGING Diagnoses Malignant neoplasm of upper-outer quadrant of left breast in female, estrogen receptor positive (HCC) Encounter for screening mammogram for high-risk patient Procedures [facility] SCREENING W LOIDA SCREENING DIGITAL BREAST TOMOSYNTHESIS BI SCREENING MAMMOGRAPHY BI 2-VIEW BREAST INC Effie Pickard APRN.SCRAP DROP ENGINEER [address] [place] [address] [facility] [address] [place] [address] Referral ID Status Reason Start Date Expiration Date Visits Requested Visits Authorized [id number] Authorized Auto-Generat ed Referral 10/23/2022 11/22/2023 1 1 [facility] for referral (narrative)* Diagnostic Procedure Only (Routine) - Authorized Specialty Diagnoses / Procedures [facility] To Contact [facility] Diagnoses Personal history of breast cancer Encounter for screening mammogram for high-risk patient Procedures [facility] SCREENING W LOIDA SCREENING DIGITAL BREAST TOMOSYNTHESIS BI SCREENING MAMMOGRAPHY BI 2-VIEW BREAST INC CAD Effie Vaz APRN.SCRAP DROP ENGINEER [address] [place] [address] [facility] [address] [place] [address] Referral ID Status Reason Start Date Expiration Date Visits Requested Visits Authorized [id number] Authorized Auto-Generat ed Referral 01/04/2023 02/03/2024 1 1 [facility] for referral (narrative)* Diagnostic Procedure Only (Routine) - Authorized Specialty Diagnoses / Procedures [facility] Ref[facility] To Contact [facility] Diagnoses Malignant neoplasm of upper-outer quadrant of left breast in female, estrogen receptor positive (HCC) Abnormal mammogram of right breast Procedures US BREAST LTD RIGHT US BREAST UNI REAL TIME WITH IMAGE LIMITED Effie Vaz APRN.SCRAP DROP ENGINEER [address] [place] [address] [facility] [address] [place] [address] Referral ID Status Reason Start Date Expiration Date Visits Requested Visits Authorized [id number] Authorized Auto-Generat ed Referral 01/06/2024 02/04/2025 1 1 * Diagnostic Procedure Only (Routine) - Authorized Specialty Diagnoses / Procedures [facility] Ref[facility] To Contact [facility] Diagnoses Malignant neoplasm of upper-outer quadrant of left breast in female, estrogen receptor positive (HCC) Abnormal mammogram of right breast Procedures [facility] RIGHT DIAGNOSTIC MAMMOGRAPHY COMPUTER-AIDED DETCJ UNI Effie Vaz APRN.SCRAP DROP ENGINEER [address] [place] [address] [facility] [address] [place] [address] Referral ID Status Reason Start Date Expiration Date Visits Requested Visits Authorized [id number] Authorized Auto-Generat ed Referral 01/06/2024 02/04/2025 1 1 [facility] for referral (narrative)* Diagnostic Procedure Only (Routine) - Closed Specialty Diagnoses / Procedures Referred By Contac t Referred To Contact BR IMAGING Diagnoses Malignant neoplasm of upper-outer quadrant of left breast in female, estrogen receptor positive (HCC) Abnormal mammogram of right breast Procedures US BREAST LTD RIGHT US BREAST UNI REAL TIME WITH IMAGE LIMITED Effie Vaz APRN.SCRAP DROP ENGINEER [address] [place] [address] [facility] [address] [place] [address] Referral ID Status Reason Start Date Expiration Date V isits Requested Visits Authorized [id number] Closed Auto-Generate d Referral 01/06/2024 02/04/2025 1 1 [facility] for referral (narrative)* Diagnostic Procedure Only (Routine) - New Request Specialty Diagnoses / Procedures Referred By Contac t Referred To Contact BR IMAGING Diagnoses History of left breast cancer Abnormal ultrasound of breast Procedures US BIOPSY BREAST RIGHT BX BREAST W/DEVICE 1ST LESION ULTRASOUND Azra Putnam MD [address] [facility] [facility] [place] [address] [facility] [address] [place] [address] Referral ID Status Reason Start Date Expiration Date Visits Requested Visits Authorized [id number] New Request Auto-Generat ed Referral 02/03/2024 03/04/2025 1 1 [facility] for referral (narrative)* Diagnostic Procedure Only (Routine) - Closed Specialty Diagnoses / Procedures Referred By Contac t Referred To Contact BR IMAGING Diagnoses History of left breast cancer Abnormal ultrasound of breast Procedures US BIOPSY BREAST RIGHT BX BREAST W/DEVICE 1ST LESION ULTRASOUND Azra Putnam MD [address] [place] [address] [facility] [address] [place] [address] Referral ID Status Reason Start Date Expiration Date V isits Requested Visits Authorized [id number] Closed Auto-Generate d Referral 02/03/2024 03/04/2025 1 1 [facility] for referral (narrative)* Outpatient Procedure (Routine) - New Request Specialty Diagnoses / Procedures Referred By Contac t Referred To [facility] Diagnoses 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) Estrogen receptor positive status (ER+) Personal history of malignant neoplasm of breast 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) Procedures ECG COMPLETE ECG ROUTINE ECG W/LEAST 12 LDS W/I&R Remington Sung [facility] [place] [address] [facility] [address] [place] [address] Referral ID Status Reason Start Date Expiration Date Visits Requested Visits Authorized [id number] New Request Auto-Generat ed Referral 4 03/09/2025 1 1 * Transition of Care (Routine) - Ref Not Required Specialty Diagnoses / Procedures Referred By Contac t Referred To Contact Diagnoses 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) Estrogen receptor positive status (ER+) Personal history of malignant neoplasm of breast 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) Procedures CONSULT TO MEDICAL GENETICS - CANCER Remington Sung MD [address] [place] [address] [address] Referral ID Status Reason Start Date Expiration Date Visits Requested Visits Authorized [id number] Ref Not Required PCP Requested Referral 4 03/09/2025 1 1 * Diagnostic Procedure Only (Routine) - Authorized Specialty Diagnoses / Procedures [facility] Ref[facility] To Contact [facility] Diagnoses 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) Estrogen receptor positive status (ER+) Personal history of malignant neoplasm of breast Procedures US AXILLA ONLY RIGHT US LMTD JOINT/OTH NONVASC XTR STRUX R-T W/Remington Raines [facility] [place] [address] [facility] [address] [facility] [place] [address] Referral ID Status Reason Start Date Expiration Date Visits Requested Visits Authorized [id number] Authorized Auto-Generat ed Referral 04/08/2025 1 1 [facility] for referral (narrative)* Diagnostic Procedure Only (Routine) - Closed Specialty Diagnoses / Procedures Referred By [facility] Referred To Contact BR IMAGING Diagnoses 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) Estrogen receptor positive status (ER+) Personal history of malignant neoplasm of breast Procedures US AXILLA ONLY RIGHT US LMTD JOINT/OTH NONVASC XTR STRUX R-T W/Remington Raines [facility] [place] [address] [facility] [address] [place] [address] Referral ID Status Reason Start Date Expiration Date V isits Requested Visits Authorized [id number] Closed Auto-Generate d Referral 03/09/2024 04/08/2025 1 1 [facility] for referral (narrative)* Diagnostic Procedure Only (Routine) - Closed Specialty Diagnoses / Procedures Referred By Lauren t Referred To Contact BR IMAGING Diagnoses Malignant neoplasm of upper-outer 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, unspecified estrogen receptor status (HCC) Procedures US LOC BREAST RIGHT PERQ BREAST LOC DEVICE PLACE[address] US IMAG Remington Sung MD [address] [address] [facility] [address] [place] [address] Referral ID Status Reason Start Date Expiration Date V isits Requested Visits Authorized [id number] Closed Auto-Generate d Referral 04/01/2024 04/17/2025 1 1 [facility] for referral (narrative)* Diagnostic Procedure Only (Routine) - New Request Specialty Diagnoses / Procedures Referred By Lauren patterson Referred To Contact XR IMAGING Diagnoses History of vitamin D deficiency Disorder of bone, unspecified Procedures DXA-AXIAL SKELETON DXA BONE DENSITY STUDY SITES AXIAL SKEL Ibrahima Dhaliwal DO [address] [place] [address] [place] [address] Referral ID Status Reason Start Date Expiration Date Visits Requested Visits Authorized [id number] New Request Auto-Generat ed Referral 05/14/2024 06/13/2025 1 1 [facility] for visit Narrative* Diagnostic Procedure Only (Routine) - Closed Specialty Diagnoses / Procedures Referred By Lauren patterson Referred To Contact BR IMAGING Diagnoses Malignant neoplasm of upper-outer quadrant of left breast in female, estrogen receptor positive (HCC) Encounter for screening mammogram for high-risk patient Procedures [facility] SCREENING W LOIDA SCREENING BREAST DGTL LOIDA UNI/BILAT ADD ON SCREENING MAMMOGRAPHY BI 2-VIEW BREAST INC Effie Pickard, DOMINGO.SCRAP DROP ENGINEER [address] [place] [address] [facility] [address] [place] [address] Referral ID Status Reason Start Date Expiration Date V isits Requested Visits Authorized [id number] Closed Auto-Generate d Referral 12/12/2020 01/11/2022 1 1 [facility] for visit Narrative* Diagnostic Procedure Only (Routine) - Closed Specialty Diagnoses / Procedures Referred By Lauren t Referred To Contact BR IMAGING Diagnoses Abnormal ultrasound of breast Procedures [facility] DIAGNOST[facility] LT DIAGNOSTIC MAMMOGRAPHY COMPUTER-AIDED DETCJ Azra Calabrese MD [address] [place] [address] [facility] [address] [place] [address] Referral ID Status Reason Start Date Expiration Date V isits Requested Visits Authorized [id number] Closed Auto-Generate d Referral 12/28/2021 01/27/2023 1 1 [facility] for visit Narrative* Diagnostic Procedure Only (Routine) - Closed Specialty Diagnoses / Procedures Referred By Lauren patterson Referred To Contact BR IMAGING Diagnoses Personal history of breast cancer Encounter for screening mammogram for high-risk patient Procedures [facility] SCREENING W LOIDA SCREENING DIGITAL BREAST TOMOSYNTHESIS BI SCREENING MAMMOGRAPHY BI 2-VIEW BREAST INC CAD Effie Vaz, BROOCH [employer] BRACELET MAKER.SCRAP DROP ENGINEER [address] [place] [address] [facility] [address] [place] [address] Referral ID Status Reason Start Date Expiration Date V isits Requested Visits Authorized [id number] Closed Auto-Generate d Referral 01/04/2023 02/03/2024 1 1 [facility] for visit Narrative* Diagnostic Procedure Only (Routine) - Closed Specialty Diagnoses / Procedures Referred By Lauren patterson Referred To Contact BR IMAGING Diagnoses Malignant neoplasm of upper-outer quadrant of left breast in female, estrogen receptor positive (HCC) Abnormal mammogram of right breast Procedures [facility] RIGHT DIAGNOSTIC MAMMOGRAPHY COMPUTER-AIDED DETCJ Effie Hunt, DOMINGO.SCRAP DROP ENGINEER [address] [place] [address] [facility] Imaging [address] [place] [address] Referral ID Status Reason Start Date Expiration Date V isits Requested Visits Authorized [id number] Closed Auto-Generate d Referral 01/06/2024 02/04/2025 1 1 [facility] for visit Narrative* Diagnostic Procedure Only (Routine) - Closed Specialty Diagnoses / Procedures [facility] Ref[facility] To Contact [facility] Diagnoses History of left breast cancer Abnormal ultrasound of breast Procedures US BIOPSY BREAST RIGHT BX BREAST W/DEVICE 1ST LESION ULTRASOUND GUID Azra Meeks MD [address] [place] [address] [facility] [address] [place] [address] Referral ID Status Reason Start Date Expiration Date V isits Requested Visits Authorized [id number] Closed Auto-Generate d Referral 02/03/2024 03/04/2025 1 1 [facility] for visit Narrative* Diagnostic Procedure Only (Routine) - Closed Specialty Diagnoses / Procedures [facility] Referred To Contact [facility] Diagnoses 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) Estrogen receptor positive status (ER+) Personal history of malignant neoplasm of breast Procedures US AXILLA ONLY RIGHT US LMTD JOINT/OTH NONVASC XTR STRUX R-T W/IMG Remington Sung MD [address] [place] [address] [facility] [address] [place] [address] Referral ID Status Reason Start Date Expiration Date V isits Requested Visits Authorized [id number] Closed Auto-Generate d Referral 03/09/2024 04/08/2025 1 1 [facility] for visit Narrative* Referral (Routine) - Open Specialty Diagnoses / Procedures Referred By [facility] Referred To Contact Diagnoses Malignant neoplasm of upper-outer 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, unspecified estrogen receptor status Estrogen receptor positive Personal history of malignant neoplasm of breast Procedures Genetic Sendout: [facility]-Expanded Panel [place] [address] Phone: tel: fax: Referral ID Status Reason Start Date Expiration Date V isits Requested Visits Authorized [id number] Open Specialty Services Required 03/19/2024 03/19/2025 1 1 [facility] for visit Narrative* Diagnostic Procedure Only (Routine) - Closed Specialty Diagnoses / Procedures Referred By Contac t Referred To Contact BR IMAGING Diagnoses Malignant neoplasm of upper-outer 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, unspecified estrogen receptor status (HCC) Procedures US LOC BREAST RIGHT PERQ BREAST LOC DEVICE PLACECA 1ST LES US IMAG Remington Sung MD [address] [address] [facility] [address] [place] [address] Referral ID Status Reason Start Date Expiration Date V isits Requested Visits Authorized [id number] Closed Auto-Generate d Referral 04/01/2024 04/17/2025 1 1 [facility] for visit Narrative* Diagnostic Procedure Only (Routine) - Closed Specialty Diagnoses / Procedures Referred By Contac t Referred To Contact XR IMAGING Diagnoses History of vitamin D deficiency Disorder of bone, unspecified Procedures DXA-AXIAL SKELETON DXA BONE DENSITY STUDY SITES AXIAL SKEL Ibrahima Dhaliwal, DO [address] [place] [address] Phone: tel: fax: [place] [phone] Referral ID Status Reason Start Date Expiration Date V isits Requested Visits Authorized [id number] Closed Auto-Generate d Referral 05/14/2024 06/13/2025 1 1 [facility] Summary Purpose Family History No Family History Records FoundNo Family History Records FoundNo Family History Records FoundNo Family History Records FoundNo Family History Records FoundNo Family History Records FoundNo Family History Records Found Advance Directives No Advanced Directives Records FoundDocuments on File Type Date 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 Advance Directive(s) 04/06/2021 9:55 AM Ks anned 04-06-2021 Advance Directive(s) 04/06/2021 9:55 AM Advance Directive(s) 03/24/2021 12:49 PM Advance Directive(s) 12/19/2020 7:40 AM Documents on File Type Date Recorded 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 RX HERE Chief Complaint OSTEOARTHRITIS BILAT ERAL KNEES. RX HERE RIGHT KNEE PASTORA PROTOCAL PREOP Additional Source Comments INFORMATION SOURCE (unrecogn ized section and content) DATE CREATED AUTHOR 03/27/2019 [facility] [place] DATE CREATED AUTHOR AUTHOR'S ORGANIZ ATION 04/12/2021 [facility] DATE CREATED AUTHOR AUTHOR'S ORGANIZ ATION 03/11/2024 [facility] DATE CREATED AUTHOR AUTHOR'S ORGANIZ ATION 04/13/2024 [facility] DATE CREATED AUTHOR AUTHOR'S ORGANIZ ATION 10/22/2024 [facility] DATE CREATED AUTHOR AUTHOR'S ORGANIZ ATION 10/24/2024 [facility] DATE CREATED AUTHOR AUTHOR'S ORGANIZ ATION 11/12/2024 [facility] Source Comments (unrecognize d section and content) In the event this informatio n is protected by the Federal Confidentiality of Alcohol and Drug Abuse Patient Records regulations: The Federal rules restrict any use of the information to criminally investigate or prosecute any alcohol or drug abuse patient.[facility] the event this information is protected by the Federal Confidentiality of Alcohol and Drug Abuse Patient Records regulations: The Federal rules restrict any use of the information to criminally investigate or prosecute any alcohol or drug abuse patient.[facility] the event this information is protected by the Federal Confidentiality of Alcohol and Drug Abuse Patient Records regulations: The Federal rules restrict any use of the information to criminally investigate or prosecute any alcohol or drug abuse patient.[facility] the event this information is protected by the Federal Confidentiality of Alcohol and Drug Abuse Patient Records regulations: The Federal rules restrict any use of the information to criminally investigate or prosecute any alcohol or drug abuse patient.[facility] the event this information is protected by the Federal Confidentiality of Alcohol and Drug Abuse Patient Records regulations: The Federal rules restrict any use of the information to criminally investigate or prosecute any alcohol or drug abuse patient.[facility] the event this information is protected by the Federal Confidentiality of Alcohol and Drug Abuse Patient Records regulations: The Federal rules restrict any use of the information to criminally investigate or prosecute any alcohol or drug abuse patient.[facility] the event this information is protected by the Federal Confidentiality of Alcohol and Drug Abuse Patient Records regulations: The Federal rules restrict any use of the information to criminally investigate or prosecute any alcohol or drug abuse patient.[facility] the event this information is protected by the Federal Confidentiality of Alcohol and Drug Abuse Patient Records regulations: The Federal rules restrict any use of the information to criminally investigate or prosecute any alcohol or drug abuse patient.[facility] the event this information is protected by the Federal Confidentiality of Alcohol and Drug Abuse Patient Records regulations: The Federal rules restrict any use of the information to criminally investigate or prosecute any alcohol or drug abuse patient.[facility] the event this information is protected by the Federal Confidentiality of Alcohol and Drug Abuse Patient Records regulations: The Federal rules restrict any use of the information to criminally investigate or prosecute any alcohol or drug abuse patient.[facility] the event this information is protected by the Federal Confidentiality of Alcohol and Drug Abuse Patient Records regulations: The Federal rules restrict any use of the information to criminally investigate or prosecute any alcohol or drug abuse patient.[facility] the event this information is protected by the Federal Confidentiality of Alcohol and Drug Abuse Patient Records regulations: The Federal rules restrict any use of the information to criminally investigate or prosecute any alcohol or drug abuse patient.[facility] the event this information is protected by the Federal Confidentiality of Alcohol and Drug Abuse Patient Records regulations: The Federal rules restrict any use of the information to criminally investigate or prosecute any alcohol or drug abuse patient.[facility] the event this information is protected by the Federal Confidentiality of Alcohol and Drug Abuse Patient Records regulations: The Federal rules restrict any use of the information to criminally investigate or prosecute any alcohol or drug abuse patient.[facility] the event this information is protected by the Federal Confidentiality of Alcohol and Drug Abuse Patient Records regulations: The Federal rules restrict any use of the information to criminally investigate or prosecute any alcohol or drug abuse patient.[facility]In the event this information is protected by the Federal Confidentiality of Alcohol and Drug Abuse Patient Records regulations: The Federal rules restrict any use of the information to criminally investigate or prosecute any alcohol or drug abuse patient.[facility]In the event this information is protected by the Federal Confidentiality of Alcohol and Drug Abuse Patient Records regulations: The Federal rules restrict any use of the information to criminally investigate or prosecute any alcohol or drug abuse patient.[facility]In the event this information is protected by the Federal Confidentiality of Alcohol and Drug Abuse Patient Records regulations: The Federal rules restrict any use of the information to criminally investigate or prosecute any alcohol or drug abuse patient.[facility]In the event this information is protected by the Federal Confidentiality of Alcohol and Drug Abuse Patient Records regulations: The Federal rules restrict any use of the information to criminally investigate or prosecute any alcohol or drug abuse patient.[facility]In the event this information is protected by the Federal Confidentiality of Alcohol and Drug Abuse Patient Records regulations: The Federal rules restrict any use of the information to criminally investigate or prosecute any alcohol or drug abuse patient.[facility]In the event this information is protected by the Federal Confidentiality of Alcohol and Drug Abuse Patient Records regulations: The Federal rules restrict any use of the information to criminally investigate or prosecute any alcohol or drug abuse patient.[facility]In the event this information is protected by the Federal Confidentiality of Alcohol and Drug Abuse Patient Records regulations: The Federal rules restrict any use of the information to criminally investigate or prosecute any alcohol or drug abuse patient.[facility] HospitalIn the event this information is protected by the Federal Confidentiality of Alcohol and Drug Abuse Patient Records regulations: The Federal rules restrict any use of the information to criminally investigate or prosecute any alcohol or drug abuse patient.[facility]In the event this information is protected by the Federal Confidentiality of Alcohol and Drug Abuse Patient Records regulations: The Federal rules restrict any use of the information to criminally investigate or prosecute any alcohol or drug abuse patient.[facility]In the event this information is protected by the Federal Confidentiality of Alcohol and Drug Abuse Patient Records regulations: The Federal rules restrict any use of the information to criminally investigate or prosecute any alcohol or drug abuse patient.[facility] HospitalIn the event this information is protected by the Federal Confidentiality of Alcohol and Drug Abuse Patient Records regulations: The Federal rules restrict any use of the information to criminally investigate or prosecute any alcohol or drug abuse patient.[facility] HospitalIn the event this information is protected by the Federal Confidentiality of Alcohol and Drug Abuse Patient Records regulations: The Federal rules restrict any use of the information to criminally investigate or prosecute any alcohol or drug abuse patient.[facility]In the event this information is protected by the Federal Confidentiality of Alcohol and Drug Abuse Patient Records regulations: The Federal rules restrict any use of the information to criminally investigate or prosecute any alcohol or drug abuse patient.[facility]In the event this information is protected by the Federal Confidentiality of Alcohol and Drug Abuse Patient Records regulations: The Federal rules restrict any use of the information to criminally investigate or prosecute any alcohol or drug abuse patient.[facility]In the event this information is protected by the Federal Confidentiality of Alcohol and Drug Abuse Patient Records regulations: The Federal rules restrict any use of the information to criminally investigate or prosecute any alcohol or drug abuse patient.[facility] HospitalIn the event this information is protected by the Federal Confidentiality of Alcohol and Drug Abuse Patient Records regulations: The Federal rules restrict any use of the information to criminally investigate or prosecute any alcohol or drug abuse patient.[facility]In the event this information is protected by the Federal Confidentiality of Alcohol and Drug Abuse Patient Records regulations: The Federal rules restrict any use of the information to criminally investigate or prosecute any alcohol or drug abuse patient.[facility]In the event this information is protected by the Federal Confidentiality of Alcohol and Drug Abuse Patient Records regulations: The Federal rules restrict any use of the information to criminally investigate or prosecute any alcohol or drug abuse patient.[facility]In the event this information is protected by the Federal Confidentiality of Alcohol and Drug Abuse Patient Records regulations: The Federal rules restrict any use of the information to criminally investigate or prosecute any alcohol or drug abuse patient.[facility] HospitalIn the event this information is protected by the Federal Confidentiality of Alcohol and Drug Abuse Patient Records regulations: The Federal rules restrict any use of the information to criminally investigate or prosecute any alcohol or drug abuse patient.[facility] HospitalIn the event this information is protected by the Federal Confidentiality of Alcohol and Drug Abuse Patient Records regulations: The Federal rules restrict any use of the information to criminally investigate or prosecute any alcohol or drug abuse patient.[facility] HospitalIn the event this information is protected by the Federal Confidentiality of Alcohol and Drug Abuse Patient Records regulations: The Federal rules restrict any use of the information to criminally investigate or prosecute any alcohol or drug abuse patient.[facility] HospitalIn the event this information is protected by the Federal Confidentiality of Alcohol and Drug Abuse Patient Records regulations: The Federal rules restrict any use of the information to criminally investigate or prosecute any alcohol or drug abuse patient.[facility] HospitalIn the event this information is protected by the Federal Confidentiality of Alcohol and Drug Abuse Patient Records regulations: The Federal rules restrict any use of the information to criminally investigate or prosecute any alcohol or drug abuse patient.[facility] HospitalIn the event this information is protected by the Federal Confidentiality of Alcohol and Drug Abuse Patient Records regulations: The Federal rules restrict any use of the information to criminally investigate or prosecute any alcohol or drug abuse patient.[facility] HospitalIn the event this information is protected by the Federal Confidentiality of Alcohol and Drug Abuse Patient Records regulations: The Federal rules restrict any use of the information to criminally investigate or prosecute any alcohol or drug abuse patient.[facility] HospitalIn the event this information is protected by the Federal Confidentiality of Alcohol and Drug Abuse Patient Records regulations: The Federal rules restrict any use of the information to criminally investigate or prosecute any alcohol or drug abuse patient.[facility] HospitalIn the event this information is protected by the Federal Confidentiality of Alcohol and Drug Abuse Patient Records regulations: The Federal rules restrict any use of the information to criminally investigate or prosecute any alcohol or drug abuse patient.[facility] HospitalIn the event this information is protected by the Federal Confidentiality of Alcohol and Drug Abuse Patient Records regulations: The Federal rules restrict any use of the information to criminally investigate or prosecute any alcohol or drug abuse patient.[facility] HospitalIn the event this information is protected by the Federal Confidentiality of Alcohol and Drug Abuse Patient Records regulations: The Federal rules restrict any use of the information to criminally investigate or prosecute any alcohol or drug abuse patient.[facility] HospitalIn the event this information is protected by the Federal Confidentiality of Alcohol and Drug Abuse Patient Records regulations: The Federal rules restrict any use of the information to criminally investigate or prosecute any alcohol or drug abuse patient.[facility] HospitalIn the event this information is protected by the Federal Confidentiality of Alcohol and Drug Abuse Patient Records regulations: The Federal rules restrict any use of the information to criminally investigate or prosecute any alcohol or drug abuse patient.[facility] HospitalIn the event this information is protected by the Federal Confidentiality of Alcohol and Drug Abuse Patient Records regulations: The Federal rules restrict any use of the information to criminally investigate or prosecute any alcohol or drug abuse patient.[facility] HospitalIn the event this information is protected by the Federal Confidentiality of Alcohol and Drug Abuse Patient Records regulations: The Federal rules restrict any use of the information to criminally investigate or prosecute any alcohol or drug abuse patient.[facility] HospitalIn the event this information is protected by the Federal Confidentiality of Alcohol and Drug Abuse Patient Records regulations: The Federal rules restrict any use of the information to criminally investigate or prosecute any alcohol or drug abuse patient.[facility] HospitalIn the event this information is protected by the Federal Confidentiality of Alcohol and Drug Abuse Patient Records regulations: The Federal rules restrict any use of the information to criminally investigate or prosecute any alcohol or drug abuse patient.[facility] HospitalIn the event this information is protected by the Federal Confidentiality of Alcohol and Drug Abuse Patient Records regulations: The Federal rules restrict any use of the information to criminally investigate or prosecute any alcohol or drug abuse patient.[facility] HospitalIn the event this information is protected by the Federal Confidentiality of Alcohol and Drug Abuse Patient Records regulations: The Federal rules restrict any use of the information to criminally investigate or prosecute any alcohol or drug abuse patient.[facility] HospitalIn the event this information is protected by the Federal Confidentiality of Alcohol and Drug Abuse Patient Records regulations: The Federal rules restrict any use of the information to criminally investigate or prosecute any alcohol or drug abuse patient.[facility] HospitalIn the event this information is protected by the Federal Confidentiality of Alcohol and Drug Abuse Patient Records regulations: The Federal rules restrict any use of the information to criminally investigate or prosecute any alcohol or drug abuse patient.[facility] HospitalIn the event this information is protected by the Federal Confidentiality of Alcohol and Drug Abuse Patient Records regulations: The Federal rules restrict any use of the information to criminally investigate or prosecute any alcohol or drug abuse patient.[facility] HospitalIn the event this information is protected by the Federal Confidentiality of Alcohol and Drug Abuse Patient Records regulations: The Federal rules restrict any use of the information to criminally investigate or prosecute any alcohol or drug abuse patient.[facility] HospitalIn the event this information is protected by the Federal Confidentiality of Alcohol and Drug Abuse Patient Records regulations: The Federal rules restrict any use of the information to criminally investigate or prosecute any alcohol or drug abuse patient.[facility] HospitalIn the event this information is protected by the Federal Confidentiality of Alcohol and Drug Abuse Patient Records regulations: The Federal rules restrict any use of the information to criminally investigate or prosecute any alcohol or drug abuse patient.[facility] HospitalIn the event this information is protected by the Federal Confidentiality of Alcohol and Drug Abuse Patient Records regulations: The Federal rules restrict any use of the information to criminally investigate or prosecute any alcohol or drug abuse patient.[facility] HospitalIn the event this information is protected by the Federal Confidentiality of Alcohol and Drug Abuse Patient Records regulations: The Federal rules restrict any use of the information to criminally investigate or prosecute any alcohol or drug abuse patient.[facility] HospitalIn the event this information is protected by the Federal Confidentiality of Alcohol and Drug Abuse Patient Records regulations: The Federal rules restrict any use of the information to criminally investigate or prosecute any alcohol or drug abuse patient.[facility] HospitalIn the event this information is protected by the Federal Confidentiality of Alcohol and Drug Abuse Patient Records regulations: The Federal rules restrict any use of the information to criminally investigate or prosecute any alcohol or drug abuse patient.[facility] HospitalIn the event this information is protected by the Federal Confidentiality of Alcohol and Drug Abuse Patient Records regulations: The Federal rules restrict any use of the information to criminally investigate or prosecute any alcohol or drug abuse patient.[facility] HospitalIn the event this information is protected by the Federal Confidentiality of Alcohol and Drug Abuse Patient Records regulations: The Federal rules restrict any use of the information to criminally investigate or prosecute any alcohol or drug abuse patient.[facility] HospitalIn the event this information is protected by the Federal Confidentiality of Alcohol and Drug Abuse Patient Records regulations: The Federal rules restrict any use of the information to criminally investigate or prosecute any alcohol or drug abuse patient.[facility] HospitalIn the event this information is protected by the Federal Confidentiality of Alcohol and Drug Abuse Patient Records regulations: The Federal rules restrict any use of the information to criminally investigate or prosecute any alcohol or drug abuse patient.[facility] HospitalIn the event this information is protected by the Federal Confidentiality of Alcohol and Drug Abuse Patient Records regulations: The Federal rules restrict any use of the information to criminally investigate or prosecute any alcohol or drug abuse patient.[facility] HospitalIn the event this information is protected by the Federal Confidentiality of Alcohol and Drug Abuse Patient Records regulations: The Federal rules restrict any use of the information to criminally investigate or prosecute any alcohol or drug abuse patient.[facility] HospitalIn the event this information is protected by the Federal Confidentiality of Alcohol and Drug Abuse Patient Records regulations: The Federal rules restrict any use of the information to criminally investigate or prosecute any alcohol or drug abuse patient.[facility] Reason for Visit (unrecogniz ed section and content) Reason Comments Pain (RT) thumb pain rate d 4, x1 month reported Hx splinter Reason Comments Established Patient Reason Comments Radiology US Reason Comments Medicare Wellness Exam Reason Comments Consult Left Breast Reason Comments Results Reason Comments Results Reason Onset Date Comments Population Health Navigation Outreach 10/10/2022 [facility] Reason Comments Orders Reason Comments Established Patient Reason Comments Outside [id number] Ordered Reason Comments Outside Imaging Reason Comments Pre-Op Exam Reason Comments Mammogram Result Call Back right breast diag mamm and us per Reason Comments Radiology US Specialty Diagnoses / Procedures Referred By Contac t Referred To Contact BR IMAGING Diagnoses Malignant neoplasm of upper-outer quadrant of left breast in female, estrogen receptor positive (HCC) Abnormal mammogram of right breast Procedures US BREAST LTD RIGHT US BREAST UNI REAL TIME WITH IMAGE LIMITED Effie Vaz APRN.SCRAP DROP ENGINEER [address] [place] [address] [facility] [address] [place] [address] Referral ID Status Reason Start Date Expiration Date V isits Requested Visits Authorized [id number] Closed Auto-Generate d Referral 01/06/2024 02/04/2025 1 1 Reason Comments Follow Up Reason Comments Breast Cancer Reason Comments Follow Up Reason Comments EKG Reason Comments Breast class Reason Comments Consult Outside facility - g enetics Reason Comments New Patient Reason Comments Breast Cancer Reason Comments Consult Reason Comments Orders Reason Comments Patient Education Reason Comments Radiotherapy On-treatment Visit Reason Onset Date Comments Simulation Request Form 05/18/2024 Reason Comments Recheck Reason Comments Breast Cancer Care Teams (unrecognized sec tion and content) Team Status: Active Member Role Status Dates Dr. Gerardo Saleh MD Primary Care Provider Active Team Status: Active Member Role Status Dates Dr. Gerardo Saleh MD Primary Care Provider Active Dr. Cassy Walker MD Attending Provider Active Dr. Justin Das MD Referring Provider Active Team Status: Inactive Member Role Status Dates Dr. Gerardo Saleh MD Primary Care Provider Active Dr. Justin Das MD Attending Provider, [facility] Active Team Status: Inactive Member Role Status Dates Dr. Gerardo Saleh MD Primary Care Provider Active Dr. Justin Das MD Attending Provider Active Rolled Glass Crosscutter Relationship Specialty Start Date End Date Gerardo Saleh MD [address] [place] [address] PCP - General Family Practice 02/10/19 Juan Lopez MD, [address] [place] [address] Physician Radiation Oncology 01/30/16 Rolled Glass Crosscutter Relationship Specialty Start Date End Date Gerardo Saleh MD [address] [place] [address] PCP - General Family Practice 02/10/19 Juan Lopez MD, [address] [place] [address] Physician Radiation Oncology 01/30/16 Rolled Glass Crosscutter Relationship Specialty Start Date End Date Gerardo Saleh MD [address] [place] [address] PCP - General Family Practice 02/10/19 Juan Lopez MD, [address] [place] [address] Physician Radiation Oncology 01/30/16 Rolled Glass Crosscutter Relationship Specialty Start Date End Date Gerardo Saleh MD [address] [place] [address] PCP - General Family Practice 02/10/19 Juan Lopez MD, [address] [place] [address] Physician Radiation Oncology 01/30/16 Rolled Glass Crosscutter Relationship Specialty Start Date End Date Gerardo Saleh MD [address] [place] [address] PCP - General Family Practice 02/10/19 Juan Lopez MD, [address] [place] [address] Physician Radiation Oncology 01/30/16 Rolled Glass Crosscutter Relationship Specialty Start Date End Date Gerardo Saleh MD [address] [place] [address] PCP - General Family Practice 02/10/19 Juan Lopez MD, [address] [place] [address] Physician Radiation Oncology 01/30/16 Rolled Glass Crosscutter Relationship Specialty Start Date End Date Gerardo Saleh MD [address] [place] [address] PCP - General Family Practice 02/10/19 Juan Lopez MD, [address] [place] [address] Physician Radiation Oncology 01/30/16 Rolled Glass Crosscutter Relationship Specialty Start Date End Date Gerardo Saleh MD [address] [place] [address] PCP - General Family Practice 02/10/19 Juan Lopez MD, MD [address] [place] [address] Physician Radiation Oncology 01/30/16 Rolled Glass Crosscutter Relationship Specialty Start Date End Date Gerardo Saleh MD [address] [place] [address] PCP - General Family Practice 02/10/19 Juan Lopez MD, [address] [place] [address] Physician Radiation Oncology 01/30/16 Rolled Glass Crosscutter Relationship Specialty Start Date End Date Gerardo Saleh MD [address] [place] [address] PCP - General Family Practice 02/10/19 Juan Lopez MD, [address] [place] [address] Physician Radiation Oncology 01/30/16 Rolled Glass Crosscutter Relationship Specialty Start Date End Date Gerardo Saleh MD [address] [place] [address] PCP - General Family Practice 02/10/19 Juan Lopez MD, [address] [place] [address] Physician Radiation Oncology 01/30/16 Rolled Glass Crosscutter Relationship Specialty Start Date End Date Gerardo Saleh MD [address] [place] [address] PCP - General Family Medicine 02/10/19 Juan Lopez MD, [address] [place] [address] Physician Radiation Oncology 01/30/16 Rolled Glass Crosscutter Relationship Specialty Start Date End Date Gerardo Saleh MD [address] [place] [address] PCP - General Family Medicine 02/10/19 Juan Lopez MD, [address] [facility] [place] [address] Physician Radiation Oncology 01/30/16 Rolled Glass Crosscutter Relationship Specialty Start Date End Date Gerardo Saleh MD [address] [facility] [place] [address] PCP - General Family Medicine 02/10/19 Juan Lopez MD, [address] [place] [address] Physician Radiation Oncology 01/30/16 Rolled Glass Crosscutter Relationship Specialty Start Date End Date Gerardo Saleh MD [address] [place] [place] [address] PCP - General Family Medicine 02/10/19 Juan Lopez MD, [address] [place] [address] Physician Radiation Oncology 01/30/16 Rolled Glass Crosscutter Relationship Specialty Start Date End Date Gerardo Saleh MD [address] [place] [address] PCP - General Family Medicine 02/10/19 Juan Lopez MD, [address] [place] [address] Physician Radiation Oncology 01/30/16 Rolled Glass Crosscutter Relationship Specialty Start Date End Date Gerardo Saleh MD [address] [place] [address] PCP - General Family Medicine 02/10/19 Juan Lopez MD [address] [place] [address] Physician Radiation Oncology 01/30/16 Rolled Glass Crosscutter Relationship Specialty Start Date End Date Gerardo Saleh MD [address] [place] [address] PCP - General Family Medicine 02/10/19 Juan Lopez MD [address] [place] [address] Physician Radiation Oncology 01/30/16 Rolled Glass Crosscutter Relationship Specialty Start Date End Date Gerardo Saleh MD [address] [place] [address] PCP - General Family Medicine 02/10/19 Juan Lopez MD [address] [place] [address] Physician Radiation Oncology 01/30/16 Rolled Glass Crosscutter Relationship Specialty Start Date End Date Gerardo Saleh MD [address] [facility] [place] [address] PCP - General Family Medicine 02/10/19 Juan Lopez MD [address] [place] [address] Physician Radiation Oncology 01/30/16 Rolled Glass Crosscutter Relationship Specialty Start Date End Date Gerardo Saleh MD [address] [facility] [place] [address] PCP - General Family Medicine 02/10/19 Juan Lopez MD [address] [place] [address] Physician Radiation Oncology 01/30/16 Rolled Glass Crosscutter Relationship Specialty Start Date End Date Geradro Saleh MD [address] [facility] [place] [address] PCP - General Family Medicine 02/10/19 Juan Lopez MD [address] [place] [address] Physician Radiation Oncology 01/30/16 Rolled Glass Crosscutter Relationship Specialty Start Date End Date Gerardo Saleh MD [address] [facility] [place] [address] PCP - General Family Medicine 02/10/19 Juan Lopez MD [address] [place] [address] Physician Radiation Oncology 01/30/16 Rolled Glass Crosscutter Relationship Specialty Start Date End Date Gerardo Saleh MD [address] [place] [address] PCP - General Family Medicine 02/10/19 Juan Lopez MD [address] [place] [address] Physician Radiation Oncology 01/30/16 Rolled Glass Crosscutter Relationship Specialty Start Date End Date Gerardo Saleh MD [address] [place] [address] PCP - General Family Medicine 02/10/19 Juan Lopez MD [address] [place] [address] Physician Radiation Oncology 01/30/16 Rolled Glass Crosscutter Relationship Specialty Start Date End Date Gerardo Saleh MD [address] [place] [address] PCP - General Family Medicine 02/10/19 Juan Lopez MD [address] [place] [address] Physician Radiation Oncology 01/30/16 Rolled Glass Crosscutter Relationship Specialty Start Date End Date Gerardo Saleh MD [address] [place] [address] PCP - General Family Medicine 02/10/19 Juan Lopez MD [address] [place] [address] Physician Radiation Oncology 01/30/16 Ibrhaima Dhaliwal DO [address] [place] [address] Hematology/Oncology 03/09/24 Rolled Glass Crosscutter Relationship Specialty Start Date End Date Gerardo Saleh MD [address] [place] [address] PCP - General Family Medicine 02/10/19 Juan Lopez MD [address] [place] [address] Physician Radiation Oncology 01/30/16 Ibrahima Dhaliwal DO [address] [place] [address] Hematology/Oncology 03/09/24 Rolled Glass Crosscutter Relationship Specialty Start Date End Date Gerardo Saleh MD [address] [place] [address] PCP - General Family Medicine 02/10/19 Juan Lopez MD [address] [place] [address] Physician Radiation Oncology 01/30/16 Ibrahima Dhaliwal DO [address] [place] [address] Hematology/Oncology 03/09/24 Rolled Glass Crosscutter Relationship Specialty Start Date End Date Gerardo Saleh MD [address] [place] [address] PCP - General Family Medicine 02/10/19 Juan Lopez MD [address] [place] [address] Physician Radiation Oncology 01/30/16 Ibrahima Dhaliwal DO [address] [place] [address] Hematology/Oncology 03/09/24 Rolled Glass Crosscutter Relationship Specialty Start Date End Date Gerardo Saleh MD [address] [place] [address] PCP - General Family Medicine 02/10/19 Juan Lopez MD [address] [place] [address] Physician Radiation Oncology 01/30/16 Ibrahima Dhaliwal DO [address] [place] [address] Hematology/Oncology 03/09/24 Rolled Glass Crosscutter Relationship Specialty Start Date End Date Gerardo Saleh MD [address] [place] [address] PCP - General Family Medicine 02/10/19 Juan Lopez MD [address] [place] [address] Physician Radiation Oncology 01/30/16 Ibrahima Dhaliwal DO [address] [place] [address] Hematology/Oncology 03/09/24 Rolled Glass Crosscutter Relationship Specialty Start Date End Date Gerardo Saleh MD [address] [place] [address] PCP - General Family Medicine 02/10/19 Juan Lopez MD [address] [place] [address] Physician Radiation Oncology 01/30/16 Ibrahima Dhaliwal DO [address] [place] [address] Hematology/Oncology 03/09/24 Rolled Glass Crosscutter Relationship Specialty Start Date End Date Gerardo Saleh MD [address] [place] [address] PCP - General Family Medicine 02/10/19 Juan Lopez MD [address] [place] [address] Physician Radiation Oncology 01/30/16 Ibrahima Dhaliwal DO [address] [place] [address] Hematology/Oncology 03/09/24 Rolled Glass Crosscutter Relationship Specialty Start Date End Date Gerardo Saleh MD [address] [place] [address] PCP - General Family Medicine 02/10/19 Juan Lopez MD [address] [place] [address] Physician Radiation Oncology 01/30/16 Ibrahima Dhaliwal DO [address] [place] [address] Hematology/Oncology 03/09/24 Rolled Glass Crosscutter Relationship Specialty Start Date End Date Pcp, [place] [address] PCP - General Pediatrics 03/19/24 Remington Sung MD [address] [place] [address] General Surgery 03/10/24 Mary Beth Chen [place] [address] Genetic Counselor Genetics 03/19/24 Rolled Glass Crosscutter Relationship Specialty Start Date End Date Gearrdo Saleh MD [address] [place] [address] PCP - General Family Medicine 02/10/19 Juan Lopez MD [address] [facility] [place] [address] Physician Radiation Oncology 01/30/16 Ibrahima Dhaliwal DO [address] [facility] [place] [address] Hematology/Oncology 03/09/24 Rolled Glass Crosscutter Relationship Specialty Start Date End Date Gerardo Saleh MD [address] [place] [address] PCP - General Family Medicine 02/10/19 Juan Lopez MD [address] [facility] [address] Physician Radiation Oncology 01/30/16 Ibrahima Dhaliwal DO [address] [facility] [place] [address] Hematology/Oncology 03/09/24 Rolled Glass Crosscutter Relationship Specialty Start Date End Date Gerardo Saleh MD [address] [place] [address] PCP - General Family Medicine 02/10/19 Juan Lopez MD [address] [place] [address] Physician Radiation Oncology 01/30/16 Ibrahima Dhaliwal DO [address] [place] [address] Hematology/Oncology 03/09/24 Rolled Glass Crosscutter Relationship Specialty Start Date End Date Gerardo Saleh MD [address] [place] [address] PCP - General Family Medicine 02/10/19 Juan Lopez MD [address] [place] [address] Physician Radiation Oncology 01/30/16 Ibrahima Dhaliwal DO [address] [place] [address] Hematology/Oncology 03/09/24 Rolled Glass Crosscutter Relationship Specialty Start Date End Date Gerardo Saleh MD [address] [place] [address] PCP - General Family Medicine 02/10/19 Juan Lopez MD [address] [place] [address] Physician Radiation Oncology 01/30/16 Ibrahima Dhaliwal DO [address] [place] [address] Hematology/Oncology 03/09/24 Lizeth Sifuentes APRN.SCRAP DROP ENGINEER [address] [place] [address] Cement Crusher Operator [facility] 04/04/24 Tiffany Ugarte PA-C [address] [place] [address] Cement Crusher Operator [facility] 04/04/24 Rolled Glass Crosscutter Relationship Specialty Start Date End Date Gerardo Saleh MD [address] [place] [address] PCP - General Family Medicine 02/10/19 Juan Lopez MD [address] [place] [address] Physician Radiation Oncology 01/30/16 Ibrahima Dhaliwal DO [address] [place] [address] Hematology/Oncology 03/09/24 Lizeth Sifuentes APRN.CNP [address] [place] [address] Cement Crusher Operator [facility] 04/04/24 Tiffany Ugarte PA-C [address] [place] [address] Cement Crusher Operator [facility] 04/04/24 Rolled Glass Crosscutter Relationship Specialty Start Date End Date Gerardo Saleh MD [address] [place] [address] PCP - General Family Medicine 02/10/19 Juan Lopez MD [address] [place] [address] Physician Radiation Oncology 01/30/16 Ibrahima Dhaliwal DO [address] [place] [address] Hematology/Oncology 03/09/24 Lizeth Sifuentes APRN.SCRAP DROP ENGINEER [address] [place] [address] Cement [facility]her [facility] 04/04/24 Tiffany Ugarte PA-C [address] [facility] [place] [address] Formerly [facility] 04/04/24 Remington Sung MD [address] [facility] [place] [address] General Surgery 04/16/24 Rolled Glass Crosscutter Relationship Specialty Start Date End Date Gerardo Saleh MD [address] [facility] [place] [address] PCP - General Family Medicine 02/10/19 Juan Lopez MD [address] [place] [address] Physician Radiation Oncology 01/30/16 Ibrahima Dhaliwal DO [address] [facility] [place] [place] [address] Hematology/Oncology 03/09/24 Lizeth Sifuentes APRN.SCRAP DROP ENGINEER [address] [place] [place] [address] Formerly [facility] 04/04/24 Tiffany Ugarte PA-C [address] [facility] [place] [address] Cement Crusher Operator [facility] 04/04/24 Remington Sung MD [facility] [place] [address] General Surgery 04/16/24 Rolled Glass Crosscutter Relationship Specialty Start Date End Date Gerardo Saleh MD [address] [place] [address] PCP - General Family Medicine 02/10/19 Juan Lopez MD [address] [place] [address] Physician Radiation Oncology 01/30/16 Ibrahima Dhaliwal DO [address] [place] [address] Hematology/Oncology 03/09/24 Lizeth Sifuentes APRN.SCRAP DROP ENGINEER [address] [place] [address] Formerly [facility] 04/04/24 Tiffany Ugarte PA-C [address] [place] [address] Cement [facility]her [facility] 04/04/24 Remington Sung MD [facility] [place] [address] General Surgery 04/16/24 Rolled Glass Crosscutter Relationship Specialty Start Date End Date Gerardo Saleh MD [address] [place] [address] PCP - General Family Medicine 02/10/19 Juan Lopez MD [address] [place] [address] Physician Radiation Oncology 01/30/16 Ibrahima Dhaliwal DO [address] [place] [address] Hematology/Oncology 03/09/24 Lizeth Sifuentes APRN.SCRAP DROP ENGINEER [facility] [place] [address] Cement Crusher Operator Family [facility] 04/04/24 Tiffany Ugarte PA-C [address] [place] [address] Cement Crusher Operator [facility] 04/04/24 Remington Sung MD [facility] [place] [address] General Surgery 04/16/24 Rolled Glass Crosscutter Relationship Specialty Start Date End Date Gerardo Saleh MD [address] [place] [address] PCP - General Family Medicine 02/10/19 Juan Lopez MD [address] [place] [address] Physician Radiation Oncology 01/30/16 Ibrahima Dhaliwal DO [address] [place] [address] Hematology/Oncology 03/09/24 Lizeth Sifuentes APRN.SCRAP DROP ENGINEER [address] [place] [address] [facility] 04/04/24 Tiffany Ugarte PA-C [address] [place] [address] Formerly [facility] 04/04/24 Remington Sung MD [facility] [place] [address] General Surgery 04/16/24 Rolled Glass Crosscutter Relationship Specialty Start Date End Date Gerardo Saleh MD [address] [place] [address] PCP - General Family Medicine 02/10/19 Juan Lopez MD [address] [place] [address] Physician Radiation Oncology 01/30/16 Ibrahima Dhaliwal DO [address] [place] [address] Hematology/Oncology 03/09/24 Lizeth Sifuentes APRN.CNP [address] [place] [address] Formerly [facility] 04/04/24 Tiffany Ugarte PA-C [address] [place] [address] [facility] 04/04/24 Remington Sung MD [facility] [place] [address] General Surgery 04/16/24 Rolled Glass Crosscutter Relationship Specialty Start Date End Date Gerardo Saleh MD [address] [place] [address] PCP - General Family Medicine 02/10/19 Juan Lopez MD [address] [place] [address] Physician Radiation Oncology 01/30/16 Ibrahima Dhaliwal DO [address] [facility] [place] [address] Hematology/Oncology 03/09/24 Lizeth Sifuentes APRN.[facility] [address] [place] [address] Cement Crusher [facility] 04/04/24 Tiffany Ugarte PA-C [address] [place] [address] Cement Crusher [facility] 04/04/24 Remington Sung MD [facility] [place] [address] General Surgery 04/16/24 Rolled Glass Crosscutter Relationship Specialty Start Date End Date Gerardo Saleh MD [facility] [place] [address] PCP - General Family Medicine 02/10/19 Juan Lopez MD [address] [place] [address] Physician Radiation Oncology 01/30/16 Ibrahima Dhaliwal DO [address] [facility] [place] [address] Hematology/Oncology 03/09/24 Lizeth Sifuentes APRN.SCRAP DROP ENGINEER [address] [place] [address] Formerly [facility] 04/04/24 Tiffany Ugarte PA-C [address] [facility] [place] [address] Former[facility] 04/04/24 Remington Sung MD [facility] [address], [place] [address] General Surgery 04/16/24 Rolled Glass Crosscutter Relationship Specialty [place] [address] [place] [address] PCP - General Family Medicine 02/10/19 Juan Lopez MD [address] [place] [address] Physician Radiation Oncology 01/30/16 Ibrahima Dhaliwal DO [address] [place] [address] Hematology/Oncology 03/09/24 Lizeth Sifuentes APRN.SCRAP DROP ENGINEER [facility] [place] [address] Former[facility] 04/04/24 Tiffany Ugarte PA-C [address] [place] [address] [facility] 04/04/24 Remington Sung MD [address] [place] [address] General Surgery 04/16/24 Rolled Glass Crosscutter Relationship Specialty Start Date End Date Gerardo Saleh MD [address] [place] [address] PCP - General Family Medicine 02/10/19 Juan Lopez MD [address] [place] [address] Physician Radiation Oncology 01/30/16 Ibrahima Dhaliwal DO [address] [place] [address] Hematology/Oncology 03/09/24 Lizeth Sifuentes APRN.[facility] [address] [place] [address] Cement Crusher Operator [facility] 04/04/24 Tiffany Ugarte PA-C [address] [place] [address] Former[facility] 04/04/24 Remington Sung MD [facility] [place] [address] General Surgery 04/16/24 Rolled Glass Crosscutter Relationship Specialty Start Date End Date Gerardo Saleh MD [address] [place] [address] PCP - General Family Medicine 02/10/19 Juan Lopez MD [address] [place] [address] Physician Radiation Oncology 01/30/16 Ibrahima Dhaliwal DO [address] [place] [address] Hematology/Oncology 03/09/24 Lizeth Sifuentes APRN.SCRAP DROP ENGINEER [address] [place] [address] Cement Crusher Operator [facility] 04/04/24 Tiffany Ugarte PA-C [address] [place] [address] [facility] 04/04/24 Remington Sung MD [facility] [place] [address] General Surgery 04/16/24 Rolled Glass Crosscutter Relationship Specialty Start Date End Date Gerardo Saleh MD [address] [place] [address] PCP - General Family Medicine 02/10/19 Juan Lopez MD [address] [place] [address] Physician Radiation Oncology 01/30/16 Ibrahima Dhaliwal DO [address] [place] [address] Hematology/Oncology 03/09/24 Lizeth Sifuentes APRN.SCRAP DROP ENGINEER [address] [place] [address] Formerly [facility] 04/04/24 Tiffany Ugarte PA-C [address] [place] [address] Cement Crusher Operator [facility] 04/04/24 Remington Sung MD [address] [place] [address] General Surgery 04/16/24 Rolled Glass Crosscutter Relationship Specialty Start Date End Date Gerardo Saleh MD [address] [place], [place] [phone] PCP - General Family Medicine 02/10/19 Juan Lopez MD [address] [place] [address] Physician Radiation Oncology 01/30/16 Ibrahima Dhaliwal DO [address] [place] [address] Hematology/Oncology 03/09/24 Lizeth Sifuentes APRN.SCRAP DROP ENGINEER [address] [place] [address] Cement Crusher Operator [facility] 04/04/24 Tiffany Ugarte PA-C [address] [place] [address] Cement Crusher Operator [facility] 04/04/24 Remington Sung MD [facility] [place] [address] General Surgery 04/16/24 Rolled Glass Crosscutter Relationship Specialty Start Date End Date Gerardo Saleh MD [address] [place] [address] PCP - General Family Medicine 02/10/19 Juan Lopez MD [address] [place] [address] Physician Radiation Oncology 01/30/16 Ibrahima Dhaliwal DO [address] [place] [address] Hematology/Oncology 03/09/24 Lizeth Sifuentes APRN.SCRAP DROP ENGINEER [address] [place] [address] Cement Crusher Operator [facility] 04/04/24 Tiffany Ugarte PA-C [address] [place] [address] Former[facility] 04/04/24 Remington Sung MD [facility] [place] [address] General Surgery 04/16/24 Rolled Glass Crosscutter Relationship Specialty Start Date End Date Gerardo Saleh MD [address] [place] [address] PCP - General Family Medicine 02/10/19 Juan Lopez MD [address] [place] [address] Physician Radiation Oncology 01/30/16 Ibrahima Dhaliwal DO [address] [place] [address] Hematology/Oncology 03/09/24 Lizeth Sifuentes APRN.SCRAP DROP ENGINEER [address] [place] [address] Formerly [facility] 04/04/24 Tiffany Ugarte PA-C [address] [facility] [place] [address] Cement Crusher [facility] 04/04/24 Remington Sung MD [address] [place] [address] General Surgery 04/16/24 Rolled Glass Crosscutter Relationship Specialty Start Date End Date Gerardo Saleh MD [address] [place] [address] PCP - General Family Medicine 02/10/19 Juan Lopez MD [address] [place] [address] Physician Radiation Oncology 01/30/16 Ibrahima Dhaliwal DO [address] [place] [address] Hematology/Oncology 03/09/24 Lizeth Sifuentes APRN.SCRAP DROP ENGINEER [address] [place] [address] Formerly [facility] 04/04/24 Tiffany Ugarte PA-C [address] [place] [address] Formerly [facility] 04/04/24 Remington Sung MD [address] [place] [address] General Surgery 04/16/24 Rolled Glass Crosscutter Relationship Specialty Start Date End Date Gerardo Saleh MD [facility] [place] [address] PCP - General Family Medicine 02/10/19 Juan Lopez MD [address] [place] [address] Physician Radiation Oncology 01/30/16 Ibrahima Dhaliwal DO [address] [place] [address] Hematology/Oncology 03/09/24 Remington Sung MD [facility] [place] [address] General Surgery 04/16/24 Lizeth Sifuentes APRN.[facility] [address] [place] [address] Cement Crusher Operator Family [facility] 09/28/24 Tiffany Ugarte PA-C [address] [place] [address] Formerly [facility] 09/28/24 Rolled Glass Crosscutter Relationship Specialty Start Date End Date Gerardo Saleh MD [address] [place] [place] [address] PCP - General Family Medicine 02/10/19 Juan Lopez MD [address] [place] [address] Physician Radiation Oncology 01/30/16 Ibrahima Dhaliwal DO [address] [place] [address] Hematology/Oncology 03/09/24 Remington Sung MD [address] [facility] [place] [address] General Surgery 04/16/24 Lizeth Sifuentes APRN.[employer] [address] [place] [address] Formerly [facility] 09/28/24 Tiffany Ugarte PA-C [address] [place] [address] Formerly [facility] 09/28/24 Rolled Glass Crosscutter Relationship Specialty Start Date End Date Gerardo Saleh MD [address] [place] [address] PCP - General Family Medicine 02/10/19 Juan Lopez MD [address] [place] [address] Physician Radiation Oncology 01/30/16 Ibrahima Dhaliwal DO [address] [place] [address] Hematology/Oncology 03/09/24 Remington Sung MD [facility] [place] [address] General Surgery 04/16/24 Lizeth Sifuentes APRN.[employer]INE[employer] [address] [place] [id number] [facility]ly [facility] 09/28/24 Tiffany Ugarte PA-C [address] [place] [address] Formerly [facility] 09/28/24 Goals (unrecognized section and content) Goals may be documented in a n alternate sectionGoals may be documented in an alternate section FOR RECORDS PERTAINING TO PATIENTS WHO ARE [...] BE BASED ON THE PRIMARY CLINICAL RECORDS. [facility]. provides no warranty or guarantee of the accuracy or completeness of information in this document.
--- NOTE | 2024-11-13 07:35 | CT_ITS ---
PROCEDURE: EXTREMITY LOWER WITHOUT CONTRA 11/13/2024 REASON FOR EXAM: UNILATERAL PRIMARY OSTEOARTHRITIS, LEFT KNEE TECHNIQUE: Left EXTREMITY LOWER WITHOUT CONTRA Coronal and Sagittal reconstruction series were provided. One or more dose reduction techniques were used (e.g., Automated exposure control, adjustment of the mA and/or kV according to patient size, use of iterative reconstruction technique. RADIATION DOSE SUMMARY: CTDlvol: 24.1 mGy DLP: 1235 mGycm COMPARISON: None FINDINGS: No displaced fracture or traumatic malalignment. Mild narrowing in the left hip joint. Kswwssja-wj-gnhsci narrowing in the medial compartment of the left knee with subchondral cystic change and tricompartmental osteophyte formation. Small left knee joint effusion. Plantar and Achilles heel spurs. Colonic diverticulosis. Prior hysterectomy. CT/Extremity Lower without Contra IMPRESSION: Oybwauwl-fm-dkaaui osteoarthritis of the left knee, worst in the medial compart ment. Small left knee joint effusion. Reading Location: [facility]
[2024-11-13 08:22] LABS: Hematocrit 44.9 % (37-47); Hemoglobin 14.6 g/dL (12.0-15.0); Immature Granulocytes Count 0.020 X10^3/uL (0.0-0.0); Mean Corp Hgb Conc 32.5 g/dL (32-36); Mean Corpuscular Volume 91.8 fL (81-99); Mean Platelet Vol. 8.7 fl (6.2-12.0); NRBC Flagged by Analyzer 0 % (0-5); Platelet Count 344 K/mm3 (150-450); RBC Distribution Width CV 13.2 % (11.6-14.6); RBC Distribution Width SD 44.9 fl (35.1-43.9); Red Blood Count 4.89 M/mm3 (4.2-5.4); White Blood Count 5.2 K/mm3 (4.4-11.0)
[2024-11-13 09:32] LABS: Albumin, Serum 4.0 g/dL (3.4-4.8); Anion Gap 10 (5-15); BUN 21 mg/dL (4-19); BUN/Creat Ratio 28.8 RATIO (10-20); Calcium,Total 10.2 mg/dL (7.6-11.0); Carbon Dioxide 29.1 mmol/L (21.0-32.0); Chloride 102 mmol/L (98-108); Glucose 94 mg/dL (70-99); Potassium 4.6 mmol/L (3.3-5.1)
== END | disposition home or self-care (01) ==
LOC: CT 07:31
PROVIDERS: PCP Family Medicine; Referring Provider Specialist; Visit Provider Specialist
DX: Z01.818 Encounter for other preprocedural examination (principal); Z01.810 Encounter for preprocedural cardiovascular examination; M17.12 Unilateral primary osteoarthritis, left knee; G89.29 Other chronic pain; M21.162 Varus deformity, not elsewhere classified, left knee
CPT/HCPCS: 36415; 73700; 80048; 82040; 85025; 93005

== ENCOUNTER 2025-04-15 04:01 | Emergency (ER) | payer MEDICARE, OTHER, SELFPAY ==
[2025-04-15 04:02] VITALS: BP 136/79; PULSE 111; RESP 17; TEMP 37.5; O2SAT 95; O2SAT 96; BMI 40.6
--- NOTE | 2025-04-15 04:28 | EKG12_ITS ---
Test Reason : CP Blood Pressure : */* mmHG Vent. Rate : 114 BPM Atrial Rate : 114 BPM P-R Int : 170 ms QRS Dur : 68 ms QT Int : 316 ms P-R-T Axes : 10 -17 18 degrees QTcB Int : 435 ms Sinus tachycardia Otherwise normal ECG Confirmed by Harrison Walker ([id number]), editor trade journal LISY BASS ([id number]) on 04/16/2025 10:30:17 AM Referred By: Confirmed By: Harrison Walker
--- OUTSIDE RECORDS SUMMARY | 2025-04-15 04:50 | XMS RPT_ITS | CCD ---
Author Organization [facility] Care Team Providers Care Auger Operator Name Role Phone John SHINE MD, Juan Unavailable Gerardo Saleh MD Primary Care Provider [phone] Dr. Gerardo Saleh Primary Care Provider Dr. Cassy Walker Attending Provider Dr. Justin Das Referring Provider John SHINE, Juan Unavailable Gerardo Saleh MD Primary Care Provider Gerardo Saleh MD Primary Care Provider [phone] Ibrahima Dhaliwal DO Unavailable AZRA MEEKS Referring Unavailable GERARDO SALEH Primary Care Unavailable Remington Sung MD Unavailable Pcp, Inactive Address Primary Care Provider Unav ailable Mary Beth Chen CGC Unavailable [facility] DYE PENETRANT TESTING TECHNICIAN.HANH, Lizeth Unavailable Tiffany Ugarte PA-C Unavailable BREANEN OCAMPO Referring Unavailable BREANNE OCAMPO Attending Unavailable REMINGTON SUNG Referring Unavailable MARY BETH CHEN Attending Unavailable MARY BETH CHEN Attending Unavailable Remington Sung MD Unavailable [place] DYE PENETRANT TESTING TECHNICIAN.HANH, Lizeth Unavailable Tiffany Ugarte PA-C Unavailable REMINGTON SUNG Attending Unavailab GERARDO Cabrera Primary Care Unavailable REMINGTON SUNG Referring Unavailab GERARDO Cabrera Primary Care Unavailable DELFINO, GERARDO A Primary Care Unavailable SUNGREMINGTON Referring Unavailab le DELFINO, GERARDO A Primary Care Unavailable SUNG, REMINGTON MADERA Referring Unavailab le DELFINO, GERARDO A Primary Care Unavailable DELFINO, GERARDO A Primary Care Unavailable SUNG, REMINGTON MADERA Admitting Unavailab le SUNG, REMINGTON MADERA Attending Unavailab le DELFINO, GERARDO A Primary Care Unavailable SUNG, REMINGTON MADERA Referring Unavailab le DELFINO, GERARDO A Primary Care Unavailable SUNG, REMINGTON MADERA Referring Unavailab le DELFINO, GERARDO A Primary Care Unavailable SUNG, REMINGTON MADERA Attending Unavailab le DELFINO, GERARDO A Primary Care Unavailable SUNG, REMINGTON MADERA Attending Unavailab le DELFINO, GERARDO A Primary Care Unavailable SUNG, REMINGTON MADERA Attending Unavailab le DELFINO, GERARDO A Primary Care Unavailable Delfino SHINE, Dr. Carrillo Primary Care Provider [phone] Thiago SHINE, Dr. Anderson Attending Provider Thiago SHINE, Dr. Anderson Referring Provider [phone] Delfino, Gerardo Primary Care Unavailable Ro Limon Attending Unavailable Justin Das Referring Unavailable Delfino, Gerardo Primary Care Unavailable Justin Das Referring Unavailable Justin Das Attending Unavailable Justin Das Attending Unavailable Delfino, Gerardo Primary Care Unavailable DELFINO, GERARDO A Primary Care Unavailable LIZETH SIFUENTES Attending Unavailable DELFINO, GERARDO A Primary Care Unavailable DELFINO, GERARDO A Primary Care Unavailable JUAN LOPEZ Attending Unavailable DELFINO, GERARDO A Primary Care Unavailable DELFINO, GERARDO A Primary Care Unavailable IBRAHIMA DHALIWAL Attending Unavailable DELFINO, GERARDO A Primary Care Unavailable DELFINO, GERARDO A Primary Care Unavailable DELFINO, GERARDO A Primary Care Unavailable EFFIE VAZ Attending Unavailable DELFINO, GERARDO A Primary Care Unavailable DELFINO, GERARDO A Primary Care Unavailable DELFINO, GERARDO A Primary Care Unavailable DELFINO, GERARDO A Primary Care Unavailable EFFIE VAZ Attending Unavailable DELFINO, GERARDO A Primary Care Unavailable DELFINO, GERARDO A Primary Care Unavailable LIZETH SIFUENTES Referring Unavailable DELFINO, GERARDO A Primary Care Unavailable LIZETH SIFUENTES Attending Unavailable EFFIE VAZ Attending Unavailable DELFINO, GERARDO A Primary Care Unavailable DELFINO, GERARDO A Primary Care Unavailable JUAN LOPEZ Attending Unavailable JUAN LOPEZ Referring Unavailable DELFINO, GERARDO A Primary Care [...] Unavailable DELFINO, GERARDO A Primary Care Unavailable REMINGTON SUNG Referring Unavailab le DELFINO, GERARDO A Primary Care Unavailable REMINGTON SUNG Referring Unavailab le DELFINO, GERARDO A Primary Care Unavailable DELFINO, GERARDO A Primary Care Unavailable DELFINO, GERARDO A Primary Care Unavailable DELFINO, GERARDO A Primary Care Unavailable JUAN LOPEZ Attending Unavailable DELFINO, GERARDO A Primary Care Unavailable DELFINO, GERARDO A Primary Care Unavailable JUAN LOPEZ Attending Unavailable Allergies Allergy Classification Reported Allergen(s) Allergy Type Date of Onset Reaction(s) Facility (20 sources) Penicillin; Translations: [PENICILLIN] Drug Allergy 6 Anaphylaxis [facility] Work Phone: (20 sources) Sulfonamides (Antibiotic); Translations: [SULFA (SULFONAMIDE ANTIBIOTICS)] Drug Allergy 6 Itching [facility] Work Phone: (3 sources) Penicillins Allergy to substance 1 Swelling [facility] (3 sources) Sulfonamides (Antibiotic) Allergy to substance 1 Itching [facility] (1 source) Penicillins Drug allergy (disorder) 1 [facility] (1 source) Sulfonamides (Antibiotic) Drug allergy (disorder) 1 [facility] Medications Current Medications Medication Drug Class(es) [...] tablets by mouth once daily. LD 03/24 Active take 1-2 tablets by mouth [...] on above: Take 1 [facility]. Docusate (20 sources) take 1 [...] by mouth. Take 1 tablet by alfredo once daily. exemestane 25 mg oral tablet (20 sources) Aromatase Inhibitor Start: take 1 tablet by mouth once daily after mealtime exemestane (AROMASIN) 25 mg tablet Take 1 tablet by mouth once daily. TAKE AFTER A MEAL. 90 tablet 3 05/14/2024 Active 12 hr guaiFENesin 600 mg extended release oral tablet (20 sources) take 1 tablet by mouth once daily, then take [id number] 1 tablet by mouth every twelve hours guaiFENesin (MUCINEX) 600 mg 12 hr tablet Take 1,200 mg by mouth once daily. 03/24 Active Comment on above: Take 1,200 mg by alfredo th once daily. Eewbjzwa-Jfaqspv-Pvvb -Lutein tab (20 sources) Multivit-Mineral -Iro n-Lutein tab Take 1 tablet by mouth once daily. LD 03/24 Active take 1 tablet by alfredo th once daily Xzbbhsgr-Bzqlsmd-Dgmo-Lutein tab Take 1 tablet by mouth once daily. Active take 1 tablet by alfredo th once daily Rtfniaiv-Xvpdwnw-Bjje-Lutein tab Take 1 tablet by mouth once [...] on above: Take 2 tablets by mo uth every 6 hours. biotin 1 mg oral [...] NEEDED, Starting on Sat04/01/24 at 0949, Until Sat04/02/24 at 0420, Intraprocedure Start: 02-24-2024 End: 02-24-2024 OTHER, NEEDED, Starting o n 02/24/24 at 1352, Until 02/24/24 at 1352, Intraprocedure Yemeecda-Beoluvc-Japa-Lutein (CENTRUM SILVER ULTRA WOMEN'S) tab (3 sources) take 1 tablet by mouth once daily Fgxnrned-Dddskcx-Bwnz-Lutein (CENTRUM SILVER ULTRA WOMEN'S) tab Take 1 [...] [Mixed incontinence] Onset: 2 05-12-2021 Chronic Osteoarthritis (1 source) Osteoarthritis of left knee joint; Translations: [Unilateral primary osteoarthritis, left knee] 07-15-2023 Chronic Osteoporosis (20 sources) Senile osteoporosis; [...] [Obesity, unspecified] Onset: 1 03-19-2023 Chronic Other nutritional; endocrine; and metabolic disorders (2 sources) History of nutritional deficiency; Translations: [Personal history of other endocrine, nutritional and metabolic disease] 05-14-2024 Episodic Prolapse of female genital organs (20 sources) Midline cystocele; Translations: [Cystocele, midline] Onset: 1 10-28-2020 Chronic Residual codes; unclassified (20 sources) Estrogen receptor positive tumor; Translations: [Estrogen receptor positive status [ER+]] Onset: 4 03-09-2024 Episodic Residual codes; unclassified (1 source) Family history of breast cancer; Translations: [Family history of malignant neoplasm of breast] Onset: 4 03-19-2024 Episodic Residual codes; unclassified (4 sources) Estrogen receptor positive status [ER+]; Translations: [Estrogen receptor positive status (ER+)] Onset: Episodic Superficial injury; contusion (1 source) Foreign body in hand; Translations: [Superficial foreign body of right hand, initial encounter] Episodic Past or Other Problems Problem Classification Problem Date Documented Date Episodic/Chronic Administrative/social admission (20 sources) Advance directive discussed with patient; Translations: [Other specified counseling] Onset: 12-26-2021 Episodic Anal and rectal conditions (20 sources) Incomplete rectal prolapse; Translations: [Rectal prolapse] Onset: 03-14-2021 03-14-2021 Episodic Cancer of breast (20 sources) History of malignant neoplasm of breast; Translations: [Personal history of malignant neoplasm of breast] Onset: 02-24-2024 Episodic Diabetes mellitus without complication (20 sources) Hyperglycemia; Translations: [Hyperglycemia, unspecified] Onset: 09-02-2020 09-02-2020 Episodic Hemorrhoids (20 sources) Hemorrhoids; Translations: [Unspecified hemorrhoids] Onset: 03-14-2021 03-14-2021 Episodic Other aftercare (20 sources) Patient encounter status; Translations: [Other alf (current) drug therapy] Onset: 09-02-2020 09-02-2020 Episodic Other aftercare (1 source) Other alf (current) drug therapy; Translations: [Medication management] Onset: [...] unspecified; Translations: [Disorder of bone, unspecified] Onset: 06-18-2024 Episodic Other diseases of veins and lymphatics (20 sources) Peripheral venous insufficiency; Translations: [Venous insufficiency (chronic) (peripheral)] Onset: 03-09-2019 09-02-2020 Episodic Other nutritional; endocrine; and metabolic disorders (1 source) Personal history of other endocrine, nutritional and metabolic disease; Translations: [History of vitamin D deficiency] Onset: 06-18-2024 Episodic Other screening for suspected conditions (not mental disorders or infectious disease) (13 sources) Ultrasonography of breast abnormal; Translations: [Other abnormal and inconclusive findings on diagnostic imaging of breast] Onset: 02-24-2024 Episodic Residual codes; unclassified (16 sources) Postoperative state; Translations: [Other specified postprocedural states] Onset: 05-12-2021 05-12-2021 Episodic Screening and history of mental health and substance abuse codes (2 sources) Encounter for screening for depression; Translations: [Encounter for screening examination for other mental health and behavioral disorders] Onset: 10-06-2024 Episodic Results Test Name Value Interpretation Reference Range Facility [facility]OVSPon 02-18-2025 [facility] Visit (SP) Office ([facility]) [facility] ([id number]) 1950 F TXT Date Time Provider Department 02/18/25 9:00 AM EFFIE VAZ During your visit today, we recorded the following information about you: Temperature Pulse Blood pressure Weight 97.7 degrees 93/minute 119/82 86.7 kg Effie Vaz APRN.HYDRO TECHNICIAN 02/18/2025 9:31 AM Signed Chief Complaint Patient presents with: [...] nuclear grade 2. ER >90%, strong and NH 60%, weak to moderate. HER2 quantified at [...] biopsy for new right sided lobular carcinoma. NGS/biomarkers/oil transport driver mutation analyses: Ambry genetic testing negative. RADIATION:05/25/24 - 06/12/24 Right breast Current therapy:Aromasin Began after radiation. No new concerns today. L tkr-Dr. Das. No complications. Appetite:Too good. Stable. Energy level:Good. Denies fevers or recent illness. Resp:denies cough or sob, occ. panchal with steps Cardiac:denies chest pain/palpitations GI:denies abd pain, n/v, moving bowels regularly :denies dysuria/hematuria Extrem:S/p L tkr 12/10/24-Dr. Das, denies new pain Endo:+hot flashes Maybe one per day. Probably more at night. Neuro:denies symptoms of neuropathy Skin:denies rashes/lesions Heme:denies bleeding The ROS is otherwise negative. Past medical history, appointments, medications, allergies reviewed. No changes. EXAM: BP 119/82 Pulse 93 Temp 36.5 ?C (97.7 ?F) (Temporal) Wt 86.7 kg (191 lb 2.2 oz) LMP 01/27/2003 SpO2 97% BMI 34.73 kg/m? APPEARANCE Well appearing, alert, in no acute distress, well-hydrated, well nourished. HEART RRR with normal S1 and S2, no murmurs LUNG clear to auscultation BREAST FEMALE no mass/nodule b/l LYMPH NODES No cervical [...] previous note: Assessment: -New pT1c(m) pNX M0 ER/NH positive, HER2 negative invasive lobular carcinoma of the right breast. -History of a pT1 (1.9 cm; grade 2; LVI+) pN1a MX ER/NH positive HER2 negative stage IIA invasive ductal [...] - Continue aromasin. - Mammogram ordered per surgeon. - Follow up with surgeon as scheduled. - After next visit plan to alt. every 6 months with surgeon. - Follow up in September 2025. - Pt. aware to call office with any questions/concerns. The patient indicates understanding of these issues and agrees with the plan. All documentation from previous visit of 10/21/24-Dr. Dhaliwal/myself was copied and pasted, documentation has been reviewed and edited as necessary for today's visit. Effie Vaz, DOMINGO.HYDRO TECHNICIAN Allergies As of Date: 02/18/2025 Noted Allergy Reaction PENICILLIN 09 (more content not included)... Normal [facility] DBT Breast - bilateral diagn ostic for implanton 01-05-2025 IMPRESSION: There is no mammographic or sonographic evidence of malignancy. Benign postoperative changes in each breast. No mammographic or sonographic abnormality to correspond with the area of palpable concern in the left breast. Further management should be based on clinical assessment. Return to annual screening mammogram is recommended. Annual mammogram will be due in 1 year. BI-RADS Category 2: Benign RISK: Due to the reported patient's history, the patient's estimated lifetime risk of developing breast cancer cannot be assessed at this time. We encourage all patients to talk with their providers about their risk assessment, further recommendations for managing breast health, and appropriate supplemental screening options if the patient has dense breast tissue. Interpreting Radiologist: Kike Saldana M.D. Electronically signed on: 01/05/2025 Brim Pouncer: DARIAN Transcribe Date/Time: Jan 05 2025 8:50A Dictated by: KIKE SALDANA MD This examination was interpreted and the report reviewed and electronically signed by: KIKE SALDANA MD on Jan 05 2025 10:35AM [facility] DIVISION OF RADIOLOGY * * *Final Report* * * DATE OF EXAM: Jan 05 2025 9:05AM [facility] 0627 - [facility] RADHA SANCHEZ / PROCEDURE REASON: multiple diagnoses * * * * Physician Interpretation * * * * RESULT: [facility] [address] [place] [address] #[id number] - MAVERICK SANCHEZ #[id number] - [facility] [employer] BREAST LTD LT HISTORY: 74 year-old patient presents for diagnostic evaluation of personal breast cancer history in both breasts. The patient has the following personal history of breast cancer: breast cancer in the left breast in 2016 and invasive lobular carcinoma in the right breast in January,. The patient has a family history of breast cancer. COMPARISON STUDIES: The present examination has been compared to prior imaging studies dated 01/29/2024 (ultrasound), 01/29/2024 (mammogram), 02/24/2024 (mammogram), 03/17/2024 (ultrasound) and 04/01/2024 (mammogram). MAMMOGRAM TECHNIQUE: The study was acquired using full field digital technology and interpreted from soft copy. Digital Breast Tomosynthesis (DBT) images were obtained and used to assist in the interpretation of this examination. MAMMOGRAM FINDINGS: The breasts are heterogeneously dense, which may obscure small masses. There is a biopsy clip in the left breast. Interval postoperative and postradiation changes in the right breast. Postoperative changes left breast. No suspicious masses, calcifications or other abnormalities are seen in either breast. ULTRASOUND TECHNIQUE: Targeted ultrasound of the indicated area was performed. Manzanares scale images were saved. ULTRASOUND FINDINGS: There are no suspicious findings in the imaged area. No sonographic abnormality corresponding the area of palpable concern in the left breast. DIVISION OF RADIOLOGY Provider, [facility] - 01/05/2025 * * *Final Report* * * DATE OF EXAM: Jan 05 2025 9:05AM [facility] 0627 - [facility] RADHA MCCORMICKO DAVID / PROCEDURE REASON: multiple diagnoses * * * * Physician Interpretation * * * * RESULT: [place] [address] #[id number] - [facility] RADHA MCCORMICKO DAVID #[id number] - [facility] US BREAST LTD LT HISTORY: 74 year-old patient presents for diagnostic evaluation of personal breast cancer history in both breasts. The patient has the following personal history of breast cancer: breast cancer in the left breast in 2016 and invasive lobular carcinoma in the right breast in January,. The patient has a family history of breast cancer. COMPARISON STUDIES: The present examination has been compared to prior imaging studies dated 01/29/2024 (ultrasound), 01/29/2024 (mammogram), 02/24/2024 (mammogram), 03/17/2024 (ultrasound) and 04/01/2024 (mammogram). MAMMOGRAM TECHNIQUE: The study was acquired using full field digital technology and interpreted from soft copy. Digital Breast Tomosynthesis (DBT) images were obtained and used to assist in the interpretation of this examination. MAMMOGRAM FINDINGS: The breasts are heterogeneously dense, which may obscure small masses. There is a biopsy clip in the left breast. Interval postoperative and postradiation changes in the right breast. Postoperative changes left breast. No suspicious masses, calcifications or other abnormalities are seen in either breast. ULTRASOUND TECHNIQUE: Targeted ultrasound of the indicated area was performed. Manzanares scale images were saved. ULTRASOUND FINDINGS: There are no suspicious findings in the imaged area. No sonographic abnormality corresponding the area of palpable concern in the left breast. IMPRESSION IMPRESSION: There is no mammographic or sonographic evidence of malignancy. Benign postoperative changes in each breast. No mammographic or sonographic abnormality to correspond with the area of palpable concern in the left breast. Further management should be based on clinical assessment. Return to annual screening mammogram is recommended. Annual mammogram will be due in 1 year. BI-RADS Category 2: Benign RISK: Due to the reported patient's history, the patient's estimated lifetime risk of developing breast cancer cannot be assessed at this time. We encourage all patients to talk with their providers about their risk assessment, further recommendations for managing breast health, and appropriate supplemental screening options if the patient has dense breast tissue. Interpreting Radiologist: Kike Saldana M.D. Electronically signed on: 01/05/2025 Brim Pouncer: DARIAN Transcribe Date/Time: Jan 05 2025 8:50A Dictated by: KIKE SALDANA MD This examination was interpreted and the report reviewed and electronically signed by: KIKE SALDANA MD on Jan 05 2025 10:35AM [facility] MAVERICK GARCIA W LOIDA BILarnulfo 2024 [facility] DIAG W LOIDA DAVID * * *Final Report* * * DATE OF EXAM: Jan 05 2025 9:05AM [facility] 0627 - [facility] DELG W LOIDA DAVID / PROCEDURE REASON: multiple diagnoses * * * * Physician Interpretation * * * * RESULT: [place] [address] [place] [address] #[id number] - [facility] RADHA SANCHEZ #[id number] - [facility] US BREAST LTD HISTORY: 74 year-old patient presents for diagnostic evaluation of personal breast cancer history in both breasts. The patient has the following personal history of breast cancer: breast cancer in the left breast in 2016 and invasive lobular carcinoma in the right breast in January,. The patient has a family history of breast cancer. COMPARISON STUDIES: The present examination has been compared to prior imaging studies dated 01/29/2024 (ultrasound), 01/29/2024 (mammogram), 02/24/2024 (mammogram), 03/17/2024 (ultrasound) and 04/01/2024 (mammogram). MAMMOGRAM TECHNIQUE: The study was acquired using full field digital technology and interpreted from soft copy. Digital Breast Tomosynthesis (DBT) images were obtained and used to assist in the interpretation of this examination. MAMMOGRAM FINDINGS: The breasts are heterogeneously dense, which may obscure small masses. There is a biopsy clip in the left breast. Interval postoperative and postradiation changes in the right breast. Postoperative changes left breast. No suspicious masses, calcifications or other abnormalities are seen in either breast. ULTRASOUND TECHNIQUE: Targeted ultrasound of the indicated area was performed. Manzanares scale images were saved. ULTRASOUND FINDINGS: There are no suspicious findings in the imaged area. No sonographic abnormality corresponding the area of palpable concern in the left breast. IMPRESSION: There is no mammographic or sonographic evidence of malignancy. Benign postoperative changes in each breast. No mammographic or sonographic abnormality to correspond with the area of palpable concern in the left breast. Further management should be based on clinical assessment. Return to annual screening mammogram is recommended. Annual mammogram will be due in 1 year. BI-RADS Category 2: Benign RISK: Due to the reported patient's history, the patient's estimated lifetime risk of developing breast cancer cannot be assessed at this time. We encourage all patients to talk with their providers about their risk assessment, further recommendations for managing breast health, and appropriate supplemental screening options if the patient has dense breast tissue. Interpreting Radiologist: Kike Saldana M.D. Electronically signed on: 01/05/2025 Brim Pouncer: DARIAN Transcribe Date/Time: Jan 05 2025 8:50A Dictated by: KIKE SALDANA MD This examination was interpreted and the report reviewed and electronically signed by: KIKE SALDANA MD on Jan 05 2025 10:35AM EST [id number] [facility] US BREAST LTD LTon 01-05 [facility] US BREAST LTD LT * * *Final Report* * * DATE OF EXAM: Jan 05 2025 9:56AM [id number] - [facility] US BREAST LTD LT / PROCEDURE REASON: multiple diagnoses * * * * Physician Interpretation * * * * [place] [address] #[id number] - [facility] RADHA MARISCAL DAVID #[id number] - [facility] US BREAST LTD LT HISTORY: 74 year-old patient presents for diagnostic evaluation of personal breast cancer history in both breasts. The patient has the following personal history of breast cancer: breast cancer in the left breast in 2015 and invasive lobular carcinoma in the right breast in January,. The patient has a family history of breast cancer. COMPARISON STUDIES: The present examination has been compared to prior imaging studies dated 01/29/2024 (ultrasound), 01/29/2024 (mammogram), 02/24/2024 (mammogram), 03/17/2024 (ultrasound) and 04/01/2024 (mammogram). MAMMOGRAM TECHNIQUE: The study was acquired using full field digital technology and interpreted from soft copy. Digital Breast Tomosynthesis (DBT) images were obtained and used to assist in the interpretation of this examination. MAMMOGRAM FINDINGS: The breasts are heterogeneously dense, which may obscure small masses. There is a biopsy clip in the left breast. Interval postoperative and postradiation changes in the right breast. Postoperative changes left breast. No suspicious masses, calcifications or other abnormalities are seen in either breast. ULTRASOUND TECHNIQUE: Targeted ultrasound of the indicated area was performed. Manzanares scale images were saved. ULTRASOUND FINDINGS: There are no suspicious findings in the imaged area. No sonographic abnormality corresponding the area of palpable concern in the left breast. IMPRESSION: There is no mammographic or sonographic evidence of malignancy. Benign postoperative changes in each breast. No mammographic or sonographic abnormality to correspond with the area of palpable concern in the left breast. Further management should be based on clinical assessment. Return to annual screening mammogram is recommended. Annual mammogram will be due in 1 year. BI-RADS Category 2: Benign RISK: Due to the reported patient's history, the patient's estimated lifetime risk of developing breast cancer cannot be assessed at this time. We encourage all patients to talk with their providers about their risk assessment, further recommendations for managing breast health, and appropriate supplemental screening options if the patient has dense breast tissue. Interpreting Radiologist: Kike Saldana M.D. Electronically signed on: 01/05/2025 Brim Pouncer: DARIAN Transcribe Date/Time: Jan 05 2025 9:47A Dictated by : KIKE SALDANA MD This examination was interpreted and the report reviewed and electronically signed by: KIKE SALDANA MD on Jan 05 2025 10:35AM EST [id number] Normal [facility] No Panel InformationOrdered By: [facility] Provider on 01-05-2025 [facility] No Panel Informationon 01-05 Radiology Study observation (narrative) [facility] US Breast - left limitedon 0 01-05-2025 IMPRESSION: There is no mammographic or sonographic evidence of malignancy. Benign postoperative changes in each breast. No mammographic or sonographic abnormality to correspond with the area of palpable concern in the left breast. Further management should be based on clinical assessment. Return to annual screening mammogram is recommended. Annual mammogram will be due in 1 year. BI-RADS Category 2: Benign RISK: Due to the reported patient's history, the patient's estimated lifetime risk of developing breast cancer cannot be assessed at this time. We encourage all patients to talk with their providers about their risk assessment, further recommendations for managing breast health, and appropriate supplemental screening options if the patient has dense breast tissue. Interpreting Radiologist: Kike Saldana M.D. Electronically signed on: 01/05/2025 Brim Pouncer: DARIAN Transcribe Date/Time: Jan 05 2025 9:47A Dictated by : KIKE SALDANA MD This examination was interpreted and the report reviewed and electronically signed by: KIKE SALDANA MD on Jan 05 2025 10:35AM EST DIVISION OF RADIOLOGY * * *Final Report* * * DATE OF EXAM: Jan 05 2025 9:56AM U 0593 - [facility] [employer] BREAST LTD LT / PROCEDURE REASON: multiple diagnoses * * * * Physician Interpretation * * * * [address] [address] #[id number] - DCY RADHA SANCHEZ #[id number] - [facility] [employer] BREAST LTD LT HISTORY: 74 year-old patient presents for diagnostic evaluation of personal breast cancer history in both breasts. The patient has the following personal history of breast cancer: breast cancer in the left breast in 2016 and invasive lobular carcinoma in the right breast in January,. The patient has a family history of breast cancer. COMPARISON STUDIES: The present examination has been compared to prior imaging studies dated 01/29/2024 (ultrasound), 01/29/2024 (mammogram), 02/24/2024 (mammogram), 03/17/2024 (ultrasound) and 04/01/2024 (mammogram). MAMMOGRAM TECHNIQUE: The study was acquired using full field digital technology and interpreted from soft copy. Digital Breast Tomosynthesis (DBT) images were obtained and used to assist in the interpretation of this examination. MAMMOGRAM FINDINGS: The breasts are heterogeneously dense, which may obscure small masses. There is a biopsy clip in the left breast. Interval postoperative and postradiation changes in the right breast. Postoperative changes left breast. No suspicious masses, calcifications or other abnormalities are seen in either breast. ULTRASOUND TECHNIQUE: Targeted ultrasound of the indicated area was performed. Manzanares scale images were saved. ULTRASOUND FINDINGS: There are no suspicious findings in the imaged area. No sonographic abnormality corresponding the area of palpable concern in the left breast. DIVISION OF RADIOLOGY Provider, [facility] - 01/05/2025 * * *Final Report* * * DATE OF EXAM: Jan 05 2025 9:56AM U 0593 - [facility] [employer] BREAST LTD LT / PROCEDURE REASON: multiple diagnoses * * * * Physician Interpretation * * * * [address] [address] #[id number] - [facility] ARDHA SANCHEZ #[id number] - [facility] BREAST LTD LT HISTORY: 74 year-old patient presents for diagnostic evaluation of personal breast cancer history in both breasts. The patient has the following personal history of breast cancer: breast cancer in the left breast in 2016 and invasive lobular carcinoma in the right breast in January,. The patient has a family history of breast cancer. COMPARISON STUDIES: The present examination has been compared to prior imaging studies dated 01/29/2024 (ultrasound), 01/29/2024 (mammogram), 02/24/2024 (mammogram), 03/17/2024 (ultrasound) and 04/01/2024 (mammogram). MAMMOGRAM TECHNIQUE: The study was acquired using full field digital technology and interpreted from soft copy. Digital Breast Tomosynthesis (DBT) images were obtained and used to assist in the interpretation of this examination. MAMMOGRAM FINDINGS: The breasts are heterogeneously dense, which may obscure small masses. There is a biopsy clip in the left breast. Interval postoperative and postradiation changes in the right breast. Postoperative changes left breast. No suspicious masses, calcifications or other abnormalities are seen in either breast. ULTRASOUND TECHNIQUE: Targeted ultrasound of the indicated area was performed. Manzanares scale images were saved. ULTRASOUND FINDINGS: There are no suspicious findings in the imaged area. No sonographic abnormality corresponding the area of palpable concern in the left breast. IMPRESSION IMPRESSION: There is no mammographic or sonographic evidence of malignancy. Benign postoperative changes in each breast. No mammographic or sonographic abnormality to correspond with the area of palpable concern in the left breast. Further management should be based on clinical assessment. Return to annual screening mammogram is recommended. Annual mammogram will be due in 1 year. BI-RADS Category 2: Benign RISK: Due to the reported patient's history, the patient's estimated lifetime risk of developing breast cancer cannot be assessed at this time. We encourage all patients to talk with their providers about their risk assessment, further recommendations for managing breast health, and appropriate supplemental screening options if the patient has dense breast tissue. Interpreting Radiologist: Kike Saldana M.D. Electronically signed on: 01/05/2025 Brim Pouncer: DARIAN Transcribe Date/Time: Jan 05 2025 9:47A Dictated by : KIKE SALDANA MD This examination was interpreted and the report reviewed and electronically signed by: KIKE SALDANA MD on Jan 05 2025 10:35AM EST [facility] CNOVon 11-24-2024 CNOV Office Visit (FAMPWS ) LOVE PINO ([id number]) 1950 F TXT Date Time Provider Department 11/24/24 9:00 AM LIZETH SIFUENTES During your visit today, we recorded the following information about you: Pulse Blood pressure Weight 93/minute 129/76 88 kg Lizeth Sifuentes APRN.HYDRO TECHNICIAN 11/24/2024 9:23 AM Signed Chief Complaint Patient presents with: Pre-Op Exam: Left knee replacement HPI Yanelijayson Pino is a 74 year old female who presents here today for Above Complaints.. Patient presents for pre op exam. Past medical history, appointments, medications, allergies reviewed. [...] capsule by mouth once daily. LD 03/24 Ptrpqdqs-Cpztjxc-Qika-L utein tab Take 1 tablet by mouth once daily. LD 03/24 No current facility-administered medications on file prior to visit. Social History Social History Tobacco Use Smoking status: Never Smokeless tobacco: Never Vaping Use Vaping status: Never Used Substance Use Topics Alcohol use: Yes Comment: wine Drug use: Never Review of Symptoms REVIEW OF SYSTEMS SEE HPI EXAM: BP 129/76 Pulse 93 Wt 88 kg (194 lb 0.1 oz) LMP 01/27/2003 BMI 35.25 kg/m? General Appearance: Well appearing, alert, in no acute distress, well-hydrated, well nourished.. Lungs: Lungs clear to auscultation. No wheezing, rhonchi, rales.. Heart: RRR without murmur, gallop, or rubs. No ectopy. Peripheral Pulses: Normal. Health Maintenance List RSV Vaccine(1 - Risk 60-74 years 1-dose series) Never done Shingrix Vaccine(2 of 3) due on 05/13/2015 Mammogram Screening due on 01/02/2025 Influenza Vaccine(1) due on 12/28/2024 Depression Screening due on 10/06/2025 Anxiety Screening due on 10/06/2025 Medicare Annual Wellness Visit due on 10/06/2025 Bone Density Screening due on 06/18/2026 DTaP,Tdap,Td Vaccine(2 - Td or Tdap) due on (more content not included)... Normal [facility] Absolute lymphocyte countOrd ered By: Justin Das on 11-13-2024 Lymphocytes Auto (Unsp spec) [#/Vol] 1.56 10*3/uL 0.83-4.51 [facility] Absolute neutrophil countOrd ered By: Justin Das on 11-13-2024 Neutrophils (Bld) [#/Vol] 2.7 10*3/uL 2.0-7.7 [facility] Albumin, Serumon 11-13-2024 Albumin [Mass/Vol] 4.0 g/dL Normal 3.4-4.8 [facility] Comment on above: Performed By: #### L 100.0100, L501.1800, L500.2500 #### [facility] [address] [place], [address] Anion gap in Serum or Plasma Ordered By: Justin Das on 11-13-2024 Anion gap [Moles/Vol] 10 mmol/L 5-15 [facility] Automated lymphocyte count a s percentage of total leukocytesOrdered By: Justin Das on 11-13-2024 Lymphocytes/100 WBC Auto (Unsp spec) 29.9 % 19-41 [facility] BUN/creatinine ratioOrdered By: Justin Das on 11-13-2024 Urea nitrogen/Creatinine [Mass ratio] 28.8 mg/mg High 10-20 [facility] Basic Metabolic Profile (BMP )on 11-13-2024 BUN/CRE 28.8 RATIO High 10-20 [facility] Comment on above: Performed By: #### L 100.0100, L501.1800, L500.2500 #### [facility] [address] [place], [address] Calcium [Mass/Vol] 10.2 mg/dL Normal 7.6-11.0 [facility] Comment on above: Performed By: #### L 100.0100, L501.1800, L500.2500 #### [facility] [address] [place], [address] Chloride [Moles/Vol] 102 mmol/L Normal 98-108 [facility] Comment on above: Performed By: #### L 100.0100, L501.1800, L500.2500 #### [facility] [address] [place], [address] CO2 [Moles/Vol] 29.1 mmol/L Normal 21.0-32.0 [facility] Comment on above: Performed By: #### L 100.0100, L501.1800, L500.2500 #### [facility] [address] [place], [address] Creatinine [Mass/Vol] 0.72 mg/dL Normal 0.70-1.20 [facility] Comment on above: Performed By: #### L 100.0100, L501.1800, L500.2500 #### [facility] [address] [place], [address] GAP 10 Normal 5-15 [facility] Comment on above: Performed By: #### L 100.0100, L501.1800, L500.2500 #### [facility] [address] [place], [address] GFR/1.73 sq M.predicted among non-blacks MDRD (S/P/Bld) [Vol rate/Area] 89 mL/min/{1.73_m2} Normal >60 [facility] Comment on above: Result Comment: mL/m in/1.73m2 CKD-EPI Creatinine Equation (2020) Performed By: #### L 100.0100, L501.1800, L500.2500 #### [facility] [address] [place], [address] Glucose [Mass/Vol] 94 mg/dL Normal 70-99 [facility] Comment on above: Performed By: #### L 100.0100, L501.1800, L500.2500 #### [facility] [address] [place], [address] Potassium [Moles/Vol] 4.6 mmol/L Normal 3.3-5.1 [facility] Comment on above: Performed By: #### L 100.0100, L501.1800, L500.2500 #### [facility] [address] [place], [address] Sodium [Moles/Vol] 141 mmol/L Normal 133-145 [facility] Comment on above: Performed By: #### L 100.0100, L501.1800, L500.2500 #### [facility] [address] [place], [address] Urea nitrogen [Mass/Vol] 21 mg/dL High 4-19 [facility] Comment on above: Performed By: #### L 100.0100, L501.1800, L500.2500 #### [facility] [address] [place], [address] Basophil percentageOrdered B y: Justin Das on 11-13-2024 Basophils/100 WBC (Bld) 1.1 % High 0-1 [facility] CBC W/Diff, Automatedon - Absolute Lymph 1.56 X10 3/uL Normal 0.83-4.51 [facility] Comment on above: Performed By: #### L 100.0100, L501.1800, L500.2500 #### [facility] [address] [place], [address] Absolute Neut 2.7 X10 3/uL Normal 2.0-7.7 [facility] Comment on above: Performed By: #### L 100.0100, L501.1800, L500.2500 #### [facility] [address] [place], [address] Basophils/100 WBC (Bld) 1.1 % High 0-1 [facility] Comment on above: Performed By: #### L 100.0100, L501.1800, L500.2500 #### [facility] [address] [place], [address] Eosinophils/100 WBC (Bld) 4.2 % Normal 0-5 [facility] Comment on above: Performed By: #### L 100.0100, L501.1800, L500.2500 #### [facility] [address] [place], [address] Erythrocyte distribution width (RBC) [Ratio] 13.2 % Normal 11.6-14.6 [facility] Comment on above: Performed By: #### L 100.0100, L501.1800, L500.2500 #### [facility] [address] [place], [address] Hematocrit (Bld) [Volume fraction] 44.9 % Normal 37-47 [facility] Comment on above: Performed By: #### L 100.0100, L501.1800, L500.2500 #### [facility] [address] [place], [address] Hemoglobin (Bld) [Mass/Vol] 14.6 g/dL Normal 12.0-15.0 [facility] Comment on above: Performed By: #### L 100.0100, L501.1800, L500.2500 #### [facility] [address] [place], [address] IG% 0.400 Normal 0.0-0.9 [facility] Comment on above: Result Comment: IG% - Immature Granulocytes (promyelocytes, myelocytes and metamyelocytes) > 1% indicates that a LEFT SHIFT is Present. Performed By: #### L 100.0100, L501.1800, L500.2500 #### [facility] [address] [place], [address] Lymphocytes/100 WBC (Bld) 29.9 % Normal 19-41 [facility] Comment on above: Performed By: #### L 100.0100, L501.1800, L500.2500 #### [facility] [address] [place], [address] MCH (RBC) [Entitic mass] 29.9 pg Normal 27.0-32.0 [facility] Comment on above: Performed By: #### L 100.0100, L501.1800, L500.2500 #### [facility] [address] [place], [address] MCHC (RBC) [Mass/Vol] 32.5 g/dL Normal 32-36 [facility] Comment on above: Performed By: #### L 100.0100, L501.1800, L500.2500 #### [facility] [address] [place], [address] MCV (RBC) [Entitic vol] 91.8 fL Normal 81-99 [facility] Comment on above: Performed By: #### L 100.0100, L501.1800, L500.2500 #### [facility] [address] [place], [address] Monocytes/100 WBC (Bld) 12.6 % High 0-10 [facility] Comment on above: Performed By: #### L 100.0100, L501.1800, L500.2500 #### [facility] [address] [place], [address] Neutrophils/100 WBC (Bld) 51.8 % Normal 47-70 [facility] Comment on above: Performed By: #### L 100.0100, L501.1800, L500.2500 #### [facility] [address] [place], [address] Nucleated RBC (Bld) [#/Vol] 0 10*3/uL Normal 0-5 [facility] Comment on above: Performed By: #### L 100.0100, L501.1800, L500.2500 #### [facility] [address] [place], [address] Platelet mean volume (Bld) [Entitic vol] 8.7 fL Normal 6.2-12.0 [facility] Comment on above: Performed By: #### L 100.0100, L501.1800, L500.2500 #### [facility] [address] [place], [address] Platelets (Bld) [#/Vol] 344 10*3/uL Normal 150-450 [facility] Comment on above: Performed By: #### L 100.0100, L501.1800, L500.2500 #### [facility] [address] [place], [address] RBC (Bld) [#/Vol] 4.89 10*6/uL Normal 4.2-5.4 [facility] Comment on above: Performed By: #### L 100.0100, L501.1800, L500.2500 #### [facility] [address] [place], [address] RDW SD 44.9 fl High 35.1-43.9 [facility] Comment on above: Performed By: #### L 100.0100, L501.1800, L500.2500 #### [facility] [address] [place], [address] WBC (Bld) [#/Vol] 5.2 10*3/uL Normal 4.4-11.0 [facility] Comment on above: Performed By: #### L 100.0100, L501.1800, L500.2500 #### [facility] [address] [place], [address] Carbon dioxide, total [Moles /volume] in Central venous bloodOrdered By: Justin Das on 11-13-2024 CO2 [Moles/Vol] 29.1 mmol/L 21.0-32.0 [facility] Chloride assayOrdered By: St tiburcio Das on 11-13-2024 Chloride [Moles/Vol] 102 mmol/L 98-108 [facility] Eosinophil percentageOrdered By: Justin Das on 11-13-2024 Eosinophils/100 WBC (Bld) 4.2 % 0-5 [facility] Erythrocyte distribution wid th ratioOrdered By: Justin Das on 11-13-2024 Erythrocyte distribution width (RBC) [Ratio] 13.2 % 11.6-14.6 [facility] Erythrocyte distribution wid th standard deviationOrdered By: Justin Das on 11-13-2024 Erythrocyte distribution width (RBC) [Ratio] 44.9 fl High 35.1-43.9 [facility] Extremity Lower without Cont raon 11-13-2024 Extremity Lower without Contra [facility] Imaging Services [address] [place] [address] Extremity Lower without Contra MR#: [id number] Acct: [id number] Name: LOVE PINO Rep #: [id number] : 1950 F 74 From: Raudel Bella MD PCP: Dr. Gerardo Saleh MD Status: REG CLI Study: Extremity Lower without Contra Date of Exam: 0 11/13/24 Exam# [id number] Ordering Dr: Justin Das MD PROCEDURE: EXTREMITY LOWER WITHOUT CONTRA 11/13/2024 REASON FOR EXAM: UNILATERAL PRIMARY OSTEOARTHRITIS, LEFT KNEE TECHNIQUE: Left EXTREMITY LOWER WITHOUT CONTRA Coronal and Sagittal reconstruction series were provided. One or more dose reduction techniques were used (e.g., Automated exposure control, adjustment of the mA and/or kV according to patient size, use of iterative reconstruction technique. RADIATION DOSE SUMMARY: CTDlvol: 24.1 mGy DLP: 1235 mGycm COMPARISON: None FINDINGS: No displaced fracture or traumatic malalignment. Mild narrowing in the left hip joint. Xjywdjph-ue-xqejxp narrowing in the medial compartment of the left knee with subchondral cystic change and tricompartmental osteophyte formation. Small left knee joint effusion. Plantar and Achilles heel spurs. Colonic diverticulosis. Prior hysterectomy. CT/Extremity Lower without Contra IMPRESSION: Ttkhkoqe-qr-vovgec osteoarthritis of the left knee, worst in the medial compartment. Small left knee joint effusion. Reading Location: [facility] CC: Dr. Gerardo Saleh MD; Dr. Justin Das MD Brim Pouncer: Signed Normal [facility] Glomerular filtration rate ( GFR) estimation/1.73 sq m using serum, plasma, or whole bOrdered By: Justin Das on 11-13-2024 GFR/1.73 sq M.predicted among non-blacks MDRD (S/P/Bld) [Vol rate/Area] 89 mL/min/{1.73_m2} >60 [facility] Comment on above: mL/min/1.73m2 CKD-EP I Creatinine Equation (2020) Hematocrit Auto (Bld) [Volum e fraction]Ordered By: Justin Das on 11-13-2024 Hematocrit (Bld) [Volume fraction] 44.9 % 37-47 [facility] Hemoglobin measurementOrdere d By: Justin Das on 11-13-2024 Hemoglobin (Bld) [Mass/Vol] 14.6 g/dL 12.0-15.0 [facility] Immature granulocytes/100 WB C Auto (Bld)Ordered By: Justin Das on 11-13-2024 Immature granulocytes/100 WBC (Bld) 0.400 % 0.0-0.9 [facility] Comment on above: IG% - Immature Granu locytes (promyelocytes, myelocytes and metamyelocytes) > 1% indicates that a LEFT SHIFT is Present. MCV (mean corpuscular volume ) determinationOrdered By: Justin Das on 11-13-2024 MCV (RBC) [Entitic vol] 91.8 fL 81-99 [facility] Mean corpuscular hemoglobin (MCH) determinationOrdered By: Justin Das on 11-13-2024 MCH (RBC) [Entitic mass] 29.9 pg 27.0-32.0 [facility] Mean corpuscular hemoglobin concentration (MCHC) determinationOrdered By: Justin Das on 11-13-2024 MCHC (RBC) [Mass/Vol] 32.5 g/dL 32-36 [facility] Mean platelet volume determi nationOrdered By: Justin Das on 11-13-2024 Platelet mean volume (Bld) [Entitic vol] 8.7 fL 6.2-12.0 [facility] Monocyte percentageOrdered B y: Justin Das on 11-13-2024 Monocytes/100 WBC (Bld) 12.6 % High 0-10 [facility] Neutrophil percentageOrdered By: Justin Das on 11-13-2024 Neutrophils/100 WBC (Bld) 51.8 % 47-70 [facility] Nucleated red blood cell per centageOrdered By: Justin Das on 11-13-2024 Nucleated RBC/100 WBC (Bld) [Ratio] 0 % 0-5 [facility] Platelet countOrdered By: St tiburcio Das on 11-13-2024 Platelets (Bld) [#/Vol] 344 10*3/uL 150-450 [facility] Potassium measurement (mass/ volume)Ordered By: Justin Das on 11-13-2024 Potassium (Unsp spec) [Mass/Vol] 4.6 mmol/L 3.3-5.1 [facility] RBC Auto (Bld) [#/Vol]Ordere d By: Justin Das on 11-13-2024 RBC (Bld) [#/Vol] 4.89 10*6/uL 4.2-5.4 [facility] Serum creatinine measurement (mass/volume)Ordered By: Justin Das on 11-13-2024 Creatinine [Mass/Vol] 0.72 mg/dL 0.70-1.20 [facility] Serum glucose measurement (m ass/volume)Ordered By: Justin Das on 11-13-2024 Glucose [Mass/Vol] 94 mg/dL 70-99 [facility] Serum or plasma albumin jeffery urement (mass/volume)Ordered By: Justin Das on 11-13-2024 Albumin [Mass/Vol] 4.0 g/dL 3.4-4.8 [facility] Serum or plasma calcium jeffery urement (mass/volume)Ordered By: Justin Dsa on 11-13-2024 Calcium [Mass/Vol] 10.2 mg/dL 7.6-11.0 [facility] Serum or plasma urea nitroge n measurement (mass/volume)Ordered By: Justin Das on 11-13-2024 Urea nitrogen [Mass/Vol] 21 mg/dL High 4-19 [facility] Sodium levelOrdered By: Rell Das on 11-13-2024 Sodium [Moles/Vol] 141 mmol/L 133-145 [facility] White blood cell (WBC) count Ordered By: Justin Das on 11-13-2024 WBC (Bld) [#/Vol] 5.2 10*3/uL 4.4-11.0 [facility] CNOVSPon 10-21-2024 CNOVSP Visit (SP) Office (KASANDRA) LOVE PINO ([id number]) 1950 F TXT Date Time Provider Department 10/21/24 9:00 AM VAZ, EFFIE HEMAWS During your visit today, we recorded the following information about you: Temperature Pulse Blood pressure Weight 97.6 degrees 90/minute 134/85 87 kg Effie Vaz APRN.CNP 10/21/2024 9:34 AM Signed Chief Complaint Patient [...] nuclear grade 2. ER >90%, strong and NH 60%, weak to moderate. HER2 quantified at [...] biopsy for new right sided lobular carcinoma. NGS/biomarkers/oil transport driver mutation analyses: Shannan genetic testing negative. [...] previous note: Assessment: -New pT1c(m) pNX M0 ER/NH positive, HER2 negative invasive lobular carcinoma of the right breast. 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 Effie Vaz APRN.HYDRO TECHNICIAN Allergies As of Date: 10/21/2024 Noted Allergy Reaction PENI (more content not included)... Normal [facility] CNOVon 10-19-2024 CNOV Office Visit (BRSM ) LOVE PINO ([id number]) 1950 F TXT Date Time Provider Department 10/19/24 9:00 AM REMINGTON SUNG [facility] During your visit today, we recorded the following information about you: Pulse Respiration Blood pressure Weight 86/minute 14/minute 157/84 88 kg Remington Sung MD 10/19/2024 1:26 PM Signed October 19, 2024 Love Pino 1950 ELEM: Love is here today for her routine breast check. She is now 6 months out from a right partial mastectomy with radiation therapy. She is taking exemestane and tolerating it well. She is 9 years out from a left partial mastectomy with sentinel node biopsy, axillary node biopsy, radiation, and 5 years of Anastrozole therapy. She follows with her oncologist in [place]. She had genetic testing that was negative [...] capsule by mouth once daily. LD 03/24 Jnzcnwls-Awiroyk-Cfak-L utein tab Take 1 tablet by mouth [...] edema. P (more content not included)... Normal [facility] CBC W Auto Differential pane l (Bld)on 10-06-2024 Basophils (Bld) [#/Vol] 0.05 10*3/uL [facility] Basophils/100 WBC (Bld) 0.9 % [facility] Differential cell count method Nom (Bld) Auto [facility] Eosinophils (Bld) [#/Vol] 0.21 10*3/uL [facility] Eosinophils/100 WBC (Bld) 4 % [facility] Erythrocyte distribution width (RBC) [Ratio] 13.1 % 11.5 - 15.0 % [facility] Hematocrit (Bld) [Volume fraction] 46.8 % High 36.0 - 46.0 % [facility] Hemoglobin (Bld) [Mass/Vol] 14.9 g/dL 11.5 - 15.5 g/dL [facility] Immature granulocytes (Bld) [#/Vol] [facility] Immature granulocytes/100 WBC (Bld) 0.2 % [facility] Interpretation and review of laboratory results Abnormal [facility] Lymphocytes (Bld) [#/Vol] 1.59 10*3/uL [facility] Lymphocytes/100 WBC (Bld) 29.9 % [facility] MCH (RBC) [Entitic mass] 29.5 pg 26.0 - 34.0 pg [facility] MCHC (RBC) [Mass/Vol] 31.8 g/dL 30.5 - 36.0 g/dL [facility] MCV (RBC) [Entitic vol] 92.7 fL 80.0 - 100.0 fL [facility] Monocytes (Bld) [#/Vol] 0.74 10*3/uL [facility] Monocytes/100 WBC (Bld) 13.9 % [facility] Neutrophils (Bld) [#/Vol] 2.71 10*3/uL [facility] Neutrophils/100 WBC (Bld) 51.1 % [facility] Nucleated RBC (Bld) [#/Vol] [facility] Nucleated RBC/100 WBC (Bld) [Ratio] 0 % /100 WBC [facility] Platelet mean volume (Bld) [Entitic vol] 9.3 fL 9.0 - 12.7 fL [facility] Platelets (Bld) [#/Vol] 382 10*3/uL [facility] RBC (Bld) [#/Vol] 5.05 10*6/uL 3.90 - 5.2 0 m/uL [facility] WBC (Bld) [#/Vol] 5.31 10*3/uL [facility] Basophils (Bld) [#/Vol] 0.05 10*3/uL Normal <0.11 [facility] Comment on above: Order Comment: Speci men Type: BLOOD SPECIMENOrdering Facility: [facility] Address: [address] [place] [address] Performed By: #### 5 7021-8 ####[facility] LABCLIA [id number] [address] [place] Basophils/100 WBC (Bld) 0.9 % Normal [facility] Comment on above: Order Comment: Speci men Type: BLOOD SPECIMENOrdering Facility: [facility] Address: [address] [place] [address] Performed By: #### 5 7021-8 ####[facility] LABCLIA [id number] [place] [address] [place] Differential cell count method Nom (Bld) Auto Normal [facility] Comment on above: Order Comment: Speci men Type: BLOOD SPECIMENOrdering Facility: [facility] Address: [address] [place] [address] Performed By: #### 5 7021-8 ####[facility] LABCLIA [id number] [place] [address] [place] Eosinophils (Bld) [#/Vol] 0.21 10*3/uL Normal <0.46 [facility] Comment on above: Order Comment: Speci men Type: BLOOD SPECIMENOrdering Facility: [facility] Address: [address] [place] [address] Performed By: #### 5 7021-8 ####[facility] LABCLIA [id number] [place] [address] [place] Eosinophils/100 WBC (Bld) 4.0 % Normal [facility] Comment on above: Order Comment: Speci men Type: BLOOD SPECIMENOrdering Facility: [facility] Address: [address] [place] [address] Performed By: #### 5 7021-8 ####[facility] LABCLIA [id number] [place] [id number] [place] Erythrocyte distribution width (RBC) [Ratio] 13.1 % Normal 11.5-15.0 [facility] Comment on above: Order Comment: Speci men Type: BLOOD SPECIMENOrdering Facility: [facility] Address: [address] [place] [address] Performed By: #### 5 7021-8 ####[facility] LABCLIA [id number] [place] [address] [place] Hematocrit (Bld) [Volume fraction] 46.8 % High 36.0-46.0 [facility] Comment on above: Order Comment: Speci men Type: BLOOD SPECIMENOrdering Facility: [facility] Address: [address] [place] [address] Performed By: #### 5 7021-8 ####[facility] LABCLIA [id number] [place] [address] [place] Hemoglobin (Bld) [Mass/Vol] 14.9 g/dL Normal 11.5-15.5 [facility] Comment on above: Order Comment: Speci men Type: BLOOD SPECIMENOrdering Facility: [facility] Address: [address] [place] [address] Performed By: #### 5 7021-8 ####[facility] LABCLIA [id number] [place] [address] [place] Immature granulocytes (Bld) [#/Vol] 10*3/uL Normal <0.10 [facility] Comment on above: Order Comment: Speci men Type: BLOOD SPECIMENOrdering Facility: [facility] Address: [address] [place] [address] Performed By: #### 5 7021-8 ####[facility] LABCLIA [id number] [place] [address] [place] Immature granulocytes/100 WBC (Bld) 0.2 % Normal [facility] Comment on above: Order Comment: Speci men Type: BLOOD SPECIMENOrdering Facility: [facility] Address: [address] [place] [address] Performed By: #### 5 7021-8 ####[facility] LABCLIA [id number] [place] [address] [place] Lymphocytes (Bld) [#/Vol] 1.59 10*3/uL Normal 1.00-4.00 [facility] Comment on above: Order Comment: Speci men Type: BLOOD SPECIMENOrdering Facility: [facility] Address: [address] [place] [address] Performed By: #### 5 7021-8 ####[facility] LABIA [id number] [place] [address] [place] Lymphocytes/100 WBC (Bld) 29.9 % Normal [facility] Comment on above: Order Comment: Speci men Type: BLOOD SPECIMENOrdering Facility: [facility] Address: [address] [place] [address] Performed By: #### 5 7021-8 ####[facility] LABIA [id number] [place] [address] [place] MCH (RBC) [Entitic mass] 29.5 pg Normal 26.0-34.0 [facility] Comment on above: Order Comment: Speci men Type: BLOOD SPECIMENOrdering Facility: [facility] Address: [address] [place] [address] Performed By: #### 5 7021-8 ####[facility] LABIA [id number] [place] [address] [place] MCHC (RBC) [Mass/Vol] 31.8 g/dL Normal 30.5-36.0 [facility] Comment on above: Order Comment: Speci men Type: BLOOD SPECIMENOrdering Facility: [facility] Address: [address] [place] [address] Performed By: #### 5 7021-8 ####[facility] LABIA [id number] [place] [address] [place] MCV (RBC) [Entitic vol] 92.7 fL Normal 80.0-100.0 C [facility] Comment on above: Order Comment: Speci men Type: BLOOD SPECIMENOrdering Facility: [facility] Address: [address] [place] [address] Performed By: #### 5 7021-8 ####[facility] LABCLIA [id number] [facility] [address] [place] [address] [place] Monocytes (Bld) [#/Vol] 0.74 10*3/uL Normal <0.87 [facility] Comment on above: Order Comment: Speci men Type: BLOOD SPECIMENOrdering Facility: [facility] Address: [address] [place] [address] Performed By: #### 5 7021-8 ####[facility] LABCLIA [id number] [facility] [address], [facility]95 [place] Monocytes/100 WBC (Bld) 13.9 % Normal [facility] Comment on above: Order Comment: Speci men Type: BLOOD SPECIMENOrdering Facility: [facility] Address: [address] [place] [address] Performed By: #### 5 7021-8 ####[facility] LABCLIA [id number] [place] [address] [place] Neutrophils (Bld) [#/Vol] 2.71 10*3/uL Normal 1.45-7.50 [facility] Comment on above: Order Comment: Speci men Type: BLOOD SPECIMENOrdering Facility: [facility] Address: [address] [place] [address] Performed By: #### 5 7021-8 ####[facility] LABCLIA [id number] [address], [place] [address] [place] Neutrophils/100 WBC (Bld) 51.1 % Normal [facility] Comment on above: Order Comment: Speci men Type: BLOOD SPECIMENOrdering Facility: [facility] Address: [address] [place] [address] Performed By: #### 5 7021-8 ####[facility] LABCLIA [id number] [place] [id number] [place] Nucleated RBC (Bld) [#/Vol] 10*3/uL Normal <0.01 [facility] Comment on above: Order Comment: Speci men Type: BLOOD SPECIMENOrdering Facility: [facility] Address: [address] [place] [address] Performed By: #### 5 7021-8 ####[facility] LABCLIA [id number] [place] [address] [place] Nucleated RBC/100 WBC (Bld) [Ratio] 0.0 /100 WBC Normal [facility] Comment on above: Order Comment: Speci men Type: BLOOD SPECIMENOrdering Facility: [facility] Address: [address] [place] [address] Performed By: #### 5 7021-8 ####[facility] LABIA [id number] [place] [address] [place] Platelet mean volume (Bld) [Entitic vol] 9.3 fL Normal 9.0-12.7 [facility] Comment on above: Order Comment: Speci men Type: BLOOD SPECIMENOrdering Facility: [facility] Address: [address] [place] [address] Performed By: #### 5 7021-8 ####[facility] LABIA [id number] [place] [address] [place] Platelets (Bld) [#/Vol] 382 10*3/uL Normal 150-400 [facility] Comment on above: Order Comment: Speci men Type: BLOOD SPECIMENOrdering Facility: [facility] Address: [address] [place] [address] Performed By: #### 5 7021-8 ####[facility] LABIA [id number] [place] [address] [place] RBC (Bld) [#/Vol] 5.05 10*6/uL Normal 3.90-5.20 [facility] [place] Comment on above: Order Comment: Speci men Type: BLOOD SPECIMENOrdering Facility: [facility] Address: [address] [place] [address] Performed By: #### 5 7021-8 ####[facility] LABCLIA [id number] [place] [id number] [place] WBC (Bld) [#/Vol] 5.31 10*3/uL Normal 3.70-11.00 [facility] [place] Comment on above: Order Comment: Speci men Type: BLOOD SPECIMENOrdering Facility: [facility] Address: [address] [id number] Performed By: #### 5 7021-8 ####[facility] LABCLIA [id number] [place] [id number] [facility] [place] CNOVon 10-06-2024 CNOV Office Visit (GERALDOWS ) LOVE PINO ([id number]) 1950 F TXT Date Time Provider Department 10/06/24 9:00 AM LIZETH SIFUENTES During your visit today, we recorded the following information about you: Pulse Blood pressure Weight 80/minute 131/82 88 kg Lizeth Sifuentes APRN.HYDRO TECHNICIAN 10/06/2024 9:06 AM Signed Love Duarte Odette [...] Remington Sung MD (General Surgery) Lizeth Sifuentes APRN.HYDRO TECHNICIAN as Eligibility Supervisor (Family Medicine) Tiffany Ugarte PA-C as Eligibility Supervisor (Family Medicine) Medical/Family history review Reviewed and [...] Maternal Gran (more content not included)... Normal [facility] Comprehensive metabolic 2000 panelon 10-06-2024 Albumin [Mass/Vol] 4 g/dL 3.9 - 4.9 g/dL [facility] ALP [Catalytic activity/Vol] 106 U/L 34 - 123 U/L [facility] ALT [Catalytic activity/Vol] 18 U/L 7 - 38 U/L [facility] Anion gap [Moles/Vol] 8 mmol/L 8 - 15 mmol/L [facility] AST [Catalytic activity/Vol] 23 U/L 13 - 35 U/L [facility] Bilirubin [Mass/Vol] 0.2 mg/dL 0.2 - 1 .3 mg/dL [facility] Calcium [Mass/Vol] 10 mg/dL 8.5 - 10. 2 mg/dL [facility] Chloride [Moles/Vol] 103 mmol/L 98 - 10 7 mmol/L [facility] CO2 [Moles/Vol] 29 mmol/L 22 - 30 mmol/L [facility] Creatinine [Mass/Vol] 0.73 mg/dL 0.58 - 0.96 mg/dL [facility] GFR/1.73 sq M.predicted among non-blacks MDRD (S/P/Bld) [Vol rate/Area] 88 mL/min/{1.73_m2} - PINF [facility] Comment on above: Estimated Glomerular Filtration [...] [Mass/Vol] 91 mg/dL 74 - 99 mg/dL [facility] Comment on above: The [place] Diabete s Association (ADA) provides guidance for [...] Standards of Medical Care in Diabetes 2016, [place] Diabetes Association. Diabetes Care. 2016.39(Suppl 1). Interpretation and review of laboratory results Normal [facility] Potassium [Moles/Vol] 5 mmol/L 3.7 - 5.1 mmol/L [facility] Protein [Mass/Vol] 7.4 g/dL 6.3 - 8.0 g/dL [facility] Sodium [Moles/Vol] 140 mmol/L 136 - 144 mmol/L [facility] Urea nitrogen [Mass/Vol] 18 mg/dL 7 - 21 mg/dL [facility] Albumin [Mass/Vol] 4.0 g/dL Normal 3.9-4.9 [facility] Comment on above: Order Comment: Speci men Type: BLOOD SPECIMENOrdering Facility: [facility] Address: [address] [place] [id number] Performed By: #### 2 4323-8, LIPNF ####[facility] LABCLIA [id number] [address] [place] [address] [place] ALP [Catalytic activity/Vol] 106 U/L Normal 34-123 [facility] Comment on above: Order Comment: Speci men Type: BLOOD SPECIMENOrdering Facility: [facility] Address: [address] [place] [address] Performed By: #### 2 4323-8, LIPNF ####[facility] LABCLIA [id number] [place] [id number] [place] ALT [Catalytic activity/Vol] 18 U/L Normal 7-38 [facility] Comment on above: Order Comment: Speci men Type: BLOOD SPECIMENOrdering Facility: [facility] Address: [address] [place] [address] Performed By: #### 2 4323-8, LIPNF ####[facility] LABCLIA [id number] [address], [facility]95 [place] Anion gap [Moles/Vol] 8 mmol/L Normal 8-15 [facility] Comment on above: Order Comment: Speci men Type: BLOOD SPECIMENOrdering Facility: [facility] Address: [address] [place], [place] [address] Performed By: #### 2 4323-8, LIPNF ####[facility] LABCLIA [id number] [facility] [address] [place] [address] [place] AST [Catalytic activity/Vol] 23 U/L Normal 13-35 [facility] Comment on above: Order Comment: Speci men Type: BLOOD SPECIMENOrdering Facility: [facility] Address: [address] [place], [place] [address] Performed By: #### 2 4323-8, LIPNF ####[facility] LABCLIA [id number] [facility] [address] [place] [address] [place] Bilirubin [Mass/Vol] 0.2 mg/dL Normal 0.2-1.3 [facility] Comment on above: Order Comment: Speci men Type: BLOOD SPECIMENOrdering Facility: [facility] Address: [address] [place] [address] Performed By: #### 2 4323-8, LIPNF ####[facility] LABCLIA [id number] [place] [address] [place] Calcium [Mass/Vol] 10.0 mg/dL Normal 8.5-10.2 [facility] Comment on above: Order Comment: Speci men Type: BLOOD SPECIMENOrdering Facility: [facility] Address: [address] [place] [address] Performed By: #### 2 4323-8, LIPNF ####[facility] LABCLIA [id number] [place] [address] [place] Chloride [Moles/Vol] 103 mmol/L Normal 98-107 [facility] Comment on above: Order Comment: Speci men Type: BLOOD SPECIMENOrdering Facility: [facility] Address: [address] [place] [address] Performed By: #### 2 4323-8, LIPNF ####[facility] LABCLIA [id number] [place] [address] [place] CO2 [Moles/Vol] 29 mmol/L Normal 22-30 [facility] Comment on above: Order Comment: Speci men Type: BLOOD SPECIMENOrdering Facility: [facility] Address: [address] [place], [place] [address] Performed By: #### 2 4323-8, LIPNF ####[facility] LABCLIA [id number] [place] [id number] [place] Creatinine [Mass/Vol] 0.73 mg/dL Normal 0.58-0.96 [facility] Comment on above: Order Comment: Speci men Type: BLOOD SPECIMENOrdering Facility: [facility] Address: [address] [place] [address] Performed By: #### 2 4323-8, LIPNF ####[facility] LABIA [id number] [place] [address] [place] Creatinine and Glomerular filtration rate.predicted panel (S/P/Bld) 88 mL/min/1.73m??? Normal >=60 [facility] Comment on above: Order Comment: Efraín peck Type: BLOOD SPECIMENOrdering Facility: [facility] Address: [address] [place] [address] Result Comment: Dorota mated Glomerular Filtration Rate [...] GFR. Performed By: #### 2 4323-8, LIPNF ####[facility] LABCLIA [id number] [place] [address] [place] Glucose [Mass/Vol] 91 mg/dL Normal 74-99 [facility] Comment on above: Order Comment: Efraín peck Type: BLOOD SPECIMENOrdering Facility: [facility] Address: [address] [place] [address] Result Comment: The [place] Diabetes Association (ADA) provides guidance for cutoff [...] Standards of Medical Care in Diabetes 2016, [place] Diabetes Association. Diabetes Care. 2016.39(Suppl 1). Performed By: #### 2 4323-8, LIPNF ####[facility] LABCLIA [id number] [address] [place] [address] [place] Potassium [Moles/Vol] 5.0 mmol/L Normal 3.7-5.1 [facility] Comment on above: Order Comment: Speci men Type: BLOOD SPECIMENOrdering Facility: [facility] Address: [address] [place] [address] Performed By: #### 2 4323-8, LIPNF ####[facility] LABCLIA [id number] [address], [facility]95 [place] Protein [Mass/Vol] 7.4 g/dL Normal 6.3-8.0 [facility] Comment on above: Order Comment: Speci men Type: BLOOD SPECIMENOrdering Facility: [facility] Address: [address] [place] [address] Performed By: #### 2 4323-8, LIPNF ####[facility] LABCLIA [id number] [address], [facility]95 [place] Sodium [Moles/Vol] 140 mmol/L Normal 136-144 [facility] Comment on above: Order Comment: Speci men Type: BLOOD SPECIMENOrdering Facility: [facility] Address: [address] [place], [place] [address] Performed By: #### 2 4323-8, LIPNF ####[facility] LABCLIA [id number] [address] [place] [address] [place] Urea nitrogen [Mass/Vol] 18 mg/dL Normal 7-21 [facility] Comment on above: Order Comment: Speci men Type: BLOOD SPECIMENOrdering Facility: [facility] Address: [address] [place], [place] [address] Performed By: #### 2 4323-8, LIPNF ####[facility] LABCLIA [id number] [address] [address] [place] HbA1c (Bld)on 10-06-2024 Average glucose Estimated from glycated hemoglobin (Bld) [Mass/Vol] 120 mg/dL Normal [facility] Comment on above: Order Comment: Efraín peck Type: BLOOD SPECIMENOrdering Facility: [facility] Address: [address] [place] [address] Result Comment: eAG: (Estimated average glucose) is a calculated value from HgbA1c and is enrollment representative of the average blood glucose level in the last 2-3 month period. Performed By: #### 5 5454-3 ####[facility] LABCLIA [id number] [address] [place] [facility] HbA1c (Bld) [Mass fraction] 5.8 % High 4.3-5.6 [facility] Comment on above: Order Comment: Efraín peck Type: BLOOD SPECIMENOrdering Facility: [facility] Address: [address] [place] [address] Result Comment: [place] Diabetes Association guidelines indicate that patients with HgbA1c in the range 5.7-6.4% are at increased risk for development of diabetes, and intervention by lifestyle modification may be beneficial. HgbA1c greater or equal to 6.5% is considered diagnostic of diabetes. Performed By: #### 5 5454-3 ####[facility] LABCLIA [id number] [address] [place] LIPID PANEL, NONFASTINGon Cholesterol [Mass/Vol] 187 mg/dL NINF - 200 mg/dL [facility] Comment on above: <200 mg/dL, Desirabl e 200-239 mg/dL, Borderline high >239 mg/dL, High HDL Cholesterol, Nonfasting 46 mg/dL 39 - PINF mg/dL [facility] Comment on above: 40-59 mg/dL, Accepta ble >59 mg/dL, High: Negative risk factor for coronary heart disease <40 mg/dL, Low: Positive risk factor for coronary heart disease Interpretation and review of laboratory results Abnormal [facility] LDL Cholesterol Calculated, Nonfasting 118 mg/dL High NINF - 100 mg/dL [facility] Comment on above: <100 mg/dL, Optimal 100-129 mg/dL, Near optimal/above optimal 130-159 mg/dL, Borderline high 160-189 mg/dL, High >189 mg/dL, Very high Secondary prevention optimal LDL Cholesterol levels are recommended to be <70 mg/dL LDL cholesterol is calculated using the Perrin-NIH equation. LDL/HDL Ratio, Nonfasting 2.57 mg/dL High NINF - 2.54 mg/dL [facility] Comment on above: Reference: 1. National Cholesterol Education Program ATP III Guideline At-A-Glance Quick Desk Reference: National Heart, Lung, and Blood [place]. National Institutes of Health. 2001: NIH Publication No. 01-3305. 2. An International Atherosclerosis Society position paper: global recommendations for the management of dyslipidemia: executive summary, Atherosclerosis. 2014: 232(2):410-413. Non HDL Cholesterol, Nonfasting 141 mg/dL High NINF - 130 mg/dL [facility] Comment on above: <130 mg/dL, Optimal 130-159 mg/dL, Near optimal/above optimal 160-189 mg/dL, Borderline high 190-219 mg/dL, High >219 mg/dL, Very high Secondary prevention optimal non HDL Cholesterol levels are recommended to be <100 mg/dL Total Chol/HDL Ratio, Nonfasting 4.07 mg/dL NINF - 5.10 mg/dL [facility] Triglycerides, Nonfasting 130 mg/dL [facility] 150 mg/dL [facility] Comment on above: <150 mg/dL, Normal 150-199 mg/dL, Borderline high 200-499 mg/dL, High >499 mg/dL, Very high VLDL Cholesterol, Nonfasting 22 mg/dL NINF - 30 mg/dL [facility] Cholesterol [Mass/Vol] 187 mg/dL Normal <200 [facility] Comment on above: Order Comment: Speci men Type: BLOOD SPECIMENOrdering Facility: [facility] Address: [address] [place] [address] Result Comment: <200 mg/dL, Desirable 200-239 mg/dL, Borderline high >239 mg/dL, High Performed By: #### 2 4323-8, LIPNF ####[facility] LABCLIA [id number] [place] [address] [place] HDL CHOLESTEROL, NF 46 mg/dL Normal >39 [facility] Comment on above: Order Comment: Speci liv Type: BLOOD SPECIMENOrdering Facility: [facility] Address: [address] [place] [address] Result Comment: 40-5 9 mg/dL, Acceptable >59 mg/dL, High: Negative risk factor for coronary heart disease <40 mg/dL, Low: Positive risk factor for coronary heart disease Performed By: #### 2 4323-8, LIPNF ####[facility] LABCLIA [id number] [address] LDL CHOLESTEROL CALCULATED, NF 118 mg/dL High <100 [facility] Comment on above: Order Comment: Tyravitor peck Type: BLOOD SPECIMENOrdering Facility: [facility] Address: [address] [place] [address] Result Comment: <100 mg/dL, Optimal 100-129 mg/dL, Near optimal/above optimal 130-159 mg/dL, Borderline high 160-189 mg/dL, High >189 mg/dL, Very high Secondary prevention optimal LDL Cholesterol levels are recommended to be <70 mg/dL LDL cholesterol is calculated using the Perrin-NIH equation. Performed By: #### 2 4323-8, LIPNF ####[facility] LABCLIA [id number] [address] OF [place] LDL/HDL RATIO, NF 2.57 mg/dL High <2.54 [facility] Comment on above: Order Comment: Specvitor peck Type: BLOOD SPECIMENOrdering Facility: [facility] Address: [address] [place] [address] Result Comment: Refe rence: 1. National Cholesterol Education Program ATP III Guideline At-A-Glance Quick Desk Reference: National Heart, Lung, and Blood [place]. National Institutes of Health. 2001: NIH Publication No. 01-3305. 2. An International Atherosclerosis Society position paper: global recommendations for the management of dyslipidemia: executive summary, Atherosclerosis. 2014: 232(2):410-413. Performed By: #### 2 4323-8, LIPNF ####[facility] LABCLIA [id number] [place] [id number] [place] NON HDL CHOL, NF 141 mg/dL High <130 [facility] Comment on above: Order Comment: Speci men Type: BLOOD SPECIMENOrdering Facility: [facility] Address: [address] [place] [address] Result Comment: <130 mg/dL, Optimal 130-159 mg/dL, Near optimal/above optimal 160-189 mg/dL, Borderline high 190-219 mg/dL, High >219 mg/dL, Very high Secondary prevention optimal non HDL Cholesterol levels are recommended to be <100 mg/dL Performed By: #### 2 4323-8, LIPNF ####[facility] LABCLIA [id number] [place] [address] [place] T CHOL/HDL RATIO NF 4.07 mg/dL Normal <5.10 [facility] Comment on above: Order Comment: Speci men Type: BLOOD SPECIMENOrdering Facility: [facility] Address: [address] [place] [address] Performed By: #### 2 4323-8, LIPNF ####[facility] LABCLIA [id number] [place] [address] [place] TRIGLYCERIDES, NF 130 mg/dL Normal <150 [facility] Comment on above: Order Comment: Speci men Type: BLOOD SPECIMENOrdering Facility: [facility] Address: [address] [place] [address] Result Comment: <150 mg/dL, Normal 150-199 mg/dL, Borderline high 200-499 mg/dL, High >499 mg/dL, Very high Performed By: #### 2 4323-8, LIPNF ####[facility] LABCLIA [id number] [place] [address] [place] VLDL CHOLESTEROL, NF 22 mg/dL Normal <30 [facility] Comment on above: Order Comment: Speci men Type: BLOOD SPECIMENOrdering Facility: [facility] Address: [address] [place], [place] [address] [address] Performed By: #### 2 4323-8, LIPNF ####[facility] LABCLIA [id number] [facility]ENTER[facility]ma RUDOLPH [address] [place] No Panel Informationon 10-06 [facility] CNOVSPon 07-14-2024 CNOVSP Visit (SP) Office (ITZELAWS) LOVE PINO ([id number]) 1950 F TXT Date Time Provider Department 07/14/24 1:00 PM EFFIE VAZ During your visit today, we recorded the following information about you: Temperature Pulse Blood pressure Weight 98.5 degrees 93/minute 130/82 87 kg Effie Vaz APRN.HYDRO TECHNICIAN 07/16/2024 10:22 AM Signed Chief Complaint Patient [...] nuclear grade 2. ER >90%, strong and NH 60%, weak to moderate. HER2 quantified at [...] biopsy for new right sided lobular carcinoma. NGS/biomarkers/oil transport driver mutation analyses: Ambry genetic testing negative. 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 Effie Vaz, DOMINGO.HYDRO TECHNICIAN Allergies As of Date: 07/14/2024 Noted Allergy Reaction PENICILLIN 01/12/2016 10 - Anaphylaxis SULFA (SULFONAMIDE ANTIBIOTICS) 01/12/2016 9 - Itchin (more content not included)... Normal [facility] CNOVon 06-22-2024 CNOV Office Visit (BRSTMM ) LOVE PINO ([id number]) 1950 F TXT Date Time Provider Department 06/22/24 10:00 AM REMINGTON SUNG BRSM During your visit today, we recorded the following information about you: Pulse Respiration Blood pressure Weight 96/minute 14/minute 148/90 87.1 kg Remington Sung MD 06/22/2024 10:20 AM Signed Subjective: Love is here today for her [...] was discussed with the patient or authorized enrollment representative. The patient or authorized enrollment representative has agreed to proceed with the [...] by mouth once daily. LD 03/24 - Gkzqjnkm-Qavftri-Uxrc-L utein tab Take 1 tablet by mouth once daily. 03/24 Problem List As Of Date 06/22/2024 [...] Date Provider De (more content not included)... [facility] Jon 06-22-2024 HANHN Telephone (KASANDRA) LOVE PINO ([id number]) 1950 F TXT Date Time Provider Department [...] mailed to pt. Pt. Would like for CUFF CUTTER to contact her to go over the results of the DXA ( interpret what her scores mean and where is in the spectrum of Osteoporosis) MALIKA Mcginnis Darby, APRN.CNP 07/10/2024 11:52 AM Signed Will review with pt. at [facility] next week. Effie Vaz APRN.HANH Allergies [...] by mouth once daily. LD 03/24 - Gcqvphcj-Gwlhjnv-Qmrm-L utein tab Take 1 tablet by mouth [...] Status:Closed by LESVIA GIRARD on 07/10/24 Normal [facility] BD DXA - AXIAL SKELETONon BD DXA - AXIAL SKELETON * * *Final Repor t* * * DATE OF EXAM: Jun 18 2024 2:35PM [facility] 0804 - BD DXA - AXIAL SKELETON / PROCEDURE REASON: multiple diagnoses * * * * Physician Interpretation * * * * EXAMINATION: DXA BONE DENSITOMETRY BD DXA - AXIAL SKELETON, BD DXA TRABECLR BONE SCORE (TBS) PATIENT DEMOGRAPHICS: Age: 73 years, Gender: Female SCANNER INFORMATION: DXA Model: Nerdies - 3i Systems C 90820 Date Scanned: 06/18/2024 2:35 PM CLINICAL HISTORY: [...] FOR MORE INFORMATION ABOUT DIAGNOSIS AND TREATMENT: [facility] Center for Osteoporosis and Metabolic Bone Disease:? www.ccf.org/arthritis/o steo National Osteoporosis Foundation:? www.nof.org International Society of Clinical Densitometry www.iscd.org Brim Pouncer: JACE Transcribe Date/Time: Jun 22 2024 5:22A Dictated by : RADHA CURTIS MD This examination was interpreted and the report reviewed and electronically signed by: RADHA CURTIS MD on Jun 22 2024 5:26AM EST [id number] -2.8 Normal [facility] BD DXA TRABECLR BONE SCORE ( TBS)on 06-18-2024 BD DXA TRABECLR BONE SCORE (TBS) * * *Final Report* * * DATE OF EXAM: Jun 18 2024 2:35PM DESIREE 0801 - BD DXA TRABECLR BONE SCORE (TBS) / PROCEDURE REASON: multiple diagnoses * * * * Physician Interpretation * * * * EXAMINATION: DXA BONE DENSITOMETRY BD DXA - AXIAL SKELETON, BD DXA TRABECLR BONE SCORE (TBS) PATIENT DEMOGRAPHICS: Age: 73 years, Gender: Female SCANNER INFORMATION: DXA Model: Bilims C 46550 Date Scanned: 06/18/2024 2:35 PM CLINICAL HISTORY: [...] FOR MORE INFORMATION ABOUT DIAGNOSIS AND TREATMENT: [facility] for Osteoporosis and Metabolic Bone Disease:? www.ccf.org/arthritis/o steo National Osteoporosis Foundation:? www.nof.org International Society of Clinical Densitometry www.iscd.org Brim Pouncer: JACE Transcribe Date/Time: Jun 22 2024 5:22A Dictated by : RADHA CURTIS MD This examination was interpreted and the report reviewed and electronically signed by: RADHA CURTIS MD on Jun 22 2024 5:26AM EST [id number] -2.8 Normal [facility] CNOVon 06-09-2024 CNOV Office Visit (RADTWS ) LOVE PINO ([id number]) 1950 F TXT Date Time Provider Department 06/09/24 9:45 AM JUAN LOPEZ During your visit today, we recorded the following information about you: Temperature Pulse Blood pressure 98.7 degrees 84/minute 120/79 Bryanna Siu RN 06/09/2024 10:13 AM Signed Radiation Therapy - Nursing Note (OTV) PATIENT NAME: Love Pino PATIENT June 09, 2024 [facility]: [facility] NOTE TYPE: BREAST Subjective Data see pain assessment, also some headache Additional Data Do you want to see a Mill Set Up? No Status: Post-menopausal. Stress Scale: On a scale of 0 to 10, what number best describes how much distress you have experienced in the past week?(0 being no distress and 10 being extreme distress) 1 Social work notified: Pt denied need to see social services director at this time. Nursing Assessment Fatigue: increased [...] on 03/30/24. It's ER positive (90%, strong), NH positive (95%, strong) and Her2 0. COURSE: [...] by mouth once daily. LD 03/24 - Extfshdb-Hsdynkc-Nqyx-L utein tab Take 1 tablet by mouth [...] [Z71.8*12/26/2021 Ag (more content not included)... Normal [facility] CNOVon 06-02-2024 CNOV Office Visit (RADTWS ) LOVE PINO ([id number]) 1950 F TXT Date Time Provider Department 06/02/24 9:45 AM JUAN LOPEZ RADTWS During your visit today, we recorded the following information about you: Temperature Pulse Blood pressure 98.6 degrees 87/minute 117/84 Bryanna Siu, RN 06/02/2024 9:40 AM Signed Radiation Therapy - Nursing Note (OTV) PATIENT NAME: Love Pino PATIENT June 02, 2024 [facility]LOC[facility]: [place] NURSING NOTE TYPE: BREAST Subjective Data some tenderness in right nipple area Additional Data Do you want to see a Mill Set Up? No Status: Post-menopausal. Stress Scale: On a scale of 0 to 10, what number best describes how much distress you have experienced in the past week?(0 being no distress and 10 being extreme distress) 2 Social work notified: Pt denied need to see social services director at this time. Nursing Assessment Fatigue: increased [...] on 03/30/24. It's ER positive (90%, strong), NH positive (95%, strong) and Her2 0. COURSE: [...] by mouth once daily. LD 03/24 - Ylklvbiq-Rsjpbqn-Yngo-L utein tab Take 1 tablet by mouth [...] Age-related os (more content not included)... Normal [facility] CNOVon 05-26-2024 CNOV Office Visit (RADTWS ) ODETTELOVE PAL ([id number]) 1950 F TXT Date Time Provider Department 05/26/24 9:45 AM JUAN LOPEZ RADTWS During your visit today, we recorded the following information about you: Temperature Pulse Blood pressure 98.6 degrees 79/minute 122/85 Bryanna Siu, COLT 05/26/2024 9:50 AM Signed Radiation Therapy - Nursing Note (OTV) PATIENT NAME: Love Pino PATIENT May 26, 2024 [facility]: [place] NURSING NOTE TYPE: BREAST Subjective Data no complaints Additional Data Do you want to see a Mill Set Up? No Status: Post-menopausal. Stress Scale: On a scale of 0 to 10, what number best describes how much distress you have experienced in the past week?(0 being no distress and 10 being extreme distress) 1 Social work notified: Pt denied need to see social services director at this time. Nursing Assessment Fatigue: none [...] on 03/30/24. It's ER positive (90%, strong), NH positive (95%, strong) and Her2 0. COURSE: [...] by mouth once daily. LD 03/24 - Kfbftysz-Iuajycn-Xwgf-L utein tab Take 1 tablet by mouth [...] outer quadr* (more content not included)... Normal [facility] CNNURSEon 05-20-2024 CNNURSE Nurse Visit (RADTWS) LOVE PINO ([id number]) 1950 F TXT Date Time Provider Department 05/20/24 1:30 PM [facility] During your visit today, we recorded the following information about you: Bryanna Siu RN 05/20/2024 2:43 PM Signed Radiation Therapy - Patient Education Note PATIENT NAME: Love Pino PATIENT May 20, 2024 [facility]: [place] READINESS TO LEARN Cognitive Ability: Alert and [...] need for social work, van service, and safety leader. Patient has an Onbody or Implanted device: No Signed by: Bryanna Siu, RN Allergies As of Date: 05/20/2024 Noted [...] by mouth once daily. LD 03/24 - Lkxhwmwp-Jbohbyt-Kwaj-L utein tab Take 1 tablet by mouth [...] Status:Closed by BRYANNA SIU on 05/20/24 Normal [facility] 25(OH)D3 [facility] 25-hydroxyvitamin D3 [Mass/Vol] 42.1 ng/mL Normal 31.0-80.0 [facility] Comment on above: Order Comment: Speci men Type: BLOOD SPECIMENOrdering Facility: [facility] Address: [address] [place] [address] Performed By: #### 1 989-3 ####[facility] LABCLIA [id number] [address] [place] CNOVSPon 05-14-2024 CNOVSP Visit (SP) Office (KASANDRA) LOVE PINO ([id number]) 1950 F TXT Date Time Provider Department 05/14/24 12:10 PM MASCI, IBRAHIMA A HEMAWS During your visit today, we recorded the following information about you: Temperature Pulse Blood pressure Weight 98.2 degrees 95/minute 132/86 87.1 kg Katiuska Ramirezbrittney MaloneMALIKA 05/14/2024 4:07 PM Signed Est. Pt. 6-8 week F/U Irlanda RamirezMALIKA Ibrahima Dhaliwal DO 05/14/2024 4:07 PM Signed Diagnosis: 1) [...] nuclear grade 2. ER >90%, strong and NH 60%, weak to moderate. HER2 quantified at [...] acute distress. EYES: Sclerae are anicteric bilaterally. NGS/biomarkers/oil transport driver mutation analyses: Ambry genetic testing negative. ASSESSMENT/PLAN: (C50.412) Breast cancer of upper-outer quadrant of left female breast (HCC) (primary encounter diagnosis) Assessment: -New pT1c(m) pNX M0 ER/NH positive, HER2 negative invasive lobular carcinoma of the right breast. -History of a pT1 (1.9 cm; grade 2; LVI+) pN1a MX ER/NH positive HER2 negative stage IIA invasive ductal [...] which included preparing to see the patient, ynsc-in-zhqa patient care, completing clinical documentation, counseling and educating the patient/family/caregive r, ordering medications, tests, or procedures, communicating with other HCPs (not separately reported), and communicating results to the patient/family/caregive r. Ibrahima Dhaliwal DO Allergies As of Date: 05/14/2024 Noted Allergy Reaction PENICILLIN 01/12/2016 10 - Anaphylaxis SULFA (SULFONAMIDE ANTIBIOTICS) 01/12/2016 9 - Itching Date Reviewed: 05/14/2024 Re (more content not included)... Normal [facility] CNPNon 05-14-2024 CNPN Telephone (KASANDRA) LOVE PINO Gerald ([id number]) 1950 F TXT Date Time Provider Department [...] by mouth once daily. LD 03/24 - Hcpouhoy-Cbqxitf-Bhhi-L utein tab Take 1 tablet by mouth [...] Preop testing [Z01.818] 03/30/2024 Encounter Status:Closed by LEANN ALCANTAR on 05/14/24 [facility] CNOVon 05-07-2024 CNOV Office Visit (RADTWS ) LOVE PINO ([id number]) 1950 F TXT Date Time Provider Department [...] on 03/30/24. It's ER positive (90%, strong), NH positive (95%, strong) and Her2 0. HPI: [...] node dissection. It's ER positive (>90%, strong), NH positive (week to moderate, 60%) and Her2/garry [...] lobular carcinoma. It's ER positive (90%, strong), NH positive (95%, strong) and Her2 0. Right [...] capsule by mouth once daily. LD 03/24 Jvnikbba-Mluqgkv-Lyxe-L utein tab Take 1 tablet by mouth [...] HX Rig (more content not included)... Normal [facility]-07[facility] LOVE PINO ([id number]) 1950 F TXT Date Time Provider Department 05/07/24 LOLY MCKEON [facility] During your visit today, we recorded the [...] LPN - Fully Assessed Prescriptions as of 05/07/2024 [...] by mouth once daily. LD 03/24 - Axufqnah-Puxefex-Sgje-L utein tab Take 1 tablet by mouth [...] Encounter Status:Closed by LOLY MCKEON on 05/07/24 [facility] CNPN Telephone (HEMAWS) LOVE PINO ([id number]) 1950 F TXT Date Time Provider Department [...] by mouth once daily. LD 03/24 - Cvadptbs-Gzdmlgu-Hhnj-L utein tab Take 1 tablet by mouth [...] Encounter Status:Closed by LESVIA GIRARD on 05/07/24 [facility] CNOVon 04-30-2024 CNOV Office Visit (BRSTMM ) LOVE PINO ([id number]) 1950 F TXT Date Time Provider Department 04/30/24 8:00 AM [facility] During your visit today, we recorded the [...] margins were clear. They did see 2 fsgn-xk-yfwy lesions measuring 1.1 and 0.7 cm respectively. [...] discussed with the Patient or Patient's Authorized Tempering Oven Operator. As applicable, any other physician, advance practice provider, medical student, or other health professional student that will be observing or involved in the sensitive examination for educational or training purposes was discussed with the Patient or Authorized Tempering Oven Operator. The Patient or Authorized Tempering Oven Operator has agreed to proceed with the sensitive [...] by mouth once daily. LD 03/24 - Xymrkyqv-Ikwyvrj-Rplp-L utein tab Take 1 tablet by mouth once daily. 03/24 Problem List As Of Date 04/30/2024 [...] of malignant n (more content not included)... [facility] CNOVSPon 04-16-2024 CNOVSP Visit (SP) Office (KASANDRA) LOVE PINO ([id number]) 1950 F TXT Date Time Provider Department [...] nuclear grade 2. ER >90%, strong and NH 60%, weak to moderate. HER2 quantified at [...] discussed with the Patient or Patient's Authorized Tempering Oven Operator. As applicable, any other physician, advance practice provider, medical student, or other health professional student that will be observing or involved in the sensitive examination for educational or training purposes was discussed with the Patient or Authorized Tempering Oven Operator. The Patient or Authorized Tempering Oven Operator has agreed to proceed with the sensitive examination. (Sensitive examination includes inspection and/or palpation of the breasts, pelvis, prostate and anorectal regions) Lesvia Girard LPN chaperonegilma. PHYSICAL EXAM: Vitals: Blood pressure 113/78, pulse [...] No sign of infection. No axillary adenopathy. NGS/biomarkers/oil transport driver mutation analyses: [facility]. ASSESSMENT/PLAN: (C50.412) Breast cancer of upper-outer quadrant of left female breast (HCC) (primary encounter diagnosis) Assessment: -New pT1c(m) pNX M0 ER/NH positive, HER2 negative invasive lobular carcinoma of the right breast. -History of a pT1 (1.9 cm; grade 2; LVI+) pN1a MX ER/NH positive HER2 negative stage IIA invasive ductal [...] on belinda (more content not included)... Normal [facility] CNPNon 04-02-2024 CNPN Telephone ([facility]) LOVE PINO ([id number]) 1950 F TXT Date Time Provider Department 04/02/24 GIANA VELASCO [facility] During your visit today, we recorded the [...] Itching Date Reviewed: 04/01/2024 Reviewed by: Anaya Moss RN - Fully Assessed Prescriptions as of 04/02/2024 [...] by mouth once daily. LD 03/24 - Gmqiwrdo-Roebwom-Fpzt-L utein tab Take 1 tablet by mouth [...] Encounter Status:Closed by GIANA VELASCO on 04/02/24 [facility] ANES POSTPROC EVALon 024 ANES POSTPROC EVAL HNO ID: [id number] Author: NICK DALE DO Service: Anesthesiology Author Type: Anesthesiologist Type: Anesthesia Postprocedure Evaluation Filed: 04/01/2024 15:07 Note Text: POST ANESTHESIA EVALUATION NOTE : 1950 Procedure Summary Date: 04/01/24 Room / Location: OR / OR Anesthesia Start: 1242 Anesthesia Stop: 1349 [...] April 01, 2024 TIME: 3:06 PM CSN: [id number] [facility] ANES PRE-OPon 04-01-2024 ANES PRE-OP HNO ID: [id number] Author: NICK DALE DO Service: Anesthesiology Author [...] and consent discussed: yes. Patient / Responsible Democrat agrees to proceed: yes Patient / Surrogate agrees to blood products: Yes Vitals Value Taken Time BP 130/74 04/01/24 0937 Pulse 73 04/01/24 0937 Resp 18 04/01/24 0725 Temp 36.4 ?C (97.6 ?F) 04/01/24 07 SpO2 98 % 04/01/24 0725 Facility-Administered Medications [...] capsule by mouth once daily. LD 03/24 Auzgbxye-Ckemebe-Gguo-L utein tab Take 1 tablet by mouth once daily. LD 03/24 I have interviewed and examined the patient. I have reviewed the medical record and/or the pre-anesthesia evaluation, pertinent labs, and test results. This contains updated information obtained within 48 hours of Surgery/Procedure. SIGNATURE: Nick Dale DO PATIENT NAME: Love Pino DATE: April 01, 2024 TIME: 11:14 AM CSN: [id number] [facility] Peixe Urbano ONCOTYPE DXon 04-01-2024 Peixe Urbano ONCOTYPE DX RESULT View results in Scanned Documents link when available. [facility] Comment on above: Order Comment: Speci men Type: TISSUE SPECIMENOrdering Facility: [facility] Address: [address] [place] [address] Performed By: #### G ENHLTH ####[employer] HEALTHCLIA [id number] [place] [address] HISTORY PHYSICALon HISTORY PHYSICAL HNO ID: [id number] Author: REMINGTON SUNG MD Service: General Surgery Author Type: Physician Type: H&P Filed: 04/01/2024 08:31 Note Text: UPDATED HISTORY AND PHYSICAL EXAMINATION SERVICE DATE: 04/01/2024 SERVICE TIME: 8:30 AM SENSITIVE EXAMINATION CONSENT: The sensitive examination was discussed with the Patient or Patient's Authorized Tempering Oven Operator. As applicable, any other physician, advance practice provider, medical student, or other health professional student that will be observing or involved in the sensitive examination for educational or training purposes was discussed with the Patient or Authorized Tempering Oven Operator. The Patient or Authorized Tempering Oven Operator has agreed to proceed with the sensitive [...] April 01, 2024 TIME: 8:30 AM Normal [facility] DIAGNOSTIC RTon 04-01-20 [facility] DIAGNOSTIC RT * * *Final Report* * * DATE OF EXAM: Apr 01 2024 10:52AM [facility] 0626 - [facility] DIAGNOSTIC RT / PROCEDURE REASON: Malignant neoplasm of upper-outer 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, unspecified e * * * * Physician Interpretation * * * * [place] [address] [place] [address] #[id number] - [facility] DIAGNOSTIC RT HISTORY: Patient is 73 [...] Pearl Pina M.D. Electronically signed on: 04/01/2024 Brim Pouncer: DARIAN Transc[employer] Date/Time: Apr 01 2024 10:42A Dictated by : PEARL PINA MD This examination was interpreted and the report reviewed and electronically signed by: PEARL PINA MD on Apr 01 2024 10:56AM EST [id number] [facility] SURG BREAST SPECIMEN RTo n 04-01-2024 [facility] SURG BREAST SPECIMEN RT * * *Final Report* * * DATE OF EXAM: Apr 01 2024 1:29PM [facility] 0639 - [facility] SURG BREAST SPECIMEN RT / PROCEDURE REASON: Malignant neoplasm of upper-outer 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, unspecified e * * * * Physician Interpretation * * * * [place] [address] [place] [address] #[id number] - [facility] SURG BREAST SPECIMEN RT HISTORY: Right [...] Pearl Pina M.D. Electronically signed on: 04/01/2024 Brim Pouncer: DARIAN [employer] Date/Time: Apr 01 2024 1:27P Dictated by : PEARL PINA MD This examination was interpreted and the report reviewed and electronically signed by: PEARL PINA MD on Apr 01 2024 1:33PM EST [id number] [facility] US LOC BREAST RTon 04-01 [facility] US LOC BREAST RT * * *Final Report* * * DATE OF EXAM: Apr 01 2024 9:59AM W 0600 - [facility] US LOC BREAST RT / PROCEDURE REASON: Malignant neoplasm of upper-outer 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, unspecified e * * * * Physician Interpretation * * * * [facility] BREAST RT Ordering Physician: REMINGTON SUNG Clinical [...] of informed consent can be found in [facility] under the consent tab. Prior to [...] Uncomplicated ultrasound-guided needle localization right breast mass. Brim Pouncer: JACE Transcribe Date/Time: Apr 01 2024 10:00A Dictated by : JUVE VILLANUEVA MD This examination was interpreted and the report reviewed and electronically signed by: JUVE VILLANUEVA MD on Apr 01 2024 10:53AM [facility] [id number] Normal [facility] MG Breast - right Diagnostic for implanton 04-01-2024 IMPRESSION: Wire in the right breast shows successful placement. Mammogram BI-RADS: Post-procedure mammogram for marker placement Interpreting Radiologist: Pearl Pina M.D. Electronically signed on: 04/01/2024 Brim Pouncer: DARIAN Transcribe Date/Time: Apr 01 2024 10:42A Dictated by : PEARL PINA MD This examination was interpreted and the report reviewed and electronically signed by: PEARL PINA MD on Apr 01 2024 10:56AM [facility] * * *Final Report* * * DATE OF EXAM: Apr 01 2024 10:52AM [facility] 0626 - [facility] DIAG[facility]STIC RT / PROCEDURE REASON: Malignant neoplasm of upper-outer 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, unspecified e * * * * Physician Interpretation * * * * [address] [place] [address] #[id number] - [facility] DIAG[facility]STIC RT HISTORY: Patient is 73 [...] upper outer quadrant of the right breast. [facility] Provider, [facility] - 04/01/2024 * * *Final Report* * * DATE OF EXAM: Apr 01 2024 10:52AM [facility] 0626 - [facility] DIAGNOSTIC RT / PROCEDURE REASON: Malignant neoplasm of upper-outer 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, unspecified e * * * * Physician Interpretation * * * * [address] [place] [address] #[id number] - [facility] DIAGNOSTIC RT HISTORY: Patient is 73 [...] Pearl Pina M.D. Electronically signed on: 04/01/2024 Brim Pouncer: DARIAN Enriquerimonty Date/Time: Apr 01 2024 10:42A Dictated by : PEARL PINA MD This examination was interpreted and the report reviewed and electronically signed by: PEARL PINA MD on Apr 01 2024 10:56AM [facility] Radiology Study observation (narrative) [facility] MG Breast specimen - right V iewson 04-01-2024 IMPRESSION: SPECIMEN A single image of the lumpectomy specimen demonstrates a wire and a Q biopsy marker in the specimen. COMMUNICATION: Urgent Results: The results of the specimen radiograph were discussed with Dr. Remington Sung in the O.R. On 04/01/2024 at 1330. Interpreting Radiologist: Pearl Pina M.D. Electronically signed on: 04/01/2024 Brim Pouncer: DARIAN Talamantes Date/Time: Apr 01 2024 1:27P Dictated by : PEARL PINA MD This examination was interpreted and the report reviewed and electronically signed by: PEARL PINA MD on Apr 01 2024 1:33PM [facility] * * *Final Report* * * DATE OF EXAM: Apr 01 2024 1:29PM [facility] 0639 - [facility] SURG BREAST SPECIMEN RT / PROCEDURE REASON: Malignant neoplasm of upper-outer 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, unspecified e * * * * Physician Interpretation * * * * [address] [place] [address] #[id number] - [facility] SURG BREAST SPECIMEN RT HISTORY: Right Specimen Radiograph COMPARISON: 01/29/2024 (ultrasound), 01/29/2024 (mammogram), 02/24/2024 (mammogram), 03/17/2024 (ultrasound) and 04/01/2024 (mammogram). FINDINGS: A single image of the lumpectomy specimen demonstrates a wire and a Q biopsy marker in the specimen. Coil marker incidentally noted within the specimen. [facility] Provider, Vishal Yung - 04/01/2024 * * *Final Report* * * DATE OF EXAM: Apr 01 2024 1:29PM [facility] 0639 - [facility] SURG BREAST SPECIMEN RT / PROCEDURE REASON: Malignant neoplasm of upper-outer 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, unspecified e * * * * Physician Interpretation * * * * [facility] [address] [place] [address] #[id number] - [facility] SUR[facility] BREAST SPECIMEN RT HISTORY: Right [...] Pearl Pina M.D. Electronically signed on: 04/01/2024 Brim Pouncer: DARIAN Transcrimonty Date/Time: Apr 01 2024 1:27P Dictated by : PEARL PINA MD This examination was interpreted and the report reviewed and electronically signed by: PEARL PINA MD on Apr 01 2024 1:33PM [facility] Radiology Study observation (narrative) Jorge browning [facility] OPERATIVE NOon 04-01-2024 OPERATIVE NO HNO ID: [id number] Author: REMINGTON SUNG MD Service: General Surgery Author Type: Physician Type: Operative Report Filed: 04/01/2024 13:39 Note Text: April 01, 2024 Love Pino 1950 [id number] Preoperative diagnosis: Right breast cancer Postoperative diagnosis: [...] needle counts were correct. Remington Sung MD [facility] SURGICAL PATHOLOGYon 024 BLOCK FOR ADDITIONAL BIOMARKERS/MOLECULAR STUDIES A4 [facility] Comment on above: Order Comment: Efraín peck Type: TISSUE SPECIMENOrdering Facility: [facility] Address: [address] [place] [address] Performed By: #### S ####[facility] LABORATORYCLIA [id number] [place] [address] [place] CASE REPORT [facility] Comment on above: Order Comment: Efraín peck Type: TISSUE SPECIMENOrdering Facility: [facility] Address: [address] [place], [place] [id number] Result Comment: Surg ica Pathology Report Case: [id number] Authorizing Provider: Remington Sung MD Collected: 04/01/2024 01:19 PM Ordering Location: [facility] Surgery Received: 04/01/2024 02:24 PM Pathologist: Sonam Trinidad MD Specimen: Breast, Right, Lumpectomy, Right breast lumpectomy, short stitch superior, long stitch lateral Performed By: #### S ####[facility] LABORATORYCLIA [id number] [address] CLINICAL HISTORY Normal [facility] Comment on above: Order Comment: Efraín peck Type: TISSUE SPECIMENOrdering Facility: [facility] Address: [address] [place] [address] Result Comment: Pre- op diagnosis: Malignant neoplasm of upper-outer 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, unspecified estrogen receptor status (HCC) [C50.411] Performed By: #### S ####[facility] LABORATORYCLIA [id number] [address] DIAGNOSIS COMMENT Normal [facility] Comment on above: Order Comment: Efraín peck Type: TISSUE SPECIMENOrdering Facility: [facility] Address: [address] [place] [address] Result Comment: The smaller focus of invasive [...] grade of the second nodule, prognostic markers (ER/NH and HER2/garry) were not performed on the smaller mass. If clinically indicated, these markers can be performed and reported separately. Clinical correlation is recommended. Performed By: #### S ####[facility] LABORATORYCLIA [id number] [address] FINAL DIAGNOSIS [facility] Comment on above: Order Comment: Efraín peck Type: TISSUE SPECIMENOrdering Facility: [facility] Address: [address] [place] [address] Result Comment: A. R ight breast, lumpectomy [...] - See comment. Performed By: #### S ####[facility] LABORATORYCLIA [id number] [address] FINAL PERFORMING LAB Normal [facility] Comment on above: Order Comment: Specvitor peck Type: TISSUE SPECIMENOrdering Facility: [facility] Address: [address] [place] [address] Result Comment: Diag nostic interpretation performed at [facility], [facility] [place] [address] CLIA# [id number] Security Ambassador: Sonam Trinidad M.D. Performed By: #### S ####[facility] LABORATORYCLIA [id number] [address] GROSS DESCRIPTION Normal [facility] Comment on above: Order Comment: Efraín peck Type: TISSUE SPECIMENOrdering Facility: [facility] Address: [address] [place] [address] Result Comment: A. B reast, Right, Lumpectomy Received in formalin in a [...] anterior posterior, and 0.8 cm superior-inferior) is hrajx-bmq-hplgmy, moderate to well-defined and firm. It is [...] The specimen is reviewed with Dr. Trinidad. Tempering Oven Operator sections to include entire nodules are submitted from medial to lateral as follows: A1. Tempering Oven Operator slice 1, perpendicular, with inferior and medial margins A2. Tempering Oven Operator slice 3, with anterior, superior, and medial margins A3. Tempering Oven Operator slice 4, nodule #1 with superior, inferior, and posterior margins A4. Tempering Oven Operator slice 5, nodule #1 with superior, inferior, and posterior margins (Q/twirl clip slice) A5-6. Tempering Oven Operator slice 6 (possible coil clip site) A5- nodule #1 with superior, inferior, and posterior margins A6- nodule #1 with superior, inferior, and nearest anterior margins A7. Tempering Oven Operator slice 7, tissue lateral to nodule #1, with superior and inferior margins A8. Tempering Oven Operator slice 12, tissue medial to nodule #2 with superior, inferior and anterior margins A9. Tempering Oven Operator slice 13, nodule #2 to superior, inferior, and lateral margins, and nearest posterior margin A10. Tempering Oven Operator slice 14, nodule #2 to superior, inferior, and lateral margin A11-12. Tempering Oven Operator slice 15, perpendicular, remainder of nodule #2 to lateral and portion of inferior margins CG April 02, 2024 11:16 AM Gross examination performed at [facility] [address] [place] [address] CLIA#[id number] Performed By: #### S ####[facility] LABORATORYCLIA [id number] [address] [place] MICROSCOPIC DESCRIPTION Normal [facility] Comment on above: Order Comment: Speci men Type: TISSUE SPECIMENOrdering Facility: [facility] Address: [address] [place] [address] Result Comment: Twel ve H&E stained slides are examined. Intradepartmental consultation with Dr. Savage Pinto who concurs with the above findings. Performed By: #### S ####[facility] LABORATORYCLIA [id number] [address] [place] SYNOPTIC REPORT Normal [facility] Comment on above: Order Comment: Speci men Type: TISSUE SPECIMENOrdering Facility: [facility] Address: [address] [place] [address] Result Comment: INVA SIVE CARCINOMA OF THE BREAST: Resection INVASIVE CARCINOMA OF THE BREAST: RESECTION - All Specimens 8th Edition - Protocol posted: 10/16/2023 SPECIMEN Procedure: Lumpectomy with needle localization Specimen Laterality: Right TUMOR Tumor Site: Upper outer quadrant Histologic Type: Invasive lobular carcinoma Histologic Grade (Lenin Histologic Score): Glandular (Acinar) / Tubular Differentiation: [...] (Score 0) Testing Performed on Case Number: [id number] Performed By: #### S ####[facility] LABORATORYCLIA [id number] [place] [id number] [place] Guidance for localization of Breast - righton 04-01-2024 IMPRESSION: Uncomplicated ultrasound-guided needle localization right breast mass. Brim Pouncer: JACE Transcribe Date/Time: Apr 01 2024 10:00A Dictated by : JUVE VILLANUEVA MD This examination was interpreted and the report reviewed and electronically signed by: JUVE VILLANUEVA MD on Apr 01 2024 10:53AM [facility] * * *Final Report* * * DATE OF EXAM: Apr 01 2024 9:59AM [facility] 0600 - [facility] US LOC BREAST RT / PROCEDURE REASON: Malignant neoplasm of upper-outer 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, unspecified e * * * * Physician Interpretation * * * * [facility] US LOC BREAST RT Ordering Physician: [...] of informed consent can be found in [facility] under the consent tab. Prior to [...] the procedure well without immediate apparent complication [facility] Provider, Vishal Khoury [facility] - 04/01/2024 * * *Final Report* * * DATE OF EXAM: Apr 01 2024 9:59AM [facility] 0600 - [facility] US LOC BREAST RT / PROCEDURE REASON: Malignant neoplasm of upper-outer 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, unspecified e * * * * Physician Interpretation * * * * [facility] US LOC BREAST RT Ordering Physician: [...] of informed consent can be found in [facility] under the consent tab. Prior to [...] Uncomplicated ultrasound-guided needle localization right breast mass. Brim Pouncer: JACE Transcribe Date/Time: Apr 01 2024 10:00A Dictated by : JUVE VILLANUEVA MD This examination was interpreted and the report reviewed and electronically signed by: JUVE VILLANUEVA MD on Apr 01 2024 10:53AM EST [facility] Radiology Study observation (narrative) [facility] US Guidance for localization of Breast - rightOrdered By: Ccf Provider on 04-01-2024 [facility] ANES PREOPon 03-30-2024 ANES PREOP HNO ID: [id number] Author: DAVID JOHNSON APRN.HYDRO TECHNICIAN Service: ? 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 She formally had breast cancer in her left breast and had surgery with Dr Sung. She was also on arimidex x 5 years and received radiation to the right breast. She is very well versed in these areas. Electronically Signed By: Giana Velasco RN In Department: [facility] BREAST SURGERY Allergies As of [...] 1 capsule by mouth once daily. - Etzkzmpk-Bxsbphb-Rthc-L utein tab Take 1 tablet by mouth [...] Encounter Status:Closed by GIANA VELASCO on 03/23/24 [facility] LOVE PINO ([id number]) 1950 F TXT Date Time Provider Department [...] scheduled in est.complex slot on 04/16 Zayda Loly Mccauley LPN 04/07/2024 1:15 PM Signed ----- Message [...] by mouth once daily. LD 03/24 - Lhenugvz-Rmvvaov-Ixwx-L utein tab Take 1 tablet by mouth [...] Encounter Status:Closed by LOLY MCKEON on 04/07/24 [facility] GENETIC SENDOUTon 03-19-2024 Genetic Test Name CancerNext-Expanded Panel with RNA Invalid Interpretation Code [facility] Comment on above: Order Comment: Name of Test:->CancerNext-Expanded Panel with RNA Billing type:->Direct Specimen Type->Blood Specimen requirements:->3-5 ml EDTA and PAX tubes Specimen Tube->EDTA and PAX What is the sendout facility name, if known?->[facility] Reference [facility] Invalid Interpretation Code [facility] Comment on above: Order Comment: Name of Test:->CancerNext-Expanded Panel with RNA Billing type:->Direct Specimen Type->Blood Specimen requirements:->3-5 ml EDTA and PAX tubes Specimen Tube->EDTA and PAX What is the sendout facility name, if known?->[facility] Miscellaneous Results Patient results sc anned into [facility] Invalid Interpretation Code [facility] Comment on above: Order Comment: Name of Test:->CancerNext-Expanded Panel with RNA Billing type:->Direct Specimen Type->Blood Specimen requirements:->3-5 ml EDTA and PAX tubes Specimen Tube->EDTA and PAX What is the sendout facility name, if known?->[facility]annan Webb 03-18-2024 CNPN Telephone ([facility]) LOVE PINO ([id number]) 1950 F TXT Date Time Provider Department 03/18/24 LOLY MCKEON [facility] During your visit today, we recorded the [...] 1 capsule by mouth once daily. - Xaiefucu-Ggsucou-Psqo-L utein tab Take 1 tablet by mouth [...] Encounter Status:Closed by LOLY MCKEON on 03/18/24 [facility] CBC W Auto Differential pane l (Bld)on 03-17-2024 Basophils (Bld) [#/Vol] 0.04 10*3/uL Normal <0.11 [facility] Comment on above: Order Comment: Speci men Type: BLOOD SPECIMEN [facility] Address: [address] [place] [address] Performed By: #### 5 7021-8 #### [facility] CLIA [id number] [address] [place] [address] [place] Basophils/100 WBC (Bld) 0.7 % Normal [facility] Comment on above: Order Comment: Speci men Type: BLOOD SPECIMEN [facility] Facility: [facility] Address: [address] [place] [address] Performed By: #### 5 7021-8 #### [facility] CLIA [id number] [address] [place] [address] [place] Differential cell count method Nom (Bld) Auto Normal [facility] Comment on above: Order Comment: Speci men Type: BLOOD SPECIMEN [facility] Address: [address] [place] [address] Performed By: #### 5 7021-8 #### [facility] CLIA [id number] [address] [place] [address] [place] Eosinophils (Bld) [#/Vol] 0.14 10*3/uL Normal <0.46 [facility] Comment on above: Order Comment: Speci men Type: BLOOD SPECIMEN [facility] Address: [address] [place] [address] Performed By: #### 5 7021-8 #### [facility] CLIA [id number] [address] [place] [address] [place] Eosinophils/100 WBC (Bld) 2.4 % Normal [facility] Comment on above: Order Comment: Speci men Type: BLOOD SPECIMEN [facility] Address: [address] [place] [address] Performed By: #### 5 7021-8 #### [facility] CLIA [id number] [address] [place] [address] [place] Erythrocyte distribution width (RBC) [Ratio] 12.8 % Normal 11.5-15.0 [facility] Comment on above: Order Comment: Speci men Type: BLOOD SPECIMEN [facility] Address: [address] [place] [address] Performed By: #### 5 7021-8 #### [facility] CLIA [id number] [address] [place] [address] [place] Hematocrit (Bld) [Volume fraction] 43.6 % Normal 36.0-46.0 [facility] Comment on above: Order Comment: Speci men Type: BLOOD SPECIMEN [facility] Address: [address] [place] [address] Performed By: #### 5 7021-8 #### [facility] CLIA [id number] [address] [place] [address] [place] Hemoglobin (Bld) [Mass/Vol] 13.8 g/dL Normal 11.5-15.5 [facility] Comment on above: Order Comment: Speci men Type: BLOOD SPECIMEN [facility] Address: [address] [place] [address] Performed By: #### 5 7021-8 #### [facility] CLIA [id number] [address] [place] [address] [place] Immature granulocytes (Bld) [#/Vol] 10*3/uL Normal <0.10 [facility] Comment on above: Order Comment: Speci men Type: BLOOD SPECIMEN [facility] Address: [address] [place] [address] Performed By: #### 5 7021-8 #### [facility] CLIA [id number] [address] [place] [address] [place] Immature granulocytes/100 WBC (Bld) 0.2 % Normal [facility] Comment on above: Order Comment: Speci men Type: BLOOD SPECIMEN [facility] Address: [address] [place] [address] Performed By: #### 5 7021-8 #### [facility] CLIA [id number] [address] [place] [address] [place] Lymphocytes (Bld) [#/Vol] 2.36 10*3/uL Normal 1.00-4.00 [facility] Comment on above: Order Comment: Speci men Type: BLOOD SPECIMEN [facility] Address: [address] [place] [address] Performed By: #### 5 7021-8 #### [facility] CLIA [id number] [address] [place] [address] [place] Lymphocytes/100 WBC (Bld) 39.9 % Normal [facility] Comment on above: Order Comment: Speci men Type: BLOOD SPECIMEN [facility] Address: [address] [place] [address] Performed By: #### 5 7021-8 #### [facility] CLIA [id number] [address] [place] [address] [place] MCH (RBC) [Entitic mass] 28.9 pg Normal 26.0-34.0 [facility] Comment on above: Order Comment: Speci men Type: BLOOD SPECIMEN [facility]: [facility] Address: [address] [place] [address] Performed By: #### 5 7021-8 #### [facility] CLIA [id number] [address] [place] [address] [place] MCHC (RBC) [Mass/Vol] 31.7 g/dL Normal 30.5-36.0 [facility] Comment on above: Order Comment: Speci men Type: BLOOD SPECIMEN [facility] Address: [address] [place] [address] Performed By: #### 5 7021-8 #### [facility] CLIA [id number] [address] [place] [address] [place] MCV (RBC) [Entitic vol] 91.4 fL Normal 80.0-100.0 M [facility] Comment on above: Order Comment: Speci men Type: BLOOD SPECIMEN [facility] Address: [address] [place] [address] Performed By: #### 5 7021-8 #### [facility] CLIA [id number] [address] [place] [address] [place] Monocytes (Bld) [#/Vol] 0.74 10*3/uL Normal <0.87 [facility] Comment on above: Order Comment: Speci men Type: BLOOD SPECIMEN [facility] Address: [address] [place] [address] Performed By: #### 5 7021-8 #### [facility] CLIA [id number] [address] [place] [address] [place] Monocytes/100 WBC (Bld) 12.5 % Normal [facility] Comment on above: Order Comment: Speci men Type: BLOOD SPECIMEN [facility] Address: [address] [place] [address] Performed By: #### 5 7021-8 #### [facility] CLIA [id number] [address] [place] [address] [place] Neutrophils (Bld) [#/Vol] 2.63 10*3/uL Normal 1.45-7.50 [facility] Comment on above: Order Comment: Speci men Type: BLOOD SPECIMEN [facility] Address: [address] [place] [address] Performed By: #### 5 7021-8 #### [facility] CLIA [id number] [address] [place] [address] [place] OF [place] Neutrophils/100 WBC (Bld) 44.3 % Normal [facility] Comment on above: Order Comment: Speci men Type: BLOOD SPECIMEN Ordering Facility: [facility] Address: [address] [place] [address] Performed By: #### 5 7021-8 #### [facility] CLIA [id number] [address] [place] [address] [place] Nucleated RBC (Bld) [#/Vol] 10*3/uL Normal <0.01 [facility] Comment on above: Order Comment: Speci men Type: BLOOD SPECIMEN Ordering Facility: [facility] Address: [address] [id number] Performed By: #### 5 7021-8 #### [facility] CLIA [id number] [address] [place] [address] [place] Nucleated RBC/100 WBC (Bld) [Ratio] 0.0 /[address] [facility] Comment on above: Order Comment: Speci men Type: BLOOD SPECIMEN Ordering Facility: [facility] Address: [address] [place] [address] Performed By: #### 5 7021-8 #### [facility] CLIA [id number] [address] [place] [address] [place] Platelet mean volume (Bld) [Entitic vol] 9.0 fL Normal 9.0-12.7 [facility] Comment on above: Order Comment: Speci men Type: BLOOD SPECIMEN Ordering Facility: [facility] Address: [address] [place] [address] Performed By: #### 5 7021-8 #### [facility] CLIA [id number] [address] [place] [address] [place] Platelets (Bld) [#/Vol] 338 10*3/uL Normal 150-400 [facility] Comment on above: Order Comment: Speci men Type: BLOOD SPECIMEN Ordering Facility: [facility] Address: [address] [place] [address] Performed By: #### 5 7021-8 #### [facility] CLIA [id number] [address] [place] [address] [place] RBC (Bld) [#/Vol] 4.77 10*6/uL Normal 3.90-5.20 [facility] Comment on above: Order Comment: Speci men Type: BLOOD SPECIMEN Ordering Facility: [facility] Address: [address] [place] [address] Performed By: #### 5 7021-8 #### [facility] CLIA [id number] [address] [place] [address] [place] WBC (Bld) [#/Vol] 5.92 10*3/uL Normal 3.70-11.00 [facility] Comment on above: Order Comment: Speci men Type: BLOOD SPECIMEN Ordering Facility: [facility] Address: [address] [place] [address] Performed By: #### 5 7021-8 #### [facility] CLIA [id number] [address] [place] [address] Comprehensive metabolic 2000 panelon 03-17-2024 Albumin [Mass/Vol] 3.6 g/dL Normal 3.2-5.0 [facility] Comment on above: Order Comment: Speci men Type: BLOOD SPECIMEN Ordering Facility: [facility] Address: [address] [place] [address] Performed By: #### 2 4323-8 #### [facility] CLIA [id number] [address] [place] [address] STATES OF [facility] ALP [Catalytic activity/Vol] 97 U/L Normal 45-117 [facility] Comment on above: Order Comment: Speci men Type: BLOOD SPECIMEN Ordering Facility: [facility] Address: [address] [place] [address] Performed By: #### 2 4323-8 #### [facility] CLIA [id number] [address] [place] [address] [place] ALT [Catalytic activity/Vol] 21 U/L Normal 13-61 [facility] Comment on above: Order Comment: Speci men Type: BLOOD SPECIMEN Ordering Facility: [facility] Address: [address] [place] [address] Result Comment: Resu lts may be falsely depressed after the administration of Sulfasalazine and/or Sulfapyridine. Performed By: #### 2 4323-8 #### [facility] CLIA [id number] [address] [place] [address] STATES [facility] Anion gap [Moles/Vol] 5 mmol/L Normal 5-16 [facility] Comment on above: Order Comment: Speci men Type: BLOOD SPECIMEN Ordering Facility: [facility] Address: [address] [place] [address] Performed By: #### 2 4323-8 #### [facility] CLIA [id number] [address] [place] [address] [place] AST [Catalytic activity/Vol] 21 U/L Normal 8-34 [facility] Comment on above: Order Comment: Speci men Type: BLOOD SPECIMEN Ordering Facility: [facility] Address: [address] [place] [address] Result Comment: Resu lts may be falsely depressed after the administration of Sulfasalazine and/or Sulfapyridine. Performed By: #### 2 4323-8 #### [facility] CLIA [id number] [address] [place] [address] [place] Bilirubin [Mass/Vol] 0.2 mg/dL Normal 0.2-1.0 [facility] Comment on above: Order Comment: Speci men Type: BLOOD SPECIMEN Ordering Facility: [facility] Address: [address] [place] [address] Performed By: #### 2 4323-8 #### [facility] CLIA [id number] [address] [place] [address] [place] Calcium [Mass/Vol] 9.9 mg/dL Normal 8.5-10.5 [facility] Comment on above: Order Comment: Speci men Type: BLOOD SPECIMEN Ordering Facility: [facility] Address: [address] [place] [address] Performed By: #### 2 4323-8 #### [facility] CLIA [id number] [address] [place] [address] [place] Chloride [Moles/Vol] 107 mmol/L Normal 98-107 [facility] Comment on above: Order Comment: Speci men Type: BLOOD SPECIMEN Ordering Facility: [facility] Address: [address] [place] [address] Performed By: #### 2 4323-8 #### [facility] CLIA [id number] [address] [place] [address] [place] CO2 [Moles/Vol] 30 mmol/L Normal 21-32 [facility] Comment on above: Order Comment: Speci men Type: BLOOD SPECIMEN Ordering Facility: [facility] Address: [address] [place] [address] Performed By: #### 2 4323-8 #### [facility] CLIA [id number] [address] [place] [address] [place] Creatinine [Mass/Vol] 0.64 mg/dL Normal 0.51-0.95 [facility] Comment on above: Order Comment: Speci men Type: BLOOD SPECIMEN Ordering Facility: [facility] Address: [address] [place] [address] Result Comment: Alessandra ents receiving either N-Acetylcysteine (NAC) or Metamizole prior to venipuncture, may have falsely depressed results. Performed By: #### 2 4323-8 #### [facility] CLIA [id number] [address] [place] [address] [place] Creatinine and Glomerular filtration rate.predicted panel (S/P/Bld) 95 mL/min/1.73m??? Normal >=60 [facility] Comment on above: Order Comment: Speci men Type: BLOOD SPECIMEN Ordering Facility: [facility] Address: [address] [place] [address] Result Comment: Dorota mated Glomerular Filtration Rate [...] GFR. Performed By: #### 2 4323-8 #### [facility] CLIA [id number] [address] [place] [address] [place] Glucose [Mass/Vol] 87 mg/dL Normal 70-100 [facility] Comment on above: Order Comment: Speci men Type: BLOOD SPECIMEN Ordering Facility: [facility] Address: [address] [place] [address] Result Comment: The [place] Diabetes Association (ADA) provides guidance for cutoff [...] Standards of Medical Care in Diabetes 2016, [place] [employer]. Diabetes Care. 2016.39(Suppl 1). Results may be falsely elevated after the administration of Sulfapyridine. Results may be falsely depressed after the administration of Sulfasalazine. Performed By: #### 2 4323-8 #### [facility] CLIA [id number] [address] [place] [address] [place] Potassium [Moles/Vol] 3.9 mmol/L Normal 3.5-5.1 [facility] Comment on above: Order Comment: Efraín peck Type: BLOOD SPECIMEN Ordering Facility: [facility] Address: [address] [place] [address] Performed By: #### 2 4323-8 #### [facility] CLIA [id number] [address] [place] [address] [place] Protein [Mass/Vol] 6.9 g/dL Normal 6.0-8.5 [facility] Comment on above: Order Comment: Efraín peck Type: BLOOD SPECIMEN Ordering Facility: [facility] Address: [address] [place], [place] [address] Performed By: #### 2 4323-8 #### [facility] CLIA [id number] [address] [place] [address] [place] Sodium [Moles/Vol] 142 mmol/L Normal 136-145 [facility] Comment on above: Order Comment: Speci men Type: BLOOD SPECIMEN Ordering Facility: [facility] Address: [address] [place] [address] Performed By: #### 2 4323-8 #### [facility] CLIA [id number] [address] [place] [address] [place] Urea nitrogen [Mass/Vol] 16 mg/dL Normal 7- [facility] Comment on above: Order Comment: Speci men Type: BLOOD SPECIMEN Ordering Facility: [facility] Address: [address] [place], [place] [address] Performed By: #### 2 4323-8 #### [facility] CLIA [id number] [address] [place], [place] [address] [place] EKGon 03-17-2024 Atrial Rate 76 BPM [facility] Calculated P [place] 49 degrees [facility] Calculated R [place] 0 degrees [facility] Calculated T [place] 4 degrees [facility] P-R Interval [address] [facility] QRS Duration 66 ms [facility] QT Interval 344 ms [facility] QTC Calculation (Bazett) [address] [facility] Ventricular Rate 76 BPM [facility] NAME : KELLEY PINO PID : [id number] : 1950 Gender : Female Race : ORD : Procedure Date : Mar 17 2024 14:29:45 Edit Date : Mar 17 2024 21:57:56 Diagnosis: Normal sinus rhythm Inferior infarct , age undetermined Poor anterior R-wave progression Abnormal ECG Compared to prior tracing Inferior infarct is now present Confirmed by HARINI GARCÍA MD ([id number]) on 03/17/2024 9:57:52 PM Test Reason : rt Location : 18 : [facility] Overread By : HARINI GARCÍA MD Edited By : HARINI GARCÍA MD Referred By : , Acquired by : TRACY DUARTE [facility] Electrocardiogram Ventricular Rate : 7 6 BPM Atrial Rate : 76 BPM P-R Interval : 196 ms QRS Duration : 66 ms Q-T Interval : 344 ms QTC Calculation(Bazett) : 387 ms Calculated P [place] : 49 degrees Calculated R [place] : 0 degrees Calculated T [place] : 4 degrees Normal sinus rhythm Inferior infarct , age undetermined Poor anterior R-wave progression Abnormal ECG Compared to prior tracing Inferior infarct is now present Confirmed by HARINI GARCÍA MD ([id number]) on 03/17/2024 9:57:52 PM NAME : LOVE PINO PID : [id number] : 1950 Gender : Female Race : ORD : Procedure Date : Mar 17 2024 14:29:45 Edit Date : Mar 17 2024 21:57:56 Diagnosis: Normal sinus rhythm Inferior infarct , age undetermined Poor anterior R-wave progression Abnormal ECG Compared to prior tracing Inferior infarct is now present Confirmed by HARINI GARCÍA MD ([id number]) on 03/17/2024 9:57:52 PM Test Reason : rt Location : 18 : CD Overread By : HARINI GARCÍA MD Edited By : HARINI GARCÍA MD Referred By : , Acquired by : TRACY DUARTE [facility] LDH SerPl-cCncon 03-17-2024 LDH [Catalytic activity/Vol] 171 U/L Normal 84-246 [facility] Comment on above: Order Comment: Speci men Type: BLOOD SPECIMEN Ordering Facility: [facility] Address: [address] [place] [address] Performed By: #### 2 532-0 #### [facility] CLIA [id number] [address], [place] [address] [place] [address] OF [facility] ONLY RTon 02-27 [facility] [place] ONLY RT * * *Final Report* * * DATE OF EXAM: Mar 17 2024 1:55PM [facility] 0[facility] - [facility] [place] ONLY RT / PROCEDURE REASON: multiple diagnoses * * * * Physician Interpretation * * * * [address] [place] [address] HISTORY: Patient is 73 years old and [...] Cassy Chowdhury M.D. Electronically signed on: 03/17/2024 Brim Pouncer: DARIAN Transcribe Date/Time: Mar 17 2024 1:37P Dictated by : CASSY CHOWDHURY MD This examination was interpreted and the report reviewed and electronically signed by: CASSY CHOWDHURY MD on Mar 17 2024 3:27PM EST [id number] Normal [facility] [place] - righton 03-17-20 24 * * *Final Report* * * DATE OF EXAM: Mar 17 2024 1:55PM [facility] 0592 - [facility] [place] ONLY RT / PROCEDURE REASON: multiple diagnoses * * * * Physician Interpretation * * * * [facility] [address] [place] [facility] [place] [address] HISTORY: Patient is 73 years old and [...] Cassy Chowdhury M.D. Electronically signed on: 03/17/2024 Brim Pouncer: DARIAN Transcrimonty Date/Time: Mar 17 2024 1:37P Dictated by : CASSY CHOWDHURY MD This examination was interpreted and the report reviewed and electronically signed by: CASSY CHOWDHURY MD on Mar 17 2024 3:27PM [facility] RADIOLOG[facility] Provider, [facility] - 03/17/2024 * * *Final Report* * * DATE OF EXAM: Mar 17 2024 1:55PM [facility] 0592 - [facility] [place] ONLY RT / PROCEDURE REASON: multiple diagnoses * * * * Physician Interpretation * * * * [facility] [address] [place] [address] HISTORY: Patient is 73 years old and [...] Cassy Chowdhury M.D. Electronically signed on: 03/17/2024 Brim Pouncer: DARIAN Transcribe Date/Time: Mar 17 2024 1:37P Dictated by : CASSY CHOWDHURY MD This examination was interpreted and the report reviewed and electronically signed by: CASSY CHOWDHURY MD on Mar 17 2024 3:27PM [facility] Radiology Study observation (narrative) [facility] [place] - rightOrdered By: Ccf Provider on 03-17-2024 [facility] XR CHEST 2V FRONTAL/LATon XR CHEST 2V FRONTAL/LAT * * *Final Repor t* * * DATE OF EXAM: Mar 17 [...] left axillary region. IMPRESSION: No acute abnormalities. Brim Pouncer: JAEC Transcribe Date/Time: Mar 19 2024 12:03P Dictated by : YOSEPH VELÁSQUEZ MD This examination was interpreted and the report reviewed and electronically signed by: YOSEPH VELÁSQUEZ MD on Mar 19 2024 12:04PM EST [id number] [facility] 03-15-2024 CNPN Telephone (HEMAWS) LOVE PINO ([id number]) 1950 F TXT Date Time Provider Department 03/15/24 IBRAHIMA DHALIWAL During your visit today, we recorded the following information about you: Ibrahima Dhaliwal DO 03/15/2024 10:54 AM Signed Her surgical pathology was copied to me by Dr. Meeks. New small right-sided breast cancer. Breast cancer. She saw a surgeon at [facility] who ordered an ultrasound of the right [...] Breast cancer. She saw a surgeon at [facility] who ordered an ultrasound of the right axilla which is scheduled for Saturday. Surgical plan will follow results of that. Needs to see Dr. Dhaliwal as est complex in about 6-8 weeks. Pt. Voiced understanding and will contact office to schedule that appt. After she is aware of her surgical plan. MALIKA Mcginnis, Adilia 03/18/2024 11:44 AM Signed Surgery is scheduled [...] 1 capsule by mouth once daily. - Rwquodxh-Gjaibzi-Wbdx-L utein tab Take 1 tablet by mouth [...] Encounter Status:Closed by IRLANDA RAMIREZ on 03/16/24 [facility]20[facility] LOVE [facility] ([id number]) 1950 F TXT Date Time Provider Department 03/10/24 LOLY MCKEON [facility] During your visit today, we recorded the following information about you: Loly Mckeon LPN 03/10/2024 8:24 AM Signed Faxed all info To [facility] to set up appointment for patient [...] 1 capsule by mouth once daily. - Imsbkmws-Qfmwliq-Ttpz-L utein tab Take 1 tablet by mouth [...] Encounter Status:Closed by LOLY MCKEON on 03/10/24 [facility] CNOVon 03-09-2024 CNOV Office Visit (BRSTMM ) LOVE PINO ([id number]) 1950 F TXT Date Time Provider Department 03/09/24 1:00 PM REMINGTON SUNG [facility] During your visit today, we recorded the following information about you: Pulse Respiration Blood pressure Weight 89/minute 14/minute 124/80 86.6 kg Remington Sung MD 03/09/2024 2:57 PM Signed March 09, 2024 Love Pino 1950 [id number] ELEM: This is a 73-year-old female that I [...] The patient came in today with her cfrtzwky-ny-jxr to discuss her treatment options for this new cancer. I did review her recent mammogram images with the patient and her zkpyzmub-xr-qjt. I also made them a copy of [...] Take 1 capsule by mouth once daily. Rvgoeyaa-Bqrmxkv-Ttsi-L utein tab Take 1 tablet by mouth once daily. No current facility-administered medications for this visit. ALLERGIES Penicillin and Sulfa (Sulfonamide Antibiotics) REVIEW OF SYSTEMS: GENERAL: No fever/chills. No unusual weight change. EYES: No blurring or diplopia. No drainage. No unusual vision loss. Wears corrective lenses. E (more content not included)... Normal [facility] HISTORY PHYSICALon HISTORY PHYSICAL HNO ID: [id number] Author: REMINGTON SUNG MD Service: ? Author Type: Physician Type: H&P Filed: 03/09/2024 14:57 Note Text: March 09, 2024 Love Duarte Odette 1950 [id number] ELEM: This is a 73-year-old female that I [...] The patient came in today with her ioycxalq-vh-ocr to discuss her treatment options for this new cancer. I did review her recent mammogram images with the patient and her mwfivljg-yt-fqd. I also made them a copy of [...] Take 1 capsule by mouth once daily. Pcfpmxnb-Ecgwrgb-Cgfg-L utein tab Take 1 tablet by mouth [...] the p (more content not included)... Normal [facility]20[facility] LOVE PINO ([id number]) 1950 F TXT Date Time Provider Department 02/26/24 AZRA MEEKS During your visit today, we recorded the following information about you: Azra Meeks MD 02/26/2024 4:20 PM Signed Told patient that pathology reveals Invasive lobular carcinoma, provisional grade 2 She wishes to be referred to Dr. Remington Sung at [facility] for surgical treatment. I will place a [...] 1 capsule by mouth once daily. - Ymnichsw-Jhpggcd-Uvic-L utein tab Take 1 tablet by mouth [...] Status:Closed by AZRA MEEKS on 02/26/24 Normal [facility] BREAST MARKERSon 02-24-2024 BREAST TUMOR GRADE Grade 2 Normal [facility] Comment on above: Order Comment: Speci men Type: TISSUE SPECIMEN Ordering Facility: [facility] Address: [address] [place] [address] Performed By: #### L [id number] #### [facility] CLIA [id number] [address] STATES OF [facility] NUMBER INVASIVE [id number] Normal [facility] Comment on above: Order Comment: Speci men Type: TISSUE SPECIMEN Ordering Facility: [facility] Address: [address] [place] [address] Performed By: #### L [id number] #### [facility] CLIA [id number] [address] ESTROGEN RECEPTOR (% TUMOR STAINING) 90 Normal [facility] Comment on above: Order Comment: Speci men Type: TISSUE SPECIMEN Ordering Facility: [facility] Address: [address] [place] [address] Performed By: #### L [id number] #### [facility] CLIA [id number] [address] [place] OF [place] ESTROGEN RECEPTOR (STAINING INTENSITY) Strong Normal [facility] Comment on above: Order Comment: Speci men Type: TISSUE SPECIMEN Ordering Facility: [facility] Address: [address] [place] [address] Performed By: #### L [id number] #### [facility] CLIA [id number] [address] ESTROGEN RECEPTOR EXTERNAL CONTROL Present and Stained as Expected Normal [facility] Comment on above: Order Comment: Speci men Type: TISSUE SPECIMEN Ordering Facility: [facility] Address: [address] [place] [address] Performed By: #### L [id number] #### [facility] CLIA [id number] [address] ESTROGEN RECEPTOR INTERNAL CONTROL Present and Stained as Expected Normal [facility] Comment on above: Order Comment: Speci men Type: TISSUE SPECIMEN Ordering Facility: [facility] Address: [address] [place] [address] Performed By: #### L [id number] #### [facility] CLIA [id number] [address] ESTROGEN RECEPTOR STATUS (INVASIVE) Positive Normal [facility] Comment on above: Order Comment: Speci men Type: TISSUE SPECIMEN Ordering Facility: [facility] Address: [address] [place] [address] Performed By: #### L [id number] #### [facility] CLIA [id number] [address] HER2 SCORE See Separate Report [facility] Comment on above: Order Comment: Speci men Type: TISSUE SPECIMEN Ordering Facility: [facility] Address: [address] [place] [address] Performed By: #### L [id number] #### [facility] CLIA [id number] [address] HER2 STATUS (INVASIVE) See Separate Report [facility] Comment on above: Order Comment: Speci men Type: TISSUE SPECIMEN Ordering Facility: [facility] Address: [address] [place] [address] Performed By: #### L [id number] #### [facility] CLIA [id number] [address] PROGESTERONE RECEPTOR (% TUMOR STAINING) 95 Normal [facility] Comment on above: Order Comment: Speci men Type: TISSUE SPECIMEN Ordering Facility: [facility] Address: [address] [place] [address] Performed By: #### L [id number] #### [facility] CLIA [id number] [address] [place] PROGESTERONE RECEPTOR (STAINING INTENSITY) Strong Normal [facility] Comment on above: Order Comment: Speci men Type: TISSUE SPECIMEN Ordering Facility: [facility] Address: [address] [place] [address] Performed By: #### L [id number] #### [facility] CLIA [id number] [address] PROGESTERONE RECEPTOR EXTERNAL CONTROL Present and Stained as Expected Normal [facility] Comment on above: Order Comment: Speci men Type: TISSUE SPECIMEN Ordering Facility: [facility] Address: [address] [place] [address] Performed By: #### L [id number] #### [facility] CLIA [id number] [address] PROGESTERONE RECEPTOR INTERNAL CONTROL Present and Stained as Expected Normal [facility] Comment on above: Order Comment: Speci men Type: TISSUE SPECIMEN Ordering Facility: [facility] Address: [address] [place] [address] Performed By: #### L [id number] #### [facility] LABORATORY CLIA [id number] [address] PROGESTERONE RECEPTOR STATUS (INVASIVE) Positive Normal [facility] Comment on above: Order Comment: Speci men Type: TISSUE SPECIMEN Ordering Facility: [facility] Address: [address] [place] [address] Performed By: #### L [id number] #### [facility] CLIA [id number] [address] OF [place] TUMOR TYPE (INVASIVE) Primary Invasive B reast Carcinoma Normal [facility] Comment on above: Order Comment: Speci men Type: TISSUE SPECIMEN Ordering Facility: [facility] Address: [address] [place] [address] Performed By: #### L [id number] #### [facility] CLIA [id number] [address] [place] DBT Breast - right diagnosti c for implanton 02-24-2024 IMPRESSION: ULTRASOU ND GUIDED BIOPSY Site 1: Successful ultrasound guided biopsy of the mass at 11 o'clock, 3 cm from the nipple in the right breast with placement of a Q shaped clip was successful. Waiting for pathology results. A final report will be issued when these become available. Brim Pouncer: DARIAN Transcribe Date/Time: Feb 24 2024 2:28P Dictated by : AN KIM MD This examination was interpreted and the report reviewed and electronically signed by: AN KIM MD on Feb 24 2024 3:08PM EST [facility] * * *Final Report* * * DATE OF EXAM: Feb 24 2024 2:32PM AAW 0629 - [place] DIAG W LOIDA RT / PROCEDURE REASON: multiple diagnoses * * * * Physician Interpretation * * * * [facility] [address] [facility][1]. [place] [address] HISTORY: 73 year old patient presents for [...] demonstrates appropriate positioning on post biopsy mammogram. [facility] Provider, [facility] - 02/24/2024 * * *Final Report* * * DATE OF EXAM: Feb 24 2024 2:32PM AAW 0629 - [place] DIAG W LOIDA RT / PROCEDURE REASON: multiple diagnoses * * * * Physician Interpretation * * * * [facility] [address] [facility][1]. [place] [address] HISTORY: 73 year old patient presents for [...] will be issued when these become available. Brim Pouncer: DARIAN Transcribe Date/Time: Feb 24 2024 2:28P Dictated by : AN KIM MD This examination was interpreted and the report reviewed and electronically signed by: AN KIM MD on Feb 24 2024 3:08PM EST [facility] Radiology Study observation (narrative) [facility] HER2 (4B5) BY IHCon 10-28-20 24 AP BIOMARKER DISCLAIMER Normal A [facility] Comment on above: Order Comment: Speci men Type: TISSUE SPECIMEN Ordering Facility: [facility] Address: [address] [place] [address] [place] [id number] Result Comment: Lori carrasco Developed Test (LDT) Disclaimer: Performance characteristics of immunohistochemical, immunofluorescent and chromogenic in-situ hybridization tests have been determined by the performing laboratory within [facility]???s Onelia Fitzgerald Pathology and Laboratory Medicine Department ([facility], [facility], [facility], [facility], [facility], [facility], or [facility]) in a manner consistent with CLIA requirements. One or more of these tests have not been cleared or approved by the FDA. RT-PLM is regulated under CLIA as qualified to perform high-complexity testing. These tests are used for clinical purposes. They should not be regarded as investigational or for research. Positive and negative controls stain appropriately. Performed By: #### L [id number] #### [facility] CLIA [id number] [address] [place] [address] [place] #### S #### [facility] CLIA [id number] [address] Performed By: #### L [id number] #### [facility] CLIA [id number] [address] AP BLOCK ID A1 [facility] Comment on above: Order Comment: Speci men Type: TISSUE SPECIMEN Ordering Facility: [facility] Address: [address] [place] [address] Performed By: #### L [id number] #### [facility] CLIA [id number] [address] [place] [address] [place] #### S #### [facility] CLIA [id number] [address] [place] [address] Performed By: #### L [id number] #### [facility] CLIA [id number] [address] ASCO/CAP GUIDELINES FOR FIXATION MET Yes [facility] Comment on above: Order Comment: Speci men Type: TISSUE SPECIMEN Ordering Facility: [facility] Address: [address] [place] [address] Performed By: #### L [id number] #### [facility] CLIA [id number] [address] [place] [address] OF [place] #### S #### [facility] CLIA [id number] [address] [place] [address] Performed By: #### L [id number] #### [facility] CLIA [id number] [address] BIOMARKER INTERPRETATION COMMENT AND REFERENCE RANGE [facility] Comment on above: Order Comment: Speci men Type: TISSUE SPECIMEN Ordering Facility: [facility] Address: [address] [place] [address] Result Comment: Refe rence Ranges for HER2 [...] accordance with the guidelines approved by the [place] Society of Clinical Oncologists and the College of [place] Pathologists. Soraida PEREZ et al. Arch Pathol Lab Med. 2018;7309(9) The HER2 assay has not been validated [...] methodology already employed. Performed By: #### L [id number] #### [facility] CLIA [id number] [address] [place] [address] [place] #### S #### [facility] CLIA [id number] [address] [place] Result Comment: Refe rence Range for Hormone Receptors: Staining for NH of greater than or equal to 1% of the tumor cells is considered positive. Staining for ER of 1-10% of the tumor cells is considered low positive. Staining for ER of greater than 10% of the tumor cells is considered positive. Staining for ER or NH of less than 1% is considered negative. [...] to ER-negative cancers. Performed By: #### L [id number] #### [facility] CLIA [id number] [address] [place] [address] BIOMARKER METHOD Normal [facility] Comment on above: Order Comment: Speci men Type: TISSUE SPECIMEN Ordering Facility: [facility] Address: [address] [place] [address] Result Comment: HER2 (ERBB2) by IHC: FDA cleared: [employer], [place], [place] Primary Antibody:4B5 Antibody and Detection System: [place] anti-HER2 rabbit monoclonal antibody (clone 4B5), were detected with the [employer] iView Detection System (indirect biotin streptavidin detection); [place], [place]. Performed By: #### L [id number] #### [facility] CLIA [id number] [address] [place] [address] [place] #### S #### [facility] CLIA [id number] [address] [place] [address] Result Comment: Estr ogen Receptor: Food and Drug Administration (FDA) cleared: [employer], [place], [place] Primary Antibody: 6F11 Progesterone Receptor: Food and Drug Administration (FDA) cleared: [employer], [place], [place] Primary Antibody: 16 The hormone receptor tests were performed and reported in accordance with the guidelines approved by the [place] Society of Clinical Oncologists and the College of [place] Pathologists. Angella YEE, et al. Estrogen and Progesterone Receptor Testing in Breast Cancer: [place] Society of Clinical Oncologists and the College of [place] Pathologists Guideline Update. Arch Pathol Lab Med. 2019;144(5):545-563. PMID: [id number]. Estrogen and progesterone receptor results are valid if tissue was processed according to ASCO/CAP guidelines. Antibody and Detection System: [employer] anti-estrogen receptor monoclonal antibody (clone 6F11) and [employer] anti-progesterone receptor monoclonal antibody (clone 16) detected with the [employer] Polymer Refine (polymer biotin-free detection); [place], [place]. Performed By: #### L [id number] #### [facility] CLIA [id number] [address] [place] [facility] CASE NUMBER HER2 [id number] [facility] Comment on above: Order Comment: Speci men Type: TISSUE SPECIMEN Ordering Facility: [facility] Address: [address] [place] [address] Performed By: #### L [id number] #### [facility] CLIA [id number] [address] [place] [address] [place] #### S #### [facility] CLIA [id number] [address] STATES [facility] COLD ISCHEMIA TIME <1 Hour [facility] Comment on above: Order Comment: Speci men Type: TISSUE SPECIMEN Ordering Facility: [facility] Address: [address] [place] [address] Performed By: #### L [id number] #### [facility] CLIA [id number] [address] [place] [address] [place] #### S #### [facility] CLIA [id number] 1 [place] [address] [place] Performed By: #### L [id number] #### [facility] CLIA [id number] [address] [place] FIXATIVE Formalin, 10% Neutra l Buffered [facility] Comment on above: Order Comment: Speci men Type: TISSUE SPECIMEN Ordering Facility: [facility] Address: [address] [place] [address] Performed By: #### L [id number] #### [facility] CLIA [id number] [address] [place] [address] [place] #### S #### [facility] CLIA [id number] 1 [place] [address] [place] Performed By: #### L [id number] #### [facility] CLIA [id number] [address] [place] HER2 SCORE (OTHER THAN COLON) 0 Normal [facility] Comment on above: Order Comment: Speci men Type: TISSUE SPECIMEN Ordering Facility: [facility] Address: [address] [place] [address] Performed By: #### L [id number] #### [facility] CLIA [id number] [address] [place] [address] [place] #### S #### [facility] CLIA [id number] 1 [place] [address] [place] HER2 STATUS OTHER THAN UNRESECTABLE Negative Normal [facility] Comment on above: Order Comment: Speci men Type: TISSUE SPECIMEN Ordering Facility: [facility] Address: [address] [place] [address] Performed By: #### L [id number] #### [facility] CLIA [id number] [address] [place] [address] [place] #### S #### [facility] CLIA [id number] 1 [place] [address] [place] TOTAL FIXATION TIME >6 and <72 Hours Normal [facility] Comment on above: Order Comment: Speci men Type: TISSUE SPECIMEN Ordering Facility: [facility] Address: [address] [place] [address] Performed By: #### L [id number] #### [facility] CLIA [id number] [address] [place] [address] [place] #### S #### [facility] CLIA [id number] 1 [place] [address] [place] Performed By: #### L [id number] #### [facility] CLIA [id number] 1 [place] [address] [place] TUMOR TYPE HER2 Primary Invasive Myah ast Carcinoma Normal [facility] Comment on above: Order Comment: Speci men Type: TISSUE SPECIMEN Ordering Facility: [facility] Address: [address] [place] [address] Performed By: #### L [id number] #### [facility] CLIA [id number] [facility] [address] [place] #### S #### [facility] CLIA [id number] 1 [place] [address] [place] WAS SPECIMEN DECALCIFIED No Normal [facility] Comment on above: Order Comment: Speci men Type: TISSUE SPECIMEN Ordering Facility: [facility] Address: [address] [place] [address] Performed By: #### L [id number] #### [facility] CLIA [id number] [address] [place] [address] [place] #### S #### [facility] CLIA [id number] [address] [place] [address] OF [facility] Performed By: #### L [id number] #### [facility] CLIA [id number] [address] [place] [address] OF [facility] [place]AVERICK DIAG W LOIDA RTon 024 [place]AV[place] DIAG W LOIDA RT * * *Final Report* * * * * * SEE BOTTOM OF REPORT FOR ADDENDED TEXT * * * DATE OF EXAM: Feb 24 2024 2:32PM AAW 0629 - [place] DIAG W LOIDA RT / PROCEDURE REASON: multiple diagnoses * * * * Physician Interpretation * * * * [facility] BREAST [facility] [address] [facility][1]. [place] [address] - - - - - - - [...] will be issued when these become available. Brim Pouncer: DARIAN Transcribe Date/Time: Feb 24 2024 2:28P Dictated by : AN KIM MD This examination was interpreted and the report reviewed and electronically signed by: AN KIM MD on Feb 24 2024 3:08PM EST This document has been addended by: AN KIM MD on Mar 09 2024 6:08PM EST [id number] Normal [facility] US BIOPSY BREAST RTon [facility] US BIOPSY BREAST RT * * *Final Repor t* * * * * * SEE BOTTOM OF REPORT FOR ADDENDED TEXT * * * DATE OF EXAM: Feb 24 2024 2:24PM AAW 0598 - [facility] US BIOPSY BREAST RT / PROCEDURE REASON: multiple diagnoses * * * * Physician Interpretation * * * * [facility] 1 [place] [id number] - - - - - - - [...] will be issued when these become available. Brim Pouncer: DARIAN Transcribe Date/Time: Feb 24 2024 1:18P Dictated by : AN KIM MD This examination was interpreted and the report reviewed and electronically signed by: AN KIM MD on Feb 24 2024 3:08PM EST This document has been addended by: AN KIM MD on Mar 09 2024 6:08PM EST [id number] Normal [facility] No Panel InformationOrdered By: Ccf Provider on 02-24-2024 [facility] SURGICAL PATHOLOGYon 024 CASE REPORT Normal [facility] Comment on above: Order Comment: Speci men Type: TISSUE SPECIMEN Ordering Facility: [facility] Address: [address] [place] [address] Result Comment: Surg ica Pathology Report Case: [id number] Authorizing Provider: An Kim MD Collected: 02/24/2024 01:54 PM Ordering Location: [facility] Received: 02/25/2024 12:45 PM [facility] Pathologist: Shannan Reardon MD Specimen: Breast, Right, Core Biopsy, Right breast 11:00 3cmfn, 5 x 14g marfannye, Q clip, obtained 1:54pm, formalin 1:54pm Performed By: #### L [id number] #### [facility] CLIA [id number] [address] [place] [address] [place] #### S #### [facility] CLIA [id number] [address] CLINICAL HISTORY Birads 5 Normal [facility] Comment on above: Order Comment: Speci men Type: TISSUE SPECIMEN Ordering Facility: [facility] Address: [address] [place] [address] Performed By: #### L [id number] #### [facility] CLIA [id number] [address] [place] [address] [place] #### S #### [facility] CLIA [id number] [address] [place] DIAGNOSIS COMMENT Normal [facility] Comment on above: Order Comment: Speci men Type: TISSUE SPECIMEN Ordering Facility: [facility] Address: [address] [place] [address] Result Comment: The largest focus of invasive [...] reflex to FISH will be sent to [facility] with results reported separately. This case has been reviewed by Dr. Ted Mccann, who concurs with the above findings. Laboratory Developed Test (LDT) Disclaimer: Performance characteristics of immunohistochemical, immunofluorescent and chromogenic in-situ hybridization tests have been determined by the performing laboratory within [facility]???s Onelia Euceda Pathology and Laboratory Medicine Department ([facility], [facility], [facility], [facility], [facility], [facility], or [facility]) in a manner consistent with CLIA requirements. One or more of these tests have not been cleared or approved by the FDA. RT-PLM is regulated under CLIA as qualified to perform high-complexity testing. These tests are used for clinical purposes. They should not be regarded as investigational or for research. Positive and negative controls stain appropriately. Performed By: #### L [id number] #### [facility] CLIA [id number] [address] [place] [address] [place] #### S #### [facility] CLIA [id number] [address] [place] [address] FINAL DIAGNOSIS Normal [facility] Comment on above: Order Comment: Speci men Type: TISSUE SPECIMEN Ordering Facility: [facility] Address: [address] [place] [address] Result Comment: A. R ight breast, 11:00, 3 cm from nipple, Q clip, needle core biopsy: -- Invasive lobular carcinoma, provisional grade 2, see comment. Performed By: #### L [id number] #### [facility] CLIA [id number] [address] [place] [address] [place] #### S #### [facility] CLIA [id number] [address] [place] [address] FINAL PERFORMING LAB Normal [facility] Comment on above: Order Comment: Speci men Type: TISSUE SPECIMEN Ordering Facility: [facility] Address: [address] [place] [address] Result Comment: Diag nostic interpretation performed at [facility], [address] [place] [address] CLIA# [id number] Security Ambassador: Ted Mccann M.D. Performed By: #### L [id number] #### [facility] CLIA [id number] [address] [place] [address] #### S #### [facility] CLIA [id number] [address] [place] [address] Result Comment: Diag nostic interpretation performed at: [facility], [address] [place] [address] CLIA# [id number] Security Ambassador: Osmany Giles MD Electronically signed out by: Jimbo Zimmer MD Result Comment: Diag nostic interpretation performed at: [facility], [address] [place] [address] CLIA# [id number] Security Ambassador: Ted Mccann MD Electronically signed out by: Shannan Reardon MD Performed By: #### L [id number] #### [facility] CLIA [id number] [address] [place] [address] GROSS DESCRIPTION Normal [facility] Comment on above: Order Comment: Speci men Type: TISSUE SPECIMEN Ordering Facility: [facility] Address: [address] [place] [address] Result Comment: Kennedy Hoffman reast, Right, Core Biopsy Received in formalin [...] in 2 cassettes. Gross examination performed at [facility], [address] [place] [address] CLIA# [id number] [facility] February 25, 2024 1:26 PM Performed By: #### L [id number] #### [facility] CLIA [id number] [address] [place] [address] [facility] #### S #### [facility] CLIA [id number] 1 [place] [address] [facility] US Guidance for biopsy of Steffen lloyd 02-24-2024 IMPRESSION: ULTRASOU ND GUIDED BIOPSY Site 1: Successful ultrasound guided biopsy of the mass at 11 o'clock, 3 cm from the nipple in the right breast with placement of a Q shaped clip was successful. Waiting for pathology results. A final report will be issued when these become available. Brim Pouncer: DARIAN Transcribe Date/Time: Feb 24 2024 1:18P Dictated by : AN KIM MD This examination was interpreted and the report reviewed and electronically signed by: AN KIM MD on Feb 24 2024 3:08PM EST [facility] * * *Final Report* * * DATE OF EXAM: Feb 24 2024 2:24PM [facility] 0598 - [place] US BIOPSY BREAST RT / PROCEDURE REASON: multiple diagnoses * * * * Physician Interpretation * * * * [facility] [address] [facility]]. [place] [address] HISTORY: 73 year old patient presents for [...] demonstrates appropriate positioning on post biopsy mammogram. [facility] * * *Final Report* * * DATE OF EXAM: Feb 24 2024 2:24PM [facility] 0598 - [place] BIOPSY BREAST RT / PROCEDURE REASON: multiple diagnoses * * * * Physician Interpretation * * * * [facility] [address] [facility][[address]]. [place] [address] HISTORY: 73 year old patient presents for [...] will be issued when these become available. Brim Pouncer: DARIAN Transcribe Date/Time: Feb 24 2024 1:18P Dictated by : AN KIM MD This examination was interpreted and the report reviewed and electronically signed by: AN KIM MD on Feb 24 2024 3:08PM EST [facility] Radiology Study observation (narrative) Jorge [facility] DBT Breast - right diagnosti c for implanton 01-29-2024 IMPRESSION: Irregular mass in the right breast is highly suggestive of malignancy. An ultrasound guided biopsy is recommended. BI-RADS Category 5: Highly Suggestive of Malignancy Results and recommendations reviewed with the patient. Informed consent was signed in the office today. Interpreting Radiologist: Gisselle Kent M.D. Brim Pouncer: DARIAN Transcribe Date/Time: Jan 29 2024 8:41A Dictated by: GISSELLE KENT MD This examination was interpreted and the report reviewed and electronically signed by: GISSELLE KENT MD on Jan 29 2024 9:48AM [facility] DIVISION OF RADIOLOGY * * *Final Report* * * DATE OF EXAM: Jan 29 2024 9:13AM [facility] 0629 - [place] DIAG W LOIDA RT / PROCEDURE REASON: multiple diagnoses * * * * Physician Interpretation * * * * RESULT: [facility] [address] [place] [address] HISTORY: Patient is 73 years old and [...] at 11 o'clock. DIVISION OF RADIOLOGY Provider, [facility] - 01/29/2024 * * *Final Report* * * DATE OF EXAM: Jan 29 2024 9:13AM [facility] 0629 - [place] DIAG W LOIDA RT / PROCEDURE REASON: multiple diagnoses * * * * Physician Interpretation * * * * RESULT: [facility] [address] [place] [address] HISTORY: Patient is 73 years old and [...] office today. Interpreting Radiologist: Gisselle Kent M.D. Brim Pouncer: DARIAN Transcribe Date/Time: Jan 29 2024 8:41A Dictated by: GISSELLE KENT MD This examination was interpreted and the report reviewed and electronically signed by: GISSELLE KENT MD on Jan 29 2024 9:48AM EST [facility] No Panel Informationon 01-28 Radiology Study observation (narrative) [facility] No Panel InformationOrdered By: Ccf Provider on 01-29-2024 [facility] US Breast - right limitedon 01-29-2024 IMPRESSION: Irregular mass in the right breast is highly suggestive of malignancy. An ultrasound guided biopsy is recommended. BI-RADS Category 5: Highly Suggestive of Malignancy Results and recommendations reviewed with the patient. Informed consent was signed in the office today. Interpreting Radiologist: Gisselle Kent M.D. Brim Pouncer: DARIAN Transcribe Date/Time: Jan 29 2024 9:24A Dictated by : GISSELLE KENT MD This examination was interpreted and the report reviewed and electronically signed by: GISSELLE KENT MD on Jan 29 2024 9:48AM EST DIVISION OF RADIOLOGY * * *Final Report* * * DATE OF EXAM: Jan 29 2024 9:34AM [facility] 0594 - [place] BREAST [facility] RT / PROCEDURE REASON: multiple diagnoses * * * * Physician Interpretation * * * * [address] [address] HISTORY: Patient is 73 years old and [...] at 11 o'clock. DIVISION OF RADIOLOGY Provider, [facility] - 01/29/2024 * * *Final Report* * * DATE OF EXAM: Jan 29 2024 9:34AM U [id number] - [facility] RT / PROCEDURE REASON: multiple diagnoses * * * * Physician Interpretation * * * * [address] [address] [place] [address] HISTORY: Patient is 73 years old and [...] office today. Interpreting Radiologist: Gisselle Kent M.D. Brim Pouncer: DARIAN Transcribe Date/Time: Jan 29 2024 9:24A Dictated by : GISSELLE KENT MD This examination was interpreted and the report reviewed and electronically signed by: GISSELLE KENT MD on Jan 29 2024 9:48AM [facility] Absolute lymphocyte countOrd ered By: Justin Das on 07-08-2023 Lymphocytes Auto (Unsp spec) [#/Vol] 1.61 10*3/uL 0.83-4.51 [facility] Automated lymphocyte count a s percentage of total leukocytesOrdered By: Justin Das on 07-08-2023 Lymphocytes/100 WBC Auto (Unsp spec) 27.2 % 19-41 [facility] Basophil percentageOrdered B y: Justin Das on 07-08-2023 Basophils/100 WBC (Bld) 0.8 % 0-1 [facility] Chloride [Moles/Vol] 106 mmol/L 98-107 [facility] Eosinophils/100 WBC (Bld) 2.9 % 0-5 [facility] Glucose [Mass/Vol] 110 mg/dL 74-106 [facility] Comment on above: Fasting Glucose resu lt from 100 to 125 mg/dL suggests IMPAIRED HOMEOSTASIS per A.D.A. criteria. Hemoglobin (Bld) [Mass/Vol] 14.5 g/dL 12.0-15.0 [facility] Monocytes/100 WBC (Bld) 9.8 % 0-10 [facility] Neutrophils (Bld) [#/Vol] 3.5 10*3/uL 2.0-7.7 [facility] Neutrophils/100 WBC (Bld) 59.1 % 47-70 [facility] Potassium [Moles/Vol] 3.9 mmol/L 3.5-5.1 [facility] Sodium [Moles/Vol] 142 mmol/L 136-145 [facility] WBC (Bld) [#/Vol] 5.9 10*3/uL 4.4-11.0 [facility] Determination of erythrocyte mean corpuscular volume (MCV)Ordered By: Justin Das on 07-08-2023 MCV (RBC) [Entitic vol] 93.8 fL 81-99 [facility] Erythrocyte distribution wid th ratioOrdered By: Justin Das on 07-08-2023 Erythrocyte distribution width (RBC) [Ratio] 13.1 % 11.6-14.6 [facility] Erythrocyte distribution wid th standard deviationOrdered By: Justin Das on 07-08-2023 Erythrocyte distribution width (RBC) [Entitic vol] 45.0 fL 35.1-43.9 [facility] Hematocrit Auto (Bld) [Volum e fraction]Ordered By: Justin Das on 07-08-2023 Hematocrit (Bld) [Volume fraction] 46.8 % 37-47 [facility] Immature granulocytes/100 WB C Auto (Bld)Ordered By: Justin Das on 07-08-2023 Immature granulocytes/100 WBC (Bld) 0.200 % 0.0-0.9 [facility] Comment on above: IG% - Immature Granu locytes (promyelocytes, myelocytes and metamyelocytes) > 1% indicates that a LEFT SHIFT is Present. Laboratory - Chemistry and C hemistry - challengeOrdered By: Justin Das on 07-08-2023 CO2 [Moles/Vol] 33.0 mmol/L 21.0-32.0 [facility] Urea nitrogen/Creatinine [Mass ratio] 26.2 mg/mg 10-20 [facility] Laboratory - Hematology and Cell countsOrdered By: Justin Das on 07-08-2023 MCH (RBC) [Entitic mass] 29.1 pg 27.0-32.0 [facility] MCHC (RBC) [Mass/Vol] 31.0 g/dL 32-36 [facility] Nucleated RBC/100 WBC (Bld) [Ratio] 0 % 0-5 [facility] Platelet mean volume (Bld) [Entitic vol] 8.9 fL 6.2-12.0 [facility] Platelets (Bld) [#/Vol] 390 10*3/uL 150-450 [facility] No Panel InformationOrdered By: Justin Das on 07-08-2023 Estimated GFR (MDRD) Amer 96 mL/min >60 [facility] Comment on above: GFR Calc Estimated GFR (MDRD) Non-Af Amer 80 mL/min >60 [facility] Comment on above: Non- GFR Calc RBC Auto (Bld) [#/Vol]Ordere d By: Justin Das on 07-08-2023 RBC (Bld) [#/Vol] 4.99 10*6/uL 4.2-5.4 [facility] Serum or plasma calcium jeffery urement (mass/volume)Ordered By: Justin Das on 07-08-2023 Calcium [Mass/Vol] 9.7 mg/dL 8.5-10.1 [facility] Serum or plasma creatinine m easurement (mass/volume)Ordered By: Justin Das on 07-08-2023 Creatinine [Mass/Vol] 0.76 mg/dL 0.55-1.02 [facility] Comment on above: The validity of the calculated GFR & GFRAA in patients over 70 years has not been determined. Clinical correlation is essential. Serum or plasma urea nitroge n measurement (mass/volume)Ordered By: Justin Das on 07-08-2023 Urea nitrogen [Mass/Vol] 20 mg/dL 7-18 [facility] Thin prep Papanicolaou smear with manual screeningOrdered By: Justin Das on 07-08-2023 Thin prep Papanicolaou smear with manual screening 3.6 g/dL 3.2-5.0 [facility] Thin prep Papanicolaou smear with manual screening 3 5-15 [facility] US BREAST BIOPSY LEFT (POC) SURG USE ONLYon 12-28-2021 [facility] MAVERICK SCREENING W TOMOon 12-11 [facility] ANES POSTPROC EVALon 021 ANES POSTPROC EVAL HNO ID: [id number] Author: Tru Garnett MD Service: Anesthesiology Author Type: Anesthesiologist Type: Anesthesia Postprocedure Evaluation Filed: 04/06/2021 5:42 PM Note Text: POST ANESTHESIA EVALUATION NOTE : 1950 Procedure Summary Date: 04/06/21 Room / Location: MS OR / MS OR Anesthesia Start: 1138 Anesthesia Stop: 163 Procedures: VAGINAL HYSTERECTOMY W/ REMOVAL OF TUBE(S), [...] April 06, 2021 TIME: 5:41 PM CSN: [id number] [facility] ANES PRE-OPon 04-06-2021 ANES PRE-OP HNO ID: [id number] Author: Tru Garnett MD Service: Anesthesiology Author [...] SLING TAPE TRANSVAGINAL (N/A Vagina ) Location: MS OR06 / MS OR Surgeons: Giana Lima MD Estimated body [...] 1 capsule by mouth once daily. - Aydsfosk-Fyfadlu-Vkfm-L utein (CENTRUM SILVER ULTRA WOMEN'S) tab Take [...] April 06, 2021 TIME: 10:45 AM CSN: [id number] [facility] BRIEF OP NOTon 04-06-2021 BRIEF OP NOT HNO ID: [id number] Author: Mary Manzanares MD Service: Urogynecology Author [...] BRIEF OPERATIVE / PROCEDURE NOTE LOG ID: [id number] SURGERY/PROCEDURE DATE: 04/06/2021 INCISION/PROCEDURE START TIME: 12:02 PM INCISION CLOSE/PROCEDURE END TIME: 4:18 PM SURGEON(S)/PROCEDURALIS T(S) AND LICENSED SOCIAL WORKER(S): Surgeon(s) and Role: * Giana Lima MD - Primary * Mary Manzanares MD - Resident - Assisting Physician Testboard Operator: Corin Law PA-C SURGERY/PROCEDURE(S): Total vaginal [...] DATE: April 06, 2021 TIME: 4:29 PM [facility] NURSING PROGon 04-06-2021 NURSING PROG HNO ID: [id number] Author: Cheryl Acosta, RN Service: Nursing Author [...] voiding trial orders. FC d/c'd per order. 1830 pt up to BR, unable to urinate. Back to bed with assist. IV fluids KVO. 1899 Dr Lima called AND updated. [facility] office will call pt on Sat to [...] jump batteries. 2024 ED called for assist, [place] [employer] officer in ED states he will assist pt's in lot A with a battery restart. 2049 pt d/c'd via wheelchair. [facility] OPERATIVE NOon 12-09-2021 OPERATIVE NO HNO ID: [id number] Author: Giana Lima MD Service: Urogynecology Author Type: Physician Type: Operative Report Filed: 04/09/2021 7:15 PM Note Text: OPERATIVE/PROCEDURE REPORT LOG ID: [id number] SURGERY/PROCEDURE DATE: 04/06/2021 INCISION/PROCEDURE START TIME: 12:02 PM INCISION CLOSE/PROCEDURE END TIME: 4:18 PM SURGEON(S)/PROCEDURALIS T(S) AND LICENSED SOCIAL WORKER(S): Surgeon(s) and Role: * Giana Lima MD - Primary * Mary Manzanares MD - Resident - Assisting Physician Testboard Operator: Corin Law PA-C SURGERY/PROCEDURE(S): Transvaginal hysterectomy [...] These w (more content not included)... Normal [facility] SURGICAL PATHOLOGYon 021 SURGICAL PATHOLOGY Specimen originated from [facility] Specimen #: [id number] Submitting Physician: GIANA LIMA FINAL DIAGNOSIS Uterus, [...] TUBES CLINICAL DATA INCOMPLETE UTEROVAGINAL PROLAPSE, LMP: SCHOOL NURSE GROSS DESCRIPTION A. Received in formalin labeled [...] fimbriated end measuring 1.0 x 0.8 cm. Tempering Oven Operator sections are submitted as follows: A1 12 [...] A9 fallopian tube fragment #3 totally submitted. MLLeila/meet 04/07/2021 [place] [address] Date of Report: 04/11/2021 Date of Procedure: 04/06/2021 Date of Receipt: 04/06/2021 Submitted by: GIANA LIMA Location: [facility]OR Diagnostic interpretation performed at [facility], [address] [place] [address]. CLIA Number: [id number] Normal [facility] Confirm Blood Typeon ABO/RH(D) Positive [facility] Comment on above: Performed By: #### C ONABO #### [facility] Laboratory [address] [facility] [phone] Type and SCR (30D)on ABO/RH(D) Positive [facility] Comment on above: Performed By: #### T [id number] #### [facility] [address] [facility] [phone] CT ABDOMEN/PELVIS W/WO CONTo n 04-05-2018 CT [...] VELÁSQUEZ M.D. Signed By: YOSEPH VELÁSQUEZ M.D. [facility] Vital Signs Date Time Vital Sign Value Performing Clinician Faci luisy 11-24-2024 08:46-0400 Body mass index (BMI) [Ratio] 35.25 kg/m2 Lizeth Sifuentes APRN.CNP Work Phone: [facility] 11-24-2024 08:46-0400 Body weight 88 kg Lizeth Sifuentes APRN.CNP Work Phone: [facility] 11-24-2024 08:46-0400 Diastolic blood pressure 76 mm[Hg] Lizeth Sifuentes APRN.CNP Work Phone: [facility] 11-24-2024 08:46-0400 Heart rate 93 /min Lizeth Sifuentes DYE PENETRANT TESTING TECHNICIAN.HYDRO TECHNICIAN Work Phone: [facility] 11-24-2024 08:46-0400 Systolic blood pressure 129 mm[Hg] Lizeth Sifuentes DYE PENETRANT TESTING TECHNICIAN.HYDRO TECHNICIAN Work Phone: [facility] 10-21-2024 08:55-0400 Body mass index (BMI) [Ratio] 34.85 kg/m2 Effie Vaz DYE PENETRANT TESTING TECHNICIAN.HYDRO TECHNICIAN Work Phone: [facility] 10-21-2024 08:55-0400 Body temperature 97.59 [degF] Effie Vaz DYE PENETRANT TESTING TECHNICIAN.HYDRO TECHNICIAN Work Phone: [facility] 10-21-2024 08:55-0400 Body weight 87 kg Effie Vaz DYE PENETRANT TESTING TECHNICIAN.HYDRO TECHNICIAN Work Phone: [facility] 10-21-2024 08:55-0400 Diastolic blood pressure 85 mm[Hg] Effie Vaz DYE PENETRANT TESTING TECHNICIAN.HYDRO TECHNICIAN Work Phone: [facility] 10-21-2024 08:55-0400 Heart rate 90 /min Effie Vaz DYE PENETRANT TESTING TECHNICIAN.HYDRO TECHNICIAN Work Phone: [facility] 10-21-2024 08:55-0400 SaO2% (BldA) [Mass fraction] 96 % Effie Vaz DYE PENETRANT TESTING TECHNICIAN.HYDRO TECHNICIAN Work Phone: [facility] 10-21-2024 08:55-0400 Systolic blood pressure 134 mm[Hg] Effie Vaz DYE PENETRANT TESTING TECHNICIAN.HYDRO TECHNICIAN Work Phone: [facility] 10-19-2024 09:08-0400 Body mass index (BMI) [Ratio] 35.25 kg/m2 Remington Sung MD Work Phone: [facility] 10-19-2024 09:08-0400 Body weight 88 kg Remington uSng MD Work Phone: [facility] 10-19-2024 09:08-0400 Diastolic blood pressure 84 mm[Hg] Remington Sung MD Work Phone: [facility] 10-19-2024 09:08-0400 Heart rate 86 /min Remington Sung MD Work Phone: [facility] 10-19-2024 09:08-0400 Respiratory rate 14 /min Remington Sung MD Work Phone: [facility] 10-19-2024 09:08-0400 Systolic blood pressure 157 mm[Hg] Remington Sung MD Work Phone: [facility] 10-06-2024 08:39-0400 Body mass index (BMI) [Ratio] 35.25 kg/m2 Lizeth Sifuentes APRN.HYDRO TECHNICIAN Work Phone: [facility] 10-06-2024 08:39-0400 Body weight 88 kg Lizeth Sifuentes APRN.HYDRO TECHNICIAN Work Phone: [facility] 10-06-2024 08:39-0400 Diastolic blood pressure 82 mm[Hg] Lizeth Sifuentes DYE PENETRANT TESTING TECHNICIAN.HYDRO TECHNICIAN Work Phone: [facility] 10-06-2024 08:39-0400 Heart rate 80 /min Lizeth Sifuentes APRN.HYDRO TECHNICIAN Work Phone: [facility] 10-06-2024 08:39-0400 Systolic blood pressure 131 mm[Hg] Lizeth Sifuentes APRN.HYDRO TECHNICIAN Work Phone: [facility] 07-14-2024 13:03-0400 Body mass index (BMI) [Ratio] 34.85 kg/m2 Effie Vaz DYE PENETRANT TESTING TECHNICIAN.HYDRO TECHNICIAN Work Phone: [facility] 07-14-2024 13:03-0400 Body temperature 98.49 [degF] Effie Vaz DYE PENETRANT TESTING TECHNICIAN.HYDRO TECHNICIAN Work Phone: [facility] 07-14-2024 13:03-0400 Body weight 87 kg Effie Vaz APRN.HYDRO TECHNICIAN Work Phone: [facility] 07-14-2024 13:03-0400 Diastolic blood pressure 82 mm[Hg] Effie Vaz DYE PENETRANT TESTING TECHNICIAN.HYDRO TECHNICIAN Work Phone: [facility] 07-14-2024 13:03-0400 Heart rate 93 /min Effie Vaz DYE PENETRANT TESTING TECHNICIAN.HYDRO TECHNICIAN Work Phone: [facility] 07-14-2024 13:03-0400 SaO2% (BldA) [Mass fraction] 95 % Effie Vaz DYE PENETRANT TESTING TECHNICIAN.HYDRO TECHNICIAN Work Phone: [facility] 07-14-2024 13:03-0400 Systolic blood pressure 130 mm[Hg] Effie Vaz DYE PENETRANT TESTING TECHNICIAN.HYDRO TECHNICIAN Work Phone: [facility] 06-22-2024 09:45-0500 Body mass index (BMI) [Ratio] 34.89 kg/m2 Remington Sung MD Work Phone: [facility] 06-22-2024 09:45-0500 Body weight 87.09 kg Remington Sung MD Work Phone: [facility] 06-22-2024 09:45-0500 Diastolic blood pressure 90 mm[Hg] Remington Sung MD Work Phone: [facility] 06-22-2024 09:45-0500 Heart rate 96 /min Remington Sung MD Work Phone: [facility] 06-22-2024 09:45-0500 Respiratory rate 14 /min Remington Sung MD Work Phone: [facility] 06-22-2024 09:45-0500 Systolic blood pressure 148 mm[Hg] Remington Sung MD Work Phone: [facility] 06-09-2024 09:54-0500 Body temperature 98.71 [degF] Juan Lopez MD Work Phone: [facility] 06-09-2024 09:54-0500 Diastolic blood pressure 79 mm[Hg] Juan Lopez MD Work Phone: [facility] 06-09-2024 09:54-0500 Heart rate 84 /min Juan Lopez MD Work Phone: [facility] 06-09-2024 09:54-0500 SaO2% (BldA) [Mass fraction] 97 % Juan Lopez MD Work Phone: [facility] 06-09-2024 09:54-0500 Systolic blood pressure 120 mm[Hg] Juan Lopez MD Work Phone: [facility] 06-02-2024 09:34-0500 Body temperature 98.6 [degF] Juan Lopez MD Work Phone: [facility] 06-02-2024 09:34-0500 Diastolic blood pressure 84 mm[Hg] Juan Lopez MD Work Phone: [facility] 06-02-2024 09:34-0500 Heart rate 87 /min Juan Lopez MD Work Phone: [facility] 06-02-2024 09:34-0500 SaO2% (BldA) [Mass fraction] 97 % Juan Lopez MD Work Phone: [facility] 06-02-2024 09:34-0500 Systolic blood pressure 117 mm[Hg] Juan Lopez MD Work Phone: [facility] 05-26-2024 09:43-0500 Body temperature 98.6 [degF] Juan Lopez MD Work Phone: [facility] 05-26-2024 09:43-0500 Diastolic blood pressure 85 mm[Hg] Juan Lopez MD Work Phone: [facility] 05-26-2024 09:43-0500 Heart rate 79 /min Juan Lopez MD Work Phone: [facility] 05-26-2024 09:43-0500 SaO2% (BldA) [Mass fraction] 95 % Juan Lopez MD Work Phone: [facility] 05-26-2024 09:43-0500 Systolic blood pressure 122 mm[Hg] Juan Lopez MD Work Phone: [facility] 05-14-2024 11:32-0500 Body mass index (BMI) [Ratio] 34.89 kg/m2 Ibrahima Dhaliwal DO Work Phone: [facility] 05-14-2024 11:32-0500 Body temperature 98.2 [degF] Ibrahima Wadsworthi DO Work Phone: [facility] 05-14-2024 11:32-0500 Body weight 87.09 kg Ibrahima Wadsworthi DO Work Phone: [facility] 05-14-2024 11:32-0500 Diastolic blood pressure 86 mm[Hg] Ibrahima Wadsworthi DO Work Phone: [facility] 05-14-2024 11:32-0500 Heart rate 95 /min Ibrahima Wadsworthi DO Work Phone: [facility] 05-14-2024 11:32-0500 SaO2% (BldA) [Mass fraction] 97 % Ibrahima Dhaliwal DO Work Phone: [facility] 05-14-2024 11:32-0500 Systolic blood pressure 132 mm[Hg] Ibrahima Wadsworthi DO Work Phone: [facility] 05-07-2024 10:33-0500 Body mass index (BMI) [Ratio] 34.8 kg/m2 Juan Lopez MD Work Phone: [facility] 05-07-2024 10:33-0500 Body temperature 97.9 [degF] Juan Lopez MD Work Phone: [facility] 05-07-2024 10:33-0500 Body weight 86.86 kg Juan Lopez MD Work Phone: [facility] 05-07-2024 10:33-0500 Diastolic blood pressure 65 mm[Hg] Juan Lopez MD Work Phone: [facility] 05-07-2024 10:33-0500 Heart rate 76 /min Juan Lopez MD Work Phone: [facility] 05-07-2024 10:33-0500 Respiratory rate 15 /min Juan Lopez MD Work Phone: [facility] 05-07-2024 10:33-0500 SaO2% (BldA) [Mass fraction] 96 % Juan Lopez MD Work Phone: [facility] 05-07-2024 10:33-0500 Systolic blood pressure 125 mm[Hg] Juan Lopez MD Work Phone: [facility] 04-30-2024 08:01-0500 Body mass index (BMI) [Ratio] 34.69 kg/m2 Remington Sung MD Work Phone: [facility] 04-30-2024 08:01-0500 Body weight 86.59 kg Remington Sung MD Work Phone: [facility] 04-30-2024 08:01-0500 Diastolic blood pressure 82 mm[Hg] Remington Sung MD Work Phone: [facility] 04-30-2024 08:01-0500 Heart rate 85 /min Remington Sung MD Work Phone: [facility] 04-30-2024 08:01-0500 Respiratory rate 16 /min Remington Sung MD Work Phone: [facility] 04-30-2024 08:01-0500 Systolic blood pressure 150 mm[Hg] Remington Sung MD Work Phone: [facility] 04-16-2024 10:05-0500 Body height 158 cm Ibrahima Dhaliwal DO Work Phone: [facility] 04-16-2024 10:05-0500 Body mass index (BMI) [Ratio] 34.8 kg/m2 Ibrahima Wadsworthi DO Work Phone: [facility] 04-16-2024 10:05-0500 Body temperature 98.6 [degF] Ibrahima Wadsworthi DO Work Phone: [facility] 04-16-2024 10:05-0500 Body weight 86.86 kg Ibrahima Dhaliwal DO Work Phone: [facility] 04-16-2024 10:05-0500 Diastolic blood pressure 78 mm[Hg] Ibrahima Dhaliwal DO Work Phone: [facility] 04-16-2024 10:05-0500 Heart rate 89 /min Ibrahima Dhaliwal DO Work Phone: [facility] 04-16-2024 10:05-0500 SaO2% (BldA) [Mass fraction] 95 % Ibrahima Dhaliwal DO Work Phone: [facility] 04-16-2024 10:05-0500 Systolic blood pressure 113 mm[Hg] Ibrahima Dhaliwal DO Work Phone: [facility] 03-09-2024 12:56-0500 Body mass index (BMI) [Ratio] 34.68 kg/m2 Remington Sung MD Work Phone: [facility] 03-09-2024 12:56-0500 Body weight 86.59 kg Remington Sung MD Work Phone: [facility] 03-09-2024 12:56-0500 Diastolic blood pressure 80 mm[Hg] Remington Sung MD Work Phone: [facility] 03-09-2024 12:56-0500 Heart rate 89 /min Remington Sung MD Work Phone: [facility] 03-09-2024 12:56-0500 Respiratory rate 14 /min Remington Sung MD Work Phone: [facility] 03-09-2024 12:56-0500 Systolic blood pressure 124 mm[Hg] Remington Sung MD Work Phone: [facility] 02-03-2024 13:31-0400 Body height 158 cm Azra Meeks MD Work Phone: [facility] 02-03-2024 13:31-0400 Body mass index (BMI) [Ratio] 34.88 kg/m2 Azra Meeks MD Work Phone: [facility] 02-03-2024 13:31-0400 Body temperature 97.7 [degF] Azra Meeks MD Work Phone: [facility] 02-03-2024 13:31-0400 Body weight 87.09 kg Azra Meeks MD Work Phone: [facility] 02-03-2024 13:31-0400 Diastolic blood pressure 84 mm[Hg] Azra Meeks MD Work Phone: [facility] 02-03-2024 13:31-0400 Heart rate 96 /min Azra Meeks MD Work Phone: [facility] 02-03-2024 13:31-0400 Respiratory rate 14 /min Azra Meeks MD Work Phone: [facility] 02-03-2024 13:31-0400 SaO2% (BldA) [Mass fraction] 96 % Azra Meeks MD Work Phone: [facility] 02-03-2024 13:31-0400 Systolic blood pressure 122 mm[Hg] Azra Meeks MD Work Phone: [facility] 01-29-2024 09:57-0400 Body mass index (BMI) [Ratio] 34.57 kg/m2 Effie Vaz DYE PENETRANT TESTING TECHNICIAN.HYDRO TECHNICIAN Work Phone: [facility] 01-29-2024 09:57-0400 Body weight 86.3 kg Effie Vaz DYE PENETRANT TESTING TECHNICIAN.HYDRO TECHNICIAN Work Phone: [facility] 01-29-2024 09:57-0400 Diastolic blood pressure 79 mm[Hg] Effie Vaz DYE PENETRANT TESTING TECHNICIAN.HYDRO TECHNICIAN Work Phone: [facility] 01-29-2024 09:57-0400 Heart rate 93 /min Effie Vaz DYE PENETRANT TESTING TECHNICIAN.HYDRO TECHNICIAN Work Phone: [facility] 01-29-2024 09:57-0400 SaO2% (BldA) [Mass fraction] 96 % Effie Vaz DYE PENETRANT TESTING TECHNICIAN.HYDRO TECHNICIAN Work Phone: [facility] 01-29-2024 09:57-0400 Systolic blood pressure 117 mm[Hg] Effie Vaz DYE PENETRANT TESTING TECHNICIAN.HYDRO TECHNICIAN Work Phone: [facility] 07-15-2023 08:33-0400 Body weight 83.92 kg Lizeth Sifuentes DYE PENETRANT TESTING TECHNICIAN.HYDRO TECHNICIAN Work Phone: [facility] 07-15-2023 08:33-0400 Diastolic blood pressure 74 mm[Hg] Lizeth Sifuentes DYE PENETRANT TESTING TECHNICIAN.HYDRO TECHNICIAN Work Phone: [facility] 07-15-2023 08:33-0400 Heart rate 82 /min Lizeth Sifuentes DYE PENETRANT TESTING TECHNICIAN.HYDRO TECHNICIAN Work Phone: [facility] 07-15-2023 08:33-0400 Respiratory rate 16 /min Lizeth Sifuentes DYE PENETRANT TESTING TECHNICIAN.HYDRO TECHNICIAN Work Phone: [facility] 07-15-2023 08:33-0400 Systolic blood pressure 128 mm[Hg] Lizeth Sifuentes DYE PENETRANT TESTING TECHNICIAN.HYDRO TECHNICIAN Work Phone: [facility] 01-04-2023 08:30-0400 Body height 159 cm Effie Vaz DYE PENETRANT TESTING TECHNICIAN.HYDRO TECHNICIAN Work Phone: [facility] 01-04-2023 08:30-0400 Body temperature 98.4 [degF] Effie Vaz DYE PENETRANT TESTING TECHNICIAN.HYDRO TECHNICIAN Work Phone: [facility] 01-04-2023 08:30-0400 Body weight 83.01 kg Effie Vaz DYE PENETRANT TESTING TECHNICIAN.HYDRO TECHNICIAN Work Phone: [facility] 01-04-2023 08:30-0400 Diastolic blood pressure 56 mm[Hg] Effie Vaz DYE PENETRANT TESTING TECHNICIAN.HYDRO TECHNICIAN Work Phone: [facility] 01-04-2023 08:30-0400 Heart rate 78 /min Effie Vaz DYE PENETRANT TESTING TECHNICIAN.HYDRO TECHNICIAN Work Phone: [facility] 01-04-2023 08:30-0400 SaO2% (BldA) [Mass fraction] 97 % Effie Vaz DYE PENETRANT TESTING TECHNICIAN.HYDRO TECHNICIAN Work Phone: [facility] 01-04-2023 08:30-0400 Systolic blood pressure 118 mm[Hg] Effie Vaz DYE PENETRANT TESTING TECHNICIAN.HYDRO TECHNICIAN Work Phone: [facility] 12-26-2021 09:31-0400 Body height 158.5 cm Tiffany Ugarte PA-C Work Phone: [facility] 12-26-2021 09:31-0400 Body temperature 97.39 [degF] Tiffany Ugarte PA-C Work Phone: [facility] 12-26-2021 09:31-0400 Body weight 82.1 kg Tiffany Ugarte PA-C Work Phone: [facility] 12-26-2021 09:31-0400 Diastolic blood pressure 76 mm[Hg] Tiffany Ugarte PA-C Work Phone: [facility] 12-26-2021 09:31-0400 Heart rate 72 /min Tiffany Torito PA-C Work Phone: [facility] 12-26-2021 09:31-0400 Respiratory rate 18 /min Tiffany Ugarte PA-C Work Phone: [facility] 12-26-2021 09:31-0400 Systolic blood pressure 110 mm[Hg] Tiffany Ugarte PA-C Work Phone: [facility] 12-25-2021 08:57-0400 Body height 157.5 cm Azra Meeks MD Work Phone: [facility] 12-25-2021 08:57-0400 Body weight 82.1 kg Azra Meeks MD Work Phone: [facility] 12-25-2021 08:57-0400 Diastolic blood pressure 73 mm[Hg] Azra Meeks MD Work Phone: [facility] 12-25-2021 08:57-0400 Heart rate 81 /min Azra Meeks MD Work Phone: [facility] 12-25-2021 08:57-0400 SaO2% (BldA) [Mass fraction] 96 % Azra Meeks MD Work Phone: [facility] 12-25-2021 08:57-0400 Systolic blood pressure 108 mm[Hg] Azra Meeks MD Work Phone: [facility] 12-14-2021 08:27-0400 Body height 159.8 cm Effie Vaz APRN.HYDRO TECHNICIAN Work Phone: [facility] 12-14-2021 08:27-0400 Body temperature 98.2 [degF] [place] Vaz DYE PENETRANT TESTING TECHNICIAN.HYDRO TECHNICIAN Work Phone: [facility] 12-14-2021 08:27-0400 Body weight 81.19 kg Effie Vaz DYE PENETRANT TESTING TECHNICIAN.HYDRO TECHNICIAN Work Phone: [facility] 12-14-2021 08:27-0400 Diastolic blood pressure 74 mm[Hg] Effie Arringtonenter DYE PENETRANT TESTING TECHNICIAN.HYDRO TECHNICIAN Work Phone: [facility] 12-14-2021 08:27-0400 Heart rate 81 /min Effie Arringtonenter DYE PENETRANT TESTING TECHNICIAN.HYDRO TECHNICIAN Work Phone: [facility] 12-14-2021 08:27-0400 SaO2% (BldA) [Mass fraction] 98 % Effie Vaz DYE PENETRANT TESTING TECHNICIAN.HYDRO TECHNICIAN Work Phone: [facility] 12-14-2021 08:27-0400 Systolic blood pressure 107 mm[Hg] Effie Arringtonenter DYE PENETRANT TESTING TECHNICIAN.HYDRO TECHNICIAN Work Phone: [facility] 09-14-2021 15:23-0400 Body temperature 97.81 [degF] Myra Guicho DYE PENETRANT TESTING TECHNICIAN.HYDRO TECHNICIAN Work Phone: [facility] 09-14-2021 15:23-0400 Body weight 82.74 kg Myra Motley DYE PENETRANT TESTING TECHNICIAN.HYDRO TECHNICIAN Work Phone: [facility] 09-14-2021 15:23-0400 Diastolic blood pressure 78 mm[Hg] Myra Motley DYE PENETRANT TESTING TECHNICIAN.HYDRO TECHNICIAN Work Phone: [facility] 09-14-2021 15:23-0400 Heart rate 81 /min Myra Motley DYE PENETRANT TESTING TECHNICIAN.HYDRO TECHNICIAN Work Phone: [facility] 09-14-2021 15:23-0400 Respiratory rate 18 /min Myra Motley DYE PENETRANT TESTING TECHNICIAN.HYDRO TECHNICIAN Work Phone: [facility] 09-14-2021 15:23-0400 SaO2% (BldA) [Mass fraction] 98 % Myra Motley DYE PENETRANT TESTING TECHNICIAN.HYDRO TECHNICIAN Work Phone: [facility] 09-14-2021 15:23-0400 Systolic blood pressure 122 mm[Hg] Myra Motley APRN.HYDRO TECHNICIAN Work Phone: [facility] Encounters Encounter Date Encounter Type Care Provider Facility Start: 02-18-2025 End: 02-18-2025 ambulatory EFFIE [place] Facility:[facility] Start: 01-05-2025 ambulatory GERARDO Meadei ty:[facility] Start: 01-05-2025 End: 01-05-2025 Subsequent hospital visit by physician Diagnostic Mammo [facility] Start: 11-24-2024 End: 11-24-2024 Patient encounter procedure Lizeth Sifuentes APRN.HYDRO TECHNICIAN Work Phone: [facility] Comment on above: Pre-op chest exam (P rimary Dx) Start: 11-24-2024 End: 11-24-2024 Patient encounter status Lizeth Sifuentes APRN.HYDRO TECHNICIAN Work Phone: [facility] Work Phone: Start: 11-24-2024 End: 11-24-2024 ambulatory GERARDO SALEH Facility:[facility] Start: 11-24-2024 Encounter for preprocedural respiratory examination LIZETH SIFUENTES [facility] Start: 11-19-2024 Encounter for other preprocedural examination Justin Das [facility] Start: 11-16-2024 End: 11-16-2024 Chart abstracting Gerardo Saleh MD Work Phone: [facility] Comment on above: Outside CT Scan Start: 11-13-2024 End: 11-13-2024 Chart abstracting Gerardo Saleh MD Work Phone: [facility] Comment on above: Outside Etbg-Qkl-KBU Ordered Start: 11-13-2024 End: 11-13-[address] Gerardo Saleh MD Work Phone: -Cat Scan [facility] Start: 11-13-2024 End: 11-13-[address] 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, estrogen receptor positive (HCC) (Primary Dx) Start: 10-19-2024 End: 10-19-2024 Patient encounter procedure Remington Sung MD Work Phone: [facility] Breast Surgery Comment on above: 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) (Primary Dx); 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); Estrogen receptor positive status (ER+); Personal history of malignant neoplasm of breast Start: 10-19-2024 End: 10-19-2024 ambulatory REMINGTON SUNG Facility:[id number] Start: 10-08-2024 End: 12-08-2024 Follow-up encounter Lizeth Sifuentes APRN.HYDRO TECHNICIAN Work Phone: [facility] Start: 10-06-2024 End: 10-06-2024 Patient encounter procedure Lizeth Sifuentes APRN.HYDRO TECHNICIAN Work Phone: [facility] Comment on above: Medicare annual well ness [...] Start: 10-06-2024 End: 10-06-2024 ambulatory GERARDO SALEH Facility: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, estrogen receptor positive (HCC) (Primary Dx) Start: 07-14-2024 End: 07-14-2024 Patient encounter procedure Effie Vaz APRN.HYDRO TECHNICIAN Work Phone: Hematology/Oncology Start: 07-08-2024 End: 07-08-2024 [...] encounter procedure Remington Sung MD Work Phone: [facility] Breast Surgery Comment on above: 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) (Primary Dx); 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); Estrogen receptor positive status (ER+); Personal history of malignant neoplasm of breast Start: 06-22-2024 End: 06-22-2024 ambulatory REMINGTON SUNG Facility:[id number] Start: 06-18-2024 End: 06-18-2024 ambulatory GERARDO SALEH Facility:[facility] Start: 06-18-2024 End: 06-18-2024 Subsequent hospital visit by physician Bone Density [facility] Work Phone: Radiology Comment on above: [...] Start: 06-11-2024 End: 06-11-2024 ambulatory GERARDO SALEH Facility:[facility] Start: 06-10-2024 End: 06-10-2024 ambulatory GERARDO SALEH Facility: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 Start: 06-08-2024 End: 06-08-2024 ambulatory GERARDO SALEH Facility:[facility] Start: 06-05-2024 End: 06-05-2024 ambulatory GERARDO SALEH Facility:[facility] Start: 06-04-2024 End: 06-04-2024 ambulatory GERARDO SALEH Facility:[facility] Start: 06-03-2024 End: 06-03-2024 ambulatory GERARDO A DELFINO Facility: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 Start: 06-01-2024 End: 06-01-2024 ambulatory GERARDO A DELFINO Facility:[facility] Start: 05-29-2024 End: 05-29-2024 ambulatory GERARDO A DELFINO Facility:[facility] Start: 05-28-2024 End: 05-28-2024 ambulatory GERARDO SALEH Facility:[facility] Start: 05-27-2024 End: 05-27-2024 [facility] Facility: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 Start: 05-25-2024 End: 05-25-2024 [facility] Facility:[facility] Start: 05-20-2024 End: 05-22-2024 Patient encounter procedure Juan Lopez MD Work Phone: Radiation Oncology Start: 05-20-2024 End: 05-22-2024 Radiation Oncology Note Juna Lopez MD Work Phone: Radiation Oncology Comment on above: Treatment Planning Simulation Note Start: 05-20-2024 End: 05-20-2024 [facility] Facility: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 Start: 05-14-2024 End: 05-14-2024 Patient encounter [...] Start: 05-07-2024 End: 05-07-2024 ambulatory GERARDO SALEH Facility: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) (Primary Dx); Estrogen receptor positive status (ER+); Personal history of malignant neoplasm of breast; 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) Start: 04-30-2024 End: 04-30-2024 ambulatory REMINGTON SUNG Facility:[id number] Start: 04-16-2024 End: 04-16-2024 ambulatory Ibrahima Dhaliwal DO Work Phone: Hematology/Oncology Comment on above: 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, estrogen receptor positive (HCC) (Primary Dx) Start: 04-16-2024 End: 04-16-2024 Patient encounter procedure Ibrahima Dhaliwal DO Work Phone: Hematology/Oncology Start: 04-15-2024 End: 04-15-2024 Chart abstracting Edwin Motley MA [facility] [place] Comment on above: Consult (Outside fac ility - genetics /) Start: 04-10-2024 End: 04-10-2024 ambulatory MARY BETH CHEN [facility] Start: 04-02-2024 End: 04-02-2024 Telephone encounter Giana Velasco RN [facility] Breast Surgery Start: 04-01-2024 ambulatory REMINGTON [place] acility:[id number] Start: 04-01-2024 End: 04-01-2024 Subsequent hospital visit by physician [facility] 2 [facility] Comment on above: Malignant neoplasm o f upper-outer 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, unspecified estrogen receptor status (HCC) [C50.411] Malignant neoplasm o f upper-outer 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 [C50.411] Start: 04-01-2024 End: 04-01-2024 ambulatory REMINGTON SUNG Facility:[id number] Start: 03-30-2024 Patient encounter status [address] Work Phone: Start: 03-23-2024 End: 03-23-2024 Nursing evaluation of patient and report Nurse Breast Surg [facility] Breast Surgery Comment on above: 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) (Primary Dx) Start: 03-23-2024 End: 03-23-2024 ambulatory GERARDO SALEH Facility:[id number] Start: 03-19-2024 End: 03-19-2024 Chart abstracting Gerardo Saleh MD Work Phone: [facility] [place] Comment on above: EKG Start: 03-19-2024 End: [...] Start: 03-19-2024 End: 03-19-2024 ambulatory BREANNE OCAMPO [facility] Start: 03-19-2024 End: 03-19-2024 ambulatory REMINGTON SUNG [facility] Start: 03-18-2024 End: 03-18-2024 Telephone encounter Loly Mckeon MALIKA [facility] Breast Surgery Start: 03-17-2024 End: 03-17-2024 ambulatory REMINGTON SUNG Facility:[id number] Start: 03-17-2024 Evaluation and manag ement of inpatient REMINGTON SUNG Facility:[id number] Start: 03-17-2024 End: 03-17-2024 Subsequent hospital visit by physician Ekg/Natali Thompson Work Phone: [facility] Cardiology Comment on above: 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) [C50.411] Start: 03-15-2024 End: 03-16-2024 Telephone encounter Ibrahima Dhaliwal DO Work Phone: Hematology/Oncology Comment on above: Follow Up Start: 03-10-2024 End: 03-10-2024 Telephone encounter Loly Jameskelly DALY [facility] Breast Surgery Start: 03-09-2024 End: 03-09-2024 Patient encounter procedure [facility] Provider [facility] Department Comment on above: 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) (Primary Dx); Estrogen receptor positive status (ER+); Personal history of malignant neoplasm of breast; 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) Start: 03-09-2024 End: 03-09-2024 ambulatory REMINGTON SUNG Facility:[id number] Start: 02-26-2024 End: 02-26-2024 Telephone encounter Azra Meeks MD Work Phone: General Surgery Comment on above: Results Start: 02-24-2024 ambulatory AZRA MEEKS Facili ty:[facility] Start: 02-24-2024 End: 02-24-2024 Subsequent hospital visit by physician Stereo/Ultrasound Biopsy [facility] Comment on above: History of left m[address] cancer [Z85.3] Start: 02-03-2024 End: 02-03-2024 Patient encounter procedure Azra Meeks MD Work Phone: General Surgery Comment on above: Abnormal ultrasound of breast; History of left breast cancer Start: 01-29-2024 End: 01-29-2024 Follow-up encounter Effie Vaz APRN.HYDRO TECHNICIAN Work Phone: Hematology/Oncology Comment on above: Encounter for follow -up surveillance of breast cancer (Primary Dx); Personal history of breast cancer; Abnormal mammogram of right breast; Malignant neoplasm of upper-outer quadrant of left breast in female, estrogen receptor positive (HCC) Start: 01-29-2024 End: 01-29-2024 Patient encounter procedure Effie Vaz APRN.HYDRO TECHNICIAN Work Phone: Hematology/Oncology Start: 01-29-2024 End: 01-29-2024 Subsequent hospital visit by physician Us [facility] Work Phone: Radiology Comment on above: Malignant neoplasm o f upper-outer quadrant of left breast in female, estrogen receptor positive (HCC) [C50.412, Z17.0] Start: 01-06-2024 End: 01-07-2024 Telephone encounter Lesvia Hopkins MD Work Phone: Mammography Comment on above: Mammogram Result Khurram l Back (right breast diag mamm and us per ) Start: 01-03-2024 End: 01-03-2024 Subsequent hospital visit by physician [facility] Comment on above: Personal history of breast cancer [Z85.3] Start: 07-15-2023 End: 07-15-2023 Patient encounter procedure Lizeth Sifuentes APRN.HYDRO TECHNICIAN Work Phone: [facility] [place] Comment on above: Encounter for pre-op erative examination (Primary Dx); Age-related osteoporosis without current pathological fracture; Class 1 obesity due to excess calories with serious comorbidity and body mass index (BMI) of 32.0 to 32.9 in adult; Osteoarthritis of left knee, unspecified osteoarthritis type Start: 07-15-2023 End: 07-15-2023 Preprocedural examination done Lizeth Sifuentes APRN.CNP Work Phone: [facility] Work Phone: Start: 07-11-2023 Chart abstracting Gerardo black MD Work Phone: [facility] Comment on above: Outside Imaging Start: 07-08-2023 Chart abstracting Gerardo black MD Work Phone: [facility] Comment on above: Outside Aahl-Dbw-XNR Ordered Start: 07-08-2023 End: 07-08-2023 Non-patient / Non-visit Dr. Gerardo Saleh Work Phone: [facility] [facility] Work Phone: Start: 07-08-2023 End: 07-08-[address] Gerardo Saleh Work Phone: [facility] Work Phone: Start: 07-08-2023 End: 07-08-[address] Gerardo Saleh Work Phone: [facility]-Cat Scan, [facility] Work Phone: Start: 05-20-2023 Patient encounter procedure LIZETH SIFUENTES [facility] Work Phone: Start: 04-18-2023 End: 04-18-2023 ambulatory [facility] Work Phone: Start: 04-18-2023 End: 04-18-2023 Discharged Recurring [facility]-Physical Therapy Work Phone: Start: 03-18-2023 ambulatory Gerardo healy MD Work Phone: [facility] Comment on above: Wellness check Start: 01-04-2023 End: 01-04-2023 ambulatory Effie Vaz APRN.HYDRO TECHNICIAN Work Phone: Hematology/Oncology Comment on above: Personal history of breast cancer (Primary Dx); Encounter for screening mammogram for high-risk patient Start: 01-04-2023 End: 01-04-2023 Patient encounter procedure Effie Vaz APRN.HYDRO TECHNICIAN Work Phone: [facility] Start: 01-01-2023 Documentation procedure Mammog eliz Coordinator [facility] Start: 01-01-2023 Letter encounter Mammography Coordinator [facility] Department Start: 10-22-2022 Telephone encounter Effie edwards APRNJovanHYDRO TECHNICIAN Work Phone: Hematology/Oncology Comment on above: Orders Start: 10-10-2022 ambulatory Jayleen Abdul MA [facility] [place] Comment on above: [facility] [place] Start: 01-08-2022 ambulatory Giana stewart MD Work Phone: [facility] Start: 01-08-2022 Patient encounter procedure Giana Lima MD Work Phone: 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[employer] [facility] Comment on above: Appointment Start: 01-02-2022 Telephone encounter Azra Cardenas MD Work Phone: General Surgery Comment on above: Results Start: 12-28-2021 End: 12-28-2021 Subsequent hospital visit by physician Diagnostic Mammo [facility] Comment on above: Abnormal ultrasound of breast [R92.8] Start: 12-28-2021 End: 12-28-2021 Patient encounter procedure Azra Meeks MD Work Phone: General Surgery Comment on above: Abnormal ultrasound of breast (Primary Dx) Start: 12-27-2021 Telephone encounter Tiffany fajardo PA-C Work Phone: [facility] [place] Comment on above: Results Start: 12-26-2021 End: 12-26-2021 Patient encounter procedure Tiffany Ugarte PA-C Work Phone: [facility] [place] Comment on above: Medicare annual well [...] 12-20-2021 Subsequent hospital visit by physician [facility] Work Phone: Radiology Start: 12-14-2021 End: 12-14-2021 ambulatory Effie Vaz APRN.HYDRO TECHNICIAN Work Phone: Hematology/Oncology Comment on above: Malignant neoplasm o f upper-outer quadrant of left breast in female, estrogen receptor positive (HCC) (Primary Dx) Start: 12-14-2021 End: 12-14-2021 Patient encounter procedure Effie Vaz APRN.HYDRO TECHNICIAN Work Phone: [facility] Start: 12-11-2021 End: 12-11-2021 Subsequent hospital visit by physician Screen Mammo [facility] Comment on above: Malignant neoplasm o f upper-outer quadrant of left breast in female, estrogen receptor positive (HCC) [C50.412, Z17.0] Start: 11-20-2021 ambulatory Gerardo healy MD Work Phone: [facility] Comment on above: Covid booster Start: 09-14-2021 End: 09-14-2021 Patient encounter procedure Myra Motley APRN.HYDRO TECHNICIAN Work Phone: [facility] Comment on above: Foreign body of righ t hand, initial encounter (Primary Dx) Start: 09-02-2020 Patient encounter procedure Myra Motley APRN.HYDRO TECHNICIAN Work Phone: [facility] Work Phone: Procedures Date Procedure Procedure Detail Performing Clinician Start: 01-05-2025 Us breast uni real t mikala with image limited Kike Saldana MD Work Phone: Start: 01-05-2025 Digital breast tomosynthesis bilateral Kike Saldana MD Work Phone: Start: 11-13-2024 MRI of lower extremity Dr. Gerardo Saleh MD Work Phone: Start: 10-06-2024 Adult depression scr eening assessment Lizeth Sifuentes APRN.HYDRO TECHNICIAN Work Phone: Start: 10-06-2024 Lipid 1996 panel - S lanette or Plasma Lizeth Sifuentes APRN.HYDRO TECHNICIAN Work Phone: Start: 04-01-2024 Radiological examina tion [...] t mikala with image limited Effie Vaz APRN.HYDRO TECHNICIAN Work Phone: Start: 01-29-2024 Digital breast tomosynthesis unilateral Effie Vaz APRN.HYDRO TECHNICIAN Work Phone: Start: 07-08-2023 MRI of lower [...] Phone: Start: 12-11-2021 MAVERICK SCREENING W LOIDA Mooney claire Vaz DYE PENETRANT TESTING TECHNICIAN.HYDRO TECHNICIAN Work Phone: Start: 12-11-2021 Mammography Screen Wst r Start: 03-24-2021 Antibody screen Comment on above: Performed By: #### T [id number] #### [facility] [address] [facility] [phone] Start: 12-19-2020 Colonoscopy Myra Motley DYE PENETRANT TESTING TECHNICIAN.HYDRO TECHNICIAN Work Phone: Start: 12-10-2020 Adult depression scr eening assessment Myra Motley DYE PENETRANT TESTING TECHNICIAN.HYDRO TECHNICIAN Work Phone: Start: 12-08-2020 Mammography Myra Motley DYE PENETRANT TESTING TECHNICIAN.HYDRO TECHNICIAN Work Phone: Plan of Treatment Date Care Activity Detail Author Start: 12-19-2030 Colonoscopy COLONOSCOPY [facility] Start: 12-19-2030 COLORECTAL CANCER SCREENING COLORECTAL CANCER SCREENING [facility] Start: 12-19-2030 Screening for malign ant neoplasm of colon [facility] Start: 10-06-2029 Lipid panel Lipid Screening [facility] Start: 05-15-2028 Lipid panel Lipid Screening [facility] Start: 10-07-2027 Diabetes Screening Diabetes Screenin [facility] Start: 07-01-2027 RSV Vaccine (1 - 1-d ose 75+ series) RSV Vaccine (1 - 1-dose 75+ series) [facility] Start: 03-17-2027 Diabetes Screening Diabetes Screenin g [facility] Start: 12-26-2026 Lipid 1996 panel - Serum or Plasma Lipid Screening [facility] Start: 12-26-2026 LIPID SCREEN LIPID SCREEN [facility] Start: 07-16-2026 Urine microalbumin profile [facility] Start: 06-18-2026 Screening for osteoporosis Bone Density Screening [facility] Start: 05-15-2026 Diabetes Screening Diabetes Screenin g [facility] Start: 01-05-2026 Screening for malign ant neoplasm of breast Mammogram Screening [facility] Start: 10-06-2025 Anxiety Screening Anxiety Screening [facility] Start: 10-06-2025 Depression Screening Depression Scre ening [facility] Start: 10-06-2025 Medicare Annual Wellness Visit Medicare Annual Wellness Visit [facility] Start: 09-02-2025 LIPID SCREEN LIPID SCREEN [facility] Start: 04-19-2025 End: 04-19-2025 Patient encounter procedure 04/19/2025 9:30 AM EST Office Visit [facility] Breast Surgery [address] [place] [address] [place] [address] Remington Sung MD [address] [facility] [place] [address] 6 month follow up [facility] Breast Surgery Comment on above: 6 month follow up Start: 02-18-2025 End: 02-18-2025 ambulatory 02/18/2025 9:00 AM EDT Visit (SP) Office Hematology/Oncology [address] [place], [place] [id number] Effie Vaz APRN.HYDRO TECHNICIAN [address] [place] [address] 4 MO OV Hematology/Oncology Comment on above: 4 MO OV Start: 01-05-2025 End: 01-05-2025 Patient encounter procedure Mammogram Comment on above: david diag mammo Comp- post RT 6 elisa h partial masectomy due for bilat Start: 01-03-2025 End: 11-13-2025 MG Breast - bilateral Diagnostic [facility] Radiology Routine 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) 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) Estrogen receptor positive status (ER+) Personal history of malignant neoplasm of breast Expected: 01/03/2025, Expires: 11/13/2025 [facility] Work Phone: Comment on above: Expected: 01/03/2025 , Expires: 11/13/2025 Start: 01-02-2025 Screening for malign ant neoplasm of breast Mammogram Screening [facility] Start: 12-28-2024 Influenza vaccination Influenza Vacc ine (#1) [facility] Start: 12-26-2024 DIABETES SCREEN DIABETES SCREEN [facility] Start: 12-26-2024 Diabetes Screening Diabetes Screeneileen g [facility] Start: 11-24-2024 End: 11-24-2024 Patient encounter procedure 11/24/2024 9:00 AM EDT Office Visit [facility] [address] [place], [place] [address] Lizeth Sifuentes, DYE PENETRANT TESTING TECHNICIAN.HYDRO TECHNICIAN [address] [place] [address] Pre Op Clearance; Left Total Knee [facility] 12/10/2024 [facility] Comment on above: Pre Op Clearance; Le ft Total Knee [facility] 12/10/2024 Start: 10-21-2024 End: 10-21-2024 ambulatory 10/21/2024 9:00 AM EDT Visit (SP) Office Hematology/Oncology [address] [place], [place] [phone] Effie Vaz APRN.HYDRO TECHNICIAN [address] [place] [address] 3 MO OV Hematology/Oncology Comment on above: 3 MO OV Start: 10-19-2024 End: 10-19-2024 Patient encounter procedure 10/19/2024 9:00 AM EDT Office Visit [facility] Breast Surgery [address] [place] [phone] Remington Sung MD [address] [place] [address] 4 moth follow up [facility] Breast Surgery Comment on above: 4 moth follow up Start: 10-06-2024 End: 01-05-2025 Hemoglobin A1c in Blood [facility] Work Phone: Comment on above: Expected: 10/06/2024 , Expires: 01/05/2025 Start: 07-14-2024 End: 07-14-2024 ambulatory Hematology/Oncology Comment on above: SCP 2MO OV* SCP * Start: 07-07-2024 End: 07-07-2024 Telephone follow-up 07/07/2024 10:00 AM [facility] Radiation Oncology [address] [place] [address] Juan Lopez MD [address] [place] [phone] phone follow up Radiation Oncology Comment on above: phone follow up Start: 06-22-2024 End: 06-22-2024 Patient encounter procedure 06/22/2024 10:00 AM EST Office Visit [facility] Breast Surgery [address] [place] [address] [place] [phone] Remington Sung MD [address] [facility] [place] [address] 1 month follow up [facility] Breast Surgery Comment on above: 1 month follow up Start: 06-18-2024 End: 06-18-2024 Patient encounter procedure 06/18/2024 2:15 PM EST Appointment Radiology [address] [place] [phone] [facility] Rad[facility] Comment on above: [facility] Start: 06-15-2024 End: 06-15-2024 Patient encounter procedure 06/15/2024 8:30 AM EST Office Visit [facility] Breast Surgery [address] [facility] [place] [phone] [place] [address] [place] [address] [place] [address] 1 month follow up [facility] Breast Surgery Comment on above: 1 month follow up Start: 06-12-2024 End: 06-12-2024 Patient encounter procedure 06/12/2024 9:30 AM EST Appointment Radiation Oncology [address] [place] [address] Location: [email or web address] Comment on above: Location: [facility] Start: 06-11-2024 End: 06-11-2024 Patient encounter procedure 06/11/2024 9:30 AM EST Appointment Radiation Oncology [address] [place] [address] Location: [email or web address] Comment on above: Location: [facility] Start: 06-10-2024 End: 06-10-2024 Patient encounter procedure 06/10/2024 9:30 AM EST Appointment Radiation Oncology [address] [place] [address] Location: [email or web address] Comment on above: Location: [facility] Start: 06-09-2024 End: 06-09-2024 Patient encounter procedure Radiation Oncology Comment on above: Location: [facility] Location: [facility] VIS[facility] Start: 06-08-2024 End: 06-08-2024 Patient encounter procedure 06/08/2024 9:30 AM EST Appointment Radiation Oncology [address] [place] [address] Location: [email or web address] Comment on above: Location: [facility] Start: 06-05-2024 End: 06-05-2024 Patient encounter procedure 06/05/2024 9:30 AM EST Appointment Radiation Oncology [address] [place] [address] Location: [email or web address] Comment on above: Location: [facility] Start: 06-04-2024 End: 06-04-2024 Patient encounter procedure 06/04/2024 9:30 AM EST Appointment Radiation Oncology [address] [place] [address] Location: [email or web address] Comment on above: Location: [facility] Start: 06-03-2024 End: 06-03-2024 Patient encounter procedure 06/03/2024 9:30 AM EST Appointment Radiation Oncology [address] [place] [address] Location: [email or web address] Comment on above: Location: [facility] Start: 06-02-2024 End: 06-02-2024 Patient encounter procedure Radiation Oncology Comment on above: Location: [facility] Location: W[facility]ON TREAT MENT VISIT Start: 06-01-2024 End: 06-01-2024 Patient encounter procedure 06/01/2024 9:30 AM EST Appointment Radiation Oncology [address] [place] [address] Location: [email or web address] Comment on above: Location: [facility] Start: 05-29-2024 End: 05-29-2024 Patient encounter procedure 05/29/2024 9:30 AM EST Appointment Radiation Oncology [address] [place] [address] Location: [email or web address] Comment on above: Location: [facility] Start: 05-28-2024 End: 05-28-2024 Patient encounter procedure 05/28/2024 9:30 AM EST Appointment Radiation Oncology [address] [place] [address] Location: [email or web address] Comment on above: Location: [facility] Start: 05-27-2024 End: 05-27-2024 Patient encounter procedure 05/27/2024 9:30 AM EST Appointment Radiation Oncology [address] [place] [address] Location: [email or web address] Comment on above: [...] Radiation Oncology [address] [place], [place] [phone] Wstr, Nurse Radt [facility] [address] [place] [address] Location: W[facility]NURSING Radiation Oncology Comment on above: Location: [facility] Start: 05-20-2024 End: 05-20-2024 Patient encounter procedure 05/20/2024 1:00 PM EST Appointment Radiation Oncology [address] [place], [place] [phone] Juan Lopez MD [address] [place], [place] [phone] Location: [email or web address] Comment on above: Location: [facility] Start: 05-14-2024 End: 08-13-2024 25-hydroxyvitamin D3 [Mass/volume] in Serum or Plasma [facility] Work Phone: Comment on above: Expected: 05/14/2024 , Expires: 08/13/2024 Start: 05-14-2024 End: 05-14-2024 ambulatory Hematology/Oncology Comment on above: 6-8 WEEK OV/SURG 12/ 4* 6-8 WEEK OV/SURG 12/ * 05/01 - keep appt for now. [place] per Dr. Masood HOLT Start: 05-07-2024 End: 05-07-2024 Patient encounter procedure 05/07/2024 10:30 AM EST Office Visit Radiation Oncology [address] [place], [place] [phone] Juan Lopez MD [address] [place], [place] [phone] NEW PT Radiation Oncology Comment on above: NEW PT Start: 05-04-2024 End: 05-04-2024 Patient encounter procedure 05/04/2024 9:30 AM EST Office Visit Radiation Oncology [address] [place], [place] [phone] Juan Lopez MD [address] [place], [place] [address] NEW PT Radiation Oncology Comment on above: NEW PT Start: 04-30-2024 End: 04-30-2024 Patient encounter procedure 04/30/2024 8:00 AM EST Office Visit [facility] Breast Surgery [facility] [place] [phone] Remington Sung MD [address] [place] [address] [place] [address] p/o lumpectomy 04/01 [facility] Breast Surgery Comment on above: p/o lumpectomy 04/01 Start: 04-29-2024 Advance Directive Discussion Advance Directive Discussion [facility] Start: 04-16-2024 End: 04-16-2024 ambulatory 04/16/2024 12:10 PM EST Visit (SP) Office Hematology/Oncology [address] [place], [place] [phone] Ibrahima Dhaliwal DO [address] [facility] [place], [place] [phone] OV* Hematology/Oncology Comment on above: OV* Start: 04-16-2024 End: 04-16-2024 ambulatory Hematology/Oncology Comment on above: CUFF CUTTER/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 [address] LUMPECTOMY BREAST [facility] Surgery Comment on above: LUMPECTOMY BREAST Start: [...] physician 04/01/2024 11:25 AM EST Hospital Encounter [facility] Surgery [address] [place] [address] [place] [address] Remington Sung MD [address] [place] [address] [place] [address] Malignant neoplasm of upper-outer 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, unspecified estrogen receptor status (HCC) [C50.411] [facility] Comment on above: Malignant neoplasm o f upper-outer 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, unspecified estrogen receptor status (HCC) [C50.411] Start: 04-01-2024 End: 04-01-2024 Patient encounter procedure [facility] Comment on above: Malignant neoplasm o f upper-outer 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, unspecified estrogen receptor status (HCC) [C50.411]Dr. Sung. Rt breast needle localization Start: 03-24-2024 DIABETES SCREEN DIABETES SCREEN [facility] Start: 03-23-2024 End: 03-23-2024 Nursing evaluation of patient and report 03/23/2024 11:00 AM EST Nurse Visit [facility] Breast Surgery [address] [place] [address] [place] [phone] Breast Surgery education with G[facility] Breast Surgery Comment on above: Breast Surgery [...] female breast (HCC) Expected: 03/09/2024, Expires: 06/08/2024 [facility] Comment on above: Expected: 03/09/2024 , [...] female breast (HCC) Expected: 03/09/2024, Expires: 06/08/2024 [facility] Comment on above: Expected: 03/09/2024 , [...] female breast (HCC) Expected: 03/09/2024, Expires: 06/08/2024 [facility] Comment on above: Expected: 03/09/2024 , Expires: 06/08/2024 Start: 02-03-2024 End: 02-03-2024 Patient encounter procedure 02/03/2024 1:45 PM EDT Office Visit General Surgery [address] [place] [address] Azra Meeks MD [address] [place] [phone] RT SIDE SOLID NODULE CONSULT General Surgery Comment on above: RT SIDE SOLID NODULE CONSULT Start: 01-29-2024 End: 01-29-2024 ambulatory 01/29/2024 11:30 AM EDT Visit (SP) Office Hematology/Oncology [address] [place] [address] Effie Vaz, DYE PENETRANT TESTING TECHNICIAN.HYDRO TECHNICIAN [address] [place] [address] 1 YR OV/DIAG MAMM EARLY* Hematology/Oncology Comment on above: 1 YR OV/DIAG MAMM EA RLY* Start: 01-29-2024 End: 01-29-2024 Patient encounter procedure Mammogram Comment on above: Comp- RT CB poss. as ym. right breast diag ma mm and us per mc Start: 01-08-2024 End: 01-08-2024 ambulatory 01/08/2024 8:30 AM EDT Visit (SP) Office Hematology/Oncology [address] [place] [address] Effie Vaz, DYE PENETRANT TESTING TECHNICIAN.HYDRO TECHNICIAN [address] [place] [address] 1 yr ov/ ov 9/6* Hematology/Oncology Comment on above: 1 yr ov/ ov 01/02* Start: 01-02-2024 Mammography [facility] Start: 01-02-2024 Screening for malign ant neoplasm of breast Mammogram Screening [facility] Start: 12-29-2023 COVID-19 (2023-2 5 season) COVID-19 ( season) [facility] Start: 12-29-2023 Covid-19 Vaccine ( season) Covid-19 Vaccine ( season) [facility] Start: 12-29-2023 Covid-19 Vaccine ( season) Covid-19 Vaccine () [facility] Start: 12-29-2023 FLU (#1) FLU (#1) [facility] Start: 12-29-2023 Influenza vaccination Influenza Vacc ine (#1) [facility] Start: 04-29-2023 Advance Directive Discussion Advance Directive Discussion [facility] Start: 04-29-2023 Depression Assessment Depression Ass essment [facility] Start: 04-26-2023 End: 07-26-2023 CBC W Auto Differential panel - Blood CBC + DIFF Lab Routine Medication management Expected: 04/26/2023, Expires: 07/26/2023 [facility] Work Phone: Comment on above: Expected: 04/26/2023 , Expires: 07/26/2023 Start: 04-26-2023 End: 07-26-2023 Comprehensive metabolic 2000 panel - Serum or Plasma COMP METABOLIC PANEL Lab Routine Elevated blood sugar Medication management Expected: 04/26/2023, Expires: 07/26/2023 [facility] Work Phone: Comment on above: Expected: 04/26/2023 , Expires: 07/26/2023 Start: 04-26-2023 End: 07-26-2023 Hemoglobin A1c in Blood HGB A1C Lab Routine Elevated blood sugar Expected: 04/26/2023, Expires: 07/26/2023 [facility] Work Phone: Comment on above: Expected: 04/26/2023 , Expires: 07/26/2023 Start: 04-26-2023 End: 07-26-2023 LIPID PANEL, NONFASTING LIPID PANEL, NONFASTING Lab Routine Encounter for lipid screening for cardiovascular disease Expected: 04/26/2023, Expires: 07/26/2023 [facility] Work Phone: Comment on above: Expected: 04/26/2023 , Expires: 07/26/2023 Start: 12-28-2022 Covid-19 Vaccine () Covid-19 Vaccine () [facility] Start: 12-28-2022 Influenza vaccination C [facility] Start: 12-26-2022 Adult depression screening assessment DEPRESSION SCREENING [facility] Start: 12-11-2022 Mammography MAMMOGRAM [facility] Start: 06-22-2022 Screening for osteoporosis Bone Density Screening [facility] Start: 05-30-2022 End: 02-01-2023 Diagnostic mammography computer-aided detcj uni [facility] Radiology Routine Abnormal mammogram Expected: 05/30/2022, Expires: 02/01/2023 [facility] Work Phone: Comment on above: Expected: 05/30/2022 , Expires: 02/01/2023 Start: 05-30-2022 End: 02-01-2023 Us breast uni real time with image limited US BREAST LTD LT Radiology Routine Abnormal mammogram Expected: 05/30/2022, Expires: 02/01/2023 [facility] Work Phone: Comment on above: Expected: 05/30/2022 , Expires: 02/01/2023 Start: 04-29-2022 ADVANCE DIRECTIVE DISCUSSION ADVANCE DIRECTIVE DISCUSSION [facility] Start: 04-29-2022 DEPRESSION ASSESSMENT DEPRESSION ASS ESSMENT [facility] Start: 12-28-2021 Influenza vaccination INFLUENZA (#1) [facility] Start: 12-26-2021 End: 02-25-2022 Comprehensive metabolic 2000 panel - Serum or Plasma [facility] Work Phone: Comment on above: Expected: 12/26/2021 , Expires: 02/25/2022 Start: 12-26-2021 End: 02-25-2022 Hemoglobin A1c in Blood [facility] Work Phone: Comment on above: Expected: 12/26/2021 , Expires: 02/25/2022 Start: 12-26-2021 End: 02-25-2022 LIPID PANEL, NONFASTING [facility] Work Phone: Comment on above: Expected: 12/26/2021 , Expires: 02/25/2022 Start: 12-26-2021 End: 02-25-2022 Thyrotropin [Units/volume] in Serum or Plasma [facility] Work Phone: Comment on above: Expected: 12/26/2021 , Expires: 02/25/2022 Start: 12-26-2021 End: 02-25-2022 Urinalysis complete panel - Urine URINALYSIS, WITH MICROSCOPIC Lab Routine Elevated blood sugar Encounter for lipid screening for cardiovascular disease Expected: 12/26/2021, Expires: 02/25/2022 [facility] Work Phone: Comment on above: Expected: 12/26/2021 , Expires: 02/25/2022 Start: 12-10-2021 Adult depression screening assessment DEPRESSION SCREENING [facility] Start: 12-08-2021 Mammography MAMMOGRAM [facility] Start: 07-02-2021 COVID-19 VACCINE (3 - Booster for Joce series) COVID-19 VACCINE (3 - Booster for Joce series) [facility] Start: 04-29-2021 ADVANCE DIRECTIVE DISCUSSION ADVANCE DIRECTIVE DISCUSSION [facility] Start: 04-29-2021 COVID-19 VACCINE (3 - Booster for Joce series) COVID-19 VACCINE (3 - Booster for Joce series) [facility] Start: 05-13-2015 Shingrix Vaccine (1 of 2) Shingrix Vaccine (1 of 2) [facility] Start: 05-13-2015 SHINGRIX VACCINE (2 of 3) SHINGRIX VACCINE (2 of 3) [facility] Start: 2012 RSV Vaccine (1 - 1-d ose 60+ series) RSV Vaccine (1 - 1-dose 60+ series) [facility] Start: 2012 RSV Vaccine (1 - Ris k 60-74 years 1-dose series) RSV Vaccine (1 - Risk 60-74 years 1-dose series) [facility] Start: 1997 COLOGUARD (FIT-DNA) COLOGUARD (FIT-D NA) [facility] Start: [address] COLONOGRAPHY [facility] Start: 1997 FECAL OCCULT BLOOD FECAL OCCULT BLOO D [facility] Start: 1997 Screening for malign ant neoplasm of colon [facility] Start: 1997 SIGMOIDOSCOPY SIGMOIDOSCOPY [facility] Start: 1973 Microscopic observat ion [Identifier] in Cervix by Cyto stain Pap Smear [facility] Start: 1970 Anxiety Screening Anxiety Screening [facility] Start: 1970 Depression Screening Depression Scre ening [facility] Start: 1968 MenB (1 of 2 - MenB 2-Dose Series Bexsero) MenB (1 of 2 - MenB 2-Dose Series Bexsero) [facility] Start: 1965 Varicella (1 of 2 - 13+ 2-dose series) Varicella (1 of 2 - 13+ 2-dose series) [facility] Start: 07-01-1959 Tetanus Diphtheria a nd Pertussis Vaccines (1 - Tdap) Tetanus Diphtheria and Pertussis Vaccines (1 - Tdap) [facility] Start: 1953 MMR (1 of 1 - Standa rd series) MMR (1 of 1 - Standard series) [facility] End: 06-13-2025 BD DXA TRABECULAR BONE SCORE (TBS) BD DXA TRABECULAR BONE SCORE (TBS) Radiology Routine History of vitamin D deficiency Disorder of bone, unspecified 1 Occurrences starting 05/14/2024 until 06/13/2025 [facility] Comment on above: 1 Occurrences starti ng 05/14/2024 until 06/13/2025 BD DXA TRABECULAR ISAIAS NE SCORE (TBS) BD DXA TRABECULAR BONE SCORE (TBS) Radiology Routine History of vitamin D deficiency Disorder of bone, unspecified 06/18/2024 2:35 PM EST [facility] CT Guidance for radiation treatment of Unspecified body region CT SIM PLANNING RADIATION ONCOLOGY Radiology Routine 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) Ordered: 06/11/2024 [facility] Work Phone: Comment on above: Ordered: 06/11/2024 DBT Breast - bilater al screening [facility] SCREENING W [facility] Radiology Routine Personal history of breast cancer Encounter for screening mammogram for high-risk patient 01/03/2024 8:32 AM EDT [facility] Work Phone: End: 12-28-2021 Diagnostic mammography computer-aided detcj uni [facility] Work Phone: Comment on above: 1 Occurrences starti ng 12/28/2021 until 12/28/2021 End: 01-27-2023 Diagnostic mammography computer-aided detcj uni [facility] Radiology Routine Abnormal ultrasound of breast 1 Occurrences starting 12/28/2021 until 01/27/2023 [facility] Work Phone: Comment on above: 1 Occurrences starti ng 12/28/2021 until 01/27/2023 End: 06-13-2025 DXA Skeletal system.axial Views for bone density DXA-AXIAL [place] Radiology Routine History of vitamin D deficiency Disorder of bone, unspecified 1 Occurrences starting 05/14/2024 until 06/13/2025 [facility] Comment on above: 1 Occurrences starti ng 05/14/2024 until 06/13/2025 DXA Skeletal system.axial Views for bone density DXA-AXIAL [place] Radiology Routine History of vitamin D deficiency Disorder of bone, unspecified 06/18/2024 2:35 PM EST [facility] Work Phone: End: 03-09-2025 ECG COMPLETE ECG COMPLETE ECG Routine 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) Estrogen receptor positive status (ER+) Personal history of malignant neoplasm of breast 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) 1 Occurrences starting 03/09/2024 until 03/09/2025 [facility] Comment on above: 1 Occurrences starti ng 03/09/2024 until 03/09/2025 End: 03-19-2024 Genetic Sendout: CancerNext-Expanded Panel with RNA [facility] Work Phone: Comment on above: 1 Occurrences starti ng 03/19/2024 until 03/19/2024 End: 11-22-2023 MAVERICK SCREENING W LOIDA [facility]ERICK SCREENING W [facility] Radiology Routine Malignant neoplasm of upper-outer quadrant of left breast in female, estrogen receptor positive (HCC) Encounter for screening mammogram for high-risk patient 1 Occurrences starting 10/23/2022 until 11/22/2023 [facility] Work Phone: Comment on above: 1 Occurrences starti ng 10/23/2022 until 11/22/2023 End: 02-03-2024 MAVERICK SCREENING W LOIDA [facility]ERICK SCREENING W LO[facility] Radiology Routine Personal history of breast cancer Encounter for screening mammogram for high-risk patient 1 Occurrences starting 01/04/2023 until 02/03/2024 [facility] Work Phone: Comment on above: 1 Occurrences starti ng 01/04/2023 until 02/03/2024 End: 02-04-2025 MG Breast - right Diagnostic for implant [facility] RIGHT Radiology Routine Malignant neoplasm of upper-outer quadrant of left breast in female, estrogen receptor positive (HCC) Abnormal mammogram of right breast 1 Occurrences starting 01/06/2024 until 02/04/2025 [facility] Work Phone: Comment on above: 1 Occurrences starti ng 01/06/2024 until 02/04/2025 SURGICAL PATHOLOGY SURGICAL PATH OLOGY Lab Routine Abnormal ultrasound of breast 12/28/2021 9:15 AM EDT [facility] Work Phone: End: 02-24-2024 SURGICAL PATHOLOGY SURGICAL PATHOLOGY Lab Routine ONCE for 1 Occurrences starting 02/24/2024 until 02/24/2024 [facility] Work Phone: Comment on above: ONCE for 1 Occurrenc es starting 02/24/2024 until 02/24/2024 End: 04-08-2025 US Axilla - right US AXILLA ONLY RIGHT Radiology Routine 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) Estrogen receptor positive status (ER+) Personal history of malignant neoplasm of breast 1 Occurrences starting 03/09/2024 until 04/08/2025 [facility] Work Phone: Comment on above: 1 Occurrences starti ng 03/09/2024 until 04/08/2025 End: 02-04-2025 US Breast - right limited US BREAST LTD RIGHT Radiology Routine Malignant neoplasm of upper-outer quadrant of left breast in female, estrogen receptor positive (HCC) Abnormal mammogram of right breast 1 Occurrences starting 01/06/2024 until 02/04/2025 [facility] Comment on above: 1 Occurrences starti ng 01/06/2024 until 02/04/2025 End: 03-04-2025 US Guidance for biopsy of Breast - right US BIOPSY BREAST RIGHT Radiology Routine History of left breast cancer Abnormal ultrasound of breast 1 Occurrences starting 02/03/2024 until 03/04/2025 [facility] Work Phone: Comment on above: 1 Occurrences [...] (HCC) 1 Occurrences starting 03/09/2024 until 04/08/2025 [facility] Comment on above: 1 Occurrences starti ng 03/09/2024 until 04/08/2025 XR Chest PA and Lateral XR CHEST 2V FRONTAL/LAT Radiology Routine 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) Estrogen receptor positive status (ER+) Personal history of malignant neoplasm of breast 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) 03/17/2024 3:06 PM [facility] Work Phone: [facility] Immunizations Immunization Date Immunization Notes Care Provider Fa [facility] 03-17-2024 influenza virus vacc ine, unspecified formulation Gerardo Saleh MD Work Phone: [facility] 02-16-2023 influenza (HD-IIV4) vaccine, age 65+ yr, high dose, quadrivalent, PF (FLUZONE HIGH-DOSE) Gerardo Saleh MD Work Phone: [facility] 02-16-2023 influenza virus vacc ine, unspecified formulation Screen Wstr [facility] 03-04-2021 COVID-19 vaccine, ag e 12+ yr ([employer] - PURPLE TOP) Myra Motley APRN.HYDRO TECHNICIAN Work Phone: [facility] 02-17-2021 influenza (HD-IIV4) vaccine, age 65+ yr, high dose, quadrivalent, PF (FLUZONE HIGH-DOSE) Gerardo Saleh MD Work Phone: [facility] 02-17-2021 influenza, high dose seasonal, preservative-free Myra Motley APRN.HYDRO TECHNICIAN Work Phone: [facility] 09-02-2020 pneumococcal polysaccharide vaccine, 23 valent Myra Motley APRN.HYDRO TECHNICIAN Work Phone: [facility] 07-07-2020 COVID-19 vaccine (JOCE) Myra Motley APRN.HYDRO TECHNICIAN Work Phone: [facility] Work Phone: 01-14-2020 influenza (HD-IIV4) vaccine, age 65+ yr, high dose, quadrivalent, PF (FLUZONE HIGH-DOSE) Gerardo Saleh MD Work Phone: [facility] 02-10-2019 influenza, high dose seasonal, preservative-free Myra James DYE PENETRANT TESTING TECHNICIAN.HYDRO TECHNICIAN Work Phone: [facility] 02-19-2018 pneumococcal conjuga te vaccine, 13 valent Myra James DYE PENETRANT TESTING TECHNICIAN.HYDRO TECHNICIAN Work Phone: [facility] 02-11-2018 influenza, high dose seasonal, preservative-free Myra Guicho DYE PENETRANT TESTING TECHNICIAN.HYDRO TECHNICIAN Work Phone: [facility] Work Phone: 05-10-2017 influenza, injectabl e, quadrivalent, preservative free Myra James DYE PENETRANT TESTING TECHNICIAN.HYDRO TECHNICIAN Work Phone: [facility] Work Phone: 07-16-2016 tetanus toxoid, redu noah diphtheria toxoid, and acellular pertussis vaccine, adsorbed Myra Guicho DYE PENETRANT TESTING TECHNICIAN.HYDRO TECHNICIAN Work Phone: [facility] 03-18-2015 zoster vaccine, live Herminia halee Guicho DYE PENETRANT TESTING TECHNICIAN.HYDRO TECHNICIAN Work Phone: [facility] Payers Date Payer Category Payer Self-pay [id number] 2019 Private Health Insurance MMO MED ICARE SUPPLEMENT [id number] 2019 Unknown MMO MMO MEDICARE SUPPLEMENT [id number] 2019-Present [phone] [address] [place] [address] Indemnity [id number] 2019 Unknown [id number] 2019 Unknown [id number] 2017 Medicare MEDICARE MEDICAR E A AND B [id number] 2017-Present [phone] [address] [address] [place] [address] Medicare [id number] 2017 Medicare [id number] 2017 Medicare [id number] 1950 Unknown [id number] 1950 Unknown [id number] 1950 Unknown [id number] Unknown [id number] Unknown [id number] Unknown [id number] Social History Date Type Detail Facility Start: 01-12-2016 End: 12-26-2021 Tobacco smoking status NHIS Never smoked tobacco [facility] Work Phone: Start: 01-12-2016 End: 12-26-2021 Tobacco use and exposure Smokeless tobacco non-user [facility] Work Phone: Start: 09-14-2021 End: 10-21-2024 Alcohol intake Current drinker of alcohol (finding) [facility] Start: 08-31-2020 End: 12-21-2021 History SDOH Alcohol Frequency 2 [facility] Start: 08-31-2020 End: 12-21-2021 History SDOH Alcohol Std Drinks 1 [facility] Start: 01-12-2016 History SDOH Alcohol Comment wine = 2/month [facility] Start: 08-31-2020 End: 12-21-2021 History SDOH Social Connections Phone 5 [facility] Start: 08-31-2020 End: 12-21-2021 History SDOH Social Connections Spiritism 3 [facility] Start: 08-31-2020 Education 12 [facility] Start: 1950 Sex Assigned At Female [facility] Start: 09-04-2021 End: 12-28-2021 Exposure to SARS-CoV-2 (event) Not sure [facility] Work Phone: Start: 12-21-2021 History SDOH Physical Activity DPW 6 [facility] Start: 12-21-2021 End: 01-01-2023 History of Social function [facility] Start: 12-21-2021 End: 01-01-2023 Social connection and isolation panel [facility] Do you belong to any clubs or organizations such as moravian groups, unions, fraternal or athletic groups, or school groups? Yes [facility] Are you now , , , , never or living with a partner? [facility] How often to you hav e a drink containing alcohol? Monthly or less [facility] How many standard dr inks containing alcohol do you have on a typical day? 1 or 2 [facility] How often do you hav e 6 or more drinks on 1 occasion? Never [facility] Start: 12-22-2015 How hard is it for you to pay for the very basics like food, housing, medical care, and heating Not hard at all [facility] Do you feel stress - tense, restless, nervous, or anxious, or unable to sleep at night because your mind is troubled all the time - these days [OSQ] Only a little [facility] (I/We) worried whecomfort er (my/our) food would run out before (I/we) got money to buy more. Never true [facility] In the past 12 month s, was there a time when you were not able to pay the mortgage or rent on time? No [facility] Start: 12-01-2019 Gender identity Identifies as female gender (finding) [facility] Start: 12-01-2019 Sexual orientation Heterosexual (finding) [facility] Start: 10-13-2020 End: 10-13-2020 Tobacco smoking status NHIS Unknown if ever smoked [facility] Are you now , , , , never or living with a partner? [facility] Do you feel stress - tense, restless, nervous, or anxious, or unable to sleep at night because your mind is troubled all the time - these days [OSQ] Not at all [facility] Start: 1950 Sex assigned at Not on file [facility] Clinical Notes 10-28-2020 to 02-18-2025 Sudarshan Hopkins Mammo Tech - 01/05/2025 9:00 AM Sonya Rodriguez RDMS - 01/05/2025 9:00 AM Lizeth Willis APRN.CNP - 11/24/2024 8:59 AM Fco Cruz LPN - 11/16/2024 7:41 AM EDT Note Date & Type Note Facility 02-18-2025 Note HNO ID: [id number] Author: EFFIE VAZ APRN.HANH Service: ? Author Type: Nurse Practitioner Type: Progress Notes Filed: 02/18/2025 09:31 Note Text: Chief Complaint Patient presents with: [...] nuclear grade 2. ER >90%, strong and NH 60%, weak to moderate. HER2 quantified at [...] biopsy for new right sided lobular carcinoma. 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 RAD[facility]ATION:05/25/24 - 06/12/24 Right breast Current therapy:Aromasin Began after radiation. No new concerns today. L tkr-Dr. Das. No complications. Appetite:Too good. Stable. Energy level:Good. Denies fevers or recent illness. Resp:denies cough or sob, occ. panchal with steps Cardiac:denies chest pain/palpitations GI:denies abd pain, n/v, moving bowels regularly :denies dysuria/hematuria Extrem:S/p L tkr 12/10/24-Dr. Das, denies new pain Endo:+hot flashes Maybe one per day. Probably more at night. Neuro:denies symptoms of neuropathy Skin:denies rashes/lesions Heme:denies bleeding The ROS is otherwise negative. Past medical history, appointments, medications, allergies reviewed. No changes. EXAM: BP 119/82 Pulse 93 Temp 36.5 ?C (97.7 ?F) (Temporal) Wt 86.7 kg (191 lb 2.2 oz) LMP 01/27/2003 SpO2 97% BMI 34.73 kg/m? APPEARANCE Well appearing, alert, in no acute distress, well-hydrated, well nourished. HEART RRR with normal S1 and S2, no murmurs LUNG clear to auscultation BREAST FEMALE no mass/nodule b/l LYMPH NODES No cervical [...] previous note: Assessment: -New pT1c(m) pNX M0 ER/NH positive, HER2 negative invasive lobular carcinoma of the right breast. -History of a pT1 (1.9 cm; grade 2; LVI+) pN1a MX ER/NH positive HER2 negative stage IIA invasive ductal [...] - Continue aromasin. - Mammogram ordered per surgeon. - Follow up with surgeon as scheduled. - After next visit plan to alt. every 6 months with surgeon. - Follow up in September 2025. - Pt. aware to call office with any questions/concerns. The patient indicates understanding of these issues and agrees with the plan. All documentation from previous visit of 10/21/24-Dr. Dhaliwal/myself was copied and pasted, documentation has been reviewed and edited as necessary for today's visit. Effie Vaz APRN.[facility] 01-05-2025 History of Presen t illness Narrative Radiology Service Progress Note PATIENT NAME: Love Pino DATE OF SERVICE: January 05, 2025 TIME: 9:26 AM PATIENT IDENTITY VERIFICATION COMPLETED USING TWO [...] PATIENT PRESENTS WITH AN IMPLANTABLE OR ATTACHED AGRICULTURAL TECHNICIAN: No RADIOLOGY DEPARTMENT: Mammography PERIPHERAL IV DATA: Not applicable SIGNED BY: Tessa Canseco January 05, 2025 9:26 AM documented in this encounter [facility] 01-05-2025 History of Presen t illness Narrative Radiology Service Progress Note PATIENT NAME: Love Pino DATE OF SERVICE: January 05, 2025 TIME: 3:16 PM PATIENT IDENTITY VERIFICATION COMPLETED USING TWO [...] PATIENT PRESENTS WITH AN IMPLANTABLE OR ATTACHED AGRICULTURAL TECHNICIAN: No RADIOLOGY DEPARTMENT: Ultrasound PERIPHERAL IV DATA: Not applicable SIGNED BY: Sonya Dillard RDMS RVT January 05, 2025 3:16 PM documented in this encounter [facility] 01-05-2025 Note HNO ID: [id number] Author: SONYA DILLARD RDMS Service: ? Author Type: Environmental Issues Instructor Type: Progress Notes Filed: 01/05/2025 15:16 Note Text: Radiology Service Progress Note PATIENT NAME: Love Pino DATE OF SERVICE: January 05, 2025 TIME: 3:16 PM PATIENT IDENTITY VERIFICATION COMPLETED USING TWO [...] PATIENT PRESENTS WITH AN IMPLANTABLE OR ATTACHED AGRICULTURAL TECHNICIAN: No RADIOLOGY DEPARTMENT: Ultrasound PERIPHERAL IV DATA: Not applicable SIGNED BY: Sonya Dillard RDMS Yesenia January 05, 2025 3:16 PM [facility] 01-05-2025 Note HNO ID: [id number] Author: SUDARSHAN HOPKINS Mammo Tech Service: ? Author Type: Demurrage Man Type: Progress Notes Filed: 01/05/2025 09:26 Note Text: Radiology Service Progress Note PATIENT NAME: Love Pino DATE OF SERVICE: January 05, 2025 TIME: 9:26 AM PATIENT IDENTITY VERIFICATION COMPLETED USING TWO [...] PATIENT PRESENTS WITH AN IMPLANTABLE OR ATTACHED AGRICULTURAL TECHNICIAN: No RADIOLOGY DEPARTMENT: Mammography PERIPHERAL IV DATA: Not applicable SIGNED BY: Tessa Canseco January 05, 2025 9:26 AM [facility] 11-24-2024 Note HNO ID: [id number] Author: LIZETH SIFUENTES APRN.HYDRO TECHNICIAN Service: ? Author Type: Nurse Practitioner Type: Progress Notes Filed: 11/24/2024 09:23 Note Text: Chief Complaint Patient presents with: Pre-Op Exam: Left knee replacement HPI Love Pino is a 74 year old female who presents here today for Above Complaints.. Patient presents for pre op exam. Past medical history, appointments, medications, allergies reviewed. [...] capsule by mouth once daily. LD 03/24 Qdycbzzo-Wozhufj-Zqov-Lutein tab Take 1 tablet by mouth once daily. LD 03/24 No current facility-administered medications on file prior to visit. Social History Social History Tobacco Use Smoking status: Never Smokeless tobacco: Never Vaping Use Vaping status: Never Used Substance Use Topics Alcohol use: Yes Comment: wine Drug use: Never Review of Symptoms REVIEW OF SYSTEMS SEE HPI EXAM: BP 129/76 Pulse 93 Wt 88 kg (194 lb 0.1 oz) LMP 01/27/2003 BMI 35.25 kg/m? General Appearance: Well appearing, alert, in no acute distress, well-hydrated, well nourished.. Lungs: Lungs clear to auscultation. No wheezing, rhonchi, rales.. Heart: RRR without murmur, gallop, or rubs. No ectopy. Peripheral Pulses: Normal. Health Maintenance List RSV Vaccine(1 - Risk 60-74 years 1-dose series) Never done Shingrix Vaccine(2 of 3) due on 05/13/2015 Mammogram Screening due on 01/02/2025 Influenza Vaccine(1) due on 12/28/2024 Depression Screening due on 10/06/2025 Anxiety Screening due on 10/06/2025 Medicare Annual Wellness Visit due on 10/06/2025 Bone Density Screening due on 06/18/2026 DTaP,Tdap,Td Vaccine(2 - Td or Tdap) due on 07/16/2026 Diabetes Screening due on 10/07/2027 Lipid Screening due on 10/06/2029 Colorectal Cancer Screening due on 12/19/2030 Advance Directive Discussion Completed Pneumococcal Vaccine: 50+ Completed Hepatitis C Screening Discontinu (more content not included)... [facility] 11-24-2024 History of Presen t illness Narrative Chief Complaint Patient presents with: Pre-Op Exam: Left knee replacement HPI Love Pino is a 74 year old female who presents here today for Above Complaints.. Patient presents for pre op exam. Past medical history, appointments, medications, allergies reviewed. [...] capsule by mouth once daily. LD 03/24 Vnjrrvmr-Twdsxmp-Bnvc-Lutein tab Take 1 tablet by mouth once daily. LD 03/24 No current facility-administered medications on file prior to visit. Social History Social History Tobacco Use Smoking status: Never Smokeless tobacco: Never Vaping Use Vaping status: Never Used Substance Use Topics Alcohol use: Yes Comment: wine </= 2/month Drug use: Never Review of Symptoms REVIEW OF SYSTEMS SEE HPI EXAM: BP 129/76 Pulse 93 Wt 88 kg (194 lb 0.1 oz) LMP 01/27/2003 BMI 35.25 kg/m General Appearance: Well appearing, alert, in no acute distress, well-hydrated, well nourished.. Lungs: Lungs clear to auscultation. No wheezing, rhonchi, rales.. Heart: RRR without murmur, gallop, or rubs. No ectopy. Peripheral Pulses: Normal. Health Maintenance List RSV Vaccine(1 - Risk 60-74 years 1-dose series) Never done Shingrix Vaccine(2 of 3) due on 05/13/2015 Mammogram Screening due on 01/02/2025 Influenza Vaccine(1) due on 12/28/2024 Depression Screening due on 10/06/2025 Anxiety Screening due on 10/06/2025 Medicare Annual Wellness Visit due on 10/06/2025 Bone Density Screening due on 06/18/2026 DTaP,Tdap,Td Vaccine(2 - Td or Tdap) due on 07/16/2026 Diabetes Screening due on 10/07/2027 Lipid Screening due on 10/06/2029 Colorectal Cancer Screening due on 12/19/2030 Advance Directive Discussion Completed Pneumococcal Vaccine: 50+ Completed Hepatitis C Screening Discontinued Data reviewed [facility] op [facility] 1. Pre-op chest exam - ICD9: V72.82, ICD10: Z01.811 Based on the patient's history, physical, functional status, and ACS risk score, he has an 0.4% chance of a serious adverse cardiac event. This is average risk for his age an the planned operation. The risk is below the recommended threshold for further evaluation. Therefore, I do not recommend further preoperative testing and he may proceed with the planned operation. I recommend this risk assessment be incorporated into the overall discussion on risks and benefits of this operation. Lizeth Sifuentes APRN.HYDRO TECHNICIAN documented in this encounter [facility] 11-16-2024 Note HNO ID: [id number] Author: FCO BENEDICT LPN Service: ? Author Type: LICENSED NURSE Type: Progress Notes Filed: 11/16/2024 07:41 Note Text: Scan on 11/14/2024 8:10 PM by Eric Mas PA-C: CT Scan [facility] 11-16-2024 History of Presen t illness Narrative Scan on 11/14/2024 8:10 PM by Eric Mas PA-C: CT Scan documented in this encounter [facility] 11-14-2024 Radiology Diagnostic study note [facility] Imaging Services [address] [place] [address] Extremity Lower without Contra MR#: [id number] Acct: [id number] Name: LOVE PINO Rep #: [id number] : 1950 F 74 From: Em Bella MD PCP: Dr. Gerardo Saleh MD Status: REG CLI Study:Extremity Lower without Contra Date of Exam: 11/13/24 Exam# [id number] Ordering Dr: Kira Das MD PROCEDURE: EXTREMITY LOWER WITHOUT CONTRA 11/13/2024 REASON FOR EXAM: UNILATERAL PRIMARY OSTEOARTHRITIS, LEFT KNEE TECHNIQUE: Left EXTREMITY LOWER WITHOUT CONTRA Coronal and Sagittal reconstruction series were provided. One or more dose reduction techniques were used (e.g., Automated exposure control, adjustment of the mA and/or kV according to patient size, use of iterative reconstruction technique. RADIATION DOSE SUMMARY: CTDlvol: 24.1 mGy DLP: 1235 mGycm COMPARISON: None FINDINGS: No displaced fracture or traumatic malalignment. Mild narrowing in the left hip joint. Jkrqwlmm-lu-eewwff narrowing in the medial compartment of the left knee with subchondral cystic change and tricompartmental osteophyte formation. Small left knee joint effusion. Plantar and Achilles heel spurs. Colonic diverticulosis. Prior hysterectomy. CT/Extremity Lower without Contra IMPRESSION: Jjfvgfav-br-reyrxz osteoarthritis of the left knee, worst in the medial compartment. Small left knee joint effusion. Reading Location: [facility] CC: Dr. Gerardo Saleh MD; Dr. Justin Das MD ~ Brim Pouncer: Signed [facility] 11-13-2024 Note HNO ID: [id number] Author: FCO BENEDICT LPN Service: ? Author Type: LICENSED NURSE Type: Progress Notes Filed: 11/13/2024 09:46 Note Text: Scan on 11/13/2024 8:27 AM by Provider, External, PA-C: Hematology Scan on 11/13/2024 9:34 AM by Provider, External, PA-C: Chemistry [facility] 11-13-2024 History of Presen t illness Narrative Scan on 11/13/2024 8:27 AM by ProviderEric PA-C: Hematology Scan on 11/13/2024 9:34 AM by ProviderEric PA-C: Chemistry documented in this encounter [facility] 10-21-2024 Note HNO ID: [id number] Author: EFFIE VAZ APRN.HYDRO TECHNICIAN Service: ? Author Type: Nurse Practitioner Type: [...] nuclear grade 2. ER >90%, strong and NH 60%, weak to moderate. HER2 quantified at [...] biopsy for new right sided lobular carcinoma. NGS/biomarkers/oil transport driver mutation analyses: [facility] genetic testing negative. [...] previous note: Assessment: -New pT1c(m) pNX M0 ER/NH positive, HER2 negative invasive lobular carcinoma of the right breast. 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 Effie Vaz APRN.[facility] 10-21-2024 History of Presen t illness Narrative [...] nuclear grade 2. ER >90%, strong and NH 60%, weak to moderate. HER2 quantified at [...] biopsy for new right sided lobular carcinoma. NGS/biomarkers/oil transport driver mutation analyses: [facility] genetic testing negative. [...] previous note: Assessment: -New pT1c(m) pNX M0 ER/NH positive, HER2 negative invasive lobular carcinoma of the right breast. -History of a pT1 (1.9 cm; grade 2; LVI+) pN1a MX ER/NH positive HER2 negative stage IIA invasive ductal [...] Effie Vaz APRN.HANH documented in this encounter [facility] 10-19-2024 Note HNO ID: [id number] Author: REMINGTON SUNG MD Service: ? Author Type: Physician Type: Progress Notes Filed: 10/19/2024 13:26 Note Text: October 19, 2024 Love Lindseyiser 1950 ELEM: Love is here today for her routine breast check. She is now 6 months out from a right partial mastectomy with radiation therapy. She is taking exemestane and tolerating it well. She is 9 years out from a left partial mastectomy with sentinel node biopsy, axillary node biopsy, radiation, and 5 years of Anastrozole therapy. She follows with her oncologist in [place]. She had genetic testing that was negative [...] capsule by mouth once daily. LD 03/24 Sagsmvzb-Bekuuti-Zbym-Lutein tab Take 1 tablet by mouth once [...] pain. No bloo (more content not included)... [facility] 10-19-2024 History of Presen t illness Narrative Images from the original note were not included. October 19, 2024 Love Pino 1950 ELEM: Love is here today for her routine breast check. She is now 6 months out from a right partial mastectomy with radiation therapy. She is taking exemestane and tolerating it well. She is 9 years out from a left partial mastectomy with sentinel node biopsy, axillary node biopsy, radiation, and 5 years of Anastrozole therapy. She follows with her oncologist in [place]. She had genetic testing that was negative [...] capsule by mouth once daily. LD 03/24 Czrlntid-Rrpfkqr-Gcca-Lutein tab Take 1 tablet by mouth once [...] Because she travels all the way from [place] she wonders if she could see me back in 6 months rather than 3. She does follow regularly with her oncologist locally and they do a thorough breast exam. I think it would certainly be reasonable to see her back in 6 months. She will be due for mammogram after 01/02/2025. We will arrange that. Remington Sung MD documented in this encounter [facility] 10-08-2024 Telephone encounter Note Pt notified and verbalized understanding Lakeshia Huynh MA [facility] 10-08-2024 Miscellaneous Notes Pt notified and verbalized understanding Lakeshia Huynh MA Please let patient know her cholesterol has improved and the rest of her labs are stable. documented in this encounter [facility] 10-08-2024 Telephone encounter Note Please let patient know her cholesterol has improved and the rest of her labs are stable. [facility] Work Phone: 10-06-2024 Note HNO ID: [id number] Author: LIZETH SIFUENTES APRN.CNP Service: ? Author Type: Nurse Practitioner Type: [...] Remington Sung MD (General Surgery) Lizeth Sifuentes APRN.HYDRO TECHNICIAN as Eligibility Supervisor (Family Medicine) Tiffany Ugarte PA-C as Eligibility Supervisor (Family Medicine) Medical/Family history review Reviewed and [...] Penicillin Anaphylaxis Sulf (more content not included)... [facility] 10-06-2024 History of Presen t illness Narrative [...] Remington Sung MD (General Surgery) Lizeth Sifuentes APRN.HYDRO TECHNICIAN as Eligibility Supervisor (Family Medicine) Tiffany Ugarte PA-C as Eligibility Supervisor (Family Medicine) Medical/Family history review Reviewed and [...] capsule by mouth once daily. LD 03/24 Njxkieik-Wqeasjk-Oznw-Lutein tab Take 1 tablet by mouth once [...] 3) due on 05/13/2015 Covid-19 Vaccine(3 - 2023- season) due on 12/29/2023 Advance Directive Discussion [...] Lizeth Sifuentes APRN.HANH documented in this encounter [facility] 10-06-2024 Instructions Lizeth Sifuentes APRN.CNP - 10/06/2024 8:44 AM EDT GUIDELINES FOR [...] foods from the protein group each week. [place] with main dishes made with beans or peas, nuts, soy and seafood. Eat seafood in place of meat or poultry twice a week. Include some fish that are higher in oils and low in mercury, such as salmon, trout and huerta. Milk (8 grams), yogurt (12 grams) and Croatian yogurt (18 grams) contain protein. Choose lean [...] and sodium Make these occasional treats only. [place] Instant Breakfast, mixed with milk, contains 13 grams of protein a serving. Screening schedule The following prevention plan is recommended: Depression Screening Never done Anxiety Screening Never done RSV Vaccine(1 - Risk 60-74 years 1-dose series) Never done Shingrix Vaccine(2 of 3) due on 05/13/2015 Covid-19 Vaccine( season) due on 12/29/2023 Advance Directive Discussion [...] review all the medicines you take, even plak-oyn-jfdtobz medicines. As you get older, the way [...] certain medical conditions. documented in this encounter [facility] 07-14-2024 Note HNO ID: [id number] Author: EFFIE VAZ APRN.CNP Service: ? Author Type: Nurse Practitioner Type: [...] nuclear grade 2. ER >90%, strong and NH 60%, weak to moderate. HER2 quantified at [...] biopsy for new right sided lobular carcinoma. NGS/biomarkers/oil transport driver mutation analyses: Shannan genetic testing negative. [...] previous note: Assessment: -New pT1c(m) pNX M0 ER/NH positive, HER2 negative invasive lobular carcinoma of the right breast. 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 Effie Vaz APRN.[facility] [place] 07-14-2024 History of Presen t illness Narrative [...] nuclear grade 2. ER >90%, strong and NH 60%, weak to moderate. HER2 quantified at [...] biopsy for new right sided lobular carcinoma. NGS/biomarkers/oil transport driver mutation analyses: Shannan genetic testing negative. [...] previous note: Assessment: -New pT1c(m) pNX M0 ER/NH positive, HER2 negative invasive lobular carcinoma of the right breast. 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 Effie Vaz APRN.CNP documented in this encounter [facility] 07-10-2024 Telephone encounter Note Will review with pt. at [facility] next week. Effie Vaz APRN.CNP [facility] Work Phone: 07-10-2024 Miscellaneous Notes Will review with pt. at [facility] next week. Effie Vaz APRN.CNP spoke with pt. Given information concerning DXA results. Information on Zometa mailed to pt. Pt. Would like for CUFF CUTTER to contact her to go over the results of the DXA ( interpret what her scores mean and where is in the spectrum of Osteoporosis) Irlanda Ramirez LPN DXA shows osteoporosis. Start q 6 month BMP/Zometa once gets dental clearance. Ibrahima Dhaliwal DO documented in this encounter [facility] 07-08-2024 Note HNO ID: [id number] Author: JUAN LOPEZ MD Service: ? Author Type: Physician Type: Progress Notes Filed: 07/08/2024 09:14 Note Text: AMBULATORY TELEPHONE VISIT Yanelijayson Duarte Odette has consented to this telephone encounter. Persons Present: patient Chief Complaint/Reason: Four week follow-up after radiation treatment HPI: Stage IA, pT1c (m), grade 2 invasive lobular carcinoma of the right breast s/p right breast lumpectomy on 03/30/24. It's ER positive (90%, strong), NH positive (95%, strong) and Her2 0. s/p [...] Time Spent: 10 minutes Juan Lopez MD [facility] 07-08-2024 History of Presen t illness Narrative AMBULATORY TELEPHONE VISIT Love Duarte Odette has consented to this telephone encounter. Persons Present: patient Chief Complaint/Reason: Four week follow-up after radiation treatment HPI: Stage IA, pT1c (m), grade 2 invasive lobular carcinoma of the right breast s/p right breast lumpectomy on 03/30/24. It's ER positive (90%, strong), NH positive (95%, strong) and Her2 0. s/p [...] Juan Lopez MD documented in this encounter [facility] 06-22-2024 Note HNO ID: [id number] Author: REMINGTON SUNG MD Service: ? Author [...] was discussed with the patient or authorized enrollment representative. The patient or authorized enrollment representative has agreed to proceed with the sensitive examination. (Sensitive examination includes inspection and/or palpation of the breasts, pelvis, prostate and anorectal regions) Remington Sung MD [facility] 06-22-2024 History of Presen t illness Narrative [...] was discussed with the patient or authorized enrollment representative. The patient or authorized enrollment representative has agreed to proceed with the sensitive examination. (Sensitive examination includes inspection and/or palpation of the breasts, pelvis, prostate and anorectal regions) Remington Sung MD documented in this encounter [facility] 06-22-2024 Telephone encounter Note spoke with pt. Given information concerning DXA results. Information on Zometa mailed to pt. Pt. Would like for CUFF CUTTER to contact her to go over the results of the DXA ( interpret what her scores mean and where is in the spectrum of Osteoporosis) Irlanda Ramirez LPN [facility] 06-22-2024 Telephone encounter Note DXA shows osteoporosis. Start q 6 month BMP/Zometa once gets dental clearance. Ibrahima Dhaliwal DO [facility] 06-18-2024 History of Presen t illness [...] PATIENT PRESENTS WITH AN IMPLANTABLE OR ATTACHED AGRICULTURAL TECHNICIAN: No RADIOLOGY DEPARTMENT: Bone Density PERIPHERAL IV DATA: Not applicable SIGNED BY: RT Sol(Nathalia) June 18, 2024 2:17 PM documented in this encounter [facility] 06-18-2024 Note HNO ID: [id number] Author: DYLAN BRICEÑO RT(Nathalia) Service: ? Author Type: Technologist Type: [...] PATIENT PRESENTS WITH AN IMPLANTABLE OR ATTACHED AGRICULTURAL TECHNICIAN: No RADIOLOGY DEPARTMENT: Bone Density PERIPHERAL IV DATA: Not applicable SIGNED BY: RT Sol(R) June 18, 2024 2:17 PM [facility] 06-12-2024 Note HNO ID: [id number] Author: AZALIA SALCEDO RN Service: ? Author [...] Time spent on patient education: 05 minutes. [facility] 06-12-2024 History of Presen t illness Narrative [...] education: 05 minutes. documented in this encounter [facility] 06-12-2024 History of Presen t illness Narrative LOVE PINO [id number] : 1950 06/12/2024 [facility] Department of Radiation Oncology RADIATION ONCOLOGY - COMPLETION NOTE DATE OF SIMULATION: 05/20/24 DATES OF TREATMENT: 05/25/24 - 06/12/24 UNIT: W_TRUEBEAM AREA TREATED: Right breast DISEASE: Stage IA, pT1c (m), grade 2 invasive lobular carcinoma of the right breast s/p right breast lumpectomy on 03/30/24. It's ER positive (90%, strong), NH positive (95%, strong) and Her2 0. DELIVERED [...] me. Staff Physician JUAN LOPEZ M.D. / 511:29 AM Electronically Signed cc: Gerardo Saleh [address] [place] [address] Ibrahima Dhaliwal [address] [facility] [address] documented in this encounter [facility] 06-12-2024 Note HNO ID: [id number] Author: JUAN LOPEZ MD Service: Radiation Oncology Author Type: Physician Type: Progress Notes Filed: 06/19/2024 11:29 Note Text: LOVE PINO. [id number] : 1950 06/12/2024 [facility] Department of Radiation Oncology RADIATION ONCOLOGY - COMPLETION NOTE DATE OF SIMULATION: 05/20/24 DATES OF TREATMENT: 05/25/24 - 06/12/24 UNIT: W_TRUEBEAM AREA TREATED: Right breast DISEASE: Stage IA, pT1c (m), grade 2 invasive lobular carcinoma of the right breast s/p right breast lumpectomy on 03/30/24. It's ER positive (90%, strong), NH positive (95%, strong) and Her2 0. DELIVERED DOSE: 4005 cGy in 15 fractions treating to the 100% isodose line with [id number] and 4 segmented gongora. ELAPSED TIME: 18 days. TOLERANCE/ RESPONSE: She has mild tenderness over the right breast nipple area. Mild erythema of the right breast. REMARKS: She tolerated radiation treatment well. Four week follow-up with me. Staff Physician JUAN LOPEZ M.D. / 511:29 AM Electronically Signed cc: Gerardo Saleh [address] [place] [address] Ibrahima Dhaliwal [address] [facility] [address] [facility] 06-12-2024 Note Education (LUNA) LOVE PINO ([id number]) 1950 F TXT Date Time Provider Department 06/12/24 JUAN LOPEZ Reason for Visit: Patient Education [91] During your visit today, we recorded the following information about you: Allergies As of Date: 06/12/2024 Noted Allergy Reaction PENICILLIN 01/12/2016 10 - Anaphylaxis SULFA (SULFONAMIDE ANTIBIOTICS) 01/12/2016 9 - Itching Date Reviewed: 06/09/2024 Reviewed by: Bryanna Siu RN - Fully Assessed Prescriptions as of 06/12/2024 [...] 1-2 tablets by mouth once daily. 03/24 - Cholecalciferol, Vitamin D3, 50 mcg (2,000 unit) cap Take 1 capsule by mouth once daily. 03/24 - Tcrnmexg-Ypsonqa-Eouj-Lutein tab Take 1 tablet by mouth once daily. 03/24 Encounter Status:Closed by AZALIA SALCEDO on 06/12/24 [facility] 06-09-2024 Note HNO ID: [id number] Author: JUAN LOPEZ MD Service: ? Author Type: Physician Type: Progress Notes Filed: 06/09/2024 10:13 Note Text: Radiation Oncology - On Treatment Review (OTR) Note PATIENT NAME: Love Pino PATIENT DIAGNOSIS: Stage IA, pT1c (m), grade 2 invasive lobular carcinoma of the right breast s/p right breast lumpectomy on 03/30/24. It's ER positive (90%, strong), NH positive (95%, strong) and Her2 0. COURSE: [...] radiation treatment as planned. Juan Lopez MD [facility] 06-09-2024 History of Presen t illness Narrative Radiation Oncology - On Treatment Review (OTR) Note PATIENT NAME: Love Pino PATIENT DIAGNOSIS: Stage IA, pT1c (m), grade 2 invasive lobular carcinoma of the right breast s/p right breast lumpectomy on 03/30/24. It's ER positive (90%, strong), NH positive (95%, strong) and Her2 0. COURSE: [...] NAME: Love Pino PATIENT June 09, 2024 [facility]LOCATION: [place] NURSING NOTE TYPE: BREAST Subjective Data see pain assessment, also some headache Additional Data Do you want to see a Mill Set Up? No Status: Post-menopausal. Stress Scale: On a scale of 0 to 10, what number best describes how much distress you have experienced in the past week?(0 being no distress and 10 being extreme distress) 1 Social work notified: Pt denied need to see social services director at this time. Nursing Assessment Fatigue: increased [...] Bryanna Siu RN documented in this encounter [facility] 06-09-2024 Note HNO ID: [id number] Author: BRYANNA SIU RN Service: ? Author Type: Registered Nurse Type: Progress Notes Filed: 06/09/2024 10:13 Note Text: Radiation Therapy - Nursing Note (OTV) PATIENT NAME: Love Pino PATIENT June 09, 2024 [facility]: [facility] NOTE TYPE: BREAST Subjective Data see pain assessment, also some headache Additional Data Do you want to see a Mill Set Up? No Status: Post-menopausal. Stress Scale: On a scale of 0 to 10, what number best describes how much distress you have experienced in the past week?(0 being no distress and 10 being extreme distress) 1 Social work notified: Pt denied need to see social services director at this time. Nursing Assessment Fatigue: increased [...] swelling? No. SIGNED by: Bryanna Siu RN [facility] 06-02-2024 Note HNO ID: [id number] Author: JUAN LOPEZ MD Service: ? Author Type: Physician Type: Progress Notes Filed: 06/02/2024 09:40 Note Text: Radiation Oncology - On Treatment Review (OTR) Note PATIENT NAME: Love Pino PATIENT DIAGNOSIS: Stage IA, pT1c (m), grade 2 invasive lobular carcinoma of the right breast s/p right breast lumpectomy on 03/30/24. It's ER positive (90%, strong), NH positive (95%, strong) and Her2 0. COURSE: [...] radiation treatment as planned. Juan Lopez MD [facility] 06-02-2024 History of Presen t illness Narrative Radiation Oncology - On Treatment Review (OTR) Note PATIENT NAME: Love Pino PATIENT DIAGNOSIS: Stage IA, pT1c (m), grade 2 invasive lobular carcinoma of the right breast s/p right breast lumpectomy on 03/30/24. It's ER positive (90%, strong), NH positive (95%, strong) and Her2 0. COURSE: [...] NAME: Love Pino PATIENT June 02, 2024 [facility]: [place] NURSING NOTE TYPE: BREAST Subjective Data some tenderness in right nipple area Additional Data Do you want to see a Mill Set Up? No Status: Post-menopausal. Stress Scale: On a scale of 0 to 10, what number best describes how much distress you have experienced in the past week?(0 being no distress and 10 being extreme distress) 2 Social work notified: Pt denied need to see social services director at this time. Nursing Assessment Fatigue: increased [...] Bryanna Siu RN documented in this encounter [facility] 06-02-2024 Note HNO ID: [id number] Author: BRYANNA SIU RN Service: ? Author Type: Registered Nurse Type: Progress Notes Filed: 06/02/2024 09:40 Note Text: Radiation Therapy - Nursing Note (OTV) PATIENT NAME: Love Pino PATIENT June 02, 2024 [facility]: [facility] NOTE TYPE: BREAST Subjective Data some tenderness in right nipple area Additional Data Do you want to see a Mill Set Up? No Status: Post-menopausal. Stress Scale: On a scale of 0 to 10, what number best describes how much distress you have experienced in the past week?(0 being no distress and 10 being extreme distress) 2 Social work notified: Pt denied need to see social services director at this time. Nursing Assessment Fatigue: increased [...] swelling? No. SIGNED by: Bryanna Siu RN [facility] 05-26-2024 Note HNO ID: [id number] Author: JUAN LOPEZ MD Service: ? Author Type: Physician Type: Progress Notes Filed: 05/26/2024 09:50 Note Text: Radiation Oncology - On Treatment Review (OTR) Note PATIENT NAME: Love Pino PATIENT DIAGNOSIS: Stage IA, pT1c (m), grade 2 invasive lobular carcinoma of the right breast s/p right breast lumpectomy on 03/30/24. It's ER positive (90%, strong), NH positive (95%, strong) and Her2 0. COURSE: [...] radiation treatment as planned. Juan Lopez MD [facility] 05-26-2024 History of Presen t illness Narrative Radiation Oncology - On Treatment Review (OTR) Note PATIENT NAME: Love Pino PATIENT DIAGNOSIS: Stage IA, pT1c (m), grade 2 invasive lobular carcinoma of the right breast s/p right breast lumpectomy on 03/30/24. It's ER positive (90%, strong), NH positive (95%, strong) and Her2 0. COURSE: [...] NAME: Love Pino PATIENT May 26, 2024 [facility]: [place] NURSING NOTE TYPE: BREAST Subjective Data no complaints Additional Data Do you want to see a Mill Set Up? No Status: Post-menopausal. Stress Scale: On a scale of 0 to 10, what number best describes how much distress you have experienced in the past week?(0 being no distress and 10 being extreme distress) 1 Social work notified: Pt denied need to see social services director at this time. Nursing Assessment Fatigue: none [...] Bryanna Siu RN documented in this encounter [facility] 05-26-2024 Note HNO ID: [id number] Author: BRYANNA SIU RN Service: ? Author Type: Registered Nurse Type: Progress Notes Filed: 05/26/2024 09:50 Note Text: Radiation Therapy - Nursing Note (OTV) PATIENT NAME: Love Pino PATIENT May 26, 2024 [facility]: [facility] NOTE TYPE: BREAST Subjective Data no complaints Additional Data Do you want to see a Mill Set Up? No Status: Post-menopausal. Stress Scale: On a scale of 0 to 10, what number best describes how much distress you have experienced in the past week?(0 being no distress and 10 being extreme distress) 1 Social work notified: Pt denied need to see social services director at this time. Nursing Assessment Fatigue: none [...] swelling? No. SIGNED by: Bryanna Siu RN [facility] 05-20-2024 Note HNO ID: [id number] Author: BRYANNA SIU RN Service: ? Author Type: Registered Nurse Type: Progress Notes Filed: 05/20/2024 14:43 Note Text: Radiation Therapy - Patient Education Note PATIENT NAME: Love Pino PATIENT May 20, 2024 [facility]: [place] READINESS TO LEARN Cognitive Ability: Alert and [...] need for social work, van service, and safety leader. Patient has an Onbody or Implanted device: No Signed by: Bryanna Siu RN [facility] 05-20-2024 History of Presen t illness Narrative Radiation Therapy - Patient Education Note PATIENT NAME: Love Pino PATIENT May 20, 2024 [facility]: [place] READINESS TO LEARN Cognitive Ability: Alert and [...] need for social work, van service, and safety leader. Patient has an Onbody or Implanted device: No Signed by: Bryanna Siu RN documented in this encounter [facility] 05-20-2024 History of Presen t illness Narrative LOVE PINO [id number] 05/20/2024 [facility] Department of Radiation Oncology Treatment Planning Note [...] Electronically Signed Juan Lopez M.D. :19 PM documented in this encounter [facility] 05-20-2024 History of Presen t illness Narrative LOVE PINO [id number] 05/20/2024 [facility] Department of Radiation Oncology [facility] RADIATION ONCOLOGY SIMULATION NOTE DATE OF SIMULATION: 05/20/2024 MACHINE: Siemens Definition CT Simulator Diagnosis: Stage IA, pT1c (m), grade 2 invasive lobular carcinoma of the right breast s/p right breast lumpectomy on 03/30/24. It's ER positive (90%, strong), NH positive (95%, strong) and Her2 0. AREA:Right [...] Electronically Signed Juan Lopez M.D./fabiola :18 PM documented in this encounter [facility] 05-20-2024 Note HNO ID: [id number] Author: JUAN LOPEZ MD Service: Radiation Oncology Author Type: Physician Type: Progress Notes Filed: 05/21/2024 15:18 Note Text: LOVE PINO [id number] 05/20/2024 [facility] Department of Radiation Oncology [facility] RADIATION ONCOLOGY SIMULATION NOTE DATE OF SIMULATION: 05/20/2024 MACHINE: Moleculin Definition CT Simulator Diagnosis: Stage IA, pT1c (m), grade 2 invasive lobular carcinoma of the right breast s/p right breast lumpectomy on 03/30/24. It's ER positive (90%, strong), NH positive (95%, strong) and Her2 0. AREA:Right [...] Electronically Signed Juan Lopez M.D./fabiola 53:18 PM [facility] 05-20-2024 Note HNO ID: [id number] Author: JUAN LOPEZ MD Service: Radiation Oncology Author Type: Physician Type: Progress Notes Filed: 05/21/2024 15:19 Note Text: LOVE PINO [id number] 05/20/2024 [facility] Department of Radiation Oncology Treatment Planning Note [...] treating to the 100% isodose line with [id number] and 4 segmented gongora. Custom MLC asym jaws were the treatment device(s) used to shape/modify the beams. Limiting dose to normal tissue was confirmed upon review of the calculated dose volume histogram. A completed summary of this plan dated 05/21/2024 incorporated herein by reference includes dose, beam arrangements, energy, blocking, isodose distribution, and/or ports and DVH. Electronically Signed Juan Lopez M.D. 53:19 PM [facility] 05-14-2024 Telephone encounter Note Filed. [facility] 05-14-2024 Miscellaneous Notes Filed. Order pended earlier today under OV. Please file. Lesvia Girard LPN Patient called to schedule Bone Density. Please place order if needed. documented in this encounter [facility] 05-14-2024 Telephone encounter Note Order pended earlier today under OV. Please file. Lesvia Girrad LPN [facility] 05-14-2024 Telephone encounter Note Patient called to schedule Bone Density. Please place order if needed. [facility] Work Phone: 05-14-2024 Note HNO ID: [id number] Author: IBRAHIMA DHALIWAL DO Service: ? Author Type: Physician Type: [...] nuclear grade 2. ER >90%, strong and NH 60%, weak to moderate. HER2 quantified at [...] acute distress. EYES: Sclerae are anicteric bilaterally. NGS/biomarkers/oil transport driver mutation analyses: Ambry genetic testing negative. ASSESSMENT/PLAN: (C50.412) Breast cancer of upper-outer quadrant of left female breast (HCC) (primary encounter diagnosis) Assessment: -New pT1c(m) pNX M0 ER/NH positive, HER2 negative invasive lobular carcinoma of the right breast. -History of a pT1 (1.9 cm; grade 2; LVI+) pN1a MX ER/NH positive HER2 negative stage IIA invasive ductal [...] which included preparing to see the patient, [id number] patient care, completing clinical documentation, counseling and educating the patient/family/caregiver, ordering medications, tests, or procedures, communicating with other HCPs (not separately reported), and communicating results to the patient/family/caregiver. Ibrahima Dhaliwal DO [facility] 05-14-2024 History of Presen t illness Narrative [...] nuclear grade 2. ER >90%, strong and NH 60%, weak to moderate. HER2 quantified at [...] acute distress. EYES: Sclerae are anicteric bilaterally. NGS/biomarkers/oil transport driver mutation analyses: Shannan genetic testing negative. ASSESSMENT/PLAN: (C50.412) Breast cancer of upper-outer quadrant of left female breast (HCC) (primary encounter diagnosis) Assessment: -New pT1c(m) pNX M0 ER/NH positive, HER2 negative invasive lobular carcinoma of the right breast. -History of a pT1 (1.9 cm; grade 2; LVI+) pN1a MX ER/NH positive HER2 negative stage IIA invasive ductal [...] which included preparing to see the patient, [id number] patient care, completing clinical documentation, counseling and educating the patient/family/caregiver, ordering medications, tests, or procedures, communicating with other HCPs (not separately reported), and communicating results to the patient/family/caregiver. Ibrahima hDaliwal DO Est. Pt. 6-8 week F/U Irlanda Ramirez LPN documented in this encounter [facility] 05-14-2024 Note HNO ID: [id number] Author: IRLANDA RAMIREZ LPN Service: ? Author Type: LICENSED NURSE Type: Progress Notes Filed: 05/14/2024 16:07 Note Text: Est. Pt. 6-8 week F/U Irlanda Ramirez LPN [facility] 05-13-2024 Note HNO ID: [id number] Author: GIANA VELASCO RN Service: ? Author [...] Primary reason for presentation: Treatment options Stage: [id number] Pathway discussed: NCCN Guidelines Clinical trial discussion: Yes discussion was held no trials at this time. Genetics discussion: Yes discussion was held, patient had genetic testing completed. Discussion / recommendations: After review and discussion of patient presentation, the following thoughts / recommendations were made. In 2015, the patient was diagnosed with breast cancer. She had a lumpectomy with radiation and completed 5 years of anastrozole. On 04/01/24, she was found to have 2 foci of invasive lobular carcinoma ER/NH+; HER2 -. She proceeded with a lumpectomy that showed negative margins. Due to oncotype score of 16, it is not felt chemotherapy is needed. It is recommended that she proceed with AI therapy. She will be following up with her oncologist Dr Dhaliwal in [place] and was also referred to radiation oncology in [place]. She has a good support system. No dietary or social needs at this time. This abstract and interpretation of the conversation at tumor board has been completed by Giana Velasco RN, BSN, OCN. The final recommendations / treatment plan will be made by the patient's primary health care team and patient, after full discussion as appropriate. [facility] 05-07-2024 Note HNO ID: [id number] Author: AZALIA SALCEDO RN Service: ? Author Type: Registered Nurse Type: Progress Notes Filed: 05/11/2024 16:08 Note Text: Radiation Therapy - Nursing Note (Consult) PATIENT NAME: Love Pino PATIENT May 07, 2024 [facility]: [place] Chief Complaint: consult Reason for visit: Consult. Referring physician: Internal provider Dr Dhaliwal Subjective Data: no complaints Additional Data Do you want to see a Mill Set Up? No Are you interested in information about fertility? No Status: History of hysterectomy Stress Scale: On a scale of 0 to 10, what number best describes how much distress you have experienced in the past week?(0 being no distress and 10 being extreme distress) 1 Social work notified: no SIGNED by: Azalia Salcedo RN [facility] 05-07-2024 History of Presen t illness Narrative Radiation Therapy - Nursing Note (Consult) PATIENT NAME: Love Pino PATIENT May 07, 2024 [facility]: [place] Chief Complaint: consult Reason for visit: Consult. Referring physician: Internal provider Dr Dhaliwal Subjective Data: no complaints Additional Data Do you want to see a Mill Set Up? No Are you interested in information about [...] on 03/30/24. It's ER positive (90%, strong), NH positive (95%, strong) and Her2 0. HPI: [...] node dissection. It's ER positive (>90%, strong), NH positive (week to moderate, 60%) and Her2/garry [...] lobular carcinoma. It's ER positive (90%, strong), NH positive (95%, strong) and Her2 0. Right [...] capsule by mouth once daily. LD 03/24 Hilnuytj-Gnfvbyu-Uzas-Lutein tab Take 1 tablet by mouth once [...] on 03/30/24. It's ER positive (90%, strong), NH positive (95%, strong) and Her2 0. She [...] that other personnel such as radiation therapists, auto body worker, and physicists will participate in planning and delivery of radiation treatment. Permanent tattoo oneill will be placed to aid with positioning for daily treatment and the patient consented. Patient will have a simulation procedure after she heals from surgery. Thank you very much for allowing us to participate in her care. Signed by: Juan Lopez MD cc: Gerardo Saleh [address] [place] [address] Ibrahima Dhaliwal [address] [facility] [id number] documented in this encounter [facility] 05-07-2024 Note HNO ID: [id number] Author: JUAN LOPEZ MD Service: ? Author Type: Physician Type: Progress Notes Filed: 05/11/2024 16:08 Note Text: Radiation Oncology - New Patient/Consult Note PATIENT NAME: Love Pino PATIENT REQUESTING PROVIDER: Dr. Ibrahima Dhaliwal DIAGNOSIS: Stage IA, pT1c (m), grade 2 invasive lobular carcinoma of the right breast s/p right breast lumpectomy on 03/30/24. It's ER positive (90%, strong), NH positive (95%, strong) and Her2 0. HPI: [...] node dissection. It's ER positive (>90%, strong), NH positive (week to moderate, 60%) and Her2/garry [...] lobular carcinoma. It's ER positive (90%, strong), NH positive (95%, strong) and Her2 0. Right [...] capsule by mouth once daily. LD 03/24 Pirtibna-Riskcxb-Xsnq-Lutein tab Take 1 tablet by mouth once [...] Father Heart Fat (more content not included)... [facility] 05-07-2024 Telephone encounter Note ----- Message from Remington Sung MD sent at 05/07/2024 8:40 AM EST ----- Will you please let her know that her Oncotype score came back low, so I do not believe she will need chemotherapy. Great news. Patient verbalized understanding [facility] 05-07-2024 Miscellaneous Notes ----- Message from Remington Sung MD sent at 05/07/2024 8:40 AM EST ----- Will you please let her know that her Oncotype score came back low, so I do not believe she will need chemotherapy. Great news. Patient verbalized understanding documented in this encounter [facility] 05-07-2024 Telephone encounter Note Patient aware of all information. Lesvia Girard LPN [facility] 05-07-2024 Miscellaneous Notes Patient aware of [...] Ibrahima Dhaliwal DO documented in this encounter [facility] 05-07-2024 Telephone encounter Note Can let her know the Oncotype test showed there is no indication for chemotherapy. She should keep her consultation appointment with Dr. Lopez. I would still like to see her for her scheduled follow-up visit with me this month to review the test in detail and discuss plan for treatment following radiation. Ibrahima Dhaliwal DO [facility] Work Phone: 04-30-2024 Note HNO ID: [id number] Author: REMINGTON SUNG MD Service: ? Author Type: Physician Type: Progress Notes Filed: 04/30/2024 09:18 Note Text: Subjective: She is here for her first postoperative visit after a right partial mastectomy on 04/01/2024. She had clinically and radiologically negative nodes and because of her favorable tumor characteristics and her age we did not sample nodes. Her margins were clear. They did see 2 pmdm-cx-luht lesions measuring 1.1 and 0.7 cm respectively. [...] discussed with the Patient or Patient's Authorized Tempering Oven Operator. As applicable, any other physician, advance practice provider, medical student, or other health professional student that will be observing or involved in the sensitive examination for educational or training purposes was discussed with the Patient or Authorized Tempering Oven Operator. The Patient or Authorized Tempering Oven Operator has agreed to proceed with the sensitive examination. (Sensitive examination includes inspection and/or palpation of the breasts, pelvis, prostate and anorectal regions) Remington Sung MD [facility] 04-30-2024 History of Presen t illness Narrative Subjective: She is here for her first postoperative visit after a right partial mastectomy on 04/01/2024. She had clinically and radiologically negative nodes and because of her favorable tumor characteristics and her age we did not sample nodes. Her margins were clear. They did see 2 zuvh-aj-dyee lesions measuring 1.1 and 0.7 cm respectively. [...] discussed with the Patient or Patient's Authorized Tempering Oven Operator. As applicable, any other physician, advance practice provider, medical student, or other health professional student that will be observing or involved in the sensitive examination for educational or training purposes was discussed with the Patient or Authorized Tempering Oven Operator. The Patient or Authorized Tempering Oven Operator has agreed to proceed with the sensitive examination. (Sensitive examination includes inspection and/or palpation of the breasts, pelvis, prostate and anorectal regions) Remington Sung MD documented in this encounter [facility] 04-16-2024 Note HNO ID: [id number] Author: IBRAHIMA DHALIWAL, DO Service: ? Author [...] nuclear grade 2. ER >90%, strong and NH 60%, weak to moderate. HER2 quantified at [...] discussed with the Patient or Patient's Authorized Tempering Oven Operator. As applicable, any other physician, advance practice provider, medical student, or other health professional student that will be observing or involved in the sensitive examination for educational or training purposes was discussed with the Patient or Authorized Tempering Oven Operator. The Patient or Authorized Tempering Oven Operator has agreed to proceed with the sensitive examination. (Sensitive examination includes inspection and/or palpation of the breasts, pelvis, prostate and anorectal regions) Lesvia Girard LPN chaperonegilma. PHYSICAL EXAM: Vitals: Blood pressure 113/78, pulse [...] No sign of infection. No axillary adenopathy. NGS/biomarkers/oil transport driver mutation analyses: [facility] genetic testing negative. ASSESSMENT/PLAN: (C50.412) Breast cancer of upper-outer quadrant of left female breast (HCC) (primary encounter diagnosis) Assessment: -New pT1c(m) pNX M0 ER/NH positive, HER2 negative invasive lobular carcinoma of the right breast. -History of a pT1 (1.9 cm; grade 2; LVI+) pN1a MX ER/NH positive HER2 negative stage IIA invasive ductal [...] the potential benefi (more content not included)... [facility] 04-16-2024 History of Presen t illness Narrative [...] nuclear grade 2. ER >90%, strong and NH 60%, weak to moderate. HER2 quantified at [...] discussed with the Patient or Patient's Authorized Tempering Oven Operator. As applicable, any other physician, advance practice provider, medical student, or other health professional student that will be observing or involved in the sensitive examination for educational or training purposes was discussed with the Patient or Authorized Tempering Oven Operator. The Patient or Authorized Tempering Oven Operator has agreed to proceed with the sensitive examination. (Sensitive examination includes inspection and/or palpation of the breasts, pelvis, prostate and anorectal regions) Lesvia Girard, DATA ANALYTICS ANALYST chaperoned. PHYSICAL EXAM: Vitals: Blood pressure 113/78, [...] No sign of infection. No axillary adenopathy. NGS/biomarkers/oil transport driver mutation analyses: [facility] genetic testing negative. ASSESSMENT/PLAN: (C50.412) Breast cancer of upper-outer quadrant of left female breast (HCC) (primary encounter diagnosis) Assessment: -New pT1c(m) pNX M0 ER/NH positive, HER2 negative invasive lobular carcinoma of the right breast. -History of a pT1 (1.9 cm; grade 2; LVI+) pN1a MX ER/NH positive HER2 negative stage IIA invasive ductal [...] which included preparing to see the patient, hlmc-hu-gujb patient care, completing clinical documentation, obtaining and/or reviewing separately obtained history, performing a medically appropriate examination, counseling and educating the patient/family/caregiver, communicating with other HCPs (not separately reported), and communicating results to the patient/family/caregiver. Ibrahima Dhaliwal DO documented in this encounter [facility] 04-15-2024 Note HNO ID: [id number] Author: EDWIN MOTLEY MA Service: ? Author Type: Kitchen Assistant Type: Progress Notes Filed: 04/15/2024 16:16 Note Text: Scan on 04/10/2024 11:47 AM by ProviderEric PA-C: Consultation - Genetics Edwin Motley MA [facility] 04-15-2024 History of Presen t illness Narrative Scan on 04/10/2024 11:47 AM by ProviderEric PA-C: Consultation - Genetics Edwin Motley MA documented in this encounter [facility] 04-07-2024 Telephone encounter Note ----- Message from Remington Sung MD sent at 04/06/2024 7:31 AM EST ----- Please let her know that her margins were all clear on her lumpectomy. Good news. Patient verbalized understanding of her pathology [facility] 04-07-2024 Telephone encounter Note ----- Message from Remington Sung MD sent at 04/06/2024 7:31 AM EST ----- Please let her know that her margins were all clear on her lumpectomy. Good news. [facility] 04-07-2024 Miscellaneous Notes ----- Message from [...] Ibrahima Dhaliwal DO documented in this encounter [facility] 04-02-2024 Telephone encounter Note I called [...] Dr Sung on 04/30/24 at 8 am. [facility] 04-02-2024 Miscellaneous Notes I called to [...] at 8 am. documented in this encounter [facility] 04-01-2024 Note HNO ID: [id number] Author: ?, ?, ? Service: ? Author Type: ? Type: Plan of Care Filed: 04/02/2024 14:52 Note Text: PHARMACY BEDSIDE DELIVERY SERVICE Patient Name: Love Pino The marked outpatient medications were Filled at: [facility] and delivered to the patient's bedside [...] mg 12 hr tablet Generic drug: guaiFENesin Zizaczue-Garydsb-Wkmv-Lutein Tab TUMS ORAL You might also be taking other medications not listed above. If you have questions about any of your other medications, talk to the person who prescribed them or your Primary Care Provider. Criss Loco PAGER: ekta April 01, 2024 2:[address] 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 04-01-2024 History of Presen t illness Narrative [...] PATIENT PRESENTS WITH AN IMPLANTABLE OR ATTACHED AGRICULTURAL TECHNICIAN: No RADIOLOGY DEPARTMENT: Ultrasound PERIPHERAL IV DATA: [...] PATIENT PRESENTS WITH AN IMPLANTABLE OR ATTACHED AGRICULTURAL TECHNICIAN: No RADIOLOGY DEPARTMENT: Mammography PERIPHERAL IV DATA: Not applicable SIGNED BY: RT Norma(R) April 01, 2024 10:59 AM The sensitive examination was discussed with the Patient or Patient's Authorized Tempering Oven Operator. As applicable, any other physician, advance practice provider, medical student, or other health professional student that will be observing or involved in the sensitive examination for educational or training purposes was discussed with the Patient or Authorized Tempering Oven Operator. The Patient or Authorized Tempering Oven Operator has agreed to proceed with the sensitive [...] PATIENT PRESENTS WITH AN IMPLANTABLE OR ATTACHED AGRICULTURAL TECHNICIAN: No RADIOLOGY DEPARTMENT: Mammography PERIPHERAL IV DATA: Not applicable SIGNED BY: RT Norma(Nathalia) April 01, 2024 10:59 AM The sensitive examination was discussed with the Patient or Patient's Authorized Tempering Oven Operator. As applicable, any other physician, advance practice provider, medical student, or other health professional student that will be observing or involved in the sensitive examination for educational or training purposes was discussed with the Patient or Authorized Tempering Oven Operator. The Patient or Authorized Tempering Oven Operator has agreed to proceed with the sensitive examination. (Sensitive examination includes inspection and/or palpation of the breasts, pelvis, prostate and anorectal regions) documented in this encounter [facility] 04-01-2024 Note HNO ID: [id number] Author: CAMILLE GLASS RDMS Service: Radiology Author [...] PATIENT PRESENTS WITH AN IMPLANTABLE OR ATTACHED AGRICULTURAL TECHNICIAN: No RADIOLOGY DEPARTMENT: Ultrasound PERIPHERAL IV DATA: Not applicable SIGNED BY: Camille Glass RDMS April 01, 2024 10:[address] [facility] 04-01-2024 Note HNO ID: [id number] Author: KIMBERLY JONES RT(R) Service: ? Author [...] PATIENT PRESENTS WITH AN IMPLANTABLE OR ATTACHED AGRICULTURAL TECHNICIAN: No RADIOLOGY DEPARTMENT: Mammography PERIPHERAL IV DATA: Not applicable SIGNED BY: RT Norma(R) April 01, 2024 10:[address] [facility] 04-01-2024 Note HNO ID: [id number] Author: KIMBERLY JONES RT(R) Service: ? Author Type: Technologist Type: Progress Notes Filed: 04/01/2024 10:59 Note Text: The sensitive examination was discussed with the Patient or Patient's Authorized Tempering Oven Operator. As applicable, any other physician, advance practice provider, medical student, or other health professional student that will be observing or involved in the sensitive examination for educational or training purposes was discussed with the Patient or Authorized Tempering Oven Operator. The Patient or Authorized Tempering Oven Operator has agreed to proceed with the sensitive examination. (Sensitive examination includes inspection and/or palpation of the breasts, pelvis, prostate and anorectal regions) [facility] 04-01-2024 Note HNO ID: [id number] Author: KIMBERLY JONES RT(Nathalia) Service: ? Author [...] PATIENT PRESENTS WITH AN IMPLANTABLE OR ATTACHED AGRICULTURAL TECHNICIAN: No RADIOLOGY DEPARTMENT: Mammography PERIPHERAL IV DATA: Not applicable SIGNED BY: RT Norma(R) April 01, 2024 10:[address] [facility] 04-01-2024 Note HNO ID: [id number] Author: KIMBERLY JONES RT(R) Service: ? Author Type: Technologist Type: Progress Notes Filed: 04/01/2024 11:01 Note Text: The sensitive examination was discussed with the Patient or Patient's Authorized Tempering Oven Operator. As applicable, any other physician, advance practice provider, medical student, or other health professional student that will be observing or involved in the sensitive examination for educational or training purposes was discussed with the Patient or Authorized Tempering Oven Operator. The Patient or Authorized Tempering Oven Operator has agreed to proceed with the sensitive examination. (Sensitive examination includes inspection and/or palpation of the breasts, pelvis, prostate and anorectal regions) [facility] 04-01-2024 Nurse procedure note 5CM Right breast needle localization inserted.. [facility] 04-01-2024 Miscellaneous Notes 5CM Right breast needle localization inserted.. documented in this encounter [facility] 03-31-2024 Note HNO ID: [id number] Author: RENETTA AHUMADA RN Service: ? Author [...] mcg (2,000 unit) cap Follow Surgeon's instructions Wgdtbojj-Wtverej-Uewz-Lutein tab Follow Surgeon's instructions If you have [...] directed. Bring copy of Living Will/Power of Banana Room Cutter. Do not smoke or chew. If you [...] the Surgery Center. UPON ARRIVAL: Access to [facility] ([facility]) is located on [address] Nuclear Engineer parking is available for your convenience from [...] time are permitted in your preprocedure room. [facility] 03-30-2024 Note HNO ID: [id number] Author: DAVID JOHNSON APRN.CNP Service: ? Author Type: Nurse Practitioner Type: [...] mcg (2,000 unit) cap Follow Surgeon's instructions Rfvckcqo-Jklyrdy-Acwg-Lutein tab Follow Surgeon's instructions If you have any medication changes between receiving these instructions and your surgery date, please provide this updated information with the nurse who calls you the week day prior to your surgical procedure so we can update your list and provide you with updated instructions for the morning of your procedure. [facility] 03-23-2024 Note HNO ID: [id number] Author: GIANA VELASCO RN Service: ? Author [...] None LEARNING RESPONSE DIAGNOSIS: invasive lobular carcinoma ER/NH +; HER2 - METHOD OF INSTRUCTION: Individual instruction PATIENT / FAMILY RESPONSE: Verbalizes understanding of: Diagnosis, presurgical instructions, day of surgery procedures, and post op instructions. FOLLOW-UP PLAN: post op with Dr Sung is scheduled and patient is aware of the date and time. SUPPLEMENTAL MATERIAL: breast cancer journey guide and rust binder REFERRAL (RECOMMENDATION): None; Patient has an established medical oncologist in [place], Dr Vail and will also be seen in [place] for her radiation oncologist. She formally had breast cancer in her left breast and had surgery with Dr Sung. She was also on arimidex x 5 years and received radiation to the right breast. She is very well versed in these areas. Electronically Signed By: Giana Velasco RN In Department: [facility] BREAST SURGERY [facility] 03-23-2024 History of Presen t illness Narrative [...] None LEARNING RESPONSE DIAGNOSIS: invasive lobular carcinoma ER/NH +; HER2 - METHOD OF INSTRUCTION: Individual instruction PATIENT / FAMILY RESPONSE: Verbalizes understanding of: Diagnosis, presurgical instructions, day of surgery procedures, and post op instructions. FOLLOW-UP PLAN: post op with Dr Sung is scheduled and patient is aware of the date and time. SUPPLEMENTAL MATERIAL: breast cancer journey guide and rust binder REFERRAL (RECOMMENDATION): None; Patient has an established medical oncologist in [place], Dr Vail and will also be seen in [place] for her radiation oncologist. She formally had breast cancer in her left breast and had surgery with Dr Sung. She was also on arimidex x 5 years and received radiation to the right breast. She is very well versed in these areas. Electronically Signed By: Giana Velasco RN In Department: [facility] BREAST SURGERY documented in this encounter [facility] 03-19-2024 Telephone encounter Note Spoke with patient and scheduled in est.complex slot on 04/16 Zayda Joshua [facility] 03-19-2024 Note HNO ID: [id number] Author: KALEIGH CANALES MA Service: ? Author Type: Kitchen Assistant Type: Progress Notes Filed: 03/19/2024 15:30 Note Text: Scan on 03/19/2024 11:55 AM by ProviderEric PA-C: Consultation - Genetics [facility] 03-19-2024 History of Presen t illness Narrative Scan on 03/19/2024 11:55 AM by ProviderEric PA-C: Consultation - Genetics documented in this encounter [facility] 03-19-2024 Telephone encounter Note She is scheduled for right breast lumpectomy on 04/01. Please schedule with me for establish complex or new patient visit week of April 13. Ibrahima Dhaliwal DO [facility] Work Phone: 03-19-2024 Note HNO ID: [id number] Author: FCO BENEDICT LPN Service: ? Author Type: LICENSED NURSE Type: Progress Notes Filed: 03/19/2024 07:21 Note Text: Scan on 03/18/2024 2:43 PM by ProviderEric PA-C: Consultation - Cardiology [facility] 03-19-2024 History of Presen t illness Narrative Scan on 03/18/2024 2:43 PM by Provider, MADONNA Reyes: Consultation - Cardiology documented in this encounter [facility] 03-18-2024 Telephone encounter Note ----- Message from Remington Sung MD sent at 03/18/2024 7:02 AM EST ----- Please let her know that her axillary ultrasound showed normal lymph nodes. Great news. Patient aware of her normal nodes. Surgery scheduled 04/01/24 patient verbalized understanding [facility] 03-18-2024 Miscellaneous Notes ----- Message from Remington Sung MD sent at 03/18/2024 7:02 AM EST ----- Please let her know that her axillary ultrasound showed normal lymph nodes. Great news. Patient aware of her normal nodes. Surgery scheduled 04/01/24 patient verbalized understanding documented in this encounter [facility] 03-17-2024 Note Normal sinus rhythm Inferior infarct , age undetermined Poor anterior R-wave progression Abnormal ECG Compared to prior tracing Inferior infarct is now present Confirmed by RAQUEL SHINE, [facility] ([id number]) on 03/17/2024 9:57:52 PM [facility] 03-17-2024 History of Presen t illness [...] PATIENT PRESENTS WITH AN IMPLANTABLE OR ATTACHED AGRICULTURAL TECHNICIAN: N/A RADIOLOGY DEPARTMENT: General X-ray: Exam(s) Completed: Chest X-Ray PERIPHERAL IV DATA: Not applicable SIGNED BY: RT Patrick(Nathalia) March 17, 2024 3:07 PM documented in this encounter [facility] 03-17-2024 Note HNO ID: [id number] Author: BAMBI FIELD RT(R) Service: Radiology Author [...] PATIENT PRESENTS WITH AN IMPLANTABLE OR ATTACHED AGRICULTURAL TECHNICIAN: N/A RADIOLOGY DEPARTMENT: General X-ray: Exam(s) Completed: Chest X-Ray PERIPHERAL IV DATA: Not applicable SIGNED BY: LINNETTE Ngueyn) March 17, 2024 3:[address] [facility] 03-17-2024 History of Presen t illness Narrative [...] PATIENT PRESENTS WITH AN IMPLANTABLE OR ATTACHED AGRICULTURAL TECHNICIAN: No RADIOLOGY DEPARTMENT: Ultrasound PERIPHERAL IV DATA: Not applicable SIGNED BY: RT Leandro(R) March 17, 2024 2:23 PM documented in this encounter [facility] 03-17-2024 Note HNO ID: [id number] Author: MICK HORTON RT(Nathalia) Service: Radiology Author Type: Technologist Type: Progress [...] PATIENT PRESENTS WITH AN IMPLANTABLE OR ATTACHED AGRICULTURAL TECHNICIAN: No RADIOLOGY DEPARTMENT: Ultrasound PERIPHERAL IV DATA: Not applicable SIGNED BY: RT Leandro(R) March 17, 2024 2:[address] [facility] 03-16-2024 Telephone encounter Note Spoke with pt. Informed Her surgical pathology was copied to Dr. Dhaliwal by Dr. Meeks. New small right-sided breast cancer. Breast cancer. She saw a surgeon at [facility] who ordered an ultrasound of the right axilla which is scheduled for Saturday. Surgical plan will follow results of that. Needs to see Dr. Dhaliwal as est complex in about 6-8 weeks. Pt. Voiced understanding and will contact office to schedule that appt. After she is aware of her surgical plan. Irlanda Ramirez LPN [facility] 03-16-2024 Miscellaneous Notes Spoke with pt. Informed Her surgical pathology was copied to Dr. Dhaliwal by Dr. Meeks. New small right-sided breast cancer. Breast cancer. She saw a surgeon at [facility] who ordered an ultrasound of the right [...] Breast cancer. She saw a surgeon at [facility] who ordered an ultrasound of the right axilla which is scheduled for Saturday. Surgical plan will follow results of that. Needs to see me as est complex in about 6-8 weeks. Ibrahima Dhaliwal DO documented in this encounter [facility] 03-15-2024 Telephone encounter Note Her surgical pathology was copied to me by Dr. Meeks. New small right-sided breast cancer. Breast cancer. She saw a surgeon at [facility] who ordered an ultrasound of the right axilla which is scheduled for Saturday. Surgical plan will follow results of that. Needs to see me as est complex in about 6-8 weeks. Ibrahima Dhaliwal DO [facility] Work Phone: 03-10-2024 Telephone encounter Note Summary: [facility] referral Faxed all info To [facility] to set up appointment for patient [facility] 03-10-2024 Miscellaneous Notes Summary: [facility] referral Faxed all info To [facility] to set up appointment for patient documented in this encounter [facility] 03-09-2024 History and physical note Images from the original note were not included. March 09, 2024 Love Pino 1950 [id number] ELEM: This is a 73-year-old female that I [...] The patient came in today with her fdpwbcuy-ql-gsi to discuss her treatment options for this new cancer. I did review her recent mammogram images with the patient and her ivrmzhfs-dg-fia. I also made them a copy of [...] Take 1 capsule by mouth once daily. Qgcajrri-Clbzebb-Ajyx-Lutein tab Take 1 tablet by mouth once [...] discussed with the Patient or Patient's Authorized Tempering Oven Operator. As applicable, any other physician, advance practice provider, medical student, or other health professional student that will be observing or involved in the sensitive examination for educational or training purposes was discussed with the Patient or Authorized Tempering Oven Operator. The Patient or Authorized Tempering Oven Operator has agreed to proceed with the sensitive [...] 105 minutes preparing to see the patient, gkcf-gw-tiwp patient care, performing a medically appropriate examination, [...] physician via US mail. Remington Sung MD [facility] 03-09-2024 History and physical note Images from the original note were not included. March 09, 2024 Love Pino 1950 [id number] ELEM: This is a 73-year-old female that I [...] The patient came in today with her crvpqlbq-vy-hog to discuss her treatment options for this new cancer. I did review her recent mammogram images with the patient and her lzarpuiq-wx-flp. I also made them a copy of [...] Take 1 capsule by mouth once daily. Ddffutnu-Fnjdvsn-Zwle-Lutein tab Take 1 tablet by mouth once [...] discussed with the Patient or Patient's Authorized Tempering Oven Operator. As applicable, any other physician, advance practice provider, medical student, or other health professional student that will be observing or involved in the sensitive examination for educational or training purposes was discussed with the Patient or Authorized Tempering Oven Operator. The Patient or Authorized Tempering Oven Operator has agreed to proceed with the sensitive [...] 105 minutes preparing to see the patient, vjnj-de-vhws patient care, performing a medically appropriate examination, [...] Remington Sung MD documented in this encounter [facility] 02-26-2024 Telephone encounter Note Patient called. [...] will call tomorrow morning. Loly Dubois LPN [facility] 02-26-2024 Miscellaneous Notes Patient called. Verified [...] be referred to Dr. Remington Sung at [facility] for surgical treatment. I will place a phone call for the above. documented in this encounter [facility] 02-26-2024 Telephone encounter Note Told patient that pathology reveals Invasive lobular carcinoma, provisional grade 2 She wishes to be referred to Dr. Remington Sung at [facility] for surgical treatment. I will place a phone call for the above. [facility] Work Phone: 02-03-2024 History of Presen [...] Take 1 capsule by mouth once daily. Wgnwjjxk-Aahdxga-Wgfh-Lutein tab Take 1 tablet by mouth once [...] entered by the nurse and reviewed by nj Nursing Notes: Loly Dubois LPN 02/03/2024 1:42 [...] to the patient. To be done at [facility] Breast imaging center. I will call patient [...] Azra Meeks MD documented in this encounter [facility] 02-03-2024 Nurse Note REVIEW OF SYSTEMS: [...] 01/29/2024 Last Colonoscopy: 12/19/2020 Loly Dubois LPN [facility] 02-03-2024 Nurse Note REVIEW OF SYSTEMS: [...] Loly Dubois LPN documented in this encounter [facility] 01-29-2024 History of Presen t illness [...] nuclear grade 2. ER >90%, strong and NH 60%, weak to moderate. HER2 quantified at [...] wanted second opinion and was referred to [facility]. L dx mamm/US done. Bx [...] (1.9 cm; grade 2; LVI+) pN1a MX ER/NH positive HER2 negative stage IIA invasive ductal [...] discussed with the Patient or Patient's Authorized Tempering Oven Operator. As applicable, any other physician, advance practice provider, medical student, or other health professional student that will be observing or involved in the sensitive examination for educational or training purposes was discussed with the Patient or Authorized Tempering Oven Operator. The Patient or Authorized Tempering Oven Operator has agreed to proceed with the sensitive [...] Effie Vaz APRN.HANH documented in this encounter [facility] 01-29-2024 History of Presen t illness [...] PATIENT PRESENTS WITH AN IMPLANTABLE OR ATTACHED AGRICULTURAL TECHNICIAN: No RADIOLOGY DEPARTMENT: Ultrasound PERIPHERAL IV DATA: Not applicable SIGNED BY: Dorothy Ortega RDMS January 29, 2024 2:48 PM documented in this encounter [facility] 01-29-2024 History of Presen t illness [...] PATIENT PRESENTS WITH AN IMPLANTABLE OR ATTACHED AGRICULTURAL TECHNICIAN: No RADIOLOGY DEPARTMENT: Mammography PERIPHERAL IV DATA: Not applicable SIGNED BY: Dc Antonio Mammo Robert January 29, 2024 9:25 AM documented in this encounter [facility] 01-07-2024 Telephone encounter Note Spoke with patient and rescheduled. Gabby Rooney [facility] 01-07-2024 Miscellaneous Notes Spoke with patient and rescheduled. Gabby Rooney Pt. Notified that radiologist is requesting additional [...] until after above. Thank you. Effie Vaz APRN.HANH documented in this encounter [facility] 01-06-2024 Telephone encounter Note Pt. Notified that radiologist is requesting additional images of mammogram. Pt. Voiced understanding, was given phone number to schedule those images. PSS please contact pt. Later this afternoon to reschedule appt. With Effie after those images obtained. Pt. Is aware you will be rescheduling her appt. Irlanda Ramirez LPN [facility] 01-06-2024 Telephone encounter Note Please inform pt. that the radiologist would like additional images of her R breast. Please schedule R dx mamm/US soon. Please push out upcoming OV until after above. Thank you. Effie Vaz APRN.HYDRO TECHNICIAN [facility] 01-03-2024 History of Presen t illness [...] PATIENT PRESENTS WITH AN IMPLANTABLE OR ATTACHED AGRICULTURAL TECHNICIAN: No RADIOLOGY DEPARTMENT: Mammography PERIPHERAL IV DATA: Not applicable SIGNED BY: Tessa Canseco January 03, 2024 8:32 AM documented in this encounter [facility] 07-15-2023 History of Presen t illness Narrative Chief Complaint Patient presents with: Pre-Op Exam HPI Love Pino is a 73 year old female who presents here today for pre op clearance right total knee replacement. Surgery scheduled for July 31 at [facility] [place] by Dr. Das. COVID April 29, [...] Take 1 capsule by mouth once daily. Nesgombe-Edipusy-Pusb-Lutein tab Take 1 tablet by mouth once [...] 3) due on 05/13/2015 Covid-19 Vaccine(3 - 2022- season) due on 12/28/2022 Advance Directive Discussion [...] scheduled 07/[address] Das. Lizeth Sifuentes APRN.HYDRO TECHNICIAN E Vazquez [employer] SAVINGS COUNSELOR Student I have personally seen and examined the patient and performed the medical-decision making components. I have reviewed the Advanced Practice Registered Nurse (DYE PENETRANT TESTING TECHNICIAN) student's documentation and verified the findings in the note as written. Any additions or changes are noted in bold/italics. Lizeth Sifuentes APRN.HYDRO TECHNICIAN documented in this encounter [facility] 07-11-2023 History of Presen t illness Narrative Scan on 07/08/2023 2:34 PM by Eric Mas PA-C: CT Scan documented in this encounter [facility] 07-08-2023 History of Presen t illness Narrative Scan on 07/08/2023 9:03 AM by Eric Mas PA-C: Chemistry Scan on 07/08/2023 9:03 AM by Eric Mas PA-C: Chemistry documented in this encounter [facility] 12-21-2023 Discharge summary Note Date/Time April 18, 2023 10:02am [facility] [address] [place] [address] / REHABILITATION SERVICES DISCHARGE SUMMARY MR#: [id number] Acct: [id number] Name: LOVE PINO Rep #: [id number] : 1950 72 From: Rajinder Jon. T, OCS Referring Dr.: Dr. Justin Das MD Status: REG RCR Insurance: MEDICARE PART A B [facility] Discharge Summary D/C summary: It has been [...] please feel free to call me at [phone]. Thank you for the referral of thispatient. Sincerely, Guicho Strange, PT, Cert MDT, OCS Balance/Gait/Functional tests Balance/Special Test Scores Lower Extremity Functional Score: 45 Improvement % Improvement: 20 <Electronically signed by Guicho Strange PT Cert. LUPE FITCH> 04/18/23 1616 CC: Dr. Gerardo Saleh MD; Dr. Justin Das MD ~ JLA Signed [facility] Work Phone: 1(558) 391-295011-21-2023 Miscellaneous Notes* Telephone Encounter - Edwin Motley [...] orders. Edwin Motley MA [facility] History of Present illness Narrative* Effie Vaz APRN.HYDRO TECHNICIAN - 01/04/2023 8:50 AM EDT Chief Complaint [...] nuclear grade 2. ER >90%, strong and NH 60%, weak to moderate. HER2 quantified at [...] Pt. wanted second opinion and [facility] L dx mamm/US done. Bx [...] (1.9 cm; grade 2; LVI+) pN1a MX ER/NH positive HER2 negative stage IIA invasive ductal [...] as necessary for today's visit. Effie Vaz APRN.HYDRO TECHNICIAN documented [facility]23 Miscellaneous Notes* Letter - Coordinator, Mammography - 01/01/2023 2:43 PM EDT January 02, 2023 PID: [id number] Love Pino [address] [place] [address] Dear Ms. Pino, We are pleased to [...] report will be kept on file at [facility] as part of your permanent medical record and are available for your continuing care. Thank you for allowing us to help in meeting your health care needs. Sincerely, Dr. Moyer Interpreting Radiologist [facility] (Normal over 40) documented in this encounterOhio[facility]06-28-2023 Miscellaneous Notes* Telephone Encounter - Adilia Church - 10/24/2022 3:17 PM EDT Scheduled with [...] Patient requesting mamm orders documented in this encounter[facility]23 History of Present illness Narrative* Jayleen Abdul MA - 10/10/2022 10:43 AM EDT POPULATION HEALTH NAVIGATION OUTREACH Action/FYI NO ANSWER HealthyOutHART MESSAGE SENT ANNUAL MEDICARE WELLNESS EXAM DUE AFTER 12-26-22 ADVANCE DIRECTIVE DISCUSSION due on 04/29/2022 DEPRESSION ASSESSMENT Never done MAMMOGRAM due on 12/11/2022 Patient Identified by Name and : NO Outreach Outcome/Action Unable to reach patient: Phone number not valid / voicemail full [employer] message sent Did you use a PCP [...] 10, 2022 10:43 AM documented in this encounter[facility] Miscellaneous Notes* Telephone Encounter - Azra Meeks MD - 01/02/2022 2:32 PM EDT Told patient that pathology was benign. Only scar tissue found which would be consistent with the location of the previous lumpectomy. Will have patient undergo repeat left breast mammograms and ultrasound in 6 months. Patient acknowledges above. She states that the biopsy site is healing well. documented in this encounter[facility]09[facility]22 Procedure note* Azra Meeks MD - [...] none EBL - minimal documented in this encounterOhio[facility]09-[facility]-2022 History of Present illness Narrative* Azra [...] correctly labeled. Laila Swift documented in this encounterOhio[facility]09-[facility]-2022 History of Present illness Narrative* Tessa Alexandra - 12/28/2021 11:00 AM EDT Radiology Service [...] Not applicable SIGNED BY: Tessa Alexandra December 28, 2021 9:54 AM documented in this encounterOhio[facility]09-01-2022 Instructions* Patient Instructions* Laila Swift - 12/28/2021 9:10 AM EDT The following instructions are important for you related to your office visit today with the [facility] General Surgeons. Instructions After OFFICE BASED BREAST [...] you should contact our office immediately @ [phone] and ask to be transferred to the General Surgery department. documented in this encounterOhio[facility]08-31-2022 Miscellaneous Notes* Telephone Encounter - Tiffany Ugarte PA-C - 12/27/2021 1:32 PM EDT noted * Telephone Encounter - Edwin Moltey MA - 12/27/2021 11:06 AM EDT Patient [...] has improved. Thyroid is normal Thanks. Tiffany Uagrte PA-C documented in this encounterOhio[facility]08-30-2022 History of Present illness Narrative* Tiffany Ugarte PA-C - 12/26/2021 9:44 AM EDT [...] Take 1 capsule by mouth once daily. Ayhrullv-Jfiwwji-Shwl-Lutein tab Take 1 tablet by mouth once [...] No history of dysuria, frequency or incontinence 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QUALITY ASSURANCE: Negative for abnormal vaginal bleeding, abnormal vaginal [...] clear.. Tiffany Ugarte PA-C documented in this encounterOhio[facility]08-29-2022 History of Present illness Narrative* Azra [...] age 23,breast feeding 6-9 mnths for each infant, BCP [...] Take 1 capsule by mouth once daily. Fyzvnzuu-Vdsnkqk-Hbaa-Lutein tab Take 1 tablet by mouth once [...] Low Azra Meeks MD documented in this encounterOhio[facility]08-29-2022 Nurse Note* Laila Swift - 12/25/2021 [...] Colonoscopy: 12/19/2020 Laila Swift documented in this encounterOhio[facility]08-24-2022 History of Present illness Narrative* Sonya Dillard RDMS - 12/20/2021 3:30 PM EDT Radiology [...] IV DATA: Not applicable SIGNED BY: Sonya Dillard RDMS RVT December 20, 2021 3:53 PM documented in this encounterOhiohealth [facility] Hospital08-18-2022 History of Present illness Narrative* Effie [...] nuclear grade 2. ER >90%, strong and NH 60%, weak to moderate. HER2 quantified at [...] Pt. wanted second opinion and [place]. L dx mamm/US done. Bx not done. 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 Effie Vaz APRN.HANH documented in this encounterOhio[facility]08-15-2022 History of Present illness Narrative* Tessa [...] 11, 2021 8:26 AM documented in this encounterOhio[facility]05-19-2022 History of Present illness Narrative* Myra Motley APRN.HYDRO TECHNICIAN - 09/14/2021 3:43 PM EDT Images from [...] history is provided by the patient. No foreign language interpreter was used. Review of Systems Constitutional: Negative. [...] 1 Drop in both eyes once daily. Jnvfplqk-Tuafpgi-Foac-Lutein (CENTRUM SILVER ULTRA WOMEN'S) tab Take 1 [...] to go to her PCP. Myra Motley APRN.HANH documented in this encounterOhio[facility] Hospital12-09-2021 NoteHNO ID: [id number] Author: Jane Restrepo APRN.MOTION GRAPHICS DESIGNER Service: Anesthesiology Author Type: Nurse Division Service Manager Type: Anesthesia Procedure Notes Filed: 04/06/2021 11:55 AM Note Text: ANESTHESIOLOGY PROCEDURE NOTE Airway General Information Procedure Start Time/Medication Administration: 04/06/2021 11:43 AM Patient location during procedure: OR Timeout Performed Pre-procedure: timeout performed Consent Obtained: Yes Patient identity confirmed: arm band and patient Staffing MOTION GRAPHICS DESIGNER: Jane Restrepo APRN.MOTION GRAPHICS DESIGNER Indications and Patient Condition Preoxygenated: yes Patient [...] April 06, 2021 TIME: 11:55 AM CSN: [id number] History of Past illness Narrative* Problem Noted Date Resolved Date History of colonic polyps 10/28/20202020 documented as of this encounter (statuses as of 09/14/2021) [facility] History of Past illness Narrative* Problem Noted Date Resolved Date History of colonic polyps 10/28/20202020 documented as of this encounter (statuses as of 11/26/2021) [address]02-2021 History of Past illness Narrative* Problem Noted Date Resolved Date History of colonic polyps 10/28/20202020 documented as of this encounter (statuses as of 12/12/2021) [facility] History of Past illness Narrative* Problem Noted Date Resolved Date History of colonic polyps 10/28/20202020 documented as of this encounter (statuses as of 12/14/2021) [address]02-2021 History of Past illness Narrative* Problem Noted Date Resolved Date History of colonic polyps 10/28/20202020 documented as of this encounter (statuses as of 12/21/2021) [address]02-2021 History of Past illness Narrative* Problem Noted Date Resolved Date History of colonic polyps 10/28/20202020 documented as of this encounter (statuses as of 12/26/2021) [address]02-2021 History of Past illness Narrative* Problem Noted Date Resolved Date History of colonic polyps 10/28/20202020 documented as of this encounter (statuses as of 12/27/2021) [address]02-2021 History of Past illness Narrative* Problem Noted Date Resolved Date History of colonic polyps 10/28/20202020 documented as of this encounter (statuses as of 12/27/2021) [address]02-2021 History of Past illness Narrative* Problem Noted Date Resolved Date History of colonic polyps 10/28/20202020 documented as of this encounter (statuses as of 12/29/2021) [address]02-2021 History of Past illness Narrative* Problem Noted Date Resolved Date History of colonic polyps 10/28/20202020 documented as of this encounter (statuses as of 12/31/2021) [address]02-2021 History of Past illness Narrative* Problem Noted Date Resolved Date History of colonic polyps 10/28/20202020 documented as of this encounter (statuses as of 01/02/2022) [facility] History of Past illness Narrative* Problem Noted Date Resolved Date History of colonic polyps 10/28/20202020 documented as of this encounter (statuses as of 01/08/2022) [address]02-2021 History of Past illness Narrative* Problem Noted Date Resolved Date History of colonic polyps 10/28/20202020 documented as of this encounter (statuses as of 10/11/2022) [facility] History of Past illness Narrative* Problem Noted Date Resolved Date History of colonic polyps 10/28/20202020 documented as of this encounter (statuses as of 10/25/2022) [address]02-2021 History of Past illness Narrative* Problem Noted Date Diagnosed Date Resolved Date History of colonic polyps 10/28/2020 documented as of this encounter (statuses as of 01/03/2023) [address]02-2021 History of Past illness Narrative* Problem Noted Date Diagnosed Date Resolved Date History of colonic polyps 10/28/2020 documented as of this encounter (statuses as of 01/04/2023) [address]02-2021 History of Past illness Narrative* Problem Noted Date Diagnosed Date Resolved Date History of colonic polyps 10/28/2020 documented as of this encounter (statuses as of 03/19/2023) [facility] of Past illness Narrative* Problem Noted Date Diagnosed Date Resolved Date History of colonic polyps 10/28/2020 documented as of this encounter (statuses as of 07/08/2023) [facility] of Past illness Narrative* Problem Noted Date Diagnosed Date Resolved Date History of colonic polyps 10/28/2020 documented as of this encounter (statuses as of 07/11/2023) [facility] of Past illness Narrative* Problem Noted Date Diagnosed Date Resolved Date History of colonic polyps 10/28/2020 documented as of this encounter (statuses as of 07/15/2023) [facility] Diagnosis Foreign body of right hand, initial encounter- Primary documented [facility] encounter [facility]* Diagnosis Malignant neoplasm of upper-outer quadrant of left breast in female, estrogen receptor positive (HCC) Encounter for screening mammogram for high-risk patient [facility] encounter [facility]* Diagnosis Malignant neoplasm of upper-outer quadrant of left breast in female, estrogen receptor positive (HCC)- Primary documented [facility]* Diagnosis Medicare annual wellness visit, subsequent- Primary Routine general medical examination at a [facility] care facility Advance directive discussed with patient [...] ear Impacted cerumen [facility] encounter [facility]* Diagnosis Abnormal ultrasound of breast- Primary Other (abnormal) findings on radiological examination of breast History of left breast cancer [facility]* Diagnosis Abnormal ultrasound of breast Other (abnormal) findings on radiological examination of breast [facility] Diagnosis Abnormal ultrasound of breast- Primary Other (abnormal) findings on radiological examination of breast [facility]* Diagnosis Abnormal mammogram- Primary Abnormal mammogram, unspecified [facility]* Diagnosis Malignant neoplasm of upper-outer quadrant of left breast in female, estrogen receptor positive (HCC)- Primary Encounter for screening mammogram for high-risk patient [facility]* Diagnosis Personal history of breast cancer- Primary Personal history of malignant neoplasm of breast Encounter for screening mammogram for high-risk patient [facility]* Diagnosis Elevated blood sugar- Primary Other abnormal glucose Encounter for lipid screening for cardiovascular disease Screening for lipoid disorders Medication management Encounter for long-term (current) use of other medications documented in this encounter [facility] noteNo assessment information availableWMansfield Hospital Work Phone: Evaluation note* Diagnosis Encounter for pre-operative examination- Primary Age-related osteoporosis without current pathological fracture Senile osteoporosis Class 1 obesity due to excess calories with serious comorbidity and body mass index (BMI) of 32.0 to 32.9 in adult Osteoarthritis of left knee, unspecified osteoarthritis type [facility]* Diagnosis Pre-operative examination- Primary Preoperative examination, [...] for high-risk patient [facility]* Diagnosis Pre-operative examination- Primary Preoperative examination, [...] of right breast documented in this encounter [facility] note* Diagnosis Pre-operative examination- Primary Preoperative examination, [...] receptor positive (HCC) documented in this encounter [facility] note* Diagnosis Pre-operative examination- Primary Preoperative examination, [...] of right breast documented in this encounter [facility] note* Diagnosis Pre-operative examination- Primary Preoperative examination, [...] of right breast documented in this encounter [facility] note* Diagnosis Pre-operative examination- Primary Preoperative examination, [...] cancer [facility] Diagnosis Pre-operative examination- Primary Preoperative examination, [...] examination of breast documented in this encounter [facility] note* Diagnosis Pre-operative examination- Primary Preoperative examination, [...] female breast (HCC) documented in this encounter [facility] note* Diagnosis Pre-operative examination- Primary Preoperative examination, [...] neoplasm of breast documented in this encounter [facility] note* Diagnosis Pre-operative examination- Primary Preoperative examination, [...] (HCC) [facility]* Diagnosis Malignant neoplasm of upper-outer 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, unspecified estrogen receptor status Estrogen receptor positive Estrogen receptor positive status [ER+] Personal history of malignant neoplasm of [facility] Diagnosis Pre-operative examination- Primary Preoperative examination, [...] receptor status (HCC) documented in this encounter [facility] note* Diagnosis Pre-operative examination- Primary Preoperative examination, [...] receptor status (HCC) documented in this encounter [facility] note* Diagnosis Pre-operative examination- Primary Preoperative examination, [...] positive (HCC)- Primary documented in this encounter [facility] note* Diagnosis Pre-operative examination- Primary Preoperative examination, [...] female breast (HCC) documented in this encounter [facility] note* Diagnosis Pre-operative examination- Primary Preoperative examination, [...] reason for consultation documented in this encounter [facility] note* Diagnosis Pre-operative examination- Primary Preoperative examination, [...] breast (HCC)- Primary documented in this encounter [facility] note* Diagnosis Pre-operative examination- Primary Preoperative examination, [...] unspecified documented [facility] encounter [facility]* Diagnosis Pre-operative examination- Primary Preoperative examination, [...] breast (HCC)- Primary documented in this encounter [facility] note* Diagnosis Pre-operative examination- Primary Preoperative examination, [...] breast (HCC)- Primary documented in this encounter [facility] note* Diagnosis Pre-operative examination- Primary Preoperative examination, [...] Primary [facility]* Diagnosis Pre-operative examination- Primary Preoperative examination, [...] Primary documented [facility]* Diagnosis Pre-operative examination- Primary Preoperative examination, [...] female breast (HCC) documented in this encounter [facility] note* Diagnosis Pre-operative examination- Primary Preoperative examination, [...] neoplasm of breast documented in this encounter [facility] note* Diagnosis Pre-operative examination- Primary Preoperative examination, [...] breast documented [facility]* Diagnosis Pre-operative examination- Primary Preoperative examination, [...] Primary documented [facility]* Diagnosis Pre-operative examination- Primary Preoperative examination, [...] positive (HCC)- Primary documented in this encounter [facility] note* Diagnosis Pre-operative examination- Primary Preoperative examination, [...] for lipoid disorders documented in this encounter [facility] note* Diagnosis Pre-operative examination- Primary Preoperative examination, [...] neoplasm of breast documented in this encounter [facility] note* Diagnosis Pre-operative examination- Primary Preoperative examination, [...] positive (HCC)- Primary documented in this encounter [facility] note* Diagnosis Pre-operative examination- Primary Preoperative examination, unspecified Cystocele, midline Partial rectal prolapse Rectal prolapse Malignant neoplasm of upper-outer quadrant of left breast in female, estrogen receptor positive (HCC) Venous insufficiency (chronic) (peripheral) Unspecified venous (peripheral) insufficiency Lymphedema of left upper extremity Class 1 obesity due to excess calories with serious comorbidity and body mass index (BMI) of 32.0 to 32.9 in adult Pre-op chest exam- Primary Pre-operative respiratory examination documented in this encounter [facility] note* Diagnosis Pre-operative examination- Primary Preoperative examination, [...] neoplasm of breast documented in this encounter [facility] for referral (narrative)* Diagnostic Procedure Only (Routine) [...] Effie Pickard APRN.CNP [address] [place] [address] Br Imaging [address] [place] [address] Referral ID Status Reason Start Date Expiration Date V isits Requested Visits Authorized [id number] Closed Auto-Generate d Referral 12/12/2020 01/11/2022 1 1 T [facility] for referral (narrative)* Diagnostic Procedure Only (Routine) - Closed Specialty Diagnoses / Procedures Referred By Contac t Referred To Contact BR IMAGING Diagnoses Abnormal ultrasound of breast Procedures [facility]ERICK DIAGNOSTIC LT DIAGNOSTIC MAMMOGRAPHY COMPUTER-AIDED DETAzra Castellanos MD [address] [place] [address] Br Imaging [address] [place] [address] Referral ID Status Reason Start Date Expiration Date V isits Requested Visits Authorized [id number] Closed Auto-Generate d Referral 12/28/2021 01/27/2023 1 1 T [facility] for referral (narrative)* Diagnostic Procedure Only (Routine) - Closed Specialty Diagnoses / Procedures [facility] Referred To Contact BR IMAGING Diagnoses Abnormal ultrasound of breast Procedures M[facility]ERICK DIAGNOSTIC LT DIAGNOSTIC MAMMOGRAPHY COMPUTER-AIDED Azra Lombardo MD [address] [place] [address] Br Imaging [address] [place] [address] Referral ID Status Reason Start Date Expiration Date V isits Requested Visits Authorized [id number] Closed Auto-Generate d Referral 12/28/2021 01/27/2023 1 1 [facility] for referral (narrative)* Diagnostic Procedure Only (Routine) - Pending Review Specialty Diagnoses / Procedures Referred By Lauren patterson Referred To Contact BR IMAGING Diagnoses Abnormal mammogram Procedures US BREAST LTD LT US BREAST UNI REAL TIME WITH IMAGE LIMITED Azra Meeks MD [address] [place] [address] Br Imaging [address] [place] [address] Referral ID Status Reason Start Date Expiration Date Visits Requested Visits Authorized [id number] Pending Review Auto-Generat ed Referral 05/30/2022 02/01/2023 1 1 * Diagnostic Procedure Only (Routine) - Pending Review Specialty Diagnoses / Procedures Referred By Girishac yesenia Referred To Contact BR IMAGING Diagnoses Abnormal mammogram Procedures [facility] DIAGNOSTIC LT DIAGNOSTIC MAMMOGRAPHY COMPUTER-AIDED DETCJ UNI Azra Meeks MD [address] [place] [address] Br Imaging [address] [place] [address] Referral ID Status Reason Start Date Expiration Date Visits Requested Visits Authorized [id number] Pending Review Auto-Generat ed Referral 05/30/2022 02/01/2023 1 1 [facility] for referral (narrative)* Diagnostic Procedure Only (Routine) - Authorized Specialty Diagnoses / Procedures Referred By Lauren patterson Referred To Contact BR IMAGING Diagnoses Malignant neoplasm of upper-outer quadrant of left breast in female, estrogen receptor positive (HCC) Encounter for screening mammogram for high-risk patient Procedures MAVERICK SCREENING W LOIDA SCREENING DIGITAL BREAST TOMOSYNTHESIS BI SCREENING MAMMOGRAPHY BI 2-VIEW BREAST INC Effie Pickard, DOMINGO.HYDRO TECHNICIAN [address] [place] [address] Br Imaging [address] [place] [address] Referral ID Status Reason Start Date Expiration Date Visits Requested Visits Authorized [id number] Authorized Auto-Generat ed Referral 10/23/2022 11/22/2023 1 1 [facility] for referral (narrative)* Diagnostic Procedure Only (Routine) - Authorized Specialty Diagnoses / Procedures Referred By Girishac t Referred To Contact BR IMAGING Diagnoses Personal history of breast cancer Encounter for screening mammogram for high-risk patient Procedures MAVERICK SCREENING W LOIDA SCREENING DIGITAL BREAST TOMOSYNTHESIS BI SCREENING MAMMOGRAPHY BI 2-VIEW BREAST INC CAD Effie Vaz APRN.CNP [address] [place] [address] Br Imaging [address] [place] [address] Referral ID Status Reason Start Date Expiration Date Visits Requested Visits Authorized [id number] Authorized Auto-Generat ed Referral 01/04/2023 02/03/2024 1 1 [facility] for referral (narrative)* Diagnostic Procedure Only (Routine) - Authorized Specialty Diagnoses / Procedures Referred By Lauren patterson Referred To Contact BR IMAGING Diagnoses Malignant neoplasm of upper-outer quadrant of left breast in female, estrogen receptor positive (HCC) Abnormal mammogram of right breast Procedures US BREAST LTD RIGHT US BREAST UNI REAL TIME WITH IMAGE LIMITED Effie Vaz APRN.HYDRO TECHNICIAN [address] [place] [address] Br Imaging [address] [place] [address] Referral ID Status Reason Start Date Expiration Date Visits Requested Visits Authorized [id number] Authorized Auto-Generat ed Referral 01/06/2024 02/04/2025 1 1 * Diagnostic Procedure Only (Routine) - Authorized Specialty Diagnoses / Procedures Referred By Lauren patterson Referred To Contact BR IMAGING Diagnoses Malignant neoplasm of upper-outer quadrant of left breast in female, estrogen receptor positive (HCC) Abnormal mammogram of right breast Procedures [facility] RIGHT DIAGNOSTIC MAMMOGRAPHY COMPUTER-AIDED DETCJ UNI Effie Vaz APRN.HYDRO TECHNICIAN [address] [place] [address] Br Imaging [address] [place] [address] Referral ID Status Reason Start Date Expiration Date Visits Requested Visits Authorized [id number] Authorized Auto-Generat ed Referral 01/06/2024 02/04/2025 1 1 [facility] for referral (narrative)* Diagnostic Procedure Only (Routine) - Closed Specialty Diagnoses / Procedures Referred By Lauren patterson Referred To Contact BR IMAGING Diagnoses Malignant neoplasm of upper-outer quadrant of left breast in female, estrogen receptor positive (HCC) Abnormal mammogram of right breast Procedures US BREAST LTD RIGHT US BREAST UNI REAL TIME WITH IMAGE LIMITED Effie Vaz APRN.HYDRO TECHNICIAN [address] [place] [address] Br Imaging [address] [place] [address] Referral ID Status Reason Start Date Expiration Date V isits Requested Visits Authorized [id number] Closed Auto-Generate d Referral 01/06/2024 02/04/2025 1 1 [facility] for referral (narrative)* Diagnostic Procedure Only (Routine) - New Request Specialty Diagnoses / Procedures Referred By Lauren patterson Referred To Contact BR IMAGING Diagnoses History of left breast cancer Abnormal ultrasound of breast Procedures US BIOPSY BREAST RIGHT BX BREAST W/DEVICE 1ST LESION ULTRASOUND Azra Putnam MD [address] [place] [address] Br Imaging [address] [place] [address] Referral ID Status Reason Start Date Expiration Date Visits Requested Visits Authorized [id number] New Request Auto-Generat ed Referral 02/03/2024 03/04/2025 1 1 [facility] for referral (narrative)* Diagnostic Procedure Only (Routine) - Closed Specialty Diagnoses / Procedures Referred By Lauren patterson Referred To Contact BR IMAGING Diagnoses History of left breast cancer Abnormal ultrasound of breast Procedures US BIOPSY BREAST RIGHT BX BREAST W/DEVICE 1ST LESION ULTRASOUND Azra Putnam MD [address] [facility] [place] [address] Br Imaging [address] [place] [address] Referral ID Status Reason Start Date Expiration Date V isits Requested Visits Authorized [id number] Closed Auto-Generate d Referral 02/03/2024 03/04/2025 1 1 [facility] for referral (narrative)* Outpatient Procedure (Routine) - New Request Specialty Diagnoses / Procedures Referred By Lauren patterson [facility] Diagnoses 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) Estrogen receptor positive status (ER+) Personal history of malignant neoplasm of breast 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) Procedures ECG COMPLETE ECG ROUTINE ECG W/LEAST 12 LDS W/I&R Remington Sung MD [address] [place] [address] [facility] [address] [place] [address] Referral ID Status Reason Start Date Expiration Date Visits Requested Visits Authorized [id number] New Request Auto-Generat ed Referral 4 03/09/2025 1 1 * Transition of Care (Routine) - Ref Not Required Specialty Diagnoses / Procedures Referred By Lauren patterson Referred To Contact Diagnoses 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) Estrogen receptor positive status (ER+) Personal history of malignant neoplasm of breast 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) Procedures CONSULT TO MEDICAL GENETICS - CANCER Sung, [place] [address] [address] Referral ID Status Reason Start Date Expiration Date Visits Requested Visits Authorized [id number] Ref Not Required PCP Requested Referral 4 03/09/2025 1 1 * Diagnostic Procedure Only (Routine) - Authorized Specialty Diagnoses / Procedures 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) Estrogen receptor positive status (ER+) Personal history of malignant neoplasm of breast Procedures US AXILLA ONLY RIGHT US LMTD JOINT/OTH NONVASC XTR STRUX R-T W/Remington Raines MD [facility] [place] [address] Br Imaging [address] [place] [address] Referral ID Status Reason Start Date Expiration Date V isits Requested Visits Authorized [id number] Closed Auto-Generate d Referral 03/09/2024 04/08/2025 1 1 [facility] for referral (narrative)* Diagnostic Procedure Only (Routine) - Closed Specialty Diagnoses / Procedures Referred By Lauren patterson Referred To Contact BR IMAGING Diagnoses Malignant neoplasm of upper-outer 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, unspecified estrogen receptor status (HCC) Procedures US LOC BREAST RIGHT PERQ BREAST LOC DEVICE PLACEIN 1ST [facility] US IMAG Remington Sung MD [address] [facility] [place] [address] Br Imaging [address] [place] [address] Referral ID Status Reason Start Date Expiration Date V isits Requested Visits Authorized [id number] Closed Auto-Generate d Referral 04/01/2024 04/17/2025 1 1 [facility] for referral (narrative)* Diagnostic Procedure Only (Routine) - New Request Specialty Diagnoses / Procedures Referred By Lauren patterson Referred To Contact XR IMAGING Diagnoses History of vitamin D deficiency Disorder of bone, unspecified Procedures DXA-AXIAL SKELETON DXA BONE DENSITY STUDY 1/ SITES AXIAL SKEL Ibrahima Dhaliwal, [address] [facility] [place] [address] [place] [address] Referral ID Status Reason Start Date Expiration Date Visits Requested Visits Authorized [id number] New Request Auto-Generat ed Referral 05/14/2024 06/13/2025 1 1 [facility] for referral (narrative)No reason for referral information [facility]WMansfield [facility] Work Phone: Reason for visit Narrative* Diagnostic Procedure Only (Routine) [...] MAMMOGRAPHY BI 2-VIEW BREAST INC Effie Pickard APRN.HYDRO TECHNICIAN [address] [place] [address] Br Imaging [address] [place] [address] Referral ID Status Reason Start Date Expiration Date V isits Requested Visits Authorized [id number] Closed Auto-Generate d Referral 12/12/2020 01/11/2022 1 1 [facility] for visit Narrative* Diagnostic Procedure Only (Routine) - Closed Specialty Diagnoses / Procedures Referred By Lauren t Referred To Contact BR IMAGING Diagnoses Abnormal ultrasound of breast Procedures [facility] DIAGNOSTIC LT DIAGNOSTIC MAMMOGRAPHY COMPUTER-AIDED DETCJ Azra Calabrese MD [address] [place] [address] Br Imaging [address] [place] [address] Referral ID Status Reason Start Date Expiration Date V isits Requested Visits Authorized [id number] Closed Auto-Generate d Referral 12/28/2021 01/27/2023 1 1 [facility] [place] [facility] for visit Narrative* Diagnostic Procedure Only (Routine) - Closed Specialty Diagnoses / Procedures Referred By Lauren patterson Referred To Contact BR IMAGING Diagnoses Personal history of breast cancer Encounter for screening mammogram for high-risk patient Procedures MAVERICK SCREENING W LOIDA SCREENING DIGITAL BREAST TOMOSYNTHESIS BI SCREENING MAMMOGRAPHY BI 2-VIEW BREAST INC Effie Pickard APRN.HYDRO TECHNICIAN [address] [place] [address] Br Imaging [address] [place] [address] Referral ID Status Reason Start Date Expiration Date V isits Requested Visits Authorized [id number] Closed Auto-Generate d Referral 01/04/2023 02/03/2024 1 1 [facility] for visit Narrative* Diagnostic Procedure Only (Routine) - Closed Specialty Diagnoses / Procedures Referred By Lauren patterson Referred To Contact BR IMAGING Diagnoses Malignant neoplasm of upper-outer quadrant of left breast in female, estrogen receptor positive (HCC) Abnormal mammogram of right breast Procedures [facility] DIAGNO[facility] RIGHT DIAGNOSTIC MAMMOGRAPHY COMPUTER-AIDED DETCJ Effie Hunt APRN.HYDRO TECHNICIAN [address] [place] [address] Br Imaging [address] [place] [address] Referral ID Status Reason Start Date Expiration Date V isits Requested Visits Authorized [id number] Closed Auto-Generate d Referral 01/06/2024 02/04/2025 1 1 [facility] for visit Narrative* Diagnostic Procedure Only (Routine) - Closed Specialty Diagnoses / Procedures [facility] Referred To Contact BR IMAG[facility] Diagnoses History of left breast cancer Abnormal ultrasound of breast Procedures US BIOPSY BREAST RIGHT BX BREAST W/DEVICE 1ST LESION ULTRASOUND Azra Putnam MD [address] [place] [address] Br Imaging [address] [place] [address] Referral ID Status Reason Start Date Expiration Date V isits Requested Visits Authorized [id number] Closed Auto-Generate d Referral 02/03/2024 03/04/2025 1 1 [facility] for visit Narrative* Diagnostic Procedure Only (Routine) - Closed Specialty Diagnoses / Procedures 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 Referred To Contact Diagnoses Malignant neoplasm of upper-outer 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, unspecified estrogen receptor status Estrogen receptor positive Personal history of malignant neoplasm of breast Procedures Genetic Sendout: CancerNext-Expanded [place] [address] Phone: tel: fax: Referral ID Status Reason Start Date Expiration Date V isits Requested Visits Authorized [id number] Open Specialty Services Required 03/19/2024 03/19/2025 1 1 [facility] for visit Narrative* Diagnostic Procedure Only (Routine) - Closed Specialty Diagnoses / Procedures Referred By Contac t Referred To Contact BR IMAGING Diagnoses Malignant neoplasm of upper-outer 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, unspecified estrogen receptor status (HCC) Procedures US LOC BREAST RIGHT PERQ BREAST LOC DEVICE PLACE[address] US IMAG Remington Sung MD [facility] [place] [address] Br Imaging [address] [place] [address] Referral ID Status Reason Start Date Expiration Date V isits Requested Visits Authorized [id number] Closed Auto-Generate d Referral 04/01/2024 04/17/2025 1 1 [facility] for visit Narrative* Diagnostic Procedure Only (Routine) - Closed Specialty Diagnoses / Procedures Referred By Contac t Referred To Contact XR IMAGING Diagnoses History of vitamin D deficiency Disorder of bone, unspecified Procedures DXA-AXIAL SKELETON DXA BONE DENSITY STUDY SITES AXIAL SKEL Ibrahima Dhaliwal, [address] [place] [address] Phone: tel: fax: [place] [address] Referral ID Status Reason Start Date Expiration Date V isits Requested Visits Authorized [id number] Closed Auto-Generate d Referral 05/14/2024 06/13/2025 1 1 [facility] for visit Narrative* Diagnostic Procedure Only (Routine) - Closed Specialty Diagnoses / Procedures Referred By Contac t Referred To Contact BR IMAGING Diagnoses 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 [address] Phone: tel: fax: BR IMAGING [address] [place] [address] Referral ID Status Reason Start Date Expiration Date V isits Requested Visits Authorized [id number] Closed Auto-Generate d Referral 01/03/2025 11/13/2025 1 1 [facility] Summary Purpose Family History No Family History Records FoundNo Family History Records FoundNo Family History Records FoundNo Family History Records FoundNo Family History Records FoundNo Family History Records FoundNo Family History Records Found Advance Directives No Advanced Directives Records FoundDocuments on File Type Date Recorded 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 Advance Directive(s) 04/06/2021 9:55 AM Sc anned 04-06-2021 Advance Directive(s) 04/06/2021 9:55 AM Advance Directive(s) 03/24/2021 12:49 PM Advance Directive(s) 12/19/2020 7:40 AM Documents on File Type Date Recorded 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 RX HERE Chief Complaint OSTEOARTHRITIS BILAT ERAL KNEES. RX HERE RIGHT KNEE PASTORA PROTOCAL PREOP Chief Complaint Admit Date Unilateral primary osteoarthritis, left knee November 13, 2024 7:28am Additional Source Comments INFORMATION SOURCE (unrecogn ized section and content) DATE CREATED AUTHOR 03/27/2019 [facility] Susana louise [place] DATE CREATED AUTHOR AUTHOR'S ORGANIZ ATION 04/12/2021 [facility] DATE CREATED AUTHOR AUTHOR'S ORGANIZ ATION 03/11/2024 [facility] DATE CREATED AUTHOR AUTHOR'S ORGANIZ ATION 04/13/2024 [facility] DATE CREATED AUTHOR AUTHOR'S ORGANIZ ATION 10/24/2024 [facility] DATE CREATED AUTHOR AUTHOR'S ORGANIZ ATION 11/20/2024 [facility] DATE CREATED AUTHOR AUTHOR'S ORGANIZ ATION 02/19/2025 [facility] Source Comments (unrecognize d section and content) In the event this informatio n is protected by the Federal Confidentiality of Alcohol and Drug Abuse Patient Records regulations: The Federal rules restrict any use of the information to criminally investigate or prosecute any alcohol or drug abuse patient.[facility]In the event this information is protected by the Federal Confidentiality of Alcohol and Drug Abuse Patient Records regulations: The Federal rules restrict any use of the information to criminally investigate or prosecute any alcohol or drug abuse patient.[facility] HospitalIn the event this information is protected by the Federal Confidentiality of Alcohol and Drug Abuse Patient Records regulations: The Federal rules restrict any use of the information to criminally investigate or prosecute any alcohol or drug abuse patient.[facility] HospitalIn the event this information is protected by the Federal Confidentiality of Alcohol and Drug Abuse Patient Records regulations: The Federal rules restrict any use of the information to criminally investigate or prosecute any alcohol or drug abuse patient.[facility] HospitalIn the event this information is protected by the Federal Confidentiality of Alcohol and Drug Abuse Patient Records regulations: The Federal rules restrict any use of the information to criminally investigate or prosecute any alcohol or drug abuse patient.[facility] HospitalIn the event this information is protected by the Federal Confidentiality of Alcohol and Drug Abuse Patient Records regulations: The Federal rules restrict any use of the information to criminally investigate or prosecute any alcohol or drug abuse patient.[facility] HospitalIn the event this information is protected by the Federal Confidentiality of Alcohol and Drug Abuse Patient Records regulations: The Federal rules restrict any use of the information to criminally investigate or prosecute any alcohol or drug abuse patient.[facility] HospitalIn the event this information is protected by the Federal Confidentiality of Alcohol and Drug Abuse Patient Records regulations: The Federal rules restrict any use of the information to criminally investigate or prosecute any alcohol or drug abuse patient.[facility] HospitalIn the event this information is protected by the Federal Confidentiality of Alcohol and Drug Abuse Patient Records regulations: The Federal rules restrict any use of the information to criminally investigate or prosecute any alcohol or drug abuse patient.[facility] HospitalIn the event this information is protected by the Federal Confidentiality of Alcohol and Drug Abuse Patient Records regulations: The Federal rules restrict any use of the information to criminally investigate or prosecute any alcohol or drug abuse patient.[facility] HospitalIn the event this information is protected by the Federal Confidentiality of Alcohol and Drug Abuse Patient Records regulations: The Federal rules restrict any use of the information to criminally investigate or prosecute any alcohol or drug abuse patient.[facility] HospitalIn the event this information is protected by the Federal Confidentiality of Alcohol and Drug Abuse Patient Records regulations: The Federal rules restrict any use of the information to criminally investigate or prosecute any alcohol or drug abuse patient.[facility] HospitalIn the event this information is protected by the Federal Confidentiality of Alcohol and Drug Abuse Patient Records regulations: The Federal rules restrict any use of the information to criminally investigate or prosecute any alcohol or drug abuse patient.[facility] HospitalIn the event this information is protected by the Federal Confidentiality of Alcohol and Drug Abuse Patient Records regulations: The Federal rules restrict any use of the information to criminally investigate or prosecute any alcohol or drug abuse patient.[facility] HospitalIn the event this information is protected by the Federal Confidentiality of Alcohol and Drug Abuse Patient Records regulations: The Federal rules restrict any use of the information to criminally investigate or prosecute any alcohol or drug abuse patient.[facility] HospitalIn the event this information is protected by the Federal Confidentiality of Alcohol and Drug Abuse Patient Records regulations: The Federal rules restrict any use of the information to criminally investigate or prosecute any alcohol or drug abuse patient.[facility] HospitalIn the event this information is protected by the Federal Confidentiality of Alcohol and Drug Abuse Patient Records regulations: The Federal rules restrict any use of the information to criminally investigate or prosecute any alcohol or drug abuse patient.[facility] HospitalIn the event this information is protected by the Federal Confidentiality of Alcohol and Drug Abuse Patient Records regulations: The Federal rules restrict any use of the information to criminally investigate or prosecute any alcohol or drug abuse patient.[facility] HospitalIn the event this information is protected by the Federal Confidentiality of Alcohol and Drug Abuse Patient Records regulations: The Federal rules restrict any use of the information to criminally investigate or prosecute any alcohol or drug abuse patient.[facility] HospitalIn the event this information is protected by the Federal Confidentiality of Alcohol and Drug Abuse Patient Records regulations: The Federal rules restrict any use of the information to criminally investigate or prosecute any alcohol or drug abuse patient.[facility] HospitalIn the event this information is protected by the Federal Confidentiality of Alcohol and Drug Abuse Patient Records regulations: The Federal rules restrict any use of the information to criminally investigate or prosecute any alcohol or drug abuse patient.[facility] HospitalIn the event this information is protected by the Federal Confidentiality of Alcohol and Drug Abuse Patient Records regulations: The Federal rules restrict any use of the information to criminally investigate or prosecute any alcohol or drug abuse patient.[facility] HospitalIn the event this information is protected by the Federal Confidentiality of Alcohol and Drug Abuse Patient Records regulations: The Federal rules restrict any use of the information to criminally investigate or prosecute any alcohol or drug abuse patient.[facility] HospitalIn the event this information is protected by the Federal Confidentiality of Alcohol and Drug Abuse Patient Records regulations: The Federal rules restrict any use of the information to criminally investigate or prosecute any alcohol or drug abuse patient.[facility] HospitalIn the event this information is protected by the Federal Confidentiality of Alcohol and Drug Abuse Patient Records regulations: The Federal rules restrict any use of the information to criminally investigate or prosecute any alcohol or drug abuse patient.[facility] HospitalIn the event this information is protected by the Federal Confidentiality of Alcohol and Drug Abuse Patient Records regulations: The Federal rules restrict any use of the information to criminally investigate or prosecute any alcohol or drug abuse patient.[facility] HospitalIn the event this information is protected by the Federal Confidentiality of Alcohol and Drug Abuse Patient Records regulations: The Federal rules restrict any use of the information to criminally investigate or prosecute any alcohol or drug abuse patient.[facility] HospitalIn the event this information is protected by the Federal Confidentiality of Alcohol and Drug Abuse Patient Records regulations: The Federal rules restrict any use of the information to criminally investigate or prosecute any alcohol or drug abuse patient.[facility] HospitalIn the event this information is protected by the Federal Confidentiality of Alcohol and Drug Abuse Patient Records regulations: The Federal rules restrict any use of the information to criminally investigate or prosecute any alcohol or drug abuse patient.[facility] HospitalIn the event this information is protected by the Federal Confidentiality of Alcohol and Drug Abuse Patient Records regulations: The Federal rules restrict any use of the information to criminally investigate or prosecute any alcohol or drug abuse patient.[facility] HospitalIn the event this information is protected by the Federal Confidentiality of Alcohol and Drug Abuse Patient Records regulations: The Federal rules restrict any use of the information to criminally investigate or prosecute any alcohol or drug abuse patient.[facility] HospitalIn the event this information is protected by the Federal Confidentiality of Alcohol and Drug Abuse Patient Records regulations: The Federal rules restrict any use of the information to criminally investigate or prosecute any alcohol or drug abuse patient.[facility] HospitalIn the event this information is protected by the Federal Confidentiality of Alcohol and Drug Abuse Patient Records regulations: The Federal rules restrict any use of the information to criminally investigate or prosecute any alcohol or drug abuse patient.[facility] HospitalIn the event this information is protected by the Federal Confidentiality of Alcohol and Drug Abuse Patient Records regulations: The Federal rules restrict any use of the information to criminally investigate or prosecute any alcohol or drug abuse patient.[facility] HospitalIn the event this information is protected by the Federal Confidentiality of Alcohol and Drug Abuse Patient Records regulations: The Federal rules restrict any use of the information to criminally investigate or prosecute any alcohol or drug abuse patient.[facility] HospitalIn the event this information is protected by the Federal Confidentiality of Alcohol and Drug Abuse Patient Records regulations: The Federal rules restrict any use of the information to criminally investigate or prosecute any alcohol or drug abuse patient.[facility] HospitalIn the event this information is protected by the Federal Confidentiality of Alcohol and Drug Abuse Patient Records regulations: The Federal rules restrict any use of the information to criminally investigate or prosecute any alcohol or drug abuse patient.[facility] HospitalIn the event this information is protected by the Federal Confidentiality of Alcohol and Drug Abuse Patient Records regulations: The Federal rules restrict any use of the information to criminally investigate or prosecute any alcohol or drug abuse patient.[facility] HospitalIn the event this information is protected by the Federal Confidentiality of Alcohol and Drug Abuse Patient Records regulations: The Federal rules restrict any use of the information to criminally investigate or prosecute any alcohol or drug abuse patient.[facility] HospitalIn the event this information is protected by the Federal Confidentiality of Alcohol and Drug Abuse Patient Records regulations: The Federal rules restrict any use of the information to criminally investigate or prosecute any alcohol or drug abuse patient.[facility] HospitalIn the event this information is protected by the Federal Confidentiality of Alcohol and Drug Abuse Patient Records regulations: The Federal rules restrict any use of the information to criminally investigate or prosecute any alcohol or drug abuse patient.[facility] HospitalIn the event this information is protected by the Federal Confidentiality of Alcohol and Drug Abuse Patient Records regulations: The Federal rules restrict any use of the information to criminally investigate or prosecute any alcohol or drug abuse patient.[facility] HospitalIn the event this information is protected by the Federal Confidentiality of Alcohol and Drug Abuse Patient Records regulations: The Federal rules restrict any use of the information to criminally investigate or prosecute any alcohol or drug abuse patient.[facility] HospitalIn the event this information is protected by the Federal Confidentiality of Alcohol and Drug Abuse Patient Records regulations: The Federal rules restrict any use of the information to criminally investigate or prosecute any alcohol or drug abuse patient.[facility] HospitalIn the event this information is protected by the Federal Confidentiality of Alcohol and Drug Abuse Patient Records regulations: The Federal rules restrict any use of the information to criminally investigate or prosecute any alcohol or drug abuse patient.[facility] HospitalIn the event this information is protected by the Federal Confidentiality of Alcohol and Drug Abuse Patient Records regulations: The Federal rules restrict any use of the information to criminally investigate or prosecute any alcohol or drug abuse patient.[facility] HospitalIn the event this information is protected by the Federal Confidentiality of Alcohol and Drug Abuse Patient Records regulations: The Federal rules restrict any use of the information to criminally investigate or prosecute any alcohol or drug abuse patient.[facility] HospitalIn the event this information is protected by the Federal Confidentiality of Alcohol and Drug Abuse Patient Records regulations: The Federal rules restrict any use of the information to criminally investigate or prosecute any alcohol or drug abuse patient.[facility] HospitalIn the event this information is protected by the Federal Confidentiality of Alcohol and Drug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 General Surgery 04/16/24 Auger Operator Relationship Specialty Start Date End Date Gerardo Saleh MD [address] [place] [address] PCP - General Family Medicine 02/10/19 Juan Lopez MD [address] [facility] [place] [address] Physician Radiation Oncology 01/30/16 Ibrahima Dhaliwal DO [address] [place] [address] Hematology/Oncology 03/09/24 Lizeth Sifuentes APRN.HYDRO TECHNICIAN [facility] [place] [address] [facility] 04/04/24 Tiffany Ugarte PA-C [address] [place] [address] [facility] 04/04/24 Remington Sung MD [facility] [place] [address] General Surgery 04/16/24 Auger Operator Relationship Specialty Start Date End Date Gerardo Saleh MD [facility] [place] [address] PCP - General Family Medicine 02/10/19 Juan Lopez MD [address] [place] [address] Physician Radiation Oncology 01/30/16 Ibrahima Dhaliwal DO [address] [place] [address] Hematology/Oncology 03/09/24 Lizeth Sifuentes APRN.HYDRO TECHNICIAN [facility] [place] [address] [facility] 04/04/24 Tiffany Ugarte PA-C [address] [place], [place] 243057 [phone] Eligibility Supervisor Family Medicine 04/04/24 Remington Sung MD [facility] [address] [facility] [place] [address] General Surgery 04/16/24 Auger Operator Relationship Specialty Start Date End Date Gerardo Saleh MD [address] [place] [address] PCP - General Family Medicine 02/10/19 Juan Lopez MD [address] [place] [address] Physician Radiation Oncology 01/30/16 Ibrahima Dhaliwal DO [address] [place] [address] Hematology/Oncology 03/09/24 Lizeth Sifuentes APRN.HYDRO TECHNICIAN [address] [place] [address] Eligibility Supervisor Family [facility] 04/04/24 Tiffany Ugarte PA-C [address] [place] [address] Eligibility Supervisor Family Medicine 04/04/24 Remington Sung MD [address] [place] [address] General Surgery 04/16/24 Auger Operator Relationship Specialty Start Date End Date Gerardo Saleh MD [address] [place], [place] [phone] PCP - General Family Medicine 02/10/19 Juan Lopez MD [address] [place] [address] Physician Radiation Oncology 01/30/16 Ibrahima Dhaliwal DO [address] [place] [address] Hematology/Oncology 03/09/24 Lizeth Sifuentes APRN.HYDRO TECHNICIAN [address] [facility] [place] [address] Eligibility Supervisor [facility] 04/04/24 Tiffany Ugarte PA-C [address] [facility] [place] [address] [facility] 04/04/24 Remington Sung MD [address] [place] [address] General Surgery 04/16/24 Auger Operator Relationship Specialty Start Date End Date Gerardo Saleh MD [address] [facility] [place] [address] PCP - General Family Medicine 02/10/19 Juan Lopez MD [address] [place] [address] Physician Radiation Oncology 01/30/16 Ibrahima Dhaliwal DO [address] [place] [address] Hematology/Oncology 03/09/24 Lizeth Sifuentes APRN.HYDRO TECHNICIAN [address] [place] [address] [facility] 04/04/24 Tiffany Ugarte PA-C [address] [place] [address] [facility] 04/04/24 Remington Sung MD [facility] [place] [address] General Surgery 04/16/24 Auger Operator Relationship Specialty Start Date End Date Gerardo Saleh MD [address] [place] [address] PCP - General Family Medicine 02/10/19 Juan Lopez MD [address] [place] [address] Physician Radiation Oncology 01/30/16 Ibrahima Dhaliwal DO [address] [place] [address] Hematology/Oncology 03/09/24 Lizeth Siufentes APRN.CNP [address] [place] [address] [facility] 04/04/24 Tiffany Ugarte PA-C [address] [place] [address] [facility] 04/04/24 Remington Sung MD [address] [place] [address] General Surgery 04/16/24 Auger Operator Relationship Specialty Start Date End Date Gerardo Saleh MD [address] [facility] [place] [address] PCP - General Family Medicine 02/10/19 Juan Lopez MD [address] [place] [address] Physician Radiation Oncology 01/30/16 Ibrahima Dhaliwal DO [address] [place] [address] Hematology/Oncology 03/09/24 Lizeth Sifuentes APRN.[facility] [address] [facility] [place] [address] Eligibility Supervisor Family Medicine 04/04/24 Tiffany Ugarte PA-C [address] [place] [address], [place] [address] Eligibility Supervisor Family Medicine 04/04/24 Remington Sung MD [address] [place] [address] [place] [address] General Surgery 04/16/24 Auger Operator Relationship Specialty Start Date End Date Gerardo Saleh MD [address] [facility] [place] [address] PCP - General Family Medicine 02/10/19 Juan Lopez MD [address] [place] [address] Physician Radiation Oncology 01/30/16 Ibrahima Dhaliwal DO [address] [place] [address] Hematology/Oncology 03/09/24 Lizeth Sifuentes APRN.HYDRO TECHNICIAN [address] [place] [address] [facility] 04/04/24 Tiffany Ugarte PA-C [address] [place] [address] [facility] 04/04/24 Remington Sung MD [address] [place] [address] General Surgery 04/16/24 Auger Operator Relationship Specialty Start Date End Date Gerardo Saleh MD [address] [place] [address] PCP - General Family Medicine 02/10/19 Juan Lopez MD [address] [place] [address] Physician Radiation Oncology 01/30/16 Ibrahima Dhaliwal DO [address] [place] [address] Hematology/Oncology 03/09/24 Lizeth Sifuentes APRN.HYDRO TECHNICIAN [address] [place] [address] [facility] 04/04/24 Tiffany Ugarte PA-C [address] [place] [address] [facility] 04/04/24 Remington Sung MD [address] [place] [address] General Surgery 04/16/24 Auger Operator Relationship Specialty Start Date End Date Gerardo Saleh MD [address] [place], [place] [address]458[address] [phone] PCP - General Family Medicine 02/10/19 Juan Lopez MD [address] [place] [address] Physician Radiation Oncology 01/30/16 Ibrahima Dhaliwal DO [address] [place] [address] Hematology/Oncology 03/09/24 Remington Sung MD [facility] [place] [address] General Surgery 04/16/24 Lizeth Sifuentes APRN.[facility] [address] [place] [address] Eligibility Supervisor Family [facility] 09/28/24 Tiffany Ugarte PA-C [address] [place] [address] Eligibility Supervisor Family [facility] 09/28/24 Auger Operator Relationship Specialty Start Date End Date Gerardo Saleh MD [address] [place] [address] PCP - General Family Medicine 02/10/19 Juan Lopez MD [address] [place] [address] Physician Radiation Oncology 01/30/16 Ibrahima Dhaliwal DO [address] [facility] [place] [address] Hematology/Oncology 03/09/24 Remington Sung MD [address] [place] [address] General Surgery 04/16/24 Lizeth Sifuentes APRN.HYDRO TECHNICIAN [address] [place], [place] [address] [phone] Eligibility Supervisor Family Medicine 09/28/24 Tiffany Ugarte PA-C [address] [place] [address] [facility] 09/28/24 Auger Operator Relationship Specialty Start Date End Date Gerardo Saleh MD [address] [place] [address] PCP - General Family Medicine 02/10/19 Juan Lopez MD [address] [place] [address] Physician Radiation Oncology 01/30/16 Ibrahima Dhaliwal DO [address] [place] [address] Hematology/Oncology 03/09/24 Remington Sung MD [address] [place] [address] General Surgery 04/16/24 Lizeth Sifuentes APRN.HYDRO TECHNICIAN [address] [place] [address] Eligibility Supervisor Family [facility] 09/28/24 Tiffany Ugarte PA-C [address] [place], [place] [address] [facility] 09/28/24 Auger Operator Relationship Specialty Start Date End Date Gerardo Saleh MD [address] [place], [place] [address] PCP - General Family Medicine 02/10/19 Juan Lopez MD [address], [place] [address] Physician Radiation Oncology 01/30/16 Ibrahima Dhaliwal DO [address], [place] [address] Hematology/Oncology 03/09/24 Remington Sung MD [address] [place] [address] [place] [address] General Surgery 04/16/24 Lizeth Sifuentes APRN.CNP [address] [place], [place] [address] [facility] 09/28/24 Tiffany Ugarte PA-C [address] [place], [place] [id number] [facility] 09/28/24 Team Status: Active Member Role/Relationship Status Dates Dr. Gerardo Saleh MD Primary Care Provider Active Team Status: Inactive Member Role/Relationship Status Dates Dr. Gerardo Saleh MD Primary Care Provider Active Start: November 13, 2024 End: November 13, 2024 Dr. Justin Das MD Attending Provider Active Start: November 13, 2024 End: November 13, 2024 Dr. Justin Das MD Referring Provider Active Start: November 13, 2024 End: November 13, 2024 Auger Operator Relationship Specialty Start Date End Date Gerardo Saleh MD [address] [facility] [place] [address] PCP - General Family Medicine 02/10/19 Juan Lopez MD [address] [facility] [address] Physician Radiation Oncology 01/30/16 Ibrahima Dhaliwal DO [address] [facility] [place] [address] Hematology/Oncology 03/09/24 Remington Sung MD [address] [place] [address] [place] [address] General Surgery 04/16/24 Lizeth Sifuentes APRN.[facility] [address] [place] [id number] Eligibility Supervisor Family Medicine 09/28/24 Tiffany Ugarte PA-C [address] [facility] [place] [address] Eligibility Supervisor Family Medicine 09/28/24 Auger Operator Relationship Specialty Start Date End Date Gerardo Saleh MD [address] [facility] [place] [address] PCP - General Family Medicine 02/10/19 Juan Lopez MD [address] [facility] [place] [address] Physician Radiation Oncology 01/30/16 Ibrahima Dhaliwal DO [address] [place] [address] Hematology/Oncology 03/09/24 Remington Sung MD [address] [place] [address] General Surgery 04/16/24 Lizeth Sifuentes APRN.HYDRO TECHNICIAN [address] [place] [address] [facility] 09/28/24 Tiffany Ugarte PA-C [address] [facility] [place] [address] [facility] 09/28/24 Auger Operator Relationship Specialty Start Date End Date Gerardo Saleh MD [address] [place] [address] PCP - General Family Medicine 02/10/19 Juan Lopez MD [address] [facility] [place] [address] Physician Radiation Oncology 01/30/16 Ibrahima Dhaliwal DO [address] [place] [address] Hematology/Oncology 03/09/24 Remington Sung MD [address] [place] [address] General Surgery 04/16/24 Lizeth Sifuentes APRN.HYDRO TECHNICIAN [address] [place], [place] [address] [facility] 09/28/24 Tiffany Ugarte PA-C [address] [place], [place] [address] [facility] 09/28/24 Auger Operator Relationship Specialty Start Date End Date Gerardo Saleh MD [address] [place], [place] [id number] PCP - General Family Medicine 02/10/19 Juan Lopez MD [address] [place] [address] Physician Radiation Oncology 01/30/16 Ibrahima Dhaliwal DO [address], [place] 155371 Hematology/Oncology 03/09/24 Remington Sung MD [facility] [place] [address] General Surgery 04/16/24 Lizeth Sifuentes APRN.HYDRO TECHNICIAN [address] [place] [phone] [facility] 09/28/24 Tiffany Ugarte PA-C [address] [place], [place] [id number] [facility] 09/28/24 Goals (unrecognized section and content) Goals may be documented in a n alternate sectionGoals may be documented in an alternate sectionGoals may be documented in an [...] BE BASED ON THE PRIMARY CLINICAL RECORDS. [facility]. provides no warranty or guarantee of the accuracy or completeness of information in this document.
[2025-04-15 04:55] LABS: Hematocrit 42.5 % (37-47); Hemoglobin 14.0 g/dL (12.0-15.0); Immature Granulocytes Count 0.030 X10^3/uL (0.0-0.0); Mean Corp Hgb Conc 32.9 g/dL (32-36); Mean Corpuscular Volume 90.2 fL (81-99); Mean Platelet Vol. 9.2 fl (6.2-12.0); NRBC Flagged by Analyzer 0 % (0-5); POSITIVE DIFFERENTIAL YES; Platelet Count 345 K/mm3 (150-450); RBC Distribution Width CV 13.2 % (11.6-14.6); RBC Distribution Width SD 43.3 fl (35.1-43.9); Red Blood Count 4.71 M/mm3 (4.2-5.4); White Blood Count 8.8 K/mm3 (4.4-11.0)
[2025-04-15] MEDS: 0.9% Normal Saline (1000mL) 1,000 ML 999 ML IV (04:55)
--- NOTE | 2025-04-15 05:00 | RAD_ITS ---
PROCEDURE: CHEST 1 VIEW (PORTABLE) 04/15/2025 REASON FOR EXAM: COUGH TECHNIQUE: Frontal view of the chest. COMPARISON: October 13, 2020 FINDINGS: There is mild cardiomegaly without overt CHF. There are increased interstitial markings in the left mid and lower lung and lingular segment, similar to the prior, with a component of acute infiltrate not excluded. There is no pneumothorax or significant effusion. Surgical clips are noted in the left chest. Aortic calcifications are visible. There is no acute bony abnormality. RAD/Chest 1 View (Portable) IMPRESSION: There is mild cardiomegaly without overt CHF. There are increased interstitial markings in the left mid and lower lung and li ngular segment, similar to the prior, with a component of acute infiltrate not excluded. Reading Location: [facility]
[2025-04-15 05:01] VITALS: PULSE 111; RESP 20; O2SAT 96
[2025-04-15 05:23] LABS: D-Dimer Quantitative (DVT/PE) 0.74 FEU/ug/m (0.27-0.49)
[2025-04-15 05:25] LABS: Anion Gap 11 (5-15); BUN 11 mg/dL (4-19); BUN/Creat Ratio 14.4 RATIO (10-20); Calcium,Total 9.4 mg/dL (7.6-11.0); Carbon Dioxide 26.6 mmol/L (21.0-32.0); Chloride 100 mmol/L (98-108); Estimated Creatinine Clearance 70.58 ml/min (50-250); Glucose 149 mg/dL (70-99); Magnesium 2.0 mg/dL (1.5-2.2); Potassium 4.0 mmol/L (3.3-5.1); Troponin T High Sensitivity 7 ng/L (<=14)
[2025-04-15 06:00] VITALS: PULSE 100; RESP 18; O2SAT 100
--- NOTE | 2025-04-15 06:51 | EX.ED.DYSGE1 ---
HPI History of Present Illness Chief Complaint: Chest Pain Informant: patient, family and EMS Narrative Narrative: Patient is a 74-year-old female who states that she has had cough and congestion for approximately 3 weeks. She was seen by her family doctor and placed on a Z-Kalpesh secondary to this. She states despite taking the medication there was no real improvement in her symptoms. However in the last 24 hours she has had worsening cough and shortness of breath as well as headache and fatigue and upper abdominal/lower chest discomfort. Secondary to this EMS was called and she was brought in for evaluation [facility] Medical History Breast cancer Carpal tunnel syndrome of left wrist Carpal tunnel syndrome of right wrist Home Medications ?Medication ?Instructions ?Recorded ?Last Taken ?Type biotin 500 mcg capsule 2 mg PO DAILY 04/15/25 Unknown History calcium carbonate (Alkums) 300 mg PO DAILY 04/15/25 Unknown History cholecalciferol (vitamin D3) 50 50 mcg PO DAILY 04/15/25 Unknown History mcg (2,000 unit) tablet (D3 DOTS) exemestane 25 mg tablet 25 mg PO DAILY 04/15/25 Unknown History multivitamin with minerals-folic 1 tab PO DAILY 04/15/25 Unknown History acid 80 mcg chewable tablet (Centrum MultiGummies Women) Allergy/AdvReac Type Severity Reaction Status Date / Time Penicillins Allergy Swelling Verified 04/15/25 04:12 Sulfa (Sulfonamide Allergy Itching Verified 04/15/25 04:12 Antibiotics) Social History Smoking Status: Never smoker ROS [facility] ED Constitutional Constitutional ED: Reports chills, fever(s), subjective and other Details: Positive fatigue ENT ENT ED: Reports rhinorrhea and sore throat Cardiovascular Cardiovascular: Reports chest pain and racing heartbeat Respiratory/Chest Respiratory/Chest: Reports cough and dyspnea Gastrointestinal Gastrointestinal: Reports nausea; Denies abdominal pain, diarrhea or vomiting Genitourinary Genitourinary ED: Denies dysuria Musculoskeletal Musculoskeletal: Reports myalgias Integumentary Denies rash Neurologic Neurologic: Reports headache(s) Hematologic/Lymphatic Hematologic/Lymphatic: Denies easy bleeding or easy bruising Allergic/Immunologic Allergic/Immunologic ED: Denies mouth swelling or tongue swelling EXAM Physical Exam Const Vital Signs: 04/15/25 04:02 04/15/25 04:11 04/15/25 05:01 Temperature 99.5 F H Temperature Source Oral Pulse Rate 111 H 111 H Respiratory Rate 17 20 H Respiratory Effort Normal Non-Labored Respiratory Pattern Normal Blood Pressure 136/79 H Blood Pressure Mean 98 Pulse Ox 95 96 Oxygen Delivery Method Room Air Room Air 04/15/25 06:00 04/15/25 07:00 04/15/25 08:00 Temperature Temperature Source Pulse Rate 100 99 75 Respiratory Rate 18 19 H 16 Respiratory Effort Respiratory Pattern Blood Pressure 129/62 H 113/74 Blood Pressure Mean 84 87 Pulse Ox 100 95 99 Oxygen Delivery Method Room Air Room Air Room Air 04/15/25 08:00 Temperature 98.1 F Temperature Source Pulse Rate 75 Respiratory Rate 16 Respiratory Effort Respiratory Pattern Blood Pressure 113/74 Blood Pressure Mean 87 Pulse Ox 97 Oxygen Delivery Method Positive well nourished and well developed General Appearance ED: well developed; Negative for pallor HEENT HEENT Narrative: Normocephalic atraumatic No tongue or lip swelling no oral lesions no airway edema or compromise There is cobblestoning the posterior pharynx consistent with sinus drainage but no secondary findings in the posterior pharynx to suggest infection Eyes PERRL and EOMs intact bilaterally Neck supple and no JVD Chest Wall palpation of chest normal Resp normal respiratory effort Resp Narrative: Breath sounds are diminished throughout with faint rhonchi in the bilateral bases Otherwise no nasal flaring retractions or accessory muscle use Cardio regular rhythm Rate: tachycardic and other Other Details: Tachycardic rate with regular rhythm Grade 3 out of 6 systolic murmur noted Radial and carotid pulses are equal and symmetric GI non-tender, non-distended and no masses GI Narrative: Abdomen is soft nontender nondistended with hyperactive bowel sound No voluntary guarding or rigidity or pulsatile mass Auscultation: hyperactive bowel sounds Palpation: soft Extremity normal to inspection Extremity Narrative: Negative Homans' sign bilaterally Neuro oriented x3, CN's II-XII intact bilaterally and no sensory deficits noted Sensorium / Orientation: alert Motor Exam: strength 5/5 throughout Psych mental status grossly normal Skin no rashes or lesions noted and no wounds General Skin Exam: Negative for jaundice or pallor MDM MDM MDM Narrative Medical decision making narrative: Patient arrived to the ER mildly tachycardic with low-grade fever. She reported being sick for approximately 3 weeks but in the last 24 hours has had worsening symptoms. In order to assess for COVID versus influenza versus RSV as a cause of her worsening symptoms a viral swab was obtained. In order to assess for acute blood loss anemia or acute kidney injury or [place] abnormality basic blood work was ordered. The patient did report chest discomfort but she is painful all over and it seems to be more related to coughing but in order to assess for potential cardiac dysrhythmia or acute coronary syndrome an EKG was obtained. This revealed sinus tachycardia without ischemic or dysrhythmia changes. Initial troponin was 7 going against acute coronary syndrome. 2-hour delta did increase to a value of 15 and her D-dimer is 0.02 above the normal value for her age of 0.72. Because of the slight elevation of the troponin and the D-dimer we did discuss a 4-hour troponin as well as CTA of the chest. However she has influenza A and this will cause her symptom profile as well as the changes to those values. The patient states that after receiving Toradol and IV fluids she does feel better and she agrees that she has a low concern this is cardiac or PE as her symptom profile does not correlate and her values are just slightly elevated and there is a reason for this with the influenza. Therefore as she is not hypoxic or in respiratory distress and is overall feeling improvement she would prefer to be discharged home. We did discuss potential Tamiflu but based on side effect profile and the fact it may only improve her symptoms 24 hours quicker than they would resolve spontaneously she does not want this medication. Therefore at this time there is reason for the patient's symptoms and the influenza A but she does not have hypoxia or respiratory distress or pneumonia and EKG does not show cardiac dysrhythmia or ischemic findings and her troponins are not truly elevated going against acute coronary syndrome or viral myocarditis and therefore patient is otherwise safe for discharge History & Record Review Discussion w/independent historian: Patient and Family Lab Data Attestation: I reviewed the patient's lab results. Labs: Laboratory Results - last 24 hr 04/15/25 04/15/25 04:41 06:58 WBC 8.8 RBC 4.71 Hgb 14.0 Hct 42.5 MCV 90.2 MCH 29.7 MCHC 32.9 RDW Std Deviation 43.3 RDW Coeff of Joey 13.2 Plt Count 345 MPV 9.2 Immature Gran % (Auto) 0.300 Neut % (Auto) 87.5 H Lymph % (Auto) 3.3 L Sevier % (Auto) 7.8 Eos % (Auto) 0.5 Baso % (Auto) 0.6 Absolute Neuts (auto) 7.7 Absolute Lymphs (auto) 0.29 L Nucleated RBC % 0 D-Dimer Quant (PE/DVT) 0.74 H* Sodium 138 Potassium 4.0 Chloride 100 Carbon Dioxide 26.6 Anion Gap 11 BUN 11 Creatinine 0.78 Estim Creat Clear Calc 70.58 Est GFR (MDRD) Non-Af 81 BUN/Creatinine Ratio 14.4 Glucose 149 H Calcium 9.4 Magnesium 2.0 Troponin T High Sens 7 Troponin T Hi Sens 2 Hr 15 H Radiography Diagnostic Testing: Clinical Impression(s) from Imaging Studies Chest X-Ray 04/15/25 05:00 IMPRESSION: There is mild cardiomegaly without overt CHF. There are increased interstitial markings in the left mid and lower lung and lingular segment, similar to the prior, with a component of acute infiltrate not excluded. Reading Location: [facility] Chest x-ray reveals mild cardiomegaly with perihilar haziness consistent inflammation without acute infiltrate or pneumothorax Discharge Plan Triage Chief Complaint: Chest Pain ED Provider: Kirby Florez Dx/Rx/DC Orders Clinical Impression: Influenza A, Myalgia Instructions: ED Influenza (Adult) Prescriptions: No Action exemestane 25 mg tablet 25 mg PO DAILY Centrum MultiGummies Women 80 mcg tablet,chewable 1 tab PO DAILY biotin 500 mcg capsule 2 mg PO DAILY cholecalciferol (vitamin D3) [D3 DOTS] 50 mcg (2,000 unit) tablet 50 mcg PO DAILY Alkums 300 mg (750 mg) tablet,chewable 300 mg PO DAILY Primary Care Provider: Gerardo Mcnally Referrals: Gerardo Mcnally MD [Primary Care Provider, Family Practice] Activity Restrictions/Additional Instructions: You tested positive for influenza A. This is a viral infection which will need to resolve spontaneously and will typically last anywhere from 5 to 10 days. You can take 2 extra strength Tylenol up to 4 times a day as well as 3 [id number] Motrin/ibuprofen 4 times a day to help control fever as well as muscle aches and pains. Keep yourself well-hydrated. If you feel like your symptoms are worsening or you have any further concerns return to the ER for repeat evaluation Print Language: Mozambican Disposition Disposition: Home, Self Care Discharge Date/Time: 04/15/25 08:13
[2025-04-15 07:00] VITALS: BP 129/62; PULSE 99; RESP 19; O2SAT 95
[2025-04-15 07:19] LABS: Troponin T High Sens 2 HR 15 ng/L (<=14)
[2025-04-15 08:00] VITALS: BP 113/74; PULSE 75; RESP 16; TEMP 36.7; O2SAT 97; O2SAT 99
== END 2025-04-15 08:13 | disposition home or self-care (01) ==
PROVIDERS: Emergency Provider Emergency Medicine; PCP Family Medicine; Visit Provider Emergency Medicine
DX: J10.1 Influenza due to other identified influenza virus with other respiratory manifestations (principal); M79.10 Myalgia, unspecified site
CPT/HCPCS: 71045; 80048; 83735; 84484; 85025; 85379; 87631; 93005; 96361; 96374; 99285; A4216